=== PATIENT | male | born 1945 | race Caucasian/White ===

== ENCOUNTER → 2021-05-04 10:21 | Outpatient (CLI) | payer OTHER, SELFPAY ==
--- NOTE | ~2021-05-04 | XR_ITS ---
EXAMINATION: XR chest 2V EXAM DATE: 05/04/2021 10:50 INDICATION: R06.02 - Shortness of breath TECHNIQUE: Frontal and lateral projections of the chest obtained and reviewed. There is no prior basim dy for comparison. FINDINGS: Mild hyperinflation. The lungs are clear. There are no pleural effusions. The cardiomedia stinal silhouette is within normal limits. There is no pneumothorax suspected. Mild thoracic spondy losis. IMPRESSION: Mild hyperinflation. Clear lungs. Reviewed, dictated and finalized at location A.
== END ==
PROVIDERS: PCP Internal Medicine; Visit Provider Internal Medicine
DX: R06.02 Shortness of breath (principal); R91.8 Other nonspecific abnormal finding of lung field
CPT/HCPCS: 71046

== ENCOUNTER → 2021-06-27 03:51 | Outpatient (CLI) | payer OTHER, SELFPAY ==
[2021-06-28 19:26] LABS: SARS-CoV-2 RNA PCR Negative
== END ==
PROVIDERS: PCP Internal Medicine; Visit Provider Specialist
DX: Z01.812 Encounter for preprocedural laboratory examination (principal); Z20.822 Contact with and (suspected) exposure to COVID-19
CPT/HCPCS: C9803; U0003; U0005

== ENCOUNTER 2021-06-30 02:27 | Day surgery (SDC) | payer OTHER, SELFPAY ==
[2021-06-29 13:38] VITALS: BMI 31.4
[2021-06-30] VITALS (14 sets, daily range): BP systolic 107–158; BP diastolic 71–88; PULSE 50–76; RESP 14–22; TEMP 36.2–36.4; O2SAT 96–100; BMI 31.5
[2021-06-30 07:53] LABS: Basophils Percent Auto 0.5 % (0.2-1.2); Eosinophils Percent Auto 0.7 % (0-4.4); Hematocrit 43.6 % (42.0-52.0); Immature Granulocyte Absolute 0.02 K/mm3 (0.00-0.031); Immature Granulocyte Percent A 0.3 % (0-0.5); Lymphocytes Absolute Auto 1.36 K/mm3 (0.9-3.2); Lymphocytes Percent Auto 22.5 % (18.3-44.2); Mean Corpuscular HGB Conc 34.4 g/dl (32-36); Mean Corpuscular Hemoglobin 31.8 pg (26-34); Mean Corpuscular Volume 92.4 fl (80-100); Mean Platelet Volume 10.2 fl (7.4-10.4); Monocytes Absolute Auto 0.5 K/mm3 (0.1-0.6); Monocytes Percent Auto 8.9 % (2.6-8.5); Neutrophils Absolute Auto 4.1 K/mm3 (1.3-6.7); Neutrophils Percent Auto 67.1 % (45.5-73.1); Platelet Count Result 203 k/mm3 (150-375); Red Blood Count 4.72 M/mm3 (4.6-6.20); Red Cell Distribution Width 12.4 % (11.5-14.5); White Blood Count 6.1 K/mm3 (4.5-10.0)
[2021-06-30 08:03] LABS: Prothrombin Time 12.9 Seconds (11.1-14.7)
[2021-06-30 08:05] LABS: Anion Gap 9 mmol/L (8-16); Blood Urea Nitrogen 13 mg/dL (9-20); Calcium 9.4 mg/dL (8.4-10.2); Carbon Dioxide 28 mmol/L (22-30); Chloride 105 mmol/L (98-107); Estimated CRCL calculation 66 ml/min; Estimated Glomerular Filt Rate > 60; Glucose 101 mg/dL (65-110); Potassium 4.1 mmol/L (3.4-5.0); Sodium 142 mmol/L (137-145)
--- NOTE | 2021-06-30 08:57 | PM.IMHP ---
H&P: HPI History of Present Illness Date/Time: 06/30/21 08:57 Chief Complaint: Symptoms of exertional dyspnea, abnormal stress echocardiogram Narrative: This is a 75-year-old man who was seen by me in consultation as an outpatient who is scheduled today for an outpatient elective left heart catheterization. The patient has no prior history of documented cardiac problems but was referred to see me in the office because of shortness of breath. He noticed that for the last couple of months he would have some very mild shortness of breath with activity that was not bothering him in the past. He had previously been seen by 1 of my former partners number of years ago but does not remember the reason for that consultation. He does not remember there being any cardiac pathology identified however. The patient is not reporting a sense of chest pain pressure or heaviness. He does not have any orthopnea PND or accumulating lower extremity edema. After being seen in the office in consultation a stress echocardiogram was performed which showed some nonspecific ST segment changes on the treadmill but appeared to show wall motion abnormalities compatible with anterior ischemia. Because of this of angiogram was recommended and he is admitted for that today. He otherwise considers himself to be in fairly good health until recent years he was exercising regularly he then developed a back injury and had to stop exercising for that reason. 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 Past medical history is otherwise remarkable for obesity and sleep apnea. [facility] Past Medical History Medical History Cardiac arrhythmia Sleep apnea Family History Family History Mother Heart disease Father Heart disease Social History Social History Smoking status: Former smoker Substance use: never Living arrangements: with family Meds Home Medications and Allergies Home Medications Medication Instructions Recorded Confirmed Type cyclosporine [Restasis] 1 drp EACH EYE BID 06/29/21 06/29/21 History gabapentin 200 mg PO DAILY 06/29/21 06/29/21 History Allergies Allergy/AdvReac Type Severity Reaction Status Date / Time No Known Allergies Allergy Verified 06/29/21 13:35 Vital Signs Vital Signs - 24 hr 06/30/21 08:04 Temperature 36.4 C L Pulse Rate 76 Respiratory Rate 22 H Blood Pressure 158/88 H Pulse Oximetry 96 Exam Const: General: comfortable and no acute distress Other: Pleasant comfortable gentleman appearing his stated age no distress HENMT: Mouth: Yes moist mucous membranes Eyes: Sclera: sclerae normal Pupils: Equal, round and reactive pupils present Neck: Neck: supple and no JVD Thyroid: thyroid normal Resp: Effort & Inspection: normal respiratory effort Auscultation: clear to auscultation bilaterally Cardio: Rate: regular rate Rhythm: regular rhythm Other: PMI nondisplaced no murmur no gallop no rub GI: GI Palp: Yes Soft to palpation Auscultation: normal bowel sounds Skin: General skin exam: normal color Neuro: Cognition (Neuro): normal cognition Extrem: General: normal to inspection H&P: Results Labs Labs: Short CBC 06/30/21 Range/Units 07:43 WBC 6.1 (4.5-10.0) K/mm3 Hgb 15.0 (14.0-18.0) g/dL Hct 43.6 (42.0-52.0) % Plt Count 203 (150-375) k/mm3 [facility] 06/30/21 07:43 Sodium 142 Potassium 4.1 Chloride 105 Carbon Dioxide 28 BUN 13 Creatinine 1.10 Glucose 101 Calcium 9.4 Assessment and Plan Additional Plan 75-year-old man with symptoms of shortness of breath with activity. His stress echocardiogram done as an outpatient suggests the possibility of underlying coronary disease and for this reason an angiogram has been scheduled for today. That will be performed as scheduled and further elsie
--- NOTE | 2021-06-30 09:56 | WPDMODSED ---
Moderate Sedation Note-Pt Data Patient Data Diagnosis: Exertional angina of recent onset abnormal stress echo Present Complaint: this is a 75-year-old man without previous knowledge of coronary disease he has been experiencing exertional dyspnea with chest discomfort typical of angina for about 2 months. A stress echo done as an outpatient with abnormal suggesting anterior ischemia. Following this angiography was recommended Procedure to be performed/Plan: coronary angiography left ventriculography Allergies Allergy/AdvReac Type Severity Reaction Status Date / Time No Known Allergies Allergy Verified 06/29/21 13:35 Home Medications Medication Instructions Recorded Confirmed Type cyclosporine [Restasis] 1 drp EACH EYE BID 06/29/21 06/29/21 History gabapentin 200 mg PO DAILY 06/29/21 06/29/21 History Current Medications: Active Medications Sodium Chloride (Normal Saline Iv) 500 mls @ 100 mls/hr IV CONT .Q5H JAY Sedation/Anesthesia: No previous sedation/anesthesia problems (including family history). PMFSH Past Medical History Medical History Cardiac arrhythmia Sleep apnea Family History Family History Mother Heart disease Father Heart disease Social History Social History Smoking status: Former smoker Substance use: never Living arrangements: with family Mod Sed Physical Exam Physical Exam Pre Procedural Exam: Normal: Appearance, Neck, Throat, Airway, Lungs, Heart Size, Heart Rate, Heart Rhythm, Neuro Exam and Extremities Hours since solid foods: 12 Hours since liquid intake: 12 Mallampati Classification: class II Internal Medicine - PN: Obj Da Vital Signs Vital Signs: Vital Signs - 24 hr 06/30/21 08:04 Temperature 36.4 C L Pulse Rate 76 Respiratory Rate 22 H Blood Pressure 158/88 H Pulse Oximetry 96 Meds/Results Medications: Active Medications Generic Name Dose Route Start Last Admin Trade Name Freq PRN Reason Stop Dose Admin Sodium Chloride 500 mls @ 100 mls/hr 06/30/21 07:30 Normal Saline Iv IV CONT .Q5H JAY Labs CBC & Chem 7: 06/30/21 07:43 06/30/21 07:43 Labs: Laboratory Results - last 24 hr 06/30/21 06/30/21 06/30/21 07:43 07:43 07:43 WBC 6.1 RBC 4.72 Hgb 15.0 Hct 43.6 MCV 92.4 MCH 31.8 MCHC 34.4 RDW 12.4 Plt Count 203 MPV 10.2 Immature Gran % (Auto) 0.3 Neut % (Auto) 67.1 Lymph % (Auto) 22.5 Tift % (Auto) 8.9 H Eos % (Auto) 0.7 Baso % (Auto) 0.5 Lymph # (Auto) 1.36 [place]ift # (Auto) 0.5 Eos # (Auto) 0.0 Baso # (Auto) 0.0 Abs Immat Gran (auto) 0.02 Absolute Neuts (auto) 4.1 Absolute Nucleated RBC 0.0 Nucleated RBC % 0.0 PT 12.9 INR 1.0 Sodium 142 Potassium 4.1 Chloride 105 Carbon Dioxide 28 Anion Gap 9 BUN 13 Creatinine 1.10 Estim Creat Clear Calc 66 Estimated GFR > 60 Glucose 101 Calcium 9.4 ASA Classification/Sedation ASA Classification/Sedation ASA Class: III Emergent: No Risks: Risks, benefits and alternatives explained and patient/family accepted plan for sedation. Patient re-evaluated immediately prior to sedation.
--- NOTE | 2021-06-30 10:00 | WPDCARDPROC ---
Cardiac Cath Procedure Note Date of procedure:: 06/30/21 Performing physician:: Efren Sawyer MD Indication:: exertional chest discomfort and dyspnea abnormal stress echo Brief clinical history:: this is a 75-year-old man with no previous history of coronary disease present of experiencing exertional discomfort for about 2 months suggestive of angina. Stress echo done in the office was significantly abnormal prompting recommendation to perform an angiogram. Procedure Procedure performed:: Left ventriculography coronary angiography Sedation/Medication given:: fentanyl 50 mg Versed 2 mg case start time 9:22 a.m. case end time 9:48 a.m. sedation provided by Awilda Guajardo RN, trained observer Access site:: right femoral artery Estimated blood loss:: 15 cc Procedure note:: patient was brought to the cardiac catheterization lab in the postabsorptive state the right femoral triangle was prepared and draped in the usual fashion. Anesthesia was provided with 1% lidocaine infiltrated locally. Using the modified Seldinger technique the femoral artery was punctured and a 5 Slovenian vascular sheath was placed. After this left heart catheterization was carried out. I used a 5 Slovenian angled pigtail catheter to engage and inject the left ventricle in the VILLEDA projection and to document left-sided hemodynamics. Following this the left coronary artery was engaged and injected using a standard 5 Slovenian FL4 catheter. The right coronary artery was engaged and injected using a standard 5 Slovenian JR4 catheter. The cineangiograms were then reviewed in detail. Following this the case was terminated the patient was taken to the holding area for manual sheath removal. Procedure was uncomplicated he left the track repair laborer but no evidence of a groin hematoma. Findings:: Hemodynamics: Central aortic pressure was 138/64 left ventricle 135 over 0 end-diastolic 8 there is no significant gradient on pullback across the aortic valve. Left ventricle: The left ventricle is normal in size all segments contract appropriately the global ejection fraction of visually estimated to be 65%. The left main coronary artery is large caliber and widely patent the left anterior descending is a moderate caliber artery extending down to around the apex. The proximal half of the LAD is moderately calcified. There is a high-grade 90% stenosis just prior to the origin of the 1st diagonal branch. This region of the LAD is significantly calcified is mentioned above. The 1st diagonal branch has a 80% stenosis in the midportion. There is 90-95% stenosis more diffusely in the midportion of the LAD immediately after the origin of the 2nd diagonal branch. Distal to this the LAD is of medium caliber but is free of significant stenosis. The LAD then goes on to provide collateral flow to the RPDA which is a medium-sized vessel. The circumflex is a moderate to large caliber artery in the trunk. The proximal to marginal branches are very small and diminutive with mild diffuse disease. There is minimal luminal irregularity in the trunk of the circumflex but no significant disease. The right coronary artery is large in caliber and dominant to the posterior circulation. The trunk of the right coronary artery has minimal irregularities but no significant lesions. The RPDA after short distance is totally occluded and is dictated above receives collateral filling from the LAD. The RPL branch is a medium caliber vessel with a discrete 80% stenosis. Conclusion:: 1. Severe 2 vessel coronary artery disease involving high-grade stenosis of the proximal LAD which is significantly calcified as well as high-grade stenosis in the midportion which involves the origin of the 2nd diagonal branch. There was also 80% stenosis in a medium size 1st diagonal. 2. 100% occlusion of the RPDA which is collateralized from the LAD. 3. 80% stenosis of the RPL branch medium size vessel 4.
--- NOTE | 2021-06-30 13:44 | PM.DS ---
DS: Admitting Diagnosis Discharge Date 06/30/2020 Admitting Diagnosis Coronary artery disease DS: Discharge Diagnosis Discharge Diagnosis (1) Coronary artery disease involving [place] coronary artery of [place] heart: Code(s): I25.10 - Atherosclerotic heart disease of [place] coronary artery without angina pectoris Status: Acute DS: Summary Hospital Course Reason for hospitalization: Left heart catheterization Hospital Course: This is a 75-year-old man without previous documented history of coronary disease with a recent onset of exertional chest pain. An exercise stress test done after outpatient consultation was abnormal indicating anterior ischemia. He was brought in today for elective outpatient catheterization. He was found to have severe disease in the LAD and right coronary artery. He has moderate calcification in the proximal LAD with there is a 90% stenosis. He has another 90-95% stenosis in the midportion of the vessel and the LAD then proceeds to collateralize occluded RPDA. There is also an 80% stenosis and a moderate size posterolateral branch of the right coronary artery. With this anatomy complex PCI was recommended. Because of the calcification in the LAD was felt to be safer for the patient for this to occur at a larger hospital. His choice was to be referred to [facility]. This will take place as an outpatient. In the meantime he will to be placed on standard medical therapy including aspirin, clopidogrel, metoprolol and rosuvastatin. Following recovery from his sheath removal as long as there is no difficulty with a groin hematoma he will be discharged this afternoon he will be contacted by Interventional strategic planning consultant at [facility] for PCI of the lesions described above. Status at Discharge Functional status at discharge: independent ambulation Time Spent with Patient Time attestation: Total time spent providing and/or coordinating discharge services: Time spent: Less than 30 minutes Exam Const: General: comfortable and no acute distress HENMT: Mouth: Yes moist mucous membranes Eyes: Sclera: sclerae normal Pupils: Equal, round and reactive pupils present Neck: Neck: supple and no JVD Thyroid: thyroid normal Resp: Effort & Inspection: normal respiratory effort Auscultation: clear to auscultation bilaterally Cardio: Rate: regular rate Rhythm: regular rhythm Other: No murmur no gallop GI: GI Palp: Yes Soft to palpation Auscultation: normal bowel sounds Skin: General skin exam: normal color Neuro: General: gait normal Extrem: General: normal to inspection DS: Data Data Completed and Pending Labs on day of discharge: Labs from last 24 hours 06/30/21 06/30/21 06/30/21 07:43 07:43 07:43 WBC 6.1 RBC 4.72 Hgb 15.0 Hct 43.6 MCV 92.4 MCH 31.8 MCHC 34.4 RDW 12.4 Plt Count 203 MPV 10.2 Immature Gran % (Auto) 0.3 Neut % (Auto) 67.1 Lymph % (Auto) 22.5 [place] % (Auto) 8.9 H Eos % (Auto) 0.7 Baso % (Auto) 0.5 Lymph # (Auto) 1.36 [place] # (Auto) 0.5 Eos # (Auto) 0.0 Baso # (Auto) 0.0 Abs Immat Gran (auto) 0.02 Absolute Neuts (auto) 4.1 Absolute Nucleated RBC 0.0 Nucleated RBC % 0.0 PT 12.9 INR 1.0 Sodium 142 Potassium 4.1 Chloride 105 Carbon Dioxide 28 Anion Gap 9 BUN 13 Creatinine 1.10 Estim Creat Clear Calc 66 Estimated GFR > 60 Glucose 101 Calcium 9.4 Discharge Plan Discharge Patient Disposition: Home, Self-Care Stand Alone Forms: General Discharge Instructions Discharge Medications: No Action gabapentin 100 mg capsule 200 mg PO DAILY RF: 0 Restasis 0.05 % Dropperette 1 drp EACH EYE BID RF: 0
--- NOTE | 2021-06-30 16:45 | SUR.PHASEII ---
DISCHARGED HOME, OUT VIA WC, TO 'S WAITING CAR, WITH ALL PERSONAL BELONGINGS AND DISCHARGE PACKET. VOICES NO C/O. NO DISTRESS NOTED.
== END 2021-06-30 16:45 | disposition home or self-care (01) ==
PROVIDERS: PCP Internal Medicine; Visit Provider Specialist
PROC: 4A023N7 Measurement of Cardiac Sampling and Pressure, Left Heart, Percutaneous Approach (ICD-10-PCS; CPT 93452; principal; 2021-06-30 09:00)
DX: I25.10 Atherosclerotic heart disease of native coronary artery without angina pectoris (principal); R94.39 Abnormal result of other cardiovascular function study; R07.89 Other chest pain; R06.00 Dyspnea, unspecified; G47.30 Sleep apnea, unspecified; I49.9 Cardiac arrhythmia, unspecified; Z87.891 Personal history of nicotine dependence; R06.02 Shortness of breath
CPT/HCPCS: 36415; 80048; 85025; 85610; 93458; C1887; C1894; C9803; J0461; J1644; J2250; J3010; J7040; U0003; U0005

== ENCOUNTER 2021-10-18 15:00 | Outpatient (RCR) | payer OTHER, SELFPAY ==
[2021-08-04 13:59] VITALS: PULSE 57
[2021-08-04 14:07] VITALS: BP 124/60; PULSE 57; RESP 16; O2SAT 97
== END 2021-11-02 15:31 | disposition home or self-care (01) ==
LOC: ANHCPREHAB 15:00
PROVIDERS: PCP Internal Medicine; Visit Provider Specialist
DX: Z95.5 Presence of coronary angioplasty implant and graft (principal)
CPT/HCPCS: 93798

== ENCOUNTER → 2021-10-23 07:36 | Outpatient (CLI) | payer OTHER, SELFPAY ==
--- NOTE | ~2021-10-23 | XR_ITS ---
EXAMINATION: XR shoulder LT min 2V DATE: 10/23/2021 07:57 INDICATION: Left shoulder pain. TECHNIQUE: 4 views of left shoulder were obtained. COMPARISON: None. FINDINGS: Bone alignment is normal. No fracture. There is mild osteoarthritis of glenohumeral joint a nd severe osteoarthritis of acromioclavicular joint. IMPRESSION: 1. Polyarticular osteoarthritis. Reviewed, dictated and finalized at location A. MOGRAPH OPERATOR HELPER
== END ==
PROVIDERS: PCP Internal Medicine; Visit Provider Nurse Practitioner
DX: M19.012 Primary osteoarthritis, left shoulder (principal)
CPT/HCPCS: 73030

== ENCOUNTER → 2021-10-26 08:59 | Outpatient (CLI) | payer OTHER, SELFPAY ==
--- NOTE | ~2021-10-26 | XR_ITS ---
XR ankle LT min 3V DATE: 10/26/2021 09:26 INDICATION: Left ankle and foot pain TECHNIQUE: 4 views COMPARISON: None FINDINGS: There is mild plantar and posterior calcaneal enthesopathy. No fracture or dislocation of the ankle or disruption of the ankle mortise. No periosteal reaction or bone destruction. There is mild lateral soft tissue swelling of the ankle. IMPRESSION: Mild lateral soft tissue swelling of the ankle; no fracture or dislocation Plantar and posterior calcaneal enthesopathy Reviewed, dictated and finalized at location B. ATTE OPERATOR IMPRESSION: Mild lateral soft tissue swelling of the ankle; no fracture or disl ocation Plantar and posterior calcaneal enthesopathy
--- NOTE | ~2021-10-26 | XR_ITS ---
XR foot LT min 3V DATE: 10/26/2021 09:25 INDICATION: Left ankle and foot pain TECHNIQUE: 4 views COMPARISON: None FINDINGS: There is tibiotalar joint osteoarthritis. There is severe joint space narrowing and promine nt spurring at the first metatarsophalangeal joint consistent with severe osteoarthritis. There is os teoarthritic change at some of the interphalangeal joints. Mild plantar and posterior calcaneal enthesopathy without associated erosive change or periostitis. No fracture or dislocation, periosteal reaction or bone destruction is detected. IMPRESSION: Polyarticular osteoarthritis, particularly severe at the first metatarsophalangeal joint Plantar and posterior calcaneal enthesopathy Reviewed, dictated and finalized at location B. PRINT PROCESSOR IMPRESSION: Polyarticular osteoarthritis, particularly severe at the first meta tarsophalangeal joint Plantar and posterior calcaneal enthesopathy
== END ==
PROVIDERS: Visit Provider Nurse Practitioner
DX: M19.072 Primary osteoarthritis, left ankle and foot (principal); M79.89 Other specified soft tissue disorders
CPT/HCPCS: 73610; 73630

== ENCOUNTER 2021-10-26 10:11 | Outpatient (CLI) | payer OTHER, SELFPAY ==
--- NOTE | ~2021-10-26 | US_ITS ---
EXAMINATION: US venous doppler [facility] DATE: 10/26/2021 11:05 INDICATION: Left lower extremity pain TECHNIQUE: Bro scale images without and with compression and Doppler images of the left lower extrem ity veins were obtained. COMPARISON: None FINDINGS: The left common femoral vein, profunda femoral vein, femoral vein, popliteal vein, peroneal trunk, posterior tibial veins, and greater saphenous vein are patent. There is a 2.3 x 1.9 x 1.2 cm hypoechoic soft tissue mass superior to the lateral malleolus. IMPRESSION: 1. Patent left lower extremity veins. No evidence of deep venous thrombosis. 2. Soft tissue mass superior to the lateral malleolus, possibly a posttraumatic hematoma. Recommend c linical correlation and follow-up ultrasound if finding does not resolve. Reviewed, dictated and finalized at location A. VE TURNER IMPRESSION: 1. Patent left lower extremity veins. No evidence of deep venous thrombosis. 2. Soft tissue mass superior to the lateral malleolus, possibly a posttraumatic hematoma. Recommend clinical correlation and follow-up ultrasound if finding d oes not resolve.
== END 2021-10-26 10:12 | disposition home or self-care (01) ==
PROVIDERS: PCP Internal Medicine; Visit Provider Nurse Practitioner
DX: M79.672 Pain in left foot (principal)
CPT/HCPCS: 93971

== ENCOUNTER 2021-11-07 15:17 | Inpatient (IN) | payer OTHER, SELFPAY ==
--- NOTE | ~2021-11-07 | XR_ITS ---
EXAMINATION: XR chest 2V DATE: 11/07/2021 16:16 INDICATION: Chest pain TECHNIQUE: PA and lateral views of the chest are obtained. COMPARISON: 05/04/2021 FINDINGS: There is mild atelectasis of the left lung base. A coronary artery stent is noted. There is no pleural effusion or pneumothorax. The cardiomediastinal silhouette is normal. There is moderate t horacic spondylosis. IMPRESSION: 1. No acute cardiopulmonary abnormality. Reviewed, dictated and finalized at location A. NESS SUPPORT 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
--- NOTE | 2021-11-07 15:19 | ECG_ITS ---
Measurements Intervals [place] Rate: 161 P: ME: 0 QRS: 4 QRSD: 86 T: 40 QT: 280 QTc: 459 Interpretive Statements ATRIAL FIBRILLATION WITH RAPID VENTRICULAR RESPONSE NONSPECIFIC ST & T-WAVE ABNORMALITY ABNORMAL ECG NO PREVIOUS ECG AVAILABLE FOR COMPARISON Electronically Signed On 11-07-2021 15:55:05 HOG WORKER by Colby Winters M.D.
[2021-11-07 15:36] VITALS: BP 121/83; RESP 24; TEMP 36.6; O2SAT 98
[2021-11-07 15:53] LABS: Basophils Percent Auto 0.1 % (0.2-1.2); Immature Granulocyte Absolute 0.12 K/mm3 (0.00-0.031); Immature Granulocyte Percent A 0.7 % (0-0.5); Lymphocytes Absolute Auto 0.98 K/mm3 (0.9-3.2); Lymphocytes Percent Auto 5.4 % (18.3-44.2); Mean Corpuscular HGB Conc 33.3 g/dl (32-36); Mean Corpuscular Hemoglobin 30.9 pg (26-34); Mean Corpuscular Volume 92.7 fl (80-100); Mean Platelet Volume 10.3 fl (7.4-10.4); Monocytes Absolute Auto 1.4 K/mm3 (0.1-0.6); Monocytes Percent Auto 7.9 % (2.6-8.5); Neutrophils Absolute Auto 15.7 K/mm3 (1.3-6.7); Neutrophils Percent Auto 85.9 % (45.5-73.1); Platelet Count Result 275 k/mm3 (150-375); Red Blood Count 5.18 M/mm3 (4.6-6.20); Red Cell Distribution Width 12.7 % (11.5-14.5); White Blood Count 18.2 K/mm3 (4.5-10.0)
--- NOTE | 2021-11-07 15:58 | ECG_ITS ---
Measurements Intervals [place] Rate: 93 P: 34 [place]: 138 QRS: 11 QRSD: 87 T: 20 QT: 327 QTc: 407 Interpretive Statements SINUS RHYTHM NORMAL EKG COMPARED TO ECG 11/07/2021 15:26:07 SINUS RHYTHM NOW PRESENT Electronically Signed On 11-08-2021 9:00:43 ANIMAL RESCUER by Colby Winters M.D.
[2021-11-07 16:05] LABS: Alanine Aminotransferase 26 U/L (4-50); Albumin Level 4.6 g/dL (3.5-5.1); Alkaline Phosphatase 91 U/L (38-126); Anion Gap 12 mmol/L (8-16); Aspartate Amino Transferase 40 U/L (17-59); Bilirubin,Total 1.8 mg/dL (0.2-1.3); Blood Urea Nitrogen 15 mg/dL (9-20); Calcium 9.1 mg/dL (8.4-10.2); Carbon Dioxide 22 mmol/L (22-30); Chloride 104 mmol/L (98-107); Estimated CRCL calculation 64 ml/min; Estimated Glomerular Filt Rate > 60; Glucose 150 mg/dL (65-110); INR 1.3; Lipase 52 U/L (23-300); Partial Thromboplastin Time 38.2 SECONDS (22.3-36.8); Potassium 4.3 mmol/L (3.4-5.0); Prothrombin Time 15.3 Seconds (11.1-14.7); Sodium 138 mmol/L (137-145)
--- NOTE | 2021-11-07 16:12 | ED.CHESTPAIN ---
HPI - Chest Pain General Chief Complaint: Chest Pain Stated Complaint: chest pain and shortness of breath Time Seen by Provider: 11/07/21 15:45 Source: patient Limitations: no limitations History of Present Illness HPI narrative: 76-year-old male with history of coronary artery disease SVT and atrial fibrillation presented to the emergency department for evaluation of substernal chest pain. Patient states last night he did have a brief episode of chest pain that did resolve with Tylenol. Patient states when he woke up this morning the chest pain had returned and was significantly worse. Patient describes a substernal chest pain as tight. Patient states he does have difficulty taking deep breath. Patient denies any radiation of the pain to his neck or back. Patient does have a history of coronary disease and did have stents placed in July 2021 patient states he has never had chest pain similar to this. Patient did measure his heart rate at home and stated he was running about 109. Upon arrival to the emergency department patient was in A. fib with RVR with a heart rate as high as the 150s. Patient did convert back to normal sinus rhythm and was in sinus tachycardia on initial evaluation. Patient states that he is still having chest pressure. In September 2021 patient did have follow-up with Dr. Mccloud with [facility] for evaluation for a possible ablation. Patient states he was not interested at ablation at the time. Patient did have a cardiac cath here in July by Dr. Sawyer but ultimately was transferred to [facility] for a complex PCI. Related Data Home Medications Medication Instructions Recorded Confirmed apixaban 5 mg PO BID 08/07/21 11/07/21 Allergies Allergy/AdvReac Type Severity Reaction Status Date / Time No Known Allergies Allergy Verified 10/26/21 08:29 Review of Systems Review of Systems: CONSTITUTIONAL: Denies fever, chills, or sweats. EYES: Denies visual changes, redness, or discharge. ENT: Denies rhinorrhea, congestion, sore throat, or otalgia. CARDIOVASCULAR: Substernal chest pain. RESPIRATORY: Feels he cannot take a full breath. GASTROINTESTINAL: Denies abdominal pain, nausea, vomiting, or diarrhea. GENITOURINARY: Denies dysuria or hematuria. SKIN: Denies rash or itching. MUSCULOSKELETAL: Denies back pain, joint pain, or myalgia. NEUROLOGIC: Denies headache, numbness, or weakness. PSYCHIATRIC: Denies anxiety or depression. [facility] Past Medical History Medical History (Updated 11/07/21 @ 22:13 by Jam Felder MD) Cardiac arrhythmia Dyslipidemia Paroxysmal atrial fibrillation Sleep apnea SVT (supraventricular tachycardia) Surgical History Surgical History (Updated 11/07/21 @ 20:10 by Layla Raza APRN) History of coronary artery stent placement Family History Family History (Updated 11/07/21 @ 20:55 by Nayana Mitchell RN) Mother Heart disease Cerebrovascular accident Father Heart disease Sibling Heart disease Afib Social History Social History Smoking packs per day: 0.5 Smoking cigarettes per day: 10.0 Years smoked: 15 Smoking pack-years: 7.50 Smoking status: Former smoker Tobacco type: cigarettes Second hand tobacco smoke exposure: Yes (as a child) Smoking end date: 09/09/81 Alcohol intake: never Substance use: never Substance use type: does not use Spiritual care concerns: No Exam Narrative: APPEARANCE: Well appearing, no pain, no distress, well-nourished. HEAD: normocephalic, atraumatic. EYES: PERRLA/EOMI, conjunctivae clear. THROAT: Pharynx clear, no exudate. NECK: Supple. No adenopathy, no masses. RESPIRATORY: Airway patent, respirations nonlabored. Clear to auscultation bilaterally, no rales, rhonchi, wheezing. CARDIOVASCULAR: Sinus tachycardia with a rate of 104. No murmurs rubs or gallops. ABDOMINAL: Soft, nontender, nondistended, normal bowel sounds MUSCULOSKE
[2021-11-07 16:15] LABS: Troponin I < 0.012 ng/mL (0.000-0.034)
[2021-11-07] MEDS: NITROGLYCERIN SL 0.4 MG TABLET SUBLINGUAL (16:51)
[2021-11-07] MEDS: ASPIRIN 81 MG CHEWABLE TABLET 324 MG PO (16:52)
[2021-11-07 18:23] LABS: Troponin I 0.014 ng/mL (0.000-0.034)
[2021-11-07 19:18] VITALS: BP 107/70; PULSE 93; RESP 17; O2SAT 98
[2021-11-07 19:34] LABS: SARS-CoV-2 RNA PCR Negative
--- NOTE | 2021-11-07 19:44 | PM.IMHP ---
H&P: HPI History of Present Illness Date/Time: Patient was placed observation status for expected length of stay less than 23 hours for management, will plan to re-evaluate tomorrow for improvement. 11/07/21 19:44 Chief Complaint: Chest pain Narrative: Mr. Croft is a 76-year-old gentleman who presented to the emergency room with complaints of chest discomfort. Patient states he was having chest discomfort over his left breast area and call his primary care provider to see if he could be seen today and was told to come to the emergency room. The patient has a known history of coronary artery disease status post multivessel stent placement last year, SVT, paroxysmal atrial fibrillation, dyslipidemia, and obstructive sleep apnea. Patient states that today he began having this left chest discomfort that did not radiate anywhere, and felt like he could not ?catch a good breath?. Patient states that he took 2 Tylenol that mildly help the pain, but the pain began getting worse after a few hours. After patient's primary care provider told gone emergency room he did so. Upon evaluation in emergency room patient was noted be in atrial fibrillation with rapid ventricular response and Cardizem was to be given, but patient then converted to a normal sinus rhythm. Patient continued to have the chest discomfort so he was given nitroglycerin and patient became hypotensive. Patient states before he became hypotensive he states there was mild improvement in his chest discomfort, but that he began having lightheaded and dizziness. Patient denies any associated nausea or vomiting. Patient denied any associated diaphoresis. Patient had followed up with electrophysiology with [facility] group on September 12 and it was decided the patient was to have an SVT ablation and a loop recorder placed. Patient has a known history of coronary artery disease status post drug-eluting stent to a chronic totally occluded PDA, high-grade stenosis to the LAD, and RIGHT PVB that were all placed on 07/11/2021. Review of Systems Review of Systems: A 12 POINT REVIEW OF SYSTEMS WAS COMPLETED PATIENT ALL PERTINENT POSITIVE AND NEGATIVE PER HPI THE REMAINDER ARE UNREMARKABLE. [facility] Past Medical History Medical History (Updated 11/07/21 @ 20:13 by Layla Raza APRN) Cardiac arrhythmia Dyslipidemia Paroxysmal atrial fibrillation Sleep apnea SVT (supraventricular tachycardia) Surgical History Surgical History (Updated 11/07/21 @ 20:10 by Layla Raza APRN) History of coronary artery stent placement Family History Family History Mother Heart disease Cerebrovascular accident Father Heart disease Social History Social History Smoking packs per day: 1 Smoking cigarettes per day: 20.0 Years smoked: 14 Smoking pack-years: 14.00 Smoking status: Former smoker Tobacco type: cigarettes Second hand tobacco smoke exposure: Yes (as a child) Smoking end date: 09/09/81 Alcohol intake: never Substance use: never Substance use type: does not use Meds Home Medications and Allergies Home Medications Medication Instructions Recorded Confirmed Type clopidogrel 75 mg PO QAM #30 tablet 06/30/21 10/26/21 Rx metoprolol succinate 50 mg PO QAM #30 tablet 06/30/21 10/26/21 Rx rosuvastatin [Crestor] 10 mg PO QAM #30 tablet 06/30/21 10/26/21 Rx apixaban 5 mg PO BID 08/07/21 10/26/21 History ropinirole 1 mg tablet 1 mg PO QHS #30 tablet 10/23/21 10/26/21 Rx Allergies Allergy/AdvReac Type Severity Reaction Status Date / Time No Known Allergies Allergy Verified 10/26/21 08:29 Vital Signs Vital Signs - 24 hr 11/07/21 15:36 11/07/21 19:18 Temperature 36.6 C Pulse Rate 93 Respiratory Rate 24 H 17 Blood Pressure 121/83 107/70 Pulse Oximetry 98 98 Exam Narrative: Constitutional: Patient is well-nourished
[2021-11-07 20:48] VITALS: BP 118/74; PULSE 92; RESP 18; TEMP 36.9; O2SAT 99
--- NOTE | 2021-11-07 21:03 | ADMGEN ---
This patient, Olaf Croft, was admitted to IMU Room 206-01 at 2050 on 11/07/2021. Patient/family oriented to hospital policies and general routines including ID bracelet, bed and alarms, visiting hours, pain management, procedures, bathroom and other care routines, personal items, smoking policy, room service/diet, and visiting hours. Information on how to activate the Rapid Response Team has been discussed. Patient/Family are encouraged to report perceived risks to care and to ask questions if they do not understand what they are told or what they should do.
[2021-11-07 21:15] VITALS: BMI 29.7
[2021-11-07 21:38] LABS: Troponin I 0.017 ng/mL (0.000-0.034)
[2021-11-07 22:00] VITALS: PULSE 93
[2021-11-07 22:35] LABS: Thyroid Stimulating Hormone Reflex 0.999 uIU/mL (0.465-4.68)
[2021-11-07 23:26] VITALS: BP 116/68; PULSE 92; RESP 16; TEMP 37.3; O2SAT 98
[2021-11-07 23:45] VITALS: PULSE 88; RESP 25; O2SAT 96
[2021-11-08] VITALS (17 sets, daily range): BP systolic 110–150; BP diastolic 63–75; PULSE 65–128; RESP 16–22; TEMP 36.1–37.4; O2SAT 95–99
--- NOTE | 2021-11-08 | ECHO_ITS ---
Patient Info Name: Olaf Croft Age: 76 years : 1945 Gender: Male Ht: 72 in Wt: 220 lbs BSA: 2.27 m2 HR: 95 bpm BP: 110 / 63 mmHg Heart Rhythm: Sinus Rhythm Technical Quality: Fair Exam Date: 11/08/2021 10:35 AM Exam Location: [facility] Pulmonary Patient Status: Inpatient Admit Date: 11/07/2021 Staff Ordering Physician: Jero Johnston MD Call Center Support Consultant: Octavia Fuentes RDCS Attending Provider: Alexandra Martinez MD Exam Type: CA echo doppler color flow Study Info Indications - chest pain Complete two-dimensional, color flow and Doppler transthoracic echocardiogram is performed. Summary 1. Complete two-dimensional, color flow and Doppler transthoracic echocardiogram is performed. 2. Left ventricular chamber dimension is normal. 3. Left ventricular systolic function is normal, estimated at 65-70%. 4. There is mildly increased left ventricular wall thickness. 5. The left ventricular diastolic function is grade I diastolic dysfunction. 6. Left atrial chamber dimension is mildly enlarged. 7. There is mild aortic valve calcification. 8. There is mild mitral valve regurgitation. 9. There is mild tricuspid valve regurgitation. 10. There is small pericardial effusion. Left Ventricle Left ventricular chamber dimension is normal. Left ventricular systolic function is normal, estimated at 65-70%. There is mildly increased left ventricular wall thickness. The left ventricular diastolic function is grade I diastolic dysfunction. Right Ventricle Right ventricular chamber dimension is normal. Right ventricular systolic function is normal. Left Atria Left atrial chamber dimension is mildly enlarged. Right Atria Right atrial chamber dimension is normal. Atrial Septum Intact interatrial septum visualized by color flow imaging. Aortic Valve The aortic valve is trileaflet. There is mild aortic valve sclerosis. There is no aortic valve stenosis. There is trace aortic valve regurgitation. There is mild aortic valve calcification. Pulmonic Valve The pulmonic valve is normal. There is no pulmonic valve stenosis. There is trace pulmonic regurgitation. Mitral Valve The mitral valve has normal leaflets. There is no mitral valve stenosis. There is mild mitral valve regurgitation. Tricuspid Valve The tricuspid valve leaflets are normal. There is no significant tricuspid valve stenosis. There is mild tricuspid valve regurgitation. No pulmonary hypertension, estimated pulmonary arterial systolic pressure is 29 mmHg. Pericardium/Pleural The pericardium appears normal. There is small pericardial effusion. Inferior Vena Cava Dilated inferior vena cava with <50% collapse upon inspiration consistent with elevated right atrial pressure, 10 mmHg. Aorta The aortic root size at the sinus of Valsalva is normal. Left Ventricular Outflow Tract Name Value Normal LVOT 2D LVOT Diameter 2.1 cm LVOT Doppler LVOT Peak Gradient 7 mmHg LVOT Mean Gradient 3 mmHg LVOT VTI 21 cm LVOT VT
[2021-11-08 00:05] LABS: Add Urine Microscopic? YES; Appearance Urine Clear (Clear); Bacteria Urine Trace /hpf; Bilirubin Urine Negative (Negative); Blood Urine Negative (Negative); Color Urine Amber (Yellow); Glucose Urine UA Negative (Negative); Ketones Urine Negative (Negative); Leukocyte Esterase Ur Negative LEU/UL (Negative); Mucus Urine Few /lpf; Nitrate Urine Negative (Negative); Protein Urine Negative (Negative); RBC Urine 0-2 /hpf (0-2); Specific Grav Ur 1.028 (1.001-1.035); Squamous Epithelial Cell Urine Rare /hpf (Few); WBC Urine 0-3 /hpf
[2021-11-08 05:56] LABS: Basophils Percent Auto 0.3 % (0.2-1.2); Eosinophils Percent Auto 0.3 % (0-4.4); Hematocrit 42.4 % (42.0-52.0); Hemoglobin 14.1 g/dL (14.0-18.0); Immature Granulocyte Absolute 0.07 K/mm3 (0.00-0.031); Immature Granulocyte Percent A 0.6 % (0-0.5); Lymphocytes Absolute Auto 1.48 K/mm3 (0.9-3.2); Lymphocytes Percent Auto 13.1 % (18.3-44.2); Mean Corpuscular HGB Conc 33.3 g/dl (32-36); Mean Corpuscular Hemoglobin 31.3 pg (26-34); Mean Corpuscular Volume 94.2 fl (80-100); Mean Platelet Volume 10.8 fl (7.4-10.4); Monocytes Absolute Auto 1.3 K/mm3 (0.1-0.6); Neutrophils Absolute Auto 8.5 K/mm3 (1.3-6.7); Neutrophils Percent Auto 74.7 % (45.5-73.1); Platelet Count Result 228 k/mm3 (150-375); Red Cell Distribution Width 12.9 % (11.5-14.5); White Blood Count 11.3 K/mm3 (4.5-10.0)
[2021-11-08 06:12] LABS: Alanine Aminotransferase 21 U/L (4-50); Albumin Level 4.2 g/dL (3.5-5.1); Alkaline Phosphatase 72 U/L (38-126); Anion Gap 9 mmol/L (8-16); Aspartate Amino Transferase 28 U/L (17-59); Bilirubin,Total 1.6 mg/dL (0.2-1.3); Blood Urea Nitrogen 19 mg/dL (9-20); Calcium 8.8 mg/dL (8.4-10.2); Carbon Dioxide 30 mmol/L (22-30); Chloride 102 mmol/L (98-107); Estimated CRCL calculation 57 ml/min; Estimated Glomerular Filt Rate > 60; Glucose 118 mg/dL (65-110); Sodium 141 mmol/L (137-145)
--- NOTE | 2021-11-08 09:49 | PM.IMPN ---
Progress Note: A&P Assessment and Plan (1) Paroxysmal atrial fibrillation: Code(s): I48.0 - Paroxysmal atrial fibrillation Status: Acute Assessment and Plan: Patient had atrial fibrillation with RVR on route to the ED. Patient over to normal sinus rhythm prior to treatment. Patient maintained normal sinus rhythm. TSH is normal. Will resume his Eliquis. Will also resume Toprol-XL. Cardiology consult. Patient may need anti arrhythmics to maintain normal sinus rhythm. Continue telemetry. (2) Chest pain: Code(s): R07.9 - Chest pain, unspecified Status: Acute Assessment and Plan: Chest pain initially felt related to the AFib with RVR. However chest pain is more pleuritic in nature. EKG does show mild diffuse ST elevation so would consider pericarditis. Troponins are negative x3. EKG otherwise showing no acute changes to suggest acute coronary syndrome. Will check echocardiogram. Cardiology consult. Will hold on NSAIDs at this time given that he is on Eliquis. (3) CAD (coronary artery disease): Code(s): I25.10 - Atherosclerotic heart disease of [place] coronary artery without angina pectoris Status: Acute Assessment and Plan: Patient has a history of recent left heart catheterization with stent x4 placed in July 2021. Continue medical management with Plavix, Toprol and Crestor. (4) Sleep apnea: Code(s): G47.30 - Sleep apnea, unspecified Status: Inactive Assessment and Plan: Patient with compliant with his CPAP last night. Continue the same. Subjective Date/time seen: 11/08/21 09:49 Interval history: 76yo male with CAD, AFib and ZENA here for chest pain. Patient's presents with chest pain. Pain is in the upper chest bilaterally. He also feels some symptoms up into his anterior neck. He denies any sore throat or odynophasia. No fever or chills. He is compliant with his home medications. He has a heart monitor at home and noted that his heart rate was elevated. He tried Valsalva without benefit. The chest pain is pleuritic in nature but not palpable. He did convert to normal sinus rhythm. He was given nitroglycerin in the ED but this resulted in hypotension. Patient denies taking medications for erectile dysfunction. Currently he feels tired but denies any lightheadedness when he is up walking to the bathroom. He has some mild chest pain at this time. Exam Narrative: AF 98.1 110/63 87 16 97% ra Gen - NARD Chest - CTA bilaterally, nml RR CV - RRR S1/S2. Telemetry showing normal sinus rhythm with occasional PVCs. Abd - Soft, NT/ND, Positive BS Ext - No pedal edema Neuro - Alert and oriented. Nonfocal exam. Psych - Nml mood and affect Skin - Warm and dry. Small hematoma noted left lateral ankle. Objective Data Vital Signs Vital Signs: Vital Signs - 24 hr 11/07/21 15:36 11/07/21 19:18 11/07/21 20:48 Temperature 98 F 98.4 F Pulse Rate 93 92 Respiratory Rate 24 H 17 18 Blood Pressure 121/83 107/70 118/74 Pulse Oximetry 98 98 99 11/07/21 22:00 11/07/21 23:26 11/07/21 23:45 Temperature 99.1 F Pulse Rate 93 92 88 Respiratory Rate 16 25 H Blood Pressure 116/68 Pulse Oximetry 98 96 11/08/21 00:00 11/08/21 01:48 11/08/21 04:00 Temperature 99.4 F Pulse Rate 89 87 84 Respiratory Rate 20 Blood Pressure 112/74 Pulse Oximetry 98 97 11/08/21 05:57 11/08/21 08:00 Temperature 98.1 F Pulse Rate 83 87 Respiratory Rate 16 Blood Pressure 110/63 Pulse Oximetry 97 Intake/Output Intake/Output: Intake & Output 11/05/21 11/06/21 11/07/21 11/08/21 23:59 23:59 23:59 23:59 Intake Total 800 Output Total 400 Balance 400 Meds/Results Medications: Active Medications Generic Name Dose Route Start Last Admin Trade Name Freq PRN Reason Stop Dose Admin Apixaban 5 mg 11/08/21 09:00 Apixaban 5 Mg Tablet PO BID JAY Clopidogrel Bisulfate 75 mg 11/08/21 0
[2021-11-08] MEDS: ROSUVASTATIN 10 MG TABLET PO (09:55)
[2021-11-08] MEDS: APIXABAN 5 MG TABLET PO ×2 (09:55→16:54)
[2021-11-08] MEDS: rOPINIRole HCL 1 MG TABLET PO ×2 (09:55→20:12)
[2021-11-08] MEDS: CLOPIDOGREL BISULFATE 75 MG TABLET PO (09:55)
[2021-11-08] MEDS: METOPROLOL SUCCINATE EXT REL 50 MG TABCR PO (09:55)
--- NOTE | 2021-11-08 12:20 | PM.CNCAR ---
Assessment and Plan Assessment and plan (1) Chest pain: Qualifiers: Chest pain type: unspecified Qualified Code(s): R07.9 - Chest pain, unspecified Code(s): R07.9 - Chest pain, unspecified Status: Acute Assessment and Plan: His chest pain is not coronary in my opinion. He states it is different than his previous chest pain prior to stents. He clearly describes a pleuritic component to his chest pain and has been progressive and worsening since 2 days ago. Pericarditis could be a consideration but there is no rub and pain is not positionally dependent. This point check a stat ESR, CRP, D-dimer. If D-dimer is elevated, would recommend CT scan of the chest rule out for PE even though he is on anticoagulation. Echocardiogram is ordered and will be reviewed. Will give him a dose of Toradol 15 mg IV x1 (2) CAD (coronary artery disease): Code(s): I25.10 - Atherosclerotic heart disease of [place] coronary artery without angina pectoris Status: Acute Assessment and Plan: Status post multivessel PCI as detailed above. Continue clopidogrel, metoprolol and statin (3) Paroxysmal atrial fibrillation: Code(s): I48.0 - Paroxysmal atrial fibrillation Status: Acute Assessment and Plan: On Eliquis (4) SVT (supraventricular tachycardia): Code(s): I47.1 - Supraventricular tachycardia Status: Acute Assessment and Plan: Scheduled for ablation soon History of Present Illness History of Present Illness Consult date/time: 11/08/21 12:20 Requesting physician: Jam Felder MD Consult reason: chest pain and atrial fibrillation Reason For Visit: chest pain, paroxysmal atrial fibrillation with RV Narrative: Date of service 11/08/2021 Reason consultation: Chest pain, atrial fibrillation Requesting provider: Dr. Felder History: Patient is a 76-year-old male patient of Dr. Sawyer was a history of CAD who had multivessel intervention performed that [facility]. 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 He also has a arrhythmias including SVT and atrial fibrillation. He follows with electrophysiology at [facility] also. He came to hospital yesterday at the instruction of his PCP because of chest pain. Patient start developed chest pain 2 days ago that was worsened by breathing. It was persistent and progressive. It is nonexertional. It is not worsened or improved by positional movements/changes. He denies any chest pain similar to what he had prior to his stent placements. He denies any syncope, presyncope, paroxysmal nocturnal dyspnea, orthopnea, edema palpitations. He was found to be in atrial fibrillation with rapid ventricular response in the ER. He did spontaneously convert but he still had the pain even after conversion back to sinus rhythm. He was then given a nitroglycerin which did not help his pain at all but did drop his blood pressure and he felt presyncopal at that time. He was admitted for further evaluation. Troponins are negative x3. Review of Systems Review of Systems: All systems reviewed & are unremarkable except as noted in HPI and below Constitutional: Constitutional: Denies weakness Eyes: Eyes: Denies blurry vision ENT: Reports Normal hearing present Cardiovascular: Cardiovascular: Reports chest pain Respiratory: Respiratory: Denies dyspnea Gastrointestinal: Gastrointestinal: Denies abdominal pain Genitourinary: Genitourinary: Denies dysuria Musculoskeletal: Musculoskeletal: Denies neck pain Integumentary/Breasts: Skin/Breast: Denies dry skin Neurologic: Denies headache(s) Psychiatric: Psychiatric: Denies anxiety Endocrine: Endocrine: Denies fatigue Hematologic/Lymphatic: Hematologic/Lymphatic: Denies easy bleeding Allergic/Immunologic: Allergic/Immunologic: Denies GI upset with certain foods PMFSH Past Medical History Medical History (Reviewed 11/08/21
[2021-11-08 13:45] LABS: D Dimer 0.46 ug/mL (<0.48)
--- NOTE | 2021-11-08 13:55 | PCCCNOTE ---
On 11/08/21, the student, [Anitha Vora], provided care and completed [facility] documentation on this patient. I have reviewed the student's documentation and agree with the findings.
[2021-11-08 13:57] LABS: T4 Thyroxine 6.44 ug/dL (5.53-11.0)
[2021-11-08 14:21] LABS: Erythrocyte Sedimentation Rate 40 mm/hr (0-20)
[2021-11-08] MEDS: KETOROLAC 15 MG/ML VIAL (*BKC) IV PUSH (14:21)
[2021-11-08 14:41] LABS: CRP 18.4 mg/dL (<1.0)
--- NOTE | 2021-11-08 18:28 | ECG_ITS ---
Measurements Intervals [place] Rate: 147 P: [place]: 0 QRS: 9 QRSD: 87 T: 269 QT: 266 QTc: 416 Interpretive Statements ATRIAL FIBRILLATION WITH RAPID VENTRICULAR RESPONSE NONSPECIFIC T-WAVE ABNORMALITY ABNORMAL EKG COMPARED TO ECG 11/07/2021 17:58:19 ATRIAL FIBRILLATION NOW PRESENT T-WAVE ABNORMALITY NOW PRESENT Electronically Signed On 11-09-2021 15:20:39 CUSTOMER ADVISOR SPECIALIST by Colby Winters M.D.
[2021-11-09] VITALS (24 sets, daily range): BP systolic 95–126; BP diastolic 59–95; PULSE 57–152; RESP 17–22; TEMP 35.8–37; O2SAT 96–100
[2021-11-09] MEDS: METOPROLOL TARTRATE 50 MG TAB PO (01:26)
[2021-11-09 05:03] LABS: Basophils Percent Auto 0.2 % (0.2-1.2); Eosinophils Absolute Auto 0.1 K/mm3 (0-0.3); Eosinophils Percent Auto 0.5 % (0-4.4); Hematocrit 39.7 % (42.0-52.0); Hemoglobin 13.1 g/dL (14.0-18.0); Immature Granulocyte Absolute 0.07 K/mm3 (0.00-0.031); Immature Granulocyte Percent A 0.6 % (0-0.5); Lymphocytes Absolute Auto 1.33 K/mm3 (0.9-3.2); Lymphocytes Percent Auto 11.9 % (18.3-44.2); Mean Corpuscular Hemoglobin 31.2 pg (26-34); Mean Corpuscular Volume 94.5 fl (80-100); Mean Platelet Volume 10.7 fl (7.4-10.4); Monocytes Absolute Auto 1.1 K/mm3 (0.1-0.6); Monocytes Percent Auto 9.7 % (2.6-8.5); Neutrophils Absolute Auto 8.6 K/mm3 (1.3-6.7); Neutrophils Percent Auto 77.1 % (45.5-73.1); Platelet Count Result 206 k/mm3 (150-375); Red Cell Distribution Width 12.9 % (11.5-14.5); White Blood Count 11.2 K/mm3 (4.5-10.0)
[2021-11-09 05:19] LABS: Alanine Aminotransferase 20 U/L (4-50); Albumin Level 3.7 g/dL (3.5-5.1); Alkaline Phosphatase 79 U/L (38-126); Anion Gap 7 mmol/L (8-16); Aspartate Amino Transferase 30 U/L (17-59); Bilirubin,Total 1.2 mg/dL (0.2-1.3); Blood Urea Nitrogen 19 mg/dL (9-20); Calcium 8.5 mg/dL (8.4-10.2); Carbon Dioxide 27 mmol/L (22-30); Chloride 104 mmol/L (98-107); Estimated CRCL calculation 62 ml/min; Estimated Glomerular Filt Rate > 60; Glucose 128 mg/dL (65-110); Potassium 4.1 mmol/L (3.4-5.0); Sodium 138 mmol/L (137-145)
[2021-11-09] MEDS: METOPROLOL TARTRATE INJ 5 MG/5 ML VIAL IV PUSH (05:57)
[2021-11-09] MEDS: APIXABAN 5 MG TABLET PO ×2 (09:30→18:23)
[2021-11-09] MEDS: CLOPIDOGREL BISULFATE 75 MG TABLET PO (09:30)
[2021-11-09] MEDS: METOPROLOL SUCCINATE EXT REL 50 MG TABCR PO (09:30)
[2021-11-09] MEDS: ROSUVASTATIN 10 MG TABLET PO (09:30)
--- NOTE | 2021-11-09 11:53 | PM.IMPN ---
Progress Note: A&P Assessment and Plan (1) Paroxysmal atrial fibrillation: Code(s): I48.0 - Paroxysmal atrial fibrillation Status: Acute Assessment and Plan: Patient had atrial fibrillation with RVR on route to the ED. Patient converted to normal sinus rhythm prior to treatment. TSH is normal. We resumed his Eliquis and Toprol-XL. Cardiology was consult. Patient was maintaining normal sinus rhythm until last night when he developed AFib with RVR. He received multiple doses of metoprolol with limited success. Will discuss with Cardiology. Diltiazem IV once. Discussed with Cardiology (2) Chest pain: Code(s): R07.9 - Chest pain, unspecified Status: Acute Assessment and Plan: Chest pain initially felt related to the AFib with RVR. However chest pain is more pleuritic in nature. EKG does show mild diffuse ST elevation and Echo showing small pericardial effuusion so would consider pericarditis. Troponins are negative x3. EKG otherwise showing no acute changes to suggest acute coronary syndrome. Toradol once with benefit. Reluctant for nursing home NSAIDs given that he is on Eliquis and Plavix. (3) CAD (coronary artery disease): Code(s): I25.10 - Atherosclerotic heart disease of [place] coronary artery without angina pectoris Status: Acute Assessment and Plan: Patient has a history of recent left heart catheterization with stent x4 placed in July 2021. Continue medical management with Plavix, Toprol and Crestor. (4) Sleep apnea: Code(s): G47.30 - Sleep apnea, unspecified Status: Inactive Assessment and Plan: Patient with compliant with his CPAP. Continue the same. Subjective Date/time seen: 11/09/21 11:53 Interval history: 76yo male with CAD, AFib and ZENA here for chest pain. Was called last night due to elevated heart rate. Given order to the nurse to call Cardiology. Nurse states that no answer by the roller bearing inspector on-call. Exceptional Student Education Aide was called and patient received oral metoprolol 50 mg once around midnight and 5 mg IV metoprolol at 5:50 a.m.. Heart rate overnight remained in the 140 range. Patient has slight left-sided chest pain that he rates 1/10. It is pleuritic. He does have Tesfaye sensation in the anterior neck still. He does have a history of SVT and paroxysmal atrial fibrillation. He was supposed to be evaluated for an ablation but patient cancel this appointment. He states he does not have any palpitations when his heart rate is elevated. He does monitor his heart rate at home and states it never gets this high. Exam Narrative: AF 98.0 107/67 137 17 98% ra Gen - NARD Chest -few basilar rhonchi otherwise clear. CV -irregularly irregular. S1-S2. Tachycardic.. Telemetry showing AFib with RVR. Abd - Soft, NT/ND, Positive BS Ext -trace pedal edema Neuro - Alert and oriented. Nonfocal exam. Psych - Nml mood and affect Skin - Warm and dry. Small hematoma noted left lateral ankle and bruise on the left inner arm. Objective Data Vital Signs Vital Signs: Vital Signs - 24 hr 11/08/21 12:00 11/08/21 14:00 11/08/21 15:23 Temperature 96.9 F L Pulse Rate 86 82 78 Respiratory Rate 16 Blood Pressure 130/75 Pulse Oximetry 99 11/08/21 16:00 11/08/21 17:20 11/08/21 19:04 Temperature 97.1 F L 97.4 F L Pulse Rate 79 88 125 H Respiratory Rate 22 H 17 Blood Pressure 150/73 H 110/72 Pulse Oximetry 96 99 11/08/21 20:00 11/08/21 21:51 11/08/21 23:06 Temperature 97.9 F Pulse Rate 65 128 H 82 Respiratory Rate 18 18 Blood Pressure 114/73 Pulse Oximetry 98 95 11/08/21 23:07 11/09/21 00:00 11/09/21 02:00 Temperature 97.2 F L Pulse Rate 142 H 141 H Respiratory Rate 18 Blood Pressure 123/72 Pulse Oximetry 95 98 11/09/21 04:00 11/09/21 05:43 11/09/21 05:57 Temperature 96.4 F L Pulse Rate 150 H 145 H 151 H Respiratory Rate 18 Blood Pressure 104/67 Pulse Oximetry 97
--- NOTE | 2021-11-09 12:04 | PCCCNOTE ---
On 11/09/21, the student, [Priya Escobar], provided care and completed [facility] documentation on this patient. I have reviewed the student's documentation and agree with the findings.
[2021-11-09] MEDS: dilTIAZem HCl INJ 25 MG/5 ML VIAL 10 MG IV PUSH (12:14)
--- NOTE | 2021-11-09 13:21 | PM.PNCARD ---
Progress Note: A&P Assessment and Plan (1) Chest pain: Qualifiers: Chest pain type: unspecified Qualified Code(s): R07.9 - Chest pain, unspecified Code(s): R07.9 - Chest pain, unspecified Status: Acute Assessment and Plan: His chest pain is not coronary in my opinion. He states it is different than his previous chest pain prior to stents. He clearly describes a pleuritic component to his chest pain and has been progressive and worsening since 2 days ago. Pericarditis could be a consideration but there is no rub and pain is not positionally dependent. CRP was significantly elevated. Short course of NSAIDs recommended (2) CAD (coronary artery disease): Code(s): I25.10 - Atherosclerotic heart disease of [place] coronary artery without angina pectoris Status: Acute Assessment and Plan: Status post multivessel PCI as detailed above. Continue clopidogrel, metoprolol and statin (3) Paroxysmal atrial fibrillation: Code(s): I48.0 - Paroxysmal atrial fibrillation Status: Acute Assessment and Plan: On Eliquis. Will start patient on some amiodarone. Will start with 150 mg IV bolus and if he does not convert, will start a drip per standard protocol (4) SVT (supraventricular tachycardia): Code(s): I47.1 - Supraventricular tachycardia Status: Acute Assessment and Plan: Scheduled for ablation soon Subjective Date/time seen: 11/09/21 13:21 Interval history: 76yo male with CAD, AFib and ZENA here for chest pain. Date of service 11/09/2021: He responded to the Toradol that I gave him yesterday. He now only has a small amount of residual discomfort. Unfortunately he did revert back into atrial fibrillation overnight. He remains in atrial fibrillation with rapid ventricular response at this point. He otherwise feels okay and denies any chest pain or shortness of breath Review of Systems Review of Systems: All systems reviewed & are unremarkable except as noted in HPI and below Constitutional: Constitutional: Denies fatigue, Denies headache(s) and Denies weakness Eyes: Eyes: Denies blurry vision ENT: Reports Normal hearing present, Denies headache(s) and Denies neck pain Cardiovascular: Cardiovascular: Reports chest pain and Denies dyspnea Respiratory: Respiratory: Denies dyspnea Gastrointestinal: Gastrointestinal: Denies abdominal pain Genitourinary: Genitourinary: Denies dysuria Musculoskeletal: Musculoskeletal: Denies neck pain Integumentary/Breasts: Skin/Breast: Denies dry skin Neurologic: Reports Normal hearing present, Denies headache(s) and Denies weakness Psychiatric: Psychiatric: Denies anxiety Endocrine: Endocrine: Denies fatigue Hematologic/Lymphatic: Hematologic/Lymphatic: Denies easy bleeding Allergic/Immunologic: Allergic/Immunologic: Denies GI upset with certain foods Exam Narrative: Alert and oriented appears to be in no acute distress. Appears stated age Const: General: comfortable and no acute distress HENMT: General nose exam: Normal nares present Eyes: Sclera: sclerae normal Neck: Neck: supple and no JVD Chest: Other: No reproducible chest wall pain to palpation Resp: Auscultation: clear to auscultation bilaterally Cardio: Rate: tachycardic Rhythm: regular rhythm and abnormal rhythm GI: Inspection: non-distended Auscultation: normal bowel sounds Skin: General skin exam: normal color Neuro: Cranial nerves: Yes Normal hearing present Cognition (Neuro): normal cognition Speech: normal speech Extrem: General: normal to inspection and no edema Psych: Mental Status: mental status grossly normal Objective Data Vital Signs Vital Signs: Vital Signs - 24 hr 11/08/21 14:00 11/08/21 15:23 11/08/21 16:00 Temperature 36.2 C L Pulse Rate 82 78 79 Respiratory Rate 22 H Blood Pressure 150/73 H Pulse Oximetry 96 11/08/21 17:20 11/08/21 19:04 11/08/21 20:00 Temperature
[2021-11-09] MEDS: AMIODARONE 150 MG/D5W 100 ML 150 MG/100 ML BAG 600 MG IV CONT (14:12)
[2021-11-09] MEDS: rOPINIRole HCL 1 MG TABLET PO (20:25)
[2021-11-10] VITALS (11 sets, daily range): BP systolic 120–142; BP diastolic 64–81; PULSE 64–93; RESP 18–22; TEMP 36.5–36.8; O2SAT 95–98
[2021-11-10] MEDS: METOPROLOL SUCCINATE EXT REL 50 MG TABCR PO (09:23)
[2021-11-10] MEDS: CLOPIDOGREL BISULFATE 75 MG TABLET PO (09:23)
[2021-11-10] MEDS: ROSUVASTATIN 10 MG TABLET PO (09:23)
[2021-11-10] MEDS: APIXABAN 5 MG TABLET PO (09:24)
--- NOTE | 2021-11-10 09:46 | PM.PNCARD ---
Progress Note: A&P Assessment and Plan (1) Chest pain: Qualifiers: Chest pain type: unspecified Qualified Code(s): R07.9 - Chest pain, unspecified Code(s): R07.9 - Chest pain, unspecified Status: Acute Assessment and Plan: His chest pain is not coronary in my opinion. He states it is different than his previous chest pain prior to stents. He clearly describes a pleuritic component to his chest pain and has been progressive and worsening since 2 days ago. Probably pericarditis. CRP was significantly elevated. Ibuprofen 400 mg p.o. b.i.d. x7 day. GI prophylaxis needed. Will start pantoprazole 40 mg daily while patient is on NSAIDs. (2) CAD (coronary artery disease): Code(s): I25.10 - Atherosclerotic heart disease of [place] coronary artery without angina pectoris Status: Acute Assessment and Plan: Status post multivessel PCI as detailed above. Continue clopidogrel, metoprolol and statin (3) Paroxysmal atrial fibrillation: Code(s): I48.0 - Paroxysmal atrial fibrillation Status: Acute Assessment and Plan: On Eliquis. Will start patient on some amiodarone. Will start with 150 mg IV bolus and if he does not convert, will start a drip per standard protocol (4) SVT (supraventricular tachycardia): Code(s): I47.1 - Supraventricular tachycardia Status: Acute Assessment and Plan: Scheduled for ablation soon Subjective Date/time seen: 11/10/21 09:46 Interval history: 76yo male with CAD, AFib and ZENA here for chest pain. Date of service 11/09/2021: He responded to the Toradol that I gave him yesterday. He now only has a small amount of residual discomfort. Unfortunately he did revert back into atrial fibrillation overnight. He remains in atrial fibrillation with rapid ventricular response at this point. He otherwise feels okay and denies any chest pain or shortness of breath Date of service 11/10/2021: Still having some mild anterior discomfort in his chest but otherwise feeling okay and better. Feels like he can take a big breath. Review of Systems Review of Systems: All systems reviewed & are unremarkable except as noted in HPI and below Constitutional: Constitutional: Denies fatigue, Denies headache(s) and Denies weakness Eyes: Eyes: Denies blurry vision ENT: Reports Normal hearing present, Denies headache(s) and Denies neck pain Cardiovascular: Cardiovascular: Reports chest pain and Denies dyspnea Respiratory: Respiratory: Denies dyspnea Gastrointestinal: Gastrointestinal: Denies abdominal pain Genitourinary: Genitourinary: Denies dysuria Musculoskeletal: Musculoskeletal: Denies neck pain Integumentary/Breasts: Skin/Breast: Denies dry skin Neurologic: Reports Normal hearing present, Denies headache(s) and Denies weakness Psychiatric: Psychiatric: Denies anxiety Endocrine: Endocrine: Denies fatigue Hematologic/Lymphatic: Hematologic/Lymphatic: Denies easy bleeding Allergic/Immunologic: Allergic/Immunologic: Denies GI upset with certain foods Exam Narrative: Alert and oriented appears to be in no acute distress. Appears stated age Const: General: comfortable and no acute distress HENMT: General nose exam: Normal nares present Eyes: Sclera: sclerae normal Neck: Neck: supple and no JVD Chest: Other: No reproducible chest wall pain to palpation Resp: Auscultation: clear to auscultation bilaterally Cardio: Rate: tachycardic Rhythm: regular rhythm and abnormal rhythm Heart sounds: no murmurs and no rubs GI: Inspection: non-distended Auscultation: normal bowel sounds Skin: General skin exam: normal color Neuro: Cranial nerves: Yes Normal hearing present Cognition (Neuro): normal cognition Speech: normal speech Extrem: General: normal to inspection and no edema Psych: Mental Status: mental status grossly normal Objective Data Vital Signs Vital Signs: Vital Signs - 24 hr 11/09/21 10
--- NOTE | 2021-11-10 10:18 | WPDCDIQUERY2 ---
CDI Query Clarification Request -11/10 Cardiology documented: - His chest pain is not coronary in my opinion. He states it is different than his previous chest pain prior to stents. He clearly describes a pleuritic component to his chest pain and has been progressive and worsening since 2 days ago. Probably pericarditis. CRP was significantly elevated. Ibuprofen 400 mg p.o. b.i.d. x7 day. GI prophylaxis needed. Will start pantoprazole 40 mg daily while patient is on NSAIDs. -3/ C-Reactive Protein result is 18.4 For coding purposes, please clarify if pericarditis has been ruled in or ruled out or unable to determine
[2021-11-10] MEDS: PANTOPRAZOLE 40 MG TABLET PO (10:20)
[2021-11-10] MEDS: IBUPROFEN 400 MG TABLET PO (10:21)
--- NOTE | 2021-11-10 15:00 | PM.DS ---
DS: Admitting Diagnosis Discharge Date 11/10/21 Admitting Diagnosis Chest pain DS: Discharge Diagnosis Discharge Diagnosis (1) Paroxysmal atrial fibrillation: Code(s): I48.0 - Paroxysmal atrial fibrillation Status: Acute (2) Chest pain: Code(s): R07.9 - Chest pain, unspecified Status: Acute (3) CAD (coronary artery disease): Code(s): I25.10 - Atherosclerotic heart disease of [place] coronary artery without angina pectoris Status: Acute (4) Sleep apnea: Code(s): G47.30 - Sleep apnea, unspecified Status: Inactive (5) Pericarditis: Code(s): I31.9 - Disease of pericardium, unspecified Status: Acute DS: Summary Hospital Course Reason for hospitalization: 76yo male with CAD, AFib and ZENA here for chest pain. Hospital Course: Patient had atrial fibrillation with RVR on route to the ED. Patient converted to normal sinus rhythm prior to treatment. TSH was normal. Eliquis and Toprol-XL resumed. Cardiology was consult. Patient again developed AFib with RVR. He received multiple doses of metoprolol and Diltiazem IV once. Amiodarone once given and he converted to NSR. Suspected that he is having more episodes of AFib/RVR related to the pericarditis. Chest pain initially felt related to the AFib with RVR. However chest pain is more pleuritic in nature. EKG does show mild diffuse ST elevation and Echo showing small pericardial effusion so felt to be pericarditis. Troponins are negative x3. EKG otherwise showing no acute changes to suggest acute coronary syndrome. Toradol once with benefit. Patient is on Eliquis and Plavix. We started Ibuprofen for a short course with Protonix. Patient overall did well and will be discharged home on 11/10/21. Status at Discharge Cognitive/behavioral status at discharge: Stable Time Spent with Patient Time attestation: Total time spent providing and/or coordinating discharge services:35 minutes Time spent: Greater than 30 minutes Exam Narrative: AF 97.7 141/64 64 18 97% ra Gen - NARD Chest - CTA bilaterally, nml RR CV - RRR. S1-S2. Telemetry showing PVCs Abd - Soft, NT/ND, Positive BS Ext - no pedal edema Psych - Nml mood and affect Skin - Warm and dry. Small hematoma noted left lateral ankle and bruise on the left inner arm. Discharge Plan Discharge Attending physician on discharge: Jero Johnston Consulting providers: Wes Glasgow Discharging Clinician: Jero Johnston Anticipated Discharge Date/Time: 11/10/21 15:08 Patient Disposition: Home, Self-Care Activity: as tolerated Diet: heart healthy Discharge Instructions: Please avoid large gathering, wear face coverings in public and practice social distance. Contact your doctor or call 911 and come to the Emergency Room if you have abdominal pain, lightheadedness with standing or other worrisome symptoms. Follow-up with your primary doctor in 1-2 weeks. Please call for appointment. Follow-up with the [facility] [facility] in 3-4 weeks. Please call for an appointment. Patient Instructions: Antibiotic Form, Apixaban (By mouth) Stand Alone Forms: General Discharge Information Follow-up/Referrals: Wes Glasgow MD [Physician] - Call for Appointment Nolberto Humphrey DO [Primary Care Provider] - Call for Appointment Discharge Medications: New ibuprofen 400 mg Tablet 400 mg PO BID Qty: 13 RF: 0 pantoprazole 40 mg Tablet,Delayed Release (Dr/Ec) 40 mg PO QAM Qty: 30 RF: 0 Continued ropinirole 1 mg tablet 1 mg PO QHS Qty: 30 RF: 0 metoprolol succinate 50 mg Tablet Extended Release 24 Hr 50 mg PO QAM Qty: 30 RF: 0 clopidogrel 75 mg Tablet 75 mg PO QAM Qty: 30 RF: 0 rosuvastatin [Crestor] 10 mg Tablet 10 mg PO QAM Qty: 30 RF: 0 apixaban 5 mg Tablet 5 mg PO BID RF: 0 Date of admission: 11/09/21 13:52 Primary Care Provider: oNlberto Humphrey Admitting Provider: Alexandra Martinez
== END 2021-11-10 16:22 | disposition home or self-care (01) | DRG 316 ==
LOC: ANHED 16:14 → ANHIMU 19:53
PROVIDERS: Internal Medicine Cardiovascular Disease; Nurse Practitioner Adult Health; Admitting Provider Family Medicine; Emergency Provider Emergency Medicine; PCP Internal Medicine; Visit Provider Internal Medicine
DX: I31.9 Disease of pericardium, unspecified (principal); I48.0 Paroxysmal atrial fibrillation; Z20.822 Contact with and (suspected) exposure to COVID-19; Z87.891 Personal history of nicotine dependence; E78.5 Hyperlipidemia, unspecified; Z79.899 Other long term (current) drug therapy; Z82.49 Family history of ischemic heart disease and other diseases of the circulatory system; Z82.3 Family history of stroke; I25.10 Atherosclerotic heart disease of native coronary artery without angina pectoris; Z95.5 Presence of coronary angioplasty implant and graft; G47.33 Obstructive sleep apnea (adult) (pediatric); R07.89 Other chest pain; Z79.01 Long term (current) use of anticoagulants
CPT/HCPCS: 36415; 71046; 80053; 81001; 83690; 83735; 84436; 84443; 84484; 85025; 85380; 85610; 85652; 85730; 86140; 93005; 93306; 96374; 96375; 99285; A9270; C9803; G0378; J0282; J1885; U0003; U0005

== ENCOUNTER 2021-12-18 11:54 | Inpatient (IN) | payer OTHER, SELFPAY ==
--- NOTE | ~2021-12-18 | XR_ITS ---
EXAMINATION: XR chest 2V DATE: 12/18/2021 13:04 INDICATION: Chest pain and hypertension TECHNIQUE: PA and lateral views of the chest are obtained. COMPARISON: 11/07/2021 FINDINGS: The lungs are free of acute opacities. There is no pleural effusion or pneumothorax. The ca rdiomediastinal silhouette is normal. There is moderate thoracic spondylosis. Coronary artery stent i s noted. IMPRESSION: 1. No acute cardiopulmonary abnormality. Reviewed, dictated and finalized at location A.
--- NOTE | 2021-12-18 12:30 | ECG_ITS ---
Measurements Intervals [place] Rate: 69 P: 22 SD: 164 QRS: 15 QRSD: 100 T: 32 QT: 388 QTc: 416 Interpretive Statements SINUS RHYTHM COMPARED TO ECG 11/08/2021 18:43:31 SINUS RHYTHM REPLACES ATRIAL FIBRILLATION Electronically Signed On 12-18-2021 15:43:53 CDT by Efren Sawyer M.D.
[2021-12-18 12:31] VITALS: PULSE 76; RESP 16; TEMP 36.7; O2SAT 100
[2021-12-18 12:49] LABS: Basophils Percent Auto 0.4 % (0.2-1.2); Eosinophils Absolute Auto 0.1 K/mm3 (0-0.3); Eosinophils Percent Auto 1.2 % (0-4.4); Hemoglobin 12.4 g/dL (14.0-18.0); Immature Granulocyte Absolute 0.04 K/mm3 (0.00-0.031); Immature Granulocyte Percent A 0.5 % (0-0.5); Lymphocytes Absolute Auto 1.16 K/mm3 (0.9-3.2); Lymphocytes Percent Auto 15.8 % (18.3-44.2); Mean Corpuscular HGB Conc 31.8 g/dl (32-36); Mean Corpuscular Volume 94.2 fl (80-100); Monocytes Absolute Auto 0.6 K/mm3 (0.1-0.6); Monocytes Percent Auto 8.7 % (2.6-8.5); Neutrophils Absolute Auto 5.4 K/mm3 (1.3-6.7); Neutrophils Percent Auto 73.4 % (45.5-73.1); Platelet Count Result 255 k/mm3 (150-375); Red Blood Count 4.14 M/mm3 (4.6-6.20); Red Cell Distribution Width 12.2 % (11.5-14.5); White Blood Count 7.3 K/mm3 (4.5-10.0)
[2021-12-18 12:59] LABS: Alanine Aminotransferase 20 U/L (4-50); Albumin Level 4.1 g/dL (3.5-5.1); Alkaline Phosphatase 82 U/L (38-126); Anion Gap 7 mmol/L (8-16); Aspartate Amino Transferase 28 U/L (17-59); Bilirubin,Total 0.8 mg/dL (0.2-1.3); Blood Urea Nitrogen 10 mg/dL (9-20); Calcium 8.6 mg/dL (8.4-10.2); Carbon Dioxide 29 mmol/L (22-30); Chloride 103 mmol/L (98-107); Estimated CRCL calculation 77 ml/min; Estimated Glomerular Filt Rate > 60; Glucose 100 mg/dL (65-110); Lipase 79 U/L (23-300); Potassium 4.2 mmol/L (3.4-5.0); Sodium 139 mmol/L (137-145)
[2021-12-18 13:11] LABS: Troponin I < 0.012 ng/mL (0.000-0.034)
[2021-12-18 13:13] LABS: INR 1.2; Partial Thromboplastin Time 33.1 SECONDS (22.3-36.8); Prothrombin Time 14.3 Seconds (11.1-14.7)
[2021-12-18] MEDS: ASPIRIN 81 MG CHEWABLE TABLET 324 MG PO (15:37)
[2021-12-18 15:39] VITALS: BP 137/76; PULSE 75; RESP 20; TEMP 36.9; O2SAT 100
[2021-12-18 16:03] LABS: Troponin I < 0.012 ng/mL (0.000-0.034)
--- NOTE | 2021-12-18 16:08 | ED.RECABL ---
HPI - Recheck/Abnormal Lab/Rx General Chief Complaint: Recheck/Abnormal Lab/Rx Stated Complaint: htn Time Seen by Provider: 12/18/21 15:31 Source: patient, RN notes reviewed and old records reviewed Mode of arrival: ambulatory Limitations: no limitations History of Present Illness HPI narrative: This is a 76 year old male with history of hypertension, CAD s/p stents who presents for evaluation of elevated blood pressure at home. Patient states he had an outpatient ECHO performed last week, and [facility] called him today as follow up. They asked him to check his blood pressure, and he states systolic BP was 200s. It was recommended for him to come to ER due to abnormal ECHO with elevated blood pressure. When asked if he has chest pain, he reports left chest congestion that has been presents since July but it does not feel like heart attack. He was hospitalized last month for afib with chest pain. HE was diagnosed with pericardial effusion and pericarditis at that time. He reports worsening dyspnea since his discharge. He denies leg swelling or calf pain. He denies cough or fever. His echo from 12/11/21 showed small to moderated pericardial effusion . This is slightly larger than last months' echo. Related Data Home Medications Medication Instructions Recorded Confirmed apixaban 5 mg PO BID 08/07/21 11/07/21 Allergies Allergy/AdvReac Type Severity Reaction Status Date / Time No Known Allergies Allergy Verified 11/15/21 10:42 Review of Systems Review of Systems: All systems reviewed & are unremarkable except as noted in HPI and below PMFSH Past Medical History Medical History CAD (coronary artery disease) Cardiac arrhythmia Dyslipidemia Paroxysmal atrial fibrillation Sleep apnea SVT (supraventricular tachycardia) Surgical History Surgical History History of coronary artery stent placement Family History Family History Mother Heart disease Cerebrovascular accident Father Heart disease Sibling Heart disease Afib Social History Social History Smoking packs per day: 0.5 Smoking cigarettes per day: 10.0 Years smoked: 15 Smoking pack-years: 7.50 Smoking status: Former smoker Tobacco type: cigarettes Second hand tobacco smoke exposure: Yes (as a child) Smoking end date: 09/09/81 Alcohol intake: never Substance use: never Substance use type: does not use Spiritual care concerns: No Exam Const: General: no acute distress and alert Orientation/consciousness: patient oriented x3 HENMT: Head: normocephalic and atraumatic Face and sinus: normal facial exam and face symmetric Mouth: Yes Normal oral and palatal mucosa present, Yes lip normal, Yes tongue normal and Yes oropharynx normal Eyes: EOM: EOMs intact bilaterally Chest: Chest palpation & inspection: normal inspection of the chest Resp: Effort & Inspection: normal respiratory effort and no retractions Auscultation: clear to auscultation bilaterally Cardio: Rate: regular rate Rhythm: regular rhythm Heart sounds: no murmurs GI: GI Palp: Yes Soft to palpation, No Tenderness to palpation present (GI), No Guarding due to palpation present (GI) and No Rigid due to palpation Auscultation: normal bowel sounds Back/Spine/Pelvis: Back: no CVA tenderness Skin: General skin exam: normal color Neuro: General: patient oriented x3, moves all extremities and CN's II-XI intact bilaterally Psych: Mental Status: mental status grossly normal Affect: normal affect Course Reevaluation(s) Reevaluation #1: I spoke with Pam Wolf who accepts patient to hospitalist service on [facility]. Patient has also been made aware of admission. Date: 12/18/21 Time: 16:19 Consultations Consultation #1: I Discuss
[2021-12-18 17:12] LABS: CRP 1.2 mg/dL (<1.0)
--- NOTE | 2021-12-18 17:47 | PC.NURSE ---
report received from Anne-Marie MANDUJANO in ED, reviewed plan of care
[2021-12-18 17:56] VITALS: BP 150/95; PULSE 76; RESP 22; O2SAT 98
--- NOTE | 2021-12-18 17:56 | PC.NURSE ---
Pt refusing IV, discussed risk/benefit of emergent medications and IV use. Pt declines, pt states I will not be poked again, I've been poked enough. It wont take that long to start an IV if they need to in order to give me emergent meds. Tell them I refused, because that is what I am doing. ethnic studies professor made aware.
--- NOTE | 2021-12-18 18:00 | PM.IMHP ---
H&P: HPI History of Present Illness Date/Time: 12/18/21 18:00 Chief Complaint: Elevated blood pressure. Narrative: This is a pleasant 76-year-old gentleman with coronary artery disease, paroxysmal atrial fibrillation, and sleep apnea who presented to the emergency department via private vehicle from home for evaluation of elevated blood pressure. He is known to the hospitalist service with a recent admission on 11/07/2021 after presenting with chest pain, found to be in atrial fibrillation with rapid ventricular response. He was seen in consultation by [facility] cardiology group who felt that his chest pain was secondary to pericarditis given mild diffuse ST elevation on his EKG. Echocardiogram at that time showed a small pericardial effusion as well and he rule out for acute coronary syndrome by serial troponins. He was started on a short course of ibuprofen and was able to be discharged a few days thereafter. He has been doing okay at home however he admits that he has just not had the energy or stamina that he has to have since he had a stent placed last July. He monitors his vital signs at home and he notices that his heart rate jumps up into the 130s quite frequently, more so at nighttime, but he really does not have any significant symptoms with that. In any event, [facility] call him today to check on him following his hospitalization last month. They had him check his blood pressure with his wrist cuff and he reports a systolic blood pressure of 210 and the nurse instructed him to come to the ER after he admitted to intermittent vague tightness or congestion in the left anterior chest. His blood pressures have been stable since arrival to the hospital and his EKG and troponins have really been unremarkable. After discussions with [facility] cardiology, it was felt that he should be admitted overnight for observation. At the time my evaluation he has no significant complaints any specifically denies current chest pain, shortness breast, nausea, vomiting, and sweats. He has not had exertional chest pain or shortness of breath however he has not been very active recently due to lack of energy as detailed above. Review of Systems Review of Systems: Twelve systems were reviewed. No syncope or near syncope. No fever, chills, or sweats. No recent cold or flu symptoms. He denies orthopnea, paroxysmal nocturnal dyspnea, and lower extremity edema. He is compliant with his CPAP at nighttime however states he still sleeps poorly and is bothered more so by his restless leg syndrome. Except as documented, all other systems were reviewed and are negative. [facility] Past Medical History Medical History (Updated 12/19/21 @ 00:09 by Pam Wolf PA-C) Cardiac arrhythmia Coronary artery disease Dyslipidemia Hypertension Kidney stone Obstructive sleep apnea on CPAP Paroxysmal atrial fibrillation Pericarditis (11/2021) Restless leg syndrome Supraventricular tachycardia Transient ischemic attack (2013) Surgical History Surgical History (Updated 12/19/21 @ 00:07 by Pam Wolf PA-C) History of cataract extraction with lens replacement History of coronary artery stent placement (07/2021) Family History Family History Mother Heart disease Cerebrovascular accident Father Heart disease Sibling Heart disease Afib Social History Social History (Updated 12/19/21 @ 00:07 by Pam Wolf PA-C) Social History: Surrogate decision maker: Irasema Croft, spouse. Code status: Full code. Smoking packs per day: 0.5 Smoking cigarettes per day: 10.0 Years smoked: 15 Smoking pack-years: 7.50 Smoking status: Former smoker Tobacco type: cigarettes Second hand tobacco smoke exposure: Yes (as a child) Smoking end date: 09/09/81 Alcohol intake: current Substance use: never Substance use type: does not use Living arrangements: with family Occupation/Education: retired Sp
--- NOTE | 2021-12-18 18:17 | ADMGEN ---
This patient, Olaf Croft, was admitted to Medical Room 246-01. Patient/family oriented to hospital policies and general routines including ID bracelet, bed and alarms, visiting hours, pain management, procedures, bathroom and other care routines, personal items, smoking policy, room service/diet, and visiting hours. Information on how to activate the Rapid Response Team has been discussed. Patient/Family are encouraged to report perceived risks to care and to ask questions if they do not understand what they are told or what they should do.
[2021-12-18 18:20] VITALS: BP 145/93; PULSE 70; PULSE 88; RESP 14; TEMP 36.6; O2SAT 100
[2021-12-18 18:28] VITALS: BMI 30.2
[2021-12-18 18:57] LABS: Troponin I < 0.012 ng/mL (0.000-0.034)
[2021-12-18 20:00] VITALS: PULSE 74; PULSE 88; RESP 14; O2SAT 100
[2021-12-18 20:34] LABS: Glucose Point of Care 154 mg/dl (65-105)
[2021-12-18 21:28] VITALS: BP 127/69; PULSE 68; RESP 14; TEMP 36.7; O2SAT 99
[2021-12-19] VITALS (13 sets, daily range): BP systolic 116–128; BP diastolic 67–71; PULSE 67–148; RESP 14–19; TEMP 36.6–37.3; O2SAT 96–99
--- NOTE | 2021-12-19 | ECHO_ITS ---
Patient Info Name: Olaf Croft Age: 76 years : 1945 Gender: Male Ht: 72 in Wt: 225 lbs BSA: 2.30 m2 BP: 128 / 71 mmHg Heart Rhythm: Sinus Rhythm Technical Quality: Fair Exam Date: 12/19/2021 3:16 PM Exam Location: [facility] Patient Status: Inpatient Admit Date: 12/18/2021 Staff Ordering Physician: Colby Winters MD Sueding Machine Operator: Juno Klein, KRIS, RT Attending Provider: Milka Villanueva MD Referring Physician: Singh GARCIA; Exam Type: CA echo doppler color flow Study Info Indications - Pericardial effusion Complete two-dimensional, color flow and Doppler transthoracic echocardiogram is performed. Summary 1. Complete two-dimensional, color flow and Doppler transthoracic echocardiogram is performed. 2. Left ventricular chamber dimension is normal. 3. Left ventricular systolic function is normal, estimated at 60-65%. 4. There is mildly increased left ventricular wall thickness. 5. The left ventricular diastolic function is grade I diastolic dysfunction. 6. Left atrial chamber dimension is mildly enlarged. 7. There is mild tricuspid valve regurgitation. 8. The pericardium appears thickened pericardium. 9. There is small pericardial effusion. Left Ventricle Left ventricular chamber dimension is normal. Left ventricular systolic function is normal, estimated at 60-65%. There is mildly increased left ventricular wall thickness. The left ventricular diastolic function is grade I diastolic dysfunction. Right Ventricle Right ventricular chamber dimension is normal. Right ventricular systolic function is normal. Left Atria Left atrial chamber dimension is mildly enlarged. Right Atria Right atrial chamber dimension is normal. Atrial Septum Intact interatrial septum visualized by color flow imaging. Aortic Valve The aortic valve is trileaflet. There is mild aortic valve sclerosis. There is no aortic valve stenosis. There is trace aortic valve regurgitation. Pulmonic Valve The pulmonic valve is normal. There is no pulmonic valve stenosis. There is trace pulmonic regurgitation. Mitral Valve The mitral valve has normal leaflets. There is no mitral valve stenosis. There is trace mitral valve regurgitation. Tricuspid Valve The tricuspid valve leaflets are normal. There is no significant tricuspid valve stenosis. There is mild tricuspid valve regurgitation. No pulmonary hypertension, estimated pulmonary arterial systolic pressure is 32 mmHg. Pericardium/Pleural The pericardium appears thickened pericardium. There is small pericardial effusion. Inferior Vena Cava Normal inferior vena cava with <50% collapse upon inspiration consistent with elevated right atrial pressure, 10 mmHg. Aorta The aortic root size at the sinus of Valsalva is normal. Left Ventricular Outflow Tract Name Value Normal LVOT 2D LVOT Diameter 2.1 cm LVOT Doppler LVOT Peak Gradient 4 mmHg LVOT Mean Gradient 2 mmHg LVOT VTI 21 cm LVOT VTI/AV VTI Ratio 0.9
[2021-12-19] MEDS: rOPINIRole HCL 1 MG TABLET PO ×2 (00:40→20:52)
--- NOTE | 2021-12-19 04:59 | PC.NURSE ---
PT HR HAS BEEN UNSTABLE ON THE TELE MONITOR THROUGHOUT THE NIGHT. PT WILL RANDOMLY GO FROM THE 70S TO THE 150S EVEN WHILE LAYING IN BED. PT HR ALSO ELEVATES SIGNIFICANTLY ANYTIME HE IS UP OUT OF BED. AFTER THESE EPISODES I HAVE ASSESSED THE PT HE IS EITHER RESTING PEACEFULLY OR STATES HE DOES NOT FEEL ANYTHING OR FEELS FINE . PRINTED OUT MULTIPLE TELE STRIPS TO PLACE IN CHART TO SHOW PT UNSTABLE HR.
[2021-12-19 07:51] LABS: Glucose Point of Care 101 mg/dl (65-105)
[2021-12-19] MEDS: CLOPIDOGREL BISULFATE 75 MG TABLET PO (08:16)
[2021-12-19] MEDS: METOPROLOL SUCCINATE EXT REL 50 MG TABCR PO (08:16)
[2021-12-19] MEDS: ROSUVASTATIN 10 MG TABLET PO (08:16)
--- NOTE | 2021-12-19 13:05 | PM.IMPN ---
Progress Note: A&P Assessment and Plan (1) Chest pain: Qualifiers: Chest pain type: unspecified Qualified Code(s): R07.9 - Chest pain, unspecified Code(s): R07.9 - Chest pain, unspecified Status: Acute Assessment and Plan: Patient reports intermittent left anterior chest tightness or congestion which seems to have been ongoing since he was hospitalized at the beginning of November with pericarditis. It does not sound as though it has gotten particularly worse however given his history he is being admitted overnight for observation and Cardiology consultation. EKG did not demonstrate any acute EKG changes and his troponins have been negative thus far. 12/19/2021 Interval history: 76-year-old male was sent to emergency department with abnormal cardiac echo concerning for pericarditis and elevated blood pressure, is 3 sets of cardiac enzymes a negative, there are no significant changes on EKG, patient had a similar presentation patient recently and was told the patient has a pericarditis most likely viral as patient complains of being tired and fatigued and feels like under weather, he remains clinically stable is no complains of chest pain or shortness of breath currently, his blood pressure is trending down, patient will be seen by Cardiology and further recommendation to follow will continue to monitor have PT OT evaluate the patient. (2) Hypertension: Code(s): I10 - Essential (primary) hypertension Status: Acute Assessment and Plan: Systolic blood pressure at home was a little bit over 200 on his home wrist cuff. I am wondering if that was inaccurate as his blood pressures have been looking pretty good since arrival to the ER. For now will continue his antihypertensives and monitor closely. (3) Coronary artery disease involving [place] coronary artery of [place] heart: Code(s): I25.10 - Atherosclerotic heart disease of [place] coronary artery without angina pectoris Status: Acute Assessment and Plan: Continue anti-platelet, beta-julia, and statin. (4) Paroxysmal atrial fibrillation: Code(s): I48.0 - Paroxysmal atrial fibrillation Status: Acute Assessment and Plan: He is in a sinus rhythm at this time. Continue apixaban for stroke prophylaxis. (5) Obstructive sleep apnea on CPAP: Code(s): G47.33 - Obstructive sleep apnea (adult) (pediatric); Z99.89 - Dependence on other enabling machines and devices Status: Acute Assessment and Plan: CPAP will be provided for the patient to use while hospitalized. Subjective Date/time seen: 12/19/21 13:05 Chief Complaint: Elevated blood pressure. HPI Narrative: This is a pleasant 76-year-old gentleman with coronary artery disease, paroxysmal atrial fibrillation, and sleep apnea who presented to the emergency department via private vehicle from home for evaluation of elevated blood pressure. He is known to the hospitalist service with a recent admission on 11/07/2021 after presenting with chest pain, found to be in atrial fibrillation with rapid ventricular response. He was seen in consultation by [facility] cardiology group who felt that his chest pain was secondary to pericarditis given mild diffuse ST elevation on his EKG. Echocardiogram at that time showed a small pericardial effusion as well and he rule out for acute coronary syndrome by serial troponins. He was started on a short course of ibuprofen and was able to be discharged a few days thereafter. He has been doing okay at home however he admits that he has just not had the energy or stamina that he has to have since he had a stent placed last July. He monitors his vital signs at home and he notices that his heart rate jumps up into the 130s quite frequently, more so at nighttime, but he really does not have any significant symptoms with that. In any event, [facility] call him today to check on him following his hospitalization last month.
--- NOTE | 2021-12-19 14:05 | PM.CNCAR ---
Assessment and Plan Assessment and plan (1) CAD (coronary artery disease): Code(s): I25.10 - Atherosclerotic heart disease of [place] coronary artery without angina pectoris Status: Acute Assessment and Plan: On clopidogrel, rosuvastatin. Will DC metoprolol. Transition to diltiazem to see if his rhythm will settle down. (2) Pericardial effusion: Code(s): I31.3 - Pericardial effusion (noninflammatory) Status: Acute Assessment and Plan: Uncertain etiology but worsening effusion by echo last week in the office. Will repeat a 2D echocardiogram with Doppler here. Will start him on Indocin 25 mg p.o. t.i.d.. Check an NAVID panel (3) Obstructive sleep apnea on CPAP: Code(s): G47.33 - Obstructive sleep apnea (adult) (pediatric); Z99.89 - Dependence on other enabling machines and devices Status: Acute Assessment and Plan: Continue CPAP (4) Hypertension: Code(s): I10 - Essential (primary) hypertension Status: Acute Assessment and Plan: I think that is markedly elevated blood pressure was likely a false reading. Will utilize diltiazem for BP control and follow his blood pressure while in the hospital. Up titrate or add to his regimen as need be. (5) SVT (supraventricular tachycardia): Code(s): I47.1 - Supraventricular tachycardia Status: Acute Assessment and Plan: Frequent brief episodes of SVT noted. Will discontinue metoprolol because he feels very weak and tired. Will try short-acting diltiazem 30 mg p.o. t.i.d. and titrate to long-acting if able (6) Paroxysmal atrial fibrillation: Code(s): I48.0 - Paroxysmal atrial fibrillation Status: Acute Assessment and Plan: Will try diltiazem. (7) Chest pain: Qualifiers: Chest pain type: unspecified Qualified Code(s): R07.9 - Chest pain, unspecified Code(s): R07.9 - Chest pain, unspecified Status: Acute Assessment and Plan: Probably related to his effusion (8) Hyperlipidemia: Code(s): E78.5 - Hyperlipidemia, unspecified Status: Acute Assessment and Plan: Continue statin History of Present Illness History of Present Illness Consult date/time: 12/19/21 14:05 Requesting physician: Suri Prater MD Consult reason: chest pain and shortness of breath Reason For Visit: Pericardial Effusion, Dyspnea Narrative: Reason for consultation: Chest pain, shortness of breath, pericardial effusion Date of service 12/19/2021 Requesting provider: Dr. Prater History:Patient is a 76-year-old male patient of Dr. Sawyer was a history of CAD who had multivessel intervention performed that [facility]. 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 He also has a arrhythmias including SVT and atrial fibrillation. He is followed with electrophysiology at [facility] but cancel his ablation which was scheduled because he did not feel comfortable with the procedure due to a poor experience study had at the time of his PCI. He was admitted to this hospital last month it was treated for pericarditis. He was discharged home with ibuprofen and PPI. This did help his symptoms and his pain was gone after about 2 days. His states that his symptoms were better for a week and patient states that at present he has been having about a 1/10 constant ?congestion? in his chest. It is not positional in nature. He had a repeat echocardiogram in the office last week which showed a small to moderate size pericardial effusion. He has been having some worsening episodes of arrhythmia also including random spikes of elevated heart rate. Will become dizzy during these episodes. He will have several episodes daily which is heart rate will go fast and regular. He has been having some worsening dyspnea with exertion as well. He admits to paroxysmal nocturnal dyspnea. No swelling. He was called at home yesterday to see juliano
[2021-12-19] MEDS: INDOMETHACIN 25 MG CAPSULE PO (16:22)
[2021-12-19 16:25] LABS: Glucose Point of Care 93 mg/dl (65-105)
[2021-12-19 21:29] LABS: Glucose Point of Care 146 mg/dl (65-105)
[2021-12-20] VITALS (13 sets, daily range): BP systolic 113–140; BP diastolic 67–76; PULSE 38–76; RESP 14–20; TEMP 36.2–36.9; O2SAT 97–99
[2021-12-20] MEDS: dilTIAZem HCL 30 MG TABLET PO (05:40)
[2021-12-20 07:48] LABS: Glucose Point of Care 98 mg/dl (65-105)
[2021-12-20] MEDS: INDOMETHACIN 25 MG CAPSULE PO ×3 (08:38→17:05)
[2021-12-20] MEDS: ROSUVASTATIN 10 MG TABLET PO (08:38)
[2021-12-20] MEDS: CLOPIDOGREL BISULFATE 75 MG TABLET PO (08:38)
--- NOTE | 2021-12-20 09:08 | PM.PNCARD ---
Progress Note: A&P Additional Plan 76-year-old man with: Coronary artery disease status post complex PCI/stenting to the LAD doing well. Will continue his clopidogrel and resume low-dose aspirin 81 mg daily at this time. Systemic anticoagulation with apixaban has been stopped because he is having SVT/ not atrial fib and he does have a pericardial effusion. Seems to be tolerating a very small dose of diltiazem and in sinus rhythm this morning. I will transition this to long-acting diltiazem at this time. If he tolerates this well and has no further arrhythmias through the day today and overnight consider discharge tomorrow. Spoke to the patient about potential need for electrophysiology consultation for this depending on his response to medical therapy. Efren Sawyer MD [facility] Subjective Date/time seen: 12/20/21 09:08 Interval history: Follow-up visit in this 76-year-old man with: Coronary artery disease with complex PCI to the LAD several months ago. Procedure was complicated by pericarditis with small pericardial effusion. Patient also has SVT. Paroxysmal SVT noted on telemetry he also has PACs that trigger this some of which are nonconducted. Date of service 12/20/2021: Patient feels relatively well today no significant complaint of chest pain. Long discussion with the patient about his coronary disease as well as arrhythmias and management options at this time. Currently in sinus rhythm heart rate in the 70s. Started low dose of short-acting diltiazem yesterday. Exam Narrative: Awake alert and oriented appears stated age Const: General: comfortable and no acute distress HENMT: General nose exam: Normal nares present Eyes: Sclera: sclerae normal Neck: Neck: supple and no JVD Chest: Other: No chest wall pain to palpate Resp: Auscultation: clear to auscultation bilaterally Cardio: Rate: regular rate Rhythm: regular rhythm Heart sounds: no murmurs and no rubs GI: Auscultation: normal bowel sounds Skin: General skin exam: normal color Neuro: General: gait normal Cranial nerves: Yes Normal hearing present Cognition (Neuro): normal cognition Extrem: General: normal to inspection and no edema Psych: Mental Status: mental status grossly normal Objective Data Vital Signs Vital Signs: Vital Signs - 24 hr 12/19/21 12:00 12/19/21 15:30 12/19/21 16:00 Temperature 37.3 C Pulse Rate 79 71 67 Respiratory Rate 18 Blood Pressure 116/67 Pulse Oximetry 98 12/19/21 19:44 12/19/21 20:00 12/19/21 23:39 Temperature 36.6 C Pulse Rate 77 77 Respiratory Rate 16 Blood Pressure 125/70 Pulse Oximetry 99 97 12/20/21 00:00 12/20/21 01:36 12/20/21 01:49 Temperature 36.4 C Pulse Rate 67 38 L 61 Respiratory Rate 14 Blood Pressure 140/73 Pulse Oximetry 99 12/20/21 04:00 12/20/21 05:13 Temperature 36.4 C Pulse Rate 59 L 61 Respiratory Rate 14 Blood Pressure 131/76 Pulse Oximetry 99 Intake/Output Intake/Output: Intake & Output 12/17/21 12/18/21 12/19/21 12/20/21 23:59 23:59 23:59 23:59 Intake Total 250 1960 640 Output Total 400 Balance 250 1560 640 Meds/Results Medications: Active Medications Generic Name Dose Route Start Last Admin Trade Name Freq PRN Reason Stop Dose Admin Aspirin 81 mg 12/21/21 09:00 Aspirin 81 Mg Enteric Tablet PO QAM [facility] Clopidogrel Bisulfate 75 mg 12/19/21 09:00 12/20/21 08:38 Clopidogrel Bisulfate 75 Mg [facility]t [facility] Administration Diltiazem HCl 180 mg 12/20/21 09:10 Diltiazem Hcl Cd 180 Mg Cap.Er.24h PO QAM [facility] Indomethacin 25 mg 12/19/21 17:00 12/20/21 08:38 Indomethacin 25 Mg Capsule PO 25 mg TIDWM [facility] Administration Ondansetron HCl 4 mg 12/18/21 16:53 Ondansetron Inj 4 Mg/2 Ml Vial IV PUSH Q4H PRN Nausea Perflutren Lipid Microsphere 0 ml 12/19/21 14:14 Perflutren Lipid Microspheres 1.5 Ml Vial Diluted To 10 Ml Tota
--- NOTE | 2021-12-20 10:31 | PCCCNOTE ---
On 12/20/21, the student, [Anitha Vora ], provided care and completed [facility] documentation on this patient. I have reviewed the student's documentation and agree with the findings.
[2021-12-20] MEDS: dilTIAZem HCL CD 180 MG CAP.ER.24H PO (10:43)
[2021-12-20 11:18] LABS: Glucose Point of Care 103 mg/dl (65-105)
--- NOTE | 2021-12-20 15:08 | PM.IMPN ---
Progress Note: A&P Assessment and Plan (1) Chest pain: Qualifiers: Chest pain type: unspecified Qualified Code(s): R07.9 - Chest pain, unspecified Code(s): R07.9 - Chest pain, unspecified Status: Acute Assessment and Plan: Patient reports intermittent left anterior chest tightness or congestion which seems to have been ongoing since he was hospitalized at the beginning of November with pericarditis. It does not sound as though it has gotten particularly worse however given his history he is being admitted overnight for observation and Cardiology consultation. EKG did not demonstrate any acute EKG changes and his troponins have been negative thus far. 12/19/2021 Interval history: 76-year-old male was sent to emergency department with abnormal cardiac echo concerning for pericarditis and elevated blood pressure, is 3 sets of cardiac enzymes a negative, there are no significant changes on EKG, patient had a similar presentation patient recently and was told the patient has a pericarditis most likely viral as patient complains of being tired and fatigued and feels like under weather, he remains clinically stable is no complains of chest pain or shortness of breath currently, his blood pressure is trending down, patient will be seen by Cardiology and further recommendation to follow will continue to monitor have PT OT evaluate the patient. 12/20/2021 interval hisotry: today patient seen by Cardiology patient with history of complex PCI and stent does not suspect patient has his AFib rather SVT systematic anticoagulation was stopped, and patient does have pericardial effusion a small amount of diltiazem was added patient rate is controlled and patient is tolerating, states is feeling much better compared to when he arrived, denies any complaint of chest pain or shortness of breath palpitation with dizziness, will continue to monitor, will have a PT OT evaluate the patient and further recommendation to follow. (2) Hypertension: Code(s): I10 - Essential (primary) hypertension Status: Acute Assessment and Plan: Systolic blood pressure at home was a little bit over 200 on his home wrist cuff. I am wondering if that was inaccurate as his blood pressures have been looking pretty good since arrival to the ER. For now will continue his antihypertensives and monitor closely. (3) Coronary artery disease involving [place] coronary artery of [place] heart: Code(s): I25.10 - Atherosclerotic heart disease of [place] coronary artery without angina pectoris Status: Acute Assessment and Plan: Continue anti-platelet, beta-julia, and statin. (4) Paroxysmal atrial fibrillation: Code(s): I48.0 - Paroxysmal atrial fibrillation Status: Acute Assessment and Plan: He is in a sinus rhythm at this time. Continue apixaban for stroke prophylaxis. (5) Obstructive sleep apnea on CPAP: Code(s): G47.33 - Obstructive sleep apnea (adult) (pediatric); Z99.89 - Dependence on other enabling machines and devices Status: Acute Assessment and Plan: CPAP will be provided for the patient to use while hospitalized. Subjective Date/time seen: 12/20/21 15:08 12/19/2021 Interval history: 76-year-old male was sent to emergency department with abnormal cardiac echo concerning for pericarditis and elevated blood pressure, is 3 sets of cardiac enzymes a negative, there are no significant changes on EKG, patient had a similar presentation patient recently and was told the patient has a pericarditis most likely viral as patient complains of being tired and fatigued and feels like under weather, he remains clinically stable is no complains of chest pain or shortness of breath currently, his blood pressure is trending down, patient will be seen by Cardiology and further recommendation to follow will continue to monitor have PT OT evaluate the patient. 12/20/2021 interval [place]
[2021-12-20 16:30] LABS: Glucose Point of Care 107 mg/dl (65-105)
[2021-12-20 21:51] LABS: Glucose Point of Care 104 mg/dl (65-105)
[2021-12-21] VITALS (12 sets, daily range): BP systolic 121–141; BP diastolic 62–74; PULSE 60–76; RESP 16–20; TEMP 36.1–36.4; O2SAT 95–99
[2021-12-21] MEDS: rOPINIRole HCL 1 MG TABLET PO ×2 (00:06→20:48)
[2021-12-21 07:40] LABS: Glucose Point of Care 102 mg/dl (65-105)
[2021-12-21] MEDS: ROSUVASTATIN 10 MG TABLET PO (08:01)
[2021-12-21] MEDS: CLOPIDOGREL BISULFATE 75 MG TABLET PO (08:01)
[2021-12-21] MEDS: dilTIAZem HCL CD 180 MG CAP.ER.24H PO (08:01)
[2021-12-21] MEDS: ASPIRIN 81 MG ENTERIC TABLET PO (08:01)
[2021-12-21] MEDS: INDOMETHACIN 25 MG CAPSULE PO ×3 (08:01→17:05)
--- NOTE | 2021-12-21 08:22 | PM.PNCARD ---
Progress Note: A&P Assessment and Plan (1) CAD (coronary artery disease): Code(s): I25.10 - Atherosclerotic heart disease of [place] coronary artery without angina pectoris Status: Acute Assessment and Plan: On clopidogrel, rosuvastatin. (2) Pericardial effusion: Code(s): I31.3 - Pericardial effusion (noninflammatory) Status: Acute Assessment and Plan: Uncertain etiology but worsening effusion by echo last week in the office. Continue Indocin 25 mg p.o. t.i.d.. NAVID panel results pending (3) Obstructive sleep apnea on CPAP: Code(s): G47.33 - Obstructive sleep apnea (adult) (pediatric); Z99.89 - Dependence on other enabling machines and devices Status: Acute Assessment and Plan: Continue CPAP (4) Hypertension: Code(s): I10 - Essential (primary) hypertension Status: Acute Assessment and Plan: I think that is markedly elevated blood pressure was likely a false reading. Will utilize diltiazem for BP control and follow his blood pressure while in the hospital. Up titrate or add to his regimen as need be. (5) SVT (supraventricular tachycardia): Code(s): I47.1 - Supraventricular tachycardia Status: Acute Assessment and Plan: Frequent brief episodes of SVT noted. Transitioned to long acting diltiazem yesterday. Continues to have runs of SVT. Will increase his dose to 240mg daily starting tomorrow and give an additional 30mg short acting diltiazem today. (6) Paroxysmal atrial fibrillation: Code(s): I48.0 - Paroxysmal atrial fibrillation Status: Acute Assessment and Plan: Will try diltiazem. As above. (7) Chest pain: Qualifiers: Chest pain type: unspecified Qualified Code(s): R07.9 - Chest pain, unspecified Code(s): R07.9 - Chest pain, unspecified Status: Acute Assessment and Plan: Probably related to his effusion (8) Hyperlipidemia: Code(s): E78.5 - Hyperlipidemia, unspecified Status: Acute Assessment and Plan: Continue statin Additional Plan Subjective Date/time seen: 12/21/21 08:22 Interval history: Follow-up visit in this 76-year-old man with: Coronary artery disease with complex PCI to the LAD several months ago. Procedure was complicated by pericarditis with small pericardial effusion. Patient also has SVT. Paroxysmal SVT noted on telemetry he also has PACs that trigger this some of which are nonconducted. Date of service 12/20/2021: Patient feels relatively well today no significant complaint of chest pain. Long discussion with the patient about his coronary disease as well as arrhythmias and management options at this time. Currently in sinus rhythm heart rate in the 70s. Started low dose of short-acting diltiazem yesterday. Date of service 12/21/2021: Feels lousy today. States he has been feeling palpitations that he is unable to control with vagal maneuvers. He denies any shortness of breath or chest pain. No other complaints. Review of Systems Review of Systems: All systems reviewed & are unremarkable except as noted in HPI and below Constitutional: Constitutional: Denies excessive sweating, Denies headache(s) and Reports weakness Eyes: Eyes: Denies blurry vision ENT: Reports Normal hearing present, Denies headache(s) and Denies neck pain Cardiovascular: Cardiovascular: Reports chest pain, Reports lightheadedness, Reports palpitations and Reports dyspnea on exertion Respiratory: Respiratory: Reports dyspnea on exertion Gastrointestinal: Gastrointestinal: Denies abdominal pain Genitourinary: Genitourinary: Denies dysuria Musculoskeletal: Musculoskeletal: Denies neck pain Integumentary/Breasts: Skin/Breast: Denies dry skin Neurologic: Reports Normal hearing present, Denies behavioral changes, Denies headache(s) and Reports weakness Psychiatric: Psychiatric: Denies behavioral changes Endocrine: Endocrine: Denie
[2021-12-21 08:24] LABS: Hematocrit 40.5 % (42.0-52.0); Hemoglobin 13.3 g/dL (14.0-18.0); Mean Corpuscular HGB Conc 32.8 g/dl (32-36); Mean Corpuscular Hemoglobin 30.1 pg (26-34); Mean Corpuscular Volume 91.6 fl (80-100); Mean Platelet Volume 9.9 fl (7.4-10.4); Platelet Count Result 227 k/mm3 (150-375); Red Blood Count 4.42 M/mm3 (4.6-6.20); Red Cell Distribution Width 12.1 % (11.5-14.5); White Blood Count 6.5 K/mm3 (4.5-10.0)
[2021-12-21 08:34] LABS: Anion Gap 5 mmol/L (8-16); Blood Urea Nitrogen 15 mg/dL (9-20); Calcium 8.7 mg/dL (8.4-10.2); Carbon Dioxide 29 mmol/L (22-30); Chloride 103 mmol/L (98-107); Estimated CRCL calculation 68 ml/min; Estimated Glomerular Filt Rate > 60; Glucose 169 mg/dL (65-110); Potassium 4.1 mmol/L (3.4-5.0); Sodium 137 mmol/L (137-145)
[2021-12-21 11:50] LABS: Glucose Point of Care 85 mg/dl (65-105)
--- NOTE | 2021-12-21 14:06 | PM.IMPN ---
Progress Note: A&P Assessment and Plan (1) Chest pain: Qualifiers: Chest pain type: unspecified Qualified Code(s): R07.9 - Chest pain, unspecified Code(s): R07.9 - Chest pain, unspecified Status: Acute Assessment and Plan: Patient reports intermittent left anterior chest tightness or congestion which seems to have been ongoing since he was hospitalized at the beginning of November with pericarditis. It does not sound as though it has gotten particularly worse however given his history he is being admitted overnight for observation and Cardiology consultation. EKG did not demonstrate any acute EKG changes and his troponins have been negative thus far. 12/19/2021 Interval history: 76-year-old male was sent to emergency department with abnormal cardiac echo concerning for pericarditis and elevated blood pressure, is 3 sets of cardiac enzymes a negative, there are no significant changes on EKG, patient had a similar presentation patient recently and was told the patient has a pericarditis most likely viral as patient complains of being tired and fatigued and feels like under weather, he remains clinically stable is no complains of chest pain or shortness of breath currently, his blood pressure is trending down, patient will be seen by Cardiology and further recommendation to follow will continue to monitor have PT OT evaluate the patient. 12/20/2021 interval hisotry: today patient seen by Cardiology patient with history of complex PCI and stent does not suspect patient has his AFib rather SVT systematic anticoagulation was stopped, and patient does have pericardial effusion a small amount of diltiazem was added patient rate is controlled and patient is tolerating, states is feeling much better compared to when he arrived, denies any complaint of chest pain or shortness of breath palpitation with dizziness, will continue to monitor, will have a PT OT evaluate the patient and further recommendation to follow. 12/21/2021 interval hisotry: today patient seen by Cardiology patient with history of complex PCI and stent does not suspect patient has AFib rather SVT systematic anticoagulation was stopped, and patient does have pericardial effusion, patient was not able to tolerate metoprolol, and it was stopped, a small amount of diltiazem 30mg TID was added patient rate is controlled and patient is tolerating, states is feeling much better compared to when he arrived, denies any complaint of chest pain or shortness of breath palpitation with dizziness, however this morning patient had a caffeinated coffee he felt palpitation and anxiety which resolved after couple of hours, will continue to monitor, will have a PT OT evaluate the patient and further recommendation to follow. (2) Hypertension: Code(s): I10 - Essential (primary) hypertension Status: Acute Assessment and Plan: Systolic blood pressure at home was a little bit over 200 on his home wrist cuff. I am wondering if that was inaccurate as his blood pressures have been looking pretty good since arrival to the ER. For now will continue his antihypertensives and monitor closely. (3) Coronary artery disease involving [place] coronary artery of [place] heart: Code(s): I25.10 - Atherosclerotic heart disease of [place] coronary artery without angina pectoris Status: Acute Assessment and Plan: Continue anti-platelet, beta-julia, and statin. (4) Paroxysmal atrial fibrillation: Code(s): I48.0 - Paroxysmal atrial fibrillation Status: Acute Assessment and Plan: He is in a sinus rhythm at this time. Continue apixaban for stroke prophylaxis. (5) Obstructive sleep apnea on CPAP: Code(s): G47.33 - Obstructive sleep apnea (adult) (pediatric); Z99.89 - Dependence on other enabling machines and devices Status: Acute Assessment and Plan: CPAP will be provided for the patient to use while hospitalized.
[2021-12-21] MEDS: dilTIAZem HCL 30 MG TABLET PO (14:31)
[2021-12-21 16:12] LABS: Glucose Point of Care 118 mg/dl (65-105)
[2021-12-21 21:03] LABS: Glucose Point of Care 102 mg/dl (65-105)
[2021-12-22] VITALS: PULSE 76
[2021-12-22 03:21] VITALS: RESP 18; O2SAT 96
[2021-12-22 04:00] VITALS: PULSE 71
[2021-12-22 05:05] VITALS: RESP 18; O2SAT 97
[2021-12-22 06:00] VITALS: BP 122/68; PULSE 65; RESP 20; TEMP 36.2; O2SAT 99
[2021-12-22 06:17] LABS: Anion Gap 4 mmol/L (8-16); Blood Urea Nitrogen 15 mg/dL (9-20); Calcium 8.7 mg/dL (8.4-10.2); Carbon Dioxide 30 mmol/L (22-30); Chloride 105 mmol/L (98-107); Estimated CRCL calculation 68 ml/min; Estimated Glomerular Filt Rate > 60; Glucose 98 mg/dL (65-110); Potassium 4.5 mmol/L (3.4-5.0); Sodium 139 mmol/L (137-145)
[2021-12-22 07:34] LABS: Glucose Point of Care 91 mg/dl (65-105)
[2021-12-22 08:00] VITALS: PULSE 78
[2021-12-22] MEDS: ROSUVASTATIN 10 MG TABLET PO (08:05)
[2021-12-22] MEDS: INDOMETHACIN 25 MG CAPSULE PO ×2 (08:05→12:12)
[2021-12-22] MEDS: ASPIRIN 81 MG ENTERIC TABLET PO (08:05)
[2021-12-22] MEDS: CLOPIDOGREL BISULFATE 75 MG TABLET PO (08:06)
--- NOTE | 2021-12-22 10:52 | PM.PNCARD ---
Progress Note: A&P Assessment and Plan (1) CAD (coronary artery disease): Code(s): I25.10 - Atherosclerotic heart disease of [place] coronary artery without angina pectoris Status: Acute Assessment and Plan: On clopidogrel, rosuvastatin. (2) Pericardial effusion: Code(s): I31.3 - Pericardial effusion (noninflammatory) Status: Acute Assessment and Plan: Uncertain etiology but worsening effusion by echo last week in the office. Continue Indocin 25 mg p.o. t.i.d.. Will continue this for one week after discharge. NAVID panel results pending (3) Obstructive sleep apnea on CPAP: Code(s): G47.33 - Obstructive sleep apnea (adult) (pediatric); Z99.89 - Dependence on other enabling machines and devices Status: Acute Assessment and Plan: Continue CPAP (4) Hypertension: Code(s): I10 - Essential (primary) hypertension Status: Acute Assessment and Plan: I think that is markedly elevated blood pressure was likely a false reading. Will utilize diltiazem for BP control and follow his blood pressure while in the hospital. Up titrate or add to his regimen as need be. (5) SVT (supraventricular tachycardia): Code(s): I47.1 - Supraventricular tachycardia Status: Acute Assessment and Plan: Frequent brief episodes of SVT noted. Transitioned to long acting diltiazem. No examples of SVT on telemetry since yesterday morning. I did talk to him regarding EP referral and consultation - he is hesitant to the idea but understands that we may not be able to adequately control his arrhythmia with medications alone. Will discuss further with Dr. Sawyer at next OV. (6) Paroxysmal atrial fibrillation: Code(s): I48.0 - Paroxysmal atrial fibrillation Status: Acute Assessment and Plan: Will try diltiazem. As above. (7) Chest pain: Qualifiers: Chest pain type: unspecified Qualified Code(s): R07.9 - Chest pain, unspecified Code(s): R07.9 - Chest pain, unspecified Status: Acute Assessment and Plan: Probably related to his effusion (8) Hyperlipidemia: Code(s): E78.5 - Hyperlipidemia, unspecified Status: Acute Assessment and Plan: Continue statin Additional Plan OK for discharge home today from a cardiac perspective. Subjective Date/time seen: 12/22/21 10:52 Interval history: Follow-up visit in this 76-year-old man with: Coronary artery disease with complex PCI to the LAD several months ago. Procedure was complicated by pericarditis with small pericardial effusion. Patient also has SVT. Paroxysmal SVT noted on telemetry he also has PACs that trigger this some of which are nonconducted. Date of service 12/20/2021: Patient feels relatively well today no significant complaint of chest pain. Long discussion with the patient about his coronary disease as well as arrhythmias and management options at this time. Currently in sinus rhythm heart rate in the 70s. Started low dose of short-acting diltiazem yesterday. Date of service 12/21/2021: Feels lousy today. States he has been feeling palpitations that he is unable to control with vagal maneuvers. He denies any shortness of breath or chest pain. No other complaints. Date of service 12/22/2021: Feels better this morning. Has not had any more feelings of racing heartbeat since I saw him yesterday morning. He has not had any SVT on telemetry since yesterday morning. No chest pain, no shortness of breath. Review of Systems Review of Systems: All systems reviewed & are unremarkable except as noted in HPI and below Constitutional: Constitutional: Denies excessive sweating, Denies headache(s) and Reports weakness Eyes: Eyes: Denies blurry vision ENT: Reports Normal hearing present, Denies headache(s) and Denies neck pain Cardiovascular: Cardiovascular: Reports chest pain, Reports lightheadedness, Reports palpitations and Rep
[2021-12-22 11:29] LABS: Glucose Point of Care 113 mg/dl (65-105)
--- NOTE | 2021-12-22 12:31 | PM.DS ---
DS: Admitting Diagnosis Discharge Date 12/22/2021 Admitting Diagnosis Elevated blood pressure. DS: Discharge Diagnosis Discharge Diagnosis (1) Chest pain: Qualifiers: Chest pain type: unspecified Qualified Code(s): R07.9 - Chest pain, unspecified Code(s): R07.9 - Chest pain, unspecified Status: Acute Assessment and Plan: Patient reports intermittent left anterior chest tightness or congestion which seems to have been ongoing since he was hospitalized at the beginning of November with pericarditis. It does not sound as though it has gotten particularly worse however given his history he is being admitted overnight for observation and Cardiology consultation. EKG did not demonstrate any acute EKG changes and his troponins have been negative thus far. 12/19/2021 Interval history: 76-year-old male was sent to emergency department with abnormal cardiac echo concerning for pericarditis and elevated blood pressure, is 3 sets of cardiac enzymes a negative, there are no significant changes on EKG, patient had a similar presentation patient recently and was told the patient has a pericarditis most likely viral as patient complains of being tired and fatigued and feels like under weather, he remains clinically stable is no complains of chest pain or shortness of breath currently, his blood pressure is trending down, patient will be seen by Cardiology and further recommendation to follow will continue to monitor have PT OT evaluate the patient. 12/20/2021 interval hisotry: today patient seen by Cardiology patient with history of complex PCI and stent does not suspect patient has his AFib rather SVT systematic anticoagulation was stopped, and patient does have pericardial effusion a small amount of diltiazem was added patient rate is controlled and patient is tolerating, states is feeling much better compared to when he arrived, denies any complaint of chest pain or shortness of breath palpitation with dizziness, will continue to monitor, will have a PT OT evaluate the patient and further recommendation to follow. 12/21/2021 interval hisotry: today patient seen by Cardiology patient with history of complex PCI and stent does not suspect patient has AFib rather SVT systematic anticoagulation was stopped, and patient does have pericardial effusion, patient was not able to tolerate metoprolol, and it was stopped, a small amount of diltiazem 30mg TID was added patient rate is controlled and patient is tolerating, states is feeling much better compared to when he arrived, denies any complaint of chest pain or shortness of breath palpitation with dizziness, however this morning patient had a caffeinated coffee he felt palpitation and anxiety which resolved after couple of hours, will continue to monitor, will have a PT OT evaluate the patient and further recommendation to follow. (2) Hypertension: Code(s): I10 - Essential (primary) hypertension Status: Acute Assessment and Plan: Systolic blood pressure at home was a little bit over 200 on his home wrist cuff. I am wondering if that was inaccurate as his blood pressures have been looking pretty good since arrival to the ER. For now will continue his antihypertensives and monitor closely. (3) Coronary artery disease involving [place] coronary artery of [place] heart: Code(s): I25.10 - Atherosclerotic heart disease of [place] coronary artery without angina pectoris Status: Acute Assessment and Plan: Continue anti-platelet, beta-julia, and statin. (4) Paroxysmal atrial fibrillation: Code(s): I48.0 - Paroxysmal atrial fibrillation Status: Acute Assessment and Plan: He is in a sinus rhythm at this time. Continue apixaban for stroke prophylaxis. (5) Obstructive sleep apnea on CPAP: Code(s): G47.33 - Obstructive sleep apnea (adult) (pediatric); Z99.89 - Dependence on other enabling machines and devices St
--- NOTE | 2021-12-22 12:32 | PC.NURSE ---
On 12/22/21, the student, [Wei Amaya, Fernando Mckeon], provided care and completed [facility] hospital documentation on this patient. I have reviewed the student's documentation and agree with the findings.
== END 2021-12-22 13:15 | disposition home or self-care (01) | DRG 315 ==
LOC: ANHED 15:53 → ANH2MED 17:09
PROVIDERS: Emergency Medicine; Internal Medicine Cardiovascular Disease; Admitting Provider Family Medicine; Emergency Provider General Practice; PCP Internal Medicine; Visit Provider Family Medicine
DX: I31.3 Pericardial effusion (noninflammatory) (principal); I47.1 Supraventricular tachycardia; I25.10 Atherosclerotic heart disease of native coronary artery without angina pectoris; G47.33 Obstructive sleep apnea (adult) (pediatric); I48.0 Paroxysmal atrial fibrillation; E78.5 Hyperlipidemia, unspecified; G25.81 Restless legs syndrome; Z95.5 Presence of coronary angioplasty implant and graft; Z87.891 Personal history of nicotine dependence; Z86.73 Personal history of transient ischemic attack (TIA), and cerebral infarction without residual deficits; Z98.49 Cataract extraction status, unspecified eye; Z96.1 Presence of intraocular lens; E66.9 Obesity, unspecified; Z68.30 Body mass index [BMI] 30.0-30.9, adult
CPT/HCPCS: 36415; 71046; 80048; 80053; 82948; 83690; 83735; 84484; 85025; 85027; 85610; 85730; 86038; 86140; 93005; 93306; 99285; A9270; G0378

== ENCOUNTER 2022-01-01 10:34 | Emergency (ER) | payer OTHER, SELFPAY ==
[2022-01-01] VITALS (23 sets, daily range): BP systolic 132–179; BP diastolic 83–109; PULSE 60–85; RESP 13–31; TEMP 36.8–37.1; O2SAT 99–100
--- NOTE | ~2022-01-01 | XR_ITS ---
EXAMINATION: XR chest 2V DATE: 01/01/2022 11:21 INDICATION: Chest pain TECHNIQUE: PA and lateral views of the chest were obtained. COMPARISON: Chest radiograph dated 12/18/2021 FINDINGS: The lungs remain clear with no focal airspace opacities, pulmonary edema, pleural effusion or pneumot horax. The cardiomediastinal silhouette is normal. Coronary artery stenting. Moderate thoracic spondy losis. IMPRESSION: 1. No acute cardiopulmonary disease. Reviewed, dictated and finalized at location B.
--- NOTE | 2022-01-01 10:53 | ECG_ITS ---
Measurements Intervals [place] Rate: 74 P: 9 IA: 162 QRS: 10 QRSD: 104 T: 0 QT: 317 QTc: 352 Interpretive Statements SINUS RHYTHM NONSPECIFIC T-WAVE ABNORMALITY COMPARED TO ECG 12/18/2021 12:39:17 MILD T-WAVE FLATTENING IS NOTED Electronically Signed On 01-01-2022 16:26:43 CDT by Efren Sawyer M.D.
[2022-01-01 11:07] LABS: Basophils Percent Auto 0.6 % (0.2-1.2); Eosinophils Absolute Auto 0.1 K/mm3 (0-0.3); Eosinophils Percent Auto 1.9 % (0-4.4); Hematocrit 34.5 % (42.0-52.0); Hemoglobin 11.3 g/dL (14.0-18.0); Immature Granulocyte Absolute 0.03 K/mm3 (0.00-0.031); Immature Granulocyte Percent A 0.5 % (0-0.5); Lymphocytes Absolute Auto 0.96 K/mm3 (0.9-3.2); Lymphocytes Percent Auto 15.4 % (18.3-44.2); Mean Corpuscular HGB Conc 32.8 g/dl (32-36); Mean Corpuscular Hemoglobin 29.8 pg (26-34); Mean Platelet Volume 10.4 fl (7.4-10.4); Monocytes Absolute Auto 0.6 K/mm3 (0.1-0.6); Monocytes Percent Auto 10.1 % (2.6-8.5); Neutrophils Absolute Auto 4.4 K/mm3 (1.3-6.7); Neutrophils Percent Auto 71.5 % (45.5-73.1); Platelet Count Result 205 k/mm3 (150-375); Red Blood Count 3.79 M/mm3 (4.6-6.20); Red Cell Distribution Width 12.5 % (11.5-14.5); White Blood Count 6.2 K/mm3 (4.5-10.0)
[2022-01-01 11:15] LABS: Alanine Aminotransferase 33 U/L (4-50); Albumin Level 3.9 g/dL (3.5-5.1); Alkaline Phosphatase 109 U/L (38-126); Anion Gap 4 mmol/L (8-16); Aspartate Amino Transferase 36 U/L (17-59); Bilirubin,Total 0.5 mg/dL (0.2-1.3); Blood Urea Nitrogen 14 mg/dL (9-20); Calcium 8.6 mg/dL (8.4-10.2); Carbon Dioxide 30 mmol/L (22-30); Chloride 105 mmol/L (98-107); Estimated CRCL calculation 88 ml/min; Estimated Glomerular Filt Rate > 60; Glucose 94 mg/dL (65-110); Lipase 92 U/L (23-300); Potassium 4.2 mmol/L (3.4-5.0); Sodium 139 mmol/L (137-145)
[2022-01-01 11:21] LABS: INR 1.2; Prothrombin Time 14.4 Seconds (11.1-14.7)
[2022-01-01 11:22] LABS: Partial Thromboplastin Time 35.2 SECONDS (22.3-36.8)
[2022-01-01 11:26] LABS: Troponin I < 0.012 ng/mL (0.000-0.034)
--- NOTE | 2022-01-01 13:12 | PC.NURSE ---
Not in [facility]
--- NOTE | 2022-01-01 13:24 | ED.GENADULT ---
HPI - General Adult General Chief complaint: Recheck/Abnormal Lab/Rx Stated complaint: HTN Time Seen by Provider: 01/01/22 13:12 History of Present Illness HPI narrative: Patient is a 76-year-old male with a history of CAD status post stents ([facility]), hypertension, SVT presents to the emergency department for evaluation of elevated blood pressures and bilateral leg swelling for the past 5 days. Patient was recently hospitalized here from 12/18-12/22 for chest pain and shortness of breath in the setting of pericarditis and elevated blood pressures. Cardiology was consulted, an echo was obtained which showed thickened pericardium and pericardial effusion. He was ultimately discharged with diltiazem for blood pressure management once his pain improved. Patient was doing well until about 5 days ago when he noticed both of his legs swelled up with some paresthesias. Also reports issues with blood pressure control, states that his highest systolic was in the 240s. Patient did not take any of his medications today in attempt to see if this was a medication reaction, and actually notes improvement in his blood pressure. He spoke to his joint sealer office who recommended ED evaluation. He is having some chest tightness, but he states this has been chronic over the past 3 months, and it is no more than usual. Denies headache, visual changes, weakness, falls, slurred speech, ankle pain, trouble moving his legs, isabel numbness in his feet. Was previously on Metoprolol for BP control, this was stopped by cardiology due to fatigue (and switched to diltiazem). Related Data Allergies Allergy/AdvReac Type Severity Reaction Status Date / Time No Known Allergies Allergy Verified 12/28/21 13:22 Review of Systems Review of Systems: Gen: Denies fevers or chills Eyes: Denies eye pain or visual change ENT: Denies congestion Respiratory: Reports shortness of breath. Denies cough CV: Reports chest pain, chronic. Denies acute chest pain. Denies palpitations GI: Denies abdominal pain nausea, emesis or diarrhea : denies burning, urgency, frequency or hematuria Musculoskeletal: Reports leg swelling. Denies leg pain or redness. Denies back pain or muscle pain Neuro: Denies numbness, tingling, weakness or focal weakness Skin: Denies rash Except as documented, all other systems reviewed and negative All systems reviewed & are unremarkable except as noted in HPI and below PMFSH Past Medical History Medical History Cardiac arrhythmia Coronary artery disease Dyslipidemia Hypertension Kidney stone Obstructive sleep apnea on CPAP Paroxysmal atrial fibrillation Pericarditis (11/2021) Restless leg syndrome Supraventricular tachycardia Transient ischemic attack (2013) Surgical History Surgical History History of cataract extraction with lens replacement History of coronary artery stent placement (07/2021) Family History Family History Mother Heart disease Cerebrovascular accident Father Heart disease Sibling Heart disease Afib Social History Social History Social History: Surrogate decision maker: Irasema Lang, spouse. Code status: Full code. Smoking packs per day: 0.5 Smoking cigarettes per day: 10.0 Years smoked: 15 Smoking pack-years: 7.50 Smoking status: Former smoker Tobacco type: cigarettes Second hand tobacco smoke exposure: Yes (as a child) Smoking end date: 09/09/81 Alcohol intake: current Substance use: never Substance use type: does not use Spiritual care concerns: No Exam Narrative: APPEARANCE: Well appearing, no pain in distress, well-nourished. Head: normocephalic and atraumatic. EYES: PERRLA/EOMI, conjunctivae clear EARS: External ear normal in appearance
[2022-01-01 14:34] LABS: Troponin I < 0.012 ng/mL (0.000-0.034)
--- NOTE | 2022-01-01 14:38 | PC.NURSE ---
Called Lab at 14:00 to add BNP to order.
[2022-01-01 15:05] LABS: NT Pro B Type Natriuretic Pept 909 pg/mL (5-100)
--- NOTE | 2022-01-01 15:27 | ECG_ITS ---
Measurements Intervals [place] Rate: 79 P: 19 IA: 158 QRS: -3 QRSD: 89 T: -61 QT: 356 QTc: 409 Interpretive Statements SINUS RHYTHM WITH OCCASIONAL SUPRAVENTRICULAR PREMATURE COMPLEXES NONSPECIFIC ST & T-WAVE ABNORMALITY COMPARED TO ECG 01/01/2022 10:58:25 NO SIGNIFICANT CHANGES Electronically Signed On 01-03-2022 13:09:53 CDT by Nilda Ramirez M.D.
[2022-01-01] MEDS: ASPIRIN 81 MG CHEWABLE TABLET 324 MG PO (16:40)
[2022-01-01 17:33] LABS: Troponin I < 0.012 ng/mL (0.000-0.034)
== END 2022-01-01 18:22 | disposition home or self-care (01) ==
PROVIDERS: Emergency Medicine; Physician Assistant; Emergency Provider Emergency Medicine; PCP Internal Medicine
DX: M79.89 Other specified soft tissue disorders (principal); I10 Essential (primary) hypertension; I25.10 Atherosclerotic heart disease of native coronary artery without angina pectoris; E78.5 Hyperlipidemia, unspecified; G47.33 Obstructive sleep apnea (adult) (pediatric); I48.0 Paroxysmal atrial fibrillation; G25.81 Restless legs syndrome; Z95.5 Presence of coronary angioplasty implant and graft; Z86.73 Personal history of transient ischemic attack (TIA), and cerebral infarction without residual deficits; Z98.49 Cataract extraction status, unspecified eye; Z96.1 Presence of intraocular lens; Z87.442 Personal history of urinary calculi; Z87.891 Personal history of nicotine dependence; R06.02 Shortness of breath; I49.1 Atrial premature depolarization; R94.31 Abnormal electrocardiogram [ECG] [EKG]
CPT/HCPCS: 36415; 71046; 80053; 83690; 83880; 84484; 85025; 85610; 85730; 93005; 99284; A9270

== ENCOUNTER 2024-01-24 09:24 | Outpatient (CLI) | payer OTHER, SELFPAY ==
--- NOTE | ~2024-01-24 | XR_ITS ---
EXAMINATION: XR cervical spine 4-5V DATE: 01/24/2024 09:37 INDICATION: Neck pain. TECHNIQUE: 4 views of cervical spine including standing views were obtained. COMPARISON: None. FINDINGS: There is 4 degrees dextrocurvature of the cervicothoracic spine. Vertebral body heights are normal. There is mildly decreased disc height at C3-C4 and C4-C5, severely decreased disc height at C5-C6 and C6-C7, and moderately decreased disc height at C7-T1. There is multilevel facet joint osteo arthritis, severe at C7-T1. There is mild central canal stenosis at C3-C4, C5-C6, and C6-C7. No preve rtebral soft tissue swelling. IMPRESSION: 1. Severe cervical spondylosis. Reviewed, dictated and finalized at location E.
== END 2024-01-24 09:25 ==
PROVIDERS: PCP Family Medicine; Visit Provider Family Medicine
DX: M54.2 Cervicalgia (principal); M43.02 Spondylolysis, cervical region
CPT/HCPCS: 72050

== ENCOUNTER 2024-06-22 12:41 | Outpatient (CLI) | payer OTHER, SELFPAY ==
--- NOTE | ~2024-06-22 | MR_ITS ---
MRI of the cervical spine Clinical History: Cervicalgia Technique: Axial T2-weighted and gradient images, and sagittal T1-weighted, T2-weighted, and STIR krystyna ges were acquired. Findings: There is no fracture or subluxation of the cervical spine. Vertebral bodies maintain normal height and alignment. No bone marrow signal abnormality seen. At C2-C3, there is no disc bulge or herniation. No spinal canal stenosis, cord compression, or defini te neural foraminal narrowing. There is probable minimal left facet arthropathy. At C3-C4, there is mild degenerative disc narrowing and minimal disc osteophyte complex. There is franchesca ateral facet arthropathy, left worse than right. There is bilateral neural foraminal narrowing, left worse than right. No canal stenosis or cord compression. At C4-C5, there is disc osteophyte complex, most pronounced at the left foraminal region. There is se jaziel left neural foraminal narrowing. Probable minimal right neural foraminal narrowing. No canal shelton nosis or cord compression. At C5-C6, there is advanced degenerative disc narrowing. There is mild disc ossify complex, most pron ounced the right foraminal region, with associated significant right neural foraminal narrowing. Left neural foramen preserved. No canal stenosis or cord compression. At C6-C7, there is advanced degenerative disc narrowing. There is minimal disc osteophyte complex. Th ere is bilateral neural foraminal narrowing, right worse than left. No canal stenosis or cord ronaldo ambreen. No abnormal signal seen in the spinal cord. Paravertebral soft tissues are unremarkable. Impression: Moderate degenerative spondylosis, as above. Reviewed, dictated and finalized at [facility]. Impression: Moderate degenerative spondylosis, as above.
== END 2024-06-22 12:42 | disposition home or self-care (01) ==
LOC: ANHIMG 12:43
PROVIDERS: PCP Family Medicine; Visit Provider Family Medicine
DX: M47.892 Other spondylosis, cervical region (principal)
CPT/HCPCS: 72141

== ENCOUNTER 2024-08-22 10:44 | Inpatient (IN) | payer OTHER, SELFPAY ==
[2024-08-22] VITALS (24 sets, daily range): BP systolic 138–159; BP diastolic 68–143; PULSE 68–83; RESP 13–20; TEMP 36.4–36.8; O2SAT 95–100; BMI 33.3
--- NOTE | ~2024-08-22 | CT_ITS ---
EXAMINATION: CT brain wo con DATE: 08/22/2024 11:23 INDICATION: Fall TECHNIQUE: Computed tomography (CT) of the head was performed without intravenous contrast. Sagittal and coronal reconstructions were performed. The mA was adjusted according to patient size. Iterative reconstruction technique was employed. The dose-length product was 681.00 mGy-cm. COMPARISON: None FINDINGS: No fracture. No acute intracranial hemorrhage, acute infarction or abnormal extra axial fluid collect ion. There is mild scattered white matter hypoattenuation consistent with chronic small vessel ischem ic disease. Symmetric prominence of the sulci and ventricles consistent with mild age-appropriate dif fuse cerebral volume loss. Ventricles are normal and symmetric. No mass/mass effect. The orbits, para nasal sinuses and mastoid air cells are normal. IMPRESSION: 1. Normal aging brain. No fracture or acute intracranial process. Reviewed, dictated and finalized at location A. 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
--- NOTE | ~2024-08-22 | XR_ITS ---
EXAMINATION: XR chest 1V DATE: 08/22/2024 12:33 INDICATION: Trauma post fall with hip fracture TECHNIQUE: frontal view of the chest was obtained. COMPARISON: Chest radiograph dated 01/01/2022 FINDINGS: Minimal left basilar atelectasis. No other airspace opacities, pulmonary edema, pleural effusion or p neumothorax. The cardiomediastinal silhouette is normal. Coronary artery stenting. IMPRESSION: 1. Minimal left basilar atelectasis. Reviewed, dictated and finalized at location A. MENTATION SPEC
--- NOTE | ~2024-08-22 | XR_ITS ---
EXAMINATION: XR surgery orthopedic DATE: 08/24/2024 17:09 INDICATION: Intraoperative evaluation during left hip hemiarthroplasty. TECHNIQUE: Frontal view of the left hip was obtained. COMPARISON: None. FINDINGS: Interval resection of the previously fractured right femoral head and neck and placement of a bipolar type left hip hemiarthroplasty which appears in near anatomic alignment on the single image provided . Portions of the pelvis are obscured by a bolster. No fractures in the visualized bones. Expected so ft tissue gas at the operative bed. IMPRESSION: 1. Placement of a bipolar type left hip hemiarthroplasty which is in near-anatomic alignment. Reviewed, dictated and finalized at location A. 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 Placement of a bipolar type left hip hemiarthroplasty which is in near-anato rené alignment.
--- NOTE | ~2024-08-22 | CT_ITS ---
EXAMINATION: CT cervical spine wo con DATE: 08/22/2024 11:23 INDICATION: Fall TECHNIQUE: Computed tomography (CT) of the cervical spine was performed without intravenous contrast. Automated exposure control and iterative reconstruction technique were employed. The dose-length pro duct was 583.74 mGy-cm. COMPARISON: Cervical spine MR dated 06/22/2024 FINDINGS: Alignment is normal. Vertebral body heights are normal. No fracture. Severe disc height loss at C5-C6 and C6-C7. Moderate disc height loss at C3-C4 and C7-T1 and mild disc height loss at C4-C5. There po sterior disc osteophyte complexes resulting in mild central canal stenosis at C3-C4 through C6-C7. Mu ltilevel moderate to severe cervical uncovertebral osteoarthritis and moderate facet osteoarthritis. This contributes to moderate neural foraminal stenosis bilaterally at C3-C4, on the left at C4-C5 and on the right at C5-C6 and C6-C7. Mild neural from stenosis at the remaining cervical levels. Small a mount of atherosclerotic calcific location at the bilateral carotid bulbs. Cervical soft tissues are unremarkable. Mild dependent atelectasis in the visualized upper lungs. IMPRESSION: 1. Severe cervical spondylosis. No acute osseous abnormality. Reviewed, dictated and finalized at location A. ING MACHINE TENDER
--- NOTE | ~2024-08-22 | XR_ITS ---
EXAMINATION: XR hip LT 2V w AP pelvis DATE: 08/22/2024 12:33 INDICATION: Fall with left hip pain TECHNIQUE: Anteroposterior view of the pelvis and anteroposterior and cross-table lateral views of th e left hip were obtained. COMPARISON: None. FINDINGS: Transcervical fracture of the proximal left femur with 2.5 cm proximal displacement. No other fractur es identified. Mild bilateral hip and sacroiliac osteoarthritis. At least mild lower lumbar spondylos is. IMPRESSION: 1. 2.5 cm proximal to its placement of a transcervical fracture of the proximal left femur. Reviewed, dictated and finalized at location A. Y LEAD
--- NOTE | ~2024-08-22 | XR_ITS ---
EXAMINATION: XR knee LT 3V DATE: 08/22/2024 13:14 INDICATION: Left knee pain post fall TECHNIQUE: Anteroposterior, oblique and crosstable lateral views of the left knee were obtained COMPARISON: None. FINDINGS: Alignment is normal. No fracture. Joint spaces appear normal on nonweightbearing imaging. There are however tiny marginal ossified small 3 compartments consistent with at least minimal osteoarthritis. There is a sessile osteochondroma along the medial metaphyseal region of the distal left femur. Small enthesophyte at the proximal pole of the patella. No joint effusion/layering lipohemarthrosis. Soft tissues are unremarkable. IMPRESSION: 1. At least minimal tricompartmental osteoarthritis the left knee which could be underestimated on no nweightbearing imaging. No knee joint effusion or acute osseous abnormality Reviewed, dictated and finalized at location [facility] [employer] IMPRESSION: 1. At least minimal tricompartmental osteoarthritis the left knee which could b e underestimated on nonweightbearing imaging. No knee joint effusion or acute o sseous abnormality
[2024-08-22] MEDS: ONDANSETRON INJ 4 MG/2 ML VIAL IV PUSH (10:55)
[2024-08-22] MEDS: MORPHINE SULFATE (*CRX) 4 MG/ML INJ IV PUSH (10:55)
--- NOTE | 2024-08-22 10:58 | ECG_ITS ---
Test Date: 2024-08-22 11:06:10 Measurements Intervals [place] Rate: 66 P: -3 IL: 175 QRS: 2 QRSD: 104 T: 14 QT: 394 QTc: 416 Interpretive Statements SINUS RHYTHM No previous ECG available for comparison Electronically Signed On 08-22-2024 13:02:28 DIRECTOR OF RETENTION by Maria A Verde M.D.
[2024-08-22 11:10] LABS: Basophils Percent Auto 0.2 % (0.2-1.2); Eosinophils Percent Auto 0.2 % (0-4.4); Hematocrit 42.5 % (42.0-52.0); Immature Granulocyte Absolute 0.09 K/mm3 (0.00-0.031); Immature Granulocyte Percent A 1.1 % (0-0.5); Lymphocytes Absolute Auto 1.64 K/mm3 (0.9-3.2); Lymphocytes Percent Auto 19.2 % (18.3-44.2); Mean Corpuscular HGB Conc 32.9 g/dl (32-36); Mean Corpuscular Hemoglobin 30.8 pg (26-34); Mean Corpuscular Volume 93.6 fl (80-100); Mean Platelet Volume 10.7 fl (7.4-10.4); Monocytes Absolute Auto 0.6 K/mm3 (0.1-0.6); Monocytes Percent Auto 6.6 % (2.6-8.5); Neutrophils Absolute Auto 6.2 K/mm3 (1.3-6.7); Neutrophils Percent Auto 72.7 % (45.5-73.1); Platelet Count Result 196 k/mm3 (150-375); Red Blood Count 4.54 M/mm3 (4.6-6.20); Red Cell Distribution Width 12.7 % (11.5-14.5); White Blood Count 8.5 K/mm3 (4.5-10.0)
[2024-08-22 11:22] LABS: Alanine Aminotransferase 18 U/L (6-50); Albumin Level 4.4 g/dL (3.5-5.1); Alkaline Phosphatase 73 U/L (38-126); Anion Gap 9 mmol/L (4-12); Aspartate Amino Transferase 29 U/L (17-59); Blood Urea Nitrogen 14 mg/dL (9-20); Calcium 9.2 mg/dL (8.4-10.2); Carbon Dioxide 23 mmol/L (22-30); Chloride 105 mmol/L (98-107); Estimated CRCL calculation 70 ml/min; Estimated Glomerular Filt Rate > 60; Glucose 140 mg/dL (65-110); Potassium 4.2 mmol/L (3.4-5.0); Sodium 137 mmol/L (137-145)
[2024-08-22 11:23] LABS: INR 1.1
[2024-08-22 11:24] LABS: Partial Thromboplastin Time 28.5 Seconds (22.3-36.8)
[2024-08-22] MEDS: HYDROmorphone HCL INJ (*CRX) 1 MG/ML SYR IV PUSH ×3 (11:56→19:59)
--- NOTE | 2024-08-22 13:01 | ED_ITS ---
HPI - General Adult General Chief complaint: Fall Stated complaint: fall - hip pain Time Seen by Provider: 08/22/24 10:48 History of Present Illness HPI narrative: patient is 78-year-old gentleman who presents emergency department with chief complaint of left hip pain. The patient reports that he slipped on the pavement outside that was wet from the rain and landed on his left hip. The patient reports that he has pain with range of motion the patient reports that he is on aspirin Plavix Related Data Home Medications ?Medication ?Instructions ?Recorded ?Confirmed ?Last Taken ?Type aspirin 81 mg tablet,delayed 81 mg PO BID 08/22/24 08/22/24 Unknown History release Allergies Allergy/AdvReac Type Severity Reaction Status Date / Time No Known Allergies Allergy Verified 08/22/24 10:52 Review of Systems 2 Review of Systems: A 10 system review of systems was completed on the patient and is negative except for what is stated in the HPI. Nursing and ancillary documentation was reviewed. [facility] Past Medical History Medical History (Updated 08/22/24 @ 16:25 by Pedro Santiago MD) Hypertension Kidney stone Transient ischemic attack (2013) Restless leg syndrome Obstructive sleep apnea on CPAP Supraventricular tachycardia Coronary artery disease Pericarditis (11/2021) Dyslipidemia Paroxysmal atrial fibrillation poorly documented Surgical History Surgical History History of cataract extraction with lens replacement History of coronary artery stent placement (07/2021) Family History Family History Mother Heart disease Cerebrovascular accident Father Heart disease Sibling Heart disease Afib Social History Social History Social History: Surrogate decision maker: Irasema Croft, spouse. Code status: Full code. Smoking packs per day: 0.5 Smoking cigarettes per day: 10.0 Years smoked: 15 Smoking pack-years: 7.50 Smoking status: Never smoker Tobacco type: cigarettes Second hand tobacco smoke exposure: Yes (as a child) Smoking end date: 09/09/81 Alcohol intake: current Drinks per week: 1 Substance use: never Substance use type: does not use Do You Feel Safe in your Home?: Yes Lack of Transportation: No Lack of Food: Never True Current Housing: I Have Housing Concerned About Future Housing: No Difficulty Paying Gas/Electric Bills: No Difficulty Paying for Meds: No Currently Unemployed: No Education: High School Diploma/GED Difficulty w/ Childcare or Family Care: No Living arrangements: with family Occupation/Education: retired Spiritual care concerns: No Exam 2 Narrative: GENERAL: Well-appearing, well-nourished, and in no acute distress. HEAD: Normocephalic, atraumatic. EYES: PERRLA and EOMI. ENT: Nares clear, no rhinorrhea or epistaxis. Mucous membranes moist. NECK: Supple. CHEST: Clear to auscultation. No respiratory distress. HEART: Regular rate and rhythm. No murmur heard. Normal peripheral pulses. ABDOMEN: Soft, nontender, nondistended, normal active bowel sounds. EXTREMITIES: Normal range of motion in all extremities except for left lower extremity. There is pain with range of motion left hip. No edema. SKIN: Warm, dry, no rash. NEURO: No focal deficits. Alert and oriented x3. PSYCH: Normal mood and affect. Course Vital Signs Vital signs: Vital Signs Temperature 36.4 C 08/22/24 10:49 Pulse Rate 83 08/22/24 10:49 Respiratory Rate 16 08/22/24 10:49 Blood Pressure 151/108 H 08/22/24 10:49 Pulse Oximetry 100 08/22/24 10:49 Temperature 36.7 C 08/22/24 15:50 Pulse Rate 72 08/22/24 15:50 Respiratory Rate 20 08/22/24 15:50 Blood Pressure 142/71 H 08/22/24 15:50 Pulse Oximetry 99 08/22/24 15:50 Medical Decision Making [facility] Narrative Medical decision making narrative: differential diagnosis includes fracture, contusion plane film x-rays showed a left hip fracture CT head and CT C-spine showed no acute abnormality Vital Signs Vital Signs: Vital Signs Temperature 36.4 C 08/22/24 10:49 Pulse Rate 83 08/22/24 10:49 Respiratory Rate 16 08/22/24 10:49 Blood Pressure 151/108 H 08/22/24 10:49 Pulse Oximetry 100 08/22/24 10:49 Temperature 36.7 C 08/22/24 15:50 Pulse Rate 72 08/22/24 15:50 Respiratory Rate 20 08/22/24 15:50 Blood Pressure 142/71 H 08/22/24 15:50 Pulse Oximetry 99 08/22/24 15:50 Lab Data 08/22/24 11:01 08/22/24 11:01 Labs: Lab Results 08/22/24 Range/Units 11:01 WBC 8.5 (4.5-10.0) K/mm3 RBC 4.54 L (4.6-6.20) M/mm3 Hgb 14.0 (14.0-18.0) g/dL Hct 42.5 (42.0-52.0) % MCV 93.6 (80-100) fl MCH 30.8 (26-34) pg MCHC 32.9 (32-36) g/dl RDW 12.7 (11.5-14.5) % Plt Count 196 (150-375) k/mm3 MPV 10.7 H (7.4-10.4) fl Immature Gran % (Auto) 1.1 H (0-0.5) % Neut % (Auto) 72.7 (45.5-73.1) % Lymph % (Auto) 19.2 (18.3-44.2) % [place] % (Auto) 6.6 (2.6-8.5) % Eos % (Auto) 0.2 (0-4.4) % Baso % (Auto) 0.2 (0.2-1.2) % Lymph # (Auto) 1.64 (0.9-3.2) K/mm3 [place] # (Auto) 0.6 (0.1-0.6) K/mm3 Eos # (Auto) 0.0 (0-0.3) K/mm3 Baso # (Auto) 0.0 (0.0-0.1) K/mm3 Abs Immat Gran (auto) 0.09 H (0.00-0.031) K/mm3 Absolute Neuts (auto) 6.2 (1.3-6.7) K/mm3 Absolute Nucleated RBC 0.000 (0.0-0.012) K/mm3 Nucleated RBC % 0.0 (0.0-0.2) % PT 14.0 (11.1-14.7) Seconds INR 1.1 APTT 28.5 (22.3-36.8) Seconds Sodium 137 (137-145) mmol/L Potassium 4.2 (3.4-5.0) mmol/L Chloride 105 (98-107) mmol/L Carbon Dioxide 23 (22-30) mmol/L Anion Gap 9 (4-12) mmol/L BUN 14 (9-20) mg/dL Creatinine 1.00 (0.7-1.3) mg/dL Estim Creat Clear Calc 70 ml/min Estimated GFR > 60 (59 - ) Glucose 140 H (65-110) mg/dL Calcium 9.2 (8.4-10.2) mg/dL Total Bilirubin 1.0 (0.2-1.3) mg/dL AST 29 (17-59) U/L ALT 18 (6-50) U/L Alkaline Phosphatase 73 (38-126) U/L Total Protein 8.0 (6.3-8.2) g/dL Albumin 4.4 (3.5-5.1) g/dL Discharge Plan Discharge Clinical Impression: Closed fracture of left hip, Ground-level fall Patient Disposition: Still a Patient Condition: Stable Time of Disposition: 13:05
--- NOTE | 2024-08-22 13:05 | PC.NURSE ---
Pt states his pain is currently a 6/10. States he would not like anything for pain at this time. States he will let this RN know if/when he needs something for pain.
--- NOTE | 2024-08-22 13:28 | PC.NURSE ---
Pt states he had his morning meds at 0700 today.
--- NOTE | 2024-08-22 13:40 | P.HP_ITS ---
H&P: HPI History of Present Illness Date/Time: 08/22/24 14:15 Chief Complaint: Left hip after a fall. Narrative: This is a very pleasant 78-year-old male with coronary artery disease, hypertension, dyslipidemia, paroxysmal supraventricular tachycardia, and obstructive sleep apnea on CPAP presented to the emergency department via EMS for evaluation of left hip pain after fall. The patient provides the following history. He slipped on wet pavement outside and landed hard on his left hip. He has had significant pain in the left hip and to a lesser degree in his left knee since that time. There was no head trauma loss of consciousness in the fall. He denies syncope, near syncope, fever, recent cold and flu symptoms, chest pain, pleuritic pain, shortness of breath, nausea, vomiting, diarrhea, and dysuria. In the ED: He was afebrile on arrival with stable vital signs though blood pressures have been a bit elevated. CMP and CBC were pretty unremarkable. Radiograph showed a transcervical fracture of the left proximal femur and he is being admitted in this setting for pain control and orthopedic consultation. Review of Systems Review of Systems: 12 systems were reviewed and are negativ e except for as per HPI. [facility] Past Medical History Medical History (Updated 08/22/24 @ 19:40 by Pam Wolf PA-C) Hypertension Kidney stone Transient ischemic attack (2013) Restless leg syndrome Obstructive sleep apnea on CPAP Supraventricular tachycardia Coronary artery disease Pericarditis (11/2021) Dyslipidemia Surgical History Surgical History History of cataract extraction with lens replacement History of coronary artery stent placement (07/2021) Family History Family History Mother Heart disease Cerebrovascular accident Father Heart disease Sibling Heart disease Afib Social History Social History Social History: Surrogate decision maker: Irasema Croft, spouse. Code status: Full code. Smoking packs per day: 0.5 Smoking cigarettes per day: 10.0 Years smoked: 15 Smoking pack-years: 7.50 Smoking status: Never smoker Tobacco type: cigarettes Second hand tobacco smoke exposure: Yes (as a child) Smoking end date: 09/09/81 Alcohol intake: current Drinks per week: 1 Substance use: never Substance use type: does not use Do You Feel Safe in your Home?: Yes Lack of Transportation: No Lack of Food: Never True Current Housing: I Have Housing Concerned About Future Housing: No Difficulty Paying Gas/Electric Bills: No Difficulty Paying for Meds: No Currently Unemployed: No Education: High School Diploma/GED Difficulty w/ Childcare or Family Care: No Living arrangements: with family Occupation/Education: retired Spiritual care concerns: No Meds Home Medications and Allergies Home Medications ?Medication ?Instructions ?Recorded ?Confirmed ?Type clopidogrel 75 mg tablet 75 mg PO QAM #30 tabs 06/30/21 08/22/24 Rx rosuvastatin 10 mg tablet (Crestor) 10 mg PO QAM #30 tabs 06/30/21 08/22/24 Rx diltiazem HCl 240 mg 240 mg PO QAM #30 caps 12/22/21 08/22/24 Rx capsule,extended release 24 hr, controlled ropinirole 1 mg tablet See Rx Instructions .Route 05/18/24 08/22/24 Rx .COMPLEX #90 tabs aspirin 81 mg tablet,delayed 81 mg PO BID 08/22/24 08/22/24 History release Allergies Allergy/AdvReac Type Severity Reaction Status Date / Time No Known Allergies Allergy Verified 08/22/24 10:52 Vital Signs Vital Signs - 24 hr 08/22/24 10:49 08/22/24 11:00 08/22/24 11:01 Temperature 97.6 F Pulse Rate 83 72 Respiratory Rate 16 16 Blood Pressure 151/108 H 146/74 H Pulse Oximetry 100 100 99 Exam Narrative: General: Well-developed male in the semi-Sanchez position in bed in no distress. Weight: 111.4 kg BMI: 33.3. HEENT: PERRL, EOMI. Sclerae anicteric. Oral mucosa moist. Oropharynx clear. Neck: Supple. No JVD. Respiratory: Lungs are clear to auscultation bilaterally. Cardiovascular: Regular rate and rhythm with S1-S2. Occasional ectopy. Gastrointestinal: Abdomen is soft, nontender, and nondistended with positive bowel sounds. Skin: Warm and dry. No rash or lesions on limited exam. Extremities: No cyanosis, clubbing, or edema. Radial and pedal pulses intact. Musculoskeletal: He is tender to palpation over the left anterior lateral hip. No gross deformities of the knee or hip. Neurological: Alert. Cranial nerves 2-12 are grossly intact. No gross focal deficits to casual conversation. Psychiatric: Pleasant and cooperative with normal mood and affect. Judgment and insight intact. H&P: Results Labs Labs: Short CBC 08/22/24 Range/Units 11:01 WBC 8.5 (4.5-10.0) K/mm3 Hgb 14.0 (14.0-18.0) g/dL Hct 42.5 (42.0-52.0) % Plt Count 196 (150-375) k/mm3 BMP 08/22/24 11:01 Sodium 137 Potassium 4.2 Chloride 105 Carbon Dioxide 23 BUN 14 Creatinine 1.00 Glucose 140 H Calcium 9.2 Liver Function 08/22/24 Range/Units 11:01 Total Bilirubin 1.0 (0.2-1.3) mg/dL AST 29 (17-59) U/L ALT 18 (6-50) U/L Alkaline Phosphatase 73 (38-126) U/L Albumin 4.4 (3.5-5.1) g/dL Imaging Head CT 08/22/24 11:23 IMPRESSION: 1. Normal aging brain. No fracture or acute intracranial process. Cervical Spine CT 08/22/24 11:28 IMPRESSION: 1. Severe cervical spondylosis. No acute osseous abnormality. Hip/Pelvis X-Ray 08/22/24 12:37 IMPRESSION: 1. 2.5 cm proximal to its placement of a transcervical fracture of the proximal left femur. Chest X-Ray 08/22/24 12:41 IMPRESSION: 1. Minimal left basilar atelectasis. Knee X-Ray 08/22/24 13:21 IMPRESSION: 1. At least minimal tricompartmental osteoarthritis the left knee which could be underestimated on nonweightbearing imaging. No knee joint effusion or acute osseous abnormality Assessment and Plan Assessment and plan (1) Closed fracture of left hip: Code(s): S72.002A - Fracture of unspecified part of neck of left femur, initial encounter for closed fracture Status: Acute (2) Coronary artery disease: Code(s): I25.10 - Atherosclerotic heart disease of [place] coronary artery without angina pectoris Status: Acute (3) Hyperlipidemia: Code(s): E78.5 - Hyperlipidemia, unspecified Status: Acute (4) Hypertension: Code(s): I10 - Essential (primary) hypertension Status: Acute (5) Obstructive sleep apnea on CPAP: Code(s): G47.33 - Obstructive sleep apnea (adult) (pediatric); Z99.89 - Dependence on other enabling machines and devices Status: Acute Plan The patient presented to the emergency department for evaluation of left hip pain after a fall as detailed in the HPI. Labs, imaging, EKG, and all reports were personally reviewed. Dr. Santiago was consulted and his input is appreciated. Analgesics are available as needed. The patient is on dual antiplatelet therapy and he took aspirin and clopidogrel this morning. These will be held in anticipation of surgery, likely on Saturday. He gives no history to suggest that he would be at increased risk for adverse cardiac events. Check EKG, labs, and chest x-ray preoperatively. Blood pressures have been running a bit high, likely due to pain, and will be monitored. His home medications will be reviewed and resumed as appropriate. Findings and treatment plan were discussed with the patient. Questions were solicited and answered to satisfaction. The patient's medical management will be taken over by the hospitalist team in a.m. Quality VTE Prophylaxis VTE prophylaxis: mechanical ordered If No VTE Prophylaxis Answer both mechanical and pharmacologic: Reason no pharmacologic proph: medical contraindication (anticipate upcoming surgery) The patient has been admitted under observation status. Hospitalist [facility] Advance Care Plan I have confirmed that the patient's Advanced Care Plan is present, code status is documented, or surrogate decision maker is listed in patient medical record.: Yes Medication Reconciliation I have utilized all available resources to obtain, update and review the patients current medications (includes all prescriptions, OTC, herbals, cannabis, and nutritional supplements).: Yes
--- NOTE | 2024-08-22 16:14 | ADMGEN ---
This patient, Olaf Croft, was admitted to [facility] Surg Room 310-01. Patient/family oriented to hospital policies and general routines including ID bracelet, bed and alarms, visiting hours, pain management, procedures, bathroom and other care routines, personal items, smoking policy, room service/diet, and visiting hours. Information on how to activate the Rapid Response Team has been discussed. Patient/Family are encouraged to report perceived risks to care and to ask questions if they do not understand what they are told or what they should do.
--- NOTE | 2024-08-22 16:23 | PM.CNOR ---
Assessment and Plan Assessment and plan (1) Fracture of femoral neck, left: Code(s): S72.002A - Fracture of unspecified part of neck of left femur, initial encounter for closed fracture Status: Acute Assessment and Plan: Patient has femoral neck Fx of the LEFT hip. He was ambulatory and fell on wet pavement. He will need a bipolar replacement. On plavix now. Will need a day or two off plavix before surgery. History of Present Illness HPI Consult date: 08/22/24 Chief complaint: left hip fracture Narrative: 78 yo with cardiac disease and Left Femoral Neck Fx. Fell on wet pavement. Review of Systems Review of Systems: 12 systems were reviewed and are negative except for as per HPI. [facility] Past Medical History Medical History (Updated 08/22/24 @ 16:25 by Pedro Santiago MD) Hypertension Kidney stone Transient ischemic attack (2013) Restless leg syndrome Obstructive sleep apnea on CPAP Supraventricular tachycardia Coronary artery disease Pericarditis (11/2021) Dyslipidemia Paroxysmal atrial fibrillation poorly documented Surgical History Surgical History History of cataract extraction with lens replacement History of coronary artery stent placement (07/2021) Family History Family History Mother Heart disease Cerebrovascular accident Father Heart disease Sibling Heart disease Afib Social History Social History Social History: Surrogate decision maker: Irasema Croft, spouse. Code status: Full code. Smoking packs per day: 0.5 Smoking cigarettes per day: 10.0 Years smoked: 15 Smoking pack-years: 7.50 Smoking status: Former smoker Tobacco type: cigarettes Second hand tobacco smoke exposure: Yes (as a child) Smoking end date: 09/09/81 Alcohol intake: current Substance use: never Substance use type: does not use Lack of Transportation: No Lack of Food: Never True Current Housing: I Have Housing Concerned About Future Housing: No Difficulty Paying Gas/Electric Bills: No Difficulty Paying for Meds: No Currently Unemployed: No Education: High School Diploma/GED Difficulty w/ Childcare or Family Care: No Living arrangements: with family Occupation/Education: retired Spiritual care concerns: No Meds Home Medications and Allergies Home Medications ?Medication ?Instructions ?Recorded ?Confirmed ?Type clopidogrel 75 mg tablet 75 mg PO QAM #30 tabs 06/30/21 07/15/23 Rx rosuvastatin 10 mg tablet (Crestor) 10 mg PO QAM #30 tabs 06/30/21 07/15/23 Rx aspirin 81 mg tablet,delayed 81 mg PO QAM #30 tabs 12/22/21 07/15/23 Rx release diltiazem HCl 240 mg 240 mg PO QAM #30 caps 12/22/21 07/15/23 Rx capsule,extended release 24 hr, controlled ropinirole 1 mg tablet See Rx Instructions .Route 05/18/24 Rx .COMPLEX #90 tabs Allergies Allergy/AdvReac Type Severity Reaction Status Date / Time No Known Allergies Allergy Verified 08/22/24 10:52 Vital Signs Vital Signs - 24 hr 08/22/24 10:49 08/22/24 11:00 08/22/24 11:01 Temperature 97.6 F Pulse Rate 83 72 Respiratory Rate 16 16 Blood Pressure 151/108 H 146/74 H Pulse Oximetry 100 100 99 08/22/24 11:55 08/22/24 12:01 08/22/24 12:16 Temperature Pulse Rate 68 Respiratory Rate 16 Blood Pressure 154/85 H 141/73 H 138/85 Pulse Oximetry 100 100 100 08/22/24 12:31 08/22/24 12:46 08/22/24 13:01 Temperature Pulse Rate Respiratory Rate Blood Pressure 150/76 H 152/99 H 149/68 H Pulse Oximetry 100 100 100 08/22/24 13:16 08/22/24 13:31 08/22/24 13:46 Temperature Pulse Rate Respiratory Rate Blood Pressure 141/73 H 154/86 H 159/143 H Pulse Oximetry 100 96 08/22/24 14:00 08/22/24 14:01 08/22/24 14:15 Temperature Pulse Rate Respiratory Rate Blood Pressure 139/81 Pulse Oximetry 99 96 98 08/22/24 14:16 08/22/24 14:30 08/22/24 14:31 Temperature Pulse Rate Respiratory Rate Blood Pressure 140/68 145/68 H Pulse Oximetry 98 97 98 08/22/24 14:45 08/22/24 14:46 08/22/24 15:00 Temperature Pulse Rate Respiratory Rate Blood Pressure 147/69 H Pulse Oximetry 99 99 99 08/22/24 15:01 08/22/24 15:50 Temperature 98.0 F Pulse Rate 72 Respiratory Rate 20 Blood Pressure 156/84 H 142/71 H Pulse Oximetry 100 99 Exam Narrative: Pain with hip motion Wiggles toes NVI Results Labs 08/22/24 11:01 08/22/24 11:01 Labs: Abnormal lab results 08/22/24 Range/Units 11:01 RBC 4.54 L (4.6-6.20) M/mm3 MPV 10.7 H (7.4-10.4) fl Immature Gran % (Auto) 1.1 H (0-0.5) % Abs Immat Gran (auto) 0.09 H (0.00-0.031) K/mm3 Glucose 140 H (65-110) mg/dL H & H 08/22/24 Range/Units 11:01 Hgb 14.0 (14.0-18.0) g/dL Hct 42.5 (42.0-52.0) % Coagulation 08/22/24 Range/Units 11:01 INR 1.1 All other labs normal.
[2024-08-22] MEDS: rOPINIRole HCL 1 MG TABLET BY MOUTH (21:10)
[2024-08-23] MEDS: HYDROmorphone HCL INJ (*CRX) 1 MG/ML SYR IV PUSH ×6 (00:14→20:58)
[2024-08-23 06:00] VITALS: BP 142/76; PULSE 77; RESP 12; TEMP 36.9; O2SAT 97
[2024-08-23 06:16] LABS: Basophils Percent Auto 0.3 % (0.2-1.2); Eosinophils Percent Auto 0.4 % (0-4.4); Hematocrit 41.9 % (42.0-52.0); Hemoglobin 13.4 g/dL (14.0-18.0); Immature Granulocyte Absolute 0.09 K/mm3 (0.00-0.031); Immature Granulocyte Percent A 0.8 % (0-0.5); Lymphocytes Absolute Auto 0.66 K/mm3 (0.9-3.2); Mean Corpuscular Hemoglobin 30.3 pg (26-34); Mean Corpuscular Volume 94.8 fl (80-100); Mean Platelet Volume 10.8 fl (7.4-10.4); Monocytes Absolute Auto 0.6 K/mm3 (0.1-0.6); Monocytes Percent Auto 5.6 % (2.6-8.5); Neutrophils Absolute Auto 9.6 K/mm3 (1.3-6.7); Neutrophils Percent Auto 86.9 % (45.5-73.1); Platelet Count Result 177 k/mm3 (150-375); Red Blood Count 4.42 M/mm3 (4.6-6.20); Red Cell Distribution Width 12.9 % (11.5-14.5)
[2024-08-23 06:29] LABS: Anion Gap 4 mmol/L (4-12); Blood Urea Nitrogen 11 mg/dL (9-20); Calcium 8.7 mg/dL (8.4-10.2); Carbon Dioxide 29 mmol/L (22-30); Chloride 102 mmol/L (98-107); Estimated CRCL calculation 71 ml/min; Estimated Glomerular Filt Rate > 60; Glucose 114 mg/dL (65-110); Magnesium 1.9 mg/dL (1.6-2.3); Potassium 4.1 mmol/L (3.4-5.0); Sodium 135 mmol/L (137-145)
--- NOTE | 2024-08-23 06:41 | P.PNIM_ITS ---
Progress Note: A&P Assessment and Plan (1) Ground-level fall: Code(s): W18.30XA - Fall on same level, unspecified, initial encounter Status: Acute Assessment and Plan: Patient slipped on wet pavement outside and landed hard on his left hip. Denies head trauma loss of consciousness in the fall. Patient on dual antiplatelet therapy with ASA and plavix. - Head CT: No fracture or acute intracranial process - C spine: Severe cervical spondylosis. No acute osseous abnormality. - Chest XR: Minimal left basilar atelectasis. - Hip/pelvis XR: 2.5 cm proximal to its placement of a transcervical fracture of the proximal left femur. - Knee XR: At least minimal tricompartmental osteoarthritis the left knee. No knee joint effusion or acute osseous abnormality - PT/OT per ortho post op (2) Fracture of femoral neck, left: Code(s): S72.002A - Fracture of unspecified part of neck of left femur, initial encounter for closed fracture Status: Acute Assessment and Plan: Patient slipped on wet pavement outside and landed hard on his left hip. Denies head trauma loss of consciousness in the fall. Patient on dual antiplatelet therapy with ASA and plavix. - Hip/pelvis XR: 2.5 cm proximal to its placement of a transcervical fracture of the proximal left femur. - Knee XR: At least minimal tricompartmental osteoarthritis the left knee which could be underestimated on nonweightbearing imaging. No knee joint effusion or acute osseous abnormality - Analgesics - DVT ppx: SCD, currently holding asa and plavix in anticipation for surgery - PT/OT per ortho post op - Ortho consulted, appreciate recommendations He will need a bipolar replacement. Patient on plavix prior to admission, will need a day or two off plavix before surgery. (3) Coronary artery disease: Code(s): I25.10 - Atherosclerotic heart disease of [place] coronary artery without angina pectoris Status: Acute Assessment and Plan: Chronic, continue diltiazem and rosuvastatin. Currently holding asa and plavix in anticipation for surgery. Resume when appropriate. (4) Hyperlipidemia: Code(s): E78.5 - Hyperlipidemia, unspecified Status: Acute Assessment and Plan: Chronic, continue home medications - Rosuvastatin 10 mg daily (5) Hypertension: Code(s): I10 - Essential (primary) hypertension Status: Acute Assessment and Plan: Chronic, continue home medications - diltiazem 240 mg daily - monitor (6) Obstructive sleep apnea on CPAP: Code(s): G47.33 - Obstructive sleep apnea (adult) (pediatric); Z99.89 - Dependence on other enabling machines and devices Status: Acute Assessment and Plan: Continue CPAP use Time Spent With Patient Time with patient: 25 - 35 minutes Subjective Date/time seen: 08/23/24 06:41 Interval history: 78-year-old male with coronary artery disease, hypertension, dyslipidemia, paroxysmal supraventricular tachycardia, and obstructive sleep apnea on CPAP presented to the hospital via EMS for evaluation of left hip pain after fall. Patient is pleasant lying comfortably in bed. He states that his pain is well controlled on the current regimen. He denies tingling to the lower extremities but notes that he has chronic bilateral numbness to his feet that is unchanged since his arthroplasty. He is able to move his toes and pulses are strong. Patient has no other complaints denying chest pain, shortness of breath, palpitations, nausea/vomiting and abdominal pain. Review of Systems Review of Systems: All systems reviewed & are unremarkable except as noted in HPI and below Exam Narrative: AF HR 77 RR 12 SpO2 97 BP 142/76 General: male in no acute respiratory distress who is nontoxic appearing, lying semi recumbent in bed. HEENT: Normocephalic. Atraumatic.Extraocular movement intact. Sclera clear and anicteric. No facial asymmetry. Chest: Lungs are clear to auscultation bilaterally. No wheezes or crackles. CV: Heart was regular rate and rhythm. S1/S2. No murmurs, gallops, or rubs. Abd: Abdomen was soft. Nontender. Nondistended. Positive bowel sounds. No organomegaly or masses. Ext: No clubbing, cyanosis, or edema. 2+ DP pulses bilaterally. Able to move his toes. Slight shortening of the left leg. Neuro: Patient is alert and oriented x4. Speech is clear. Mild bilateral numbness to the feet (patient states this is chronic and unchanged). Objective Data Vital Signs Vital Signs: Vital Signs - 24 hr 08/22/24 10:49 08/22/24 11:00 08/22/24 11:01 Temperature 97.6 F Pulse Rate 83 72 Respiratory Rate 16 16 Blood Pressure 151/108 H 146/74 H Pulse Oximetry 100 100 99 Oxygen Delivery 08/22/24 11:55 08/22/24 12:01 08/22/24 12:16 Temperature Pulse Rate 68 Respiratory Rate 16 Blood Pressure 154/85 H 141/73 H 138/85 Pulse Oximetry 100 100 100 Oxygen Delivery 08/22/24 12:31 08/22/24 12:46 08/22/24 13:01 Temperature Pulse Rate Respiratory Rate Blood Pressure 150/76 H 152/99 H 149/68 H Pulse Oximetry 100 100 100 Oxygen Delivery 08/22/24 13:16 08/22/24 13:31 08/22/24 13:46 Temperature Pulse Rate Respiratory Rate Blood Pressure 141/73 H 154/86 H 159/143 H Pulse Oximetry 100 96 Oxygen Delivery 08/22/24 14:00 08/22/24 14:01 08/22/24 14:15 Temperature Pulse Rate Respiratory Rate Blood Pressure 139/81 Pulse Oximetry 99 96 98 Oxygen Delivery 08/22/24 14:16 08/22/24 14:30 08/22/24 14:31 Temperature Pulse Rate Respiratory Rate Blood Pressure 140/68 145/68 H Pulse Oximetry 98 97 98 Oxygen Delivery 08/22/24 14:45 08/22/24 14:46 08/22/24 15:00 Temperature Pulse Rate Respiratory Rate Blood Pressure 147/69 H Pulse Oximetry 99 99 99 Oxygen Delivery 08/22/24 15:01 08/22/24 15:50 08/22/24 20:00 Temperature 98.0 F Pulse Rate 72 Respiratory Rate 20 Blood Pressure 156/84 H 142/71 H Pulse Oximetry 100 99 Oxygen Delivery Room Air 08/22/24 21:47 08/23/24 06:00 Temperature 98.2 F 98.5 F Pulse Rate 75 77 Respiratory Rate 13 12 Blood Pressure 143/80 H 142/76 H Pulse Oximetry 95 97 Oxygen Delivery Intake/Output Intake/Output: Intake & Output 08/20/24 08/21/24 08/22/24 08/23/24 23:59 23:59 23:59 23:59 Intake Total 290 1000 Output Total 900 Balance 290 100 Meds/Results Medications: Active Medications Generic Name Dose Route Start Last Admin Trade Name Freq PRN Reason Stop Dose Admin Acetaminophen 650 mg 08/22/24 13:08 Acetaminophen 325 Mg Tablet PO Q4H PRN Mild Pain (1-3) or Fever Hydrocodone Bitart/Acetaminophen 1 tab 08/22/24 13:48 Hydrocodone/Acetaminophen (*Crx) 5-325 Mg Tablet PO Q6H PRN Pain Rated 4-6 Diltiazem HCl 240 mg 08/23/24 09:00 Diltiazem Hcl Cd 240 Mg Cap.24hr PO QAM [facility] Hydromorphone HCl 1 mg 08/22/24 19:44 08/23/24 05:54 Hydromorphone Hcl Inj (*Crx) 1 Mg/Ml Syr IV PUSH 1 mg Q3H PRN Administration Pain Rated 7-10 Ondansetron HCl 4 mg 08/22/24 13:08 Ondansetron Inj 4 Mg/2 Ml Vial IV PUSH Q4H PRN Nausea Ropinirole HCl 1 mg 08/22/24 21:00 08/22/24 21:10 Ropinirole Hcl 1 Mg Tablet BY MOUTH 1 mg HS JAY Administration Rosuvastatin Calcium 10 mg 08/23/24 09:00 Rosuvastatin 10 Mg [facility] [place] Results: ITS Impressions Head CT 08/22/24 11:23 IMPRESSION: 1. Normal aging brain. No fracture or acute intracranial process. Cervical Spine CT 08/22/24 11:28 IMPRESSION: 1. Severe cervical spondylosis. No acute osseous abnormality. Hip/Pelvis X-Ray 08/22/24 12:37 IMPRESSION: 1. 2.5 cm proximal to its placement of a transcervical fracture of the proximal left femur. Chest X-Ray 08/22/24 12:41 IMPRESSION: 1. Minimal left basilar atelectasis. Knee X-Ray 08/22/24 13:21 IMPRESSION: 1. At least minimal tricompartmental osteoarthritis the left knee which could be underestimated on nonweightbearing imaging. No knee joint effusion or acute osseous abnormality Labs Labs: Laboratory Results - last 24 hr 08/22/24 08/23/24 11:01 05:44 WBC 8.5 11.0 H RBC 4.54 L 4.42 L Hgb 14.0 13.4 L Hct 42.5 41.9 L MCV 93.6 94.8 MCH 30.8 30.3 MCHC 32.9 32.0 RDW 12.7 12.9 Plt Count 196 177 MPV 10.7 H 10.8 H Immature Gran % (Auto) 1.1 H 0.8 H Neut % (Auto) 72.7 86.9 H Lymph % (Auto) 19.2 6.0 L [place] % (Auto) 6.6 5.6 Eos % (Auto) 0.2 0.4 Baso % (Auto) 0.2 0.3 Lymph # (Auto) 1.64 0.66 L [place] # (Auto) 0.6 0.6 Eos # (Auto) 0.0 0.0 Baso # (Auto) 0.0 0.0 Abs Immat Gran (auto) 0.09 H 0.09 H Absolute Neuts (auto) 6.2 9.6 H Absolute Nucleated RBC 0.000 0.000 Nucleated RBC % 0.0 0.0 PT 14.0 INR 1.1 APTT 28.5 Sodium 137 135 L Potassium 4.2 4.1 Chloride 105 102 Carbon Dioxide 23 29 Anion Gap 9 4 BUN 14 11 Creatinine 1.00 1.00 Estim Creat Clear Calc 70 71 Estimated GFR > 60 > 60 Glucose 140 H 114 H Calcium 9.2 8.7 Magnesium 1.9 Total Bilirubin 1.0 AST 29 ALT 18 Alkaline Phosphatase 73 Total Protein 8.0 Albumin 4.4 Quality VTE Prophylaxis VTE prophylaxis: mechanical ordered
[2024-08-23 08:30] VITALS: O2SAT 94
[2024-08-23 08:35] VITALS: BP 150/76; PULSE 97; O2SAT 98
[2024-08-23] MEDS: dilTIAZem HCL CD 240 MG CAP.24HR PO (08:37)
[2024-08-23] MEDS: ROSUVASTATIN 10 MG TABLET PO (08:37)
[2024-08-23] MEDS: HYDROcodone/acetaminophen (*CRX) 5-325 MG TABLET 1 TAB PO ×2 (09:32→19:59)
[2024-08-23 14:00] VITALS: BP 145/85; PULSE 86; RESP 18; TEMP 36.8; O2SAT 94
[2024-08-23] MEDS: ONDANSETRON INJ 4 MG/2 ML VIAL IV PUSH (17:11)
[2024-08-23] MEDS: rOPINIRole HCL 1 MG TABLET BY MOUTH (19:59)
[2024-08-23 21:12] VITALS: BP 143/73; PULSE 97; RESP 16; TEMP 37.6; O2SAT 92
[2024-08-23 23:20] VITALS: RESP 18
[2024-08-24] VITALS (13 sets, daily range): BP systolic 121–163; BP diastolic 66–83; PULSE 76–96; RESP 10–22; TEMP 36.1–37.5; O2SAT 90–100
[2024-08-24] MEDS: HYDROmorphone HCL INJ (*CRX) 1 MG/ML SYR IV PUSH ×3 (06:40→20:29)
--- NOTE | 2024-08-24 08:36 | PM.IMPN ---
Progress Note: A&P Assessment and Plan (1) Ground-level fall: Code(s): W18.30XA - Fall on same level, unspecified, initial encounter Status: Acute Assessment and Plan: Patient slipped on wet pavement outside and landed hard on his left hip. Denies head trauma loss of consciousness in the fall. Patient on dual antiplatelet therapy with ASA and plavix. - Head CT: No fracture or acute intracranial process - C spine: Severe cervical spondylosis. No acute osseous abnormality. - Chest XR: Minimal left basilar atelectasis. - Hip/pelvis XR: 2.5 cm proximal to its placement of a transcervical fracture of the proximal left femur. - Knee XR: At least minimal tricompartmental osteoarthritis the left knee. No knee joint effusion or acute osseous abnormality - PT/OT per ortho post op (2) Fracture of femoral neck, left: Code(s): S72.002A - Fracture of unspecified part of neck of left femur, initial encounter for closed fracture Status: Acute Assessment and Plan: Patient slipped on wet pavement outside and landed hard on his left hip. Denies head trauma loss of consciousness in the fall. Patient on dual antiplatelet therapy with ASA and plavix. - Hip/pelvis XR: 2.5 cm proximal to its placement of a transcervical fracture of the proximal left femur. - Knee XR: At least minimal tricompartmental osteoarthritis the left knee which could be underestimated on nonweightbearing imaging. No knee joint effusion or acute osseous abnormality - Analgesics - DVT ppx: SCD, currently holding asa and plavix in anticipation for surgery - PT/OT per ortho post op - Ortho consulted, appreciate recommendations He will need a bipolar replacement. Patient on plavix prior to admission, will need a day or two off plavix before surgery. (3) Coronary artery disease: Code(s): I25.10 - Atherosclerotic heart disease of [place] coronary artery without angina pectoris Status: Acute Assessment and Plan: Chronic, continue diltiazem and rosuvastatin. Currently holding asa and plavix in anticipation for surgery. Resume when appropriate. (4) Hyperlipidemia: Code(s): E78.5 - Hyperlipidemia, unspecified Status: Acute Assessment and Plan: Chronic, continue home medications - Rosuvastatin 10 mg daily (5) Hypertension: Code(s): I10 - Essential (primary) hypertension Status: Acute Assessment and Plan: Chronic, continue home medications - diltiazem 240 mg daily - monitor (6) Obstructive sleep apnea on CPAP: Code(s): G47.33 - Obstructive sleep apnea (adult) (pediatric); Z99.89 - Dependence on other enabling machines and devices Status: Acute Assessment and Plan: Continue CPAP use Time Spent With Patient Time with patient: 25 - 35 minutes Subjective Date/time seen: 08/24/24 08:36 Interval history: 78-year-old male with coronary artery disease, hypertension, dyslipidemia, paroxysmal supraventricular tachycardia, and obstructive sleep apnea on CPAP presented to the hospital via EMS for evaluation of left hip pain after fall. Patient is pleasant lying comfortably in bed with at bedside. He states that he is doing well, denying chest pain, shortness of breath, nausea/vomiting and abdominal pain. Pain is well controlled. Plan for surgery today with Dr. Santiago. Review of Systems Review of Systems: All systems reviewed & are unremarkable except as noted in HPI and below Exam Narrative: AF HR 76 RR 18 SpO2 96 BP 139/77 General: male in no acute respiratory distress who is nontoxic appearing, lying semi recumbent in bed. HEENT: Normocephalic. Atraumatic.Extraocular movement intact. Sclera clear and anicteric. No facial asymmetry. Chest: Lungs are clear to auscultation bilaterally. No wheezes or crackles. CV: Heart was regular rate and rhythm. S1/S2. No murmurs, gallops, or rubs. Abd: Abdomen was soft. Nontender. Nondistended. Positive bowel sounds. No organomegaly or masses. Ext: No clubbing, cyanosis, or edema. 2+ DP pulses bilaterally. Able to move his toes. Slight shortening of the left leg. Neuro: Patient is alert. Speech is clear. Mild bilateral numbness to the feet (patient states this is chronic and unchanged). Objective Data Vital Signs Vital Signs: Vital Signs - 24 hr 08/23/24 14:00 08/23/24 20:00 08/23/24 21:12 Temperature 98.2 F 99.7 F H Pulse Rate 86 97 Respiratory Rate 18 16 Blood Pressure 145/85 H 143/73 H Pulse Oximetry 94 92 Oxygen Delivery Room Air 08/23/24 23:20 08/24/24 03:08 08/24/24 05:54 Temperature 97.7 F Pulse Rate 96 76 Respiratory Rate 18 17 18 Blood Pressure 139/77 Pulse Oximetry 96 Oxygen Delivery CPAP CPAP Intake/Output Intake/Output: Intake & Output 08/21/24 08/22/24 08/23/24 08/24/24 23:59 23:59 23:59 23:59 Intake Total 290 1480 300 Output Total 1800 400 Balance 290 -320 -100 Meds/Results Medications: Active Medications Generic Name Dose Route Start Last Admin Trade Name Freq PRN Reason Stop Dose Admin Acetaminophen 650 mg 08/22/24 13:08 Acetaminophen 325 Mg Tablet PO Q4H PRN Mild Pain (1-3) or Fever Hydrocodone Bitart/Acetaminophen 1 tab 08/23/24 11:45 08/23/24 19:59 Hydrocodone/Acetaminophen (*Crx) 5-325 Mg Tablet PO 1 tab Q4H PRN Administration Pain Rated 4-6 Diltiazem HCl 240 mg 08/23/24 09:00 08/23/24 08:37 Diltiazem Hcl Cd 240 Mg Cap.24hr PO 240 mg QAM JAY Administration Hydromorphone HCl 1 mg 08/22/24 19:44 08/24/24 06:40 Hydromorphone Hcl Inj (*Crx) 1 Mg/Ml Syr IV PUSH 1 mg Q3H PRN Administration Pain Rated 7-10 Ondansetron HCl 4 mg 08/22/24 13:08 08/23/24 17:11 Ondansetron Inj 4 Mg/2 Ml Vial IV PUSH 4 mg Q4H PRN Administration Nausea Ropinirole HCl 1 mg 08/22/24 21:00 08/23/24 19:59 Ropinirole Hcl 1 Mg Tablet BY MOUTH 1 mg HS JAY Administration Rosuvastatin Calcium 10 mg 08/23/24 09:00 08/23/24 08:37 Rosuvastatin 10 Mg Tablet PO 10 mg QAM JAY Administration Senna/Docusate Sodium 1 tab 08/23/24 21:00 08/23/24 19:58 Senna/Docusate Sodium Tablet PO Not Given HS JAY Radiology Results: ITS Impressions Head CT 08/22/24 11:23 IMPRESSION: 1. Normal aging brain. No fracture or acute intracranial process. Cervical Spine CT 08/22/24 11:28 IMPRESSION: 1. Severe cervical spondylosis. No acute osseous abnormality. Hip/Pelvis X-Ray 08/22/24 12:37 IMPRESSION: 1. 2.5 cm proximal to its placement of a transcervical fracture of the proximal left femur. Chest X-Ray 08/22/24 12:41 IMPRESSION: 1. Minimal left basilar atelectasis. Knee X-Ray 08/22/24 13:21 IMPRESSION: 1. At least minimal tricompartmental osteoarthritis the left knee which could be underestimated on nonweightbearing imaging. No knee joint effusion or acute osseous abnormality Quality VTE Prophylaxis VTE prophylaxis: mechanical ordered
[2024-08-24] MEDS: ROSUVASTATIN 10 MG TABLET PO (08:54)
[2024-08-24] MEDS: dilTIAZem HCL CD 240 MG CAP.24HR PO (08:54)
[2024-08-24 10:01] LABS: Hematocrit 42.4 % (42.0-52.0); Mean Corpuscular Hemoglobin 30.8 pg (26-34); Mean Corpuscular Volume 93.4 fl (80-100); Mean Platelet Volume 10.2 fl (7.4-10.4); Platelet Count Result 149 k/mm3 (150-375); Red Blood Count 4.54 M/mm3 (4.6-6.20); Red Cell Distribution Width 12.6 % (11.5-14.5); White Blood Count 8.6 K/mm3 (4.5-10.0)
[2024-08-24 10:10] LABS: Alanine Aminotransferase 15 U/L (6-50); Albumin Level 3.8 g/dL (3.5-5.1); Alkaline Phosphatase 74 U/L (38-126); Anion Gap 5 mmol/L (4-12); Aspartate Amino Transferase 21 U/L (17-59); Bilirubin,Total 1.7 mg/dL (0.2-1.3); Blood Urea Nitrogen 13 mg/dL (9-20); Calcium 8.7 mg/dL (8.4-10.2); Carbon Dioxide 27 mmol/L (22-30); Chloride 102 mmol/L (98-107); Estimated CRCL calculation 66 ml/min; Estimated Glomerular Filt Rate > 60; Glucose 114 mg/dL (65-110); Sodium 134 mmol/L (137-145)
--- NOTE | 2024-08-24 14:15 | P.PNAN_ITS ---
Anes - Initial Pre Proc Eval Procedure: Operation Date: 08/24/24 15:00 Proposed Procedures p Left Bipolar Hip Replacement - Pedro Santiago MD Date/Time: 08/24/24 14:15 Surgeon: Milvia Saldivar PA-C Pre Op Diagnosis: left hip fracture Patient Data Age: 78 Gender: M Height: 1.83 m Weight: 115.5 kg Last Vital Signs Temp 36.5 C 08/24/24 05:54 Pulse 76 08/24/24 05:54 Resp 18 08/24/24 05:54 BP 139/77 08/24/24 05:54 Pulse Ox 96 08/24/24 05:54 O2 Del Method CPAP 08/24/24 03:08 FiO2 21 08/23/24 08:30 Allergies Allergy/AdvReac Type Severity Reaction Status Date / Time No Known Allergies Allergy Verified 08/22/24 10:52 Home Medications ?Medication ?Instructions ?Recorded ?Confirmed ?Type clopidogrel 75 mg tablet 75 mg PO QAM #30 tabs 06/30/21 08/22/24 Rx rosuvastatin 10 mg tablet (Crestor) 10 mg PO QAM #30 tabs 06/30/21 08/22/24 Rx diltiazem HCl 240 mg 240 mg PO QAM #30 caps 12/22/21 08/22/24 Rx capsule,extended release 24 hr, controlled ropinirole 1 mg tablet See Rx Instructions .Route 05/18/24 08/22/24 Rx .COMPLEX #90 tabs aspirin 81 mg tablet,delayed 81 mg PO BID 08/22/24 08/22/24 History release Laboratory Tests 08/24/24 09:48 WBC 8.6 K/mm3 (4.5-10.0) RBC 4.54 L M/mm3 (4.6-6.20) Hgb 14.0 g/dL (14.0-18.0) Hct 42.4 % (42.0-52.0) MCV 93.4 fl (80-100) MCH 30.8 pg (26-34) MCHC 33.0 g/dl (32-36) RDW 12.6 % (11.5-14.5) Plt Count 149 L k/mm3 (150-375) MPV 10.2 fl (7.4-10.4) Sodium 134 L mmol/L (137-145) Potassium 4.0 mmol/L (3.4-5.0) Chloride 102 mmol/L (98-107) Carbon Dioxide 27 mmol/L (22-30) Anion Gap 5 mmol/L (4-12) BUN 13 mg/dL (9-20) Creatinine 1.10 mg/dL (0.7-1.3) Estim Creat Clear Calc 66 ml/min Estimated GFR > 60 (59 - ) Glucose 114 H mg/dL (65-110) Calcium 8.7 mg/dL (8.4-10.2) Total Bilirubin 1.7 H mg/dL (0.2-1.3) AST 21 U/L (17-59) ALT 15 U/L (6-50) Alkaline Phosphatase 74 U/L (38-126) Total Protein 7.0 g/dL (6.3-8.2) Albumin 3.8 g/dL (3.5-5.1) Patient hx anesthesia problems: none Family hx anesthesia problems: none Results Review: All pre-operative results and documents have been reviewed as part of the pre- operative evaluation. [facility] Past Medical History Medical History (Updated 08/22/24 @ 19:40 by Pam Wolf PA-C) Hypertension Kidney stone Transient ischemic attack (2013) Restless leg syndrome Obstructive sleep apnea on CPAP Supraventricular tachycardia Coronary artery disease Pericarditis (11/2021) Dyslipidemia Surgical History Surgical History History of cataract extraction with lens replacement History of coronary artery stent placement (07/2021) Family History Family History Mother Heart disease Cerebrovascular accident Father Heart disease Sibling Heart disease Afib Social History Social History Social History: Surrogate decision maker: Irasema Croft, spouse. Code status: Full code. Smoking packs per day: 0.5 Smoking cigarettes per day: 10.0 Years smoked: 15 Smoking pack-years: 7.50 Smoking status: Never smoker Tobacco type: cigarettes Second hand tobacco smoke exposure: Yes (as a child) Smoking end date: 09/09/81 Alcohol intake: current Drinks per week: 1 Substance use: never Substance use type: does not use Do You Feel Safe in your Home?: Yes Lack of Transportation: No Lack of Food: Never True Current Housing: I Have Housing Concerned About Future Housing: No Difficulty Paying Gas/Electric Bills: No Difficulty Paying for Meds: No Currently Unemployed: No Education: High School Diploma/GED Difficulty w/ Childcare or Family Care: No Living arrangements: with family Occupation/Education: retired Spiritual care concerns: No Anes - Eval Final PreProcedure Day of Procedure 08/24/24 14:15 Patient weight: obese Heart: regular rate and rhythm Lungs: clear to auscultation Airway: Mallampati scale class III Neurological: alert and oriented Last oral intake: >/= 8 hours ASA classification: III Emergent: no Anesthetic plan: proceed Anesthesia type and monitoring: general ETT and standard monitoring Results Review: All pre-operative results and documents have been reviewed as part of the pre- operative evaluation. Informed Consent: The patient's anesthetic plan and its attendant risks and benefits were discussed with the patient/family/POA. Questions were solicited and answers provided to the satisfaction of the patient/family/POA.
--- NOTE | 2024-08-24 15:19 | WPDHPUPDATE1 ---
History and Physical Update Update Date/Time: 08/24/24 15:19 History and Physical has been reviewed, including an updated exam of the patient. There are NO changes in the patient's condition. Risks, benefits, and alternatives have been discussed and questions answered. Patient agrees to proceed with procedure.
[2024-08-24] MEDS: TRANEXAMIC ACID 1,000MG/ISO100 1,000 MG/100 ML BAG 200 MG IVPB (15:34)
[2024-08-24] MEDS: ceFAZolin 2 GM/D5W 50 ML 2 GM/50 ML BAG IVPB ×2 (15:34→22:01)
[2024-08-24] MEDS: VANCOMYCIN 1,000 MG/NS 250 ML 1,000 MG/250 ML BAG 250 MG IVPB (15:34)
--- NOTE | 2024-08-24 17:08 | W.PM.PROC2 ---
Procedure Note - Detailed Date of Procedure 08/24/24 Pre-op Diagnosis LEFT Femoral Neck hip fracture Post-op Diagnosis Same Procedure Performed Bipolar replacement Surgeon Pedro Santiago MD [employer] [facility] Anesthesia General Indications Hip fracture and pain. Description of Procedure Patient brought to operating room 7. General anesthetic was administered. He was placed on the operating table and sterilely prepped and draped in usual manner. After time-out, a longitudinal incision made over the hip. Dissection carried down to the fascia. The fascia split. A Barboza type approach was used. This allowed me to dislocate the femoral neck anteriorly. It was cut a fingerbreadth above the lesser trochanter. Femoral head was removed measured between 53 and 54 millimeters. A 54 millimeter bipolar was chosen. The femur reamed and broached to accept a #6 stem. This was impacted into place with a standard neck. The bipolar placed the hip was reduced with some difficulty. It seemed to be quite stable. The wound irrigated hemostasis obtained and closed with 5. Ethibond 2. Vicryl 2-0 Vicryl and robert placed a sterile dressing applied patient tolerated procedure well. And left the operating room satisfactory condition. Implants J [employer] J Hip Estimated Blood Loss 500 Urine Output 250 Complications No immediate complications Condition Stable Disposition PACU [facility] Billing Surgery - Charge Forward: Surgery Billing ([id number] Bipolar Hip)
[2024-08-24] MEDS: LACTATED RINGERS 1,000 ML 30 ML IV CONT (17:33)
[2024-08-24] MEDS: HYDROcodone/acetaminophen (*CRX) 5-325 MG TABLET 1 TAB PO (20:18)
[2024-08-24] MEDS: rOPINIRole HCL 1 MG TABLET BY MOUTH (20:18)
[2024-08-25] VITALS (7 sets, daily range): BP systolic 124–133; BP diastolic 57–71; PULSE 78–97; RESP 14–20; TEMP 36.5–37; O2SAT 94–96
[2024-08-25] MEDS: HYDROcodone/acetaminophen (*CRX) 7.5-325 MG TABLET 1 TAB PO ×4 (01:04→13:36)
[2024-08-25] MEDS: ceFAZolin 2 GM/D5W 50 ML 2 GM/50 ML BAG IVPB ×2 (05:24→13:28)
[2024-08-25 06:14] LABS: Hematocrit 39.1 % (42.0-52.0); Mean Corpuscular HGB Conc 33.2 g/dl (32-36); Mean Corpuscular Hemoglobin 31.3 pg (26-34); Mean Corpuscular Volume 94.2 fl (80-100); Mean Platelet Volume 10.9 fl (7.4-10.4); Platelet Count Result 175 k/mm3 (150-375); Red Blood Count 4.15 M/mm3 (4.6-6.20); Red Cell Distribution Width 12.3 % (11.5-14.5); White Blood Count 14.5 K/mm3 (4.5-10.0)
[2024-08-25 06:28] LABS: Alanine Aminotransferase 17 U/L (6-50); Albumin Level 3.7 g/dL (3.5-5.1); Alkaline Phosphatase 80 U/L (38-126); Anion Gap 3 mmol/L (4-12); Aspartate Amino Transferase 37 U/L (17-59); Bilirubin,Total 1.2 mg/dL (0.2-1.3); Blood Urea Nitrogen 14 mg/dL (9-20); Calcium 8.6 mg/dL (8.4-10.2); Carbon Dioxide 29 mmol/L (22-30); Chloride 102 mmol/L (98-107); Estimated CRCL calculation 71 ml/min; Estimated Glomerular Filt Rate > 60; Glucose 133 mg/dL (65-110); Potassium 4.1 mmol/L (3.4-5.0); Sodium 134 mmol/L (137-145)
[2024-08-25 07:53] LABS: Basophils Percent Auto 0.1 % (0.2-1.2); Immature Granulocyte Absolute 0.08 K/mm3 (0.00-0.031); Immature Granulocyte Percent A 0.5 % (0-0.5); Lymphocytes Absolute Auto 0.46 K/mm3 (0.9-3.2); Lymphocytes Percent Auto 3.1 % (18.3-44.2); Monocytes Absolute Auto 0.8 K/mm3 (0.1-0.6); Monocytes Percent Auto 5.3 % (2.6-8.5); Neutrophils Absolute Auto 13.4 K/mm3 (1.3-6.7)
--- NOTE | 2024-08-25 07:59 | P.PNIM_ITS ---
Progress Note: A&P Assessment and Plan (1) Ground-level fall: Code(s): W18.30XA - Fall on same level, unspecified, initial encounter Status: Acute Assessment and Plan: Patient slipped on wet pavement outside and landed hard on his left hip. Denies head trauma loss of consciousness in the fall. Patient on dual antiplatelet therapy with ASA and plavix. - Head CT: No fracture or acute intracranial process - C spine: Severe cervical spondylosis. No acute osseous abnormality. - Chest XR: Minimal left basilar atelectasis. - Hip/pelvis XR: 2.5 cm proximal to its placement of a transcervical fracture of the proximal left femur. - Knee XR: At least minimal tricompartmental osteoarthritis the left knee. No knee joint effusion or acute osseous abnormality - PT/OT partial weight bearing (2) Fracture of femoral neck, left: Code(s): S72.002A - Fracture of unspecified part of neck of left femur, initial encounter for closed fracture Status: Acute Assessment and Plan: Patient slipped on wet pavement outside and landed hard on his left hip. Denies head trauma loss of consciousness in the fall. Patient on dual antiplatelet therapy with ASA and plavix. - Hip/pelvis XR: 2.5 cm proximal to its placement of a transcervical fracture of the proximal left femur. - Knee XR: At least minimal tricompartmental osteoarthritis the left knee which could be underestimated on nonweightbearing imaging. No knee joint effusion or acute osseous abnormality - Analgesics - DVT ppx: per surgery, currently on SCD, holding asa and plavix. - Antibiotic: Ancef, course completed on 08/25 - PT/OT partial weight bearing - Ortho consulted, appreciate recommendations s/p bipolar replacement on 08/[address] Santiago (3) Coronary artery disease: Code(s): I25.10 - Atherosclerotic heart disease of [place] coronary artery without angina pectoris Status: Acute Assessment and Plan: Chronic, continue diltiazem and rosuvastatin. Currently holding asa and plavix in anticipation for surgery. Resume when appropriate. (4) Hyperlipidemia: Code(s): E78.5 - Hyperlipidemia, unspecified Status: Acute Assessment and Plan: Chronic, continue home medications - Rosuvastatin 10 mg daily (5) Hypertension: Code(s): I10 - Essential (primary) hypertension Status: Acute Assessment and Plan: Chronic, continue home medications - diltiazem 240 mg daily - monitor (6) Obstructive sleep apnea on CPAP: Code(s): G47.33 - Obstructive sleep apnea (adult) (pediatric); Z99.89 - Dependence on other enabling machines and devices Status: Acute Assessment and Plan: Continue CPAP use Time Spent With Patient Time with patient: 25 - 35 minutes Subjective Date/time seen: 08/25/24 07:59 Interval history: 78-year-old male with coronary artery disease, hypertension, dyslipidemia, paroxysmal supraventricular tachycardia, and obstructive sleep apnea on CPAP presented to the hospital via EMS for evaluation of left hip pain after fall. Patient is pleasant lying comfortably in bed with at bedside. He states that his surgery went well and his pain is well tolerated on the current regimen. He was able to work with therapy today and wishes to move forward with rehab at time of discharge. Care coordination following. Patient has no complaints denying chest pain, shortness of breath, nausea/vomiting, and abdominal pain. Review of Systems Review of Systems: All systems reviewed & are unremarkable except as noted in HPI and below Exam Narrative: AF HR 94 RR 20 SpO2 96 BP 133/59 General: male in no acute respiratory distress who is nontoxic appearing, lying semi recumbent in bed. HEENT: Normocephalic. Atraumatic.Extraocular movement intact. Sclera clear and anicteric. No facial asymmetry. Chest: Lungs are clear to auscultation bilaterally. No wheezes or crackles. CV: Heart was regular rate and rhythm. S1/S2. No murmurs, gallops, or rubs. Abd: Abdomen was soft. Nontender. Nondistended. Positive bowel sounds. No organomegaly or masses. Ext: No clubbing, cyanosis, or edema. 2+ DP pulses bilaterally. Able to move his toes. Dressing clean/dry/intact to the lateral left leg. Neuro: Patient is alert. Speech is clear. Mild bilateral numbness to the feet (patient states this is chronic and unchanged). Objective Data Vital Signs Vital Signs: Vital Signs - 24 hr 08/24/24 14:00 08/24/24 17:33 08/24/24 17:45 Temperature 99.5 F 98.5 F Pulse Rate 81 86 79 Respiratory Rate 14 10 L 18 Blood Pressure 136/67 148/67 H 140/66 Pulse Oximetry 94 100 100 Oxygen Delivery Room Air Simple Face Mask Simple Face Mask Oxygen Flow Rate 8 8 08/24/24 18:00 08/24/24 18:15 08/24/24 18:55 Temperature 97.8 F Pulse Rate 80 80 80 Respiratory Rate 18 22 H 20 Blood Pressure 150/74 H 145/69 H 158/81 H Pulse Oximetry 97 90 95 Oxygen Delivery Room Air Room Air Oxygen Flow Rate 08/24/24 19:13 08/24/24 20:00 08/24/24 20:13 Temperature 96.9 F L 97.3 F L Pulse Rate 83 87 Respiratory Rate 18 20 Blood Pressure 133/71 152/83 H Pulse Oximetry 99 97 Oxygen Delivery Room Air Oxygen Flow Rate 08/24/24 20:59 08/24/24 23:46 08/25/24 06:00 Temperature 96.9 F L 97.3 F L 97.9 F Pulse Rate 83 90 83 Respiratory Rate 18 18 18 Blood Pressure 133/71 121/75 132/71 Pulse Oximetry 99 96 96 Oxygen Delivery Oxygen Flow Rate Intake/Output Intake/Output: Intake & Output 08/22/24 08/23/24 08/24/24 08/25/24 23:59 23:59 23:59 23:59 Intake Total 290 2363 696 1215 Output Total 1800 1650 900 Balance 290 -320 -750 150 Meds/Results Medications: Active Medications Generic Name Dose Route Start Last Admin Trade Name Freq PRN Reason Stop Dose Admin Acetaminophen 650 mg 08/22/24 13:08 Acetaminophen 325 Mg Tablet PO Q4H PRN Mild Pain (1-3) or Fever Hydrocodone Bitart/Acetaminophen 1 tab 08/23/24 11:45 08/24/24 20:18 Hydrocodone/Acetaminophen (*Crx) 5-325 Mg Tablet PO 1 tab Q4H PRN Administration Pain Rated 4-6 Hydrocodone Bitart/Acetaminophen 1 tab 08/24/24 18:28 Hydrocodone/Acetaminophen (*Crx) 5-325 Mg Tablet PO Q4H PRN Pain Rated 4-6 Hydrocodone Bitart/Acetaminophen 1 tab 08/24/24 18:28 08/25/24 04:56 Hydrocodone/Acetaminophen (*Crx) 7.5-325 Mg Tablet PO 1 tab Q4H PRN Administration Pain Rated 7-10 Cyclobenzaprine HCl 10 mg 08/24/24 18:28 Cyclobenzaprine Hcl 10 Mg Tablet PO Q8H PRN Muscle Spasm Diltiazem HCl 240 mg 08/23/24 09:00 08/24/24 08:54 Diltiazem Hcl Cd 240 Mg Cap.24hr PO 240 mg QAM JAY Administration Fentanyl Citrate 25 mcg 08/24/24 17:44 Fentanyl Citrate Inj (*Crx) 100 Mcg/2 Ml Vial IV PUSH Q2M PRN Pain Hydromorphone HCl 1 mg 08/22/24 19:44 08/24/24 11:13 Hydromorphone Hcl Inj (*Crx) 1 Mg/Ml Syr IV PUSH 1 mg Q3H PRN Administration Pain Rated 7-10 Hydromorphone HCl 1 mg 08/24/24 18:28 08/24/24 20:29 Hydromorphone Hcl Inj (*Crx) 1 Mg/Ml Syr IV PUSH 1 mg Q2H PRN Administration Breakthrough Pain Rated 7-10 or NPO Hydromorphone HCl 0.5 mg 08/24/24 18:28 Hydromorphone Hcl Inj (*Crx) 1 Mg/Ml Syr IV PUSH Q2H PRN Breakthrough Pain Rated 4-6 or NPO Hydroxyzine Pamoate 50 mg 08/24/24 18:28 Hydroxyzine Pamoate 25 Mg Capsule PO Q4H PRN Itching Sodium Chloride 1,000 mls @ 125 mls/hr 08/24/24 18:28 Normal Saline Iv IV CONT .Q8H JAY Cefazolin Sodium 2 gm in 50 mls @ 100 mls/hr 08/24/24 22:00 08/25/24 05:51 Ancef 2 Gm/D5w 50 Ml IVPB 08/25/24 14:29 Infused Q8H JAY Infusion Ibuprofen 800 mg in 200 mls @ 400 mls/hr 08/24/24 18:28 Caldolor 800 Mg/200 Ml IVPB Q6H PRN Breakthrough Pain Rated 1-3 or NPO Naloxone HCl 0.1 mg 08/24/24 18:28 Naloxone Hcl 0.4 Mg/Ml Vial IV PUSH Q2M PRN Opiate Reversal Ondansetron HCl 4 mg 08/22/24 13:08 08/23/24 17:11 Ondansetron Inj 4 Mg/2 Ml Vial IV PUSH 4 mg Q4H PRN Administration Nausea Ondansetron HCl 4 mg 08/24/24 17:44 Ondansetron Inj 4 Mg/2 Ml Vial IV PUSH ONCE PRN Nausea Ondansetron HCl 4 mg 08/24/24 18:28 Ondansetron Inj 4 Mg/2 Ml Vial IV PUSH Q4H PRN Nausea And Vomiting Polyethylene Glycol 17 gm 08/25/24 09:00 Polyethylene Glycol 3350 17 Gm Powd.Pack PO QAM JAY Ropinirole HCl 1 mg 08/22/24 21:00 08/24/24 20:18 Ropinirole Hcl 1 Mg Tablet BY MOUTH 1 mg HS JAY Administration Rosuvastatin Calcium 10 mg 08/23/24 09:00 08/24/24 08:54 Rosuvastatin 10 Mg Tablet PO 10 mg QAM JAY Administration Senna/Docusate Sodium 1 tab 08/23/24 21:00 08/24/24 20:30 Senna/Docusate Sodium Tablet PO Not Given HS JAY Senna/Docusate Sodium 2 tab 08/25/24 09:00 Senna/Docusate Sodium Tablet PO BID JAY Tramadol HCl 50 mg 08/24/24 18:28 Tramadol Hcl (*Crx) 50 Mg Tablet PO Q4H PRN Pain Rated 1-3 Radiology Results: ITS Impressions Head CT 08/22/24 11:23 IMPRESSION: 1. Normal aging brain. No fracture or acute intracranial process. Cervical Spine CT 08/22/24 11:28 IMPRESSION: 1. Severe cervical spondylosis. No acute osseous abnormality. Hip/Pelvis X-Ray 08/22/24 12:37 IMPRESSION: 1. 2.5 cm proximal to its placement of a transcervical fracture of the proximal left femur. Chest X-Ray 08/22/24 12:41 IMPRESSION: 1. Minimal left basilar atelectasis. Knee X-Ray 08/22/24 13:21 IMPRESSION: 1. At least minimal tricompartmental osteoarthritis the left knee which could be underestimated on nonweightbearing imaging. No knee joint effusion or acute osseous abnormality Intraoperative X-Ray 08/24/24 17:19 IMPRESSION: 1. 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 Labs Labs: Laboratory Results - last 24 hr 08/24/24 08/25/24 09:48 05:38 WBC 8.6 14.5 H RBC 4.54 L 4.15 L Hgb 14.0 13.0 L Hct 42.4 39.1 L MCV 93.4 94.2 MCH 30.8 31.3 MCHC 33.0 33.2 RDW 12.6 12.3 Plt Count 149 L 175 MPV 10.2 10.9 H Immature Gran % (Auto) 0.5 Neut % (Auto) 91.0 H Lymph % (Auto) 3.1 L [place] % (Auto) 5.3 Eos % (Auto) 0.0 Baso % (Auto) 0.1 L Lymph # (Auto) 0.46 L [place] # (Auto) 0.8 H Eos # (Auto) 0.0 Baso # (Auto) 0.0 Abs Immat Gran (auto) 0.08 H Absolute Neuts (auto) 13.4 H Absolute Nucleated RBC 0.000 Nucleated RBC % 0.0 Sodium 134 L 134 L Potassium 4.0 4.1 Chloride 102 102 Carbon Dioxide 27 29 Anion Gap 5 3 L BUN 13 14 Creatinine 1.10 1.00 Estim Creat Clear Calc 66 71 Estimated GFR > 60 > 60 Glucose 114 H 133 H Calcium 8.7 8.6 Total Bilirubin 1.7 H 1.2 AST 21 37 ALT 15 17 Alkaline Phosphatase 74 80 Total Protein 7.0 7.0 Albumin 3.8 3.7 Quality VTE Prophylaxis VTE prophylaxis: mechanical ordered
[2024-08-25] MEDS: polyethylene glycoL 3350 17 GM POWD.PACK PO (08:32)
[2024-08-25] MEDS: ROSUVASTATIN 10 MG TABLET PO (08:32)
[2024-08-25] MEDS: dilTIAZem HCL CD 240 MG CAP.24HR PO (08:32)
[2024-08-25] MEDS: SENNA/DOCUSATE SODIUM TABLET 2 TAB PO ×2 (08:32→17:42)
[2024-08-25] MEDS: CYCLOBENZAPRINE HCL 10 MG TABLET PO (13:36)
[2024-08-25] MEDS: IBUPROFEN IV 800 MG/200 ML 800 MG/200 ML BAG 400 MG IVPB (13:37)
--- NOTE | 2024-08-25 14:50 | P.PNOP_ITS ---
Progress Note: A&P Assessment and Plan (1) Fracture of femoral neck, left: Code(s): S72.002A - Fracture of unspecified part of neck of left femur, initial encounter for closed fracture Status: Acute Assessment and Plan: S/P bipolar replacement. Doing ok. Needs rehab Subjective Subjective Date/Time Seen: 08/25/24 14:50 Principal diagnosis: Bipolar Left Hip Review of Systems Review of Systems: 12 systems were reviewed and are negativ e except for as per HPI. Exam Narrative: Dressing intact NVI Walking with a walker Objective Data Vital Signs Vital Signs: Vital Signs - 24 hr 08/24/24 17:33 08/24/24 17:45 08/24/24 18:00 Temperature 98.5 F Pulse Rate 86 79 80 Respiratory Rate 10 L 18 18 Blood Pressure 148/67 H 140/66 150/74 H Pulse Oximetry 100 100 97 Oxygen Delivery Simple Face Mask Simple Face Mask Room Air Oxygen Flow Rate 8 8 08/24/24 18:15 08/24/24 18:55 08/24/24 19:13 Temperature 97.8 F 96.9 F L Pulse Rate 80 80 83 Respiratory Rate 22 H 20 18 Blood Pressure 145/69 H 158/81 H 133/71 Pulse Oximetry 90 95 99 Oxygen Delivery Room Air Oxygen Flow Rate 08/24/24 20:00 08/24/24 20:13 08/24/24 20:59 Temperature 97.3 F L 96.9 F L Pulse Rate 87 83 Respiratory Rate 20 18 Blood Pressure 152/83 H 133/71 Pulse Oximetry 97 99 Oxygen Delivery Room Air Oxygen Flow Rate 08/24/24 23:46 08/25/24 06:00 08/25/24 07:50 Temperature 97.3 F L 97.9 F Pulse Rate 90 83 Respiratory Rate 18 18 Blood Pressure 121/75 132/71 Pulse Oximetry 96 96 Oxygen Delivery Room Air Oxygen Flow Rate 08/25/24 07:50 08/25/24 08:00 08/25/24 11:57 Temperature 98.3 F 97.7 F Pulse Rate 87 94 Respiratory Rate 16 20 Blood Pressure 127/67 133/59 L Pulse Oximetry 96 96 Oxygen Delivery Room Air Oxygen Flow Rate Intake/Output Intake/Output: Intake & Output 08/22/24 08/23/24 08/24/24 08/25/24 23:59 23:59 23:59 23:59 Intake Total 290 4157 346 2968 Output Total 1800 1650 1000 Balance 183 -108 -978 530 Meds/Results Medications: Active Medications Generic Name Dose Route Start Last Admin Trade Name Freq PRN Reason Stop Dose Admin Acetaminophen 650 mg 08/22/24 13:08 Acetaminophen 325 Mg Tablet PO Q4H PRN Mild Pain (1-3) or Fever Hydrocodone Bitart/Acetaminophen 1 tab 08/23/24 11:45 08/24/24 20:18 Hydrocodone/Acetaminophen (*Crx) 5-325 Mg Tablet PO 1 tab Q4H PRN Administration Pain Rated 4-6 Hydrocodone Bitart/Acetaminophen 1 tab 08/24/24 18:28 Hydrocodone/Acetaminophen (*Crx) 5-325 Mg Tablet PO Q4H PRN Pain Rated 4-6 Hydrocodone Bitart/Acetaminophen 1 tab 08/24/24 18:28 08/25/24 13:36 Hydrocodone/Acetaminophen (*Crx) 7.5-325 Mg Tablet PO 1 tab Q4H PRN Administration Pain Rated 7-10 Cyclobenzaprine HCl 10 mg 08/24/24 18:28 08/25/24 13:36 Cyclobenzaprine Hcl 10 Mg Tablet PO 10 mg Q8H PRN Administration Muscle Spasm Diltiazem HCl 240 mg 08/23/24 09:00 08/25/24 08:32 Diltiazem Hcl Cd 240 Mg Cap.24hr PO 240 mg QAM JAY Administration Fentanyl Citrate 25 mcg 08/24/24 17:44 Fentanyl Citrate Inj (*Crx) 100 Mcg/2 Ml Vial IV PUSH Q2M PRN Pain Hydromorphone HCl 1 mg 08/22/24 19:44 08/24/24 11:13 Hydromorphone Hcl Inj (*Crx) 1 Mg/Ml Syr IV PUSH 1 mg Q3H PRN Administration Pain Rated 7-10 Hydromorphone HCl 1 mg 08/24/24 18:28 08/24/24 20:29 Hydromorphone Hcl Inj (*Crx) 1 Mg/Ml Syr IV PUSH 1 mg Q2H PRN Administration Breakthrough Pain Rated 7-10 or NPO Hydromorphone HCl 0.5 mg 08/24/24 18:28 Hydromorphone Hcl Inj (*Crx) 1 Mg/Ml Syr IV PUSH Q2H PRN Breakthrough Pain Rated 4-6 or NPO Hydroxyzine Pamoate 50 mg 08/24/24 18:28 Hydroxyzine Pamoate 25 Mg Capsule PO Q4H PRN Itching Sodium Chloride 1,000 mls @ 125 mls/hr 08/24/24 18:28 Normal Saline Iv IV CONT .Q8H JAY Ibuprofen 800 mg in 200 mls @ 400 mls/hr 08/24/24 18:28 08/25/24 13:37 Caldolor 800 Mg/200 Ml IVPB 400 mls/hr Q6H PRN Administration Breakthrough Pain Rated 1-3 or NPO Naloxone HCl 0.1 mg 08/24/24 18:28 Naloxone Hcl 0.4 Mg/Ml Vial IV PUSH Q2M PRN Opiate Reversal Ondansetron HCl 4 mg 08/22/24 13:08 08/23/24 17:11 Ondansetron Inj 4 Mg/2 Ml Vial IV PUSH 4 mg Q4H PRN Administration Nausea Ondansetron HCl 4 mg 08/24/24 17:44 Ondansetron Inj 4 Mg/2 Ml Vial IV PUSH ONCE PRN Nausea Ondansetron HCl 4 mg 08/24/24 18:28 Ondansetron Inj 4 Mg/2 Ml Vial IV PUSH Q4H PRN Nausea And Vomiting Polyethylene Glycol 17 gm 08/25/24 09:00 08/25/24 08:32 Polyethylene Glycol 3350 17 Gm Powd.Pack PO 17 gm QAM JAY Administration Ropinirole HCl 1 mg 08/22/24 21:00 08/24/24 20:18 Ropinirole Hcl 1 Mg Tablet BY MOUTH 1 mg HS [facility] Administration Rosuvastatin Calcium 10 mg 08/23/24 09:00 08/25/24 08:32 Rosuvastatin 10 Mg Tablet PO 10 mg QAM [facility] Administration Senna/Docusate Sodium 1 tab 08/23/24 21:00 08/24/24 20:30 Senna/Docusate Sodium Tablet PO Not Given HS [facility] Senna/Docusate Sodium 2 tab 08/25/24 09:00 08/25/24 08:32 Senna/Docusate Sodium Tablet PO 2 tab BID JAY Administration Tramadol HCl 50 mg 08/24/24 18:28 Tramadol Hcl (*Crx) 50 Mg Tablet PO Q4H PRN Pain Rated 1-3 Radiology Results: ITS Impressions Head CT 08/22/24 11:23 IMPRESSION: 1. Normal aging brain. No fracture or acute intracranial process. Cervical Spine CT 08/22/24 11:28 IMPRESSION: 1. Severe cervical spondylosis. No acute osseous abnormality. Hip/Pelvis X-Ray 08/22/24 12:37 IMPRESSION: 1. 2.5 cm proximal to its placement of a transcervical fracture of the proximal left femur. Chest X-Ray 08/22/24 12:41 IMPRESSION: 1. Minimal left basilar atelectasis. Knee X-Ray 08/22/24 13:21 IMPRESSION: 1. At least minimal tricompartmental osteoarthritis the left knee which could be underestimated on nonweightbearing imaging. No knee joint effusion or acute osseous abnormality Intraoperative X-Ray 08/24/24 17:19 IMPRESSION: 1. 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 Labs Labs: Laboratory Results - last 24 hr 08/25/24 08/25/24 08/25/24 05:38 05:38 05:38 WBC 14.5 H Cancelled RBC 4.15 L Cancelled Hgb 13.0 L Hct MCV MCH MCHC RDW Plt Count MPV Immature Gran % (Auto) Neut % (Auto) Lymph % (Auto) [place] % (Auto) Eos % (Auto) Baso % (Auto) Lymph # (Auto) [place] # (Auto) Eos # (Auto) Baso # (Auto) Abs Immat Gran (auto) Absolute Neuts (auto) Absolute Nucleated RBC Nucleated RBC % % Immature Plt Fraction Sodium Potassium Chloride Carbon Dioxide Anion Gap BUN Creatinine Estim Creat Clear Calc Estimated GFR Glucose Calcium Total Bilirubin AST ALT Alkaline Phosphatase Total Protein Albumin 08/25/24 08/25/24 08/25/24 05:38 05:38 05:38 WBC RBC Hgb Cancelled Hct 39.1 L Cancelled MCV 94.2 Cancelled MCH 31.3 MCHC RDW Plt Count MPV Immature Gran % (Auto) Neut % (Auto) Lymph % (Auto) [place] % (Auto) Eos % (Auto) Baso % (Auto) Lymph # (Auto) [place] # (Auto) Eos # (Auto) Baso # (Auto) Abs Immat Gran (auto) Absolute Neuts (auto) Absolute Nucleated RBC Nucleated RBC % % Immature Plt Fraction Sodium Potassium Chloride Carbon Dioxide Anion Gap BUN Creatinine Estim Creat Clear Calc Estimated GFR Glucose Calcium Total Bilirubin AST ALT Alkaline Phosphatase Total Protein Albumin 08/25/24 08/25/24 08/25/24 05:38 05:38 05:38 WBC RBC Hgb Hct MCV MCH Cancelled MCHC 33.2 Cancelled RDW 12.3 Cancelled Plt Count 175 MPV Immature Gran % (Auto) Neut % (Auto) Lymph % (Auto) [place] % (Auto) Eos % (Auto) Baso % (Auto) Lymph # (Auto) [place] # (Auto) Eos # (Auto) Baso # (Auto) Abs Immat Gran (auto) Absolute Neuts (auto) Absolute Nucleated RBC Nucleated RBC % % Immature Plt Fraction Sodium Potassium Chloride Carbon Dioxide Anion Gap BUN Creatinine Estim Creat Clear Calc Estimated GFR Glucose Calcium Total Bilirubin AST ALT Alkaline Phosphatase Total Protein Albumin 08/25/24 08/25/24 08/25/24 05:38 05:38 05:38 WBC RBC Hgb Hct MCV MCH MCHC RDW Plt Count Cancelled MPV 10.9 H Cancelled Immature Gran % (Auto) 0.5 Cancelled Neut % (Auto) 91.0 H Lymph % (Auto) [place] % (Auto) Eos % (Auto) Baso % (Auto) Lymph # (Auto) [place] # (Auto) Eos # (Auto) Baso # (Auto) Abs Immat Gran (auto) Absolute Neuts (auto) Absolute Nucleated RBC Nucleated RBC % % Immature Plt Fraction Sodium Potassium Chloride Carbon Dioxide Anion Gap BUN Creatinine Estim Creat Clear Calc Estimated GFR Glucose Calcium Total Bilirubin AST ALT Alkaline Phosphatase Total Protein Albumin 08/25/24 08/25/24 08/25/24 05:38 05:38 05:38 WBC RBC Hgb Hct MCV MCH MCHC RDW Plt Count MPV Immature Gran % (Auto) Neut % (Auto) Cancelled Lymph % (Auto) 3.1 L Cancelled [place] % (Auto) 5.3 Cancelled Eos % (Auto) 0.0 Baso % (Auto) Lymph # (Auto) [place] # (Auto) Eos # (Auto) Baso # (Auto) Abs Immat Gran (auto) Absolute Neuts (auto) Absolute Nucleated RBC Nucleated RBC % % Immature Plt Fraction Sodium Potassium Chloride Carbon Dioxide Anion Gap BUN Creatinine Estim Creat Clear Calc Estimated GFR Glucose Calcium Total Bilirubin AST ALT Alkaline Phosphatase Total Protein Albumin 08/25/24 08/25/24 08/25/24 05:38 05:38 05:38 WBC RBC Hgb Hct MCV MCH MCHC RDW Plt Count MPV Immature Gran % (Auto) Neut % (Auto) Lymph % (Auto) [place] % (Auto) Eos % (Auto) Cancelled Baso % (Auto) 0.1 L Cancelled Lymph # (Auto) 0.46 L Cancelled [place] # (Auto) 0.8 H Eos # (Auto) Baso # (Auto) Abs Immat Gran (auto) Absolute Neuts (auto) Absolute Nucleated RBC Nucleated RBC % % Immature Plt Fraction Sodium Potassium Chloride Carbon Dioxide Anion Gap BUN Creatinine Estim Creat Clear Calc Estimated GFR Glucose Calcium Total Bilirubin AST ALT Alkaline Phosphatase Total Protein Albumin 08/25/24 08/25/24 08/25/24 05:38 05:38 05:38 WBC RBC Hgb Hct MCV MCH MCHC RDW Plt Count MPV Immature Gran % (Auto) Neut % (Auto) Lymph % (Auto) [place] % (Auto) Eos % (Auto) Baso % (Auto) Lymph # (Auto) [place] # (Auto) Cancelled Eos # (Auto) 0.0 Cancelled Baso # (Auto) 0.0 Cancelled Abs Immat Gran (auto) 0.08 H Absolute Neuts (auto) Absolute Nucleated RBC Nucleated RBC % % Immature Plt Fraction Sodium Potassium Chloride Carbon Dioxide Anion Gap BUN Creatinine Estim Creat Clear Calc Estimated GFR Glucose Calcium Total Bilirubin AST ALT Alkaline Phosphatase Total Protein Albumin 08/25/24 08/25/24 08/25/24 05:38 05:38 05:38 WBC RBC Hgb Hct MCV MCH MCHC RDW Plt Count MPV Immature Gran % (Auto) Neut % (Auto) Lymph % (Auto) [place] % (Auto) Eos % (Auto) Baso % (Auto) Lymph # (Auto) [place] # (Auto) Eos # (Auto) Baso # (Auto) Abs Immat Gran (auto) Cancelled Absolute Neuts (auto) 13.4 H Cancelled Absolute Nucleated RBC 0.000 Cancelled Nucleated RBC % 0.0 % Immature Plt Fraction Sodium Potassium Chloride Carbon Dioxide Anion Gap BUN Creatinine Estim Creat Clear Calc Estimated GFR Glucose Calcium Total Bilirubin AST ALT Alkaline Phosphatase Total Protein Albumin 08/25/24 05:38 WBC RBC Hgb Hct MCV MCH MCHC RDW Plt Count MPV Immature Gran % (Auto) Neut % (Auto) Lymph % (Auto) [place] % (Auto) Eos % (Auto) Baso % (Auto) Lymph # (Auto) [place] # (Auto) Eos # (Auto) Baso # (Auto) Abs Immat Gran (auto) Absolute Neuts (auto) Absolute Nucleated RBC Nucleated RBC % Cancelled % Immature Plt Fraction Cancelled Sodium 134 L Potassium 4.1 Chloride 102 Carbon Dioxide 29 Anion Gap 3 L BUN 14 Creatinine 1.00 Estim Creat Clear Calc 71 Estimated GFR > 60 Glucose 133 H Calcium 8.6 Total Bilirubin 1.2 AST 37 ALT 17 Alkaline Phosphatase 80 Total Protein 7.0 Albumin 3.7
[2024-08-25] MEDS: SENNA/DOCUSATE SODIUM TABLET 1 TAB PO (20:29)
[2024-08-25] MEDS: rOPINIRole HCL 1 MG TABLET BY MOUTH (20:29)
[2024-08-25] MEDS: IBUPROFEN IV 800 MG/200 ML 800 MG/200 ML BAG 200 MG IVPB (20:30)
[2024-08-25] MEDS: ACETAMINOPHEN 325 MG TABLET 650 MG PO (22:14)
[2024-08-26 02:01] VITALS: PULSE 97; RESP 16
[2024-08-26 05:32] VITALS: BP 143/64; PULSE 66; RESP 14; TEMP 36.2; O2SAT 99
--- OUTSIDE RECORDS SUMMARY | 2024-08-26 05:52 | XMS_ITS | Encounter Summary ---
Author Organization [facility] Address [address] [place] [address] Care Team Providers Care Senior Automation Engineer Name Role Phone Nolberto Humphrey DO Primary Care Provider [phone] Encounter Details Date Type Department Care Team (Late st Contact Info) Description 12/19/2021 Orders Only [facility] Cardiology [address] [place] [address] Colby Winters MD [address] [id number] Social History Tobacco Use Types Packs/Day Years Used Date Smoking Tobacco: Former Smokeless Tobacco: Never Alcohol Use Standard Drinks/Week Comments Yes 0 (1 standard drink = 0.6 oz pur e alcohol) Sex and Gender Information Value Date Recorded Sex Assigned at Not on file Legal Sex Male 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 Gender Identity Not on file Sexual Orientation Straight 07/05/2021 1: 06 PM CDT documented as of this encounter Plan of Treatment Not on file documented as of this encounter Procedures Procedure Name Priority Date/Time Associated Diagnosis Comments CARDIOLOGY DOCUMENT SCAN Routine 12/19/2021 documented in this encounter Results * Cardiology Document Scan (12/19/2021) Anatomical Region Laterality Modality Other us Colby Winters MD [facility] Final Result documented in this encounter Visit Diagnoses Not on filedocumented in this encounter Care Teams Senior Automation Engineer Relationship Specialty Start Date End Date Nolberto Humphrey DO PCP - General Internal Medicine 05/03/21 11/19/22 documented as of this encounter
--- OUTSIDE RECORDS SUMMARY | 2024-08-26 05:52 | XMS_ITS | Encounter Summary ---
Author Organization [facility] Address [address] [place] [address] Care Team Providers Care Professional Development Instructor Name Role Phone Nolberto Humphrey DO Primary Care Provider [phone] Encounter Details Date Type Department Care Team (Late st Contact Info) Description 04/27/2022 Telephone [facility] Cardiology [address] [place] [address] Efren Sawyer MD [address] [place], [place] [id number] Social History Tobacco Use Types Packs/Day Years Used Date Smoking Tobacco: Former Smokeless Tobacco: Never Alcohol Use Standard Drinks/Week Comments Yes 0 (1 standard drink = 0.6 oz pur e alcohol) Sex and Gender Information Value Date Recorded Sex Assigned at Not on file 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 * Telephone Encounter - Alaina Melton - 04/27/2022 1:27 PM CDT Pt wants to know if he should still be taking Dilt-XR 240 mg. If so, he is requesting refill. Please advise. Thank you. Contact: documented in this encounter Plan of Treatment Not on file documented as of this encounter Visit Diagnoses Not on filedocumented in this encounter Discontinued Medications Medication Sig Discontinue Reason Start Date End Da te DILT-XR 240 mg 24 hr capsule Take 240 mg by mouth every morning Reorder 12/22/2021 04/27/2022 documented as of this encounter Care Teams Professional Development Instructor Relationship Specialty Start Date End Date Nolberto Humphrey DO PCP - General Internal Medicine 05/03/21 11/19/22 documented as of this encounter
--- OUTSIDE RECORDS SUMMARY | 2024-08-26 05:52 | XMS_ITS | Encounter Summary ---
Author Organization [facility] Address [address] [place] [address] Care Team Providers Care Legal Investigator Name Role Phone Nolberto Humphrey DO Primary Care Provider [phone] Encounter Details Date Type Department Care Team (Late st Contact Info) Description 11/08/2021 Orders Only [facility] Cardiology [address] [place] [address] Colby Winters MD [address] [id number] Social History Tobacco Use Types Packs/Day Years Used Date Smoking Tobacco: Former Smokeless Tobacco: Never Alcohol Use Standard Drinks/Week Comments Yes 0 (1 standard drink = 0.6 oz pur e alcohol) Sex and Gender Information Value Date Recorded Sex Assigned at Not on file 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 Gender Identity Not on file Sexual Orientation Straight 07/05/2021 1: 06 PM CDT documented as of this encounter Plan of Treatment Not on file documented as of this encounter Procedures Procedure Name Priority Date/Time Associated Diagnosis Comments CARDIOLOGY DOCUMENT SCAN Routine 11/08/2021 documented in this encounter Results * SCAN - CARDIOLOGY (11/08/2021) Anatomical Region Laterality Modality Other us Colby Winters MD [facility] Final Result documented in this encounter Visit Diagnoses Not on filedocumented in this encounter Care Teams Legal Investigator Relationship Specialty Start Date End Date Nolberto Humphrey DO PCP - General Internal Medicine 05/03/21 11/19/22 documented as of this encounter
--- OUTSIDE RECORDS SUMMARY | 2024-08-26 05:52 | XMS_ITS | Encounter Summary ---
Author Organization [facility] Address [address] [place] [address] Care Team Providers Care Commodity Manager Name Role Phone Nolberto Humphrey DO Primary Care Provider [phone] Leatha Silvestre MD Primary Care Provider [phone] Reason for Referral * Cardiology (Routine) - Closed Specialty Diagnoses / Procedures Referred By Controsa t Referred To Contact Diagnoses Pericardial effusion Procedures Transthoracic Echo Complete W Doppler/CF Tonny Wheatley NP [address] [facility] [address] [place] [address] Phone: tel: fax: [facility] Referral ID Status Reason Start Date Expiration Date Visits Re quested Visits Authorized [id number] Closed 11/10/2021 12/10/2022 1 1 VIDEOGRAPHER Encounter Details Date Type Department Care Team (Late st Contact Info) Description 11/10/[address] 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 Cardiology [address], [place] [address] [address], [place] [address] P:[phone] P:[phone] Echocardiographic Report Patient Name: OLAF NEWELL : 1945 Study Date: 12/11/2021 1:48:18 PM Gender: M Tech: Location: [place] Ref.Provider: TONNY WHEATLEY Height(Cm): 183 BSA: 2.25 Weight(Kg): 102.97 Heart Rate: 75 BP: 119/61 Quality: Good Order Provider: TONNY WHEATLEY Procedures: Echocardiographic Report: Transthoracic echocardiogram with complete 2D, M-Mode, and color Doppler examination. Indications: Pericardial Effusion. Measurements: 2D/M Mode ?Doppler ? Measurement ?Value ?Normal Range ? Measurement ?Value ?Normal Range ? EF Mod ? 71 ?AV Mean PG ? 4 ?mmHg ? EF MM ?71 ? [ 55 - 70 ] % ?AV Peak Uziel ?1.28 ? m/s ? LVIDd MM ? 5.40 ? [ 3.90 - 5.30 ] cm ? AV Peak PG ? 7 ?mmHg ? LVIDs MM ? 3.20 ? [ 2.30 - 3.90 ] cm ? AV VTI ? 0.26 ? cm ? LVPWd MM ? 1.30 ? [ 0.60 - 1.00 ] cm ? LVOT Peak Uziel ?1.04 ? [ 0.70 - 1.10 ] m/s ? IVSd MM ?1.60 ? [ 0.60 - 0.90 ] cm ? LVOT VTI ? 0.26 ? cm ? LA Dimension MM ?4.90 ? [ 2.70 - 3.80 ] cm ? MV E Peak Uziel ?0.60 ? [ 0.60 - 1.30 ] m/s ? AoR Diam MM ?3.50 ? [ 2.60 - 3.70 ] cm ? MV A Peak Uziel ?0.72 ? [ 0.40 - 0.80 ] m/s ? LA Volume Index ?34.00 ?[ 16.00 - 28.00 ] cc/m2 ?MV Decel Time ?209 ?[ 150 - 200 ] msec ? ACS MM ? 2.30 ? cm ? PV Peak Uziel ?0.96 ? [ 0.40 - 0.80 ] m/s ? TR Peak Uziel ?2.11 ? [ 0.40 - 0.80 ] m/s ? TR Peak PG ? 18 ? mmHg ? RVSP ? 26.00 ?mmHg ? E' ? 0.10 ? E/E' ? 6 ? Findings: Interpretation Site: Exam was interpreted at [facility]. Left Ventricle: Normal left ventricular systolic function. No focal wall motion abnormalities. Normal left ventricular size. Mild concentric left ventricular hypertrophy. Impaired diastolic relaxation Grade I. Ejection fraction is visually estimated at 70-75 %. Ejection fraction is measured at 71 %. Right Ventricle: Normal right ventricular size. Normal right ventricular systolic function. Left Atrium: There is mild enlargement of left atrium. Right Atrium: The right atrium is normal in size. Atrial Septum: Normal atrial septum. Mitral Valve: Normal appearance of the mitral valve. Trivial regurgitation of the mitral valve. There is no hemodynamically significant mitral stenosis by Doppler. Aortic Valve: No evidence of hemodynamically significant aortic stenosis by Doppler. Aortic cusps appear mildly sclerotic. Trileaflet aortic valve. Trace aortic valve regurgitation. Tricuspid Valve: Normal appearance of the tricuspid valve. Normal right ventricular systolic pressure. Estimated peak RVSP is 26 mmHg. Mild tricuspid regurgitation. Pulmonic Valve: Normal appearance of the pulmonic valve. No pulmonic stenosis. Trivial regurgitation in the pulmonic valve. Pericardium: Small to moderate pericardial effusion. Right atrial free wall invagination consistent with elevated pericadial pressure. Aorta: Normal aortic root. IVC: Normal size and incomplete respiratory collapse consistent with elevated right atrial pressure (5-10 mmHg). Conclusions: Normal left ventricular systolic function. No focal wall motion abnormalities. Normal left ventricular size. Mild concentric left ventricular hypertrophy. Impaired diastolic relaxation Grade I. Ejection fraction is visually estimated at 70-75 %. Ejection fraction is measured at 71 %. There is mild enlargement of left atrium. Mild tricuspid regurgitation. Small to moderate pericardial effusion. Right atrial free wall invagination consistent with elevated pericadial pressure. Normal sinus rhythm. Electronically Signed By: Colby Winters MD 2021-12-11 15:53:03 CDT Procedure Note Colby Winters MD - 12/11/2021 [facility] Cardiology [address], [place] [address] [address], [place] [address] P:[phone] P:[phone] Echocardiographic Report Patient Name: OLAF NEWELLPatient ID: [id number] : [id number] Date: 12/11/2021 1:48:18 PM Gender: MAccession #: [id number] Tech: GMLocation: [place] Ref.Provider: TONNY WHEATLEYHeight(Cm): 183 BSA: 2.25Weight(Kg): 102.97 Heart Rate: 75BP: 119/61 Quality: GoodOrder Provider: TONNY WHEATLEY Procedures: Echocardiographic Report: Transthoracic echocardiogram with complete 2D, M-Mode, and color Dopplerexamination. Indications: Pericardial Effusion. Measurements: 2D/M Mode Doppler Measurement Value Normal Range MeasurementValue Normal Range EF Mod 71 AV Mean PG 4mmHg EF MM 71 [ 55 - 70 ] % AV Peak Vel1.28 m/s LVIDd MM 5.40 [ 3.90 - 5.30 ] cm AV Peak PG 7mmHg LVIDs MM 3.20 [ 2.30 - 3.90 ] cm AV VTI0.26 cm LVPWd MM 1.30 [ 0.60 - 1.00 ] cm LVOT Peak Vel1.04 [ 0.70 - 1.10 ] m/s IVSd MM 1.60 [ 0.60 - 0.90 ] cm LVOT VTI0.26 cm LA Dimension MM 4.90 [ 2.70 - 3.80 ] cm MV E Peak Vel0.60 [ 0.60 - 1.30 ] m/s AoR Diam MM 3.50 [ 2.60 - 3.70 ] cm MV A Peak Vel0.72 [ 0.40 - 0.80 ] m/s LA Volume Index 34.00 [ 16.00 - 28.00 ] cc/m2 MV Decel [id number] [ 150 - 200 ] msec ACS MM 2.30 cm PV Peak Vel0.96 [ 0.40 - 0.80 ] m/s TR Peak Vel2.11 [ 0.40 - 0.80 ] m/s TR Peak PG 18mmHg RVSP26.00 mmHg E'0.10 E/E' 6 Findings: Interpretation Site: Exam was interpreted at [facility]. Left Ventricle: Normal left ventricular systolic function. No focal wall motionabnormalities. Normal left ventricular size. Mild concentric left ventricular hypertrophy.Impaired diastolic relaxation Grade I. Ejection fraction is visually estimated at 70-75 %.Ejection fraction is measured at 71 %. Right Ventricle: Normal right ventricular size. Normal right ventricular systolicfunction. Left Atrium: There is mild enlargement of left atrium. Right Atrium: The right atrium is normal in size. Atrial Septum: Normal atrial septum. Mitral Valve: Normal appearance of the mitral valve. Trivial regurgitation of the mitralvalve. There is no hemodynamically significant mitral stenosis by Doppler. Aortic Valve: No evidence of hemodynamically significant aortic stenosis by Doppler.Aortic cusps appear mildly sclerotic. Trileaflet aortic valve. Trace aortic valveregurgitation. Tricuspid Valve: Normal appearance of the tricuspid valve. Normal right ventricularsystolic pressure. Estimated peak RVSP is 26 mmHg. Mild tricuspid regurgitation. Pulmonic Valve: Normal appearance of the pulmonic valve. No pulmonic stenosis. Trivialregurgitation in the pulmonic valve. Pericardium: Small to moderate pericardial effusion. Right atrial free wallinvagination consistent with elevated pericadial pressure. Aorta: Normal aortic root. IVC: Normal size and incomplete respiratory collapse consistent with elevatedright atrial pressure (5-10 mmHg). Conclusions: Normal left ventricular systolic function. No focal wall motionabnormalities. Normal left ventricular size. Mild concentric left ventricular hypertrophy.Impaired diastolic relaxation Grade I. Ejection fraction is visually estimated at 70-75 %.Ejection fraction is measured at 71 %. There is mild enlargement of left atrium. Mild tricuspid regurgitation. Small to moderate pericardial effusion. Right atrial free wallinvagination consistent with elevated pericadial pressure. Normal sinus rhythm. Electronically Signed By: Colby Winters MD 2021-12-11 15:53:03 CDT Tonny Wheatley PAPER SUPERVISOR CV ECHO PROCEDURES Final Res ult documented in this encounter Visit Diagnoses Diagnosis Pericardial effusion- Primary Unspecified disease of pericardium Pericardial effusion Unspecified disease of pericardium documented in this encounter Care Teams Commodity Manager Relationship Specialty Start Date End Date Nolberto Humphrey DO PCP - General Internal Medicine 05/03/21 11/19/22 Leatha Silvestre MD PCP - General Internal Medicine 11/20/22 05/20/23 documented as of this encounter
--- OUTSIDE RECORDS SUMMARY | 2024-08-26 05:52 | XMS_ITS | Encounter Summary ---
Author Organization [facility] Address [address] [place] [address] Care Team Providers Care Production Proofreader Name Role Phone Nolberto Humphrey DO Primary Care Provider [phone] Encounter Details Date Type Department Care Team (Late st Contact Info) Description 11/09/2021 Orders Only [facility] Cardiology [address] [place] [address] Colby Winters MD [address] [phone] Social History Tobacco Use Types Packs/Day Years Used Date Smoking Tobacco: Former Smokeless Tobacco: Never Alcohol Use Standard Drinks/Week Comments Yes 0 (1 standard drink = 0.6 oz pur e alcohol) Sex and Gender Information Value Date Recorded Sex Assigned at Not on file 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 Gender Identity Not on file Sexual Orientation Straight 07/05/2021 1: 06 PM CDT documented as of this encounter Plan of Treatment Not on file documented as of this encounter Procedures Procedure Name Priority Date/Time Associated Diagnosis Comments CARDIOLOGY DOCUMENT SCAN Routine 11/09/2021 documented in this encounter Results * SCAN - CARDIOLOGY (11/09/2021) Anatomical Region Laterality Modality Other us Colby Winters MD [facility] Final Result documented in this encounter Visit Diagnoses Not on filedocumented in this encounter Care Teams Production Proofreader Relationship Specialty Start Date End Date Nolberto Humphrey DO PCP - General Internal Medicine 05/03/21 11/19/22 documented as of this encounter
--- OUTSIDE RECORDS SUMMARY | 2024-08-26 05:52 | XMS_ITS | Encounter Summary ---
Author Organization [facility] Address [address] [address] Care Team Providers Care Building Rental Superintendent Name Role Phone Nolberto Humphrey DO Primary Care Provider [phone] Encounter Details Date Type Department Care Team (Late st Contact Info) Description 11/08/[address] 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
--- OUTSIDE RECORDS SUMMARY | 2024-08-26 05:52 | XMS_ITS | Encounter Summary ---
Author Organization [facility] Address [address] [place] [address] Care Team Providers Care Topstitcher Lockstitch Name Role Phone Nolberto Humphrey DO Primary Care Provider [phone] Encounter Details Date Type Department Care Team (Late st Contact Info) Description 11/10/2021 Orders Only [facility] Cardiology [address] [place] [address] Colby Winters MD [address] [phone] Social History Tobacco Use Types Packs/Day Years Used Date Smoking Tobacco: Former Smokeless Tobacco: Never Alcohol Use Standard Drinks/Week Comments Yes 0 (1 standard drink = 0.6 oz pur e alcohol) Sex and Gender Information Value Date Recorded Sex Assigned at Not on file 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 Gender Identity Not on file Sexual Orientation Straight 07/05/2021 1: 06 PM CDT documented as of this encounter Plan of Treatment Not on file documented as of this encounter Procedures Procedure Name Priority Date/Time Associated Diagnosis Comments CARDIOLOGY DOCUMENT SCAN Routine 11/10/2021 documented in this encounter Results * SCAN - CARDIOLOGY (11/10/2021) Anatomical Region Laterality Modality Other us Colby Winters MD CV C[facility]IAC [facility]YE[facility] Final Result documented in this encounter Visit Diagnoses Not on filedocumented in this encounter Care Teams Topstitcher Lockstitch Relationship Specialty Start Date End Date Nolberto Humphrey DO PCP - General Internal Medicine 05/03/21 11/19/22 documented as of this encounter
--- OUTSIDE RECORDS SUMMARY | 2024-08-26 05:52 | XMS_ITS | Clinical Summary ---
Author Organization [facility] [address] Address [address] [place] [address] Care Team Providers Care Railway Equipment Operator Name Role Phone Ciaran Rizo MD Primary Care Provider [phone] Allergies No known active allergies Medications rOPINIRole (REQUIP) 1 mg tablet Take 1 tablet (1 mg total) by mouth nightly 2 Active aspirin 81 mg enteric coated tablet TAKE 1 TABLET BY MOUTH EVERY DAY 90 tablet 3 4 Active rosuvastatin (CRESTOR) 10 mg tablet TAKE 1 TABLET BY MOUTH EVERY DAY IN THE MORNING 90 tablet 2 4 Active dilTIAZem XR 240 mg 24 hr capsule TAKE 1 CAPSULE BY MOUTH EVERY DAY IN THE MORNING 90 capsule 1 4 Active clopidogreL (PLAVIX) 75 mg tablet TAKE 1 TABLET BY MOUTH EVERY DAY IN THE MORNING 90 tablet 1 4 Active clopidogreL (PLAVIX) 75 mg tablet TAKE 1 TABLET BY MOUTH EVERY DAY IN THE MORNING 90 tablet 1 4 08/24/20 24 Discontinued Active Problems Problem Noted Date Diagnosed Date History of coronary artery stent placement 01/04 Visit for wound check 07/24/2021 Chest pain 07/12/2021 Dyspnea on effort 05/09/2021 Iron deficiency 02/24/2018 RLS (restless legs syndrome) 02/24/2018 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 Possibly triggering AF. Recommend diagnostic EPS and possible catheter ablation of the SVT mechanism. I discussed procedural steps, risks/benefits, recovery, expected outcomes with patient. He is specifically at elevated risk for procedural complications given his recent multivessel PCI for severe multivessel coronary artery disease. He understands and wishes to proceed. --Will arrange for diagnostic EPS, SVT ablation w/anesthesia --Hold apixaban for 2 days prior to procedure. --Hold metoprolol for 5 days prior to procedure. Resolved Problems Problem Noted Date Diagnosed Date Resolved Date Coronary artery disease (CAD) excluded 07/11/2021 05/21/2023 Periodic limb movement disorder 04/20/2013 02/24/2018 Obesity 04/20/2013 02/24/2018 Atrial fibrillation (CMS/HCC) 03/28/2012 01/04/2022 Assessment & Plan (09/12/2021 4:29 PM DRY CLEANER): Infrequent AF episodes seen on ambulatory monitoring and in hospital. [place] unclear, but appears to be overestimated by ambulatory monitor (confused with SVT). Suspect AF may be triggered primarily by SVT. Would recommend starting with SVT ablation and implantation of an ILR for AF surveillance. If symptomatic AF returns, AF ablation or antiarrhythmic drugs can be considered. [id number] = 3. Anticoagulation is reasonable for now, and decisions regarding need for long- term anticoagulation can be guided by ILR surveillance data. --Continue apixaban 5 mg PO BID. Hold starting 2 days prior to EPS/SVT ablation. --ILR implantation at time of SVT ablation. 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 Encounters Date Type Department Care Team Description 05/28/2024 8:45 AM CDT Office Visit [facility] Cardiology [address] [place] [address] Efren Sawyer MD History of coronary artery stent placement; SVT (supraventricular tachycardia) (HCC) from Last 3 Months Surgical History Surgery Date Site/Laterality Comments CATARACT EXTRACTION 2018 - both eyes CARDIAC CATHETERIZATION Medical History Medical History Date Comments Adiposity Obesity Sleep apnea 2010 - cpap therapy Hyperlipidemia Hypertension Family History Medical History Relation Name Comments Coronary artery disease Father olaf dillon Coronary Artery Bypass Graft; Heart attack Father olaf menchaca Myocar dial Infarction; Cause of : Myocardial Infarction Other Father olaf menchaca Valve Replacement; Relation Name Status Comments Father olaf menchaca Social History Tobacco Use Types Packs/Day Years Used Date Smoking Tobacco: Former Smokeless Tobacco: Never Tobacco Cessation:Counseling Given: Not Answered Alcohol Use Standard Drinks/Week Comments Yes 0 (1 standard drink = 0.6 oz pur e alcohol) Sex and Gender Information Value Date Recorded Sex Assigned at Not on file 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 Gender Identity Not on file Sexual Orientation Straight 07/05/2021 1: 06 PM CDT Obstetrics History Last Filed Vital Signs Vital Sign Reading Time Taken Comments Blood Pressure 160/68 05/28/2024 7:54 AM CDT Pulse 88 05/28/2024 7:54 AM CDT Temperature 36.9 ??C (98.4 ??F) 07/13/2021 4:24 AM CD T Respiratory Rate 16 09/12/2021 12:4 7 PM DRY CLEANER Oxygen Saturation 97% 05/28/2024 7:54 AM CDT Inhaled Oxygen Concentration - - Weight 117.1 kg (258 lb 1.6 oz) 05/28/2024 7:54 AM CDT Height 182.9 cm (6') 05/28/2024 7:54 AM CDT Body Mass Index 35 05/28/2024 7:54 AM CDT Plan of Treatment Health Maintenance Due Date Last Done Comments Depression Screening 1945 Hepatitis C Screening 1945 DTaP/Tdap/Td Vaccine (1 - Tdap) 1957 Hepatitis B Screening 1964 Zoster Vaccine (1 of 2) 1996 Abdominal Aortic Aneurysm (AAA) Screen 2011 Pneumococcal vaccine 65+ (1 of 1 - PCV) 2011 Well Visit 65+ 2011 Fall Risk Assessment 07/13/2022 07/13/2021 Influenza Vaccine (#1) 2024 Medical Devices Implanted Type Area Rehab Aide Device Identifier Shelf Expiration Date Model / Serial / Lot Delphix [id number] Synergy Xd Monorail 2.5mm 38mm 144cm Delivery System 1 Access - S0 - [id number] Implanted:Qty: 1 on 07/11/2021 by Rosendo Silva MD at [facility] Stent [employer] 04/05/2023 [id number] 250 / 0 / [id number] Description:LAD [employer] [id number] Stent Drug Eluting S Megatron Us Mr 3.48q76wf - S0 - [id number] Implanted:Qty: 1 on 07/11/2021 by Rosendo Silva MD at [facility] [employer] 01/03/2022 [id number] 350 / 0 / [id number] Description:LAD [employer] [id number] Synergy Xd Monorail 3mm 38mm 144cm Delivery System 1 Access Port - S0 - [id number] Implanted:Qty: 1 on 07/11/2021 by Rosendo Silva MD at [facility] [employer] 02/20/2023 [id number] 300 / 0 / [id number] Description:RCA [employer] [id number] Synergy Xd Monorail 3.5mm 28mm 144cm Delivery System 1 Access - S0 - [id number] Implanted:Qty: 1 on 07/11/2021 by Rosendo Silva MD at [facility] [employer] 02/09/2023 [id number] 350 / 0 / [id number] Description:RCA [employer] 99126-24 Perclose 6fr Suture Mediate Knot Push Vascular Device Closure - S0 - [id number] Implanted:Qty: 1 on 07/11/2021 by Rosendo Silva MD at [facility] [employer] 04/08/2023 [id number] / 0 / [id number] Insurance [facility] [place] [facility] Advance Directives For more information, please contact: [phone] * Full Code (Latest Code Status on File) Date Activated Date Inactivated Comments 07/11/2021 5:10 PM 07/13/2021 9:05 PM Care Teams Railway Equipment Operator Relationship Specialty Start Date End Date Ciaran Rizo MD PCP - General Family Practice 05/21/23
--- OUTSIDE RECORDS SUMMARY | 2024-08-26 05:52 | XMS_ITS | Encounter Summary ---
Author Organization [facility] Address [address] [place] [address] Care Team Providers Care Roof Bolter Name Role Phone Nolberto Humphrey DO Primary Care Provider [phone] Reason for Visit * Reason Onset Date Comments Med Management 08/11/2021 Encounter Details Date Type Department Care Team (Late st Contact Info) Description 08/11/2021 Telephone [facility] Medical [facility] Cardiology [address] [place] [address] Efren Saravia MD [address] [place] [address] Med Management Social History Tobacco Use Types Packs/Day Years Used Date Smoking Tobacco: Former Smokeless Tobacco: Never Alcohol Use Standard Drinks/Week Comments Yes 0 (1 standard drink = 0.6 oz pur e alcohol) Sex and Gender Information Value Date Recorded Sex Assigned at Not on file 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 SPORTS SALES ASSOCIATE * Telephone Encounter - Kelsie Wild - 08/11/2021 8:08 AM CST ----- Message from Rosendo Silva MD sent at 08/10/2021 8:18 PM TEAM SPORTS SALES ASSOCIATE ----- Continue eliquis SPORTS SALES ASSOCIATE * Telephone Encounter - Kelsie Wild - 08/11/2021 8:07 AM CST ----- Message from Rosendo Silva MD sent at 08/10/2021 8:18 PM TEAM SPORTS SALES ASSOCIATE ----- Continue eliquis SPORTS SALES ASSOCIATE * Telephone Encounter - Kelsie Wild - 08/11/2021 8:07 AM CST ----- Message from Rosendo Silva MD sent at 08/10/2021 8:18 PM TEAM SPORTS SALES ASSOCIATE ----- Continue eliquis SPORTS SALES ASSOCIATE documented in this encounter Plan of Treatment Not on file documented as of this encounter Visit Diagnoses Not on filedocumented in this encounter Care Teams Roof Bolter Relationship Specialty Start Date End Date Nolberto Humphrey DO PCP - General Internal Medicine 05/03/21 11/19/22 documented as of this encounter
--- OUTSIDE RECORDS SUMMARY | 2024-08-26 05:52 | XMS_ITS | Encounter Summary ---
Author Organization [facility] Medical Group Address [address] [place] [address] Care Team Providers Care Motor Vehicle Licence Examiner Name Role Phone Nolberto Humphrey DO Primary Care Provider [phone] Encounter Details Date Type Department Care Team (Late st Contact Info) Description 01/01/2022 Telephone [facility] Cardiology [address] [place] [id number] Efren Sawyer MD [address] [place], [place] [id number] Social History Tobacco Use Types Packs/Day Years Used Date Smoking Tobacco: Former Smokeless Tobacco: Never Alcohol Use Standard Drinks/Week Comments Yes 0 (1 standard drink = 0.6 oz pur e alcohol) Sex and Gender Information Value Date Recorded Sex Assigned at Not on file Legal Sex Male 2:20 PM CADDY Gender Identity Not on file Sexual Orientation Straight 07/05/2021 1: 06 PM CDT documented as of this encounter Miscellaneous Notes * Telephone Encounter - Genie Vasquez MA - 01/03/2022 1:17 PM CDT Spoke with patient, had a cancellation for tomorrow. Apt scheduled,. * Telephone Encounter - Alaina Melton - 01/03/2022 8:36 AM CDT Pt states he went to ER yesterday because of his BP being elevated. Pt believes Diltiazem is what is causing his BP to be high. Pt requesting sooner appt than 01/12. Requesting call back to discuss. Contact: * Telephone Encounter - Jazmyne Fan RN - 01/01/2022 9:18 AM CDT Pt sent to ER per CT recommendation. * Telephone Encounter - Jazmyne Fan RN - 01/01/2022 9:08 AM CDT Spoke with pt states he was DC from on . Since then his BP has been creeping up every day. He checks it several times a day. The past few days it has been avg 238/91. He also has new edema in his feet and ankles. New med diltiazem 240 mg daily. Will discuss with CT. * Telephone Encounter - Jeyson Escoto - 01/01/2022 8:25 AM CDT Pt called to report that day of discharge from [facility] 12/22 he was prescribed a new med and his BP has increased and he he has edema in his feet.Thank you Contact:[phone] documented in this encounter Plan of Treatment Not on file documented as of this encounter Visit Diagnoses Not on filedocumented in this encounter Care Teams Motor Vehicle Licence Examiner Relationship Specialty Start Date End Date Nolberto Humphrey DO PCP - General Internal Medicine 05/03/21 11/19/22 documented as of this encounter
--- OUTSIDE RECORDS SUMMARY | 2024-08-26 05:52 | XMS_ITS | Encounter Summary ---
Author Organization [facility] Address [address] [place] [address] Care Team Providers Care Scientist Propagator Name Role Phone Nolberto Humphrey DO Primary Care Provider [phone] Encounter Details Date Type Department Care Team (Late st Contact Info) Description 12/21/2021 Orders Only [facility] Cardiology [address] [place] [address] Colby Winters MD [address] [id number] Social History Tobacco Use Types Packs/Day Years Used Date Smoking Tobacco: Former Smokeless Tobacco: Never Alcohol Use Standard Drinks/Week Comments Yes 0 (1 standard drink = 0.6 oz pur e alcohol) Sex and Gender Information Value Date Recorded Sex Assigned at Not on file 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 Gender Identity Not on file Sexual Orientation Straight 07/05/2021 1: 06 PM CDT documented as of this encounter Plan of Treatment Not on file documented as of this encounter Procedures Procedure Name Priority Date/Time Associated Diagnosis Comments CARDIOLOGY DOCUMENT SCAN Routine 12/21/2021 documented in this encounter Results * Cardiology Document Scan (12/21/2021) Anatomical Region Laterality Modality Other Gwen Allan NP CV CARDIAC SERVICES PROCEDUR ES Final Result documented in this encounter Visit Diagnoses Not on filedocumented in this encounter Care Teams Scientist Propagator Relationship Specialty Start Date End Date Nolberto Humphrey DO PCP - General Internal Medicine 05/03/21 11/19/22 documented as of this encounter
--- OUTSIDE RECORDS SUMMARY | 2024-08-26 05:52 | XMS_ITS | Encounter Summary ---
Author Organization [facility] Medical Group Address [address] [place] [address] Care Team Providers Care Certified Ophthalmic Surgical Assistant Name Role Phone Nolberto Humphrey DO Primary Care Provider [phone] Reason for Visit * Reason Comments Follow-up 2 mo f/u Atrial Fibrillation Encounter Details Date Type Department Care Team (Late st Contact Info) Description 03/07/2022 1:00 PM CDT Office Visit [facility] Cardiology at [address] [place] [address] Efren Sawyer MD [address] [facility] [address] [place] [address] SVT (supraventricular tachycardia) (CMS/HCC) (HCC) (Primary Dx); History of coronary artery stent placement Social History Tobacco Use Types Packs/Day Years Used Date Smoking Tobacco: Former Smokeless Tobacco: Never Alcohol Use Standard Drinks/Week Comments Yes 0 (1 standard drink = 0.6 oz pur e alcohol) Sex and Gender Information Value Date Recorded Sex Assigned at Not on file 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 Gender Identity Not on file Sexual Orientation Straight 07/05/2021 1: 06 PM CDT documented as of this encounter Last Filed Vital Signs Vital Sign Reading Time Taken Comments Blood Pressure 120/70 03/07/2022 1:02 PM CDT Pulse 78 03/07/2022 1:02 PM CDT Temperature - - Respiratory Rate - - Oxygen Saturation - - Inhaled Oxygen Concentration - - Weight 105.6 kg (232 lb 12.9 oz) 03/07/2022 1:02 PM CDT Height 182.9 cm (6') 03/07/2022 1:02 PM CDT Body Mass Index 31.57 03/07/2022 1:02 PM CDT documented in this encounter Progress Notes * Efren Sawyer MD - 03/07/2022 1:00 PM CDT [facility] FOLLOW UP 03/07/2022 Olaf Croft is a 76 y.o. male who presents for follow up of coronary artery disease. This is a patient that I was saw in consultation in the end of April of 2021 because of symptoms of exertional shortness of breath that were concerning for the possibility of an ischemic equivalent. A stress echocardiogram was done in the office that was significantly abnormal leading to recommendation for an angiogram. Angiography done here at [facility] demonstrated a high-grade disease in theLAD proximally and in the midportion. It was a heavily calcified vessel. 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 He was referred to [facility] to see Dr. Silva. He underwent higher risk PCI involving stenting of the proximal into the mid LAD as well as CLOTH TESTER QUALITY intervention of the RPDA. At the time of catheterization is left ventricular systolic function was normal. Following that intervention the patient developed a clinical picture of pericarditis was hospit alized a couple of times at [facility]. He did have a small pericardial effusion with that. 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 He did have an event monitor done after this which did not show any evidence of atrial fibrillation either. He presents today to the office for scheduled follow-up. I saw him last couple of months ago. Overall he is doing well he denies any symptoms of chest pain dyspnea orthopnea PND. He has some momentary palpitations. According to that medication list card the patient has on his possession it looks like he still taking apixaban. He is not sure of that. I told him that I did not think he had atrial fibrillation and I did not think he needed systemic anticoagulation. He is going to finish the bottlethat he has if that is the case and then when he stops that he will go back to taking low-dose aspirin. He says he has some lower extremity edema that he has developed. On physical exam I appreciatednone of this at all. REVIEW OF SYSTEMS General ROS: negative for - chills, fatigue, fever, malaise, night sweats, weight gain or weight loss Psychological ROS: negative for - anxiety, depression, memory difficulties or sleep disturbances Ophthalmic ROS: negative for - blurry vision, decreased vision, loss of vision or scotomata ENT ROS: negative for - epistaxis, headaches, hearing change, nasal congestion, nasal discharge, sore throat, vertigo or visual changes Hematological and Lymphatic ROS: negative for - bleeding problems, blood clots, bruising, fatigue or weight loss Endocrine ROS: negative for - hot flashes, palpitations, polydipsia/polyuria or unexpected weight changes Respiratory ROS: negative for - cough, hemoptysis, orthopnea, shortness of breath, tachypnea or wheezing Cardiovascular ROS: negative for - chest pain, dyspnea on exertion, edema, irregular heartbeat, loss of consciousness, murmur, orthopnea, palpitations, paroxysmal nocturnal dyspnea, rapid heart rate or shortness of breath Gastrointestinal ROS: negative for - abdominal pain, appetite loss, blood in stools, constipation, diarrhea, gas/bloating, heartburn, hematemesis, melena or nausea/vomiting Genito-Urinary ROS: negative for - dysuria, erectile dysfunction or hematuria Musculoskeletal ROS: negative for - joint pain, muscle pain or muscular weakness Dermatological ROS: negative for dry skin, eczema, pruritus and rash HOME MEDICATIONS Current Outpatient Medications: ??? aspirin 81 mg enteric coated tablet, Take 1 tablet (81 mg total) by mouth daily, Disp: 30 tablet, Rfl: 11 ??? clopidogreL (PLAVIX) 75 mg tablet, TAKE 1 TABLET BY MOUTH EVERY DAY IN THE MORNING, Disp: 90 tablet, Rfl: 1 ??? DILT-XR 240 mg 24 hr capsule, Take 240 mg by mouth every morning, Disp: , Rfl: ??? metoprolol XL (TOPROL-XL) 50 mg extended release tablet, TAKE 1 TABLET BY MOUTH EVERY DAY IN THE MORNING, Disp: 90 tablet, Rfl: 1 ??? rosuvastatin (CRESTOR) 10 mg tablet, TAKE 1 TABLET BY MOUTH EVERY DAY IN THE MORNING, Disp: 90 tablet, Rfl: 1 LABS AND OTHER DIAGNOSTIC TESTS No results found for: CHOL No results found for: HDL No results found for: LDLCALC No results found for: TRIG No results found for: CHOLHDL Lab Results Component Value Date WBC 12.7 (H) 07/12/2021 HGB 12.5 (L) 07/12/2021 HCT 36.6 (L) 07/12/2021 MCV 92.0 07/12/2021 No lab exists for component: LABALBU PHYSICAL EXAM There were no vitals taken for this visit. Physical Examination: General appearance - alert, well appearing, and in no distress, oriented to person, place, and time and acyanotic, in no respiratory distress Mental status - affect appropriate to mood Eyes - extraocular eye movements intact, sclera anicteric, no pallor Ears - external earsappear normal, hearing grossly normal bilaterally Nose - normal and patent, no erythema or discharge Mouth - mucous membranes moist, pharynx appears normal, dental hygiene good and tongue normal Neck - supple, no significant neck masses, carotids upstroke normal bilaterally, no bruits, no JVD Chest - clear to auscultation, no wheezes, rales or rhonchi, symmetric air entry, no tachypnea, retractions or cyanosis Heart - normal rate, regular rhythm, normal S1, S2, no murmurs, rubs, clicks or gallops, no JVD Abdomen - soft, nontender, nondistended, no masses or organomegaly bowel sounds normal Neurological - alert, oriented, normal speech, no focal findings or movement disorder noted Musculoskeletal - no joint tenderness, deformity or swelling, no muscular tenderness noted Extremities - peripheral pulses normal, no pedal edema, no clubbing or cyanosis Skin - normal coloration and turgor, no rashes, no suspicious skin lesions noted ASSESSMENT Diagnoses and all orders for this visit: SVT (supraventricular tachycardia) (CMS/HCC) (HCC) History of coronary artery stent placement PLAN/RECOMMENDATIONS Patient will finish out his current supply of apixaban and then stop it altogether after that he will resume low-dose aspirin Follow-up with me 6 months or p.r.n. Efren Sawyer MD documented in this encounter Plan of Treatment Not on file documented as of this encounter Visit Diagnoses Diagnosis SVT (supraventricular tachycardia) (HCC)- Primary Other specified cardiac dysrhythmias History of coronary artery stent placement documented in this encounter Historical Medications * This list may reflect changes made after this encounter. rOPINIRole (REQUIP) 1 mg tablet Take 1 tablet (1 mg total) by mouth nightly 02/13/2022 added in this encounter Care Teams Certified Ophthalmic Surgical Assistant Relationship Specialty Start Date End Date Nolberto Humphrey DO PCP - General Internal Medicine 05/03/21 11/19/22 documented as of this encounter
--- OUTSIDE RECORDS SUMMARY | 2024-08-26 05:52 | XMS_ITS | Encounter Summary ---
Author Organization [facility] Medical Group Address [address] [place] [address] Care Team Providers Care Welt Butter Hand Name Role Phone Nolberto Humphrey DO Primary Care Provider [phone] Encounter Details Date Type Department Care Team (Late st Contact Info) Description 12/21/2021 Orders Only [facility] Cardiology [address] [place] [address] Efren Sawyer MD [address] [place] [address] Social History Tobacco Use Types Packs/Day Years Used Date Smoking Tobacco: Former Smokeless Tobacco: Never Alcohol Use Standard Drinks/Week Comments Yes 0 (1 standard drink = 0.6 oz pur e alcohol) Sex and Gender Information Value Date Recorded Sex Assigned at Not on file 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 Gender Identity Not on file Sexual Orientation Straight 07/05/2021 1: 06 PM CDT documented as of this encounter Plan of Treatment Not on file documented as of this encounter Procedures Procedure Name Priority Date/Time Associated Diagnosis Comments CARDIOLOGY DOCUMENT SCAN Routine 12/21/2021 documented in this encounter Results * Cardiology Document Scan (12/21/2021) Anatomical Region Laterality Modality Other us Efren Sawyer MD CV CARDIAC SERVICES PROC EDURES Final Result documented in this encounter Visit Diagnoses Not on filedocumented in this encounter Care Teams Welt Butter Hand Relationship Specialty Start Date End Date Nolberto Humphrey DO PCP - General Internal Medicine 05/03/21 11/19/22 documented as of this encounter
--- OUTSIDE RECORDS SUMMARY | 2024-08-26 05:52 | XMS_ITS | Encounter Summary ---
Author Organization [facility] Healthcare Address [address] [place] [address] Care Team Providers Care Diesel Dinkey Engineer Name Role Phone Ciaran Rizo MD Primary Care Provider [phone] Reason for Visit * Reason Comments Follow-up 6 mo f/u SVT * Consultation (Routine) - Closed Specialty Diagnoses / Procedures Referred By Contac t Referred To Contact Cardiology Diagnoses SVT (supraventricular tachycardia) (HCC) History of coronary artery stent placement Ciaran Rizo MD Phone: tel: fax: Efren Sawyer MD [address] [address] Phone: tel: fax: Referral ID Status Reason Start Date Expiration Date V isits Requested Visits Authorized [id number] Closed Specialty Services Required 11/08/2023 01/07/2024 10 10 Encounter Details Date Type Department Care Team (Late st Contact Info) Description 11/28/2023 9:00 AM CDT Office Visit [facility] Cardiology [address] [address] Efren Sawyer MD [address] [address] SVT (supraventricular tachycardia) (Primary Dx); History of coronary artery stent placement Social History Tobacco Use Types Packs/Day Years Used Date Smoking Tobacco: Former Smokeless Tobacco: Never Alcohol Use Standard Drinks/Week Comments Yes 0 (1 standard drink = 0.6 oz pur e alcohol) Sex and Gender Information Value Date Recorded Sex Assigned at Not on file 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 Gender Identity Not on file Sexual Orientation Straight 07/05/2021 1: 06 PM CDT documented as of this encounter Last Filed Vital Signs Vital Sign Reading Time Taken Comments Blood Pressure 130/78 11/28/2023 9:15 AM CDT Pulse 84 11/28/2023 9:15 AM CDT Temperature - - Respiratory Rate - - Oxygen Saturation 95% 11/28/2023 9:15 AM CDT Inhaled Oxygen Concentration - - Weight 115.8 kg (255 lb 3.2 oz) 11/28/2023 9:15 AM CDT Height 182.9 cm (6') 11/28/2023 9:15 AM CDT Body Mass Index 34.61 11/28/2023 9:15 AM CDT documented in this encounter Progress Notes * Efren Sawyer MD - 11/28/2023 9:00 AM CDT [facility] 11/28/2023 Olaf Menchaca is a 78 y.o. male who presents for follow up [...] for an angiogram. Angiography done here at [facility] demonstrated a high-grade disease in theLAD proximally and in the midportion. It was a heavily calcified vessel. 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 He was referred to [facility] to see Dr. Silva. He underwent higher risk PCI involving stenting of the proximal into the mid LAD as well as KILN DOOR REPAIRER intervention of the RPDA. At the time of catheterization is left ventricular systolic function was normal. Following that intervention the patient developed a clinical picture of pericarditis was hospit alized a couple of times at [facility]. He did have a small pericardial effusion with that. 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 He did have an event monitor done after this which did not show any evidence of atrial fibrillation either. The patient had a stress echocardiogram done in May of 2023 because he was having some atypical sounding symptoms. The study was negative at a high workload. He presents today for scheduled office follow-up. He is doing well and describes no symptoms consistent with ischemia. We discussed his favorable stress test findings from 6 months ago. REVIEW OF SYSTEMS General ROS: negative for [...] and rash HOME MEDICATIONS Current Outpatient Medications: aspirin 81 mg enteric coated tablet, TAKE 1 TABLET BY MOUTH EVERY DAY (Patient taking differently: Take 1 tablet (81 mg total) by mouth 2 (two) times a day), Disp: 90 tablet, Rfl: 3 clopidogreL (PLAVIX) 75 mg tablet, TAKE 1 TABLET BY MOUTH EVERY DAY IN THE MORNING, Disp: 90 tablet, Rfl: 1 dilTIAZem XR 240 mg 24 hr capsule, TAKE 1 CAPSULE BY MOUTH EVERY DAY IN THE MORNING, Disp: 90 capsule, Rfl: 1 rOPINIRole (REQUIP) 1 mg tablet, Take 1 tablet (1 mg total) by mouth nightly, Disp: , Rfl: rosuvastatin (CRESTOR) 10 mg tablet, TAKE 1 TABLET BY MOUTH EVERY DAY IN THE MORNING, Disp: 90 tablet, Rfl: 1 metoprolol XL (TOPROL-XL) 50 mg extended release tablet, TAKE 1 TABLET BY MOUTH EVERY DAY IN THE MORNING (Patient not taking: Reported on 11/20/2022), Disp: 90 tablet, Rfl: 1 LABS AND OTHER DIAGNOSTIC TESTS No results found for: CHOL No results found for: HDL No results found for: LDLCALC No results found for: TRIG No results found for: CHOLHDL Lab Results Component Value Date WBC 12.7 (H) 07/12/2021 HGB 12.5 (L) 07/12/2021 HCT 36.6 (L) 07/12/2021 MCV 92.0 07/12/2021 No lab exists for component: LABALBU PHYSICAL EXAM Vitals BP 130/78 (BP Location: Left arm, Patient Position: Sitting) Pulse 84 Ht 182.9 cm (6') Wt 115.8 kg (255 lb 3.2 oz) SpO2 95% BMI 34.61 kg/m?? Physical Examination: General appearance - alert, well [...] rashes, no suspicious skin lesions noted ASSESSMENT Olaf menchaca was seen today for follow-up and svt. Diagnoses and all orders for this visit: SVT (supraventricular tachycardia) History of coronary artery stent placement PLAN/RECOMMENDATIONS No change in medical regimen Follow-up 6 months or p.r.n. Efren Sawyer MD documented in this encounter Plan of Treatment Not on file documented as of this encounter Visit Diagnoses Diagnosis SVT (supraventricular tachycardia) (HCC)- Primary Other specified cardiac dysrhythmias History of coronary artery stent placement documented in this encounter Orders Outpatient Referral Count Last Ordered Date Fir st Ordered Date AMB REFERRAL TO CARDIOLOGY 1 01/31/2024 documented in this encounter Care Teams Diesel Dinkey Engineer Relationship Specialty Start Date End Date Ciaran Rizo MD PCP - General Family Practice 05/21/23 documented as of this encounter
--- OUTSIDE RECORDS SUMMARY | 2024-08-26 05:52 | XMS_ITS | Encounter Summary ---
Author Organization [facility] Address [address] [place] [address] Care Team Providers Care Lens Polisher Name Role Phone Nolberto Humphrey DO Primary Care Provider [phone] Reason for Visit * Reason Comments Follow-up SOB- 4 month fu Encounter Details Date Type Department Care Team (Late st Contact Info) Description 08/17/2021 11:15 AM LABEL STAMPER Office Visit [facility] Cardiology [address] [place] [id number] Efren Sawyer MD [address] [place] [address] SVT (supraventricular tachycardia) (CMS/HCC) (HCC) (Primary Dx); Atrial fibrillation, unspecified type (HCC) Social History Tobacco Use Types Packs/Day Years Used Date Smoking Tobacco: Former Smokeless Tobacco: Never Alcohol Use Standard Drinks/Week Comments Yes 0 (1 standard drink = 0.6 oz pur e alcohol) Sex and Gender Information Value Date Recorded Sex Assigned at Not on file Legal Sex Male 2:20 PM LABEL STAMPER Gender Identity Not on file Sexual Orientation Straight 07/05/2021 1: 06 PM CDT documented as of this encounter Last Filed Vital Signs Vital Sign Reading Time Taken Comments Blood Pressure 116/62 08/17/2021 11:17 AM LABEL STAMPER Pulse 80 08/17/2021 11:17 AM LABEL STAMPER Temperature - - Respiratory Rate - - Oxygen Saturation 97% 08/17/2021 11:17 AM LABEL STAMPER Inhaled Oxygen Concentration - - Weight 104.8 kg (231 lb) 08/17/2021 11:17 AM LABEL STAMPER Height 182.9 cm (6') 08/17/2021 11:17 AM LABEL STAMPER Body Mass Index 31.33 08/17/2021 11:17 AM LABEL STAMPER documented in this encounter Progress Notes * Efren Sawyer MD - 08/17/2021 11:15 AM CST [facility] 08/17/2021 Olaf Croft is a 75 y.o. male who presents for follow up [...] for an angiogram. Angiography done here at [facility] demonstrated a high-grade disease in theLAD proximally and in the midportion. It was a heavily calcified vessel. 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 He was referred to [place] to [facility] to see Dr. Silva. He underwent higher risk PCI involving stenting of the proximal into the mid LAD as well as SENIOR STATISTICIAN intervention of the RPDA. At the time of catheterization is left ventricular systolic function was normal. He returns today for scheduled follow-up after the above described intervention. He does not have any significant complaints and feels well. He states that while he was in the hospital recovering from the intervention he had an episode of atrial fibrillation. The patient wore a event monitor after that which looks like it did not show any evidence of AFib. He has an appointment in follow-up with an cellophane wrapping examiner in September also at [facility] for further discussion of this. For this reason he is on apixaban REVIEW OF SYSTEMS General ROS: negative for [...] rash HOME MEDICATIONS Current Outpatient Medications: ??? apixaban (ELIQUIS) 5 mg tablet, Take 1 tablet (5 mg total) by mouth every 12 (twelve) hours, Disp: 60 tablet, Rfl: 3 ??? clopidogreL (PLAVIX) 75 mg tablet, TAKE 1 TABLET BY MOUTH EVERY MORNING, Disp: 30 tablet, Rfl: 5 ??? metoprolol XL (TOPROL-XL) 50 mg extended release tablet, TAKE 1 TABLET BY MOUTH EVERY MORNING, Disp: 30 tablet, Rfl: 5 ??? rosuvastatin (CRESTOR) 10 mg tablet, TAKE 1 TABLET BY MOUTH EVERY MORNING, Disp: 30 tablet, Rfl: 5 ??? gabapentin (NEURONTIN) 100 mg capsule, Take 200 mg by mouth daily (Patient not taking: Reportedon 08/17/2021), Disp: , Rfl: LABS AND OTHER DIAGNOSTIC TESTS No results found for: CHOL No results found for: HDL No results found for: LDLCALC No results found for: TRIG No results found for: CHOLHDL Lab Results Component Value Date WBC 12.7 (H) 07/12/2021 HGB 12.5 (L) 07/12/2021 HCT 36.6 (L) 07/12/2021 MCV 92.0 07/12/2021 No lab exists for component: LABALBU PHYSICAL EXAM Vitals BP 116/62 (BP Location: Left arm, Patient Position: Sitting) Pulse 80 Ht 182.9 cm (6') Wt 104.8 kg (231 lb) SpO2 97% BMI 31.33 kg/m?? Physical Examination: General appearance - alert, [...] no suspicious skin lesions noted ASSESSMENT Olaf was seen today for follow-up. Diagnoses and all orders for this visit: SVT (supraventricular tachycardia) (CMS/HCC) (HCC) Atrial fibrillation, unspecified type (HCC) PLAN/RECOMMENDATIONS Continue current medical regimen he seems to be stable and continue phase 2 rehab Follow-up with [facility] in 4 months Anticipate reviewing the cellophane wrapping examiner note regarding his atrial fibrillation. Efren Sawyer MD L STAMPER documented in this encounter Plan of Treatment Not on file documented as of this encounter Visit Diagnoses Diagnosis SVT (supraventricular tachycardia) (HCC)- Primary Other specified cardiac dysrhythmias Atrial fibrillation, unspecified type (HCC) documented in this encounter Discontinued Medications Medication Sig Discontinue Reason Start Date End Da te aspirin 81 mg enteric coated tablet Take 81 mg by mouth daily Therapy completed 08/17/2021 documented as of this encounter Care Teams Lens Polisher Relationship Specialty Start Date End Date Nolberto Humphrey DO PCP - General Internal Medicine 05/03/21 11/19/22 documented as of this encounter
--- OUTSIDE RECORDS SUMMARY | 2024-08-26 05:52 | XMS_ITS | Encounter Summary ---
Author Organization [facility] Address [address] [place] [address] Care Team Providers Care Jump Roll Operator Name Role Phone Nolberto Humphrey Primary Care Provider [phone] Reason for Visit * Cardiology (Routine) - Closed Specialty Diagnoses / Procedures Referred By Contac t Referred To Contact Diagnoses Pericardial effusion Procedures Transthoracic Echo Complete W Doppler/CF Tonny Wheatley NP [address] [facility] [address] [address] Phone: tel: fax: [facility] Referral ID Status Reason Start Date Expiration Date Visits Re quested Visits Authorized [id number] Closed 11/10/2021 12/10/2022 1 1 Encounter Details Date Type Department Care Team (Latest Contact Info) Description 12/11/2021 2:00 PM CDT Ancillary Procedure [facility] Medical [facility] Cardiology [address] [phone] Pericardial effusion Social History Tobacco Use Types Packs/Day Years Used Date Smoking Tobacco: Former Smokeless Tobacco: Never Alcohol Use Standard Drinks/Week Comments Yes 0 (1 standard drink = 0.6 oz pur e alcohol) Sex and Gender Information Value Date Recorded Sex Assigned at Not on file Legal Sex Male 2:20 PM INVOICE CLASSIFICATION CLERK Gender Identity Not on file Sexual Orientation Straight 07/05/2021 1: 06 PM CDT documented as of this encounter Plan of Treatment Not on file documented as of this encounter Procedures Procedure Name Priority Date/Time Associated Diagnosis Comments TRANSTHORACIC ECHO (TTE) COMPLETE W DOPPLER/CF WO CONTRAST Routine 12/11/2021 2:35 PM CDT Pericardial effusion documented in this encounter Results * TRANSTHORACIC ECHO (TTE) COMPLETE W DOPPLER/CF WO CONTRAST (12/11/2021 2:35 PM CDT) Anatomical Region Laterality Modality Ultrasound 12/11/2021 1:4 8 PM CDT Narrative 12/11/2021 3:53 PM CDT [facility] Cardiology [address], [place] [address] [address], [place] [address] P:[phone] P:[phone] Echocardiographic Report Patient Name: OLAF NEWELL : 1945 Study Date: 12/11/2021 1:48:18 PM Gender: M Tech: Location: [place] Ref.Provider: TONNY WHEATLEY Height(Cm): 183 BSA: 2.25 [...] Findings: Interpretation Site: Exam was interpreted at [facility]. Left Ventricle: Normal left ventricular systolic function. [...] Procedure Note Colby Winters MD - 12/11/2021 [facility] Cardiology [address], [place] [address] [address], [place] [address] P:[phone] P:[phone] Echocardiographic Report Patient Name: OLAF NEWELLPatient ID: [id number] : [id number] Date: 12/11/2021 1:48:18 PM Gender: MAccession #: [id number] Tech: GMLocation: [place] Ref.Provider: TONNY WHEATLEYHeight(Cm): 183 BSA: 2.25Weight(Kg): 102.97 [...] 16.00 - 28.00 ] cc/m2 MV Decel [id number] [ 150 - 200 ] msec ACS MM 2.30 cm PV Peak Vel0.96 [ 0.40 - 0.80 ] m/s TR Peak Vel2.11 [ 0.40 - 0.80 ] m/s TR Peak PG 18mmHg RVSP26.00 mmHg E'0.10 E/E' 6 Findings: Interpretation Site: Exam was interpreted at [facility]. Left Ventricle: Normal left ventricular systolic function. [...] Winters MD 2021-12-11 15:53:03 CDT Tonny Wheatley NP CV ECHO PROCEDURES Final Res ult documented in this encounter Visit Diagnoses Diagnosis Pericardial effusion Unspecified disease of pericardium documented in this encounter Care Teams Jump Roll Operator Relationship Specialty Start Date End Date Nolberto Humphrey DO PCP - General Internal Medicine 05/03/21 11/19/22 documented as of this encounter
--- OUTSIDE RECORDS SUMMARY | 2024-08-26 05:52 | XMS_ITS | Encounter Summary ---
Author Organization [facility] Address [address] [place] [address] Care Team Providers Care Emergency Medical Service Coordinator Name Role Phone Ciaran Rizo MD Primary Care Provider [phone] Reason for Visit * Cardiology (Routine) - Closed Specialty Diagnoses / Procedures Referred By Contac t Referred To Contact Diagnoses History of coronary artery stent placement Other forms of angina pectoris (HCC) Procedures Stress Echo Exercise W Doppler/CF Efren Sawyer MD [address] [address] Phone: tel: fax: [facility] Referral ID Status Reason Start Date Expiration Date Visits Re quested Visits Authorized [id number] Closed 05/21/2023 06/19/2024 1 1 Encounter Details Date Type Department Care Team (Latest Contact Info) Description 05/28/2023 11:15 AM CDT Ancillary Procedure [facility] Medical [facility] Cardiology [address] [place] [phone] History of coronary artery stent placement; Other forms of angina pectoris (HCC) Social History Tobacco Use Types Packs/Day Years Used Date Smoking Tobacco: Former Smokeless Tobacco: Never Alcohol Use Standard Drinks/Week Comments Yes 0 (1 standard drink = 0.6 oz pur e alcohol) Sex and Gender Information Value Date Recorded Sex Assigned at Not on file Legal Sex Male 2:20 PM VOLCANOLOGIST Gender Identity Not on file Sexual Orientation Straight 07/05/2021 1: 06 PM CDT documented as of this encounter Plan of Treatment Not on file documented as of this encounter Procedures Procedure Name Priority Date/Time Associated Diagnosis Comments STRESS ECHO EXERCISE WO DOPPLER/CF WO CONTRAST Routine 05/28/2023 12:28 PM CDT History of coronary artery stent placement Other forms of angina pectoris (HCC) documented in this encounter Results * STRESS ECHO EXERCISE WO DOPPLER/CF WO CONTRAST (05/28/2023 12:28 PM CDT) Anatomical Region Laterality Modality Ultrasound 05/28/2023 11:4 3 AM CDT Narrative 05/28/2023 5:[address] [facility] Cardiology [address], [place] [address] [address], [place] [address] P:[phone] P:[phone] Echocardiographic Report Patient Name: OLAF NEWELL JO : 1945 Study Date: 05/28/2023 11:43:07 AM Gender: M Tech: Location: [place] Ref.Provider: EFREN SAWYER Height(Cm): 183 BSA: 2.42 Weight(Kg): 114.8 Heart Rate: 63 Quality: Good Order Provider: EFREN SAWYER Procedures: Stress Echo Report: Treadmill stress echocardiogram. Indications: Angina, Coronary Artery Disease, Medications: Outpatient Medications aspirin 81 mg enteric coated tablet TAKE 1 TABLET BY MOUTH EVERY DAY Dispense: 90 tablet, Refills: 3 ordered 01/07/2023 clopidogreL (PLAVIX) 75 mg tablet TAKE 1 TABLET BY MOUTH EVERY DAY IN THE MORNING Dispense: 90 tablet, Refills: 1 ordered 01/17/2023 dilTIAZem XR 240 mg 24 hr capsule TAKE 1 CAPSULE BY MOUTH EVERY MORNING Dispense: 90 capsule, Refills: 1 ordered 05/16/2023 LEIGH metoprolol XL (TOPROL-XL) 50 mg extended release tablet TAKE 1 TABLET BY MOUTH EVERY DAY IN THE MORNING Dispense: 90 tablet, Refills: 1 ordered 07/25/2022 Patient not taking. Reported on 11/20/2022 rOPINIRole (REQUIP) 1 mg tablet Take 1 tablet (1 mg total) by mouth nightly 02/13/2022 rosuvastatin (CRESTOR) 10 mg tablet TAKE 1 TABLET BY MOUTH EVERY DAY IN THE MORNING Dispense: 90 tablet, Refills: 1 ordered 01/31/2023, and Stress test monitored by: Sandy Ying. Findings: Stress Echo: Protocol - [place] Protocol. Exercise Time - 6.21 min. Baseline Heart Rate - 67. Peak Heart Rate - 142. Predicted Maximal Heart Rate - 144. 85% MPHR - 122. Baseline BP - 140/74. Peak BP - 180/64. Rate Pressure Product - 96805. METS Achieved - 7.00. Percent Predicted Maximal HR Achieved - 99 %. Interpretation Site: Exam was interpreted at [facility]. Performance: Average exercise functional capacity. Hemodynamic Response: Normal blood pressure response. Arrhythmia: No exercise induced arrhythmias. Termination: Limiting Dyspnea. Resting ECG: Normal EKG. Exercise ECG: Normal exercise ECG. Resting LV Function: Normal left ventricular size, normal systolic function, normal wall thickness with no segmental wall motion abnormalities at rest. Post Stress LV Function: Post exercise left ventricular global systolic contractility is hyperdynamic, no segmental wall motion abnormalities, and chamber size is smaller. Conclusions: Protocol - Catr[place]ito Protocol. Exercise Time - 6.21 min. Baseline Heart Rate - 67. Peak Heart Rate - 142. Predicted Maximal Heart Rate - 144. 85% MPHR - 122. Baseline BP - 140/74. Peak BP - 180/64. Rate Pressure Product - 35294. METS Achieved - 7.00. Percent Predicted Maximal HR Achieved - 99 %. Normal EKG. Normal exercise ECG. Normal left ventricular size, normal systolic function, normal wall thickness with no segmental wall motion abnormalities at rest. Post exercise left ventricular global systolic contractility is hyperdynamic, no segmental wall motion abnormalities, and chamber size is smaller. Stress echocardiogram negative for inducible ischemia at MPHR: 99 %. Electronically Signed By: Efren Sawyer MD, [facility] 2023-05-28 17:10:05 CDT CC: CC: Procedure Note Efren Sawyer MD - 05/28/2023 [facility] Cardiology [address], [place] [address] [address] [facility] [address] [facility] [address], [place] [address] P:[phone] P:[phone] Echocardiographic Report Patient Name: OLAF NEWELL JOPatient ID: [id number] : [id number] Date: 05/28/2023 11:43:07 AM Gender: Raeganion #: [id number] [facility] [place] Ref.Provider: Rafi SAWYERight(Cm): 183 BSA: 2.42Weight(Kg): 114.8 Heart Rate: 63Quality: Good Order Provider: EFREN SAWYER Procedures: Stress Echo Report: Treadmill stress echocardiogram. Indications: Angina, Coronary Artery Disease, Medications: Outpatient Medications aspirin 81 mg enteric coated tablet TAKE 1 TABLET BY MOUTH EVERY DAY Dispense: 90 tablet, Refills: 3 ordered 01/07/2023 clopidogreL (PLAVIX) 75 mg tablet TAKE 1 TABLET BY MOUTH EVERY DAY IN THE MORNING Dispense: 90 tablet,Refills: 1 ordered 01/17/2023 dilTIAZem XR 240 mg 24 hr capsule TAKE 1 CAPSULE BY MOUTH EVERY MORNING Dispense: 90 capsule, Refills: 1ordered 05/16/2023 LEIGH metoprolol XL (TOPROL-XL) 50 mg extended release tablet TAKE 1 TABLET BY MOUTH EVERY DAY IN THE MORNING Dispense: 90 tablet,Refills: 1 ordered 07/25/2022 Patient not taking. Reported on 11/20/2022 rOPINIRole (REQUIP) 1 mg tablet Take 1 tablet (1 mg total) by mouth nightly 02/13/2022 rosuvastatin (CRESTOR) 10 mg tablet TAKE 1 TABLET BY MOUTH EVERY DAY IN THE MORNING Dispense: 90 tablet,Refills: 1 ordered 01/31/2023, and Stress test monitored by: Sandy Ying. Findings: Stress Echo: Protocol - Catrachito Protocol. Exercise Time - 6.21 min. Baseline Heart Rate -67. Peak Heart Rate - 142. Predicted Maximal Heart Rate - 144. 85% MPHR - 122. BaselineBP - 140/74. Peak BP - 180/64. Rate Pressure Product - 46867. METS Achieved - 7.00.Percent Predicted Maximal HR Achieved - 99 %. Interpretation Site: Exam was interpreted at [facility]. Performance: Average exercise functional capacity. Hemodynamic Response: Normal blood pressure response. Arrhythmia: No exercise induced arrhythmias. Termination: Limiting Dyspnea. Resting ECG: Normal EKG. Exercise ECG: Normal exercise ECG. Resting LV Function: Normal left ventricular size, normal systolic function, normal wallthickness with no segmental wall motion abnormalities at rest. Post Stress LV Function: Post exercise left ventricular global systolic contractility ishyperdynamic, no segmental wall motion abnormalities, and chamber size is smaller. Conclusions: Protocol - Catrachito Protocol. Exercise Time - 6.21 min. Baseline Heart Rate -67. Peak Heart Rate - 142. Predicted Maximal Heart Rate - 144. 85% MPHR - 122. BaselineBP - 140/74. Peak BP - 180/64. Rate Pressure Product - 48595. METS Achieved - 7.00.Percent Predicted Maximal HR Achieved - 99 %. Normal EKG. Normal exercise ECG. Normal left ventricular size, normal systolic function, normal wallthickness with no segmental wall motion abnormalities at rest. Post exercise left ventricular global systolic contractility ishyperdynamic, no segmental wall motion abnormalities, and chamber size is smaller. Stress echocardiogram negative for inducible ischemia at MPHR: 99 %. Electronically Signed By: Efren Sawyer MD, [facility] 2023-05-28 17:10:05 CDT CC: CC: Efren Sawyer MD CV ECHO PROCEDURES Final Result documented in this encounter Visit Diagnoses Diagnosis History of coronary artery stent placement Other forms of angina pectoris (HCC) documented in this encounter Care Teams Emergency Medical Service Coordinator Relationship Specialty Start Date End Date Ciaran Rizo MD PCP - General Family Practice 05/21/23 documented as of this encounter
--- OUTSIDE RECORDS SUMMARY | 2024-08-26 05:52 | XMS_ITS | Encounter Summary ---
Author Organization [facility] Address [address] [place] [address] Care Team Providers Care Engine Monitor Name Role Phone Nolberto Humphrey DO Primary Care Provider [phone] Encounter Details Date Type Department Care Team (Late st Contact Info) Description 12/22/2021 Orders Only [facility] Cardiology [address] [place] [address] Colby Winters MD [address] [id number] Social History Tobacco Use Types Packs/Day Years Used Date Smoking Tobacco: Former Smokeless Tobacco: Never Alcohol Use Standard Drinks/Week Comments Yes 0 (1 standard drink = 0.6 oz pur e alcohol) Sex and Gender Information Value Date Recorded Sex Assigned at Not on file Legal Sex Male 2:20 PM 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 Gender Identity Not on file Sexual Orientation Straight 07/05/2021 1: 06 PM CDT documented as of this encounter Plan of Treatment Not on file documented as of this encounter Procedures Procedure Name Priority Date/Time Associated Diagnosis Comments CARDIOLOGY DOCUMENT SCAN Routine 12/22/2021 documented in this encounter Results * Cardiology Document Scan (12/22/2021) Anatomical Region Laterality Modality Other Gwen Alaln NP CV CARDIAC SERVICES PROCEDUR ES Final Result documented in this encounter Visit Diagnoses Not on filedocumented in this encounter Care Teams Engine Monitor Relationship Specialty Start Date End Date Nolberto Humphrey DO PCP - General Internal Medicine 05/03/21 11/19/22 documented as of this encounter
--- OUTSIDE RECORDS SUMMARY | 2024-08-26 05:52 | XMS_ITS | Encounter Summary ---
Author Organization [facility] Address [address] [place] [address] Care Team Providers Care Furnace Helper Name Role Phone Nolberto Humphrey DO Primary Care Provider [phone] Encounter Details Date Type Department Care Team (Late st Contact Info) Description 12/19/2021 Orders Only [facility] Cardiology [address] [place] [address] Colby Winters MD [address] [id number] Social History Tobacco Use Types Packs/Day Years Used Date Smoking Tobacco: Former Smokeless Tobacco: Never Alcohol Use Standard Drinks/Week Comments Yes 0 (1 standard drink = 0.6 oz pur e alcohol) Sex and Gender Information Value Date Recorded Sex Assigned at Not on file Legal Sex Male 2:20 PM J2EE DEVELOPER Gender Identity Not on file Sexual Orientation Straight 07/05/2021 1: 06 PM CDT documented as of this encounter Plan of Treatment Not on file documented as of this encounter Procedures Procedure Name Priority Date/Time Associated Diagnosis Comments CARDIOLOGY DOCUMENT SCAN Routine 12/19/2021 documented in this encounter Results * SCAN - CARDIOLOGY (12/19/2021) Anatomical Region Laterality Modality Other us Colby Winters MD CV CARDIAC SERVICES ESTUARDO REYEZ Final Result documented in this encounter Visit Diagnoses Not on filedocumented in this encounter Care Teams Furnace Helper Relationship Specialty Start Date End Date Nolberto Humphrey DO PCP - General Internal Medicine 05/03/21 11/19/22 documented as of this encounter
--- OUTSIDE RECORDS SUMMARY | 2024-08-26 05:52 | XMS_ITS | Encounter Summary ---
Author Organization [facility] Address [address] [place] [address] Care Team Providers Care Mobility Scooter Repairer Name Role Phone Nolberto Humphrey DO Primary Care Provider [phone] Reason for Visit * Reason Onset Date Comments Cardiac Rehab Final f/u 10/09/2021 Encounter Details Date Type Department Care Team (Late st Contact Info) Description 10/09/2021 Telephone [facility] Case Management [facility] [place] [address] Michele Barba EP-C Cardiac Rehab Final f/u Social History Tobacco Use Types Packs/Day Years Used Date Smoking Tobacco: Former Smokeless Tobacco: Never Alcohol Use Standard Drinks/Week Comments Yes 0 (1 standard drink = 0.6 oz pur e alcohol) Sex and Gender Information Value Date Recorded Sex Assigned at Not on file Legal Sex Male 2:20 PM SILVICULTURE TEACHER Gender Identity Not on file Sexual Orientation Straight 07/05/2021 1: 06 PM CDT documented as of this encounter Miscellaneous Notes * Telephone Encounter - Michele Barba EP-C - 10/23/2021 11:54 AM SILVICULTURE TEACHER Called pt to ask Cardiac Rehab Navigator f/u questions. No answer. LMOR x 2 with name, department and office phone number. ICULTURE TEACHER * Telephone Encounter - Michele Barba EP-C - 10/09/2021 2:17 PM CST Called pt to ask Cardiac Rehab Navigator 90-day f/u questions. No answer. LMOR x 1 name, departmentand office phone number. Will plan to call again at a later date if pt does not return call. ICULTURE TEACHER documented in this encounter Plan of Treatment Not on file documented as of this encounter Visit Diagnoses Not on filedocumented in this encounter Care Teams Mobility Scooter Repairer Relationship Specialty Start Date End Date Nolberto Humphrey DO PCP - General Internal Medicine 05/03/21 11/19/22 documented as of this encounter
--- OUTSIDE RECORDS SUMMARY | 2024-08-26 05:52 | XMS_ITS | Encounter Summary ---
Author Organization [facility] Address [address] [place] [address] Care Team Providers Care Supervisor Roller Shop Name Role Phone Nolberto Humphrey DO Primary Care Provider [phone] Encounter Details Date Type Department Care Team (Late st Contact Info) Description 12/15/2021 Telephone [facility] Cardiology [address] [place] [address] Gwen Allan, BREE [address] [place], [place] [id number] Social History Tobacco Use Types Packs/Day Years Used Date Smoking Tobacco: Former Smokeless Tobacco: Never Alcohol Use Standard Drinks/Week Comments Yes 0 (1 standard drink = 0.6 oz pur e alcohol) Sex and Gender Information Value Date Recorded Sex Assigned at Not on file 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 Called pt and reviewed information with him-he said he will report to ED. Will notify ED charge and CK that he will be coming. * Telephone Encounter - Sandy Ying RN - 12/18/2021 11:04 AM CDT Spoke with pt, he rechecked his BP 234/82 HR 73. Pt said he isnt feeling that bad and doesn't thinkhe needs to go to the ED. Pt said his CP is only 2/10 at times and is no where near what it was when he went to the ED last time. Told pt I would discuss with CK and call him back. * Telephone Encounter - Sandy Ying RN - 12/18/2021 9:38 AM CDT Spoke with pt-reviewed message from CK-pt verbalized understanding. Pt said he has been having CP and SOB on and off. The CP feels like some burning and congestion at times and goes away with rest. Pt has SOB when he is going up and down the stairs and it goes away with rest-he has been limiting some of his activities because of it. Per pulse oximeter oxygen 98% and HR 82-pt said he is normally 65 HR. Pt hasnt been checking his BP but checked it on the phone while we were talking- 244/125-pt said it doesn't run high normally and he hasnt taken his morning meds yet today-instructed pt to take his meds and I would call him back in an hour to recheck it. Informed him if it is still high hemay need to go to the ED. * Telephone Encounter - Sandy Ying RN - 12/15/2021 3:21 PM CDT LM on requesting callback to discuss echo results from CK. * Telephone Encounter - Sandy Ying RN - 12/15/2021 12:57 PM CDT Message sent from CK: Please call patient with echo results. ??His EF was normal, grade I diastolic dysfunction (impaired ability of the heart to relax). ??He does have a small-moderate pericardial effusion with elevated RA pressure and evidence of increased pericardial pressure. ??This is new from his echo in the hospital that was read as a small pericardial effusion. ??Please ask him if he is having any chest pain or shortness of breath. ??Please also ask him to check his blood pressure and call us if he has any hypotension (not sure of his baseline BP, but would probably start to be concerned if he is having persistent SBP readings less than 100 mmHg. ??Please also ask that he check hispulse and call with tachycardia. ??He does have an appointment with Dr. Sawyer next . Thanks so much Called pt and LM on VM reviewing message and requested callback to further discuss message. documented in this encounter Plan of Treatment Not on file documented as of this encounter Visit Diagnoses Not on filedocumented in this encounter Care Teams Supervisor Roller Shop Relationship Specialty Start Date End Date Nolberto Humphrey DO PCP - General Internal Medicine 05/03/21 11/19/22 documented as of this encounter
--- OUTSIDE RECORDS SUMMARY | 2024-08-26 05:52 | XMS_ITS | Encounter Summary ---
Author Organization [facility] Address [address] [place] [address] Care Team Providers Care Production Operations Manager Name Role Phone Nolberto Humphrey DO Primary Care Provider [phone] Reason for Visit * Reason Comments SVT Encounter Details Date Type Department Care Team (Late st Contact Info) Description 09/12/2021 1:15 PM OUTSIDE FOOD SERVER Office Visit Arrhythmia Center [address] [place] [address] Roe Nguyen III, MD [address], [place] [address] SVT (supraventricular tachycardia) (CMS/HCC) (HCC) (Primary Dx); Atrial fibrillation, unspecified type (HCC) Social History Tobacco Use Types Packs/Day Years Used Date Smoking Tobacco: Former Smokeless Tobacco: Never Alcohol Use Standard Drinks/Week Comments Yes 0 (1 standard drink = 0.6 oz pur e alcohol) Sex and Gender Information Value Date Recorded Sex Assigned at Not on file Legal Sex Male 2:20 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 FOOD SERVER Gender Identity Not on file Sexual Orientation Straight 07/05/2021 1 :06 PM CDT documented as of this encounter Last Filed Vital Signs Vital Sign Reading Time Taken Comments Blood Pressure 130/76 09/12/2021 12:47 PM OUTSIDE FOOD SERVER Pulse 65 09/12/2021 12:47 PM OUTSIDE FOOD SERVER Temperature - - Respiratory Rate 16 09/12/2021 12:47 PM OUTSIDE FOOD SERVER Oxygen Saturation - - Inhaled Oxygen Concentration - - Weight 103 kg (227 lb) 09/12/2021 12:47 PM OUTSIDE FOOD SERVER Height 182.9 cm (6') 09/12/2021 12:47 PM OUTSIDE FOOD SERVER Body Mass Index 30.79 09/12/2021 12:47 PM OUTSIDE FOOD SERVER documented in this encounter Progress Notes * Roe Nguyen III, MD - 09/12/2021 1:15 PM CST Images from the original note were not included. Established Patient Note- [facility] Arrhythmia Center [facility] Arrhythmia Center [address] [place] [address], [address] [place] [address] This note was dictated with voice-recognition software, and film recordist errors may be present. Subjective/Objective Patient ID: Olaf Croft is a 75 y.o. male Chief Complaint SVT I had the pleasure of seeing Olaf Croft in consultation at [facility] Arrhythmia Center at [facility] for follow-up of SVT . As you know, he is a 75 y.o. male with the following arrhythmia-specific history: ??? Supraventricular tachycardia. Documented while hospitalized after PCI 07/2021 ??? Atrial fibrillation, paroxysmal. Noted while hospitalized, along with SVT, after PCI 07/2021. ??? Coronary artery disease. o S/p PCI to PDA (RADIO STATION ENGINEER), LAD, RPVB (all CESAR) 07/11/21 ??? Relevant comorbidities: o Hypertension o Obstructive sleep apnea Mr. Croft returns for f/u after hospitalization for PCI, during which he was found to have SVT and AF. Since discharge, he has continued to feel intermittent tachy palpitations. He feels he is episode on an almost daily basis. He feels abrupt onset racing artery fluttering in his chest. These episodes are almost always self terminating. The longest episode he had occurred while in the hospital.He has not had syncope associated with these events. Past Medical History Past Medical History: Diagnosis Date ??? Adiposity Obesity ??? Hyperlipidemia ??? Hypertension ??? Sleep apnea 2011 - cpap therapy Past Surgical History Past Surgical History: Procedure Laterality Date ??? CARDIAC CATHETERIZATION ??? CATARACT EXTRACTION 2019 - both eyes Medications Current Outpatient Medications: ??? apixaban (ELIQUIS) 5 [...] EVERY MORNING, Disp: 30 tablet, Rfl: 5 Allergies No Known Allergies Family History Family History Problem Relation Age of Onset ??? Coronary artery disease Father Coronary Artery Bypass Graft; ??? Other Father Valve Replacement; ??? Heart attack Father Myocardial Infarction; Cause of : Myocardial Infarction Social History Social History Socioeconomic History ??? Marital status: Spouse name: Not on file ??? Number of children: Not on file ??? Years of education: Not on file ??? Highest education level: Not on file Occupational History ??? Not on file Tobacco Use ??? Smoking status: Former Smoker ??? Smokeless tobacco: Never Used Substance and Sexual Activity ??? Alcohol use: Yes ??? Drug use: No ??? Sexual activity: Not on file Other Topics Concern ??? Not on file Social History Narrative ??? Not on file Social Determinants of Health Financial Resource Strain: Not on file Food Insecurity: Not on file Transportation Needs: Not on file Physical Activity: Not on file Stress: Not on file Social Connections: Not on file Intimate Partner Violence: Not on file Housing Stability: Not on file Review of Systems Constitutional: Negative for new fatigue or malaise. Respiratory: Negative for worsening dyspnea or cough. Cardiovascular: Negative chest pain, palpitations, syncope. Objective Vitals: 09/12/21 1247 BP: 130/76 BP Location: Left arm Patient Position: Sitting Pulse: 65 Resp: 16 Weight: 103 kg (227 lb) Height: 182.9 cm (6') General: No acute distress. Pulmonary: Clear to auscultation bilaterally. Cardiovascular: Regular rate/rhythm. No murmurs/rubs. No JVD or lower extremity edema. Diagnostic Data ECG performed today and reviewed personally reveals normal sinus rhythm. Normal QRS. Normal axis. No preexcitation. Labs Creatinine Date Value Ref Range Status 07/13/2021 1.05 0.80 - 1.30 mg/dL Final , Plt Date Value Ref Range Status 07/12/2021 201 150 - 400 K/cumm Final , WBC Date Value Ref Range Status 07/12/2021 12.7 (H) 3.8 - 9.9 K/cumm Final , Hgb Date Value Ref Range Status 07/12/2021 12.5 (L) 13.0 - 17.5 g/dL Final Transthoracic echocardiogram 07/12/21 reviewed. Normal LV size/function. LVEF 65%. ECG 07/12/21 personally interpreted. Regular NCT at 180 bpm, consistent with SVT. 30 day ambulatory monitor 07/13/21 personally interpreted. Sinus rhythm predominates. Frequent episodes of supraventricular tachycardia. Atrial fibrillation is also documented. The estimated atrial fibrillation burden as reported appears to overestimate the actual burden. Supraventricular tachycardia occurs frequently and is mislabeled as atrial fibrillation at times. Ventricular rates during atrial fibrillation are rapid. Impression and Plan Diagnoses and all orders for this visit: SVT (supraventricular tachycardia) (CMS/HCC) (HCC) (Primary) Assessment & Plan: Recurrent, symptomatic, drug-refractory SVT. Possibly triggering AF. [...] metoprolol for 5 days prior to procedure. Orders: - ECG 12 lead - Basic metabolic panel; Future - CBC with auto differential; Future - COVID-19 CORONAVIRUS RNA (OUTSIDE LABS) Nasal; Future Atrial fibrillation, unspecified type ([facility]) Assessment & Plan: Infrequent AF episodes seen on ambulatory monitoring and in hospital. [place] unclear, but appears to be overestimated by ambulatory monitor (confused with SVT). Suspect AF may be triggered primarily by SVT. Would recommend starting with SVT ablation and implantation of an ILR for AF surveillance. If symptomatic AF returns, AF ablation or antiarrhythmic drugscan be considered. [id number] = 3. Anticoagulation is reasonable for now, and decisions regarding need for long- term anticoagulation can be guided by ILR surveillance data. --Continue apixaban 5 mg PO BID. Hold starting 2 days prior to EPS/SVT ablation. --ILR implantation at time of SVT ablation. --ILR data to guide need for assisted anticoagulation. F/u after procedure It was my pleasure to see Olaf Croft today in the office. Please do not hesitate to contact me with any questions or concerns regarding care. Sincerely, Roe Nguyen III, M.D. Cardiac Electrophysiology [facility] Arrhythmia Center [facility] IDE FOOD SERVER documented in this encounter Miscellaneous Notes * Assessment & Plan Note - Reo Nguyen III, MD - 09/12/2021 4:26 PM CSTAssociated Problem(s): Atrial fibrillation (CMS/HCC) (HCC) (Resolved 01/04/2022) Infrequent AF episodes seen on ambulatory monitoring and in hospital. [place] unclear, but appears to be overestimated by ambulatory monitor (confused with SVT). Suspect AF may be triggered primarily by SVT. Would recommend starting with SVT ablation and implantation of an ILR for AF surveillance. If symptomatic AF returns, AF ablation or antiarrhythmic drugscan be considered. [id number] = 3. Anticoagulation is reasonable for now, and decisions regarding need for long- term anticoagulation can be guided by ILR surveillance data. --Continue apixaban 5 mg PO BID. Hold starting 2 days prior to EPS/SVT ablation. --ILR implantation at time of SVT ablation. --ILR data to guide need for tank terminal gauger anticoagulation. IDE FOOD SERVER IDE FOOD SERVER * Assessment & Plan Note - Roe Nguyen III, MD - 09/12/2021 4:25 PM CSTAssociated Problem(s): SVT (supraventricular tachycardia) ([facility]) Recurrent, symptomatic, drug-refractory SVT. Possibly triggering AF. [...] metoprolol for 5 days prior to procedure. IDE FOOD SERVER IDE FOOD SERVER documented in this encounter Plan of Treatment Scheduled Orders Name Type Priority Associated Diagnoses Orde r Schedule Basic metabolic panel Lab Routine SVT (supraventricular tachycardia) ([facility]/HCC) ([facility]) Expected: 09/12/2021, Expires: 09/12/2022 CBC with auto differential Lab Routine SVT (supraventricular tachycardia) ([facility]/HCC) ([facility]) Expected: 09/12/2021, Expires: 09/12/2022 COVID-19 CORONAVIRUS RNA ([facility]) Nasal Microbiology Routine SVT (supraventricular tachycardia) ([facility]/HCC) ([facility]) Expected: 10/28/2021, Expires: 09/12/2022 documented as of this encounter Procedures Procedure Name Priority Date/Time Associated Diagnosis Comments ECG 12-LEAD Routine 09/12/2021 SVT (supraventricular tachycardia) ([facility]/HCC) ([facility]) documented in this encounter Results * ECG 12 lead (09/12/2021) Roe Nguyen III, MD ECG ORDERABLES Fin al Result documented in this encounter Visit Diagnoses Diagnosis SVT (supraventricular tachycardia) ([facility])- Primary Other specified cardiac dysrhythmias Atrial fibrillation, unspecified type (HCC) documented in this encounter Discontinued Medications Medication Sig Discontinue Reason Start Date End Da te gabapentin (NEURONTIN) 100 mg capsule Take 200 mg by mouth daily Discontinued by another clinician 09/12/2021 documented as of this encounter Care Teams Production Operations Manager Relationship Specialty Start Date End Date Nolberto Humphrey DO PCP - General Internal Medicine 05/03/21 11/19/22 documented as of this encounter
--- OUTSIDE RECORDS SUMMARY | 2024-08-26 05:52 | XMS_ITS | Encounter Summary ---
Author Organization [facility] Address [address] [place] [address] Care Team Providers Care Taxicab Dispatcher Name Role Phone Ciaran Rizo MD Primary Care Provider [phone] [phone] Reason for Referral * Cardiology (Routine) - Closed Specialty Diagnoses / Procedures Referred By Contac t Referred To Contact Diagnoses History of coronary artery stent placement Other forms of angina pectoris (HCC) Procedures Stress Echo Exercise W Doppler/CF Efren Sawyer MD [address] [address] Phone: tel: fax: [facility] Referral ID Status Reason Start Date Expiration Date Visits Re quested Visits Authorized [id number] Closed 05/21/2023 06/19/2024 1 1 Reason for Visit * Reason Comments Follow-up 6 mo f/u. Numbness i n feet that started 3 months ago. Coronary Artery Disease Atrial Fibrillation Chest Pain C/o chest tightness x 2 weeks * Consultation (Routine) - Closed Specialty Diagnoses / Procedures Referred By Contac t Referred To Contact Cardiology Diagnoses SVT (supraventricular tachycardia) (HCC) Atherosclerotic heart disease of [place] coronary artery with other forms of angina pectoris (HCC) Leatha Silvestre MD Phone: tel: fax: [facility] Cardiology [address] [place] [address] Phone: tel: fax: Referral ID Status Reason Start Date Expiration Date V isits Requested Visits Authorized [id number] Closed Specialty Services Required 11/20/2022 05/23/2023 6 6 Encounter Details Date Type Department Care Team (Late st Contact Info) Description 05/21/2023 10:00 AM CDT Office Visit [facility] Cardiology [address] [place] [address] Efren Sawyer MD [address] [place] [address] SVT (supraventricular tachycardia) (CMS/HCC) (HCC) (Primary Dx); History of coronary artery stent placement; Other forms of angina pectoris (HCC) Social History Tobacco Use Types Packs/Day Years Used Date Smoking Tobacco: Former Smokeless Tobacco: Never Alcohol Use Standard Drinks/Week Comments Yes 0 (1 standard drink = 0.6 oz pur e alcohol) Sex and Gender Information Value Date Recorded Sex Assigned at Not on file 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 Gender Identity Not on file Sexual Orientation Straight 07/05/2021 1: 06 PM CDT documented as of this encounter Last Filed Vital Signs Vital Sign Reading Time Taken Comments Blood Pressure 134/60 05/21/2023 9:50 AM CDT Pulse 76 05/21/2023 9:50 AM CDT Temperature - - Respiratory Rate - - Oxygen Saturation 97% 05/21/2023 9:50 AM CDT Inhaled Oxygen Concentration - - Weight 114.8 kg (253 lb) 05/21/2023 9:50 AM CDT Height 182.9 cm (6') 05/21/2023 9:50 AM CDT Body Mass Index 34.31 05/21/2023 9:50 AM CDT documented in this encounter Progress Notes * Efren Sawyer MD - 05/21/2023 10:00 AM CDT [facility] 05/21/2023 Olaf Newell is a 77 y.o. male who presents for follow up [...] for an angiogram. Angiography done here at [facility] demonstrated a high-grade disease in theLAD proximally and in the midportion. It was a heavily calcified vessel. 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 He was referred to [place] to [facility] to see Dr. Silva. He underwent higher risk PCI involving stenting of the proximal into the mid LAD as well as PACKING MACHINE FEEDER intervention of the RPDA. At the time of catheterization is left ventricular systolic function was normal. Following that intervention the patient developed a clinical picture of pericarditis was hospit alized a couple of times at [facility]. He did have a small pericardial effusion with that. He did have some tachy arrhythmias during that hospitalization which were initially interpreted as atrial fibrillation but I taught financial service representative pre episodes of SVT. He did have an event monitor done after this which did not show any evidence of atrial fibrillation either. He returns today to the office for scheduled follow-up appointment. He seems to be doing well and has no exertional symptoms he then went onto report recently he has had several episodes of nonexertional chest tightness that is somewhat reminiscent of his previous symptomatology. Twelve lead electrocardiogram in the chart shows sinus rhythm with some mild nonspecific T-wave abnormalities. REVIEW OF SYSTEMS General ROS: negative for [...] tablet, TAKE 1 TABLET BY MOUTH EVERY DAY, Disp: 90 tablet, Rfl: 3 clopidogreL (PLAVIX) 75 mg tablet, TAKE 1 TABLET BY MOUTH EVERY DAY IN THE MORNING, Disp: 90 tablet, Rfl: 1 dilTIAZem XR 240 mg 24 hr capsule, TAKE 1 CAPSULE BY MOUTH EVERY MORNING, Disp: 90 capsule, Rfl: 1 rOPINIRole [...] for component: LABALBU PHYSICAL EXAM Vitals BP 134/60 (BP Location: Left arm, Patient Position: Sitting) Pulse 76 Ht 182.9 cm (6') Wt 114.8 kg (253 lb) SpO2 97% BMI 34.31 kg/m?? Physical Examination: General appearance - alert, [...] noted ASSESSMENT Olaf was seen today for follow-up, coronary artery disease, atrial fibrillation and chest pain. Diagnoses and all orders for this visit: SVT (supraventricular tachycardia) (CMS/HCC) (HCC) PLAN/RECOMMENDATIONS No change in medical regimen Arrange for stress echocardiography on an upcoming day when I am in the office because of these symptoms especially given the complex nature of his PCI 2 years ago. Efren Sawyer MD documented in this encounter Miscellaneous Notes * Addendum Note - Len Mcknight MA - 05/21/2023 10:00 AM CDTAddended by: LEN MCKNIGHT on: 05/21/2023 01:23 PM Modules accepted: Orders documented in this encounter Plan of Treatment Not on file documented as of this encounter Procedures Procedure Name Priority Date/Time Associated Diagnosis Comments ECG 12-LEAD Routine 05/21/2023 SVT (supraventricular tachycardia) (CMS/HCC) (HCC) documented in this encounter Results * STRESS ECHO EXERCISE WO DOPPLER/CF WO CONTRAST (05/28/2023 12:28 PM CDT) Anatomical Region Laterality Modality Ultrasound 05/28/2023 11:4 3 AM CDT Narrative 05/28/2023 5:10 PM CDT [facility] Cardiology [address], [place] [address] [address], [place] [address] P:[phone] P:[phone] Echocardiographic Report Patient Name: OLAF NEWELL JO : 1945 Study Date: 05/28/2023 11:43:07 AM Gender: M Tech: LUCILLE Location: [place] Ref.Provider: EFREN SAWYER Height(Cm): 183 BSA: 2.42 [...] BP - 180/64. Rate Pressure Product - 62753. METS Achieved - 7.00. Percent Predicted Maximal HR Achieved - 99 %. Interpretation Site: Exam was interpreted at [facility]. Performance: Average exercise functional capacity. Hemodynamic Response: [...] BP - 180/64. Rate Pressure Product - 32037. METS Achieved - 7.00. Percent Predicted Maximal [...] %. Electronically Signed By: Efren Sawyer MD, [facility] 2023-05-28 17:10:05 CDT CC: CC: Procedure Note Efren Sawyer MD - 05/28/2023 [facility] Cardiology [address], [place] [address] [address], [place] [address] P:[phone] P:[phone] Echocardiographic Report Patient Name: OLAF NEWELL JOPatient ID: [id number] : [id number] Date: 05/28/2023 11:43:07 AM Gender: MAccession #: [id number] Tech: Location: [place] Ref.Provider: Yossi SAWYER(Cm): 183 BSA: 2.42Weight(Kg): 114.8 Heart Rate: 63Quality: [...] BP - 180/64. Rate Pressure Product - 10305. METS Achieved - 7.00.Percent Predicted Maximal HR Achieved - 99 %. Interpretation Site: Exam was interpreted at [facility]. Performance: Average exercise functional capacity. Hemodynamic Response: [...] BP - 180/64. Rate Pressure Product - 41659. METS Achieved - 7.00.Percent Predicted Maximal HR [...] %. Electronically Signed By: Efren Sawyer MD, [facility] 2023-05-28 17:10:05 CDT CC: CC: Efren Sawyer MD CV ECHO PROCEDURES Final Result * ECG 12 lead (05/21/2023) Efren Sawyer MD ECG ORDERABLES Final Re sult documented in this encounter Visit Diagnoses Diagnosis SVT (supraventricular tachycardia) (HCC)- Primary Other specified cardiac dysrhythmias History of coronary artery stent placement Other forms of angina pectoris (HCC) History of coronary artery stent placement Other forms of angina pectoris (HCC) documented in this encounter Care Teams Taxicab Dispatcher Relationship Specialty Start Date End Date Ciaran Rizo MD PCP - General Family Practice 05/21/23 documented as of this encounter
--- OUTSIDE RECORDS SUMMARY | 2024-08-26 05:52 | XMS_ITS | Referral Summary ---
Author Organization [facility] Address [address] [place] [address] Care Team Providers Care Visitor Services Coordinator Name Role Phone Ciaran Rizo MD Primary Care Provider [phone] Encounters Date Type Department Care Team Description 05/28/2024 8:45 AM CDT Office Visit [facility] Cardiology [address] [place] [address] Efren Sawyer MD History of coronary artery stent placement; SVT (supraventricular tachycardia) (HCC) from Last 3 Months Allergies No known active allergies Medications rOPINIRole [...] tachycardia) Assessment & Plan (09/12/2021 4:31 PM MOLD DRESSER): Recurrent, symptomatic, drug-refractory SVT. Possibly triggering AF. [...] 01/04/2022 Assessment & Plan (09/12/2021 4:29 PM MOLD DRESSER): Infrequent AF episodes seen on ambulatory monitoring and in hospital. [place] unclear, but appears to be overestimated by ambulatory monitor (confused with SVT). Suspect AF may be triggered primarily by SVT. Would recommend starting with SVT ablation and implantation of an ILR for AF surveillance. If symptomatic AF returns, AF ablation or antiarrhythmic drugs can be considered. [id number] = 3. Anticoagulation is reasonable for now, and decisions regarding need for long- term anticoagulation can be guided by ILR surveillance data. --Continue apixaban 5 mg PO BID. Hold starting 2 days prior to EPS/SVT ablation. --ILR implantation at time of SVT ablation. --ILR data to guide need for mcfp anticoagulation. Social History Tobacco Use Types Packs/Day Years Used Date Smoking Tobacco: Former Smokeless Tobacco: Never Tobacco Cessation:Counseling Given: Not Answered Alcohol Use Standard Drinks/Week Comments Yes 0 (1 standard drink = 0.6 oz pur e alcohol) Sex and Gender Information Value Date Recorded Sex Assigned at Not on file Legal Sex Male 2:20 PM MOLD DRESSER Gender Identity Not on file Sexual Orientation Straight 07/05/2021 1: 06 PM CDT Last Filed Vital Signs Vital Sign Reading Time Taken Comments Blood Pressure 160/68 05/28/2024 7:54 AM CDT Pulse 88 05/28/2024 7:54 AM CDT Temperature 36.9 ??C (98.4 ??F) 07/13/2021 4:24 AM CD T Respiratory Rate 16 09/12/2021 12:4 7 PM MOLD DRESSER Oxygen Saturation 97% 05/28/2024 7:54 AM CDT Inhaled Oxygen Concentration - - Weight 117.1 kg (258 lb 1.6 oz) 05/28/2024 7:54 AM CDT Height 182.9 cm (6') 05/28/2024 7:54 AM CDT Body Mass Index 35 05/28/2024 7:54 AM CDT Plan of Treatment Not on file Medical Devices Implanted Type Area Reception Interviewer Device Identifier Shelf Expiration Date Model / Serial / Lot [employer] [id number] Synergy Xd Monorail 2.5mm 38mm 144cm Delivery System 1 Access - S0 - [id number] Implanted:Qty: 1 on 07/11/2021 by Rosendo Silva MD at [facility] Stent [employer] 04/05/2023 [id number] 250 / 0 / [id number] Description:LAD [employer] [id number] Stent Drug Eluting S Megatron Us Mr 3.88l71cg - S0 - [id number] Implanted:Qty: 1 on 07/11/2021 by Rosendo Silva MD at [facility] Stent [employer] 01/03/2022 [id number] 350 / 0 / [id number] Description:LAD [employer] [id number] Synergy Xd Monorail 3mm 38mm 144cm Delivery System 1 Access Port - S0 - [id number] Implanted:Qty: 1 on 07/11/2021 by Rosendo Silva MD at [facility] Stent [employer] 02/20/2023 [id number] 300 / 0 / [id number] Description:RCA [employer] [id number] Synergy Xd Monorail 3.5mm 28mm 144cm Delivery System 1 Access - S0 - [id number] Implanted:Qty: 1 on 07/11/2021 by Rosendo Silva MD at [facility] Stent [employer] 02/09/2023 [id number] 350 / 0 / [id number] Description:RCA [employer] 39071-22 Perclose 6fr Suture Mediate Knot Push Vascular Device Closure - S0 - [id number] Implanted:Qty: 1 on 07/11/2021 by Rosendo Silva MD at [facility] [employer] 04/08/2023 [id number] / 0 / [id number] Insurance [facility] Advance Directives For more information, please contact: [phone] * Full Code (Latest Code Status on File) Date Activated Date Inactivated Comments 07/11/2021 5:10 PM 07/13/2021 9:05 PM Care Teams Visitor Services Coordinator Relationship Specialty Start Date End Date Ciaran Rizo MD PCP - General Family Practice 05/21/23
--- OUTSIDE RECORDS SUMMARY | 2024-08-26 05:52 | XMS_ITS | Encounter Summary ---
Author Organization [facility] Address [address] [place] [address] Care Team Providers Care Fire Extinguisher Repairer Inspector Name Role Phone Nolberto Humphrey DO Primary Care Provider [phone] Reason for Visit * Reason Comments Hospital Follow Up Hospital and ER Foll ow up Encounter Details Date Type Department Care Team (Late st Contact Info) Description 01/04/2022 11:15 AM CDT Office Visit [facility] Cardiology [address] [place] [address] Efren Sawyer MD [address] [place] [address] Atrial fibrillation, unspecified type (HCC) (Primary Dx); SVT (supraventricular tachycardia) (CMS/HCC) (HCC); Lipid screening; Coronary artery disease (CAD) excluded Social History Tobacco Use Types Packs/Day Years Used Date Smoking Tobacco: Former Smokeless Tobacco: Never Alcohol Use Standard Drinks/Week Comments Yes 0 (1 standard drink = 0.6 oz pur e alcohol) Sex and Gender Information Value Date Recorded Sex Assigned at Not on file 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 Gender Identity Not on file Sexual Orientation Straight 07/05/2021 1: 06 PM CDT documented as of this encounter Last Filed Vital Signs Vital Sign Reading Time Taken Comments Blood Pressure 136/74 01/04/2022 11:09 AM CDT Pulse 84 01/04/2022 11:09 AM CDT Temperature - - Respiratory Rate - - Oxygen Saturation 98% 01/04/2022 11:09 AM CDT Inhaled Oxygen Concentration - - Weight 105.2 kg (232 lb) 01/04/2022 11:09 AM CDT Height 182.9 cm (6') 01/04/2022 11:09 AM CDT Body Mass Index 31.46 01/04/2022 11:09 AM CDT documented in this encounter Ordered Prescriptions Prescription Sig Dispense Quantity Refills Last Filled Start Date End Date aspirin 81 mg enteric coated tablet Take 1 tablet (81 mg total) by mouth daily 30 tablet 11 01/04/2022 01/07/2023 documented in this encounter Progress Notes * Efren Sawyer MD - 01/04/2022 11:15 AM CDT [facility] 01/04/2022 Olaf Croft is a 76 y.o. male [...] for an angiogram. Angiography done here at [facility] demonstrated a high-grade disease in theLAD proximally and in the midportion. It was a heavily calcified vessel. 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 He was [facility] to [facility] to see Dr. Silva. He underwent higher risk PCI involving stenting of the proximal into the mid LAD as well as TRAFFIC DIVISION COMMANDING OFFICER intervention of the RPDA. At the time of catheterization is left ventricular systolic function was normal. The patient following that intervention has been in the hospital couple of times. He did develop the picture pericarditis following his original intervention and did have a small pericardial effusionwith this. He also has having arrhythmias with palpitations there was some statement in the chart that he had atrial fibrillation. He did have a event monitor as I mentioned in my previous note that did not show any evidence of atrial fib. He was hospitalized at [facility] in the middle of December of 2020 and was having brief episodes of SVT which I did not think was atrial fibrillation. He had been placed on apixaban which I stopped because of that and he also was not feeling well on his metoprolol with sense of extreme fatigue and sleepiness. He was taken off of that and placed on diltiazem. Since being placed on diltiazem he thinks there is a trend of these symptoms improving. He does still feel like at times his heart beats more forcefully than he thinks it should but he is not really describing anything that sounds like rapid SVT. He is not having any chest pain since the PCI that was described above. It is also clear that the patient's home blood pressure device is not accurate he is measuring very high blood pressures at home and when he comes to the office or in the hospital they are really not elevated. REVIEW OF SYSTEMS General ROS: negative for [...] MORNING, Disp: 30 tablet, Rfl: 5 ??? DILT-XR 240 mg 24 hr capsule, Take 240 mg by mouth every morning, Disp: , Rfl: ??? metoprolol XL (TOPROL-XL) 50 mg extended release tablet, TAKE 1 TABLET BY MOUTH EVERY MORNING, Disp: 30 tablet, Rfl: 5 ??? rosuvastatin (CRESTOR) 10 mg tablet, TAKE 1 TABLET BY MOUTH EVERY MORNING, Disp: 30 tablet, Rfl: 5 LABS AND OTHER DIAGNOSTIC TESTS No results found for: CHOL No results found for: HDL No results found for: LDLCALC No results found for: TRIG No results found for: CHOLHDL Lab Results Component Value Date WBC 12.7 (H) 07/12/2021 HGB 12.5 (L) 07/12/2021 HCT 36.6 (L) 07/12/2021 MCV 92.0 07/12/2021 No lab exists for component: LABALBU PHYSICAL EXAM Vitals BP 136/74 (BP Location: Left arm, Patient Position: Sitting) Pulse 84 Ht 182.9 cm (6') Wt 105.2 kg (232 lb) SpO2 98% BMI 31.46 kg/m?? Physical Examination: General appearance - alert, [...] noted ASSESSMENT Olaf was seen today for hospital follow up. Diagnoses and all orders for this visit: Atrial fibrillation, unspecified type (HCC) SVT (supraventricular tachycardia) (CMS/HCC) (HCC) PLAN/RECOMMENDATIONS For now continue his current medical regimen he is stable clinically. Despite his symptoms he is insinus rhythm and is not hypertensive. Follow-up in 2 months or PRN. Efren Sawyer MD documented in this encounter Plan of Treatment Not on file documented as of this encounter Procedures Procedure Name Priority Date/Time Associated Diagnosis Comments POCT LIPID PANEL Routine 01/04/2022 11:2 4 AM CDT Lipid screening documented in this encounter Results * POCT lipid panel (01/04/2022 11:24 AM CDT) Cholesterol, POC 125 mg/dL HDL, POC 52 mg/dL Triglycerides, POC 76 mg/dL LDL Cholesterol POC 58 mg/dL Chol/HDL Ratio, POC 2.4 Non-HDL Cholesterol, POC 73 mg/dL Cholesterol Total, POC 125 mg/dL Capillary blood 01/04/2022 1 1:24 AM CDT Efren Sawyer MD POINT OF CARE TEST ORDER WANG Final Result documented in this encounter Visit Diagnoses Diagnosis Atrial fibrillation, unspecified type (HCC)- Primary SVT (supraventricular tachycardia) (HCC) Other specified cardiac dysrhythmias Lipid screening Screening for lipoid disorders Coronary artery disease (CAD) excluded Observation for suspected cardiovascular disease documented in this encounter Discontinued Medications Medication Sig Discontinue Reason Start Date End Da te apixaban (ELIQUIS) 5 mg tabletIndications:atrial fibrillation Take 1 tablet (5 mg total) by mouth every 12 (twelve) hours 07/13/2021 01/04/2022 documented as of this encounter Historical Medications * This list may reflect changes made after this encounter. DILT-XR 240 mg 24 hr capsule Take 240 mg by mouth every morning 12/22/2021 04/27/2022 added in this encounter Care Teams Fire Extinguisher Repairer Inspector Relationship Specialty Start Date End Date Nolberto Humphrey DO PCP - General Internal Medicine 05/03/21 11/19/22 documented as of this encounter
--- OUTSIDE RECORDS SUMMARY | 2024-08-26 05:52 | XMS_ITS | Encounter Summary ---
Author Organization [facility] Address [address] [place] [address] Care Team Providers Care Nail Assembly Machine Operator Name Role Phone Ciaran Rizo MD Primary Care Provider [phone] Encounter Details Date Type Department Care Team (Late st Contact Info) Description 09/06/2023 Telephone [facility] Cardiology [address] [place] [address] Efren Sawyer MD [address] [place], [place] [id number] Social History Tobacco Use Types Packs/Day Years Used Date Smoking Tobacco: Former Smokeless Tobacco: Never Alcohol Use Standard Drinks/Week Comments Yes 0 (1 standard drink = 0.6 oz pur e alcohol) Sex and Gender Information Value Date Recorded Sex Assigned at Not on file 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 Contact:[phone] ICATION MANAGER documented in this encounter Plan of Treatment Not on file documented as of this encounter Visit Diagnoses Not on filedocumented in this encounter Care Teams Nail Assembly Machine Operator Relationship Specialty Start Date End Date Ciaran Rizo MD PCP - General Family Practice 05/21/23 documented as of this encounter
--- OUTSIDE RECORDS SUMMARY | 2024-08-26 05:52 | XMS_ITS | Encounter Summary ---
Author Organization [facility] Healthcare Address [address] [place] [address] Care Team Providers Care Strategic Insights Lead Name Role Phone Ciaran Rizo MD Primary Care Provider [phone] Reason for Visit * Reason Comments Follow-up 6 mo f/u SVT * Consultation (Routine) - Authorized Specialty Diagnoses / Procedures Referred By Contac t Referred To Contact Cardiology Diagnoses History of coronary artery stent placement SVT (supraventricular tachycardia) (HCC) Ciaran Rizo MD Phone: tel: fax: Efren Sawyer MD [address] [facility] [address] [address] Phone: tel: fax: Referral ID Status Reason Start Date Expiration Date Visits Requested Visits Authorized [id number] Authorized Specialty Services Required 01/08/2024 01/07/2025 30 30 Encounter Details Date Type Department Care Team (Late st Contact Info) Description 05/28/2024 8:45 AM CDT Office Visit [facility] Cardiology [address] [facility] [address] [address] Efren Sawyer MD [address] [facility] [address] [address] History of coronary artery stent placement; SVT (supraventricular tachycardia) (HCC) Social History Tobacco Use Types Packs/Day Years Used Date Smoking Tobacco: Former Smokeless Tobacco: Never Alcohol Use Standard Drinks/Week Comments Yes 0 (1 standard drink = 0.6 oz pur e alcohol) Sex and Gender Information Value Date Recorded Sex Assigned at Not on file 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 Gender Identity Not on file Sexual Orientation Straight 07/05/2021 1: 06 PM CDT documented as of this encounter Last Filed Vital Signs Vital Sign Reading Time Taken Comments Blood Pressure 160/68 05/28/2024 7:54 AM CDT Pulse 88 05/28/2024 7:54 AM CDT Temperature - - Respiratory Rate - - Oxygen Saturation 97% 05/28/2024 7:54 AM CDT Inhaled Oxygen Concentration - - Weight 117.1 kg (258 lb 1.6 oz) 05/28/2024 7:54 AM CDT Height 182.9 cm (6') 05/28/2024 7:54 AM CDT Body Mass Index 35 05/28/2024 7:54 AM CDT documented in this encounter Progress Notes * Efren Sawyer MD - 05/28/2024 8:45 AM CDT [facility] 05/28/2024 Olaf Menchaca is a 78 y.o. male [...] for an angiogram. Angiography done here at [facility] demonstrated a high-grade disease in theLAD proximally and in the midportion. It was a heavily calcified vessel. 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 He was referred to [facility] to see Dr. Silva. He underwent higher risk PCI involving stenting of the proximal into the mid LAD as well as EMPLOYEE WELLNESS/FITNESS COORDINATOR intervention of the RPDA. At the time of catheterization is left ventricular systolic function was normal. Following that intervention the patient developed a clinical picture of pericarditis was hospit alized a couple of times at [place]. He did have a small pericardial effusion with that. He did have some tachy arrhythmias during that hospitalization which were initially interpreted as atrial fibrillation but I taught front office representative pre episodes of SVT. He did have an event monitor done after this which did not show any evidence of atrial fibrillation either. The patient had a stress echocardiogram done in May of 2023 because he was having some atypical sounding symptoms. The study was negative at a high workload. The patient returns today for a scheduled six-month office visit. He has no significant complaints of ischemia. He did have an episode of symptomatic SVT in December of this year which was self-limited and lasted about 5 minutes. REVIEW OF SYSTEMS General ROS: negative for [...] IN THE MORNING, Disp: 90 tablet, Rfl: 2 LABS AND OTHER DIAGNOSTIC TESTS No results found for: CHOL No results found for: HDL No results found for: LDLCALC No results found for: TRIG No results found for: CHOLHDL Lab Results Component Value Date WBC 12.7 (H) 07/12/2021 HGB 12.5 (L) 07/12/2021 HCT 36.6 (L) 07/12/2021 MCV 92.0 07/12/2021 No lab exists for component: LABALBU PHYSICAL EXAM Vitals BP 160/68 (BP Location: Right arm, Patient Position: Sitting) Pulse 88 Ht 182.9 cm (6') Wt 117.1 kg (258 lb 1.6 oz) SpO2 97% BMI 35.00 kg/m?? Physical Examination: General appearance - alert, [...] Diagnoses and all orders for this visit: History of coronary artery stent placement - Ambulatory referral to Cardiology SVT (supraventricular tachycardia) (HCC) - Ambulatory referral to Cardiology PLAN/RECOMMENDATIONS No change in medical regimen Follow-up 6 months or p.r.n. Efren Sawyer MD documented in this encounter Plan of Treatment Not on file documented as of this encounter Visit Diagnoses Diagnosis History of coronary artery stent placement SVT (supraventricular tachycardia) (HCC) Other specified cardiac dysrhythmias documented in this encounter Discontinued Medications Medication Sig Discontinue Reason Start Date End Da te metoprolol XL (TOPROL-XL) 50 mg extended release tablet TAKE 1 TABLET BY MOUTH EVERY DAY IN THE MORNING Therapy completed 07/25/2022 05/28/2024 documented as of this encounter Orders Outpatient Referral Count Last Ordered Date Fir st Ordered Date AMB REFERRAL TO CARDIOLOGY 1 05/28/2024 documented in this encounter Care Teams Strategic Insights Lead Relationship Specialty Start Date End Date Ciaran Rizo MD PCP - General Family Practice 05/21/23 documented as of this encounter
--- OUTSIDE RECORDS SUMMARY | 2024-08-26 05:52 | XMS_ITS | Encounter Summary ---
Author Organization [facility] Healthcare Address [address] [place] [address] Care Team Providers Care Learning Support Teacher Name Role Phone Nolberto Humphrey DO Primary Care Provider [phone] Reason for Visit * Reason Onset Date Comments Cardiac Rehab Navigator Initial f/u call 021 Encounter Details Date Type Department Care Team (Late st Contact Info) Description 07/25/2021 Telephone [facility] Case Management [facility] [place] [address] Star Vaz EP-C Cardiac Rehab Navigator Initial f/u call Social History Tobacco Use Types Packs/Day Years Used Date Smoking Tobacco: Former Smokeless Tobacco: Never Alcohol Use Standard Drinks/Week Comments Yes 0 (1 standard drink = 0.6 oz pur e alcohol) Sex and Gender Information Value Date Recorded Sex Assigned at Not on file Legal Sex Male 2:20 PM SCHEDULING REPRESENTATIVE Gender Identity Not on file Sexual Orientation Straight 07/05/2021 1: 06 PM CDT documented as of this encounter Miscellaneous Notes * Telephone Encounter - Star Vaz EP-C - 07/25/2021 3:22 PM SCHEDULING REPRESENTATIVE Pt returned my call regarding f/u questions Initial Follow-up Call Questions ?? Medications: Pt reports taking all medication as prescribed. Asked specifically about blood thinners (plavix + eliquis) and cholesterol/statin medication. Pt denies any current questions about medications. ?? Cardiac Rehab Facility: Pt states that he has been in contact with the [facility] cardiac rehab. He states that theyare looking into his insurance, and are supposed to call him again this week. He seems interested in the program. Pt states that he has not began an exercise routine at home yet. He informs me that he has been experiencing some discomfort at his cath site (groin). He has communicated this with his PCP as well asDr. Sawyer's office. I encouraged him to continue monitoring it, and to let Dr. Sawyer know if it continues or worsens. ?? I recommended he try doing 5-10 minutes of light walking, 3x/day. I educated pt on how to safelyand gradually progress walking as tolerated at home. ?? Explained the importance of trying to gradually, and safely improve exercise tolerance. Educatedpt on the [place] [employer] recommendation of working towards 150+ minutes/week of light to moderate-intensity aerobic exercise, or 75+ minutes of vigorous-intensity aerobic exercise to helpimprove cardiovascular function as well as quality of life. ?? Suggested that pt avoid strenuous exercise/exertion outside if the weather is under 40 degrees, or over 85 degrees. Explained the physiological reasoning for this suggestion - pt verbalized understanding. ?? Educated pt on the signs/symptoms of over-exertion: SOB, chest discomfort, musculoskeletal pain,abnormal fatigue, etc. Explained when it would be appropriate to call Language Tutor's office, go to the ER, or call 911. ?? Language Tutor Follow-up Appointment: Pt does not have an appointment scheduled with Dr. Sawyer yet. He plans to schedule one soon. ?? Readmission: Pt reports they have not been readmitted to a hospital since being discharged from [facility]. Will plan to make 30-day f/u call with pt. DULING REPRESENTATIVE * Telephone Encounter - Star Vaz EP-C - 07/25/2021 3:07 PM SCHEDULING REPRESENTATIVE Called pt to ask Cardiac Rehab Navigator Initial f/u questions. Pt's (Irasema) answered, and stated that pt was not available. She offered to take my number for pt to return call when he is available. Provided Irasema my office number, name and department. Call attempt x 1. Will plan to call again at a later date if pt does not return call. DULING REPRESENTATIVE documented in this encounter Plan of Treatment Not on file documented as of this encounter Visit Diagnoses Not on filedocumented in this encounter Care Teams Learning Support Teacher Relationship Specialty Start Date End Date Nolberto Humphrey DO PCP - General Internal Medicine 05/03/21 11/19/22 documented as of this encounter
--- OUTSIDE RECORDS SUMMARY | 2024-08-26 05:52 | XMS_ITS | Encounter Summary ---
Author Organization [facility] Address [address] [facility] [address] [place] [address] Care Team Providers Care Hot Baller Name Role Phone Nolberto Humphrey DO Primary Care Provider [phone] Encounter Details Date Type Department Care Team (Late st Contact Info) Description 12/20/2021 Orders Only [facility] Cardiology [address] [place] [address] Efren Sawyer MD [address] [place], [place] [id number] Social History Tobacco Use Types Packs/Day Years Used Date Smoking Tobacco: Former Smokeless Tobacco: Never Alcohol Use Standard Drinks/Week Comments Yes 0 (1 standard drink = 0.6 oz pur e alcohol) Sex and Gender Information Value Date Recorded Sex Assigned at Not on file 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 Gender Identity Not on file Sexual Orientation Straight 07/05/2021 1: 06 PM CDT documented as of this encounter Plan of Treatment Not on file documented as of this encounter Procedures Procedure Name Priority Date/Time Associated Diagnosis Comments CARDIOLOGY DOCUMENT SCAN Routine 12/20/2021 documented in this encounter Results * Cardiology Document Scan (12/20/2021) Anatomical Region Laterality Modality Other Efren Sawyer MD CV CARDIAC SERVICES PROC EDURES Final Result documented in this encounter Visit Diagnoses Not on filedocumented in this encounter Care Teams Hot Baller Relationship Specialty Start Date End Date Nolberto Humphrey DO PCP - General Internal Medicine 05/03/21 11/19/22 documented as of this encounter
--- OUTSIDE RECORDS SUMMARY | 2024-08-26 05:52 | XMS_ITS | Encounter Summary ---
Author Organization [facility] Address [address] [facility] [address] [place] [address] Care Team Providers Care Babysitter Name Role Phone Nolberto Humphrey DO Primary Care Provider [phone] Encounter Details Date Type Department Care Team (Late st Contact Info) Description 09/18/2021 Telephone [facility] [address] 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 To be clear he has never had an ablation before. I'm not sure what he's talking about. CH INSTRUCTOR * Telephone Encounter - Dolores Ulrich - 09/18/2021 10:18 AM CST Patient called and canceled his ablation and ILR implant. He said he does not want to have another ablation at this time. He will call if he changes his mind or has questions. I offered him an followup appointment with Dr. Nguyen to discuss any concerns but patient declined at this time. CH INSTRUCTOR documented in this encounter Plan of Treatment Not on file documented as of this encounter Visit Diagnoses Not on filedocumented in this encounter Care Teams Babysitter Relationship Specialty Start Date End Date Nolberto Humphrey DO PCP - General Internal Medicine 05/03/21 11/19/22 documented as of this encounter
--- OUTSIDE RECORDS SUMMARY | 2024-08-26 05:52 | XMS_ITS | Encounter Summary ---
Author Organization [facility] Address [address] [facility] [address] [place] [address] Care Team Providers Care Cabin Worker Name Role Phone Leatha Silvestre MD Primary Care Provider [phone] Reason for Visit * Consultation (Routine) - Closed Specialty Diagnoses / Procedures Referred By Contac t Referred To Contact Cardiology Diagnoses SVT (supraventricular tachycardia) (HCC) Atherosclerotic heart disease of [place] coronary artery with other forms of angina pectoris (HCC) Leatha Silvestre MD Phone: tel: fax: [facility] Medical [facility] Cardiology [address] [facility] [address] [place] [address] Phone: tel: fax: Referral ID Status Reason Start Date Expiration Date V isits Requested Visits Authorized [id number] Closed Specialty Services Required 11/20/2022 05/23/2023 6 6 Encounter Details Date Type Department Care Team (Late st Contact Info) Description 11/20/2022 10:00 AM CDT Office Visit [facility] Medical [facility] Cardiology [address] [facility] [address] [address] Efren Sawyer MD [address] [facility] [address] [place] [address] History of coronary artery stent placement (Primary Dx); SVT (supraventricular tachycardia) (CMS/HCC) (HCC); Atherosclerotic heart disease of [place] coronary artery with other forms of angina pectoris (HCC); Coronary artery disease (CAD) excluded Social History Tobacco Use Types Packs/Day Years Used Date Smoking Tobacco: Former Smokeless Tobacco: Never Tobacco Cessation:Counseling Given: Not Answered Alcohol Use Standard Drinks/Week Comments Yes 0 (1 standard drink = 0.6 oz pur e alcohol) Sex and Gender Information Value Date Recorded Sex Assigned at Not on file 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 [employer] Gender Identity Not on file Sexual Orientation Straight 07/05/2021 1: 06 PM CDT documented as of this encounter Last Filed Vital Signs Vital Sign Reading Time Taken Comments Blood Pressure 148/90 11/20/2022 10:01 AM CDT Pulse 92 11/20/2022 10:01 AM CDT Temperature - - Respiratory Rate - - Oxygen Saturation 98% 11/20/2022 10:01 AM CDT Inhaled Oxygen Concentration - - Weight 112.5 kg (248 lb) 11/20/2022 10:01 AM CDT Height 182.9 cm (6') 11/20/2022 10:01 AM CDT Body Mass Index 33.63 11/20/2022 10:01 AM CDT documented in this encounter Progress Notes * Efren Sawyer MD - 11/20/2022 10:00 AM CDT [facility] 11/20/2022 Olaf Croft is a 77 y.o. male who presents [...] for an angiogram. Angiography done here at [facility] demonstrated a high-grade disease in theLAD proximally and in the midportion. It was a heavily calcified vessel. 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 He was referred to [facility] to see Dr. Silva. He underwent higher risk PCI involving stenting of the proximal into the mid LAD as well as TAR LEVELER intervention of the RPDA. At the time of catheterization is left ventricular systolic function was normal. Following that intervention the patient developed a clinical picture of pericarditis was hospit alized a couple of times at [place]. He did have a small pericardial effusion with that. 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 He did have an event monitor done after this which did not show any evidence of atrial fibrillation either. He presents today for scheduled office follow-up appointment. He is doing very well and describes no significant symptomatology. There is no ischemic chest pain of any kind and he exerts himself regularly without any problems. He has some brief momentary palpitations as I mentioned above that I think are related to brief episodes of SVT. He says this has happened 2 or 3 times in the last year lasting just several seconds. REVIEW OF SYSTEMS General ROS: negative for [...] Medications: aspirin 81 mg enteric coated tablet, Take 1 tablet (81 mg total) by mouth daily, Disp: 30 tablet, Rfl: 11 clopidogreL (PLAVIX) 75 mg tablet, TAKE 1 TABLET BY MOUTH EVERY DAY IN THE MORNING, Disp: 90 tablet, Rfl: 1 DILT-XR 240 mg 24 hr capsule, Take 1 capsule (240 mg total) by mouth every morning, Disp: 90 capsule, Rfl: 3 rOPINIRole (REQUIP) 1 mg tablet, Take 1 mg by mouth nightly, Disp: , Rfl: rosuvastatin [...] for component: LABALBU PHYSICAL EXAM Vitals BP 148/90 (BP Location: Left arm, Patient Position: Sitting) Pulse 92 Ht 182.9 cm (6') Wt 112.5 kg (248 lb) SpO2 98% BMI 33.63 kg/m?? Physical Examination: General appearance - alert, [...] visit: History of coronary artery stent placement SVT (supraventricular tachycardia) (CMS/HCC) (HCC) - Ambulatory referral to Cardiology Atherosclerotic heart disease of [place] coronary artery with other forms of angina pectoris (HCC) - Ambulatory referral to Cardiology Coronary artery disease (CAD) excluded PLAN/RECOMMENDATIONS No change in medical regimen Told the patient that brief episodes of SVT like this do not require any treatment at this point explain the benign nature of this arrhythmia to him Follow-up with me 6 months or p.r.n. Efren Sawyer MD documented in this encounter Plan of Treatment Not on file documented as of this encounter Visit Diagnoses Diagnosis History of coronary artery stent placement- Primary SVT (supraventricular tachycardia) (HCC) Other specified cardiac dysrhythmias Atherosclerotic heart disease of [place] coronary artery with other forms of angina pectoris (HCC) Coronary artery disease (CAD) excluded Observation for suspected cardiovascular disease documented in this encounter Orders Outpatient Referral Count Last Ordered Date Fir st Ordered Date AMB REFERRAL TO CARDIOLOGY 1 11/20/2022 documented in this encounter Care Teams Cabin Worker Relationship Specialty Start Date End Date Leatha Silvestre MD PCP - General Internal Medicine 11/20/22 05/20/23 documented as of this encounter
--- OUTSIDE RECORDS SUMMARY | 2024-08-26 05:53 | XMS_ITS | Encounter Summary ---
Author Organization [facility] Address [address] [place] [address] Phone Care Team Providers Care Fund Controller Name Role Phone Olaf Carvajal MD Primary Care Provider [phone] Encounter Details Date Type Department Care Team (Latest Contact Info) Description 10/06/2018 Orders Only [facility] Scanning, Provider Social History Tobacco Use Types Packs/Day Years Used Date Smoking Tobacco: Former Smokeless Tobacco: Never Alcohol Use Standard Drinks/Week Comments Yes 0 (1 standard drink = 0.6 oz pur e alcohol) Sex and Gender Information Value Date Recorded Sex Assigned at Not on file 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 Gender Identity Not on file Sexual Orientation Straight 07/05/2021 1: 06 PM CDT documented as of this encounter Plan of Treatment Not on file documented as of this encounter Procedures Procedure Name Priority Date/Time Associated Diagnosis Comments SLEEP LAB/STUDY - RESULT 10/06/2018 documented in this encounter Results * SLEEP LAB/STUDY - RESULT (10/06/2018) us Provider Scanning Final Result documented in this encounter Visit Diagnoses Not on filedocumented in this encounter Care Teams Fund Controller Relationship Specialty Start Date End Date Olaf Carvajal MD [address] [place] [address] PCP - General 11/03/12 05/02/21 documented as of this encounter
--- OUTSIDE RECORDS SUMMARY | 2024-08-26 05:53 | XMS_ITS | Encounter Summary ---
Author Organization [facility] Address [address] [place] [address] Phone Care Team Providers Care Tile And Mottle Supervisor Name Role Phone Olaf Carvajal MD Primary Care Provider [phone] Reason for Visit * Reason Onset Date Comments Gralise 03/02/2020 Encounter Details Date Type Department Care Team (Late st Contact Info) Description 03/02/2020 Telephone [facility] Neuro Sleep [address] 6[address] [place] [address] Idalmis Au RN Gralise Social History Tobacco Use Types Packs/Day Years Used Date Smoking Tobacco: Former Smokeless Tobacco: Never Alcohol Use Standard Drinks/Week Comments Yes 0 (1 standard drink = 0.6 oz pur e alcohol) Sex and Gender Information Value Date Recorded Sex Assigned at Not on file 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 * Telephone Encounter - Idalmis Au RN - 03/02/2020 4:04 PM CDT Patient left a message that he has restarted the Gralise. Called the patient and he just restarted the Gralise 600 mg every evening. He has enough medicationfor a week or so. Pending appt 08/01/20 documented in this encounter Plan of Treatment Not on file documented as of this encounter Visit Diagnoses Not on filedocumented in this encounter Care Teams Tile And Mottle Supervisor Relationship Specialty Start Date End Date Olaf Carvajal MD [address] [place] [address] PCP - General 11/03/12 05/02/21 documented as of this encounter
--- OUTSIDE RECORDS SUMMARY | 2024-08-26 05:53 | XMS_ITS | Encounter Summary ---
Author Organization [facility] Address [address] [place] [address] Phone Care Team Providers Care Roller Skate Assembler Name Role Phone Olaf Carvajal MD Primary Care Provider [phone] Encounter Details Date Type Department Care Team (Late st Contact Info) Description 11/17/[address] 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 ING FIXTURE TENDER documented in this encounter Plan of Treatment Not on file documented as of this encounter Visit Diagnoses Not on filedocumented in this encounter Care Teams Roller Skate Assembler Relationship Specialty Start Date End Date Olaf Carvajal MD [address] [place] [address] PCP - General 11/03/12 05/02/21 documented as of this encounter
--- OUTSIDE RECORDS SUMMARY | 2024-08-26 05:53 | XMS_ITS | Encounter Summary ---
Author Organization [facility] Address [address] [place] [address] Care Team Providers Care Travel Director Name Role Phone Nolberto Humphrey DO Primary Care Provider Reason for Referral * Cardiology (Routine) - Closed Specialty Diagnoses / Procedures Referred By Jonna chance Referred To Contact Diagnoses Shortness of breath Procedures Echo Exercise Stress W Doppler/CF Efren Sawyer MD [address] [facility] [address] [address] Phone: tel: fax: [facility] Referral ID Status Reason Start Date Expiration Date Visits Re quested Visits Authorized [id number] Closed 05/09/2021 06/08/2022 1 1 Reason for Visit * Reason Comments New Patient SOB * Consultation (Routine) - Closed Specialty Diagnoses / Procedures Referred By Controsa t Referred To Contact Cardiology Diagnoses Shortness of breath Nolberto Humphrey DO Phone: tel: fax: [facility] Cardiology [address] [address] Phone: tel: fax: Referral ID Status Reason Start Date Expiration Date V isits Requested Visits Authorized [id number] Closed Specialty Services Required 05/08/2021 05/08/2022 6 6 Encounter Details Date Type Department Care Team (Late st Contact Info) Description 05/09/2021 4:15 PM CDT Office Visit [facility] Cardiology [address] [place] [address] Efren Sawyer MD [address] [place] [address] SOB (shortness of breath); Shortness of breath Social History Tobacco Use Types Packs/Day Years Used Date Smoking Tobacco: Former Smokeless Tobacco: Never Alcohol Use Standard Drinks/Week Comments Yes 0 (1 standard drink = 0.6 oz pur e alcohol) Sex and Gender Information Value Date Recorded Sex Assigned at Not on file Legal Sex Male 2:20 PM MOTION PICTURE SET GRIP Gender Identity Not on file Sexual Orientation Straight 07/05/2021 1: 06 PM CDT documented as of this encounter Last Filed Vital Signs Vital Sign Reading Time Taken Comments Blood Pressure 122/76 05/09/2021 4:15 PM CDT Pulse 90 05/09/2021 4:15 PM CDT Temperature - - Respiratory Rate - - Oxygen Saturation 97% 05/09/2021 4:15 PM CDT Inhaled Oxygen Concentration - - Weight 109.3 kg (241 lb) 05/09/2021 4:15 PM CDT Height 182.9 cm (6') 05/09/2021 4:15 PM CDT Body Mass Index 32.69 05/09/2021 4:15 PM CDT documented in this encounter Progress Notes * Efren Sawyer MD - 05/09/2021 4:15 PM CDT [facility] 05/09/2021 CHIEF COMPLAINT Shortness of breath HPI Olaf Newell is a 75 y.o. male with no previous history of significant cardiac problems who is referred today for consultation/evaluation because of dyspnea. The patient states that he has noticed for the last couple of months the onset of some very mild shortness of breath with activity that he does not think has been bothering him in the past. He states that he in the past was seen by 1 of my former partners, Dr. Box in our former practice but he can not really remember the reasonfor that consultation. He does not believe anything serious was found in the way of any cardiac pathology and that was a long time ago and I do not have any of those records. He gets his primary carefrom Dr. Humphrey and carries the diagnosis of obesity and sleep apnea. He is not having any exertional chest pain pressure or heaviness he does not have any orthopnea PND or accumulating lower extremity edema. The patient states he was in very good health and fitness at a until several years ago whenhe developed a back injury and he had to stop exercising by prior to that he would ride his bicyclefor long distances for fitness and he was in very good shape. Can not do that anymore because of his back. 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 MEDICAL HISTORY Past Medical History: Diagnosis Date ??? Adiposity Obesity ??? Sleep apnea 2011 - cpap therapy Past Surgical History: Procedure Laterality Date ??? CATARACT EXTRACTION 2019 - both eyes Family History Problem Relation Age of Onset ??? Coronary artery disease Father Coronary Artery Bypass Graft; ??? Other Father Valve Replacement; ??? Heart attack Father Myocardial Infarction; Cause of : Myocardial Infarction Social History Socioeconomic History ??? Marital status: [...] Social Determinants of Health Financial Resource Strain: ??? Difficulty of Paying Living Expenses: Not on file Food Insecurity: ??? Worried About Running Out of Food in the Last Year: Not on file ??? Ran Out of Food in the Last Year: Not on file Transportation Needs: ??? Lack of Transportation (Medical): Not on file ??? Lack of Transportation (Non-Medical): Not on file Physical Activity: ??? Days of Exercise per Week: Not on file ??? Minutes of Exercise per Session: Not on file Stress: ??? Feeling of Stress : Not on file Social Connections: ??? Frequency of Communication with Friends and Family: Not on file ??? Frequency of Social Gatherings with Friends and Family: Not on file ??? Attends Yarsanism Services: Not on file ??? Active Member of Clubs or Organizations: Not on file ??? Attends Club or Organization Meetings: Not on file ??? Marital Status: Not on file Intimate Partner Violence: ??? Fear of Current or Ex-Partner: Not on file ??? Emotionally Abused: Not on file ??? Physically Abused: Not on file ??? Sexually Abused: Not on file (Not in a hospital admission) No Known Allergies REVIEW OF SYSTEMS General ROS: negative for [...] for dry skin, eczema, pruritus and rash LABS AND OTHER DIAGNOSTIC TESTS No results found for: WBC, HGB, HCT, MCV, PLT No lab exists for component: LABALBU No results found for: CHOL No results found for: HDL No results found for: LDLCALC No results found for: TRIG No results found for: CHOLHDL PHYSICAL EXAM Vitals BP 122/76 (BP Location: Right arm, Patient Position: Sitting) Pulse 90 Ht 182.9 cm (6') Wt 109.3 kg (241 lb) SpO2 97% BMI 32.69 kg/m?? General appearance - alert, well appearing, and in no distress, oriented to person, place, and timeand acyanotic, in no respiratory distress Mental status [...] rashes, no suspicious skin lesions noted ASSESSMENT Mild exertional dyspnea occurring in this 75-year-old man who is overweight and has sleep apnea. His concern is that these are not symptoms of ischemic disease. Physical exam and resting EKG look okay PLAN/RECOMMENDATIONS Will recommend and schedule a stress echocardiogram to serve to screen for ischemic heart disease. Hopefully this will be negative Efren Sawyer MD documented in this encounter Miscellaneous Notes * Addendum Note - Barbie Mcgraw MA - 05/09/2021 4:15 PM CDTAddended by: BARBIE MCGRAW on: 05/12/2021 02:50 PM Modules accepted: Orders documented in this encounter Plan of Treatment Not on file documented as of this encounter Procedures Procedure Name Priority Date/Time Associated Diagnosis Comments ECG 12-LEAD Routine 05/09/2021 SOB (shortness of breath) LIPID PANEL Routine 10/25/2020 9:36 AM MOTION PICTURE SET GRIP documented in this encounter Results * STRESS ECHO EXERCISE WO DOPPLER/CF W CONTRAST (06/08/2021 9:16 AM CDT) Anatomical Region Laterality Modality Ultrasound 06/08/2021 8:02 AM CDT Narrative 06/08/2021 12:41 PM CDT [facility] Cardiology [address] [facility] [address] [facility] [address], [place] [address] [address], [place] [address] P:[phone] P:[phone] Echocardiographic Report Patient Name: OLAF NEWELL : 1945 Study Date: 06/08/2021 8:02:46 AM Gender: M Tech: Location: [place] Ref.Provider: EFREN SAWYER Height(Cm): 183 BSA: 2.31 Weight(Kg): 109.32 Heart Rate: 61 BP: 142/80 Quality: Definity contrast agent used to enhance endocardial border definition Order Provider: EFREN SAWYER Procedures: Stress Echo Report: Treadmill stress echocardiogram with Definity contrast. Indications: Shortness of breath, Medications: Gabapentin, and Stress test monitored by: Jazmyne Fan RN. Findings: Stress Echo: Protocol - Catrachito Protocol. Exercise Time - 5.22 min. Baseline Heart Rate - 61. Peak Heart Rate - 140. Predicted Maximal Heart Rate - 146. 85% MPHR - 124. Baseline BP - 142/86. Peak BP - 180/70. Rate Pressure Product - 23023. METS Achieved - 7.00. Percent Predicted Maximal HR Achieved - 96 %. Interpretation Site: Exam was interpreted at [facility]. Performance: Average exercise functional capacity. Hemodynamic Response: Normal blood pressure response. Arrhythmia: No exercise induced arrhythmias. Termination: Fatigue and chest tightness. Resting ECG: Normal EKG. Exercise ECG: Non-diagnostic ST-T wave changes with exercise. Resting LV Function: Normal left ventricular size, normal systolic function, normal wall thickness with no segmental wall motion abnormalities at rest. Definity contrast agent used to visually enhance endocardial wall motion and contractility. Lot Number [id number]. Post Stress LV Function: Definity contrast agent used to visually enhance endocardial wall motion and contractility. These segments of the LV are hypokinetic: apical segment, apical anterior segment and anteroseptum segment. Conclusions: Protocol - Catrachito Protocol. Exercise Time - 5.22 min. Baseline Heart Rate - 61. Peak Heart Rate - 140. Predicted Maximal Heart Rate - 146. 85% MPHR - 124. Baseline BP - 142/86. Peak BP - 180/70. Rate Pressure Product - 04060. METS Achieved - 7.00. Percent Predicted Maximal HR Achieved - 96 %. Normal EKG. Non-diagnostic ST-T wave changes with exercise. Normal left ventricular size, normal systolic function, normal wall thickness with no segmental wall motion abnormalities at rest. Definity contrast agent used to visually enhance endocardial wall motion and contractility. Lot Number [id number]. Definity contrast agent used to visually enhance endocardial wall motion and contractility. These segments of the LV are hypokinetic: apical segment, apical anterior segment and anteroseptum segment. Echocardiographic evidence of ischemia. Electronically Signed By: Efren Sawyer MD, [facility] 2021-06-08 12:41:16 CDT Procedure Note Efren Sawyer MD - 06/08/2021 [facility] Cardiology [address] [facility] [address], [place] [address] [address], [place] [address] P:[phone] P:[phone] Echocardiographic Report Patient Name: OLAF NEWELLPatient ID: [id number] : [id number] Date: 06/08/2021 8:02:46 AM Gender: MAccession #: [id number] Tech: GMLocation: [place] Ref.Provider: EFREN SAWYERHeight(Cm): 183 BSA: 2.31Weight(Kg): 109.32 Heart Rate: 61BP: 142/80 Quality: Definity contrast agent used to enhance endocardial borderdefinitionOrder Provider: EFREN SAWYER Procedures: Stress Echo Report: Treadmill stress echocardiogram with Definity contrast. Indications: Shortness of breath, Medications: Gabapentin, and Stress test monitoredby: Jazmyne Fan RN. Findings: Stress Echo: Protocol - Catrachito Protocol. Exercise Time - 5.22 min. Baseline Heart Rate -61. Peak Heart Rate - 140. Predicted Maximal Heart Rate - 146. 85% MPHR - 124. BaselineBP - 142/86. Peak BP - 180/70. Rate Pressure Product - 81882. METS Achieved - 7.00.Percent Predicted Maximal HR Achieved - 96 %. Interpretation Site: Exam was interpreted at [facility]. Performance: Average exercise functional capacity. Hemodynamic Response: Normal blood pressure response. Arrhythmia: No exercise induced arrhythmias. Termination: Fatigue and chest tightness. Resting ECG: Normal EKG. Exercise ECG: Non-diagnostic ST-T wave changes with exercise. Resting LV Function: Normal left ventricular size, normal systolic function, normal wallthickness with no segmental wall motion abnormalities at rest. Definity contrast agent usedto visually enhance endocardial wall motion and contractility. Lot Number [id number]. Post Stress LV Function: Definity contrast agent used to visually enhance endocardial wall motionand contractility. These segments of the LV are hypokinetic: apical segment,apical anterior segment and anteroseptum segment. Conclusions: Protocol - Catrachito Protocol. Exercise Time - 5.22 min. Baseline Heart Rate -61. Peak Heart Rate - 140. Predicted Maximal Heart Rate - 146. 85% MPHR - 124. BaselineBP - 142/86. Peak BP - 180/70. Rate Pressure Product - 72458. METS Achieved - 7.00.Percent Predicted Maximal HR Achieved - 96 %. Normal EKG. Non-diagnostic ST-T wave changes with exercise. Normal left ventricular size, normal systolic function, normal wallthickness with no segmental wall motion abnormalities at rest. Definity contrast agent usedto visually enhance endocardial wall motion and contractility. Lot Number [id number]. Definity contrast agent used to visually enhance endocardial wall motionand contractility. These segments of the LV are hypokinetic: apical segment,apical anterior segment and anteroseptum segment. Echocardiographic evidence of ischemia. Electronically Signed By: Efren Sawyer MD, [facility] 2021-06-08 12:41:16 CDT us Efren Sawyer MD CV ECHO PROCEDURES Final Result * ECG 12 lead (05/09/2021) Efren Saywer MD ECG ORDERABLES Final Re sult * (ABNORMAL) Lipid panel (10/25/2020 9:36 AM MOTION PICTURE SET GRIP) SCRIBED Cholesterol, Total 192 0 - 200 EXTERNAL LAB SCRIBED HDL 54 40 - 100 EXTERNAL LAB SCRIBED LDL 111(A) 0 - 100 EXTERNAL LAB SCRIBED Triglycerides 159(A) 0 - 150 EXTERNAL LAB Blood specimen (specimen) 10/25/2020 9:36 AM MOTION PICTURE SET GRIP us Historical Provider LAB BLOOD ORDERABLES Edit ed Result - Final EXTERNAL LAB documented in this encounter Visit Diagnoses Diagnosis SOB (shortness of breath) Shortness of breath Shortness of breath Shortness of breath documented in this encounter Discontinued Medications Medication Sig Discontinue Reason Start Date End Da te gabapentin (NEURONTIN) 100 mg capsuleIndications:RLS (restless legs syndrome) TAKE 3 TO 4 CAPSULES BY MOUTH NIGHTLY Dose adjustment 12/16/2020 05/09/2021 documented as of this encounter Historical Medications * This list may reflect changes made after this encounter. gabapentin (NEURONTIN) 100 mg capsule Take 200 mg by mouth daily 09/12/2021 added in this encounter Orders Outpatient Referral Count Last Ordered Date Fir st Ordered Date AMB REFERRAL TO CARDIOLOGY 2 05/09/2021 documented in this encounter Care Teams Travel Director Relationship Specialty Start Date End Date Nolberto Humphrey DO PCP - General Internal Medicine 05/03/21 11/19/22 documented as of this encounter
--- OUTSIDE RECORDS SUMMARY | 2024-08-26 05:53 | XMS_ITS | Encounter Summary ---
Author Organization [facility] Address [address] [place] [address] Care Team Providers Care Data Integration Developer Name Role Phone Nolberto Humphrey DO Primary Care Provider [phone] Encounter Details Date Type Department Care Team (Late st Contact Info) Description 07/24/2021 11:15 AM IT APPLICATIONS DEVELOPER Office Visit [facility] Cardiology [address] [place] [address] Visit for wound check Social History Tobacco Use Types Packs/Day Years Used Date Smoking Tobacco: Former Smokeless Tobacco: Never Alcohol Use Standard Drinks/Week Comments Yes 0 (1 standard drink = 0.6 oz pur e alcohol) Sex and Gender Information Value Date Recorded Sex Assigned at Not on file Legal Sex Male 2:20 PM IT APPLICATIONS DEVELOPER Gender Identity Not on file Sexual Orientation Straight 07/05/2021 1: 06 PM CDT documented as of this encounter Progress Notes * Sandy Ying RN - 07/24/2021 11:15 AM CST Pt arrive to office after his left heart cath 2 weeks ago. Examined his right groin-there is bruising noted that appears to be subsiding, there is what appears to be a small hematoma above the right groin puncture site about 2 inches in length by 1/2 inch wide. Pt said is is a little tender when hebends over but other beckwith he has no pain. Pulse in present in right groin. Jazmyne MANDUJANO also examined pt groin and she noted the same thing. Advised pt to cont to monitor and to notify us if it increasesin size or discomfort. Pt verbalized understanding. APPLICATIONS DEVELOPER documented in this encounter Plan of Treatment Not on file documented as of this encounter Visit Diagnoses Diagnosis Visit for wound check documented in this encounter Care Teams Data Integration Developer Relationship Specialty Start Date End Date Nolberto Humphrey DO PCP - General Internal Medicine 05/03/21 11/19/22 documented as of this encounter
--- OUTSIDE RECORDS SUMMARY | 2024-08-26 05:53 | XMS_ITS | Encounter Summary ---
Author Organization [facility] Address [address] [place] [address] Care Team Providers Care Body Builder Apprentice Name Role Phone Nolberto Humphrey DO Primary Care Provider Reason for Visit * Reason Onset Date Comments Test set up 06/12/2021 Encounter Details Date Type Department Care Team (Late st Contact Info) Description 06/12/2021 Telephone [facility] Cardiology [address] [place] [address] Efren Sawyer MD [address] [place] [address] Test set up Social History Tobacco Use Types Packs/Day Years Used Date Smoking Tobacco: Former Smokeless Tobacco: Never Alcohol Use Standard Drinks/Week Comments Yes 0 (1 standard drink = 0.6 oz pur e alcohol) Sex and Gender Information Value Date Recorded Sex Assigned at Not on file Legal Sex Male 2:20 PM CLOTH SECONDS SORTER Gender Identity Not on file Sexual Orientation Straight 07/05/2021 1: 06 PM CDT documented as of this encounter Miscellaneous Notes * Telephone Encounter - Jazmyne Fan RN - 06/12/2021 2:03 PM CDT Spoke with pt. MJF spoke with pt after his abnormal Stress echo and offered pt a LHC. Pt was not sure about it at first so MJF offered the option of medical treatment. He told pt to think about it and sched a f/u appt to discuss. Pt calls back wanting to proceed with procedure. LHC scheduled. Sending to [facility] as FYI * Telephone Encounter - Yola [place] MA - 06/12/2021 11:05 AM CDT Patient is calling and would like to set up the test the was originally offer to him after his stress test but he does not remember what it was. Patient can be reached at [phone] documented in this encounter Plan of Treatment Not on file documented as of this encounter Visit Diagnoses Not on filedocumented in this encounter Care Teams Body Builder Apprentice Relationship Specialty Start Date End Date Nolberto Humphrey DO PCP - General Internal Medicine 05/03/21 11/19/22 documented as of this encounter
--- OUTSIDE RECORDS SUMMARY | 2024-08-26 05:53 | XMS_ITS | Encounter Summary ---
Author Organization [facility] Address [address] [place] [address] Phone Care Team Providers Care Medical Educator Name Role Phone Olaf Carvajal MD Primary Care Provider [phone] Reason for Visit * Consultation (Routine) - Closed Specialty Diagnoses / Procedures Referred By Jonna chance Referred To Contact Neurology Diagnoses Obstructive sleep apnea syndrome Olaf Carvajal MD [address] [place] [address] Phone: tel: fax: [facility] (All Locations) Referral ID Status Reason Start Date Expiration Date V isits Requested Visits Authorized [id number] Closed Specialty Services Required 07/19/2020 08/18/2021 1 1 Encounter Details Date Type Department Care Team (Late st Contact Info) Description 11/07/2020 1:00 PM MEDICAL CENTER DIRECTOR Telemedicine [facility] Neuro Sleep [address] 6th [address] [place] [phone] Светлана Castillo MD PhD [address] [place] [address] RLS (restless legs syndrome) (Primary Dx); Obstructive sleep apnea syndrome Social History Tobacco Use Types Packs/Day Years Used Date Smoking Tobacco: Former Smokeless Tobacco: Never Alcohol Use Standard Drinks/Week Comments Yes 0 (1 standard drink = 0.6 oz pur e alcohol) Sex and Gender Information Value Date Recorded Sex Assigned at Not on file Legal Sex Male 2:20 PM MEDICAL CENTER DIRECTOR Gender Identity Not on file Sexual Orientation Straight 07/05/2021 1: 06 PM CDT documented as of this encounter Progress Notes * Светлана Castillo MD PhD - 11/07/2020 1:00 PM CST This was a telemedicine visit with Olaf Newell alone which took place via Real-time video connection (InTouch, Zoom or similar). During the visit, I (the attending physician) was located in [place], the resident/fellow was located in [place], and the patient was located in [place]. I waswith the patient during the telehealth session beginning at 1:20 and ending at 1:33. In addition tothe time spent during the session with the patient, I spent 15 minutes on the day of the visit on other activities related to the visit such as preparing to see the patient, counseling and educating the patient/family/caregiver, ordering medications, tests, or procedures, referring and communicating with other healthcare professionals, documenting clinical information in the electronic or other health record, independently interpreting results and communicating the results to the patient/family/caregiver, and/or on care coordination. Total time spend on encounter on the day of the visit by the ATTENDING PHYSICIAN: 28 minutes. The patient has been informed that the visit may not be secure and acknowledged the information. It was explained to the patient that they have the option of participating in a telephone or video visit during the [facility]. After being given an opportunity to ask questionsabout and discuss this type of visit, the patient verbally consented to proceeding with the telephone / video visit. The patient understands that this service replaces an office visit and they may bebilled and/or responsible for any applicable copayments. The resident/fellow talked to the patient during this telehealth encounter, we discussed their findings, and then we called/contacted the patient together. I personally was on the phone/video for thetime period given above. I agree with the findings and plan of care as documented in the resident/fellow's note which I have edited as needed. Greater than 50% of any time I spent on the call/video was spent in counseling and/or coordination of care as documented in the note. Patient Name: OLAF NEWELL Medical Record Number (MRN): [id number] Date of (): 1945 Encounter Date: 11/07/2020 Chief Complaint This is a 75-year-old man with depression and Afib who follows up for obstructive sleep apnea and RLS. HPI He initially underwent PSG on 11/28/2010 which showed moderate ZENA with AHI of 17.7, RDI of 18, and SaO2 alma of 85% with no REM sleep obtained. 96 PLMS/hour were noted. PAP titration during that split showed a pressure of 6 was optimal. Due to compliance issues, he underwent repeat baseline 04/13/2011 with RDI 16.1, AHI 15.6, O2 alma 77%, again no REM and 40 PLMS/hour (wt 242). Few arousals were associated with his PLMS. CPAP titration during that study showed a pressure of 8 to be optimal. At his last visit in 10/2019, he was doing well with PAP, but reported mild RLS symptoms all the time, though it didn't keep him from falling asleep or interfere with activities, wondered if Gralise was helping. He was sleepy and tired all the time. The plan was to order a new AutoPAP machine set to8-10 cm H2O (replacing his old CPAP 8), try stopping Gralise 600mg , and attempt to allow at least 7 hours for sleep. He dandy also restart exercising which previously helped his legs. Since then we received a message from the DME that he decided not to get a new machine for cost reasons. He called in 02/2020 to let us know he was restarting Gralise, but this time it was not approved by insurance, so in 03/2020 he was written for gabapentin 300 to 400mg per evening. Today He continues to take gabapentin 300 mg at bedtime. His RLS symptoms are under control for the most part with this regimen. When he takes gabapentin 400, he experiences next day grogginess. He occasionally has muscle twitching in his legs at night, but it does not impair his ability to go to sleep. He does not experience sudden leg jerks or restless leg during sleep. He usually sleeps through the entire night. Since his symptoms are under control, he would like to try taking a lower dose of gabapentin. He now describes his leg symptoms as feeling small muscle twitches in his legs before bedtime without an urge to move. Without the gabapentin, this is annoying at bedtime and might somewhere interfere with sleep onset. Most of the time with gabapentin 300mg, he doesn't notice them at all. He still feels unrefreshed when he wake up in the morning (but better than without the gabapentin).Generally feels drained during the day. He continues to use his old CPAP machine. He recently lowered the CPAP pressure to 7 because he was recovering from the cataract surgery and was concerned about mask leak into his eyees. He is now alternating a full face mask and nasal pillows due to the maskair leaks. He notices that nasal pillow mask is giving him a very high pressure although he loweredCPAP setting to 4. He is regularly replacing and cleaning supplies. Compliance download not available today, most recent available (for 08/18/19- 09/16/19) shows 30/30 days usage, 100% >4 hours, with average daily usage of 7 hr and 27 min. Median leak 0.2, which is good. Residual AHI 3.8. Bedtime: 11:00 a.m.. It takes < 5 min to fall asleep. Rise time 7:00 a.m. He sleeps through the night. He does not nap during the day. [place] Sleepiness Scale is 11/24. At his last visit 10/2019 on Gralise 600mg 09/01; 09/2018 without meds , 02/2018 on gabapentin it was 12/24; 06/2017 (off clonazepam) it was 15/24. In 2015 when he was asymptomatic, it was a 5. Prior treatments: He developed side effects with clonazepam (dizziness,sedation), though it had been effective with his legs. He feels the gabapentin helps, but is unable to go greater than a dosage of 400 mg due to side effects that include sedation, dizziness and blurry vision. Horizant 300mg helped legs, but maybe blurryvision for an hour after taking the pill? Gralise 600mg initially helped but later not sure (1200mgcaused THOMPSON and dizziness). 02/26/2018 ferritin 118 No Known Allergies Current Outpatient Medications Medication Sig Dispense Refill ??? gabapentin (NEURONTIN) 100 mg capsule Take 3 to 4 capsules nightly 120 capsule 1 No current facility-administered medications for this visit. Patient reports not taking clonazepam Patient Active Problem List Diagnosis ??? Anaclitic depression ??? Osteoarthritis ??? Obstructive sleep apnea syndrome ??? Atrial fibrillation (CMS/HCC) ??? Iron deficiency ??? RLS (restless legs syndrome) Past Medical History: Diagnosis Date ??? 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 Alcohol: 1-2/week Caffeine: 3 cups coffee Exercises 3 days a week Adult children. Rarely drives Review of Systems All other systems are negative except as per the HPI. Vital Signs There were no vitals filed for this visit. Physical Exam GENERAL EXAM: General: Well developed, well nourished, in no acute distress. HEENT: Dentition--fair. Tongue--without scalloped edges. Anicteric sclera. Pulmonary: Breathing comfortably on room air without tachypnea; symmetric chest expansion Integumentary System: Facial skin no irritation or breakouts, no rash. NEUROLOGIC EXAM: Psych/Mental Status: Alert, oriented, normal spontaneous fluent speech with full comprehension. Normal affect Cranial Nerves: Extraocular movements full and conjugate. Face symmetric. No dysarthria or dysphonia. Tongue protrusion midline. Musculoskeletal/Coordination and Gait: Able to rise from a chair, turn, walk, and sit again withoutapparent difficulty. Patient provided vitals: Height: 6' Weight: 242 pounds BP: n/a HR: n/a Note: Exam is limited due to video visit (no telepresenter present) Assessment Assessment Diagnosis Plan 1. RLS (restless legs syndrome) 2. Obstructive sleep apnea syndrome Ambulatory referral to Neurology PSG-Sleep Provider Use Only 75-year-old man with depression and h/o Afib who follows up for RLS treated with gabapentin and OSAcurrently treated with CPAP 8. RLS: his symptoms are under control with gabapentin 300 mg at bedtime without any significant side effects, except possibly causing morning grogginess. He has occasional muscle twitching at night, but it does not impair his ability to sleep. His description today of his symptoms sound somewhat atypical of RLS, however currently symptoms under good control, so will not pursue further wake workup at this time. Since his symptoms are under control, he would like to trying lowering gabapentin to 200 mg, which is not unreasonable. He will let us know if he has to increase the dose back to 300 mg. ZENA: He recently had a cataract surgery and adjusted the CPAP setting to 7 due to concern for leak into the eye. He also bought new nasal pillow mask. He is now alternating a FFM and nasal pillows. The machine appears to be giving him different amount of pressure based on which mask he uses. He continues to feel unrefreshed in the morning and has daytime sleepiness. The current machine is 10 years old. Although a new machine was ordered for the patient, he cancelled the new machine due to cost related issues. Due to the persistent daytime symptoms and the pressure not being consistent, we should check with an in-lab PAP titration study, which patient is agreeable to. At the night of titration study, we will also check with gauge manometer on his old machine to make sure it is giving the correct amount of pressure. Plan 1. Continue gabapentin. May lower it to 200 mg if his symptoms continue to remain under good control. 2. In-lab PAP titration study starting with CPAP 4 cm H2O 3. Check with gauge manometer on his old machine during the titration study. 4. Clean and replace CPAP supplies regularly (part of leak issue with his current full face mask may be due to aging of head gear; cushion was replaced regularly) 5. Healthy diet and exercise discussed 6. Follow-up after the titration study. No follow-ups on file. Thank you for allowing me to participate in the care of your patient. If you have any questions, feel free to contact me. Sincerely, Damaris Bryant, DO Sleep Medicine Fellow I have seen and examined the patient. I agree with the findings and plan of care as documented in the fellow's note which I have edited as needed. Светлана Castillo M.D., Ph.D. [employer] Diplomate, [place] [employer] of Psychiatry and Neurology with added Qualifications in Sleep Medicine CAL CENTER DIRECTOR documented in this encounter Plan of Treatment Not on file documented as of this encounter Visit Diagnoses Diagnosis RLS (restless legs syndrome)- Primary Restless legs syndrome (RLS) Obstructive sleep apnea syndrome Obstructive sleep apnea (adult) (pediatric) documented in this encounter Orders Outpatient Referral Count Last Ordered Date Fir st Ordered Date AMB REFERRAL TO NEUROLOGY 1 11/07/2020 documented in this encounter Care Teams Medical Educator Relationship Specialty Start Date End Date Olaf Carvajal MD [address] [place] [address] PCP - General 11/03/12 05/02/21 documented as of this encounter
--- OUTSIDE RECORDS SUMMARY | 2024-08-26 05:53 | XMS_ITS | Encounter Summary ---
Author Organization [facility] Address [address] [place] [address] Care Team Providers Care Is Project Manager Name Role Phone Nolberto Humphrey DO Primary Care Provider [phone] Encounter Details Date Type Department Care Team (Latest Contact Info) Description 06/30/2021 - 06/30/2021 11:59 PM CDT Hospital Encounter [facility] - Imaging [phone] Discharge Disposition: Discharge to home or self care Social History Tobacco Use Types Packs/Day Years Used Date Smoking Tobacco: Former Smokeless Tobacco: Never Alcohol Use Standard Drinks/Week Comments Yes 0 (1 standard drink = 0.6 oz pur e alcohol) Sex and Gender Information Value Date Recorded Sex Assigned at Not on file Legal Sex Male 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 Gender Identity Not on file Sexual Orientation Straight 07/05/2021 1: 06 PM CDT documented as of this encounter Medications at Time of Discharge gabapentin (NEURONTIN) 100 mg capsule Take 200 mg by mouth daily 09/12/2021 documented as of this encounter Discharge Disposition Disposition Code Departure Means Destination Discharge to home or self care documented in this encounter Plan of Treatment Not on file documented as of this encounter Procedures Procedure Name Priority Date/Time Associated Diagnosis Comments XR TRANSFER OF OUTSIDE FILMS Routine 06/30/2021 12:00 AM CDT Diagnosis unknown documented in this encounter Results * XR Outside Reference (06/30/2021 12:00 AM CDT) Narrative RAD_PACS_OUTSIDE_FILM_[facility] - 07/04/2021 2:27 PM CDT This order has been auto-finalized and does not contain a result. us Not In File Miscellaneous IMG XR PROCEDURES Zayda l Result Performing Organization Address City/State/ZIP Co al Phone Number RAD_PACS_OUTSIDE_FILM_[facility] documented in this encounter Visit Diagnoses Not on filedocumented in this encounter Care Teams Is Project Manager Relationship Specialty Start Date End Date Nolberto Humphrey DO PCP - General Internal Medicine 05/03/21 11/19/22 documented as of this encounter
--- OUTSIDE RECORDS SUMMARY | 2024-08-26 05:53 | XMS_ITS | Encounter Summary ---
Author Organization [facility] Address [address] [place] [address] Care Team Providers Care Fitter Placer Name Role Phone Nolberto Humphrey Primary Care Provider [phone] Reason for Visit * Cardiology (Routine) - Closed Specialty Diagnoses / Procedures Referred By Contac t Referred To Contact Diagnoses Shortness of breath Procedures Echo Exercise Stress W Doppler/CF Efren Sawyer MD [address] [address] Phone: tel: fax: [facility] Referral ID Status Reason Start Date Expiration Date Visits Re quested Visits Authorized [id number] Closed 05/09/2021 06/08/2022 1 1 Encounter Details Date Type Department Care Team (Latest Contact Info) Description 06/08/2021 8:15 AM CDT Ancillary Procedure [facility] Cardiology [address] [place] [phone] Shortness of breath Social History Tobacco Use Types Packs/Day Years Used Date Smoking Tobacco: Former Smokeless Tobacco: Never Alcohol Use Standard Drinks/Week Comments Yes 0 (1 standard drink = 0.6 oz pur e alcohol) Sex and Gender Information Value Date Recorded Sex Assigned at Not on file Legal Sex Male 2:20 PM SENIOR OFFICE SUPPORT ASSISTANT SOSA Gender Identity Not on file Sexual Orientation Straight 07/05/2021 1: 06 PM CDT documented as of this encounter Plan of Treatment Not on file documented as of this encounter Procedures Procedure Name Priority Date/Time Associated Diagnosis Comments STRESS ECHO EXERCISE WO DOPPLER/CF W CONTRAST Routine 06/08/2021 9:16 AM CDT Shortness of breath documented in this encounter Results * STRESS ECHO EXERCISE WO DOPPLER/CF W CONTRAST (06/08/2021 9:16 AM CDT) Anatomical Region Laterality Modality Ultrasound 06/08/2021 8:02 AM CDT Narrative 06/08/2021 12:41 PM CDT [facility] Cardiology [address], [place] [address] [address], [place] [address] P:[phone] P:[phone] Echocardiographic Report Patient Name: OLAF NEWELL : 1945 Study Date: 06/08/2021 8:02:46 AM Gender: M Tech: Location: [place] Ref.Provider: EFREN SAWYER Height(Cm): 183 BSA: 2.31 [...] BP - 180/70. Rate Pressure Product - 71168. METS Achieved - 7.00. Percent Predicted Maximal HR Achieved - 96 %. Interpretation Site: Exam was interpreted at [facility]. Performance: Average exercise functional capacity. Hemodynamic [...] BP - 180/70. Rate Pressure Product - 80727. METS Achieved - 7.00. Percent Predicted Maximal [...] ischemia. Electronically Signed By: Efren Sawyer MD, [facility] 2021-06-08 12:41:16 CDT Procedure Note Efren Sawyer MD - 06/08/2021 [facility] Cardiology [address] [address] [address] [address] [facility], [place] [address] P:[phone] P:[phone] Echocardiographic Report Patient Name: OLAF NEWELLPatient ID: [id number] : [id number] Date: 06/08/2021 8:02:46 AM Gender: MAccession #: [id number] Tech: GMLocation: [place] Ref.Provider: EFREN SAWYERHeight(Cm): 183 BSA: 2.31Weight(Kg): 109.32 [...] BP - 180/70. Rate Pressure Product - 84523. METS Achieved - 7.00.Percent Predicted Maximal HR Achieved - 96 %. Interpretation Site: Exam was interpreted at [facility]. Performance: Average exercise functional capacity. Hemodynamic [...] BP - 180/70. Rate Pressure Product - [id number]. METS Achieved - 7.00.Percent Predicted Maximal HR [...] ischemia. Electronically Signed By: Efren Sawyer MD, [facility] 2021-06-08 12:41:16 CDT us Efren Sawyer MD CV ECHO PROCEDURES Final Result documented in this encounter Visit Diagnoses Diagnosis Shortness of breath documented in this encounter Administered Medications Inactive Administered Medications - up to 3 most recent administrations Medication Order MAR Action Action Date Dose Rate Site perflutren lipid (DEFINITY) 1.5 mL in sodium chloride 0.9% 10 mL syringe 1-10 mL, intravenous, Once in imaging, contrast, Starting on Nathalia 06/08/21 at 0829, For 1 dose Contrast Given 06/08/2021 9:03 AM CDT 1 mL documented in this encounter Orders Medications Ordered That Raphael ht Not Have Been Administered Count Last Ordered Date First Ordered Date perflutren lipid (DEFINITY) 1.5 mL in sodium chloride 0.9% 10 mL syringe 1 06/08/2021 documented in this encounter Care Teams Fitter Placer Relationship Specialty Start Date End Date Nolberto Humphrey DO PCP - General Internal Medicine 05/03/21 11/19/22 documented as of this encounter
--- OUTSIDE RECORDS SUMMARY | 2024-08-26 05:53 | XMS_ITS | Encounter Summary ---
Author Organization [facility] Address [address] [place] [address] Phone Care Team Providers Care Construction And Maintenance Inspector Name Role Phone Olaf Carvajal MD Primary Care Provider [phone] Reason for Visit * Reason Onset Date Comments DME order-supplies 10/27/2019 Encounter Details Date Type Department Care Team (Late st Contact Info) Description 10/27/2019 Documentation [facility] Neuro Sleep [address] 6th [address] [place] [address] Idalmis Au RN DME order-supplies Social History Tobacco Use Types Packs/Day Years Used Date Smoking Tobacco: Former Smokeless Tobacco: Never Alcohol Use Standard Drinks/Week Comments Yes 0 (1 standard drink = 0.6 oz pur e alcohol) Sex and Gender Information Value Date Recorded Sex Assigned at Not on file Legal Sex Male 2:20 PM FURNACE BRAZER Gender Identity Not on file Sexual Orientation Straight 07/05/2021 1: 06 PM CDT documented as of this encounter Progress Notes * Idalmis Au RN - 10/27/2019 8:17 AM CST Faxed DME order to [facility] with all necessary documents. Order scanned with fax confirmation page. ACE BRAZER documented in this encounter Plan of Treatment Not on file documented as of this encounter Visit Diagnoses Not on filedocumented in this encounter Care Teams Construction And Maintenance Inspector Relationship Specialty Start Date End Date Lamar, Olaf M., MD [address] [place] [address] PCP - General 11/03/12 05/02/21 documented as of this encounter
--- OUTSIDE RECORDS SUMMARY | 2024-08-26 05:53 | XMS_ITS | Encounter Summary ---
Author Organization [facility] Address [address] [place] [address] Phone Care Team Providers Care Stain Maker Name Role Phone Olaf Carvajal MD Primary Care Provider [phone] Encounter Details Date Type Department Care Team (Late st Contact Info) Description 11/04/2020 Documentation [facility] Neuro Sleep [address] [place] [address] 6th [address] [place] [phone] Rupinder Villeda [facility] Social History Tobacco Use Types Packs/Day Years Used Date Smoking Tobacco: Former Smokeless Tobacco: Never Alcohol Use Standard Drinks/Week Comments Yes 0 (1 standard drink = 0.6 oz pur e alcohol) Sex and Gender Information Value Date Recorded Sex Assigned at Not on file Legal Sex Male 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 Called sheila felix and saida Auguste pt cancelled CPAP order on 11/03/19 with Thelma CTOR OF GLOBAL MARKETING documented in this encounter Plan of Treatment Not on file documented as of this encounter Visit Diagnoses Not on filedocumented in this encounter Care Teams Stain Maker Relationship Specialty Start Date End Date Olaf Carvajal MD [address] [place] [address] PCP - General 11/03/12 05/02/21 documented as of this encounter
--- OUTSIDE RECORDS SUMMARY | 2024-08-26 05:53 | XMS_ITS | Encounter Summary ---
Author Organization [facility] Address [address] [place] [address] Care Team Providers Care Feed Mill Tender Name Role Phone Nolberto Humphrey DO Primary Care Provider [phone] Encounter Details Date Type Department Care Team (Late st Contact Info) Description 06/30/2021 Orders Only [facility] Cardiology [address] [place] [address] Efren Sawyer MD [address] [place], [place] [id number] Social History Tobacco Use Types Packs/Day Years Used Date Smoking Tobacco: Former Smokeless Tobacco: Never Alcohol Use Standard Drinks/Week Comments Yes 0 (1 standard drink = 0.6 oz pur e alcohol) Sex and Gender Information Value Date Recorded Sex Assigned at Not on file Legal Sex Male 2:20 PM COLLECTION 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 Gender Identity Not on file Sexual Orientation Straight 07/05/2021 1: 06 PM CDT documented as of this encounter Plan of Treatment Not on file documented as of this encounter Procedures Procedure Name Priority Date/Time Associated Diagnosis Comments CARDIOLOGY DOCUMENT SCAN Routine 06/30/2021 documented in this encounter Results * SCAN - CARDIOLOGY (06/30/2021) Anatomical Region Laterality Modality Other Efren Sawyer MD CV CARDIAC SERVICES PROC EDURES Final Result documented in this encounter Visit Diagnoses Not on filedocumented in this encounter Care Teams Feed Mill Tender Relationship Specialty Start Date End Date Nolberto Humphrey DO PCP - General Internal Medicine 05/03/21 11/19/22 documented as of this encounter
--- OUTSIDE RECORDS SUMMARY | 2024-08-26 05:53 | XMS_ITS | Encounter Summary ---
Author Organization [facility] Healthcare Address [address] [place] [address] Care Team Providers Care Development Team Lead Name Role Phone Nolberto Humphrey DO Primary Care Provider [phone] Reason for Visit * Auth/Cert Specialty Diagnoses / Procedures Referred By Contac t Referred To Contact Diagnoses SOB (shortness of breath) Coronary artery disease (CAD) excluded SOB (shortness of breath) [R06.02] Procedures [place] PRQ TRLUML CORONRY CHRONIC OCCLUS REVASC ONE VSL PCI CESAR MAJOR CORONARY C9600 - [id number] Referral ID Status Reason Start Date Expiration Date Visits Re quested Visits Authorized [id number] 1 1 Encounter Details Date Type Department Care Team (Latest Contact Info) Description 07/11/2021 8:36 AM CDT - 07/13/2021 5:00 PM CDT Hospital Encounter [facility] [address] [place] [address] Rosendo Alberts MD [address] [facility] [address] [place], [place] [id number] Coronary artery disease (CAD) excluded (Primary Dx); SOB (shortness of breath); S/P drug eluting coronary stent placement Discharge Disposition: Discharge to home or self care Social History Tobacco Use Types Packs/Day Years Used Date Smoking Tobacco: Former Smokeless Tobacco: Never Alcohol Use Standard Drinks/Week Comments Yes 0 (1 standard drink = 0.6 oz pur e alcohol) Sex and Gender Information Value Date Recorded Sex Assigned at Not on file Legal Sex 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 Gender Identity Not on file Sexual Orientation Straight 07/05/2021 1: 06 PM CDT documented as of this encounter Last Filed Vital Signs Vital Sign Reading Time Taken Comments Blood Pressure 129/62 07/13/2021 8:38 AM CDT Pulse 75 07/13/2021 11:00 AM CDT Temperature 36.9 ??C (98.4 ??F) 07/13/2021 4:24 AM CD T Respiratory Rate 18 07/13/2021 4:24 AM CDT Oxygen Saturation 98% 07/13/2021 8:38 AM CDT Inhaled Oxygen Concentration - - Weight 105.5 kg (232 lb 9.4 oz) 07/13/2021 4:24 AM CDT Height 182.9 cm (6') 07/11/2021 9:20 PM CDT Body Mass Index 31.54 07/11/2021 9:20 PM CDT documented in this encounter Discharge Summaries * Douglas Hopson NP - 07/13/2021 5:00 PM CDT Inpatient Discharge Summary BRIEF OVERVIEW Admitting Provider: Rosendo Alberts MD Discharge Provider: No att. providers found Primary Care Physician at Discharge: Nolberto Humphrey DO [phone] Admission Date: 07/11/2021 Discharge Date: 07/13/2021 Admission Location: [facility] Hospital Problems/Diagnoses: Principal Problem: Dyspnea on effort Active Problems: Coronary artery disease (CAD) excluded SVT (supraventricular tachycardia) (CMS/HCC) ([facility]) Chest pain Sleep apnea DETAILS OF HOSPITAL STAY Presenting Problem/History of Present Illness: Patient presented to his primary nuclear plant technical advisor with complaints of exertional dyspnea. He underwent evaluation with stress echo which demonstrated wall motion abnormalities which were attributed to evidence of ischemia. He was referred for left heart cardiac catheterization. Hospital Course: Patient underwent scheduled cardiac catheterization with Dr. Alberts on 07/11/2021. He underwent successful IVUS guided PCI of the right PDA CT 0 and I this guided PCI of the LAD and of the right PVBusing a total of 4 stents. Post procedure was complicated by tachycardia and has symptoms of palpitations, diaphoresis, and lightheadedness when ambulating from the bathroom back to bed. On telemetryhe was noted to be in SVT and received IV adenosine which improved his rate. He did receive a dose of IV magnesium. He was evaluated by electrophysiology, Dr. Nguyen and who confirmed SVT. And recommended follow-up. He was monitored on telemetry for 1 additional day, and had evidence of atrial fibrillation. He was started on Eliquis for anticoagulation and discharged on a 30 day event monitor. Limited echocardiogram demonstrated normal LV systolic function, EF 65%, normal RV function and no significant pericardial effusion. Active Issues Requiring Follow-up: SVT/atrial fibrillation patient plans to follow-up with EP Dr. Nguyen. Operative Procedures Performed: Procedure(s): PCI CESAR MAJOR CORONARY C9600 - [id number] Pertinent Test Results: Limited echocardiogram on 07/12/2021: Normal LV systolic function, EF 65%, normal RV function, no significant pericardial effusion. Discharge Details Physical Exam at Discharge: Discharge Condition: stable Pulse: 75 Resp: 18 BP: 129/62 Temp: 36.9 ??C (98.4 ??F) Weight: 105.5 kg (232 lb 9.4 oz) Discharge Disposition: Discharge to home or self care Code Status at Discharge: Full Discharge Instructions: Patient to discharge on 30 day event monitor and follow-up with EP in 1 month along with primary nuclear plant technical advisor, Dr. Sawyer in 1 month. Patient to remain on triple therapy (ASA, Plavix, and Eliquis) for 1 week. After 1 week patient candiscontinue aspirin. Activity Instructions Post-Discharge Activity: No strenuous exercise No strenuous exercise for 1 week. Post-Discharge Activity: Start Cardiac Rehab after 4 weeks Post-Discharge Activity: Do not drive car Do not drive car for 48-72 hours Post-Discharge Activity: May shower daily Please shower daily DO NOT submerge groin puncture in bath water for 1 week Diet Instructions Follow a low-sodium heart healthy eating pattern. Consume a diet rich in fruits and vegetables (fresh and frozen are best), whole grains, lean proteins (e.g. chicken, turkey, fish, legumes, etc.), and low-fat/fat-free dairy products. Try to limit fast foods, using the salt shaker, salt in cooking, and added sugars (e.g. from desserts, sodas, sugar-sweetened beverages, juice, etc.). Opt to bake, grill, or boil rather than valladares foods. Call [phone] or [phone] to schedule an appointment with the outpatient dietitian for further diet education needs upon discharge. Other Instructions Call Press Washer for: Breathing Problems --Difficultly breathing at rest, with activity, or at night. --Increased cough. Call Press Washer for: Change in drainage or if drainage starts again when none was present Call Press Washer for: Check incision and call provider for the following: --Any redness, swelling, red streaks around incision/drain, or IV sites or change in appearance or abnormal bleeding. Call Press Washer for: General Problems Chest pain, heaviness, or tightness Chills/fever over 100.4 degrees F Swelling in ankles, legs, or belly --Sweating, weakness, or fainting. --Persistent nausea or vomiting. --Persistent or increasing pain not resolved with medication. --Burning, pain, or urgency with urination. --Weight gain of more than 2 lbs over 2 days. Special Instructions - Medication Safety (see comment) Keep a list of all medications you take including medications you can purchase without a prescription, like vitamins and herbal products. Carry this list with you at all times in case of emergency. Give the list to your primary care doctor. Update the list whenever a medication is discontinued, a new medication is added, or a medication dose has changed. Discharge Medications: Current Medications TAKE these medications apixaban 5 mg tablet Take 1 tablet (5 mg total) by mouth every 12 (twelve) hours For: atrial fibrillation Commonly known as: ELIQUIS aspirin 81 mg enteric coated tablet Take 81 mg by mouth daily clopidogreL 75 mg tablet Take 75 mg by mouth daily Commonly known as: PLAVIX gabapentin 100 mg capsule Take 200 mg by mouth daily Commonly known as: NEURONTIN metoprolol XL 50 mg extended release tablet Take 50 mg by mouth daily Commonly known as: TOPROL-XL rosuvastatin 10 mg tablet Take 10 mg by mouth daily Commonly known as: CRESTOR Outpatient Follow-Up: Future Appointments Date Time Provider Department Center 09/12/2021 1:15 PM Roe Nguyen III, MD [facility] [address] [facility] Contact Information for Follow-ups Roe Nguyen III, MD Specialty: Cardiology, Cardiovascular Disease, Clinical Cardiac Electrophysiology, Internal Medicine [address] [place] [address] [facility] [address] Next Steps: Follow up in 1 month(s) Efren Sawyer MD Specialty: Cardiology, Cardiovascular Disease, Internal Medicine, Interventional Cardiology [address] [place] [address] [facility] [address] Next Steps: Follow up in 1 month(s) [facility] [address] [facility] [address] Next Steps: Follow up Comments: Dr. Rosendo Alberts is patient's Band Director, and will not be managing patient during cardiac rehab. Please contact patient's established Press Washer, Dr. Efren Sawyer, for additional information/medical records. Questions: Please select the performing region: External Order To loc/pos: [facility] Select a phase: Phase 2 # of visits: 1 Referral Status: External - Ready to Schedule Nolberto Humphrey DO Specialty: Internal Medicine, Pediatrics Relationship: PCP - General [address] [place] [id number] Next Steps: Follow up Cosigned by Rosendo Alberts MD at 07/14/2021 3:53 PM CDT documented in this encounter Discharge Instructions * Discharge Instructions* Douglas Hopson NP - 07/13/2021 10:18 AM CDT Patient will remain on triple therapy (ASA, Plavix, and Eliquis for 1 week) Discontinue ASA in 1 week and continue Plavix and Eliquis. Patient will follow up with EP, Dr. Nguyen and primary nuclear plant technical advisor Dr. Sawyer in 3-4 weeks. Activity Instructions Post-Discharge Activity: No strenuous exercise No strenuous exercise for 1 week. Post-Discharge Activity: Start Cardiac Rehab after 4 weeks Post-Discharge Activity: Do not drive car Do not drive car for 48-72 hours Post-Discharge Activity: May shower daily Please shower daily DO NOT submerge groin puncture in bath water for 1 week Diet Instructions Follow a low-sodium heart healthy eating pattern. Consume a diet rich in fruits and vegetables (fresh and frozen are best), whole grains, lean proteins (e.g. chicken, turkey, fish, legumes, etc.), and low-fat/fat-free dairy products. Try to limit fast foods, using the salt shaker, salt in cooking, and added sugars (e.g. from desserts, sodas, sugar-sweetened beverages, juice, etc.). Opt to bake, grill, or boil rather than valladares foods. Call [phone] or [phone] to schedule an appointment with the outpatient dietitian for further diet education needs upon discharge. Other Instructions Call Press Washer for: Breathing Problems --Difficultly breathing at rest, with activity, or at night. --Increased cough. Call Press Washer for: Change in drainage or if drainage starts again when none was present Call Press Washer for: Check incision and call provider for the following: --Any redness, swelling, red streaks around incision/drain, or IV sites or change in appearance or abnormal bleeding. Call Press Washer for: General Problems Chest pain, heaviness, or tightness Chills/fever over 100.4 degrees F Swelling in ankles, legs, or belly --Sweating, weakness, or fainting. --Persistent nausea or vomiting. --Persistent or increasing pain not resolved with medication. --Burning, pain, or urgency with urination. --Weight gain of more than 2 lbs over 2 days. Special Instructions - Medication Safety (see comment) Keep a list of all medications you take including medications you can purchase without a prescription, like vitamins and herbal products. Carry this list with you at all times in case of emergency. Give the list to your primary care doctor. Update the list whenever a medication is discontinued, a new medication is added, or a medication dose has changed. * Attachments The following attachments cannot be sent through Care Everywhere. * After Coronary Angioplasty and Intravascular Stent Placement (Journeyman Power Plant Operator) (Dominican) documented in this encounter Medications at Time of Discharge apixaban (ELIQUIS) 5 mg tabletIndications: atrial fibrillation Take 1 tablet (5 mg total) by mouth every 12 (twelve) hours 60 tablet 3 07/13/2021 01/04/2022 aspirin 81 mg enteric coated tablet Take 81 mg by mouth daily 08/17/2021 clopidogreL (PLAVIX) 75 mg tablet Take 75 mg by mouth daily 08/09/2021 gabapentin (NEURONTIN) 100 mg capsule Take 200 mg by mouth daily 09/12/2021 metoprolol XL (TOPROL-XL) 50 mg extended release tablet Take 50 mg by mouth daily 08/09/2021 rosuvastatin (CRESTOR) 10 mg tablet Take 10 mg by mouth daily 08/09/2021 documented as of this encounter Ordered Prescriptions Prescription Sig Dispense Quantity Refills Last Filled Start Date End Date apixaban (ELIQUIS) 5 mg tabletIndications: atrial fibrillation Take 1 tablet (5 mg total) by mouth every 12 (twelve) hours 60 tablet 3 07/13/2021 01/04/2022 documented in this encounter Discharge Disposition Disposition Code Departure Means Destination Discharge to home or self care documented in this encounter Progress Notes * Star Vaz EP-C - 07/13/2021 11:10 AM CDT Inpatient Cardiac Rehab Education Patient Information Patient Name: Olaf Croft : 1945 Room/Bed: [place] [address] Insurance: [facility] Progress Note News Commentator: EVELYNE Fuentes Date: 07/13/2021 Referring Diagnosis for Cardiac Rehab - S/p drug eluting coronary stent placement (x4) Education Provided Explained my role as a Cardiac Rehab Navigator (CRN). Provided Cardiac Rehab education to pt. Family was not present. Pt was provided with Cardiac Rehab education folder. ?? Risk Factors: Sleep Apnea, Former smoker, Obesity, Family Hx. Discussed and provided resources for managing the above risk factors, as well as managing stress/anxiety/depression. - Briefly discussed cardiac medications, and the importance of medication adherence. Advised pt to consult their nurse, physician, and/or pharmacist if they have any questions about their medications. - Briefly discussed the benefit of lifestyle modifications such as diet (sodium and saturated fats)and exercise. Advised pt to consult their rolled oats mill operator, nurse, and/or physician if they have any questions about their diet/nutrition. ?? Cardiac Rehab: Gave pt options of facilities for Outpatient Cardiac Rehab (OCR) in their community. Explained OCR program. Pt expressed knowledge towards local OCR program - pt prefers [facility] OCR in [place], [place]. I anticipate that insurance/cost could be a potential barrier towards his participation in OCR. Pt states that he does not exercise regularly, but he enjoys staying physically active doing work around his home and work in his garden. Pt informs me that he ambulates well at baseline, without theneed of an assistive device. I stressed the importance/benefits of incorporating regular aerobic exercise into his lifestyle. I explained how this would assist in his recovery post-PCI, and help maintain/improve his cardiovascular health going forward. ?? I advised pt to follow physician instructions/restrictions for post-cath care as prescribed post-discharge. ?? I recommended he try doing 5-10 minutes of light walking, 3x/day post- discharge. I educated pt on how to safely and gradually progress walking as tolerated at home. ?? Exercise Education: Explained the importance of trying to gradually/safely increase exercise tolerance. Educated pt on working towards eventually trying to reach the [place] [employer] recommendations in regardsto exercise: 150+ minutes/week of light to moderate-intensity aerobic exercise, or 75+ minutes/weekof vigorous-intensity aerobic exercise. I explained how this would help to improve cardiovascular function, as well as quality of life. - Explained safe exercise intensities with pt, discussing how using the talk test as a frame of reference in regards to preferable intensity level for general population. - Suggested that pt avoid strenuous exercise/exertion outside if the weather is under 40 degrees, or over 85 degrees. Explained the physiological reasoning for this suggestion. - Educated pt on the signs/symptoms of over-exertion: SOB, chest discomfort, musculoskeletal pain, abnormal fatigue. Explained when it would be appropriate to call Press Washer's office, go to the ER, or call 911. ?? Insurance Coverage: Briefly explained general insurance coverage for OCR, but assured pt that OCR facility will usuallycall insurance and inform pt of more of an approximate coverage. ?? Post-Discharge: Explained process between discharge from hospital, and getting set up in an OCR program - f/u with Press Washer, DEVI f/u calls, OCR program contact. Conclusion Pt seems likely to participate in OCR, pending insurance coverage. Reassured pt of importance and health care provider support of OCR. Pt verbalized understanding of education, and all questions were answered to the best of my ability. Will complete order for OCR to be sent to Press Washer. Thank you for allowing us to seed analysis laboratory assistant in the care of this patient, please don't hesitate to contact the Cardiac Rehab Navigator office with any questions: [phone]. documented in this encounter Consult Notes * Shavonne Lyn NP - 07/12/2021 2:14 PM CDT Consult Note Patient Name: Olaf Croft Date of : 1945 Primary Physician: Nolberto Humphrey DO Chief Complaint SVT HPI Olaf Croft is a 75 y.o. male seen in consultation for SVT. The patient presented with chest pain and shortness of breath and was referred for SIDEWALK INSPECTOR PCI. He underwent successful ivus guided PCIof the right PDA SIDEWALK INSPECTOR, PCI of the LAD, and PCI of the right PVD using four total stents. Electrophysiology consult was requested today due to SVT. He had episode SVT this morning at 7:30 a.m. which was terminated by adenosine. He states for as long as he can remember he has episodes of tachycardia that are terminated by vagal maneuvers. No history of dizziness or syncope. Echocardiogram this admission is currently pending but in the past he had known normal LV function. Past Medical History Past Medical History: Diagnosis Date ??? Adiposity Obesity ??? Hyperlipidemia ??? Hypertension ??? Sleep apnea 2010 - cpap therapy Past Surgical History Past Surgical History: Procedure Laterality Date ??? CARDIAC CATHETERIZATION ??? CATARACT EXTRACTION 2018 - both eyes Medications Medications Prior to Admission Medication Sig Dispense Refill Last Dose ??? aspirin 81 mg enteric coated tablet Take 81 mg by mouth daily 07/10/2021 at Unknown time ??? clopidogreL (PLAVIX) 75 mg tablet Take 75 mg by mouth daily 07/10/2021 at Unknown time ??? gabapentin (NEURONTIN) 100 mg capsule Take 200 mg by mouth daily 07/10/2021 at Unknown time ??? metoprolol XL (TOPROL-XL) 50 mg extended release tablet Take 50 mg by mouth daily 07/10/2021 at Unknown time ??? rosuvastatin (CRESTOR) 10 mg tablet Take 10 mg by mouth daily 07/10/2021 at Unknown time Allergies No Known Allergies Family History Family [...] and Family: Not on file ??? Attends Uatsdin Services: Not on file ??? Active Member of Clubs or Organizations: Not on file ??? Attends Club or Organization Meetings: Not on file ??? Marital Status: Not on file Intimate Partner Violence: ??? Fear of Current or Ex-Partner: Not on file ??? Emotionally Abused: Not on file ??? Physically Abused: Not on file ??? Sexually Abused: Not on file Review of Systems Review of Systems Constitutional: Negative. HENT: Negative. Eyes: Negative. Respiratory: Negative. Cardiovascular: Negative. Gastrointestinal: Negative. Endocrine: Negative. Genitourinary: Negative. Musculoskeletal: Negative. Skin: Negative. Allergic/Immunologic: Negative. Neurological: Negative. Hematological: Negative. Psychiatric/Behavioral: Negative. Objective BP 130/65 (BP Location: Right arm, Patient Position: Lying) Pulse 84 Temp 36.8 ??C (98.2 ??F) (Oral) Resp 20 Ht 182.9 cm (6') Wt 105.6 kg (232 lb 12.9 oz) SpO2 98% BMI 31.57 kg/m?? Physical Exam Constitutional: Appearance: Normal appearance. He is well-developed. HENT: Head: Normocephalic and atraumatic. Right Ear: External ear normal. Left Ear: External ear normal. Nose: Nose normal. Mouth/Throat: Mouth: Mucous membranes are moist. Pharynx: Oropharynx is clear. Eyes: Conjunctiva/sclera: Conjunctivae normal. Pupils: Pupils are equal, round, and reactive to light. Cardiovascular: Rate and Rhythm: Normal rate and regular rhythm. Heart sounds: Normal heart sounds. Pulmonary: Effort: Pulmonary effort is normal. Breath sounds: Normal breath sounds. Abdominal: General: Bowel sounds are normal. Palpations: Abdomen is soft. Musculoskeletal: General: Normal range of motion. Cervical back: Normal range of motion and neck supple. Skin: General: Skin is warm and dry. Neurological: General: No focal deficit present. Mental Status: He is alert and oriented to person, place, and time. Psychiatric: Behavior: Behavior normal. Thought Content: Thought content normal. Judgment: Judgment normal. Diagnostics Recent Labs Lab Units 07/12/21 0746 WBC K/cumm 12.7* HEMOGLOBIN g/dL 12.5* HEMATOCRIT % 36.6* Recent Labs Lab Units 07/12/21 0729 07/12/21 0635 CO2 mmol/L -- 26 CREATININE mg/dL -- 1.07 GLUCOSE mg/dL -- 115 POC GLUCOSE MONITOR mg/dL 125 -- CALCIUM mg/dL -- 9.1 Assessment/Plan 75 y.o. male seen in consultation for SVT PLAN: Patient with an episode SVT this morning terminated by adenosine. Differential diagnosis could include AVNRT, AVRT, or atrial tachycardia. Have discussed with patient options for management. At this time will plan to increase his beta-julia. Due to recent stent placement have him follow-up in our clinic for further management of his SVT. Could consider medication therapy or could consider EP study and ablation in the future. Patient is agreeable to the above plan Cosigned by Roe Nguyen III, MD at 07/13/2021 8:14 AM CDT Associated attestation - Roe Nguyen III, MD - 07/13/2021 8:14 AM CDT * * * The following was dictated with voice-recognition software, and slagger errors may be present: ATTENDING PHYSICIAN ATTESTATION: I saw and examined the patient, and agree with the history, physical, assessment, and plan as outlined above by Ms. Lyn. 75 y/o man seen in consultation at the request of Dr. Alberts for SVT. Pt was admitted for complex PCI after experiencing progressive exertional dyspnea and positive stress test. He underwent multivessel PCI by Dr. Alberts today, which went well. Subsequently he developed SVT with HR 160s-170s. This terminated with adenosine. He felt abrupt onset tacypalpitations and malaise. He has experienced intermittent SVT episodes for many years. He is generally able to control with vagal maneuvers. He has episodes several times per month. No history of ablation. Examination shows no distress. There is no JVD. Heart rhythm is regular. Rate is normal. Lungs are clear. There is no edema. ECG my interpretation shows SVT at 180 bpm. Narrow QRS, normal axis. P waves not clear. Telemetry my interpretation shows sinus rhythm with episode of SVT up to 170s. TTE shows normal LV size/function. Impression: Supraventricular tachycardia. Coronary artery disease, s/p multivessel PCI Normal left ventricular function. Plan: Agree with metoprolol for now. Follow-up with me after discharge to discuss possible diagnostic EP study and SVT ablation. * * * Roe Nguyen III, M.D. Cardiac Electrophysiology [facility] * Rosendo Alberts MD - 07/11/2021 12:28 PM CDT Shortness of breath ?? HPI Olaf Croft is a 75 y.o. male with no [...] because of his back. 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 ?? MEDICAL HISTORY ?? Medical History Past Medical History: Diagnosis Date ??? Adiposity ? Obesity ??? Sleep apnea 2011 - cpap therapy ?? Surgical History Past Surgical History: Procedure Laterality Date ??? CATARACT EXTRACTION ?? 2019 - both eyes ?? Family History Problem Relation Age of Onset ??? Coronary artery disease Father ? Coronary Artery Bypass Graft; ??? Other Father ? Valve Replacement; ??? Heart attack Father ? Myocardial Infarction; Cause of : Myocardial Infarction ?? Social History ?? Socioeconomic History ??? Marital status: ? Spouse name: Not on file ??? Number [...] Social History Narrative ??? Not on file ?? Social Determinants of Health ?? Financial Resource Strain: ??? Difficulty of Paying [...] and Family: Not on file ??? Attends [employer] Services: Not on file ??? Active Member of Clubs or Organizations: Not on file ??? Attends Club or Organization Meetings: Not on file ??? Marital Status: Not on file Intimate Partner Violence: ??? Fear of Current or Ex-Partner: Not on file ??? Emotionally Abused: Not on file ??? Physically Abused: Not on file ??? Sexually Abused: Not on file ?? Prescriptions Prior to Admission (Not in a hospital admission) ?? No Known Allergies ?? REVIEW OF SYSTEMS General ROS: negative for [...] for dry skin, eczema, pruritus and rash ? LABS AND OTHER DIAGNOSTIC TESTS ?? No results found for: WBC, HGB, HCT, MCV, PLT ?? No lab exists for component: LABALBU No results found for: CHOL No results found for: HDL No results found for: LDLCALC No results found for: TRIG No results found for: CHOLHDL ? PHYSICAL EXAM ?? Vitals BP 122/76 (BP Location: Right arm, Patient Position: Sitting) Pulse 90 Ht 182.9 cm (6') Wt 109.3 kg (241 lb) SpO2 97% BMI 32.69 kg/m? General appearance - alert, well appearing, and [...] no rashes, no suspicious skin lesions noted ?? ASSESSMENT ?? Mild exertional dyspnea occurring in this 75-year-old man who is overweight and has sleep apnea. His concern is that these are not symptoms of ischemic disease. Physical exam and resting EKG look okay ?? PLAN/RECOMMENDATIONS ?? Will recommend and schedule a stress echocardiogram to serve to screen for ischemic heart disease. Hopefully this will be negative ?? Efren Sawyer MD documented in this encounter Miscellaneous Notes * Plan of Care - Roxanne Iniguez RN - 07/13/2021 2:01 PM CDT Goals: Clinical Goals for the Shift: monitor tele, vss, keep pt safe Summary: VSS. Tele monitor NSR with pulses in 70's. 2 episode bursts of afib 100-130's for 20-30 seconds (asymptomatic) and back to NSR. Pt going home with 30 day event monitor. Pt aware of need to continuing taking eliquis and follow- up with MD appts. Discharge instructions given and pt verbalizedunderstanding with no further questions. Iv's removed. And pt home via ride service through [employer]. Taken to ride via by PCT. * Plan of Care - Bhakti Espana RN - 07/13/2021 4:44 AM CDT Goals: Clinical Goals for the Shift: monitor vs, tele, labs. comfort, rest, and safety Summary: VSS on room air. NSR, HR 70s. 17 sec run of SVT at 2238, patient converted self back to NSR 70s. No complaints of pain. Cath sites C/D/I. Patient resting, continuing to monitor. Problem: Health Behavior: Goal: Understanding of discharge needs will improve Outcome: Progressing Problem: Cardiac: Goal: Complications related to the disease process, condition or treatment will be avoided or minimized Outcome: Progressing Goal: Hemodynamic stability will improve Outcome: Progressing Problem: Sensory: Goal: Pain level will decrease Outcome: Progressing Problem: Lack of Knowledge: Goal: Knowledge of safety precautions will improve Outcome: Progressing * Plan of Care - Roxanne Iniguez RN - 07/12/2021 5:16 PM CDT Problem: Cardiac: Goal: Complications related to the disease process, condition or treatment will be avoided or minimized Outcome: Progressing Problem: Cardiac: Goal: Hemodynamic stability will improve Outcome: Progressing Goals: monitor tele, vss, keep pt safe, monitor pain Summary: Tele monitor NSR 70-80's throughout Day and VSS. Pt c/o mild discomfort to chest since procedure. Has not worsened. CALENDER WIND UP HELPER called on pt this morning at approx 0715 for SVT 170-180's. Other vs remained stable during CALENDER WIND UP HELPER. Pt felt fluttering in chest and diaphoretic. See Ecg in chart. 2 doses ofAdenosine given per ICU Nurse, which was able to decrease pt's pulse rate. (see vitals flowsheet). Later in day 2gm Mag run given. Pt remains alert and oriented x4. Able to amb in room with SBA. * Significant Event - Asha Coffey PA - 07/12/2021 7:23 AM CDT Rapid Response Team Event Note Reason for CALENDER WIND UP HELPER: tachycardia Time Called: 720 Time Arrived: 722 SUBJECTIVE BRIEF HX: Patient is a 75 y.o. male admitted on 07/11/2021 with CAD and dyspnea and is s/p PCI with stents placed x 4. CALENDER WIND UP HELPER was called 2/2 tachycardia with a HR in the 180s. Pt c/o palpitations, diaphoresis, and lightheadedness after coming back to bed from the bathroom. Pt had some CP overnight and was on a nitro gtt. No other new meds. BMP WNL from 0600. Pt reports a h/o similar sx in the past, but states his episodes have never lasted this long. Pt reports typically he can bear down or cough, and his palpitations will resolve. Pt attempted vagal maneuvers without improvement in sx. denies CP, SOB, fever, chills, n/v/d/c. Past Medical History: Diagnosis Date ??? Adiposity Obesity ??? Hyperlipidemia ??? Hypertension ??? Sleep apnea 2011 - cpap therapy No Known Allergies Objective: VS: Vitals: 07/12/21 0510 BP: 119/71 Pulse: 78 Resp: 20 Temp: 36.9 ??C (98.5 ??F) SpO2: 98% Physical Exam Vitals and nursing note reviewed. Constitutional: Appearance: He is obese. He is ill-appearing and diaphoretic. HENT: Head: Normocephalic and atraumatic. Eyes: General: No scleral icterus. Pupils: Pupils are equal, round, and reactive to light. Cardiovascular: Rate and Rhythm: Regular rhythm. Tachycardia present. Pulses: Normal pulses. Pulmonary: Effort: Pulmonary effort is normal. No respiratory distress. Breath sounds: Normal breath sounds. No wheezing. Musculoskeletal: Right lower leg: No edema. Left lower leg: No edema. Skin: General: Skin is warm. Coloration: Skin is pale. Neurological: General: No focal deficit present. Mental Status: He is alert and oriented to person, place, and time. Diagnostics: The most recent pertinent labs and imaging for this patient have been reviewed. EKG: SVT, HR 178, no stemi Repeat EKG: s/p adenosine, Sinus tachycardia, HR 110, no stemi. Assessment/Plan: 1. Supraventricular Tachycardia 2. CAD s/p PCI with stent placement x 4 SVT with other VSS. BP dropping slightly. 500cc NS bolus started. Adenosine 6mg IV administered x 2. Pt's SVT then broke, and pt returned to NSR with a rate of 85bpm. Pt reports his sx have resolved.Dr. Alberts updated to events. Lab results show a mildly low mag. Will replete. Transferred to higher level of care: Stable to remain on current floor Time Event Ended: 0800 Critical Care Time: 36 minutes of critical care time went into the care and coordination of this patient separate of any other billable procedures. Asha Betina Ulett, PA * Plan of Care - Daniela Solitario RN - 07/12/2021 3:45 AM CDT Goals: Clinical Goals for the Shift: R groin and R radial site care, comfort, no chest pain or nausea Summary: Pt on RA. A&O 4. Admitted 07/11 to [facility] from microbiology lab assistant. 2 stents LAD and 2 stents RCA percath lab. Pt still on nitro gtt for lingering chest pain. Most recent rate 2/10 chest pain. Completed post procedure fluids. R groin and R radial sites. NSR 80-90s. Bedrest ended lastnight 2129. Pt able to move around room independently. R groin and R radial sites no visible bleeding and pulses +2.TTE today. Pt will most likely need to arrange medical ride to get home at discharge since that is how he arrived to hospital. His set up the first ride. Will continue to monitor. Problem: Health Behavior: Goal: Understanding of discharge needs will improve Outcome: Progressing Problem: Cardiac: Goal: Complications related to the disease process, condition or treatment will be avoided or minimized Outcome: Progressing Goal: Hemodynamic stability will improve Outcome: Progressing Problem: Sensory: Goal: Pain level will decrease Outcome: Progressing Problem: Lack of Knowledge: Goal: Knowledge of safety precautions will improve Outcome: Progressing * Post-Procedure Note - Rosendo Alberts MD - 07/11/2021 5:10 PM CDT Images from the original note were not included. [facility] [place] [address], [id number] [place] [address], [address] IVUS and SIDEWALK INSPECTOR PCI Procedure Report 75 year old male with CAD and dyspnea referred for SIDEWALK INSPECTOR PCI. Access:7F Right Femoral Artery and 7F Right Radial Artery Catheter:CLS3.5 Guide, 7F AL1 Guide Injection:Left Main Trunk and Right Coronary Artery Closure:TR band and Perclose Anticoagulation:20995Wygpy Heparin, Clopidogrel and Aspirin Air Kerma:2385 mGy Fluoro time:39 min Contrast:250 ml Optiray Sedation:2mg Versed, 100 mcg fentanyl Procedural details: After risks, benefits, and alternatives to the procedure were explained to the patient, they agreedto proceed. After signing informed consent the patient was brought to the cardiac catheterization laboratory. There were prepped and draped in sterile fashion. A 7 Guyanese sheath was inserted in the Right Femoral Artery and Right Radial Artery using the modified Seldinger technique with ultrasound guidance. We then performed dual selective coronary angiography using various catheters. We then performed IVUS and PCI of the LAD, IVUS and PCI of the Right PDA SIDEWALK INSPECTOR, and PCI of the Right PVB using various catheters. At completion of the case a TR Band and Perclose was placed at the wrist and deployed at the femoral artery with good hemostasis achieved. The patient tolerated the procedure well withno complaints and was transferred to the floor for further monitoring and care. PCI details: Using the CLS3.5 guide catheter, we advanced a Fielder XT wire to the distal LAD via a MC. We used Sasuke to advance Mongo to the apical LAD. IVUS showed diffuse atherosclerosis. We dilated the lesion with a 2.5 X 30mm balloon, stented with the proximal-distal LAD with two overlapping CESAR (3.5 X 32mm Megatron proximal, 2.5 X 38mm Synergy mid-distal), and post dilated with a 3.5 X 30mm NC balloon.Intracoronary nitroglycerin was given for vasospasm. Final angiography revealed no evidence of dissection or perforation. There was LEROY 3 flow and 0% residual stenosis. Using the FR4 Guide catheter we advanced a Fielder XT to the distal PDA through the SIDEWALK INSPECTOR via a MC. IVUS showed diffuse atherosclerosis. We dilated the PDA with a 2.5 X 20mm NC balloon, then a 3.0 X 20mm NC balloon. We stented the PDA with a 3.0 X 38mm Synergy CESAR. We then dilated the Right PVB with a 3.5 X 20mm NC balloon and stented with a 3.5 X 28mm Synergy CESAR. Intracoronary nitroglycerin was given for vasospasm. Final angiography revealed no evidence of dissection or perforation. There was LEROY 3 flow and 0% residual stenosis. A/P: Successful IVUS guided PCI of the Right PDA SIDEWALK INSPECTOR, IVUS guided PCI of the LAD, and PCI of the Right PVB using 4 total stents. Continue aspirin 81 mg indefinitely. 300mg Clopidogrel given in the microbiology lab assistant. Continue 75mg daily for at least 1 year without interruption. Continue to optimize medical therapy and reduce atherosclerotic risk factors. Further management per the medicine and cardiology teams. Rosendo Alberts MD 07/11/2021 5:14 PM * Pre-Sedation Documentation - Rosendo Alberts MD - 07/11/2021 12:27 PM CDT Sedation Plan ASA 2 - Mild systemic disease Mallampati class: II. Risks, benefits, and alternatives discussed with patient. documented in this encounter Plan of Treatment Not on file documented as of this encounter Procedures Procedure Name Priority Date/Time Associated Diagnosis Comments EVENT MONITOR Routine 07/13/2021 1:28 PM CDT EGFR Routine 07/13/2021 4:39 AM CDT MAGNESIUM Routine 07/13/2021 4:39 AM CDT BASIC METABOLIC PANEL Routine 07/13/2021 4:39 AM CDT TRANSTHORACIC ECHO (TTE) LIMITED/FOLLOW UP W LTD DOPPLER/CF WO CONTRAST Routine 07/12/2021 11:28 AM CDT ADD ON LAB TEST Add-On 07/12/2021 7:57 AM CDT ADD ON LAB TEST Add-On 07/12/2021 7:57 AM CDT SEPSIS LACTATE WITH REFLEX STAT 07/12/2021 7:46 AM CDT DIFFERENTIAL AUTO STAT 07/12/2021 7:4 6 AM CDT CBC WITH AUTO DIFFERENTIAL STAT 07/12/2021 7:46 AM CDT POCT GLUCOSE DEVICE Routine 07/12/2021 7 :29 AM CDT ECG 12-LEAD STAT 07/12/2021 7:21 AM CDT Coronary artery disease (CAD) excluded EGFR Routine 07/12/2021 6:35 AM CDT PHOSPHORUS Routine 07/12/2021 6:35 AM CDT MAGNESIUM Routine 07/12/2021 6:35 AM CDT BASIC METABOLIC PANEL Routine 07/12/2021 6:35 AM CDT ECG 12-LEAD Routine 07/11/2021 5:41 PM CDT CESAR MAJOR CORONARY Routine 07/11/2021 5: 12 PM CDT SOB (shortness of breath) POCT ACTIVATED CLOTTING TIME, HIGH RANGE Routine 07/11/2021 4:33 PM CDT POCT ACTIVATED CLOTTING TIME, HIGH RANGE Routine 07/11/2021 4:07 PM CDT DIFFERENTIAL AUTO STAT 07/11/2021 9:2 1 AM CDT CBC WITH AUTO DIFFERENTIAL STAT 07/11/2021 9:21 AM CDT EGFR STAT 07/11/2021 9:08 AM CDT BASIC METABOLIC PANEL STAT 07/11/2021 9:08 AM CDT documented in this encounter Results * Event Monitor, 30 Day Event (07/13/2021 1:28 PM CDT) Anatomical Region Laterality Modality Electrocardiogra phy 08/08/2021 6:00 AM [employer]ION [employer] Narrative 08/10/2021 5:28 PM [employer]AIN[employer] [facility] [place] [address] [place] [address] CARDIAC EVENT MONITOR REPORT Patient Name: OLAF CROFT JOH : 1945 (75y 10m) Study Date: 08/08/2021 6:00:00 AM Gender: M Tech: Location: [address] Ref.Provider: DOUGLAS HOPSON Height(Cm): BSA: Weight(Kg): Order Provider: DOUGLAS HOPSON Procedures: Cardiac Event Monitor: Cardiac Event Monitor. Indications: Palpitations R00.2. Measurements: Findings: Conclusions: 1. Heart rate and rate variability is appropriate. 2. No prolonged pauses. 3. There are events of apparent atrial fibrillation noted. There are also events of SVT noted, cannot determine the exact rhythm. 4. There are no ventricular tachycardia events noted. 5. Number of manually transmitted events: 14. 6. Symptoms associated with manually transmitted events were rapid HR/palpitations/fluttering and chest pain/pressure. 7. Symptomatic episodes were associated with mostly associated with SVT or atrial fibrillation with RVR. Summary: Symptomatic episodes were associated with supraventricular tachycardia and atrial fibrillation. Electronically Signed By: Efren Saravia MD 2021-08-10 17:28:53 [employer] CC: CC: Procedure Note Efren Saravia MD - 08/10/2021 [facility] [place] [address] [address] [place] [address] CARDIAC EVENT MONITOR REPORT Patient Name: OLAF CROFT JOHPatient ID: [id number] : 1945 (75y 10m)Study Date: 08/08/2021 6:00:00 AM Gender: MAccession #: [id number] Tech: Location: [address] Ref.Provider: DOUGLAS HOPSONHeight(Cm): BSA: Weight(Kg): Order Provider: DOUGLAS HOPSON Procedures: Cardiac Event Monitor: Cardiac Event Monitor. Indications: Palpitations R00.2. Measurements: Findings: Conclusions: 1. Heart rate and rate variability is appropriate. 2. No prolonged pauses. 3. There are events of apparent atrial fibrillation noted. There are alsoevents of SVT noted, cannot determine the exact rhythm. 4. There are no ventricular tachycardia events noted. 5. Number of manually transmitted events: 14. 6. Symptoms associated with manually transmitted events were rapid HR/palpitations/fluttering and chest pain/pressure. 7. Symptomatic episodes were associated with mostly associated with SVT oratrial fibrillation with RVR. Summary: Symptomatic episodes were associated with supraventricular tachycardia andatrial fibrillation. Electronically Signed By: Efren Saravia MD 2021-08-10 17:28:53 [employer] CC: CC: us Douglas Jennings NP [facility] [place] OCEDURES Final Result * Magnesium (07/13/2021 4:39 AM CDT) Pathologist [facility] Magnesium 2.1 1.4 - 2.5 mg/dL [facility] Blood 07/13/2021 4:39 AM CDT 07/13/2021 5:13 AM CDT us Rosendo Alberts MD LAB BLOOD ORDERABLES Final Resul t [facility] [address] Department [place] [address] * eGFR (07/13/2021 4:39 AM CDT) eGFR 70 mL/min/1.7 3 m2 [facility] Comment: Interpretive Data Reference Interval Normal ?>/= 90 mL/min/1.73m2 Mildly decreased* ? 60 - 89 mL/min/1.73m2 Mildly to moderately decreased ?45 - 59 mL/min/1.73m2 Moderately to severely decreased ??30 - 44 mL/min/1.73m2 Severely decreased ?15 - 29 mL/min/1.73m2 Kidney Failure ?< 15 ??mL/min/1.73m2 *Relative to young adult level Estimated glomerular filtration rate is determined by the CKD-EPI equation recommended by the National Kidney Foundation (KDIGO 2012 Clinical Practice Guideline for the Evaluation and Management of Chronic Kidney Disease. Kidney Intnl Suppl Sep 2012;3:1). The CKD-EPI equation should not be used for patients with unstable renal function and has not been validated in children and those over 70. Current interpretive data was last reviewed 2020 Blood 07/13/2021 4:39 AM CDT 07/13/2021 5:13 AM CDT us Rosendo Alberts MD LAB BLOOD ORDERABLES Final Resul t [facility] [address] Department [place] [address] * Basic metabolic panel (07/13/2021 4:39 AM CDT) Sodium 143 135 - 145 mmol/L [facility] Potassium, pl 3.8 3.3 - 4.9 mmol/L [facility] Chloride 105 97 - 110 mmol/L [facility] CO2 28 22 - 32 mmol/L [facility] Anion gap 10 2 - 15 mmol/L [facility] BUN 11 8 - 25 mg/dL [facility] Creatinine 1.05 0.80 - 1.30 mg/dL [facility] Glucose 103 70 - 199 mg/dL [facility] Comment: Interpretive Data Fasting glucose >/= 126 mg/dl is diagnostic for diabetes. ?? Fasting is defined as no caloric intake for at least 8 hours. Fasting glucose between 100 mg/dl to 125 mg/dl is diagnostic of prediabetes. In a patient with classic symptoms of hyperglycemia or hyperglycemic crisis, a random glucose >/= 200 mg/dl is diagnostic for diabetes. In the absence of unequivocal hyperglycemia, results should be confirmed by repeat testing. The classification and Diagnosis of Diabetes Diabetes Care 2017;40 (Suppl. 1):S11. Current interpretive data was last revised 2017. Calcium 9.0 8.5 - 10.3 mg/dL [facility] Blood 07/13/2021 4:39 AM CDT 07/13/2021 5:13 AM CDT us Rosendo Alberts MD LAB BLOOD ORDERABLES Final Resul t [facility] [address] Department [place] [address] * TRANSTHORACIC ECHO (TTE) LIMITED/FOLLOW UP W LTD DOPPLER/CF WO CONTRAST (07/12/2021 11:28 AM CDT) Anatomical Region Laterality Modality Ultrasound 07/12/2021 7:18 AM CDT Narrative 07/13/2021 12:08 AM CDT [facility] [place] [address] [address] [place] [address] LIMITED ECHOCARDIOGRAM Patient Name: OLAF CROFT JOHN : 1945 Study Date: 07/12/2021 7:18:11 AM Gender: M Tech: Location: [id number] Ref.Provider: ROSENDO ALBERTS Height(Cm): 183 BSA: Weight(Kg): 105.23 BP: 119/71Order Provider: ROSENDO ALBERTS - Procedures: Echocardiographic Report: Limited TTE. Indications: Pericardial effusion. Measurements: Findings: BP: Blood pressure: 119/71 mmHg. Left Ventricle: Normal global and regional left ventricular systolic function. Ejection Fraction is measured at (Simpsons) 65 %. Right Ventricle: Normal right ventricular systolic function. Pericardium: No significant pericardial effusion. Conclusions: Normal global and regional left ventricular systolic function. Ejection Fraction is measured at (Simpsons) 65 %. Normal right ventricular systolic function. No significant pericardial effusion. Electronically Signed By: Rosendo Alberts MD 2021-07-13 00:08:06 CDT CC: CC: Procedure Note Rosendo Alberts MD - 07/13/2021 [facility] [place] [address] [address] [place] [address] LIMITED ECHOCARDIOGRAM Patient Name: OLAF CROFT JOHNPatient ID: [id number] : [id number] Date: 07/12/2021 7:18:11 AM Gender: MAccession #: [id number] Tech: KPLocation: [id number] Ref.Provider: ROSENDO ALBERTSHeight(Cm): 183 BSA: Weight(Kg): 105.23 BP: 119/71Order Provider: ROSENDO ALBERTS - Procedures: Echocardiographic Report: Limited TTE. Indications: Pericardial effusion. Measurements: Findings: BP: Blood pressure: 119/71 mmHg. Left Ventricle: Normal global and regional left ventricular systolic function. EjectionFraction is measured at (Simpsons) 65 %. Right Ventricle: Normal right ventricular systolic function. Pericardium: No significant pericardial effusion. Conclusions: Normal global and regional left ventricular systolic function. EjectionFraction is measured at (Simpsons) 65 %. Normal right ventricular systolic function. No significant pericardial effusion. Electronically Signed By: Rosendo Alberts MD 2021-07-13 00:08:06 CDT CC: CC: us Rosendo Alberts MD CV ECHO PROCEDURES Final Result * Phosphorus - Add on lab test (07/12/2021 7:57 AM CDT) Acceptable Yes [facility] Blood 07/12/2021 7:57 AM CDT 07/12/2021 7:58 AM CDT [facility]ative [facility] - 07/12/2021 7:58 AM CDT Name of Test->Phosphorus us Asha HOFF LAB BLOOD ORDERABLES Final Result [facility] [address] Department [place] [address] * Magnesium - Add on lab test (07/12/2021 7:57 AM CDT) Acceptable Yes [facility] Blood 07/12/2021 7:57 AM CDT 07/12/2021 7:58 AM CDT Narrative [facility] - 07/12/2021 7:58 AM CDT Name of Test->Magnesium us Asha HOFF LAB BLOOD ORDERABLES Final Result [facility] [address] Department [place] [address] * (ABNORMAL) Differential, auto (07/12/2021 7:46 AM CDT) Neutrophil abs 9.6(H) 1.7 - 6.5 K/cumm [facility] Imm gran abs 0.1 0.0 - 0.1 K/cumm [facility] Lymphocyte abs 2.0 0.8 - 3.3 K/cumm [facility] Monocyte abs 1.0(H) 0.2 - 0.8 K/cumm [facility] Eosinophil abs 0.0 0.0 - 0.5 K/cumm [facility] Basophil abs 0.0 0.0 - 0.1 K/cumm [facility] Neutrophil pct 75.2 % [facility] Comment: Interpretive Data Percent cell count reference ranges are not reported, since discordance with absolute values may lead to misinterpretation of CBC data. Current Interpretive Data was last revised on 2017. Imm gran pct 0.6 % [facility] Comment: Interpretive Data Percent cell count reference ranges are not reported, since discordance with absolute values may lead to misinterpretation of CBC data. Current Interpretive Data was last revised on 2017. Lymphocyte pct 16.0 % [facility] Comment: Interpretive Data Percent cell count reference ranges are not reported, since discordance with absolute values may lead to misinterpretation of CBC data. Current Interpretive Data was last revised on 2017. Monocyte pct 7.9 % [facility] Comment: Interpretive Data Percent cell count reference ranges are not reported, since discordance with absolute values may lead to misinterpretation of CBC data. Current Interpretive Data was last revised on 2017. Eosinophil pct 0.1 % [facility] Comment: Interpretive Data Percent cell count reference ranges are not reported, since discordance with absolute values may lead to misinterpretation of CBC data. Current Interpretive Data was last revised on 2017. Basophil pct 0.2 % [facility] Comment: Interpretive Data Percent cell count reference ranges are not reported, since discordance with absolute values may lead to misinterpretation of CBC data. Current Interpretive Data was last revised on 2017. Blood 07/12/2021 7:46 AM CDT 07/12/2021 8:11 AM CDT us Asha HOFF LAB BLOOD ORDERABLES Final Result Performing Organization Address City/[facility] Co de Phone Number [facility] [address] Department [place] [address] * (ABNORMAL) CBC with auto differential (07/12/2021 7:46 AM CDT) WBC 12.7(H) 3.8 - 9.9 K/cumm [facility] Hgb 12.5(L) 13.0 - 17.5 g/dL [facility] [facility] Hct 36.6(L) 38.9 - 50.3 % [facility] Plt 201 150 - 400 K/cumm [facility] MPV 10.9 9.1 - 12.3 fL [facility] RBC 3.98(L) 4.30 - 5.80 M/cumm [facility] MCV 92.0 81.3 - 96.4 fL [facility] MCH 31.4 27.1 - 33.3 pg [facility] MCHC 34.2 32.3 - 35.7 g/dL [facility] RDW CV 12.7 11.1 - 14.9 % [facility] RDW SD 42.7 35.7 - 48.1 fL [facility] NRBC abs 0.00 0.00 - 0.01 K/cumm [facility] Blood 07/12/2021 7:46 AM CDT 07/12/2021 8:11 AM CDT Asha HOFF LAB BLOOD ORDERABLES Final Result Performing Organization Address City/[facility] Co de Phone Number [facility] [address] Department [place] [address] * Sepsis Lactate w/ Reflex (07/12/2021 7:46 AM CDT) Pathologist [facility] Emergency Department Sepsis Lactate 1.5 0.7 - 2.0 mmol/L [facility] Blood 07/12/2021 7:46 AM CDT 07/12/2021 7:58 AM CDT us Asha HOFF LAB BLOOD ORDERABLES Final Result Performing Organization Address [facility] de Phone Number [facility] [address] [facility] [place] [address] * POCT glucose (07/12/2021 7:29 AM CDT) [facility] Glucose, POC 125 70 - 140 mg/dL [facility] Comment: For Glucose values <35 mg/dl when Hematocrit is >60 mg/dl,the test may not accurately detect significant hypoglycemia,and testing in the Laboratory should be considered if clinically indicated. Blood 07/12/2021 7:29 AM CDT 07/12/2021 7:29 AM CDT us Rosendo Alberts MD LAB POCT ORDERABLES - DEVICE Fin al Result Performing Organization Address [facility] Co de Phone Number [facility] [address] Department [place] [address] * ECG 12 lead (07/12/2021 7:21 AM CDT) 07/12/2021 7:21 AM CDT Narrative [facility] - 07/12/2021 2:11 PM CDT Vent Rate: 179 bpm RR Interval: 334 msec [place] Interval: 0 msec QRS Duration: 91 msec QT Interval: 249 msec QTC Interval: 344 msec P-R-T [place]: 0 - 2 - 0 degrees SUPRAVENTRICULAR TACHYCARDIA NONSPECIFIC ST \T\ T-WAVE ABNORMALITY CRITICAL TEST RESULT Electronically Signed By: Cynthia Jones MD, [facility] us Rosendo Alberts MD ECG ORDERABLES Final Result Performing Organization Address City/[facility]/ZIP Co de Phone Number [facility] * Magnesium (07/12/2021 6:35 AM CDT) Pathologist [facility] Emergency Department Magnesium 1.8 1.4 - 2.5 mg/dL [facility] Blood 07/12/2021 6:35 AM CDT 07/12/2021 6:54 AM CDT Asha HOFF LAB BLOOD ORDERABLES Final Result Performing Organization Address [facility] Co de Phone Number [facility] [address] [place] [address] * Phosphorus (07/12/2021 6:35 AM CDT) [facility] Phosphorus, pl 3.3 2.3 - 4.5 mg/dL [facility] Blood 07/12/2021 6:35 AM CDT 07/12/2021 6:54 AM CDT us Asha HOFF LAB BLOOD ORDERABLES Final Result Performing Organization Address [facility] Co de Phone Number [facility] [address] [place] [address] * eGFR (07/12/2021 6:35 AM CDT) Pathologist [facility] Emergency Department eGFR 68 mL/min/1.7 3 m2 [facility] Comment: Interpretive Data Reference Interval Normal ?>/= 90 mL/min/1.73m2 Mildly decreased* ? 60 - 89 mL/min/1.73m2 Mildly to moderately decreased ?45 - 59 mL/min/1.73m2 Moderately to severely decreased ??30 - 44 mL/min/1.73m2 Severely decreased ?15 - 29 mL/min/1.73m2 Kidney Failure ?< 15 ??mL/min/1.73m2 *Relative to young adult level Estimated glomerular filtration rate is determined by the CKD-EPI equation recommended by the National Kidney Foundation (KDIGO 2012 Clinical Practice Guideline for the Evaluation and Management of Chronic Kidney Disease. Kidney Intnl Suppl Sep 2012;3:1). The CKD-EPI equation should not be used for patients with unstable renal function and has not been validated in children and those over 70. Current interpretive data was last reviewed 2020 Blood 07/12/2021 6:35 AM CDT 07/12/2021 6:54 AM CDT us Rosendo Ricardo KING LAB BLOOD ORDERABLES Final Resul t [facility] [address] Department [place] [address] * Basic metabolic panel (07/12/2021 6:35 AM CDT) Sodium 138 135 - 145 mmol/L [facility] Potassium, pl 3.7 3.3 - 4.9 mmol/L [facility] Chloride 102 97 - 110 mmol/L [facility] CO2 26 22 - 32 mmol/L [facility] Anion gap 10 2 - 15 mmol/L [facility] BUN 12 8 - 25 mg/dL [facility] Creatinine 1.07 0.80 - 1.30 mg/dL [facility] Glucose 115 70 - 199 mg/dL [facility] Comment: Interpretive Data Fasting glucose >/= 126 mg/dl is diagnostic for diabetes. ?? Fasting is defined as no caloric intake for at least 8 hours. Fasting glucose between 100 mg/dl to 125 mg/dl is diagnostic of prediabetes. In a patient with classic symptoms of hyperglycemia or hyperglycemic crisis, a random glucose >/= 200 mg/dl is diagnostic for diabetes. In the absence of unequivocal hyperglycemia, results should be confirmed by repeat testing. The classification and Diagnosis of Diabetes Diabetes Care 2017;40 (Suppl. 1):S11. Current interpretive data was last revised 2017. Calcium 9.1 8.5 - 10.3 mg/dL [facility] Blood 07/12/2021 6:35 AM CDT 07/12/2021 6:54 AM CDT us Rosendo Alberts MD LAB BLOOD ORDERABLES Final Resul t Performing Organization Address City/[facility]/ZIP Co de Phone Number [facility] [address] Department [place] [address] * ECG 12 lead (07/11/2021 5:41 PM CDT) 07/11/2021 5:41 PM CDT Narrative [facility] - 07/12/2021 1:39 PM CDT Vent Rate: 55 bpm RR Interval: 1072 msec [place] Interval: 144 msec QRS Duration: 94 msec QT Interval: 406 msec QTC Interval: 396 msec P-R-T [place]: -3 - 19 - 6 degrees SINUS BRADYCARDIA WITH MARKED SINUS ARRHYTHMIA ST ELEVATION V2 through V6, PROBABLY EARLY REPOLARIZATION; clinical correlation advised BORDERLINE ECG Electronically Signed By: Cynthia Jones MD, [facility] us Rosendo Alberts MD ECG ORDERABLES Final Result Performing Organization Address [facility] de Phone Number [facility] [employer] [facility] [[email or web address]] * CESAR MAJOR CORONARY (07/11/2021 5:12 PM CDT) Anatomical Region Laterality Modality X-Ray Angiograph y Narrative 07/11/2021 5:29 PM CDT [facility] [place] [id number] ?? [place], [place], [address] ?? IVUS and SIDEWALK INSPECTOR PCI Procedure Report 75 year old male with CAD and dyspnea referred for SIDEWALK INSPECTOR PCI. Access:7F Right Femoral Artery and 7F Right Radial Artery Catheter:CLS3.5 Guide, 7F AL1 Guide Injection:Left Main Trunk and Right Coronary Artery Closure:TR band and Perclose Anticoagulation:[id number] Heparin, Clopidogrel and Aspirin Air Kerma:2385 mGy Fluoro time:39 min Contrast:250 ml Optiray Sedation:2mg Versed, 100 mcg fentanyl Procedural details: After risks, benefits, and alternatives to the procedure were explained to the patient, they agreed to proceed. ??After signing informed consent the patient was brought to the cardiac catheterization laboratory. ??There were prepped and draped in sterile fashion. A 7 Guyanese sheath was inserted in the Right Femoral Artery and Right Radial Artery using the modified Seldinger technique with ultrasound guidance. ??We then performed dual selective coronary angiography using various catheters. ??We then performed IVUS and PCI of the LAD, IVUS and PCI of the Right PDA SIDEWALK INSPECTOR, and PCI of the Right PVB using various catheters. ??At completion of the case a TR Band and Perclose was placed at the wrist and deployed at the femoral artery with good hemostasis achieved. ??The patient tolerated the procedure well with no complaints and was transferred to the floor for further monitoring and care. PCI details: Using the CLS3.5 guide catheter, we advanced a Fielder XT wire to the distal LAD via a MC. ??We used Sasuke to advance Mongo to the apical LAD. ?? IVUS showed diffuse atherosclerosis. ??We dilated the lesion with a 2.5 X 30mm balloon, stented with the proximal-distal LAD with two overlapping CESAR (3.5 X 32mm Megatron proximal, 2.5 X 38mm Synergy mid-distal), and post dilated with a 3.5 X 30mm NC balloon. ??Intracoronary nitroglycerin was given for vasospasm. ??Final angiography revealed no evidence of dissection or perforation. ??There was LEROY 3 flow and 0% residual stenosis. Using the FR4 Guide catheter we advanced a Fielder XT to the distal PDA through the SIDEWALK INSPECTOR via a MC. ??IVUS showed diffuse atherosclerosis. ??We dilated the PDA with a 2.5 X 20mm NC balloon, then a 3.0 X 20mm NC balloon. ??We stented the PDA with a 3.0 X 38mm Synergy CESAR. ??We then dilated the Right PVB with a 3.5 X 20mm NC balloon and stented with a 3.5 X 28mm Synergy CESAR. ?Intracoronary nitroglycerin was given for vasospasm. ??Final angiography revealed no evidence of dissection or perforation. ??There was LEROY 3 flow and 0% residual stenosis. A/P: ??Successful IVUS guided PCI of the Right PDA SIDEWALK INSPECTOR, IVUS guided PCI of the LAD, and PCI of the Right PVB using 4 total stents. ??Continue aspirin 81 mg indefinitely. ??300mg Clopidogrel given in the microbiology lab assistant. ??Continue 75mg daily for at least 1 year without interruption. ??Continue to optimize medical therapy and reduce atherosclerotic risk factors. Further management per the medicine and cardiology teams. Rosendo Alberts MD 07/11/2021 5:14 PM us Rosendo Alberts MD CV CARDIAC CATH PROCEDURES Final Result * (ABNORMAL) POC Activated Clotting Time, High Range (07/11/2021 4:33 PM CDT) ACT 313(H) 87 - 138 sec [facility] Blood 07/11/2021 4:33 PM CDT 07/11/2021 4:33 PM CDT us Rosendo Alberts MD LAB BLOOD ORDERABLES Final Resul t Performing Organization Address City/[facility]/ZIP Co de Phone Number [facility] [address] [employer] [place], [place] [id number] * (ABNORMAL) POC Activated Clotting Time, High Range (07/11/2021 4:07 PM CDT) ACT 215(H) 87 - 138 sec [facility] Blood 07/11/2021 4:07 PM CDT 07/11/2021 4:07 PM CDT us Rosendo Alberts MD LAB BLOOD ORDERABLES Final Resul t [facility] [address] [place] [address] * Differential, auto (07/11/2021 9:21 AM CDT) Neutrophil abs 4.7 1.7 - 6.5 K/cumm [facility] Imm gran abs 0.0 0.0 - 0.1 K/cumm [facility] Lymphocyte abs 1.4 0.8 - 3.3 K/cumm [facility] Monocyte abs 0.6 0.2 - 0.8 K/cumm [facility] Eosinophil abs 0.1 0.0 - 0.5 K/cumm [facility] Basophil abs 0.0 0.0 - 0.1 K/cumm [facility] Neutrophil pct 69.7 % [facility] Comment: Interpretive Data Percent cell count reference ranges are not reported, since discordance with absolute values may lead to misinterpretation of CBC data. Current Interpretive Data was last revised on 2017. Imm gran pct 0.4 % [facility] Comment: Interpretive Data Percent cell count reference ranges are not reported, since discordance with absolute values may lead to misinterpretation of CBC data. Current Interpretive Data was last revised on 2017. Lymphocyte pct 20.2 % [facility] Comment: Interpretive Data Percent cell count reference ranges are not reported, since discordance with absolute values may lead to misinterpretation of CBC data. Current Interpretive Data was last revised on 2017. Monocyte pct 8.6 % [facility] Comment: Interpretive Data Percent cell count reference ranges are not reported, since discordance with absolute values may lead to misinterpretation of CBC data. Current Interpretive Data was last revised on 2017. Eosinophil pct 0.7 % [facility] Comment: Interpretive Data Percent cell count reference ranges are not reported, since discordance with absolute values may lead to misinterpretation of CBC data. Current Interpretive Data was last revised on 2017. Basophil pct 0.4 % [facility] Comment: Interpretive Data Percent cell count reference ranges are not reported, since discordance with absolute values may lead to misinterpretation of CBC data. Current Interpretive Data was last revised on 2017. Blood 07/11/2021 9:21 AM CDT 07/11/2021 9:21 AM CDT us Rosendo Alberts MD LAB BLOOD ORDERABLES Final Resul t Performing Organization Address [facility] Co de Phone Number [facility] [address] [place] [address] * CBC with auto differential (07/11/2021 9:21 AM CDT) [facility] WBC 6.8 3.8 - 9.9 K/cumm [facility] Hgb 13.7 13.0 - 17.5 g/dL [facility] Hct 41.8 38.9 - 50.3 % [facility] Plt 200 150 - 400 K/cumm [facility] MPV 11.0 9.1 - 12.3 fL [facility] RBC 4.46 4.30 - 5.80 M/cumm [facility] MCV 93.7 81.3 - 96.4 fL [facility] MCH 30.7 27.1 - 33.3 pg [facility] MCHC 32.8 32.3 - 35.7 g/dL [facility] RDW CV 12.5 11.1 - 14.9 % [facility] RDW SD 42.9 35.7 - 48.1 fL [facility] NRBC abs 0.00 0.00 - 0.01 K/cumm [facility] Blood 07/11/2021 9:21 AM CDT 07/11/2021 9:21 AM CDT us Rosendo Alberts MD LAB BLOOD ORDERABLES Final Resul t Performing Organization Address [facility]/ZIP Co de Phone Number [facility] [address] [place] [address] * eGFR (07/11/2021 9:08 AM CDT) Pathologist [facility] Department eGFR 71 mL/min/1.7 3 m2 [facility] Comment: Interpretive Data Reference Interval Normal ?>/= 90 mL/min/1.73m2 Mildly decreased* ? 60 - 89 mL/min/1.73m2 Mildly to moderately decreased ?45 - 59 mL/min/1.73m2 Moderately to severely decreased ??30 - 44 mL/min/1.73m2 Severely decreased ?15 - 29 mL/min/1.73m2 Kidney Failure ?< 15 ??mL/min/1.73m2 *Relative to young adult level Estimated glomerular filtration rate is determined by the CKD-EPI equation recommended by the National Kidney Foundation (KDIGO 2012 Clinical Practice Guideline for the Evaluation and Management of Chronic Kidney Disease. Kidney Intnl Suppl Sep 2012;3:1). The CKD-EPI equation should not be used for patients with unstable renal function and has not been validated in children and those over 70. Current interpretive data was last reviewed 2020 Blood 07/11/2021 9:08 AM CDT 07/11/2021 9:52 AM CDT us Rosendo Alberts MD LAB BLOOD ORDERABLES Final Resul t [facility] [address] Department [place] [address] * Basic metabolic panel (07/11/2021 9:08 AM CDT) Sodium 142 135 - 145 mmol/L [facility] Potassium, pl 4.0 3.3 - 4.9 mmol/L [facility] Chloride 107 97 - 110 mmol/L [facility] CO2 26 22 - 32 mmol/L [facility] Anion gap 9 2 - 15 mmol/L [facility] BUN 11 8 - 25 mg/dL [facility] Creatinine 1.03 0.80 - 1.30 mg/dL [facility] Glucose 96 70 - 199 mg/dL [facility] Comment: Interpretive Data Fasting glucose >/= 126 mg/dl is diagnostic for diabetes. ?? Fasting is defined as no caloric intake for at least 8 hours. Fasting glucose between 100 mg/dl to 125 mg/dl is diagnostic of prediabetes. In a patient with classic symptoms of hyperglycemia or hyperglycemic crisis, a random glucose >/= 200 mg/dl is diagnostic for diabetes. In the absence of unequivocal hyperglycemia, results should be confirmed by repeat testing. The classification and Diagnosis of Diabetes Diabetes Care 2017;40 (Suppl. 1):S11. Current interpretive data was last revised 2017. Calcium 9.5 8.5 - 10.3 mg/dL [facility] Blood 07/11/2021 9:08 AM CDT 07/11/2021 9:20 AM CDT us Rosendo Alberts MD LAB BLOOD ORDERABLES Final Resul t [facility] [address] Department [place] [address] documented in this encounter Visit Diagnoses Diagnosis Dyspnea on effort- Primary Other dyspnea and respiratory abnormality SOB (shortness of breath) Shortness of breath Coronary artery disease (CAD) excluded Observation for suspected cardiovascular disease S/P drug eluting coronary stent placement Coronary artery disease (CAD) excluded Observation for suspected cardiovascular disease SVT (supraventricular tachycardia) (HCC) Other specified cardiac dysrhythmias Chest pain Unspecified chest pain SOB (shortness of breath) Shortness of breath documented in this encounter Admitting Diagnoses Diagnosis Dyspnea on effort Other dyspnea and respiratory abnormality Coronary artery disease (CAD) excluded Observation for suspected cardiovascular disease Chest pain Unspecified chest pain documented in this encounter Administered Medications Inactive Administered Medications - up to 3 most recent administrations Medication Order MAR Action Action Date Dose Rate Site adenosine (ADENOCARD) 3 mg/mL injection - ADS Override Pull Starting on Sat07/12/21 at 0730, For 1 dose, Created by [email or web address] override adenosine (ADENOCARD) 3 mg/mL injection 6 mg 6 mg, intravenous, Once, On Sat07/12/21 at 0815, For 1 dose Given 07/12/2021 7:35 AM CDT 6 mg adenosine (ADENOCARD) 3 mg/mL injection 6 mg 6 mg, intravenous, Once, On Sat07/12/21 at 0815, For 1 dose Given 07/12/2021 7:34 AM CDT 6 mg apixaban (ELIQUIS) tablet 5 mg 5 mg, oral, Every 12 hours scheduled, First dose on Nathalia 07/13/21 at 1045, Nurse to discontinue heparin infusion order and associated bolus at first administration of apixaban using ? order condition met? order source, Indications: atrial fibrillationIndications:atrial fibrillation Given 07/13/2021 10:53 AM CDT 5 mg aspirin enteric coated tablet 81 mg 81 mg, oral, Daily, First dose on Sat07/11/21 at 2014, Do not crush, chew, cut, dissolve, open or otherwise manipulate tablet/capsule. Given 07/13/2021 9:08 AM CDT 81 mg Given 07/12/2021 8:39 AM CDT 81 mg Given 07/11/2021 9:24 PM CDT 81 mg clopidogreL (PLAVIX) tablet 75 mg 75 mg, oral, Daily, First dose on Sat07/11/21 at 2014 Given 07/13/2021 9:08 AM CDT 75 mg Given 07/12/2021 8:39 AM CDT 75 mg gabapentin (NEURONTIN) capsule 200 mg 200 mg, oral, Daily, First dose on Sat07/11/21 at 2014, Do not crush, break, or open. Given 07/12/2021 8:22 PM CDT 200 mg Given 07/11/2021 9:25 PM CDT 200 mg magnesium sulfate 2 g/50 mL in water (premix) 2 g 2 g, intravenous, Administer over 60 Minutes, Once, On Sat07/12/21 at 0900, For 1 dose New Bag 07/12/2021 9:11 AM CDT 2 g metoprolol XL (TOPROL-XL) extended release tablet 50 mg 50 mg, oral, Daily, First dose on Sat07/11/21 at 2014, Tablets that are scored may be split, but do not crush, chew, dissolve, open or otherwise manipulate tablet/capsule. Given 07/13/2021 9:08 AM CDT 50 mg Given 07/12/2021 8:39 AM CDT 50 mg Given 07/11/2021 9:24 PM CDT 50 mg nitroglycerin in dextrose 5% 50 mg/250 mL (200 mcg/mL) infusion (premix) Continuous PRN, Starting on Sat07/11/21 at 1716, Intra-Procedure (CV) Rate/Dose Change 07/12/2021 6:09 AM CDT 20 mcg/min 6 mL/hr Rate/Dose Verify 07/12/2021 2:38 AM CDT 30 mcg/min 9 mL/hr New Bag 07/11/2021 5:16 PM CDT 30 mcg/min 9 mL/hr ondansetron (ZOFRAN) injection 4 mg 4 mg, intravenous, Administer over 2 Minutes, Every 4 hours PRN, nausea, vomiting, Starting on Sat07/11/21 at 1957 rosuvastatin (CRESTOR) tablet 10 mg 10 mg, oral, Daily, First dose on Sat07/11/21 at 2015 Given 07/13/2021 9:08 AM CDT 10 mg Given 07/12/2021 8:40 AM CDT 10 mg Given 07/11/2021 9:25 PM CDT 10 mg sodium chloride 0.9% bolus 500 mL 500 mL, intravenous, Once, On Sat07/12/21 at 0815, For 1 dose New Bag 07/12/2021 7:39 AM CDT 500 mL sodium chloride 0.9% infusion 15 mL/hr, intravenous, Continuous, Starting on Sat07/11/21 at 0930Indications:SOB (shortness of breath) New Bag 07/11/2021 9:11 AM CDT 15 mL/hr 15 mL/hr sodium chloride 0.9% infusion 100 mL/hr, intravenous, Continuous, Starting on Sat07/11/21 at 1745, For 10 hours, Recovery (CV) New Bag 07/11/2021 8:33 PM CDT 100 mL/hr 100 mL/hr documented in this encounter Historical Medications * This list may reflect changes made after this encounter. rosuvastatin (CRESTOR) 10 mg tablet Take 10 mg by mouth daily 08/09/2021 metoprolol XL (TOPROL-XL) 50 mg extended release tablet Take 50 mg by mouth daily 08/09/2021 aspirin 81 mg enteric coated tablet Take 81 mg by mouth daily 08/17/2021 clopidogreL (PLAVIX) 75 mg tablet Take 75 mg by mouth daily 08/09/2021 added in this encounter Active and Recently Administered Medications Times are shown in CDT. Scheduled Medication Order 07/11/2021 07/12/2021 07/13/2021 adenosine (ADENOCARD) 3 mg/mL injection 6 mg (COMPLETED) 6 mg, intravenous, Once, On Sat07/12/21 at 0815, For 1 dose 0735 (Given - Provider: Mouna Courtney, NAZIA) adenosine (ADENOCARD) 3 mg/mL injection 6 mg (COMPLETED) 6 mg, intravenous, Once, On Sat07/12/21 at 0815, For 1 dose 0734 (Given - Provider: Mouna Courtney, NAZIA) apixaban (ELIQUIS) tablet 5 mg 5 mg, oral, Every 12 hours scheduled, First dose on Nathalia 07/13/21 at 1045, Nurse to discontinue heparin infusion order and associated bolus at first administration of apixaban using ? order condition met? order source, Indications: atrial fibrillation 1053 (Given - Provider: Roxanne Iniguez RN) aspirin enteric coated tablet 81 mg 81 mg, oral, Daily, First dose on Sat07/11/21 at 2014, Do not crush, chew, cut, dissolve, open or otherwise manipulate tablet/capsule. 2123 (Given - Provider: Daniela Solitario RN) 0839 (Given - Provider: Roxanne Iniguez RN) 0908 (Given - Provider: Roxanne Iniguez RN) clopidogreL (PLAVIX) tablet 75 mg 75 mg, oral, Daily, First dose on Sat07/11/21 at 2014 2031 (Not Given - Provider: Daniela Solitario RN - Reason: Patient/family refused) 0839 (Given - Provider: Roxanne Iniguez RN) 0908 (Given - Provider: Roxanne Iniguez, NAZIA) gabapentin (NEURONTIN) capsule 200 mg 200 mg, oral, Daily, First dose on Sat07/11/21 at 2014, Do not crush, break, or open. 2124 (Given - Provider: Daniela Solitario RN) 2021 (Given - Provider: Bhakti Espana RN) magnesium sulfate 2 g/50 mL in water (premix) 2 g (COMPLETED) 2 g, intravenous, Administer over 60 Minutes, Once, On Sat07/12/21 at 0900, For 1 dose 0911 (New Bag - Provider: Roxanne Iniguez, NAZIA) metoprolol XL (TOPROL-XL) extended release tablet 50 mg 50 mg, oral, Daily, First dose on Sat07/11/21 at 2014, Tablets that are scored may be split, but do not crush, chew, dissolve, open or otherwise manipulate tablet/capsule. 2123 (Given - Provider: Daniela Solitario RN) 0839 (Given - Provider: Roxanne Iniguez, NAZIA) 0908 (Given - Provider: Roxanne Iniguez, NAZIA) rosuvastatin (CRESTOR) tablet 10 mg 10 mg, oral, Daily, First dose on Sat07/11/21 at 2014 2124 (Given - Provider: Daniela Solitario, NAZIA) 0840 (Given - Provider: Roxanne Iniguez, NAZIA) 0908 (Given - Provider: Roxanne Iniguez, NAZIA) sodium chloride 0.9% bolus 500 mL (COMPLETED) 500 mL, intravenous, Once, On Sat07/12/21 at 0815, For 1 dose 0739 (New Bag - Provider: Mouna Courtney, NAZIA)0807 (Stopped - Provider: Roxanne Iniguez, NAZIA) Continuous Medication Order 07/11/2021 07/12/2021 07/13/2021 sodium chloride 0.9% infusion (CANCELED) 15 mL/hr, intravenous, Continuous, Starting on Sat07/11/21 at 0930 0911 (New Bag - Provider: Cathy Orourke RN) sodium chloride 0.9% infusion () 100 mL/hr, intravenous, Continuous, Starting on Sat07/11/21 at 1745, For 10 hours, Recovery (CV) 2032 (New Bag - Provider: Daniela Solitario, NAZIA) 0238 (Stopped - Provider: Daniela Solitario, NAZIA) PRN Medication Order 07/11/2021 07/12/2021 07/13/2021 clopidogreL (PLAVIX) tablet (CANCELED) As needed, Starting on Sat07/11/21 at 1716, Intra-Procedure (CV) 1716 (Given - Provider: Francisco Rene RN) fentaNYL (SUBLIMAZE) preservative free injection (CANCELED) As needed, Starting on Sat07/11/21 at 1447, Intra-Procedure (CV) 1447 (Given - Provider: Francisco Rene RN)1513 (Given - Provider: Francisco Rene, RN)1657 (Given - Provider: Francisco Rene, RN) heparin 1,000 unit/mL injection (CANCELED) As needed, Starting on Sat07/11/21 at 1513, Intra-Procedure (CV) 1513 (Given - Provider: Rosendo Alberts MD)1522 (Given - Provider: Francisco Rene, RN)1612 (Given - Provider: Francisco Rene, NAZIA) heparin in 0.9% sodium chloride 1,000 units/500 mL (2 unit/mL) infusion (premix) (CANCELED) As needed, Starting on Sat07/11/21 at 1421, Intra-Procedure (CV) 1421 (Given - Provider: Rosendo Alberts MD - Comment: back table flush) ioversoL (OPTIRAY 350) injection (CANCELED) As needed, Starting on Sat07/11/21 at 1718, Intra-Procedure (CV) 1718 (Given - Provider: Rosendo Alberts MD) midazolam (VERSED) 1 mg/mL preservative free injection (CANCELED) Administer over 2 Minutes, As needed, Starting on Sat07/11/21 at 1448, Intra-Procedure (CV) 1448 (Given - Provider: Francisco Rene RN)1513 (Given - Provider: Francisco Rene, NAZIA) niCARdipine (CARDENE) 500 mcg/5 mL in sodium chloride 0.9% (premix) (CANCELED) As needed, Starting on Sat07/11/21 at 1513, Intra-Procedure (CV) 1513 (Given - Provider: Rosendo Alberts MD) nitroglycerin in dextrose 5% 50 mg/250 mL (200 mcg/mL) infusion (premix) (COMPLETED) Continuous PRN, Starting on Sat07/11/21 at 1716, Intra-Procedure (CV) 1716 (New Bag - Provider: Francisco Rene RN)2032 (Continue to Inpatient Floor - Provider: Daniela Solitario, NAZIA - Comment: pt still having 2/10 chest pain) 0238 (Rate/Dose Verify - Provider: Daniela Solitario RN)0609 (Rate/Dose Change - Provider: Daniela Solitario RN - Comment: pt rating chest paiin 09/18)0715 (Stopped - Provider: Mouna Courtney RN) nitroglycerin injection 100 mcg/mL in D5W 10 mL (CANCELED) As needed, Starting on Sat07/11/21 at 1513, Intra-Procedure (CV) 1513 (Given - Provider: Rosendo Alberts MD)1631 (Given - Provider: Rosendo Alberts MD)1652 (Given - Provider: Rosendo Alberts MD) ondansetron (ZOFRAN) injection 4 mg 4 mg, intravenous, Administer over 2 Minutes, Every 4 hours PRN, nausea, vomiting, Starting on Sat07/11/21 at 1957 sodium chloride 0.9% infusion (COMPLETED) Continuous PRN, Starting on Sat07/11/21 at 1715, Intra-Procedure (CV) 1715 (New Bag - Provider: Francisco Rene RN - Comment: x 10 hrs)2032 (Stopped - Provider: Daniela Solitario RN) documented in this encounter Orders Medications Ordered That Raphael ht Not Have Been Administered Count Last Ordered Date First Ordered Date clopidogreL (PLAVIX) tablet 1 07/11/2021 fentaNYL (SUBLIMAZE) preserv ative free injection 1 07/11/2021 heparin 1,000 unit/mL injection 1 heparin in 0.9% sodium chlor whit 1,000 units/500 mL (2 unit/mL) infusion (premix) 1 07/11/2021 ioversoL (OPTIRAY 350) injection 1 07/11/20 midazolam (VERSED) 1 mg/mL p reservative free injection 1 07/11/2021 niCARdipine (CARDENE) 500 mc g/5 mL in sodium chloride 0.9% (premix) 1 07/11/2021 nitroglycerin injection 100 mcg/mL in D5W 10 mL 1 07/11/2021 ondansetron (ZOFRAN) injection 4 mg 1 07/11 sodium chloride 0.9% infusion 1 07/11/2021 Nursing Count Last Ordered Date First Orde red Date NURSING COMMUNICATION 2 07/11/2021 TELEMETRY MONITORING 1 07/11/2021 Admission Count Last Ordered Date First Orde red Date ADMIT TO INPATIENT 1 07/12/2021 INITIATE OUTPATIENT IN A BED 1 07/11/2021 Discharge Count Last Ordered Date First Orde red Date DISCHARGE PATIENT 1 07/13/2021 CORE MEASURES Count Last Ordered Date First Ord ered Date REASON FOR NO VTE PROPHYLAXIS AT ADMISSION 1 07/11/2021 documented in this encounter Care Teams Development Team Lead Relationship Specialty Start Date End Date Nolberto Humphrey DO PCP - General Internal Medicine 05/03/21 11/19/22 documented as of this encounter
--- OUTSIDE RECORDS SUMMARY | 2024-08-26 05:53 | XMS_ITS | Encounter Summary ---
Author Organization [facility] Address [address] [place] [address] Phone Care Team Providers Care In Service Coordinator Name Role Phone Olaf Carvajal MD Primary Care Provider [phone] Encounter Details Date Type Department Care Team (Late st Contact Info) Description 03/05/2018 Telephone [facility] Neuro Sleep [address] [place] [address] Cindy Churchill RMA Social History Tobacco Use Types Packs/Day Years Used Date Smoking Tobacco: Former Smokeless Tobacco: Never Alcohol Use Standard Drinks/Week Comments Yes 0 (1 standard drink = 0.6 oz pur e alcohol) Sex and Gender Information Value Date Recorded Sex Assigned at Not on file 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 I answered questions . Response will be faxed documented in this encounter Plan of Treatment Not on file documented as of this encounter Visit Diagnoses Not on filedocumented in this encounter Care Teams In Service Coordinator Relationship Specialty Start Date End Date Olaf Carvajal MD [address] [place] [address] PCP - General 11/03/12 05/02/21 documented as of this encounter
--- OUTSIDE RECORDS SUMMARY | 2024-08-26 05:53 | XMS_ITS | Encounter Summary ---
Author Organization [facility] Address [address] [place] [address] Phone Care Team Providers Care Brassiere Cup Mold Cutter Name Role Phone Olaf Carvajal MD Primary Care Provider [phone] Reason for Visit * Reason Onset Date Comments [facility] PA 03/04/2018 Encounter Details Date Type Department Care Team (Late st Contact Info) Description 03/04/2018 Documentation [facility] Neuro Sleep [address] 6[address] [place] [address] Idalmis Au RN [facility] PA Social History Tobacco Use Types Packs/Day Years Used Date Smoking Tobacco: Former Smokeless Tobacco: Never Alcohol Use Standard Drinks/Week Comments Yes 0 (1 standard drink = 0.6 oz pur e alcohol) Sex and Gender Information Value Date Recorded Sex Assigned at Not on file 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 documented in this encounter Plan of Treatment Not on file documented as of this encounter Visit Diagnoses Not on filedocumented in this encounter Care Teams Brassiere Cup Mold Cutter Relationship Specialty Start Date End Date Olaf Carvajal MD [address] [place] [id number] PCP - General 11/03/12 05/02/21 documented as of this encounter
--- OUTSIDE RECORDS SUMMARY | 2024-08-26 05:53 | XMS_ITS | Encounter Summary ---
Author Organization [facility] Address [address] [place] [address] Phone Care Team Providers Care Mobile Development Manager Name Role Phone Olaf Carvajal MD Primary Care Provider [phone] Nolberto Humphrey DO Primary Care Provider [phone] Leatha Silvestre MD Primary Care Provider [phone] Ciaran Rizo MD Primary Care Provider [phone] Encounter Details Date Type Department Care Team (Latest Contact Info) Description 09/16/2019 Orders Only [facility] Scanning, Provider Social History Tobacco Use Types Packs/Day Years Used Date Smoking Tobacco: Former Smokeless Tobacco: Never Alcohol Use Standard Drinks/Week Comments Yes 0 (1 standard drink = 0.6 oz pur e alcohol) Sex and Gender Information Value Date Recorded Sex Assigned at Not on file 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 Gender Identity Not on file Sexual Orientation Straight 07/05/2021 1: 06 PM CDT documented as of this encounter Plan of Treatment Not on file documented as of this encounter Procedures Procedure Name Priority Date/Time Associated Diagnosis Comments SLEEP LAB/STUDY - RESULT 09/16/2019 documented in this encounter Results * SLEEP LAB/STUDY - RESULT (09/16/2019) us Provider Scanning Final Result documented in this encounter Visit Diagnoses Not on filedocumented in this encounter Care Teams Mobile Development Manager Relationship Specialty Start Date End Date Olaf Carvajal MD [address] [place] [address] PCP - General 11/03/12 05/02/21 Nolberto Humphrey DO [address] [place] [address] PCP - General Internal Medicine 05/03/21 11/19/22 Leatha Silvestre MD [address] [place] [address] PCP - General Internal Medicine 11/20/22 05/20/23 Ciaran Rizo MD [address] [place] [address] PCP - General Family Practice 05/21/23 documented as of this encounter
--- OUTSIDE RECORDS SUMMARY | 2024-08-26 05:53 | XMS_ITS | Encounter Summary ---
Author Organization [facility] Healthcare Address [address] [place] [address] Care Team Providers Care Cocoa Milling Machine Operator Name Role Phone Nolberto Humphrey DO Primary Care Provider [phone] Reason for Visit * Auth/Cert Specialty Diagnoses / Procedures Referred By Contac t Referred To Contact Diagnoses SOB (shortness of breath) Coronary artery disease (CAD) excluded SOB (shortness of breath) [R06.02] Procedures PA PRQ TRLUML CORONRY CHRONIC OCCLUS REVASC ONE VSL PCI CESAR MAJOR CORONARY C9600 [id number] Referral ID Status Reason Start Date Expiration Date Visits Re quested Visits Authorized [id number] 1 1 Encounter Details Date Type Department Care Team (Late st Contact Info) Description 07/11/2021 10:30 AM CDT - 07/11/2021 12:30 PM CDT Surgery [facility] [address] [place] [phone] Rosendo Alberts MD [address] [place] [address] PCI CESAR MAJOR CORONARY C9600 - [id number] Surgery Details Date/Time Status Location OR Service Patient Class Case Class Case Type Trauma Case? 07/11/2021 10:30 AM Posted [facility] CARDIAC FOOD CONCESSION MANAGER HYBRID E Cardiovascular Outpatient Elective Panel 1 Procedure LRB Anes Op Region Wound Class Comments PCI CESAR MAJOR CORONARY C9600 - [id number] N/A Conscious Sedation Surgeon Surgeon Role Service Panel Rosendo Alberts MD Primary Cardiovascular 1 Case Notes ORDERS ENTEREDEssence NPR - Referral In documented in this encounter Social History Tobacco Use Types Packs/Day Years Used Date Smoking Tobacco: Former Smokeless Tobacco: Never Alcohol Use Standard Drinks/Week Comments Yes 0 (1 standard drink = 0.6 oz pur e alcohol) Sex and Gender Information Value Date Recorded Sex Assigned at Not on file Legal Sex Male 2:20 PM PERFORMANCE IMPROVEMENT CONSULTANT Gender Identity Not on file Sexual Orientation Straight 07/05/2021 1: 06 PM CDT documented as of this encounter Last Filed Vital Signs Vital Sign Reading Time Taken Comments Blood Pressure 138/75 07/11/2021 9:31 AM CDT Pulse 59 07/11/2021 9:31 AM CDT Temperature 37.2 ??C (99 ??F) 07/11/2021 9:16 AM CDT Respiratory Rate 22 07/11/2021 12:0 0 PM CDT Oxygen Saturation 98% 07/11/2021 9:31 AM CDT Inhaled Oxygen Concentration - - Weight 106.5 kg (234 lb 12.8 oz) 07/11/2021 9:16 AM CDT Height 182.9 cm (6') 07/11/2021 9:16 AM CDT Body Mass Index 31.54 07/11/2021 9:20 PM CDT documented in this encounter Discharge Summaries * Douglas Hopson NP - 07/13/2021 5:00 PM CDT Inpatient Discharge Summary BRIEF OVERVIEW Admitting Provider: Rosendo Alberts MD Discharge Provider: No att. providers found Primary Care Physician at Discharge: Nolberto Humphrey DO [phone] Admission Date: 07/11/2021 Discharge Date: 07/13/2021 Admission Location: [facility] Problems/Diagnoses: Principal Problem: Dyspnea on effort Active Problems: Coronary artery disease (CAD) excluded SVT (supraventricular tachycardia) (CMS/HCC) (HCC) Chest pain Sleep apnea DETAILS OF HOSPITAL STAY Presenting Problem/History of Present Illness: Patient presented to his primary vehicle trimmer with complaints of exertional dyspnea. He underwent [...] Procedure(s): PCI CESAR MAJOR CORONARY C9600 - [id number] Pertinent Test Results: Limited echocardiogram on 07/12/2021: [...] EP in 1 month along with primary vehicle trimmer, Dr. Sawyer in 1 month. Patient to [...] or boil rather than valladares foods. Call [phone] or [phone] to schedule an appointment with the outpatient dietitian for further diet education needs upon discharge. Other Instructions Call Sort Supervisor for: Breathing Problems --Difficultly breathing at rest, with activity, or at night. --Increased cough. Call Sort Supervisor for: Change in drainage or if drainage starts again when none was present Call Sort Supervisor for: Check incision and call provider for the following: --Any redness, swelling, red streaks around incision/drain, or IV sites or change in appearance or abnormal bleeding. Call Sort Supervisor for: General Problems Chest pain, heaviness, or [...] 09/12/2021 1:15 PM Roe Nguyen III, MD Arrtr [address] [facility] Decent Contact Information for Follow-ups Roe Nguyen III, MD Specialty: Cardiology, Cardiovascular Disease, Clinical Cardiac Electrophysiology, Internal Medicine [address] [place] [address] [facility] [address] Next Steps: Follow up in 1 month(s) Efren Sawyer MD Specialty: Cardiology, Cardiovascular Disease, Internal Medicine, Interventional Cardiology [address] [place] [address] [facility] [address] Next Steps: Follow up in 1 month(s) [facility] [address] [facility] [address] Next Steps: Follow up Comments: Dr. Rosendo Alberts is patient's Trimmer Hand, and will not be managing patient during cardiac rehab. Please contact patient's established Sort Supervisor, Dr. Efren Sawyer, for additional information/medical records. Questions: Please select the performing region: External Order To loc/pos: [facility] Select a phase: Phase 2 # of visits: 1 Referral Status: External - Ready to Schedule Nolberto Humphrey DO Specialty: Internal Medicine, Pediatrics Relationship: PCP - General [address] [facility] [place] [address] Next Steps: Follow up Cosigned by Rosendo [...] up with EP, Dr. Nguyen and primary vehicle trimmer Dr. Sawyer in 3-4 weeks. Activity Instructions [...] or boil rather than valladares foods. Call [phone] or [phone] to schedule an appointment with the outpatient dietitian for further diet education needs upon discharge. Other Instructions Call Sort Supervisor for: Breathing Problems --Difficultly breathing at rest, with activity, or at night. --Increased cough. Call Sort Supervisor for: Change in drainage or if drainage starts again when none was present Call Sort Supervisor for: Check incision and call provider for the following: --Any redness, swelling, red streaks around incision/drain, or IV sites or change in appearance or abnormal bleeding. Call Sort Supervisor for: General Problems Chest pain, heaviness, or [...] After Coronary Angioplasty and Intravascular Stent Placement (Fingerprint Clerk) (Haitian) documented in this encounter Medications at Time [...] Patient Name: Olaf Croft : 1945 Room/Bed: [place] [address]/[address] Insurance: [facility] Progress Note Health Promotion Educator: EVELYNE Fuentes Date: 07/13/2021 Referring Diagnosis for [...] fats)and exercise. Advised pt to consult their distributor advertising material, nurse, and/or physician if they have any questions about their diet/nutrition. ?? Cardiac Rehab: Gave pt options of facilities for Outpatient Cardiac Rehab (OCR) in their community. Explained OCR program. Pt expressed knowledge towards local OCR program - pt prefers [facility] OCR in [place], [place]. I anticipate that insurance/cost could be [...] working towards eventually trying to reach the [place] [employer] recommendations in regardsto exercise: 150+ [...] when it would be appropriate to call Sort Supervisor's office, go to the ER, or call 911. ?? Insurance Coverage: Briefly explained general insurance coverage for OCR, but assured pt that OCR facility will usuallycall insurance and inform pt of more of an approximate coverage. ?? Post-Discharge: Explained process between discharge from hospital, and getting set up in an OCR program - f/u with Sort Supervisor, DEVI f/u calls, OCR program contact. Conclusion Pt seems likely to participate in OCR, pending insurance coverage. Reassured pt of importance and health care provider support of OCR. Pt verbalized understanding of education, and all questions were answered to the best of my ability. Will complete order for OCR to be sent to Sort Supervisor. Thank you for allowing us to web production assistant in the care of this patient, please don't hesitate to contact the Cardiac Rehab Navigator office with any questions: [phone]. documented in this encounter Consult Notes * Shavonne Lyn NP - 07/12/2021 2:14 PM CDT Consult Note Patient Name: Olaf Croft Date of : 1945 Primary Physician: Nolberto Humphrey DO Chief Complaint SVT HPI Olaf Croft is a 75 y.o. male seen in consultation for SVT. The patient presented with chest pain and shortness of breath and was referred for PASSENGER CAR CLEANING SUPERVISOR PCI. He underwent successful ivus guided PCIof the right PDA PASSENGER CAR CLEANING SUPERVISOR, PCI of the LAD, and PCI of [...] and Family: Not on file ??? Attends Islam Services: Not on file ??? Active Member [...] following was dictated with voice-recognition software, and cloth weaver errors may be present: ATTENDING PHYSICIAN ATTESTATION: [...] * Roe Nguyen III, M.D. Cardiac Electrophysiology [facility] Arrhythm[facility] * Rosendo Alberts [...] of his back. 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 ?? MEDICAL HISTORY ?? Medical History [...] and Family: Not on file ??? Attends Islam Services: Not on file ??? Active Member [...] And pt home via ride service through insurance [employer]. Taken to ride via by [facility]. * Plan of Care - Bhakti Espan[place] [...] to chest since procedure. Has not worsened. PROFESSOR OF LITERATURE called on pt this morning at approx 0715 for SVT 170-180's. Other vs remained stable during PROFESSOR OF LITERATURE. Pt felt fluttering in chest and diaphoretic. [...] Rapid Response Team Event Note Reason for PROFESSOR OF LITERATURE: tachycardia Time Called: 720 Time Arrived: 722 SUBJECTIVE BRIEF HX: Patient is a 75 y.o. male admitted on 07/11/2021 with CAD and dyspnea and is s/p PCI with stents placed x 4. PROFESSOR OF LITERATURE was called 2/2 tachycardia with a HR [...] patient separate of any other billable procedures. KAVYA Pascual * Plan of Care - Daniela Solitario RN - 07/12/2021 3:45 AM CDT Goals: Clinical Goals for the Shift: R groin and R radial site care, comfort, no chest pain or nausea Summary: Pt on RA. A&O 4. Admitted 07/11 to [facility] from label paster. 2 stents LAD and 2 stents RCA [...] from the original note were not included. [facility] Cardiology [id number], [address] IVUS and PASSENGER CAR CLEANING SUPERVISOR PCI Procedure Report 75 year old male with CAD and dyspnea referred for PASSENGER CAR CLEANING SUPERVISOR PCI. Access:7F Right Femoral Artery and 7F Right Radial Artery Catheter:CLS3.5 Guide, 7F AL1 Guide Injection:Left Main Trunk and Right Coronary Artery Closure:TR band and Perclose Anticoagulation:[id number] Heparin, Clopidogrel and Aspirin Air Kerma:2385 mGy Fluoro time:39 min Contrast:250 ml Optiray Sedation:2mg Versed, 100 mcg fentanyl Procedural details: After risks, benefits, and alternatives to the procedure were explained to the patient, they agreedto proceed. After signing informed consent the patient was brought to the cardiac catheterization laboratory. There were prepped and draped in sterile fashion. A 7 [place] sheath was inserted in the Right Femoral Artery and Right Radial Artery using the modified Seldinger technique with ultrasound guidance. We then performed dual selective coronary angiography using various catheters. We then performed IVUS and PCI of the LAD, IVUS and PCI of the Right PDA PASSENGER CAR CLEANING SUPERVISOR, and PCI of the Right PVB using [...] XT to the distal PDA through the PASSENGER CAR CLEANING SUPERVISOR via a MC. IVUS showed diffuse atherosclerosis. [...] IVUS guided PCI of the Right PDA PASSENGER CAR CLEANING SUPERVISOR, IVUS guided PCI of the LAD, and PCI of the Right PVB using 4 total stents. Continue aspirin 81 mg indefinitely. 300mg Clopidogrel given in the label paster. Continue 75mg daily for at least 1 [...] Laterality Modality Electrocardiogra phy 08/08/2021 6:00 AM PERFORMANCE IMPROVEMENT CONSULTANT Narrative 08/10/2021 5:28 PM PERFORMANCE IMPROVEMENT CONSULTANT [facility] [place] [address] CARDIAC EVENT MONITOR REPORT Patient Name: OLAF CROFT JOH : 1945 (75y 10m) Study Date: 08/08/2021 6:00:00 AM Gender: M Tech: Location: [address] Ref.Provider: DOUGLAS HOPSON Height(Cm): BSA: Weight(Kg): [...] Signed By: Efren Saravia MD 2021-08-10 17:28:53 PERFORMANCE IMPROVEMENT CONSULTANT CC: CC: Procedure Note Efren Saravia MD - 08/10/2021 [facility] [place] [address] CARDIAC EVENT MONITOR REPORT Patient Name: OLAF CROFT JOHPatient ID: [id number] : 1945 (75y 10m)Study Date: 08/08/2021 6:00:00 AM Gender: MAccession #: [id number] Tech: Location: [id number] Ref.Provider: DOUGLAS HOPSONHeight(Cm): BSA: Weight(Kg): Order Provider: [...] Signed By: Efren Saravia MD 2021-08-10 17:28:53 PERFORMANCE IMPROVEMENT CONSULTANT CC: CC: Douglas Jennings NP CV CARDIAC SERVICES PA OCEDURES Final Result * Magnesium (07/13/2021 4:39 AM CDT) Magnesium 2.1 1.4 - 2.5 mg/dL [facility] Blood 07/13/2021 4:39 AM CDT 07/13/2021 5:13 AM CDT us Rosendo Alberts MD LAB BLOOD ORDERABLES Final Resul t [facility] [address] Department [place] [address] * eGFR (07/13/2021 4:39 AM CDT) eGFR 70 mL/min/1.7 3 m2 [facility] Comment: Interpretive Data Reference Interval Normal ?>/= [...] CDT 07/13/2021 5:13 AM CDT us Rosendo Ricardo KING LAB BLOOD ORDERABLES Final Resul t [facility] [address] Department [place] [address] * Basic metabolic panel (07/13/2021 4:39 AM CDT) Sodium 143 135 - 145 mmol/L [facility] Potassium, pl 3.8 3.3 - 4.9 mmol/L [facility] Chloride 105 97 - 110 mmol/L [facility] CO2 28 22 - 32 mmol/L [facility] Anion gap 10 2 - 15 mmol/L [facility] BUN 11 8 - 25 mg/dL [facility] Creatinine 1.05 0.80 - 1.30 mg/dL [facility] Glucose 103 70 - 199 mg/dL [facility] Comment: Interpretive Data Fasting glucose >/= 126 [...] Calcium 9.0 8.5 - 10.3 mg/dL [facility] Blood 07/13/2021 4:39 AM CDT 07/13/2021 5:13 AM CDT us Rosendo Alberts MD LAB BLOOD ORDERABLES Final Resul t [facility] [address] [place] [address] * TRANSTHORACIC ECHO (TTE) LIMITED/FOLLOW UP W LTD DOPPLER/CF WO CONTRAST (07/12/2021 11:28 AM CDT) Anatomical Region Laterality Modality Ultrasound 07/12/2021 7:18 AM CDT Narrative 07/13/2021 12:08 AM CDT [facility] [address] [place] [address] LIMITED ECHOCARDIOGRAM Patient Name: OLAF CROFT JOHN : 1945 Study Date: 07/12/2021 7:18:11 AM Gender: M Tech: Location: [id number] Ref.Provider: ROSENDO ALBERTS Height(Cm): 183 BSA: Weight(Kg): [...] Procedure Note Rosendo Alberts MD - 07/13/2021 [facility] [place] [address] [place] [address] LIMITED ECHOCARDIOGRAM Patient Name: OLAF CROFT JOHNPatient ID: [id number] : [id number] Date: 07/12/2021 7:18:11 AM Gender: MAccession #: [id number] Tech: KPLocation: [id number] Ref.Provider: ROSENDO ALBERTSHeight(Cm): 183 BSA: Weight(Kg): 105.23 [...] test (07/12/2021 7:57 AM CDT) Acceptable Yes [facility] Blood 07/12/2021 7:57 AM CDT 07/12/2021 7:58 AM CDT [facility] [facility] - 07/12/2021 7:58 AM CDT Name of Test->Phosphorus us Asha HOFF LAB BLOOD ORDERABLES Final Result [facility] [address] Department [place] [address] * Magnesium - Add on lab test (07/12/2021 7:57 AM CDT) Pathologist [facility] Acceptable Yes [facility] Blood 07/12/2021 7:57 AM CDT 07/12/2021 7:58 AM CDT Narrative [facility] - 07/12/2021 7:58 AM CDT Name of Test->Magnesium us Asha HOFF LAB BLOOD ORDERABLES Final Result [facility] [address] [place] [address] * (ABNORMAL) Differential, auto (07/12/2021 7:46 AM CDT) [facility] Neutrophil abs 9.6(H) 1.7 - 6.5 K/cumm [facility] Imm gran abs 0.1 0.0 - 0.1 K/cumm [facility] Lymphocyte abs 2.0 0.8 - 3.3 K/cumm [facility] Monocyte abs 1.0(H) 0.2 - 0.8 K/cumm [facility] Eosinophil abs 0.0 0.0 - 0.5 K/cumm [facility] Basophil abs 0.0 0.0 - 0.1 K/cumm [facility] Neutrophil pct 75.2 % [facility] Comment: Interpretive Data Percent cell count reference ranges are not reported, since discordance with absolute values may lead to misinterpretation of CBC data. Current Interpretive Data was last revised on 2017. Imm gran pct 0.6 % [facility] Comment: Interpretive Data Percent cell count reference ranges are not reported, since discordance with absolute values may lead to misinterpretation of CBC data. Current Interpretive Data was last revised on 2017. Lymphocyte pct 16.0 % [facility] Comment: Interpretive Data Percent cell count reference ranges are not reported, since discordance with absolute values may lead to misinterpretation of CBC data. Current Interpretive Data was last revised on 2017. Monocyte pct 7.9 % [facility] Comment: Interpretive Data Percent cell count reference ranges are not reported, since discordance with absolute values may lead to misinterpretation of CBC data. Current Interpretive Data was last revised on 2017. Eosinophil pct 0.1 % [facility] Comment: Interpretive Data Percent cell count reference ranges are not reported, since discordance with absolute values may lead to misinterpretation of CBC data. Current Interpretive Data was last revised on 2017. Basophil pct 0.2 % [facility] Comment: Interpretive Data Percent cell count reference ranges are not reported, since discordance with absolute values may lead to misinterpretation of CBC data. Current Interpretive Data was last revised on 2017. Blood 07/12/2021 7:46 AM CDT 07/12/2021 8:11 AM CDT us Asha HOFF LAB BLOOD ORDERABLES Final Result [facility] [address] [place] [address] * (ABNORMAL) CBC with auto differential (07/12/2021 7:46 AM CDT) WBC 12.7(H) 3.8 - 9.9 K/cumm [facility] Hgb 12.5(L) 13.0 - 17.5 g/dL [facility] Hct 36.6(L) 38.9 - 50.3 % [facility] Plt 201 150 - 400 K/cumm [facility] MPV 10.9 9.1 - 12.3 fL [facility] RBC 3.98(L) 4.30 - 5.80 M/cumm [facility] MCV 92.0 81.3 - 96.4 fL [facility] MCH 31.4 27.1 - 33.3 pg [facility] MCHC 34.2 32.3 - 35.7 g/dL [facility] RDW CV 12.7 11.1 - 14.9 % [facility] RDW SD 42.7 35.7 - 48.1 fL [facility] NRBC abs 0.00 0.00 - 0.01 K/cumm [facility] Blood 07/12/2021 7:46 AM CDT 07/12/2021 8:11 AM CDT Asha HOFF LAB BLOOD ORDERABLES Final Result Performing Organization Address [facility] Co de Phone Number [facility] [address] Department [place], [place] [id number] * Sepsis Lactate w/ Reflex (07/12/2021 7:46 AM CDT) Pathologist [facility] Sepsis Lactate 1.5 0.7 - 2.0 mmol/L [facility] Blood 07/12/2021 7:46 AM CDT 07/12/2021 7:58 AM CDT Asha HOFF LAB BLOOD ORDERABLES Final Result Performing Organization Address [facility] Co de Phone Number [facility] [address] Department of [place], [place] [id number] * POCT glucose (07/12/2021 7:29 AM CDT) Pathologist [facility] Glucose, POC 125 70 - 140 mg/dL [facility] Comment: For Glucose values <35 mg/dl when Hematocrit is >60 mg/dl,the test may not accurately detect significant hypoglycemia,and testing in the Laboratory should be considered if clinically indicated. Blood 07/12/2021 7:29 AM CDT 07/12/2021 7:29 AM CDT us Rosendo Alberts MD LAB POCT ORDERABLES - DEVICE Fin al Result Performing Organization Address [facility] Co de Phone Number [facility] [address] Department [place], [place] [id number] * ECG 12 lead (07/12/2021 7:21 AM CDT) 07/12/2021 7:21 AM CDT Narrative [facility] - 07/12/2021 2:11 PM CDT Vent Rate: 179 bpm RR Interval: 334 msec PA Interval: 0 msec QRS Duration: 91 msec QT Interval: 249 msec QTC Interval: 344 msec P-R-T [place]: 0 - 2 - 0 degrees SUPRAVENTRICULAR TACHYCARDIA NONSPECIFIC ST \T\ T-WAVE ABNORMALITY CRITICAL TEST RESULT Electronically Signed By: Cynthia Jones MD, [facility] us Rosendo Alberts MD ECG ORDERABLES Final Result Performing Organization Address City/[facility]/ZIP Co de Phone Number [facility] * Magnesium (07/12/2021 6:35 AM CDT) [facility] Magnesium 1.8 1.4 - 2.5 mg/dL [facility] Blood 07/12/2021 6:35 AM CDT 07/12/2021 6:54 AM CDT us Asha HOFF LAB BLOOD ORDERABLES Final Result Performing Organization Address [facility]/ZIP Co de Phone Number [facility] [address] Department of [place], [place] [id number] * Phosphorus (07/12/2021 6:35 AM CDT) [facility] Phosphorus, pl 3.3 2.3 - 4.5 mg/dL [facility] Blood 07/12/2021 6:35 AM CDT 07/12/2021 6:54 AM CDT us Asha HOFF LAB BLOOD ORDERABLES Final Result Performing Organization Address [facility]/ZIP Co de Phone Number [facility] [address] [place] [address] * eGFR (07/12/2021 6:35 AM CDT) [facility] eGFR 68 mL/min/1.7 3 m2 [facility] Comment: Interpretive Data Reference Interval Normal ?>/= [...] MD LAB BLOOD ORDERABLES Final Resul t [facility] [address] [place] [address] * Basic metabolic panel (07/12/2021 6:35 AM CDT) Sodium 138 135 - 145 mmol/L [facility] Potassium, pl 3.7 3.3 - 4.9 mmol/L [facility] Chloride 102 97 - 110 mmol/L [facility] CO2 26 22 - 32 mmol/L [facility] Anion gap 10 2 - 15 mmol/L [facility] BUN 12 8 - 25 mg/dL [facility] Creatinine 1.07 0.80 - 1.30 mg/dL [facility] Glucose 115 70 - 199 mg/dL [facility] Comment: Interpretive Data Fasting glucose >/= 126 [...] 2017. Calcium 9.1 8.5 - 10.3 mg/dL [facility] Blood 07/12/2021 6:35 AM CDT 07/12/2021 6:54 AM CDT us Rosendo Alberts MD LAB BLOOD ORDERABLES Final Resul t Performing Organization Address City/[facility]/ZIP Co de Phone Number [facility] [address] [place] [address] * ECG 12 lead (07/11/2021 5:41 PM CDT) 07/11/2021 5:41 PM CDT Narrative [facility] - 07/12/2021 1:39 PM CDT Vent Rate: 55 bpm RR Interval: 1072 msec PA Interval: 144 msec QRS Duration: 94 msec QT Interval: 406 msec QTC Interval: 396 msec P-R-T [place]: -3 - 19 - 6 degrees SINUS BRADYCARDIA WITH MARKED SINUS ARRHYTHMIA ST ELEVATION V2 through V6, PROBABLY EARLY REPOLARIZATION; clinical correlation advised BORDERLINE ECG Electronically Signed By: Cynthia Jones MD, [facility] us Rosendo Alberts MD ECG ORDERABLES Final Result Performing Organization Address [facility] Co de Phone Number [facility] BoxC [facility] * CESAR MAJOR CORONARY (07/11/2021 5:12 PM CDT) Anatomical Region Laterality Modality X-Ray Angiograph y Narrative 07/11/2021 5:29 PM CDT [facility] ?? [address], [id number] [place], [place], [address] ?? IVUS and PASSENGER CAR CLEANING SUPERVISOR PCI Procedure Report 75 year old male with CAD and dyspnea referred for PASSENGER CAR CLEANING SUPERVISOR PCI. Access:7F Right Femoral Artery and 7F Right Radial Artery Catheter:CLS3.5 Guide, 7F AL1 Guide Injection:Left Main Trunk and Right Coronary Artery Closure:TR band and Perclose Anticoagulation:[id number] Heparin, Clopidogrel and Aspirin Air Kerma:2385 mGy Fluoro time:39 min Contrast:250 ml Optiray Sedation:2mg Versed, 100 mcg fentanyl Procedural details: After risks, benefits, and alternatives to the procedure were explained to the patient, they agreed to proceed. ??After signing informed consent the patient was brought to the cardiac catheterization laboratory. ??There were prepped and draped in sterile fashion. A 7 [place] sheath was inserted in the Right Femoral Artery and Right Radial Artery using the modified Seldinger technique with ultrasound guidance. ??We then performed dual selective coronary angiography using various catheters. ??We then performed IVUS and PCI of the LAD, IVUS and PCI of the Right PDA PASSENGER CAR CLEANING SUPERVISOR, and PCI of the Right PVB using [...] XT to the distal PDA through the PASSENGER CAR CLEANING SUPERVISOR via a MC. ??IVUS showed diffuse atherosclerosis. [...] IVUS guided PCI of the Right PDA PASSENGER CAR CLEANING SUPERVISOR, IVUS guided PCI of the LAD, and PCI of the Right PVB using 4 total stents. ??Continue aspirin 81 mg indefinitely. ??300mg Clopidogrel given in the label paster. ??Continue 75mg daily for at least 1 year without interruption. ??Continue to optimize medical therapy and reduce atherosclerotic risk factors. Further management per the medicine and cardiology teams. Rosendo Alberts MD 07/11/2021 5:14 PM us Rosendo Alberts MD CV CARDIAC CATH PROCEDURES Final Result * (ABNORMAL) POC Activated Clotting Time, High Range (07/11/2021 4:33 PM CDT) ACT 313(H) 87 - 138 sec [facility] Blood 07/11/2021 4:33 PM CDT 07/11/2021 4:33 PM CDT us Rosendo Alberts MD LAB BLOOD ORDERABLES [facility] [address] Department [place] [address] * (ABNORMAL) POC Activated Clotting Time, High Range (07/11/2021 4:07 PM CDT) ACT 215(H) 87 - 138 sec [facility] Blood 07/11/2021 4:07 PM CDT 07/11/2021 4:07 PM CDT us Rosendo Alberts MD LAB BLOOD ORDERABLES Final Resul t [facility] [address] Department [place] [address] * Differential, auto (07/11/2021 9:21 AM CDT) Neutrophil abs 4.7 1.7 - 6.5 K/cumm [facility] Imm gran abs 0.0 0.0 - 0.1 K/cumm [facility] Lymphocyte abs 1.4 0.8 - 3.3 K/cumm [facility] Monocyte abs 0.6 0.2 - 0.8 K/cumm [facility] Eosinophil abs 0.1 0.0 - 0.5 K/cumm [facility] Basophil abs 0.0 0.0 - 0.1 K/cumm [facility] Neutrophil pct 69.7 % [facility] Comment: Interpretive Data Percent cell count reference ranges are not reported, since discordance with absolute values may lead to misinterpretation of CBC data. Current Interpretive Data was last revised on 2017. Imm gran pct 0.4 % [facility] Comment: Interpretive Data Percent cell count reference ranges are not reported, since discordance with absolute values may lead to misinterpretation of CBC data. Current Interpretive Data was last revised on 2017. Lymphocyte pct 20.2 % [facility] Comment: Interpretive Data Percent cell count reference ranges are not reported, since discordance with absolute values may lead to misinterpretation of CBC data. Current Interpretive Data was last revised on 2017. Monocyte pct 8.6 % [facility] Comment: Interpretive Data Percent cell count reference ranges are not reported, since discordance with absolute values may lead to misinterpretation of CBC data. Current Interpretive Data was last revised on 2017. Eosinophil pct 0.7 % [facility] Comment: Interpretive Data Percent cell count reference ranges are not reported, since discordance with absolute values may lead to misinterpretation of CBC data. Current Interpretive Data was last revised on 2017. Basophil pct 0.4 % [facility] Comment: Interpretive Data Percent cell count reference ranges are not reported, since discordance with absolute values may lead to misinterpretation of CBC data. Current Interpretive Data was last revised on 2017. Blood 07/11/2021 9:21 AM CDT 07/11/2021 9:21 AM CDT us Rosedno Alberts MD LAB BLOOD ORDERABLES Final Resul t Performing Organization Address City/[facility]/ZIP Co de Phone Number [facility] [address] [employer] [place], [place] [id number] * CBC with auto differential (07/11/2021 9:21 AM CDT) WBC 6.8 3.8 - 9.9 K/cumm [facility] Hgb 13.7 13.0 - 17.5 g/dL [facility] Hct 41.8 38.9 - 50.3 % [facility] Plt 200 150 - 400 K/cumm [facility] MPV 11.0 9.1 - 12.3 fL [facility] RBC 4.46 4.30 - 5.80 M/cumm [facility] MCV 93.7 81.3 - 96.4 fL [facility] MCH 30.7 27.1 - 33.3 pg [facility] MCHC 32.8 32.3 - 35.7 g/dL [facility] RDW CV 12.5 11.1 - 14.9 % [facility] RDW SD 42.9 35.7 - 48.1 fL [facility] NRBC abs 0.00 0.00 - 0.01 K/cumm [facility] Blood 07/11/2021 9:21 AM CDT 07/11/2021 9:21 AM CDT us Rosendo Alberts MD LAB BLOOD ORDERABLES Final Resul t Performing Organization Address City/[facility]/ZIP Co de Phone Number [facility] [address] [place] [address] * eGFR (07/11/2021 9:08 AM CDT) Pathologist [facility] eGFR 71 mL/min/1.7 3 m2 [facility] Comment: Interpretive Data Reference Interval Normal ?>/= [...] MD LAB BLOOD ORDERABLES Final Resul t [facility] [address] [place] [address] * Basic metabolic panel (07/11/2021 9:08 AM CDT) [facility] Sodium 142 135 - 145 mmol/L [facility] Potassium, pl 4.0 3.3 - 4.9 mmol/L [facility] Chloride 107 97 - 110 mmol/L [facility] CO2 26 22 - 32 mmol/L [facility] Anion gap 9 2 - 15 mmol/L [facility] BUN 11 8 - 25 mg/dL [facility] Creatinine 1.03 0.80 - 1.30 mg/dL [facility] Glucose 96 70 - 199 mg/dL [facility] Comment: Interpretive Data Fasting glucose >/= 126 [...] 2017. Calcium 9.5 8.5 - 10.3 mg/dL [facility] Blood 07/11/2021 9:08 AM CDT 07/11/2021 9:20 AM CDT us Rosendo Alberts MD LAB BLOOD ORDERABLES Final Resul t [facility] [address] Department [place] [address] documented in this encounter Visit Diagnoses Diagnosis Dyspnea on effort- Primary Other dyspnea and respiratory abnormality SOB (shortness of breath) Shortness of breath Coronary artery disease (CAD) excluded Observation for suspected cardiovascular disease S/P drug eluting coronary stent placement SOB (shortness of breath) Shortness of breath documented in this encounter Admitting Diagnoses Diagnosis Dyspnea on effort Other dyspnea and respiratory abnormality Coronary artery disease (CAD) excluded Observation for suspected cardiovascular disease Chest pain Unspecified chest pain documented in this encounter Administered Medications Inactive Administered Medications - up to 3 most recent administrations Medication Order MAR Action Action Date Dose Rate Site apixaban (ELIQUIS) tablet 5 mg 5 mg, [...] oral, Daily, First dose on Sat07/11/21 at 2015, Do not crush, chew, cut, dissolve, open or otherwise manipulate tablet/capsule. Given 07/13/2021 9:08 AM CDT 81 mg Given 07/12/2021 8:39 AM CDT 81 mg Given 07/11/2021 9:24 PM CDT 81 mg clopidogreL (PLAVIX) tablet 75 mg 75 mg, oral, Daily, First dose on Sat07/11/21 at 2014 Given 07/13/2021 9:08 AM CDT 75 mg Given 07/12/2021 8:39 AM CDT 75 mg clopidogreL (PLAVIX) tablet As needed, Starting on Sat07/11/21 at 1716, Intra-Procedure (CV) Given 07/11/2021 5:16 PM CDT 300 mg fentaNYL (SUBLIMAZE) preservative free injection As needed, Starting on Sat07/11/21 at 1447, Intra-Procedure (CV) Given 07/11/2021 4:57 PM CDT 25 mcg Given 07/11/2021 3:13 PM CDT 25 mcg Given 07/11/2021 2:47 PM CDT 50 mcg gabapentin (NEURONTIN) capsule 200 mg 200 mg, oral, Daily, First dose on Sat07/11/21 at 2014, Do not crush, break, or open. Given 07/12/2021 8:22 PM CDT 200 mg Given 07/11/2021 9:25 PM CDT 200 mg heparin 1,000 unit/mL injection As needed, Starting on Sat07/11/21 at 1513, Intra-Procedure (CV) Given 07/11/2021 4:12 PM CDT 3,000 Units Given 07/11/2021 3:22 PM CDT 7,000 Units Given 07/11/2021 3:13 PM CDT 5,000 Units heparin in 0.9% sodium chloride 1,000 units/500 mL (2 unit/mL) infusion (premix) As needed, Starting on Sat07/11/21 at 1421, Intra-Procedure (CV) Given 07/11/2021 2:21 PM CDT 1,500 mL ioversoL (OPTIRAY 350) injection As needed, Starting on Sat07/11/21 at 1718, Intra-Procedure (CV) Given 07/11/2021 5:18 PM CDT 250 mL metoprolol XL (TOPROL-XL) extended release tablet 50 mg 50 mg, oral, Daily, First dose on Sat07/11/21 at 2015, Tablets that are scored may be split, but do not crush, chew, dissolve, open or otherwise manipulate tablet/capsule. Given 07/13/2021 9:08 AM CDT 50 mg Given 07/12/2021 8:39 AM CDT 50 mg Given 07/11/2021 9:24 PM CDT 50 mg midazolam (VERSED) 1 mg/mL preservative free injection Administer over 2 Minutes, As needed, Starting on Sat07/11/21 at 1448, Intra-Procedure (CV) Given 07/11/2021 3:13 PM CDT 1 mg Given 07/11/2021 2:48 PM CDT 1 mg niCARdipine (CARDENE) 500 mcg/5 mL in sodium chloride 0.9% (premix) As needed, Starting on Sat07/11/21 at 1513, Intra-Procedure (CV) Given 07/11/2021 3:13 PM CDT 200 mcg nitroglycerin in dextrose 5% 50 mg/250 mL (200 mcg/mL) infusion (premix) Continuous PRN, Starting on Sat07/11/21 at 1716, Intra-Procedure (CV) Rate/Dose Change 07/12/2021 6:09 AM CDT 20 mcg/min 6 mL/hr Rate/Dose Verify 07/12/2021 2:38 AM CDT 30 mcg/min 9 mL/hr New Bag 07/11/2021 5:16 PM CDT 30 mcg/min 9 mL/hr nitroglycerin injection 100 mcg/mL in D5W 10 mL As needed, Starting on Sat07/11/21 at 1513, Intra-Procedure (CV) Given 07/11/2021 4:52 PM CDT 200 mcg Given 07/11/2021 4:31 PM CDT 200 mcg Given 07/11/2021 3:13 PM CDT 200 mcg ondansetron (ZOFRAN) injection 4 mg 4 mg, intravenous, Administer over 2 Minutes, Every 4 hours PRN, nausea, vomiting, Starting on Sat07/11/21 at 1957 rosuvastatin (CRESTOR) tablet 10 mg 10 mg, oral, Daily, First dose on Sat07/11/21 at 2015 Given 07/13/2021 9:08 AM CDT 10 mg Given 07/12/2021 8:40 AM CDT 10 mg Given 07/11/2021 9:25 PM CDT 10 mg sodium chloride 0.9% infusion Continuous PRN, Starting on Sat07/11/21 at 1715, Intra-Procedure (CV) New Bag 07/11/2021 5:15 PM CDT 100 mL/hr 100 mL/hr documented [...] 1 dose 0735 (Given - Provider: Mouna Courtney RN) adenosine (ADENOCARD) 3 mg/mL injection 6 mg [...] oral, Daily, First dose on Sat07/11/21 at 2015, Do not crush, chew, cut, dissolve, open [...] 0908 (Given - Provider: Roxanne Iniguez RN) gabapentin (NEURONTIN) capsule 200 mg 200 mg, oral, Daily, First dose on Sat07/11/21 at 2014, Do not crush, break, or open. 2124 (Given - Provider: Daniela Solitario RN) 2021 (Given - Provider: Bhakti Espana RN) magnesium sulfate 2 g/50 mL in water (premix) 2 g (COMPLETED) 2 g, intravenous, Administer over 60 Minutes, Once, On Sat07/12/21 at 0900, For 1 dose 09 (New Bag - Provider: Roxanne Iniguez RN) metoprolol XL (TOPROL-XL) extended release tablet 50 [...] at 2014 2124 (Given - Provider: Daniela Solitario RN) 0840 (Given - Provider: Roxanne Iniguez, NAZIA) [...] 0930 0911 (New Bag - Provider: Cathy Orourke, NAZIA) sodium chloride 0.9% infusion () 100 mL/hr, intravenous, Continuous, Starting on Sat07/11/21 at 1745, For 10 hours, Recovery (CV) 2032 (New Bag - Provider: Daniela Solitario, NAZIA) 0238 (Stopped - Provider: Daniela Solitario RN) PRN Medication Order 07/11/2021 07/12/2021 07/13/2021 clopidogreL (PLAVIX) tablet (CANCELED) As needed, Starting on Sat07/11/21 at 1716, Intra-Procedure (CV) 1716 (Given - Provider: Francisco Rene, NAZIA) fentaNYL (SUBLIMAZE) preservative free injection (CANCELED) As needed, Starting on Sat07/11/21 at 1447, Intra-Procedure (CV) 1447 (Given - Provider: Francisco Rene, NAZIA)1513 (Given - Provider: Francisco Rene, NAZIA)1657 (Given - Provider: Francisco Rene, RN) heparin [...] 1716 (New Bag - Provider: Francisco Rene RN)2033 (Continue to Inpatient Floor - Provider: Daniela Solitario RN - Comment: pt still having 2/10 chest pain) 0238 (Rate/Dose Verify - Provider: Daniela Solitario RN)0609 (Rate/Dose Change - Provider: Daniela Solitario RN - Comment: pt rating chest paiin 1/10)0715 (Stopped - Provider: Mouna Courtney, RN) nitroglycerin injection 100 mcg/mL in D5W [...] Count Last Ordered Date First Ordered Date apixaban (ELIQUIS) tablet 5 mg 1 07/13/2021 adenosine (ADENOCARD) 3 mg/m L injection 6 mg 2 07/12/2021 magnesium sulfate 2 g/50 mL in water (premix) 2 g 1 07/12/2021 sodium chloride 0.9% bolus 500 mL 1 021 aspirin enteric coated tablet 81 mg 1 07/11 clopidogreL (PLAVIX) tablet 75 mg 1 021 gabapentin (NEURONTIN) capsule 200 mg 1 10/2020 metoprolol XL (TOPROL-XL) ex tended release tablet 50 mg 1 07/11/2021 ondansetron (ZOFRAN) injection 4 mg 1 07/11 rosuvastatin (CRESTOR) tablet 10 mg 1 07/11 sodium chloride 0.9% infusion 2 07/11/2021 Nursing Count Last Ordered Date First [...] 07/11/2021 documented in this encounter Care Teams Cocoa Milling Machine Operator Relationship Specialty Start Date End Date Nolberto Humphrey DO PCP - General Internal Medicine 05/03/21 11/19/22 documented as of this encounter
--- OUTSIDE RECORDS SUMMARY | 2024-08-26 05:53 | XMS_ITS | Encounter Summary ---
Author Organization [facility] Address [address] [place] [address] Care Team Providers Care Power Generating Plant Operator Name Role Phone Nolberto Humphrey DO Primary Care Provider [phone] Encounter Details Date Type Department Care Team (Late st Contact Info) Description 07/04/2021 Telephone [facility] Cardiology [address] [place] [id number] Efren Sawyer MD [address] [place], [place] [id number] Social History Tobacco Use Types Packs/Day Years Used Date Smoking Tobacco: Former Smokeless Tobacco: Never Alcohol Use Standard Drinks/Week Comments Yes 0 (1 standard drink = 0.6 oz pur e alcohol) Sex and Gender Information Value Date Recorded Sex Assigned at Not on file 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 Gender Identity Not on file Sexual Orientation Straight 07/05/2021 1: 06 PM CDT documented as of this encounter Miscellaneous Notes * Telephone Encounter - Jazmyne aFn RN - 07/04/2021 8:44 AM CDT amb documented in this encounter Plan of Treatment Not on file documented as of this encounter Visit Diagnoses Diagnosis 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
--- OUTSIDE RECORDS SUMMARY | 2024-08-26 05:53 | XMS_ITS | Encounter Summary ---
Author Organization [facility] Address [address] [place] [address] Phone Care Team Providers Care Senior Data Quality Analyst Name Role Phone Olaf Carvajal MD Primary Care Provider [phone] Reason for Visit * Reason Onset Date Comments Rita HOFF 03/07/2020 Encounter Details Date Type Department Care Team (Late st Contact Info) Description 03/07/2020 Documentation [facility] Neuro Sleep [address] 6th [address] [place] [address] Idalmis Au RN Gralise PA Social History Tobacco Use Types Packs/Day Years Used Date Smoking Tobacco: Former Smokeless Tobacco: Never Alcohol Use Standard Drinks/Week Comments Yes 0 (1 standard drink = 0.6 oz pur e alcohol) Sex and Gender Information Value Date Recorded Sex Assigned at Not on file 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 documented in this encounter Plan of Treatment Not on file documented as of this encounter Visit Diagnoses Not on filedocumented in this encounter Care Teams Senior Data Quality Analyst Relationship Specialty Start Date End Date Olaf Carvajal MD [address] [place] [address] PCP - General 11/03/12 05/02/21 documented as of this encounter
--- OUTSIDE RECORDS SUMMARY | 2024-08-26 05:53 | XMS_ITS | Encounter Summary ---
Author Organization [facility] Address [address] [place] [address] Phone Care Team Providers Care Shortage Worker Name Role Phone Olaf Carvajal MD Primary Care Provider [phone] Encounter Details Date Type Department Care Team (Late st Contact Info) Description 10/28/2018 Telephone [facility] Neuro Sleep [address] [place] [address] 6th [address] [place] [address] Cindy Churchill RMA Social History Tobacco Use Types Packs/Day Years Used Date Smoking Tobacco: Former Smokeless Tobacco: Never Alcohol Use Standard Drinks/Week Comments Yes 0 (1 standard drink = 0.6 oz pur e alcohol) Sex and Gender Information Value Date Recorded Sex Assigned at Not on file 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 He took one tab and after 7 days he went another 600, dixzziness, headachce , 600 one tabel and it was ok. need script GGER documented in this encounter Plan of Treatment Not on file documented as of this encounter Visit Diagnoses Not on filedocumented in this encounter Care Teams Shortage Worker Relationship Specialty Start Date End Date Olaf Carvajal MD [address] [place] [address] PCP - General 11/03/12 05/02/21 documented as of this encounter
--- OUTSIDE RECORDS SUMMARY | 2024-08-26 05:53 | XMS_ITS | Encounter Summary ---
Author Organization [facility] Address [address] [place] [address] Care Team Providers Care Flour Blender Name Role Phone Nolberto Humphrey DO Primary Care Provider [phone] Encounter Details Date Type Department Care Team (Late st Contact Info) Description 05/03/2021 Orders Only [facility] Cardiology [address] [place] [address] Provider, MD Corey [address] [place] [address] Social History Tobacco Use Types Packs/Day Years Used Date Smoking Tobacco: Former Smokeless Tobacco: Never Alcohol Use Standard Drinks/Week Comments Yes 0 (1 standard drink = 0.6 oz pur e alcohol) Sex and Gender Information Value Date Recorded Sex Assigned at Not on file 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 Gender Identity Not on file Sexual Orientation Straight 07/05/2021 1: 06 PM CDT documented as of this encounter Plan of Treatment Not on file documented as of this encounter Procedures Procedure Name Priority Date/Time Associated Diagnosis Comments CARDIOLOGY DOCUMENT SCAN Routine 05/03/2021 documented in this encounter Results * SCAN - CARDIOLOGY (05/03/2021) Anatomical Region Laterality Modality Other Historical Provider [facility] CARDIAC SERVICES ESTUARDO REYEZ Final Result documented in this encounter Visit Diagnoses Not on filedocumented in this encounter Care Teams Flour Blender Relationship Specialty Start Date End Date Nolberto Humphrey DO PCP - General Internal Medicine 05/03/21 11/19/22 documented as of this encounter
--- OUTSIDE RECORDS SUMMARY | 2024-08-26 05:53 | XMS_ITS | Encounter Summary ---
Author Organization [facility] Address [address] [place] [address] Care Team Providers Care Aircraft De Icer Installer Name Role Phone Nolberto Humphrey DO Primary Care Provider [phone] Encounter Details Date Type Department Care Team (Late st Contact Info) Description 07/04/2021 Telephone [facility] Medical [facility] Cardiology [address] [place] [address] Rosendo Silva MD [address] [place] [address] Social History Tobacco Use Types Packs/Day Years Used Date Smoking Tobacco: Former Smokeless Tobacco: Never Alcohol Use Standard Drinks/Week Comments Yes 0 (1 standard drink = 0.6 oz pur e alcohol) Sex and Gender Information Value Date Recorded Sex Assigned at Not on file 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 Pt verbalized understandingof instructions. Orders in. Marked on provider schedules and scheduled with cardiac catheterization technician. * Telephone Encounter - Macy Chan - 07/04/2021 1:[address] Silva, please schedule pt for PCI. Cath this morning at [facility] (pt). I'd like you to consier PCI. Calcified proximal and mid LADwhich also fills closed PDA. RPL lesion as well - Dr Sawyer Scheduling pod will contact to schedule * Telephone Encounter - Kaci Gupta RDCS - 07/04/2021 11:18 AM CDT Chart to Dr. Silva for clarification. Should patient of Dr. Sawyer's be scheduled for AMBULANCE OFFICER consultation or cath? documented in this encounter Plan of Treatment Not on file documented as of this encounter Visit Diagnoses Not on filedocumented in this encounter Care Teams Aircraft De Icer Installer Relationship Specialty Start Date End Date Nolberto Humphrey DO PCP - General Internal Medicine 05/03/21 11/19/22 documented as of this encounter
--- OUTSIDE RECORDS SUMMARY | 2024-08-26 05:53 | XMS_ITS | Encounter Summary ---
Author Organization [facility] Address [address] [place] [address] Care Team Providers Care Literature Professor Name Role Phone Nolberto Humphrey DO Primary Care Provider Encounter Details Date Type Department Care Team (Late st Contact Info) Description 07/03/2021 Telephone [facility] Cardiology [address] [place] [address] Efren Sawyer MD [address] [place] [address] Social History Tobacco Use Types Packs/Day Years Used Date Smoking Tobacco: Former Smokeless Tobacco: Never Alcohol Use Standard Drinks/Week Comments Yes 0 (1 standard drink = 0.6 oz pur e alcohol) Sex and Gender Information Value Date Recorded Sex Assigned at Not on file 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 Will call tomorrow am since after 5 now. Pt aware. * Telephone Encounter - Jeyson Escoto - 07/03/2021 4:01 PM CDT Pt requesting a call,states he was instructed to call our office if [facility] did not call him by 3:30pm today,please advise.Thank you Contact:[phone] * Telephone Encounter - Jazmyne Fan RN - 07/03/2021 3:01 PM CDT Spoke with pt. He has a small blister 2-3 inches above the C incision site. Denies pain. Pt stillhas a statseal in place. Pt advised to take statseal off, gently clean with soap and water, pat dryand leave RESEARCH SUPPORT SPECIALIST. Observe for signs of infection, redness, increase or change in pain. Pt agreeable. * Telephone Encounter - Alaina Melton - 07/03/2021 12:18 PM CDT Pt called states he had a procedure 06/30 and noticed there is a blister 2 inches from incision that appeared last night. States there are a few red lines that look like scratches by the blister. Requesting call from nurse. Contact: documented in this encounter Plan of Treatment Not on file documented as of this encounter Visit Diagnoses Not on filedocumented in this encounter Care Teams Literature Professor Relationship Specialty Start Date End Date Nolberto Humphrey DO PCP - General Internal Medicine 05/03/21 11/19/22 documented as of this encounter
--- OUTSIDE RECORDS SUMMARY | 2024-08-26 05:53 | XMS_ITS | Encounter Summary ---
Author Organization [facility] Healthcare Address [address] [place] [address] Care Team Providers Care Prorate Clerk Name Role Phone Olaf Carvajal MD Primary Care Provider [phone] [phone] Encounter Details Date Type Department Care Team (Late st Contact Info) Description 10/21/2020 Patient Self-Triage [facility] HealthCare/ Physicians [address] [place] [address] Aleks, Generic Provider [address] [employer], [place] [id number] Social History Tobacco Use Types Packs/Day Years Used Date Smoking Tobacco: Former Smokeless Tobacco: Never Alcohol Use Standard Drinks/Week Comments Yes 0 (1 standard drink = 0.6 oz pur e alcohol) Sex and Gender Information Value Date Recorded Sex Assigned at Not on file 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
--- OUTSIDE RECORDS SUMMARY | 2024-08-26 05:53 | XMS_ITS | Encounter Summary ---
Author Organization [facility] Address [address] [place] [address] Phone Care Team Providers Care Nurse Ob Name Role Phone Olaf Carvajal MD Primary Care Provider [phone] [phone] Reason for Visit * Reason Onset Date Comments Catelise denial 03/10/2020 Encounter Details Date Type Department Care Team (Late st Contact Info) Description 03/10/2020 Documentation [facility] Neuro Sleep 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 documented in this encounter Plan of Treatment Not on file documented as of this encounter Visit Diagnoses Not on filedocumented in this encounter Care Teams Nurse Ob Relationship Specialty Start Date End Date Olaf Carvajal MD [address] [place] [address] PCP - General 11/03/12 05/02/21 documented as of this encounter
--- OUTSIDE RECORDS SUMMARY | 2024-08-26 05:53 | XMS_ITS | Encounter Summary ---
Author Organization [facility] Address [address] [place] [address] Phone Care Team Providers Care Psychiatric Security Nurse Name Role Phone Olaf Carvajal MD Primary Care Provider [phone] Reason for Visit * Reason Onset Date Comments Appointment 12/29/2019 Encounter Details Date Type Department Care Team (Late st Contact Info) Description 12/29/2019 Telephone 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 Thanks, R * Telephone Encounter - Idalmis Au RN - 12/29/2019 11:[address] Castillo, Mr Croft called and wants to cancel his 01/04/20 appt (compliance appt with Wilmer) as he decided after the appt in Oct that he did not want a new CPAP due to the cost. He reports that he is doing fine with stopping Gralise, He has an appt to see you 07/25/20 at 3:30 PM. documented in this encounter Plan of Treatment Not on file documented as of this encounter Visit Diagnoses Not on filedocumented in this encounter Care Teams Psychiatric Security Nurse Relationship Specialty Start Date End Date Olaf Carvajal MD [address] [place] [address] PCP - General 11/03/12 05/02/21 documented as of this encounter
--- OUTSIDE RECORDS SUMMARY | 2024-08-26 05:53 | XMS_ITS | Encounter Summary ---
Author Organization [facility] Address [address] [place] [address] Care Team Providers Care Medicine Tech Name Role Phone Nolberto Humphrey DO Primary Care Provider [phone] Encounter Details Date Type Department Care Team (Late st Contact Info) Description 07/14/2021 Telephone [facility] Cardiology [address] [place] [address] Rosendo Silva MD [address] [place] [address] Social History Tobacco Use Types Packs/Day Years Used Date Smoking Tobacco: Former Smokeless Tobacco: Never Alcohol Use Standard Drinks/Week Comments Yes 0 (1 standard drink = 0.6 oz pur e alcohol) Sex and Gender Information Value Date Recorded Sex Assigned at Not on file 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 He had a new onset of a-fib,heart rate 140-150. Patient did feel a skipped heat beat withthis episode. documented in this encounter Plan of Treatment Not on file documented as of this encounter Visit Diagnoses Not on filedocumented in this encounter Care Teams Medicine Tech Relationship Specialty Start Date End Date Nolberto Humphrey DO PCP - General Internal Medicine 05/03/21 11/19/22 documented as of this encounter
--- OUTSIDE RECORDS SUMMARY | 2024-08-26 05:53 | XMS_ITS | Encounter Summary ---
Author Organization [facility] Address [address] [place] [address] Phone Care Team Providers Care Arts Administrator Name Role Phone Olaf Carvajal MD Primary Care Provider [phone] [phone] Encounter Details Date Type Department Care Team (Late st Contact Info) Description 03/03/2018 Orders Only [facility] Neuro Sleep [address] 6th [address] [place] [address] Светлана Castillo MD PhD [address] [place], [place] [id number] Social History Tobacco Use Types Packs/Day Years Used Date Smoking Tobacco: Former Smokeless Tobacco: Never Alcohol Use Standard Drinks/Week Comments Yes 0 (1 standard drink = 0.6 oz pur e alcohol) Sex and Gender Information Value Date Recorded Sex Assigned at Not on file 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 30 tablet 03/03/2018 04/02/2018 documented in this encounter Plan of Treatment Not on file documented as of this encounter Visit Diagnoses Not on filedocumented in this encounter Care Teams Arts Administrator Relationship Specialty Start Date End Date Oalf Carvajal MD [address] [place] [address] PCP - General 11/03/12 05/02/21 documented as of this encounter
--- OUTSIDE RECORDS SUMMARY | 2024-08-26 05:53 | XMS_ITS | Encounter Summary ---
Author Organization [facility] Address [address] [place] [address] Phone Care Team Providers Care Telesales Professional Name Role Phone Olaf Carvajal MD Primary Care Provider [phone] Reason for Visit * Reason Comments Sleep Apnea * Neurology (Routine) - Closed Specialty Diagnoses / Procedures Referred By Jonna chance Referred To Contact Neurology Diagnoses 7MO PAP F/U Procedures RETURN Olaf Carvajal MD Phone: tel: fax: Светлана Castillo MD PhD [address] [place] [address] Phone: tel: fax: Referral ID Status Reason Start Date Expiration Date Visits Re quested Visits Authorized [id number] Closed 09/25/2018 11/24/2018 3 3 Encounter Details Date Type Department Care Team (Latest Contact Info) Description 10/06/2018 3:30 PM APPLICATION DEVELOPMENT TEAM LEAD Office Visit [facility] Neuro Sleep [address] 6[address] [place] [address] Светлана Castillo MD PhD [address] [place] [address] RLS (restless legs syndrome) (Primary Dx); Obstructive sleep apnea syndrome; Osteoarthritis, unspecified osteoarthritis type, unspecified site Social History Tobacco Use Types Packs/Day Years Used Date Smoking Tobacco: Former Smokeless Tobacco: Never Alcohol Use Standard Drinks/Week Comments Yes 0 (1 standard drink = 0.6 oz pur e alcohol) Sex and Gender Information Value Date Recorded Sex Assigned at Not on file Legal Sex Male 2:20 PM APPLICATION DEVELOPMENT TEAM LEAD Gender Identity Not on file Sexual Orientation Straight 07/05/2021 1: 06 PM CDT documented as of this encounter Last Filed Vital Signs Vital Sign Reading Time Taken Comments Blood Pressure 151/86 10/06/2018 3:47 PM APPLICATION DEVELOPMENT TEAM LEAD Pulse 94 10/06/2018 3:47 PM APPLICATION DEVELOPMENT TEAM LEAD Temperature - - Respiratory Rate - - Oxygen Saturation 95% 10/06/2018 3:47 PM APPLICATION DEVELOPMENT TEAM LEAD Inhaled Oxygen Concentration - - Weight 111.6 kg (246 lb) 10/06/2018 3:47 PM APPLICATION DEVELOPMENT TEAM LEAD Height 182.9 cm (6' 0.01 ) 10/06/2018 3:47 PM CS T Body Mass Index 33.36 10/06/2018 3:47 PM APPLICATION DEVELOPMENT TEAM LEAD documented in this encounter Progress Notes * Светлана Castillo MD PhD - 10/06/2018 3:30 PM CST Patient Name: OLAF [place] Medical Record Number (MRN): [id number] Date of (): 1945 Encounter Date: 10/06/2018 Chief Complaint This is a 73-year-old man with depression and Afib who follows up for obstructive sleep apnea an RLS. HPI He initially underwent PSG on [...] be optimal. At his last visit in 02/2018, the plan was to continue CPAP 8 and to continue gabapentin 400mg 30 minutes before bedtime while testing Ferritin. Based on 02/26/2018 ferritin being 118 and unable to tolerate higher doses of regular gabapentin, he was switched to Horizant 300mg to titrate up to 600mg at dinner time in a week . Today He reports that he did try the Horizant, he thinks the 300 mg, for a month. He did feel that this helped his legs more than anything else he would ever tried, though he did notice blurry vision for about an hour after he got up with this medication. After 30 days he just decided to stop it. He has not taken anything for his restless legs since then. Now he reports the does have some urge to move his legs at all times during the day, worse in the evening approaches. He does not have to get up and pace. It does not impair his ability to go to sleep. He usually goes to sleep within a couple minutes of when he gets in bed. He usually sleeps through the entire night. When he wakes up in the morning he does have the sheets wrapped up around him inthe bed is messy. He does report that over the last several months he has noticed waking up with a lot more soreness. The soreness seems to be diffusely in many different joints. It hurts to move, but then he feels better within minutes after stretching out. He feels drained all the time now. Generally low energy. In regards to his obstructive sleep apnea and CPAP of 8 he reports no problems. He uses it faithfully every night. He denies any troubles with it. Uses a fullface mask. He is regularly replacing and cleaning his supplies. Compliance download today shows 30/30 days usage, 100% >4 hours, with average daily usage of 7 hr and 19 min. Median leak 11, which is good. Residual AHI 3.3. Bedtime 12:00 a.m.. It takes 2 min to fall asleep. Rise time 6:00 a.m.. Iroquois Sleepiness Scale is 13 of 24 (no falling asleep driving). At his last visit 02/2018 on gabapentin it was 12; 06/2017 (off clonazepam) it was 15/24. In 2015 when he was asymptomatic, it was a 5. Prior treatments: He developed side effects with clonazepam (dizziness,sedation), though it had been effective with his legs. He feels the gabapentin helps, but is unable to go greater than a dosage of 400 mg due to side effects that include sedation, dizziness and blurry vision. No Known Allergies No current outpatient prescriptions on file. No current facility-administered medications for this visit. Patient reports not taking clonazepam Patient Active Problem List Diagnosis ??? Anaclitic depression ??? Osteoarthritis ??? Obstructive sleep apnea syndrome ??? Atrial fibrillation (CMS/HCC) ??? Iron deficiency ??? RLS (restless legs syndrome) Past Medical History: Diagnosis Date ??? 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 Alcohol: 1-2/week Caffeine: 2 cups coffee Exercises 5 days a week (just started timmy-chi) Adult children. Rarely drives Review of Systems All other systems are negative except as per the HPI. Vital Signs Vitals: 10/06/18 1547 BP: 151/86 BP Location: Left arm Patient Position: Sitting Pulse: 94 SpO2: 95% Weight: 111.6 kg (246 lb) Height: 182.9 cm (6' 0.01 ) Physical Exam General: Well developed, well nourished, in no acute distress. HEENT: Normal conjunctivae/sclerae. There is no retrognathia or micrognathia. Cardiovasc: Regular rate and rhythm; there are no murmurs, gallops or rubs. Pulmonary: Lungs are clear to auscultation bilaterally. Extremities: No clubbing, no cyanosis. No edema. Integementry System: Facial skin no irritation or breakouts, skin warm and dry, no rash. Assessment Assessment Diagnosis Plan 1. RLS (restless legs syndrome) 2. Obstructive sleep apnea syndrome 3. Osteoarthritis, unspecified osteoarthritis type, unspecified site 73-year-old man with depression and h/o Afib who follows up for ZENA currently treated with CPAP 8. He is doing well with this treatment. He has had symptomatic improvement in snoring, fatigue, and difficulty sleeping, and expressed commitment to continuing treatment. In the past few years, he has developed worsening sleep quality, increased Iroquois and more feelings of leg kicking at night. He also reports symptoms during the daytime consistent with a diagnosis of restless legs. After years, he realized that he had developed side effects with clonazepam, so this was stopped with worsening of sleep quality. She immediate release gabapentin did help from sleep better at night, but had bothersome side effects. He felt that he did better on the rise in 300 mg, although it caused a little blurry vision. Today, besides describing what sounds like restless legs,he also describes joint pain in the morning more consistent with arthritis. He was encouraged to discuss that with his entertainment musician. After discussion, however, we will try some Gralise to see if he tolerates this better than her rising. Samples were given, he will call within the week to let me know which he would prefer a prescription for Horizant or Gralise. Plan 1. Sample pack of release was given. He will try 300 mg a day, 1st taking around dinner time but can move as needed. He will watch for side effects. He will call within a week or so to let us know ifhe would like a prescription of this versus retry Horizant. 2. Continue CPAP 8. Continue replacing and cleaning supplies regularly. 3. He is gradually trying to restart regular exercise with Timmy Chi. Previously regular exercise is significantly helped his restless legs, and were hopeful that this will be beneficial. 4. Follow-up in 6-7 months. Return in about 6 months (around 04/05/2019). Thank you for allowing me to participate in the care of your patient. If you have any questions, feel free to contact me. Sincerely, Светлана Castillo M.D., Ph.D. Straddle Truck Operator of Neurology Diplomate, [place] [employer] of Psychiatry and Neurology with added Qualifications in Sleep Medicine ICATION DEVELOPMENT TEAM LEAD documented in this encounter Plan of Treatment Not on file documented as of this encounter Visit Diagnoses Diagnosis RLS (restless legs syndrome)- Primary Restless legs syndrome (RLS) Obstructive sleep apnea syndrome Obstructive sleep apnea (adult) (pediatric) Osteoarthritis, unspecified osteoarthritis type, unspecified site documented in this encounter Discontinued Medications Medication Sig Discontinue Reason Start Date End Da te gabapentin (NEURONTIN) 100 mg capsuleIndications:Restl ess Legs Syndrome Take four capsule by mouth at bedtime 02/14/2018 10/06/2018 documented as of this encounter Care Teams Telesales Professional Relationship Specialty Start Date End Date Olaf Carvajal MD [address] [place] [id number] PCP - General 11/03/12 05/02/21 documented as of this encounter
--- OUTSIDE RECORDS SUMMARY | 2024-08-26 05:53 | XMS_ITS | Encounter Summary ---
Author Organization [facility] Address [address] [place] [address] Phone Care Team Providers Care Card Runner Name Role Phone Olaf Carvajal MD Primary Care Provider [phone] Reason for Visit * Reason Onset Date Comments Test Results 03/03/2018 Encounter Details Date Type Department Care Team (Late st Contact Info) Description 03/03/2018 Documentation [facility] Neuro Sleep [address] 6th [address] [place] [address] Светлана Castillo MD PhD [address] [place] [address] Test Results Social History Tobacco Use Types Packs/Day Years Used Date Smoking Tobacco: Former Smokeless Tobacco: Never Alcohol Use Standard Drinks/Week Comments Yes 0 (1 standard drink = 0.6 oz pur e alcohol) Sex and Gender Information Value Date Recorded Sex Assigned at Not on file 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 MD Светлана Croft MD PhD ?? We discussed switching him to Horizant if his ferritin was normal. Are you okay with starting Horizant 300 mg in the morning? ?? Can increase up to 600 mg after 1 week? (Based on 02/26 ferritin of 118) OK to try Horzant, would have him take the dose around dinner time. Thanks, R * Cindy Oakley MA - 03/03/2018 8:05 AM CDT Spoke to the patient, he is in agreement with this plan. rx for Horizant 300 mg e scribed to [facility] documented in this encounter Plan of Treatment Not on file documented as of this encounter Visit Diagnoses Not on filedocumented in this encounter Care Teams Card Runner Relationship Specialty Start Date End Date Olaf Carvajal MD [address] [place] [id number] PCP - General 11/03/12 05/02/21 documented as of this encounter
--- OUTSIDE RECORDS SUMMARY | 2024-08-26 05:53 | XMS_ITS | Encounter Summary ---
Author Organization [facility] Address [address] [place] [address] Phone Care Team Providers Care Ruby On Rails Web Developer Name Role Phone Olaf Carvajal MD Primary Care Provider [phone] Encounter Details Date Type Department Care Team (Latest Contact Info) Description 02/24/2018 Orders Only [facility] Scanning, Provider Social History Tobacco Use Types Packs/Day Years Used Date Smoking Tobacco: Former Smokeless Tobacco: Never Alcohol Use Standard Drinks/Week Comments Yes 0 (1 standard drink = 0.6 oz pur e alcohol) Sex and Gender Information Value Date Recorded Sex Assigned at Not on file 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 Gender Identity Not on file Sexual Orientation Straight 07/05/2021 1: 06 PM CDT documented as of this encounter Plan of Treatment Not on file documented as of this encounter Procedures Procedure Name Priority Date/Time Associated Diagnosis Comments SLEEP LAB/STUDY - RESULT 02/24/2018 documented in this encounter Results * SLEEP LAB/STUDY - RESULT (02/24/2018) us Provider Scanning Final Result documented in this encounter Visit Diagnoses Not on filedocumented in this encounter Care Teams Ruby On Rails Web Developer Relationship Specialty Start Date End Date Olaf Carvajal MD [address] [place] [address] PCP - General 11/03/12 05/02/21 documented as of this encounter
--- OUTSIDE RECORDS SUMMARY | 2024-08-26 05:53 | XMS_ITS | Encounter Summary ---
Author Organization [facility] Address [address] [place] [address] Phone Care Team Providers Care Sales Support Specialist Name Role Phone Olaf Carvajal MD Primary Care Provider [phone] Reason for Visit * Reason Onset Date Comments Rita Approval 11/04/2018 Encounter Details Date Type Department Care Team (Late st Contact Info) Description 11/04/2018 Documentation [facility] Neuro Sleep [address] 6th [address] [place] [address] Idalmis Au RN Gramarshall Approval Social History Tobacco Use Types Packs/Day Years Used Date Smoking Tobacco: Former Smokeless Tobacco: Never Alcohol Use Standard Drinks/Week Comments Yes 0 (1 standard drink = 0.6 oz pur e alcohol) Sex and Gender Information Value Date Recorded Sex Assigned at Not on file 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 [place] COUNTY COUNSEL documented in this encounter Plan of Treatment Not on file documented as of this encounter Visit Diagnoses Not on filedocumented in this encounter Care Teams Sales Support Specialist Relationship Specialty Start Date End Date Olaf Carvajal MD [address] [place] [address] PCP - General 11/03/12 05/02/21 documented as of this encounter
--- OUTSIDE RECORDS SUMMARY | 2024-08-26 05:53 | XMS_ITS | Encounter Summary ---
Author Organization [facility] Address [address] [place] [address] Phone Care Team Providers Care Table Keeper Name Role Phone Olaf Carvajal MD Primary Care Provider [phone] Reason for Visit * Reason Onset Date Comments Horizant Pa approval 03/06/2018 Encounter Details Date Type Department Care Team (Late st Contact Info) Description 03/06/2018 Documentation [facility] Neuro Sleep [address] 6th [address] [place] [address] Idalmis Au RN Horizant Pa approval Social History Tobacco Use Types Packs/Day Years Used Date Smoking Tobacco: Former Smokeless Tobacco: Never Alcohol Use Standard Drinks/Week Comments Yes 0 (1 standard drink = 0.6 oz pur e alcohol) Sex and Gender Information Value Date Recorded Sex Assigned at Not on file 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 documented in this encounter Plan of Treatment Not on file documented as of this encounter Visit Diagnoses Not on filedocumented in this encounter Care Teams Table Keeper Relationship Specialty Start Date End Date Olaf Carvajal MD [address] [place] [address] PCP - General 11/03/12 05/02/21 documented as of this encounter
--- OUTSIDE RECORDS SUMMARY | 2024-08-26 05:53 | XMS_ITS | Encounter Summary ---
Author Organization [facility] Address [address] [place] [address] Phone Care Team Providers Care Industrial Retrofit Designer Name Role Phone Olaf Carvajal MD Primary Care Provider [phone] Reason for Visit * Reason Onset Date Comments Rita HOFF 11/03/2018 Encounter Details Date Type Department Care Team (Late st Contact Info) Description 11/03/2018 Documentation [facility] Neuro Sleep [address] [facility] 6th [address] [place] [address] Idalmis Au RN Gralise PA Social History Tobacco Use Types Packs/Day Years Used Date Smoking Tobacco: Former Smokeless Tobacco: Never Alcohol Use Standard Drinks/Week Comments Yes 0 (1 standard drink = 0.6 oz pur e alcohol) Sex and Gender Information Value Date Recorded Sex Assigned at Not on file 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 SWARE SELECTOR documented in this encounter Plan of Treatment Not on file documented as of this encounter Visit Diagnoses Not on filedocumented in this encounter Care Teams Industrial Retrofit Designer Relationship Specialty Start Date End Date Olaf Carvajal MD [address] [place] [address] PCP - General 11/03/12 05/02/21 documented as of this encounter
--- OUTSIDE RECORDS SUMMARY | 2024-08-26 05:53 | XMS_ITS | Encounter Summary ---
Author Organization [facility] Address [address] [place] [address] Phone Care Team Providers Care Vessel Welder Name Role Phone Olaf Carvajal MD Primary Care Provider [phone] Reason for Referral * Consultation (Routine) - Closed Specialty Diagnoses / Procedures Referred By Contac t Referred To Contact Neurology Diagnoses Obstructive sleep apnea syndrome Светлана Castillo MD PhD [address] [place] [address] Phone: tel: fax: [facility] (All Locations) Referral ID Status Reason Start Date Expiration Date V isits Requested Visits Authorized [id number] Closed Specialty Services Required 10/14/2019 02/05/2020 3 3 Question Answer Please select the performing region: [facility] (All Locations) [[id number]] # of visits: 1 W OUT CLERK Reason for Visit * Reason Comments Restless Legs Sleep Apnea * Consultation (Routine) - Closed Specialty Diagnoses / Procedures Referred By Contac t Referred To Contact Neurology Diagnoses Obstructive sleep apnea syndrome Светлана Castillo MD PhD [address] [place] [address] Phone: tel: fax: [facility] (All Locations) Referral ID Status Reason Start Date Expiration Date V isits Requested Visits Authorized [id number] Closed Specialty Services Required 10/14/2019 02/05/2020 3 3 Encounter Details Date Type Department Care Team (Late st Contact Info) Description 10/26/2019 3:30 PM THROW OUT CLERK Office Visit [facility] Neuro Sleep [address] [facility] 6th [address] [place] [address] Светлана Castillo MD PhD [address] [place] [address] Obstructive sleep apnea syndrome (Primary Dx); RLS (restless legs syndrome) Social History Tobacco Use Types Packs/Day Years Used Date Smoking Tobacco: Former Smokeless Tobacco: Never Alcohol Use Standard Drinks/Week Comments Yes 0 (1 standard drink = 0.6 oz pur e alcohol) Sex and Gender Information Value Date Recorded Sex Assigned at Not on file Legal Sex Male 2:20 PM THROW OUT CLERK Gender Identity Not on file Sexual Orientation Straight 07/05/2021 1: 06 PM CDT documented as of this encounter Last Filed Vital Signs Vital Sign Reading Time Taken Comments Blood Pressure 157/84 10/26/2019 3:26 PM THROW OUT CLERK Pulse 88 10/26/2019 3:26 PM THROW OUT CLERK Temperature - - Respiratory Rate - - Oxygen Saturation 97% 10/26/2019 3:26 PM THROW OUT CLERK Inhaled Oxygen Concentration - - Weight 108.6 kg (239 lb 5 oz) 10/26/2019 3:26 PM THROW OUT CLERK Height 182.9 cm (6') 10/26/2019 3:26 PM THROW OUT CLERK Body Mass Index 32.46 10/26/2019 3:26 PM THROW OUT CLERK documented in this encounter Patient Instructions * Patient Instructions* Светлана Castillo MD PhD - 10/26/2019 3:30 PM THROW OUT CLERK 1. After discussion, he will try stopping Gralise and see how he does. If RLS/fatigue symptoms get worse, then he will restart (call for refills), could then consider increasing to 900mg at some point if desired. 2. He will try going to bed an hour earlier, spending at least 7 hours trying to sleep. 3. Due to age of machine (9 years), will go ahead and order new machine with AutoPAP 8-10 cm H2O. Continue replacing and cleaning supplies regularly. 4. If he doesn't feel better with these changes, he may call to set up a sleep study to titrate PAPand look for PLMS. 5. He will restart regular exercise with biking. Previously regular exercise is significantly helped his restless legs, and hopefully this will be beneficial. 6. Follow-up in 2-3 months with JOURNEYMAN MOLDER for compliance and in 9 months with me. W OUT CLERK W OUT CLERK documented in this encounter Progress Notes * Светлана Castillo MD PhD - 10/26/2019 3:30 PM CST Patient Name: OLAF NEWELL Medical Record Number (MRN): [id number] Date of (): 1945 Encounter Date: 10/26/2019 Chief Complaint This is a 73-year-old man [...] be optimal. At his last visit in 09/2018, he was doing well with PAP, but had tiredness that was felt to likely be due to his RLS which was untreated at that point (he had stopped Horizant after a month and not restarted gabapentin). The plan was to continue CPAP 8 and to try Gralise 300mg samples. He was to call for either a script of Gralise or Horizant. Regular exercise was encouraged. Since then he called in 10/2018 to say that he did well on Gralise 600mg 1 hour prior to bedtime (1200mg caused headache and dizziness), and script was sent. Today He continues to take the Gralise 600mg in the evening, tolerating well, but now is not sure how much it is helping. Now he reports the does have some urge to move his legs at all times during the day, a little worsein the evening. He does not have to get up and pace or impact his ability to do any activites. It does not impair his ability to go to sleep. He usually goes to sleep within a couple minutes of turning the light off after reading for an hour or so. He usually sleeps through the entire night. When he wakes up in the morning he does have the sheets wrapped up around him and the bed is messy. He still feels drained all the time. Generally low energy. In regards to his obstructive sleep apnea and CPAP of 8 he reports no problems. He uses it faithfully every night. He denies any troubles with it, though his machine is 9 years old. Uses a fullface mask. He is regularly replacing and cleaning his supplies. Uses a fullface mask. Compliance download today (for 08/18/19-09/16/19 as card was not pushed all the way into the [employer] for the past month...) shows 30/30 days usage, 100% >4 hours, with average daily usage of 7 hr and 27 min. Median leak 0.2, which is good. Residual AHI 3.8. Bedtime (lights off) 12:00 a.m.. It takes 2 min to fall asleep. Rise time 6:00 a.m.. Generally sleeps through the night. Doesn't feel well rested. Accidental naps on the sofa for about an hour 3 evenings a week. (Puts the mask on when he gets in bed to read for an hour of more before trying to sleep.) [place] Sleepiness Scale is 12 of 24 (no falling asleep driving). At his last visit 09/2018 without meds , 02/2018 on gabapentin it was 12; 06/2017 (off clonazepam) it was 1524. In 2016 when he was asymptomatic, it was a [...] for an hour after taking the pill? 02/26/2018 ferritin 118 No Known Allergies Current Outpatient Medications Medication Sig Dispense Refill ??? gabapentin ER (GRALISE) 600 mg tablet extended release 24 hr TAKE ONE TABLET BY MOUTH EVERY EVENING 30 tablet 5 No current facility-administered medications for this visit. Patient reports not taking clonazepam Patient Active Problem List Diagnosis ??? Anaclitic depression ??? Osteoarthritis ??? Obstructive sleep apnea syndrome ??? Atrial fibrillation (CMS/HCC) ??? Iron deficiency ??? RLS (restless legs syndrome) Past Medical History: Diagnosis Date ??? 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 Alcohol: 1-2/week Caffeine: 3 cups coffee Exercises 3 days a week, stretching, no longer allowed to do timmy-chi due to knee Adult children. Rarely drives Review of Systems All other systems are negative except as per the HPI. Vital Signs Vitals: 10/26/19 1526 BP: 157/84 BP Location: Left arm Patient Position: Sitting Pulse: 88 SpO2: 97% Weight: 108.6 kg (239 lb 5 oz) Height: 182.9 cm (6') Physical Exam General: Well developed, well nourished, in no acute distress. HEENT: Normal conjunctivae/sclerae. There is no retrognathia or micrognathia. Cardiovasc: Regular rate and rhythm; there are no murmurs, gallops or rubs. Pulmonary: Lungs are clear to auscultation bilaterally. Extremities: No clubbing, no cyanosis. No edema. Integementry System: Facial skin no irritation or breakouts, skin warm and dry, no rash. MS: alert and oriented, follows commands appropriately Motor: no tremor noted Sensory: LT intact Gait: normal base Assessment Assessment Diagnosis Plan 1. Obstructive sleep apnea syndrome Ambulatory referral to Neurology Ambulatory referral to Neurology CPAP 2. RLS (restless legs syndrome) 74-year-old man with depression and h/o Afib who follows up for ZENA currently treated with CPAP 8. He is doing well with this treatment. He has had symptomatic improvement in snoring, fatigue, and difficulty sleeping, and expressed commitment to continuing treatment. In the past few years, he has developed worsening sleep quality, increased [place] and more feelings of leg kicking at night. He also reports symptoms during the daytime consistent with a diagnosis of restless legs. After years, he realized that he had developed side effects with clonazepam, so this was stopped with worsening of sleep quality. He has had some benefit from gabapentin and Horizant in the past but dose limited by side effects. He is tolerating Gralise well at 600mg, but can't tellif it is helping anymore. His increased daytime sleepiness/fatgiue could be related to suboptimally controlled ZENA (though d/l looks good, machine is old...), RLS/PLMS which disrupt sleep, and/or insufficent sleep time. This was all discussed in detail along with a number of measures which could be used to address each of these. Plan 1. After discussion, he will try stopping Gralise and see how he does. If RLS/fatigue symptoms get worse, then he will restart (call for refills), could then consider increasing to 900mg at some point if desired. 2. He will try going to bed an hour earlier, spending at least 7 hours trying to sleep. 3. Due to age of machine (9 years), will go ahead and order new machine with AutoPAP 8-10 cm H2O. Continue replacing and cleaning supplies regularly. 4. If he doesn't feel better with these changes, he may call to set up a sleep study to titrate PAPand look for PLMS. 5. He will restart regular exercise with biking. Previously regular exercise is significantly helped his restless legs, and hopefully this will be beneficial. 6. Follow-up in 2-3 months with JOURNEYMAN MOLDER for compliance and in 9 months with me. No follow-ups on file. I spent from 3:55 until 4:45 [id number] with the patient and more than half this time was spent in counseling and/or coordination of care as discussed above. Thank you for allowing me to participate in the care of your patient. If you have any questions, feel free to contact me. Sincerely, Светлана Castillo M.D., Ph.D. [employer] of Neurology Diplomate, [place] Board of Psychiatry and Neurology with added Qualifications in Sleep Medicine W OUT CLERK documented in this encounter Plan of Treatment Scheduled Referrals Name Type Priority Associated Diagnoses Order Schedule Ambulatory referral to Neurology Outpatient Referral Routine Obstructive sleep apnea syndrome Expected: 10/25/2019 (Approximate), Expires: 10/11/2020 documented as of this encounter Visit Diagnoses Diagnosis Obstructive sleep apnea syndrome- Primary Obstructive sleep apnea (adult) (pediatric) RLS (restless legs syndrome) Restless legs syndrome (RLS) documented in this encounter Orders General Supply Count Last Ordered Date First Or dered Date CPAP THERAPY 1 10/26/2019 documented in this encounter Care Teams Vessel Welder Relationship Specialty Start Date End Date Olaf Carvajal MD [address] [place] [address] PCP - General 11/03/12 05/02/21 documented as of this encounter
--- OUTSIDE RECORDS SUMMARY | 2024-08-26 05:53 | XMS_ITS | Encounter Summary ---
Author Organization [facility] Address [address] [place] [address] Care Team Providers Care Tar Heat Exchanger Cleaner Name Role Phone Nolberto Humphrey DO Primary Care Provider [phone] Encounter Details Date Type Department Care Team (Late st Contact Info) Description 07/24/2021 Telephone [facility] Cardiology [address] [place] [address] Efren Sawyer MD [address] [place], [place] [id number] Social History Tobacco Use Types Packs/Day Years Used Date Smoking Tobacco: Former Smokeless Tobacco: Never Alcohol Use Standard Drinks/Week Comments Yes 0 (1 standard drink = 0.6 oz pur e alcohol) Sex and Gender Information Value Date Recorded Sex Assigned at Not on file Legal Sex Male 2:20 PM DEFENCE INTELLIGENCE ANALYST Gender Identity Not on file Sexual Orientation Straight 07/05/2021 1: 06 PM CDT documented as of this encounter Miscellaneous Notes * Telephone Encounter - Sandy Ying RN - 07/24/2021 10:09 AM DEFENCE INTELLIGENCE ANALYST Pt called and said he has a hardened area in his right groin from his procedure [address] Silva' note: Perclose was placed at the wrist and deployed at the femoral artery with good hemostasis achieved. Pt said he has no pain but the hardening is concerning to him. Pt asked if he could come in a let us take a look at it. Scheduled pt for RN visit today. NCE INTELLIGENCE ANALYST * Telephone Encounter - Jeyson Escoto - 07/24/2021 8:34 AM CST Pt called requesting a f/u appt for angioplasty surgery done at [facility] with a different provider pt states the area is hardened and when asked if he had contacted the preforming physician pt said no,please advise.Thank you Contact:[phone] NCE INTELLIGENCE ANALYST documented in this encounter Plan of Treatment Not on file documented as of this encounter Visit Diagnoses Not on filedocumented in this encounter Care Teams Tar Heat Exchanger Cleaner Relationship Specialty Start Date End Date Nolberto Humphrey DO PCP - General Internal Medicine 05/03/21 11/19/22 documented as of this encounter
--- OUTSIDE RECORDS SUMMARY | 2024-08-26 05:53 | XMS_ITS | Encounter Summary ---
Author Organization [facility] Address [address] [place] [address] Phone Care Team Providers Care Health Care Recruiter Name Role Phone Olaf Carvajal MD Primary Care Provider [phone] Nolberto Humphrey DO Primary Care Provider [phone] Leatha Silvestre MD Primary Care Provider [phone] Ciaran Rizo MD Primary Care Provider [phone] Reason for Visit * Reason Onset Date Comments Follow-up 10/27/2019 Sent patient fol low up appointments with Wilmer Patton NP for compliance 2-3 mths for 01/04/2020 @ 2:30pm and [address] Светлана Castillo on 07/25/2020 @ 3:30 pm Encounter Details Date Type Department Care Team (Late st Contact Info) Description 10/27/2019 Documentation [facility] Neuro Sleep [address] [place] [address] 6th [address] [place] [address] Allegra iWld Follow-up (Sent patient follow up appointments with Wilmer Patton NP for compliance 2-3 mths for 01/04/2020 @ 2:30pm and [address] Светлана Castillo on 07/25/2020 @ 3:30 pm ) Social History Tobacco Use Types Packs/Day Years Used Date Smoking Tobacco: Former Smokeless Tobacco: Never Alcohol Use Standard Drinks/Week Comments Yes 0 (1 standard drink = 0.6 oz pur e alcohol) Sex and Gender Information Value Date Recorded Sex Assigned at Not on file Legal Sex Male 2:20 PM COMPUTER TEACHER Gender Identity Not on file Sexual Orientation Straight 07/05/2021 1: 06 PM CDT documented as of this encounter Plan of Treatment Not on file documented as of this encounter Visit Diagnoses Not on filedocumented in this encounter Care Teams Health Care Recruiter Relationship Specialty Start Date End Date Olaf Carvajal MD [address] [place] [address] PCP - General 11/03/12 05/02/21 Nolberto Humphrey DO [address] [place] [address] PCP - General Internal Medicine 05/03/21 11/19/22 Leatha Silvestre MD [address] [place] [address] PCP - General Internal Medicine 11/20/22 05/20/23 Ciaran Rizo MD [address] [place], [place] [id number] PCP - General Family Practice 05/21/23 documented as of this encounter
--- OUTSIDE RECORDS SUMMARY | 2024-08-26 05:54 | XMS_ITS | Encounter Summary ---
Author Organization [facility] Address [address] [place] [address] Phone Care Team Providers Care President Practicing Urologist Name Role Phone Olaf Carvajal MD Primary Care Provider [phone] Reason for Visit * Reason Comments Sleep Apnea Restless Legs * Neurology (Routine) - Closed Specialty Diagnoses / Procedures Referred By Jonna chance Referred To Contact Neurology Diagnoses ABSTRACTED Appt Comment: 6-8 MONTH FU Procedures RETURN Olaf Carvajal MD Phone: tel: fax: Светлана Castillo MD PhD [address] [place] [address] Phone: tel: fax: Referral ID Status Reason Start Date Expiration Date Visits Re quested Visits Authorized [id number] Closed 02/24/2018 09/05/2019 1 1 Encounter Details Date Type Department Care Team (Late st Contact Info) Description 02/24/2018 2:00 PM CDT Office Visit [facility] Neuro Sleep [address] 6th [address] [place] [address] Светлана Casitllo MD PhD [address] [place] [address] Obstructive sleep apnea syndrome (Primary Dx); Periodic limb movement disorder; Iron deficiency; RLS (restless legs syndrome) Social History Tobacco Use Types Packs/Day Years Used Date Smoking Tobacco: Former Smokeless Tobacco: Never Alcohol Use Standard Drinks/Week Comments Yes 0 (1 standard drink = 0.6 oz pur e alcohol) Sex and Gender Information Value Date Recorded Sex Assigned at Not on file 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 Gender Identity Not on file Sexual Orientation Straight 07/05/2021 1: 06 PM CDT documented as of this encounter Last Filed Vital Signs Vital Sign Reading Time Taken Comments Blood Pressure 146/80 02/24/2018 2:09 PM CDT Pulse 96 02/24/2018 2:09 PM CDT Temperature - - Respiratory Rate - - Oxygen Saturation 97% 02/24/2018 2:09 PM CDT Inhaled Oxygen Concentration - - Weight 107 kg (236 lb) 02/24/2018 2:09 PM CDT Height 182.9 cm (6') 02/24/2018 2:09 PM CDT Body Mass Index 32.01 02/24/2018 2:09 PM CDT documented in this encounter Patient Instructions * Patient Instructions* Rickey Adkins MD - 02/24/2018 2:00 PM CDT Keep taking 4 tabs of gabapentin 30 minutes before falling asleep Check iron panel and ferritin today as cause of poor sleep quality. If low, will start oral iron and recheck in 3 months. Keep replacing and cleaning CPAP supplies Follow up in 6-7 months. Call if needed. documented in this encounter Progress Notes * Rickey Adkins MD - 02/24/2018 2:00 PM CDT Patient Name: OLAF NEWELL Medical Record Number (MRN): [id number] Date of (): 1945 Encounter Date: 02/24/2018 Chief Complaint This is a 72-year-old man with depression and Afib who follows up for obstructive sleep apnea. HPI He initially underwent PSG on 11/28/2010 [...] be optimal. At his last visit in 06/2017, the plan was to continue CPAP 8 and to start gabapentin because he developed side effects to clonazepam (dizziness,sedation). Today he reports continued disrupted sleep and excessive daytime sleepiness. He reports kicking hisbed sheets off and waking up 3-4 times momentarily at night. He feels the gabapentin helps, but is unable to go greater than a dosage of 400 mg due to side effects that include sedation, dizziness and blurry vision. On further questioning he reports a feeling of discomfort in his legs throughout the day, that is worse in the evening. He does not necessarily endorse symptoms being worse with sitting or rest, but does say the symptoms are better with activity. He has never had his iron checked. No recent changesin his health or new medications. In regards to his obstructive sleep apnea and CPAP of 8 he reports no problems. He uses it faithfully every night. He denies any troubles with it. He is regularly replacing cleaning his supplies. Compliance download today shows 29/30 days usage with average daily usage of 6 hr and 48 min. Median leak 6.6, which is good. Residual AHI 2.4. Bedtime 12:00 a.m.. It takes 30 min to fall asleep. Rise time 7:00 a.m.. Lyon Sleepiness Scale is 12 of 24 (no falling asleep driving). At his last visit 06/2017 (off clonazepam) it was 15/24. In 2016 when he was asymptomatic, it was a 5. No Known Allergies Current Outpatient Prescriptions Medication Sig Dispense Refill ??? gabapentin (NEURONTIN) 100 mg capsule Take four capsule by mouth at bedtime 120 capsule 0 No current facility-administered medications for this visit. Patient reports not taking clonazepam Patient Active Problem List Diagnosis ??? Anaclitic depression ??? Osteoarthritis ??? Obstructive sleep apnea syndrome ??? Atrial fibrillation (CMS/HCC) ??? Iron deficiency ??? RLS (restless legs syndrome) Past Medical History: Diagnosis Date ??? 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 Alcohol: 2-3/week Caffeine: 3-4 cups coffee Exercises 6 days a week Adult children. Rarely drives Review of Systems All other systems are negative except as per the HPI. Vital Signs Vitals: 02/24/18 1409 BP: 146/80 BP Location: Left arm Patient Position: Sitting Pulse: 96 SpO2: 97% Weight: 107 kg (236 lb) Height: 182.9 cm (6') Physical Exam General: [...] skin warm and dry, no rash. Assessment Diagnosis Plan 1. Obstructive sleep apnea syndrome 2. Periodic limb movement disorder Iron, TIBC and Ferritin Panel Iron, TIBC and Ferritin Panel 3. Iron deficiency Iron, TIBC and Ferritin Panel Iron, TIBC and Ferritin Panel 4. RLS (restless legs syndrome) 72-year-old man with depression and h/o Afib who follows up for ZENA currently treated with CPAP 8. He is doing well with this treatment. He has had symptomatic improvement in snoring, fatigue, and difficulty sleeping, and expressed commitment to continuing treatment. In the past few years, he has developed worsening sleep quality, increased Lyon and more feelings of leg kicking at night. He also reports symptoms during the daytime consistent with a diagnosis of restless legs. After years, he realized that he had developed side effects with clonazepam, so this was stopped with worsening of sleep quality. He has recently transitioned to gabapentin 400mg (limited by side effects of vision problems and dizziness). He is interested in alternative treatments. We will check a iron panel and ferritin as this has been linked to increased restless leg symptoms. If low, we will supplement and recheck his levels in 3 months. If iron is not low, then would consider switching to Horizant as an alternative to see if this is more effective than generic gabapentin. Plan 1. Continue gabapentin 400 mg 30 min before bed. SED. 2. Check iron panel and ferritin today. Will supplement if low and recheck in 3 months. 3. Continue CPAP 8. Continue replacing and cleaning supplies regularly. 4. Follow-up in 6-7 months. Return 6-7 months. Thank you for allowing me to participate in the care of your patient. If you have any questions, feel free to contact me. Sincerely, Rickey Adkins M.D., Ph.D Sleep Fellow Светлана Castillo M.D., Ph.D. Manager [employer] of Neurology Diplomate, [place] Board of Psychiatry and Neurology with added Qualifications in Sleep Medicine Cosigned by Светлана Castillo MD PhD at 02/24/2018 3:31 PM CDT Associated attestation - Светлана Castillo MD PhD - 02/24/2018 3:31 PM CDT I have seen and examined the patient. I agree with the findings and plan of care as documented in the fellow's note. -RSD documented in this encounter Plan of Treatment Not on file documented as of this encounter Procedures Procedure Name Priority Date/Time Associated Diagnosis Comments IRON, TIBC AND FERRITIN PANEL Routine 02/26/2018 11:23 AM CDT Periodic limb movement disorder Iron deficiency documented in this encounter Results * Iron, TIBC and Ferritin Panel (02/26/2018 11:23 AM CDT) Iron 119 50 - 180 mcg/dL [facility] [place] TIBC 312 250 - 425 mcg/dL (calc) [facility] [place] Iron saturation 38 15 - 60 % (calc) [facility] [place] Ferritin 118 20 - 380 ng/mL [facility] [place] Blood specimen (specimen) 02/26/2018 11:23 AM CDT 02/26/2018 11:24 AM CDT Narrative [facility] - 02/27/2018 6:49 AM CDT FASTING:NO FASTING: NO Resulting Agency Comment Performing Organization Information: ?Site ID: [id number] ?Name: [facility] ?Address: [address] [address] ?Director: Luis Alberto Schuler D.O., MPH us Rickey Adkins MD LAB BLOOD ORDERABLES Zayda l Result [facility] [place] documented in this encounter Visit Diagnoses Diagnosis Obstructive sleep apnea syndrome- Primary Obstructive sleep apnea (adult) (pediatric) Periodic limb movement disorder Iron deficiency Disorders of iron metabolism RLS (restless legs syndrome) Restless legs syndrome (RLS) documented in this encounter Discontinued Medications Medication Sig Discontinue Reason Start Date End Da te clonazePAM (KlonoPIN) 0.5 mg tablet take 1 tablet (0.5MG) by oral route every day 11/03/2012 02/24/2018 documented as of this encounter Care Teams President Practicing Urologist Relationship Specialty Start Date End Date Olaf Carvajal MD [address] [place] [id number] PCP - General 11/03/12 05/02/21 documented as of this encounter
--- OUTSIDE RECORDS SUMMARY | 2024-08-26 05:54 | XMS_ITS | Encounter Summary ---
Author Organization [facility] Address [address] [place] [address] Phone Care Team Providers Care Advertising Material Distributor Name Role Phone Olaf Carvajal MD Primary Care Provider [phone] Encounter Details Date Type Department Care Team (Late st Contact Info) Description 02/01/2018 Orders Only [facility] Neuro Sleep [address] 6th [address] [place] [address] Cindy Churchill RMA Social History Tobacco Use Types Packs/Day Years Used Date Smoking Tobacco: Former Cigarettes Q uit: 09/09/1982 Alcohol Use Standard Drinks/Week Comments Yes 0 (1 standard drink = 0.6 oz pur e alcohol) Sex and Gender Information Value Date Recorded Sex Assigned at Not on file 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 gabapentin (NEURONTIN) 100 mg capsule Take 100 mg by mouth. 07/01/2017 02/14/2018 added in this encounter Care Teams Advertising Material Distributor Relationship Specialty Start Date End Date Olaf Carvajal MD [address] [place] [address] PCP - General 11/03/12 05/02/21 documented as of this encounter
--- OUTSIDE RECORDS SUMMARY | 2024-08-26 06:06 | XMS_ITS | Continuity of Care Document ---
Author Organization [facility] Address [address] [place] [address] [facility] [address] [place] [address] Phone Care Team Providers Care Tso Name Role Phone Demi Gonzalez Unavailable Unavailable Advance Directives Directive Yes / No Effective Date File Name No Information Encounters Encounter Description Practice Location Reason(s) For Visit Diagnoses Date Provider Providers Copied on Encounter [facility], [address], [place], [place], [id number], [place] tel:[phone] [facility] No Information [address] Lisa Simms. [address] [facility] , [address], [place], [address], [place]. tel:[phone] Family History Family Member Type Diagnosis Age At Onset No Information Payers Payer name Insurance type Covered democrat ID Authoriza tion(s) [employer] SOI CI [id number] Social History Type Description Quantity Date Captured Comments Sex Male Smoking Status No Information Chief Complaint And Reason For Visit No Information Reason For Referral Reason For Referral No Information History Of Present Illness Encounter Date Complaint History Of Prese nt Illness No Information Functional Status Date Functional Assessmen t No Information Instructions Date Instruction Additional Infor mation No Information Assessments Type Assessment Date No Information Patient Care Teams Name Effective Dates (start - stop) Status Members No Information
--- OUTSIDE RECORDS SUMMARY | 2024-08-26 06:51 | XMS_ITS | Encounter Summary ---
Author Organization [facility] Address [address] [facility] [facility] [address] [place] [address] Care Team Providers Care Revenue Accounting Manager Name Role Phone Leatha Silvestre MD Primary Care Provider [phone] Reason for Visit * Consultation (Routine) - Closed Specialty Diagnoses / Procedures Referred By Contac t Referred To Contact Cardiology Diagnoses SVT (supraventricular tachycardia) (HCC) Atherosclerotic heart disease of [place] coronary artery with other forms of angina pectoris (HCC) Leatha Silvestre MD Phone: tel: fax: [facility] Medical [facility] Cardiology [address] [facility] [address] [place] [address] Phone: tel: fax: Referral ID Status Reason Start Date Expiration Date V isits Requested Visits Authorized [id number] Closed Specialty Services Required 11/20/2022 05/23/2023 6 6 Encounter Details Date Type Department Care Team (Late st Contact Info) Description 11/20/2022 10:00 AM CDT Office Visit [facility] Cardiology [address] [facility] [address] [address] Efren Sawyer MD [address] [facility] [address] [place] [address] History of coronary artery stent placement (Primary Dx); SVT (supraventricular tachycardia) (CMS/HCC) (HCC); Atherosclerotic heart disease of [place] coronary artery with other forms of angina [...] on file 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 Angiography done here at [facility] demonstrated a high-grade disease in theLAD proximally and in the midportion. It was a heavily calcified vessel. 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 He was referred to [facility] to see Dr. Silva. He underwent higher risk PCI involving stenting of the proximal into the mid LAD as well as DIGITAL OPERATIONS ANALYST intervention of the RPDA. At the time of catheterization is left ventricular systolic function was normal. Following that intervention the patient developed a clinical picture of pericarditis was hospit alized a couple of times at [place]. He did have a small pericardial effusion with that. 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 He did have [...] referral to Cardiology Atherosclerotic heart disease of [place] coronary artery with other forms of angina [...] specified cardiac dysrhythmias Atherosclerotic heart disease of [place] coronary artery with other forms of angina pectoris (HCC) Coronary artery disease (CAD) excluded Observation for suspected cardiovascular disease documented in this encounter Orders Outpatient Referral Count Last Ordered Date Fir st Ordered Date AMB REFERRAL TO CARDIOLOGY 1 11/20/2022 documented in this encounter Care Teams Revenue Accounting Manager Relationship Specialty Start Date End Date Leatha Silvestre MD PCP - General Internal Medicine 11/20/22 05/20/23 documented as of this encounter
--- OUTSIDE RECORDS SUMMARY | 2024-08-26 06:51 | XMS_ITS | Encounter Summary ---
Author Organization [facility] Address [address] [facility] [address] [place] [address] Care Team Providers Care Habilitation Assistant Name Role Phone Nolberto Humphrey DO Primary Care Provider [phone] Encounter Details Date Type Department Care Team (Late st Contact Info) Description 11/08/2021 Orders Only [facility] Cardiology [address] [place] [address] Colby Winters MD [address] [id number] Social History Tobacco Use Types Packs/Day Years Used Date Smoking Tobacco: Former Smokeless Tobacco: Never Alcohol Use Standard Drinks/Week Comments Yes 0 (1 standard drink = 0.6 oz pur e alcohol) Sex and Gender Information Value Date Recorded Sex Assigned at Not on file 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
--- OUTSIDE RECORDS SUMMARY | 2024-08-26 06:51 | XMS_ITS | Encounter Summary ---
Author Organization [facility] Address [address] [facility] [address] [place] [address] Care Team Providers Care Sanitation Superintendent Name Role Phone Nolberto Humphrey DO Primary Care Provider [phone] Encounter Details Date Type Department Care Team (Late st Contact Info) Description 07/24/2021 Telephone [facility] Cardiology [address] [place] [address] Efren Sawyer MD [address] [place], [place] [id number] Social History Tobacco Use Types Packs/Day Years Used Date Smoking Tobacco: Former Smokeless Tobacco: Never Alcohol Use Standard Drinks/Week Comments Yes 0 (1 standard drink = 0.6 oz pur e alcohol) Sex and Gender Information Value Date Recorded Sex Assigned at Not on file 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 Scheduled pt for RN visit today. UCT SAFETY AND STANDARDS ENGINEER * Telephone Encounter - Jeyson Escoto - 07/24/2021 8:34 AM CST Pt called requesting a f/u appt for angioplasty surgery done at [place] [facility] with a different provider pt states the area is hardened and when asked if he had contacted the preforming physician pt said no,please advise.Thank you Contact:[phone] UCT SAFETY AND STANDARDS ENGINEER documented in this encounter Plan of Treatment Not on file documented as of this encounter Visit Diagnoses Not on filedocumented in this encounter Care Teams Sanitation Superintendent Relationship Specialty Start Date End Date Nolberto Humphrey DO PCP - General Internal Medicine 05/03/21 11/19/22 documented as of this encounter
--- OUTSIDE RECORDS SUMMARY | 2024-08-26 06:51 | XMS_ITS | Encounter Summary ---
Author Organization [facility] Address [address] [place] [address] Care Team Providers Care Print Washer Name Role Phone Nolberto Humphrey DO Primary Care Provider Reason for Visit * Reason Onset Date Comments Cardiac Rehab Final f/u 10/09/2021 Encounter Details Date Type Department Care Team (Late st Contact Info) Description 10/09/2021 Telephone [facility] Case Management [facility] [place] [address] Michele Barba EP-C Cardiac Rehab Final f/u Social History Tobacco Use Types Packs/Day Years Used Date Smoking Tobacco: Former Smokeless Tobacco: Never Alcohol Use Standard Drinks/Week Comments Yes 0 (1 standard drink = 0.6 oz pur e alcohol) Sex and Gender Information Value Date Recorded Sex Assigned at Not on file 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 No answer. LMOR x 2 with name, department and office phone number. PASTEURIZER * Telephone Encounter - Michele Barba EP-C - 10/09/2021 2:17 PM CST Called pt to ask Cardiac Rehab Navigator 90-day f/u questions. No answer. LMOR x 1 name, departmentand office phone number. Will plan to call again at a later date if pt does not return call. PASTEURIZER documented in this encounter Plan of Treatment Not on file documented as of this encounter Visit Diagnoses Not on filedocumented in this encounter Care Teams Print Washer Relationship Specialty Start Date End Date Nolberto Humphrey DO PCP - General Internal Medicine 05/03/21 11/19/22 documented as of this encounter
--- OUTSIDE RECORDS SUMMARY | 2024-08-26 06:51 | XMS_ITS | Clinical Summary ---
Author Organization [facility] 40 Address [address] [place] [address] Care Team Providers Care Stone Crusher Operator Name Role Phone Ciaran Rizo MD Primary Care Provider [phone] Allergies No known active allergies Medications rOPINIRole [...] tachycardia) Assessment & Plan (09/12/2021 4:31 PM SECURITY FIELD SUPERVISOR): Recurrent, symptomatic, drug-refractory SVT. Possibly triggering AF. [...] 01/04/2022 Assessment & Plan (09/12/2021 4:29 PM SECURITY FIELD SUPERVISOR): Infrequent AF episodes seen on ambulatory monitoring and in hospital. [place] unclear, but appears to be overestimated by ambulatory monitor (confused with SVT). Suspect AF may be triggered primarily by SVT. Would recommend starting with SVT ablation and implantation of an ILR for AF surveillance. If symptomatic AF returns, AF ablation or antiarrhythmic drugs can be considered. [id number] = 3. Anticoagulation is reasonable for now, and decisions regarding need for long- term anticoagulation can be guided by ILR surveillance data. --Continue apixaban 5 mg PO BID. Hold starting 2 days prior to EPS/SVT ablation. --ILR implantation at time of SVT ablation. --ILR data to guide need for moth exterminator anticoagulation. Encounters Date Type Department Care Team Description 05/28/2024 8:45 AM CDT Office Visit [facility] Medical Group Cardiology [address] [place] [address] Efren Sawyer MD History of [...] on file Legal Sex Male 2:20 PM SECURITY FIELD SUPERVISOR Gender Identity Not on file Sexual Orientation Straight 07/05/2021 1: 06 PM CDT Obstetrics History Last Filed Vital Signs Vital Sign Reading Time Taken Comments Blood Pressure 160/68 05/28/2024 7:54 AM CDT Pulse 88 05/28/2024 7:54 AM CDT Temperature 36.9 ??C (98.4 ??F) 07/13/2021 4:24 AM CD T Respiratory Rate 16 09/12/2021 12:4 7 PM SECURITY FIELD SUPERVISOR Oxygen Saturation 97% 05/28/2024 7:54 AM CDT [...] (#1) 2024 Medical Devices Implanted Type Area Habitat Biologist Device Identifier Shelf Expiration Date Model / Serial / Lot [employer]River [id number] Synergy Xd Monorail 2.5mm 38mm 144cm Delivery System 1 Access - S0 - [id number] Implanted:Qty: 1 on 07/11/2021 by Rosendo Silva MD at [facility] Stent [employer] 04/05/2023 [id number] 250 / 0 / [id number] Description:LAD [employer] [id number] Stent Drug Eluting S Megatron Us Mr 3.23m89sj - S0 - [id number] Implanted:Qty: 1 on 07/11/2021 by Rosendo Silva MD at [facility] [employer] 01/03/2022 [id number] 350 / 0 / [id number] Description:LAD [employer] [id number] Synergy Xd Monorail 3mm 38mm 144cm Delivery System 1 Access Port - S0 - [id number] Implanted:Qty: 1 on 07/11/2021 by Rosendo Silva MD at [facility] [employer] 02/20/2023 [id number] 300 / 0 / [id number] Description:RCA [employer] [id number] Synergy Xd Monorail 3.5mm 28mm 144cm Delivery System 1 Access - S0 - [id number] Implanted:Qty: 1 on 07/11/2021 by Rosendo Silva MD at [facility] [employer]ent [employer] 02/09/2023 [id number] 350 / 0 / [id number] Description:RCA [employer] 91038-13 Perclose 6fr Suture Mediate Knot Push Vascular Device Closure - S0 - [id number] Implanted:Qty: 1 on 07/11/2021 by Rosendo Silva MD at [facility] [employer] 04/08/2023 [id number] / 0 / [id number] Insurance [facility] Advance Directives For more information, please contact: [phone] * Full Code (Latest Code Status on File) Date Activated Date Inactivated Comments 07/11/2021 5:10 PM 07/13/2021 9:05 PM Care Teams Stone Crusher Operator Relationship Specialty Start Date End Date Ciaran Rizo MD PCP - General Family Practice 05/21/23
--- OUTSIDE RECORDS SUMMARY | 2024-08-26 06:51 | XMS_ITS | Encounter Summary ---
Author Organization [facility] Healthcare Address [address] [place] [address] Care Team Providers Care Aircraft Armorer Name Role Phone Ciaran Rizo MD Primary Care Provider [phone] Encounter Details Date Type Department Care Team (Late st Contact Info) Description 09/06/2023 Telephone [facility] Medical Group Cardiology [address] [place] [address] Efren Sawyer MD [address] [place], [place] [id number] Social History Tobacco Use Types Packs/Day Years Used Date Smoking Tobacco: Former Smokeless Tobacco: Never Alcohol Use Standard Drinks/Week Comments Yes 0 (1 standard drink = 0.6 oz pur e alcohol) Sex and Gender Information Value Date Recorded Sex Assigned at Not on file Legal Sex Male 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 Contact:[phone] ED FRAMES ASSEMBLER documented in this encounter Plan of Treatment Not on file documented as of this encounter Visit Diagnoses Not on filedocumented in this encounter Care Teams Aircraft Armorer Relationship Specialty Start Date End Date Ciaran Rizo MD PCP - General Family Practice 05/21/23 documented as of this encounter
--- OUTSIDE RECORDS SUMMARY | 2024-08-26 06:51 | XMS_ITS | Encounter Summary ---
Author Organization [facility] Medical Group Address [address] [place] [address] Care Team Providers Care Spark Plug Assembler Name Role Phone Nolberto Humphrey DO Primary Care Provider [phone] Encounter Details Date Type Department Care Team (Late st Contact Info) Description 07/14/2021 Telephone [facility] Medical [facility] Cardiology [address] [place] [address] Rosendo Silva MD [address] [place] [address] Social History Tobacco Use Types Packs/Day Years Used Date Smoking Tobacco: Former Smokeless Tobacco: Never Alcohol Use Standard Drinks/Week Comments Yes 0 (1 standard drink = 0.6 oz pur e alcohol) Sex and Gender Information Value Date Recorded Sex Assigned at Not on file Legal Sex Male 2: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 He had a new onset of a-fib,heart rate 140-150. Patient did feel a skipped heat beat withthis episode. documented in this encounter Plan of Treatment Not on file documented as of this encounter Visit Diagnoses Not on filedocumented in this encounter Care Teams Spark Plug Assembler Relationship Specialty Start Date End Date Nolberto Humphrey DO PCP - General Internal Medicine 05/03/21 11/19/22 documented as of this encounter
--- OUTSIDE RECORDS SUMMARY | 2024-08-26 06:51 | XMS_ITS | Encounter Summary ---
Author Organization [facility] Medical Group Address [address] [place] [address] Care Team Providers Care Pressure Tester Operator Name Role Phone Nolberto Humphrey DO Primary Care Provider Encounter Details Date Type Department Care Team (Late st Contact Info) Description 01/01/2022 Telephone [facility] Medical Group Cardiology [address] [place] [address] Efren Sawyer MD [address] [place], [place] [address] Social History Tobacco Use Types Packs/Day Years Used Date Smoking Tobacco: Former Smokeless Tobacco: Never Alcohol Use Standard Drinks/Week Comments Yes 0 (1 standard drink = 0.6 oz pur e alcohol) Sex and Gender Information Value Date Recorded Sex Assigned at Not on file Legal Sex Male 2: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 12/22 he was prescribed a new med and his BP has increased and he he has edema in his feet.Thank you Contact:[phone] documented in this encounter Plan of Treatment Not on file documented as of this encounter Visit Diagnoses Not on filedocumented in this encounter Care Teams Pressure Tester Operator Relationship Specialty Start Date End Date Nolberto Humphrey DO PCP - General Internal Medicine 05/03/21 11/19/22 documented as of this encounter
--- OUTSIDE RECORDS SUMMARY | 2024-08-26 06:51 | XMS_ITS | Encounter Summary ---
Author Organization [facility] Medical Group Address [address] [place] [address] Care Team Providers Care Animal Ride Manager Name Role Phone Nolberto Humphrey DO Primary Care Provider [phone] Reason for Visit * Reason Comments Follow-up SOB- 4 month fu Encounter Details Date Type Department Care Team (Late st Contact Info) Description 08/17/2021 11:15 AM FIRE HYDRANT MECHANIC Office Visit [facility] Medical Group Cardiology [address] [place] [address] Efren Sawyer MD [address] [place] [address] SVT (supraventricular tachycardia) (CMS/HCC) (HCC) (Primary Dx); Atrial fibrillation, unspecified type (HCC) Social History Tobacco Use Types Packs/Day Years Used Date Smoking Tobacco: Former Smokeless Tobacco: Never Alcohol Use Standard Drinks/Week Comments Yes 0 (1 standard drink = 0.6 oz pur e alcohol) Sex and Gender Information Value Date Recorded Sex Assigned at Not on file Legal Sex Male 2:20 PM FIRE HYDRANT MECHANIC Gender Identity Not on file Sexual Orientation Straight 07/05/2021 1: 06 PM CDT documented as of this encounter Last Filed Vital Signs Vital Sign Reading Time Taken Comments Blood Pressure 116/62 08/17/2021 11:17 AM FIRE HYDRANT MECHANIC Pulse 80 08/17/2021 11:17 AM FIRE HYDRANT MECHANIC Temperature - - Respiratory Rate - - Oxygen Saturation 97% 08/17/2021 11:17 AM FIRE HYDRANT MECHANIC Inhaled Oxygen Concentration - - Weight 104.8 kg (231 lb) 08/17/2021 11:17 AM FIRE HYDRANT MECHANIC Height 182.9 cm (6') 08/17/2021 11:17 AM FIRE HYDRANT MECHANIC Body Mass Index 31.33 08/17/2021 11:17 AM FIRE HYDRANT MECHANIC documented in this encounter Progress Notes * [...] for an angiogram. 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 It was a heavily calcified vessel. 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 He was referred to [place] to [facility] to see Dr. Silva. He underwent higher risk PCI involving stenting of the proximal into the mid LAD as well as BEE KEEPER intervention of the RPDA. At the time [...] has an appointment in follow-up with an distributor sales consultant in September also at [facility] for further discussion of this. For this [...] and continue phase 2 rehab Follow-up with or in 4 months Anticipate reviewing the distributor sales consultant note regarding his atrial fibrillation. Efren Sawyer MD HYDRANT MECHANIC documented in this encounter Plan of Treatment [...] documented as of this encounter Care Teams Animal Ride Manager Relationship Specialty Start Date End Date Nolberto Humphrey DO PCP - General Internal Medicine 05/03/21 11/19/22 documented as of this encounter
--- OUTSIDE RECORDS SUMMARY | 2024-08-26 06:51 | XMS_ITS | Encounter Summary ---
Author Organization [facility] Medical Group Address [address] [place] [address] Care Team Providers Care Corrugator Supervisor Name Role Phone Nolberto Humphrey DO Primary Care Provider [phone] Reason for Visit * Reason Onset Date Comments Med Management 08/11/2021 Encounter Details Date Type Department Care Team (Late st Contact Info) Description 08/11/2021 Telephone [facility] Medical [facility] Cardiology [address] [place] [address] Efren Saravia MD [address] [place] [address] Med Management Social History Tobacco Use Types Packs/Day Years Used Date Smoking Tobacco: Former Smokeless Tobacco: Never Alcohol Use Standard Drinks/Week Comments Yes 0 (1 standard drink = 0.6 oz pur e alcohol) Sex and Gender Information Value Date Recorded Sex Assigned at Not on file Legal Sex Male 2:20 PM CONCRETE GUN OPERATOR Gender Identity Not on file Sexual Orientation Straight 07/05/2021 1: 06 PM CDT documented as of this encounter Miscellaneous Notes * Telephone Encounter - Kelsie Wild - 08/11/2021 8:10 AM CST Lm on in regards to Dr Silva rec. RETE GUN OPERATOR * Telephone Encounter - Kelsie Wild - 08/11/2021 8:08 AM CST ----- Message from Rosendo Silva MD sent at 08/10/2021 8:18 PM CONCRETE GUN OPERATOR ----- Continue eliquis RETE GUN OPERATOR * Telephone Encounter - Kelsie Wild - 08/11/2021 8:07 AM CST ----- Message from Rosendo Silva MD sent at 08/10/2021 8:18 PM CONCRETE GUN OPERATOR ----- Continue eliquis RETE GUN OPERATOR * Telephone Encounter - Kelsie Wild - 08/11/2021 8:07 AM CST ----- Message from Rosendo Silva MD sent at 08/10/2021 8:18 PM CONCRETE GUN OPERATOR ----- Continue eliquis RETE GUN OPERATOR documented in this encounter Plan of Treatment Not on file documented as of this encounter Visit Diagnoses Not on filedocumented in this encounter Care Teams Corrugator Supervisor Relationship Specialty Start Date End Date Nolberto Humphrey DO PCP - General Internal Medicine 05/03/21 11/19/22 documented as of this encounter
--- OUTSIDE RECORDS SUMMARY | 2024-08-26 06:51 | XMS_ITS | Encounter Summary ---
Author Organization [facility] Medical Group Address [address] [place] [address] Care Team Providers Care Change Control Analyst Name Role Phone Nolberto Humphrey DO Primary Care Provider [phone] Encounter Details Date Type Department Care Team (Late st Contact Info) Description 12/15/2021 Telephone [facility] Medical Group Cardiology [address] [place] [address] Gwen Allan, BREE [address] [place], [place] [id number] Social History Tobacco Use Types Packs/Day Years Used Date Smoking Tobacco: Former Smokeless Tobacco: Never Alcohol Use Standard Drinks/Week Comments Yes 0 (1 standard drink = 0.6 oz pur e alcohol) Sex and Gender Information Value Date Recorded Sex Assigned at Not on file Legal Sex Male 2:20 PM STAVE MACHINE TENDER Gender Identity Not on file Sexual [...] on filedocumented in this encounter Care Teams Change Control Analyst Relationship Specialty Start Date End Date Nolberto Humphrey DO PCP - General Internal Medicine 05/03/21 11/19/22 documented as of this encounter
--- OUTSIDE RECORDS SUMMARY | 2024-08-26 06:51 | XMS_ITS | Encounter Summary ---
Author Organization [facility] Medical Group Address [address] [place] [address] Care Team Providers Care Cardiac Cath Lab Radiology Technologist Name Role Phone Nolberto Humphrey Primary Care Provider [phone] Reason for Visit * Cardiology (Routine) - Closed Specialty Diagnoses / Procedures Referred By Contac t Referred To Contact Diagnoses Pericardial effusion Procedures Transthoracic Echo Complete W Doppler/CF Tonny Wheatley NP [address] [facility] [address] [address] Phone: tel: fax: [facility] Medical Group Referral ID Status Reason Start Date Expiration Date Visits Re quested Visits Authorized [id number] Closed 11/10/2021 12/10/2022 1 1 Encounter Details Date Type Department Care Team (Latest Contact Info) Description 12/11/2021 2:00 PM CDT Ancillary Procedure [facility] Medical [facility] Cardiology [address] [address] Pericardial effusion Social History Tobacco Use Types Packs/Day Years Used Date Smoking Tobacco: Former Smokeless Tobacco: Never Alcohol Use Standard Drinks/Week Comments Yes 0 (1 standard drink = 0.6 oz pur e alcohol) Sex and Gender Information Value Date Recorded Sex Assigned at Not on file 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 Left Ventricle: Normal left ventricular systolic [...] Procedure Note Colby Winters MD - 12/11/2021 [facility] Medical Group Cardiology [address], [place] [address] [address], [place] [address] P:[phone] P:[phone] Echocardiographic Report Patient Name: OLAF NEWELLPatient ID: [id number] : [id number] Date: 12/11/2021 1:48:18 PM Gender: MAccession #: [id number] Tech: GMLocation: [place] Ref.Provider: TONNY WHEATLEYHeight(Cm): 183 BSA: 2.25Weight(Kg): 102.97 [...] 16.00 - 28.00 ] cc/m2 MV Decel Tlco694 [ 150 - 200 ] msec ACS MM 2.30 cm PV Peak Vel0.96 [ 0.40 - 0.80 ] m/s TR Peak Vel2.11 [ 0.40 - 0.80 ] m/s TR Peak PG 18mmHg RVSP26.00 mmHg E'0.10 E/E' 6 Findings: Interpretation Site: Exam was interpreted at [facility]. Left Ventricle: Normal left ventricular systolic [...] pericardium documented in this encounter Care Teams Cardiac Cath Lab Radiology Technologist Relationship Specialty Start Date End Date Nolberto Humphrey DO PCP - General Internal Medicine 05/03/21 11/19/22 documented as of this encounter
--- OUTSIDE RECORDS SUMMARY | 2024-08-26 06:51 | XMS_ITS | Referral Summary ---
Author Organization [facility] 40 Address [address] [place] [address] Care Team Providers Care Ehs Specialist Name Role Phone Ciaran Rizo MD Primary Care Provider [phone] Encounters Date Type Department Care Team Description 05/28/2024 8:45 AM CDT Office Visit [facility] Medical Group Cardiology [address] [place] [address] Efren Sawyer MD History of [...] tachycardia) Assessment & Plan (09/12/2021 4:31 PM NAVAL AIRCREWMAN HELICOPTER): Recurrent, symptomatic, drug-refractory SVT. Possibly triggering AF. [...] 01/04/2022 Assessment & Plan (09/12/2021 4:29 PM NAVAL AIRCREWMAN HELICOPTER): Infrequent AF episodes seen on ambulatory monitoring and in hospital. [place] unclear, but appears to be overestimated by ambulatory monitor (confused with SVT). Suspect AF may be triggered primarily by SVT. Would recommend starting with SVT ablation and implantation of an ILR for AF surveillance. If symptomatic AF returns, AF ablation or antiarrhythmic drugs can be considered. [id number] = 3. Anticoagulation is reasonable for now, and decisions regarding need for long- term anticoagulation can be guided by ILR surveillance data. --Continue apixaban 5 mg PO BID. Hold starting 2 days prior to EPS/SVT ablation. --ILR implantation at time of SVT ablation. --ILR data to guide need for fpc anticoagulation. Social History Tobacco Use Types Packs/Day Years Used Date Smoking Tobacco: Former Smokeless Tobacco: Never Tobacco Cessation:Counseling Given: Not Answered Alcohol Use Standard Drinks/Week Comments Yes 0 (1 standard drink = 0.6 oz pur e alcohol) Sex and Gender Information Value Date Recorded Sex Assigned at Not on file Legal Sex Male 2:20 PM NAVAL AIRCREWMAN HELICOPTER Gender Identity Not on file Sexual Orientation Straight 07/05/2021 1: 06 PM CDT Last Filed Vital Signs Vital Sign Reading Time Taken Comments Blood Pressure 160/68 05/28/2024 7:54 AM CDT Pulse 88 05/28/2024 7:54 AM CDT Temperature 36.9 ??C (98.4 ??F) 07/13/2021 4:24 AM CD T Respiratory Rate 16 09/12/2021 12:4 7 PM NAVAL AIRCREWMAN HELICOPTER Oxygen Saturation 97% 05/28/2024 7:54 AM CDT Inhaled Oxygen Concentration - - Weight 117.1 kg (258 lb 1.6 oz) 05/28/2024 7:54 AM CDT Height 182.9 cm (6') 05/28/2024 7:54 AM CDT Body Mass Index 35 05/28/2024 7:54 AM CDT Plan of Treatment Not on file Medical Devices Implanted Type Area Intelligence Operations Device Identifier Shelf Expiration Date Model / Serial / Lot [employer] [id number] Synergy Xd Monorail 2.5mm 38mm 144cm Delivery System 1 Access - S0 - [id number] Implanted:Qty: 1 on 07/11/2021 by Rosendo Silva MD at [facility] Stent [employer] 04/05/2023 [id number] 250 / 0 / [id number] Description:LAD [employer] [id number] Stent Drug Eluting S Megatron Us Mr 3.94s96uj - S0 - [id number] Implanted:Qty: 1 on 07/11/2021 by Rosendo Silva MD at [facility] Stent [employer] 01/03/2022 [id number] 350 / 0 / [id number] Description:LAD [employer] [id number] Synergy Xd Monorail 3mm 38mm 144cm Delivery System 1 Access Port - S0 - [id number] Implanted:Qty: 1 on 07/11/2021 by Rosendo Silva MD at [facility] Stent [employer] 02/20/2023 [id number] 300 / 0 / [id number] Description:RCA [employer] [id number] Synergy Xd Monorail 3.5mm 28mm 144cm Delivery System 1 Access - S0 - [id number] Implanted:Qty: 1 on 07/11/2021 by Rosendo Silva MD at [facility] Stent [employer] 02/09/2023 [id number] 350 / 0 / [id number] Description:RCA [employer] 86401-67 Perclose 6fr Suture Mediate Knot Push Vascular Device Closure - S0 - [id number] Implanted:Qty: 1 on 07/11/2021 by Rosendo Silva MD at [facility] [employer] 04/08/2023 [id number] / 0 / [id number] Insurance [facility] Advance Directives For more information, please contact: [phone] * Full Code (Latest Code Status on File) Date Activated Date Inactivated Comments 07/11/2021 5:10 PM 07/13/2021 9:05 PM Care Teams Ehs Specialist Relationship Specialty Start Date End Date Ciaran Rizo MD PCP - General Family Practice 05/21/23
--- OUTSIDE RECORDS SUMMARY | 2024-08-26 06:51 | XMS_ITS | Encounter Summary ---
Author Organization [facility] Medical Group Address [address] [place] [address] Care Team Providers Care Tax Attorney Name Role Phone Nolberto Humphrey DO Primary Care Provider [phone] Encounter Details Date Type Department Care Team (Late st Contact Info) Description 11/09/2021 Orders Only [facility] Medical Group Cardiology [address] [place] [address] Colby Winters MD [address] [id number] Social History Tobacco Use Types Packs/Day Years Used Date Smoking Tobacco: Former Smokeless Tobacco: Never Alcohol Use Standard Drinks/Week Comments Yes 0 (1 standard drink = 0.6 oz pur e alcohol) Sex and Gender Information Value Date Recorded Sex Assigned at Not on file Legal Sex Male 2:20 PM FILLING STATION EQUIPMENT MECHANIC Gender Identity Not on file Sexual [...] on filedocumented in this encounter Care Teams Tax Attorney Relationship Specialty Start Date End Date Nolberto Humphrey DO PCP - General Internal Medicine 05/03/21 11/19/22 documented as of this encounter
--- OUTSIDE RECORDS SUMMARY | 2024-08-26 06:51 | XMS_ITS | Encounter Summary ---
Author Organization [facility] Medical Group Address [address] [facility] [address] [place] [address] Care Team Providers Care Immunology Specialist Name Role Phone Ciaran Rizo MD Primary Care Provider [phone] Reason for Visit * Cardiology (Routine) - Closed Specialty Diagnoses / Procedures Referred By Contac t Referred To Contact Diagnoses History of coronary artery stent placement Other forms of angina pectoris (HCC) Procedures Stress Echo Exercise W Doppler/CF Efren Sawyer MD [address] [address] Phone: tel: fax: [facility] Medical [facility] Referral ID Status Reason Start Date Expiration Date Visits Re quested Visits Authorized [id number] Closed 05/21/2023 06/19/2024 1 1 Encounter Details Date Type Department Care Team (Latest Contact Info) Description 05/28/2023 11:15 AM CDT Ancillary Procedure [facility] Medical [facility] Cardiology [address] [place] [id number] History of coronary artery stent placement; Other forms of angina pectoris (HCC) Social History Tobacco Use Types Packs/Day Years Used Date Smoking Tobacco: Former Smokeless Tobacco: Never Alcohol Use Standard Drinks/Week Comments Yes 0 (1 standard drink = 0.6 oz pur e alcohol) Sex and Gender Information Value Date Recorded Sex Assigned at Not on file Legal Sex Male 2:20 PM BILL PEDDLER Gender Identity Not on file Sexual Orientation [...] AM CDT Narrative 05/28/2023 5:10 PM CDT [facility] Medical [facility] Cardiology [address] [facility] [address], [place] [address] [address] [facility] [address], [place] [address] P:[phone] P:[phone] Echocardiographic Report Patient Name: OLAF NEWELL JO : 1945 Study Date: 05/28/2023 11:43:07 AM Gender: M Tech: Location: [place] Ref.Provider: EFREN SAWYER Height(Cm): 183 BSA: 2.42 [...] BP - 180/64. Rate Pressure Product - 24878. METS Achieved - 7.00. Percent Predicted Maximal HR Achieved - 99 %. Interpretation Site: Exam was interpreted at [facility]. Performance: Average exercise functional capacity. Hemodynamic [...] BP - 180/64. Rate Pressure Product - 21368. METS Achieved - 7.00. Percent Predicted Maximal [...] %. Electronically Signed By: Efren Sawyer MD, [facility] 2023-05-28 17:10:05 CDT CC: CC: Procedure Note Efren Sawyer MD - 05/28/2023 [facility] Medical Group Cardiology [address] [facility] [address], [place] [address] [address] [facility] [address], [place] [address] P:[phone] P:[phone] Echocardiographic Report Patient Name: OLAF NEWELL JOPatient ID: [id number] : [id number] Date: 05/28/2023 11:43:07 AM Gender: Raeganion #: [id number] [facility] [place] Ref.Provider: Rafi SAWYERight(Cm): 183 BSA: 2.42Weight(Kg): 114.8 [...] BP - 180/64. Rate Pressure Product - 72018. METS Achieved - 7.00.Percent Predicted Maximal HR Achieved - 99 %. Interpretation Site: Exam was interpreted at [facility]. Performance: Average exercise functional capacity. Hemodynamic [...] BP - 180/64. Rate Pressure Product - 50145. METS Achieved - 7.00.Percent Predicted Maximal HR [...] %. Electronically Signed By: Efren Sawyer MD, [facility] 2023-05-28 17:10:05 CDT CC: CC: Efren Sawyer MD CV ECHO PROCEDURES Final Result documented in this encounter Visit Diagnoses Diagnosis History of coronary artery stent placement Other forms of angina pectoris (HCC) documented in this encounter Care Teams Immunology Specialist Relationship Specialty Start Date End Date Ciaran Rizo MD PCP - General Family Practice 05/21/23 documented as of this encounter
--- OUTSIDE RECORDS SUMMARY | 2024-08-26 06:51 | XMS_ITS | Encounter Summary ---
Author Organization [facility] Medical [facility] Address [address] [facility] [address] [place] [address] Care Team Providers Care Home Office Representative Name Role Phone Nolberto Humphrey DO Primary Care Provider [phone] Encounter Details Date Type Department Care Team (Late st Contact Info) Description 12/20/2021 Orders Only [facility] Cardiology [address] [place] [address] Efren Sawyer MD [address] [place], [place] [phone] Social History Tobacco Use Types Packs/Day Years Used Date Smoking Tobacco: Former Smokeless Tobacco: Never Alcohol Use Standard Drinks/Week Comments Yes 0 (1 standard drink = 0.6 oz pur e alcohol) Sex and Gender Information Value Date Recorded Sex Assigned at Not on file Legal Sex Male 2:20 PM RESEARCH CENTER DIRECTOR Gender Identity Not on file [...] on filedocumented in this encounter Care Teams Home Office Representative Relationship Specialty Start Date End Date Nolberto Humphrey DO PCP - General Internal Medicine 05/03/21 11/19/22 documented as of this encounter
--- OUTSIDE RECORDS SUMMARY | 2024-08-26 06:51 | XMS_ITS | Encounter Summary ---
Author Organization [facility] Medical Group Address [address] [facility] [address] [place] [address] Care Team Providers Care Paper Sorter And Counter Name Role Phone Nolberto Humphrey DO Primary Care Provider [phone] Encounter Details Date Type Department Care Team (Late st Contact Info) Description 12/21/2021 Orders Only [facility] Medical [facility] Cardiology [address] [place] [address] Efren Sawyer MD [address] [place] [address] Social History Tobacco Use Types Packs/Day Years Used Date Smoking Tobacco: Former Smokeless Tobacco: Never Alcohol Use Standard Drinks/Week Comments Yes 0 (1 standard drink = 0.6 oz pur e alcohol) Sex and Gender Information Value Date Recorded Sex Assigned at Not on file Legal Sex Male 2:20 PM SHOE COBBLER Gender Identity Not on file Sexual Orientation [...] on filedocumented in this encounter Care Teams Paper Sorter And Counter Relationship Specialty Start Date End Date Nolberto Humphrey DO PCP - General Internal Medicine 05/03/21 11/19/22 documented as of this encounter
--- OUTSIDE RECORDS SUMMARY | 2024-08-26 06:51 | XMS_ITS | Encounter Summary ---
Author Organization [facility] Medical [facility] Address [address] [facility] [address] [place] [address] Care Team Providers Care Front Office Attendant Name Role Phone Nolberto Humphrey DO Primary Care Provider [phone] Leatha Silvestre MD Primary Care Provider [phone] Reason for Referral * Cardiology (Routine) - Closed Specialty Diagnoses / Procedures Referred By Controsa t Referred To Contact Diagnoses Pericardial effusion Procedures Transthoracic Echo Complete W Doppler/CF Tonny Wheatley NP [address] [facility] [address] [place] [address] Phone: tel: fax: [facility] Medical [facility] Referral ID Status Reason Start Date Expiration Date Visits Re quested Visits Authorized [id number] Closed 11/10/2021 12/10/2022 1 1 PATTERN MARKER Encounter Details Date Type Department Care Team (Late st Contact Info) Description 11/10/2021 Telephone [facility] Medical [facility] Cardiology [address] [place] [address] Tonny Wheatley NP [address] [place] [address] Social History Tobacco Use Types Packs/Day Years Used Date Smoking Tobacco: Former Smokeless Tobacco: Never Alcohol Use Standard Drinks/Week Comments Yes 0 (1 standard drink = 0.6 oz pur e alcohol) Sex and Gender Information Value Date Recorded Sex Assigned at Not on file Legal Sex Male 2:20 PM HAND PATTERN MARKER Gender Identity Not on file Sexual Orientation Straight 07/05/2021 1: 06 PM CDT documented as of this encounter Plan of Treatment Not on file documented as of this encounter Results * TRANSTHORACIC ECHO (TTE) COMPLETE W DOPPLER/CF WO CONTRAST (12/11/2021 2:35 PM CDT) Anatomical Region Laterality Modality Ultrasound 12/11/2021 1:48 PM CDT Narrative 12/11/2021 3:53 PM CDT [facility] Medical Group Cardiology [address] [facility] [address], [place] [address] [address], [place] [address] P:[phone] P:[phone] Echocardiographic Report Patient Name: OLAF NEWELL : [...] Findings: Interpretation Site: Exam was interpreted at [facility]. Left Ventricle: Normal left ventricular systolic [...] Procedure Note Colby Winters MD - 12/11/2021 [facility] Medical [facility] Cardiology [address] [facility] [address], [place] [address] [address] [facility] [address], [place] [address] P:[phone] P:[phone] Echocardiographic Report Patient Name: OLAF NEWELLPatient ID: [id number] : [id number] Date: 12/11/2021 1:48:18 PM Gender: MAccession #: [id number] Tech: GMLocation: [place] Ref.Provider: TONNY WHEATLEYHeight(Cm): 183 [...] 16.00 - 28.00 ] cc/m2 MV Decel Yask209 [ 150 - 200 ] msec ACS MM 2.30 cm PV Peak Vel0.96 [ 0.40 - 0.80 ] m/s TR Peak Vel2.11 [ 0.40 - 0.80 ] m/s TR Peak PG 18mmHg RVSP26.00 mmHg E'0.10 E/E' 6 Findings: Interpretation Site: Exam was interpreted at [facility]. Left Ventricle: Normal left ventricular systolic [...] Winters MD 2021-12-11 15:53:03 CDT Tonny Wheatley MOSAIC TILE MAKER CV ECHO PROCEDURES Final Res ult documented in this encounter Visit Diagnoses Diagnosis Pericardial effusion- Primary Unspecified disease of pericardium Pericardial effusion Unspecified disease of pericardium documented in this encounter Care Teams Front Office Attendant Relationship Specialty Start Date End Date Nolberto Humphrey DO PCP - General Internal Medicine 05/03/21 11/19/22 Leatha Silvestre MD PCP - General Internal Medicine 11/20/22 05/20/23 documented as of this encounter
--- OUTSIDE RECORDS SUMMARY | 2024-08-26 06:51 | XMS_ITS | Encounter Summary ---
Author Organization [facility] Medical [facility] Address [address] [facility] [address] [place] [address] Care Team Providers Care Overhead Garage Door Hanger Name Role Phone Nolberto Humphrey DO Primary Care Provider [phone] Encounter Details Date Type Department Care Team (Late st Contact Info) Description 11/08/2021 Orders Only [facility] Cardiology [address] [place] [address] Colby Winters MD [address] [id number] Social History Tobacco Use Types Packs/Day Years Used Date Smoking Tobacco: Former Smokeless Tobacco: Never Alcohol Use Standard Drinks/Week Comments Yes 0 (1 standard drink = 0.6 oz pur e alcohol) Sex and Gender Information Value Date Recorded Sex Assigned at Not on file Legal Sex Male 2:20 PM GEOPHYSICAL PROSPECTING SURVEYOR Gender Identity Not on file Sexual Orientation [...] on filedocumented in this encounter Care Teams Overhead Garage Door Hanger Relationship Specialty Start Date End Date Nolberto Humphrey DO PCP - General Internal Medicine 05/03/21 11/19/22 documented as of this encounter
--- OUTSIDE RECORDS SUMMARY | 2024-08-26 06:51 | XMS_ITS | Encounter Summary ---
Author Organization [facility] Medical Group Address [address] [facility] [address] [place] [address] Care Team Providers Care Boilermaker Assembly And Erection Name Role Phone Nolberto Humphrey DO Primary Care Provider [phone] Reason for Visit * Reason Comments Hospital Follow Up Hospital and ER Foll ow up Encounter Details Date Type Department Care Team (Late st Contact Info) Description 01/04/2022 11:15 AM CDT Office Visit [facility] Medical Group Cardiology [address] [place] [address] Efren Sawyer MD [address] [place] [address] Atrial fibrillation, unspecified type (HCC) [...] on file Legal Sex Male 2:20 PM LEATHER STITCHER Gender Identity Not on file Sexual Orientation [...] CARE GROUP CLINIC FOLLOW UP 01/04/2022 Olaf Crotf is a 76 y.o. male who presents [...] for an angiogram. Angiography done here at [facility] demonstrated a high-grade disease in theLAD proximally and in the midportion. It was a heavily calcified vessel. 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 He was referred to [facility] to see Dr. Silva. He underwent higher risk PCI involving stenting of the proximal into the mid LAD as well as RESIDENTIAL NURSE intervention of the RPDA. At the time [...] of atrial fib. He was hospitalized at [place] in the middle of December of 2020 [...] 04/27/2022 added in this encounter Care Teams Boilermaker Assembly And Erection Relationship Specialty Start Date End Date Nolberto Humphrey DO PCP - General Internal Medicine 05/03/21 11/19/22 documented as of this encounter
--- OUTSIDE RECORDS SUMMARY | 2024-08-26 06:51 | XMS_ITS | Encounter Summary ---
Author Organization [facility] Healthcare Address [address] [place] [address] Care Team Providers Care Vocational Training Director Name Role Phone Ciaran Rizo MD Primary Care Provider [phone] Reason for Visit * Reason Comments Follow-up 6 mo f/u SVT * Consultation (Routine) - Closed Specialty Diagnoses / Procedures Referred By Contac t Referred To Contact Cardiology Diagnoses SVT (supraventricular tachycardia) (HCC) History of coronary artery stent placement Ciaran Rizo MD Phone: tel: fax: Efren Sawyer MD [address] [address] Phone: tel: fax: Referral ID Status Reason Start Date Expiration Date V isits Requested Visits Authorized [id number] Closed Specialty Services Required 11/08/2023 01/07/2024 10 10 Encounter Details Date Type Department Care Team (Late st Contact Info) Description 11/28/2023 9:00 AM CDT Office Visit [facility] Medical Group Cardiology [address] [address] Efren Sawyer MD [address] [address] SVT (supraventricular tachycardia) (Primary Dx); History of coronary artery stent placement Social History Tobacco Use Types Packs/Day Years Used Date Smoking Tobacco: Former Smokeless Tobacco: Never Alcohol Use Standard Drinks/Week Comments Yes 0 (1 standard drink = 0.6 oz pur e alcohol) Sex and Gender Information Value Date Recorded Sex Assigned at Not on file Legal Sex Male 2:20 PM NETWORK DESIGN ARCHITECT Gender Identity Not on file Sexual Orientation [...] for an angiogram. Angiography done here at [facility] demonstrated a high-grade disease in theLAD proximally and in the midportion. It was a heavily calcified vessel. 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 He was referred to [facility] to see Dr. Silva. He underwent higher risk PCI involving stenting of the proximal into the mid LAD as well as COMMERCIAL REAL ESTATE ATTORNEY intervention of the RPDA. At the time of catheterization is left ventricular systolic function was normal. Following that intervention the patient developed a clinical picture of pericarditis was hospit alized a couple of times at [place]. He did have a small pericardial effusion with that. 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 He [...] 01/31/2024 documented in this encounter Care Teams Vocational Training Director Relationship Specialty Start Date End Date Ciaran Rizo MD PCP - General Family Practice 05/21/23 documented as of this encounter
--- OUTSIDE RECORDS SUMMARY | 2024-08-26 06:51 | XMS_ITS | Encounter Summary ---
Author Organization [facility] Medical Group Address [address] [facility] [address] [place] [address] Care Team Providers Care Metalizer Name Role Phone Nolberto Humphrey DO Primary Care Provider [phone] Encounter Details Date Type Department Care Team (Late st Contact Info) Description 12/19/2021 Orders Only [facility] Medical [facility] Cardiology [address] [place] [address] Colby Winters MD [address] [id number] Social History Tobacco Use Types Packs/Day Years Used Date Smoking Tobacco: Former Smokeless Tobacco: Never Alcohol Use Standard Drinks/Week Comments Yes 0 (1 standard drink = 0.6 oz pur e alcohol) Sex and Gender Information Value Date Recorded Sex Assigned at Not on file Legal Sex Male 2:20 PM CUSTOMER SUPPORT REPRESENTATIVE Gender Identity Not on file Sexual [...] on filedocumented in this encounter Care Teams Metalizer Relationship Specialty Start Date End Date Nolberto Humphrey DO PCP - General Internal Medicine 05/03/21 11/19/22 documented as of this encounter
--- OUTSIDE RECORDS SUMMARY | 2024-08-26 06:51 | XMS_ITS | Continuity of Care Document ---
Author Organization [facility] Address [address] [place] [address] [address] [facility] [address] [place] [address] Phone Care Team Providers Care Chick Grader Name Role Phone Demi Gonzalez Unavailable Unavailable Advance Directives Directive Yes / No Effective Date File Name No Information Encounters Encounter Description Practice Location Reason(s) For Visit Diagnoses Date Provider Providers Copied on Encounter [facility], [address], [place], [place], [id number], [place] tel:[phone] [facility] No Information [address] Lisa Simms. [address] [facility] , [address], [place], [address], [place]. tel:[phone] Family History Family Member Type Diagnosis Age At Onset No Information Payers Payer name Insurance type Covered libertarian ID Authoriza tion(s) [employer] SOI CI [id number] Social History Type Description Quantity Date Captured [...]
--- OUTSIDE RECORDS SUMMARY | 2024-08-26 06:51 | XMS_ITS | Encounter Summary ---
Author Organization [facility] Healthcare Address [address] [place] [address] Care Team Providers Care Food Safety Field Specialist Name Role Phone Ciaran Rizo MD Primary Care Provider [phone] Reason for Visit * Reason Comments Follow-up 6 mo f/u SVT * Consultation (Routine) - Authorized Specialty Diagnoses / Procedures Referred By Contac t Referred To Contact Cardiology Diagnoses History of coronary artery stent placement SVT (supraventricular tachycardia) (HCC) Ciaran Rizo MD Phone: tel: fax: Efren Sawyer MD [address] [facility] [address] [address] Phone: tel: fax: Referral ID Status Reason Start Date Expiration Date Visits Requested Visits Authorized [id number] Authorized Specialty Services Required 01/08/2024 01/07/2025 30 30 Encounter Details Date Type Department Care Team (Late st Contact Info) Description 05/28/2024 8:45 AM CDT Office Visit [facility] Medical Group Cardiology [address] [facility] [address] [address] Efren Sawyer MD [address] [facility] [address] [address] History of coronary artery stent placement; SVT (supraventricular tachycardia) (HCC) Social History Tobacco Use Types Packs/Day Years Used Date Smoking Tobacco: Former Smokeless Tobacco: Never Alcohol Use Standard Drinks/Week Comments Yes 0 (1 standard drink = 0.6 oz pur e alcohol) Sex and Gender Information Value Date Recorded Sex Assigned at Not on file Legal Sex Male 2:20 PM LEATHER PARTS MATCHER Gender Identity Not on file Sexual Orientation [...] for an angiogram. Angiography done here at [facility] demonstrated a high-grade disease in theLAD proximally and in the midportion. It was a heavily calcified vessel. 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 He was referred to [facility] to see Dr. Silva. He underwent higher risk PCI involving stenting of the proximal into the mid LAD as well as SUPERVISOR AIRCRAFT MAINTENANCE intervention of the RPDA. At the time of catheterization is left ventricular systolic function was normal. Following that intervention the patient developed a clinical picture of pericarditis was hospit alized a couple of times at [place]. He did have a small pericardial effusion with that. 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 He [...] 05/28/2024 documented in this encounter Care Teams Food Safety Field Specialist Relationship Specialty Start Date End Date Ciaran Rizo MD PCP - General Family Practice 05/21/23 documented as of this encounter
--- OUTSIDE RECORDS SUMMARY | 2024-08-26 06:51 | XMS_ITS | Encounter Summary ---
Author Organization [facility] Medical Group Address [address] [facility] [address] [place] [address] Care Team Providers Care Manager Of Internal Name Role Phone Nolberto Humphrey DO Primary Care Provider [phone] Encounter Details Date Type Department Care Team (Late st Contact Info) Description 12/21/2021 Orders Only [facility] Medical [facility] Cardiology [address] [place] [address] Colby Winters MD [address] [id number] Social History Tobacco Use Types Packs/Day Years Used Date Smoking Tobacco: Former Smokeless Tobacco: Never Alcohol Use Standard Drinks/Week Comments Yes 0 (1 standard drink = 0.6 oz pur e alcohol) Sex and Gender Information Value Date Recorded Sex Assigned at Not on file Legal Sex Male 2:20 PM BRANCH MAKER Gender Identity Not on file Sexual [...] on filedocumented in this encounter Care Teams Manager Of Internal Relationship Specialty Start Date End Date Nolberto Humphrey DO PCP - General Internal Medicine 05/03/21 11/19/22 documented as of this encounter
--- OUTSIDE RECORDS SUMMARY | 2024-08-26 06:51 | XMS_ITS | Encounter Summary ---
Author Organization [facility] Medical Group Address [address] [facility] [address] [place] [address] Care Team Providers Care Drafter Topographical Name Role Phone Nolberto Humphrey DO Primary Care Provider [phone] Encounter Details Date Type Department Care Team (Late st Contact Info) Description 11/10/2021 Orders Only [facility] Medical Group Cardiology [address] [place] [address] Colby Winters MD [address] [id number] Social History Tobacco Use Types Packs/Day Years Used Date Smoking Tobacco: Former Smokeless Tobacco: Never Alcohol Use Standard Drinks/Week Comments Yes 0 (1 standard drink = 0.6 oz pur e alcohol) Sex and Gender Information Value Date Recorded Sex Assigned at Not on file Legal Sex Male 2:20 PM CLINICAL PHARMACY COORDINATOR Gender Identity Not on file Sexual Orientation [...] on filedocumented in this encounter Care Teams Drafter Topographical Relationship Specialty Start Date End Date Nolberto Humphrey DO PCP - General Internal Medicine 05/03/21 11/19/22 documented as of this encounter
--- OUTSIDE RECORDS SUMMARY | 2024-08-26 06:51 | XMS_ITS | Encounter Summary ---
Author Organization [facility] Address [address] [place] [address] Care Team Providers Care Service Specialist Name Role Phone Nolberto Humphrey DO Primary Care Provider [phone] Encounter Details Date Type Department Care Team (Late st Contact Info) Description 07/24/2021 11:15 AM TILTING HEAD BAND SAWYER Office Visit [facility] Cardiology [address] [place] [address] Visit for wound check Social History Tobacco Use Types Packs/Day Years Used Date Smoking Tobacco: Former Smokeless Tobacco: Never Alcohol Use Standard Drinks/Week Comments Yes 0 (1 standard drink = 0.6 oz pur e alcohol) Sex and Gender Information Value Date Recorded Sex Assigned at Not on file Legal Sex Male 2:20 PM TILTING HEAD BAND SAWYER Gender Identity Not on file Sexual Orientation [...] increasesin size or discomfort. Pt verbalized understanding. ING HEAD BAND SAWYER documented in this encounter Plan of Treatment Not on file documented as of this encounter Visit Diagnoses Diagnosis Visit for wound check documented in this encounter Care Teams Service Specialist Relationship Specialty Start Date End Date Nolberto Humphrey DO PCP - General Internal Medicine 05/03/21 11/19/22 documented as of this encounter
--- OUTSIDE RECORDS SUMMARY | 2024-08-26 06:51 | XMS_ITS | Encounter Summary ---
Author Organization [facility] Address [address] [place] [address] Care Team Providers Care Non Destructive Testing Inspector Name Role Phone Nolberto Humphrey DO Primary Care Provider [phone] Encounter Details Date Type Department Care Team (Late st Contact Info) Description 09/18/2021 Telephone Arrhythmia Center [address] [place] [address] Roe Nguyen III, MD [address] [address] Social History Tobacco Use Types Packs/Day Years Used Date Smoking Tobacco: Former Smokeless Tobacco: Never Alcohol Use Standard Drinks/Week Comments Yes 0 (1 standard drink = 0.6 oz pur e alcohol) Sex and Gender Information Value Date Recorded Sex Assigned at Not on file Legal Sex Male 2:20 PM HEARING INSTRUMENT SPECIALIST Gender Identity Not on file Sexual Orientation Straight 07/05/2021 1: 06 PM CDT documented as of this encounter Miscellaneous Notes * Telephone Encounter - Roe Nguyen III, MD - 09/18/2021 4:42 PM HEARING INSTRUMENT SPECIALIST [place]. To be clear he has never had an ablation before. I'm not sure what he's talking about. ING INSTRUMENT SPECIALIST * Telephone Encounter - Dolores Ulrich - 09/18/2021 10:18 AM CST Patient called and canceled his ablation and ILR implant. He said he does not want to have another ablation at this time. He will call if he changes his mind or has questions. I offered him an followup appointment with Dr. Nguyen to discuss any concerns but patient declined at this time. ING INSTRUMENT SPECIALIST documented in this encounter Plan of Treatment Not on file documented as of this encounter Visit Diagnoses Not on filedocumented in this encounter Care Teams Non Destructive Testing Inspector Relationship Specialty Start Date End Date Nolberto Humphrey DO PCP - General Internal Medicine 05/03/21 11/19/22 documented as of this encounter
--- OUTSIDE RECORDS SUMMARY | 2024-08-26 06:51 | XMS_ITS | Encounter Summary ---
Author Organization [facility] Address [address] [place] [address] Care Team Providers Care Tip Mender Name Role Phone Nolberto Humphrey DO Primary Care Provider Reason for Visit * Reason Comments SVT Encounter Details Date Type Department Care Team (Late st Contact Info) Description 09/12/2021 1:15 PM APARTMENT COORDINATOR Office Visit Arrhythmia Center [address] [place] [address] Roe Nguyen III, MD [address] [facility] [address], [place] [address] SVT (supraventricular tachycardia) (CMS/HCC) (HCC) (Primary Dx); Atrial fibrillation, unspecified type (HCC) Social History Tobacco Use Types Packs/Day Years Used Date Smoking Tobacco: Former Smokeless Tobacco: Never Alcohol Use Standard Drinks/Week Comments Yes 0 (1 standard drink = 0.6 oz pur e alcohol) Sex and Gender Information Value Date Recorded Sex Assigned at Not on file Legal Sex Male 2:20 PM APARTMENT COORDINATOR Gender Identity Not on file Sexual Orientation Straight 07/05/2021 1 :06 PM CDT documented as of this encounter Last Filed Vital Signs Vital Sign Reading Time Taken Comments Blood Pressure 130/76 09/12/2021 12:47 PM APARTMENT COORDINATOR Pulse 65 09/12/2021 12:47 PM APARTMENT COORDINATOR Temperature - - Respiratory Rate 16 09/12/2021 12:47 PM APARTMENT COORDINATOR Oxygen Saturation - - Inhaled Oxygen Concentration - - Weight 103 kg (227 lb) 09/12/2021 12:47 PM APARTMENT COORDINATOR Height 182.9 cm (6') 09/12/2021 12:47 PM APARTMENT COORDINATOR Body Mass Index 30.79 09/12/2021 12:47 PM APARTMENT COORDINATOR documented in this encounter Progress Notes * Roe Nguyen III, MD - 09/12/2021 1:15 PM CST Images from the original note were not included. Established Patient Note- [facility] Arrhythmia Center [facility] Arrhythmia Center [address] [place] [address], [address] [place] [address] This note was dictated with voice-recognition software, and weighmaster lead errors may be present. Subjective/Objective Patient ID: Olaf Croft is a 75 y.o. male Chief Complaint SVT I had the pleasure of seeing lOaf Croft in consultation at [facility] Arrhythmia Center at [facility] for follow-up of SVT . As you know, he is a 75 y.o. male with the following arrhythmia-specific history: ??? Supraventricular tachycardia. Documented while hospitalized after PCI 07/2021 ??? Atrial fibrillation, paroxysmal. Noted while hospitalized, along with SVT, after PCI 07/2021. ??? Coronary artery disease. o S/p PCI to PDA (CATTLE SPRAYER), LAD, RPVB (all CESAR) 07/11/21 ??? Relevant [...] LABS) Nasal; Future Atrial fibrillation, unspecified type ([facility]) Assessment & Plan: Infrequent AF episodes seen on ambulatory monitoring and in hospital. [place] unclear, but appears to be overestimated by ambulatory monitor (confused with SVT). Suspect AF may be triggered primarily by SVT. Would recommend starting with SVT ablation and implantation of an ILR for AF surveillance. If symptomatic AF returns, AF ablation or antiarrhythmic drugscan be considered. [id number] = 3. Anticoagulation is reasonable for now, and decisions regarding need for long- term anticoagulation can be guided by ILR surveillance data. --Continue apixaban 5 mg PO BID. Hold starting 2 days prior to EPS/SVT ablation. --ILR implantation at time of SVT ablation. --ILR data to guide need for fci anticoagulation. F/u after procedure It was my pleasure to see Olaf Croft today in the office. Please do not hesitate to contact me with any questions or concerns regarding care. Sincerely, Roe Nguyen III, M.D. Cardiac Electrophysiology [facility] Arrhythmia Center [facility] TMENT COORDINATOR documented in this encounter Miscellaneous Notes * Assessment & Plan Note - Roe Nguyen III, MD - 09/12/2021 4:26 PM CSTAssociated Problem(s): Atrial fibrillation (CMS/HCC) (HCC) (Resolved 01/04/2022) Infrequent AF episodes seen on ambulatory monitoring and in hospital. [place] unclear, but appears to be overestimated by ambulatory monitor (confused with SVT). Suspect AF may be triggered primarily by SVT. Would recommend starting with SVT ablation and implantation of an ILR for AF surveillance. If symptomatic AF returns, AF ablation or antiarrhythmic drugscan be considered. [id number] = 3. Anticoagulation is reasonable for now, and decisions regarding need for long- term anticoagulation can be guided by ILR surveillance data. --Continue apixaban 5 mg PO BID. Hold starting 2 days prior to EPS/SVT ablation. --ILR implantation at time of SVT ablation. --ILR data to guide need for machine long goods helper anticoagulation. TMENT COORDINATOR TMENT COORDINATOR * Assessment & Plan Note - Roe Nguyen III, MD - 09/12/2021 4:25 PM CSTAssociated Problem(s): SVT (supraventricular tachycardia) ([facility]) Recurrent, symptomatic, drug-refractory SVT. Possibly triggering AF. [...] metoprolol for 5 days prior to procedure. TMENT COORDINATOR TMENT COORDINATOR documented in this encounter Plan of Treatment Scheduled Orders Name Type Priority Associated Diagnoses Orde r Schedule Basic metabolic panel Lab Routine SVT (supraventricular tachycardia) ([facility]/HCC) ([facility]) Expected: 09/12/2021, Expires: 09/12/2022 CBC with auto differential Lab Routine SVT (supraventricular tachycardia) ([facility]/HCC) ([facility]) Expected: 09/12/2021, Expires: 09/12/2022 COVID-19 CORONAVIRUS RNA (OUTSIDE LABS) Nasal Microbiology Routine SVT (supraventricular tachycardia) ([facility]/HCC) ([facility]) Expected: 10/28/2021, Expires: 09/12/2022 documented as of this encounter Procedures Procedure Name Priority Date/Time Associated Diagnosis Comments ECG 12-LEAD Routine 09/12/2021 SVT (supraventricular tachycardia) ([facility]/HCC) ([facility]) documented in this encounter Results * ECG 12 lead (09/12/2021) Roe Nguyen III, MD ECG ORDERABLES Fin al Result documented in this encounter Visit Diagnoses Diagnosis SVT (supraventricular tachycardia) ([facility])- Primary Other specified cardiac dysrhythmias Atrial fibrillation, unspecified type (HCC) documented in this encounter Discontinued Medications Medication Sig Discontinue Reason Start Date End Da te gabapentin (NEURONTIN) 100 mg capsule Take 200 mg by mouth daily Discontinued by another clinician 09/12/2021 documented as of this encounter Care Teams Tip Mender Relationship Specialty Start Date End Date Nolberto Humphrey DO PCP - General Internal Medicine 05/03/21 11/19/22 documented as of this encounter
--- OUTSIDE RECORDS SUMMARY | 2024-08-26 06:51 | XMS_ITS | Encounter Summary ---
Author Organization [facility] Address [address] [place] [address] Care Team Providers Care Facsimile Operator Name Role Phone Nolberto Humphrey DO Primary Care Provider [phone] Encounter Details Date Type Department Care Team (Late st Contact Info) Description 12/22/2021 Orders Only [facility] Cardiology [address] [place] [address] Colby Winters MD [address] [id number] Social History Tobacco Use Types Packs/Day Years Used Date Smoking Tobacco: Former Smokeless Tobacco: Never Alcohol Use Standard Drinks/Week Comments Yes 0 (1 standard drink = 0.6 oz pur e alcohol) Sex and Gender Information Value Date Recorded Sex Assigned at Not on file 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 Gender Identity Not on file Sexual Orientation Straight 07/05/2021 1: 06 PM CDT documented as of this encounter Plan of Treatment Not on file documented as of this encounter Procedures Procedure Name Priority Date/Time Associated Diagnosis Comments CARDIOLOGY DOCUMENT SCAN Routine 12/22/2021 documented in this encounter Results * Cardiology Document Scan (12/22/2021) Anatomical Region Laterality Modality Other Gwen Allan NP CV CARDIAC SERVICES PROCEDUR ES Final Result documented in this encounter Visit Diagnoses Not on filedocumented in this encounter Care Teams Facsimile Operator Relationship Specialty Start Date End Date Nolberto Humphrey DO PCP - General Internal Medicine 05/03/21 11/19/22 documented as of this encounter
--- OUTSIDE RECORDS SUMMARY | 2024-08-26 06:51 | XMS_ITS | Encounter Summary ---
Author Organization [facility] Healthcare Address [address] [place] [address] Care Team Providers Care Tile Finisher Name Role Phone Nolberto Humphrey DO Primary Care Provider [phone] Reason for Visit * Reason Onset Date Comments Cardiac Rehab Navigator Initial f/u call 021 Encounter Details Date Type Department Care Team (Late st Contact Info) Description 07/25/2021 Telephone [facility] Case Management [facility] [place] [address] Star Vaz EP-C Cardiac Rehab Navigator Initial f/u call Social History Tobacco Use Types Packs/Day Years Used Date Smoking Tobacco: Former Smokeless Tobacco: Never Alcohol Use Standard Drinks/Week Comments Yes 0 (1 standard drink = 0.6 oz pur e alcohol) Sex and Gender Information Value Date Recorded Sex Assigned at Not on file Legal Sex Male 2:20 PM SCALE INSTALLER Gender Identity Not on file Sexual Orientation Straight 07/05/2021 1: 06 PM CDT documented as of this encounter Miscellaneous Notes * Telephone Encounter - Star Vaz EP-C - 07/25/2021 3:22 PM SCALE INSTALLER Pt returned my call regarding f/u questions Initial Follow-up Call Questions ?? Medications: Pt reports taking all medication as prescribed. Asked specifically about blood thinners (plavix + eliquis) and cholesterol/statin medication. Pt denies any current questions about medications. ?? Cardiac Rehab Facility: Pt states that he has been in contact with the [facility] cardiac rehab. He states that theyare looking [...] safely improve exercise tolerance. Educatedpt on the [place] [employer] recommendation of working towards 150+ [...] when it would be appropriate to call Cook Chef's office, go to the ER, or call 911. ?? Cook Chef Follow-up Appointment: Pt does not have an appointment scheduled with Dr. Sawyer yet. He plans to schedule one soon. ?? Readmission: Pt reports they have not been readmitted to a hospital since being discharged from [facility]. Will plan to make 30-day f/u call with pt. E INSTALLER * Telephone Encounter - Star Vaz EP-C - 07/25/2021 3:07 PM SCALE INSTALLER Called pt to ask Cardiac Rehab Navigator Initial f/u questions. Pt's (Irasema) answered, and stated that pt was not available. She offered to take my number for pt to return call when he is available. Provided Irasema my office number, name and department. Call attempt x 1. Will plan to call again at a later date if pt does not return call. E INSTALLER documented in this encounter Plan of Treatment Not on file documented as of this encounter Visit Diagnoses Not on filedocumented in this encounter Care Teams Tile Finisher Relationship Specialty Start Date End Date Nolberto Humphrey DO PCP - General Internal Medicine 05/03/21 11/19/22 documented as of this encounter
--- OUTSIDE RECORDS SUMMARY | 2024-08-26 06:51 | XMS_ITS | Encounter Summary ---
Author Organization [facility] Address [address] [place] [address] Care Team Providers Care Title Curator Name Role Phone Nolberto Humphrey DO Primary Care Provider Reason for Visit * Reason Comments Follow-up 2 mo f/u Atrial Fibrillation Encounter Details Date Type Department Care Team (Late st Contact Info) Description 03/07/2022 1:00 PM CDT Office Visit [facility] Cardiology at [address] [place] [address] Efren Sawyer MD [address] [facility] [address] [place] [address] SVT (supraventricular tachycardia) (CMS/HCC) (HCC) [...] file Legal Sex Male 2:20 PM IT RISK ADVISOR Gender Identity Not on file Sexual Orientation [...] for an angiogram. Angiography done here at [facility] demonstrated a high-grade disease in theLAD proximally and in the midportion. It was a heavily calcified vessel. 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 He was referred to [facility] to see Dr. Silva. He underwent higher risk PCI involving stenting of the proximal into the mid LAD as well as PROCESS ENVIRONMENTAL TECHNICIAN intervention of the RPDA. At the time of catheterization is left ventricular systolic function was normal. Following that intervention the patient developed a clinical picture of pericarditis was hospit alized a couple of times at [place]. He did have a small pericardial effusion with that. He did have some tachy arrhythmias during that hospitalization which were initially interpreted as atrial fibrillation but I taught claims representative pre episodes of SVT. He did [...] 02/13/2022 added in this encounter Care Teams Title Curator Relationship Specialty Start Date End Date Nolberto Humphrey DO PCP - General Internal Medicine 05/03/21 11/19/22 documented as of this encounter
--- OUTSIDE RECORDS SUMMARY | 2024-08-26 06:51 | XMS_ITS | Encounter Summary ---
Author Organization [facility] Address [address] [place] [address] Care Team Providers Care Help Desk Technician Name Role Phone Nolberto Humphrey DO Primary Care Provider [phone] Encounter Details Date Type Department Care Team (Late st Contact Info) Description 12/19/2021 Orders Only [facility] Cardiology [address] [place] [address] Colby Winters MD [address] [id number] Social History Tobacco Use Types Packs/Day Years Used Date Smoking Tobacco: Former Smokeless Tobacco: Never Alcohol Use Standard Drinks/Week Comments Yes 0 (1 standard drink = 0.6 oz pur e alcohol) Sex and Gender Information Value Date Recorded Sex Assigned at Not on file Legal Sex Male 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
--- OUTSIDE RECORDS SUMMARY | 2024-08-26 06:51 | XMS_ITS | Encounter Summary ---
Author Organization [facility] Address [address] [place] [address] Care Team Providers Care Manager Publishing Name Role Phone Ciaran Rizo MD Primary Care Provider [phone] Reason for Referral * Cardiology (Routine) - Closed Specialty Diagnoses / Procedures Referred By Contac t Referred To Contact Diagnoses History of coronary artery stent placement Other forms of angina pectoris (HCC) Procedures Stress Echo Exercise W Doppler/CF Efren Sawyer MD [address] [address] Phone: tel: fax: [facility] Medical [facility] Referral ID Status Reason Start Date Expiration Date Visits Re quested Visits Authorized [id number] Closed 05/21/2023 06/19/2024 1 1 Reason for Visit * Reason Comments Follow-up 6 mo f/u. Numbness i n feet that started 3 months ago. Coronary Artery Disease Atrial Fibrillation Chest Pain C/o chest tightness x 2 weeks * Consultation (Routine) - Closed Specialty Diagnoses / Procedures Referred By Contac t Referred To Contact Cardiology Diagnoses SVT (supraventricular tachycardia) (HCC) Atherosclerotic heart disease of koi coronary artery with other forms of angina pectoris (HCC) Leatha Silvestre MD Phone: tel: fax: [facility] Medical [facility] Cardiology [address] [place] [address] Phone: tel: fax: Referral ID Status Reason Start Date Expiration Date V isits Requested Visits Authorized [id number] Closed Specialty Services Required 11/20/2022 05/23/2023 6 6 Encounter Details Date Type Department Care Team (Late st Contact Info) Description 05/21/2023 10:00 AM CDT Office Visit [facility] Cardiology [address] [place] [address] Efren Sawyer MD [address] [place] [address] SVT (supraventricular tachycardia) (CMS/HCC) (HCC) (Primary Dx); [...] on file Legal Sex Male 2:20 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 Angiography done here at [facility] demonstrated a high-grade disease in theLAD proximally and in the midportion. It was a heavily calcified vessel. 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 He was referred to [place] to [facility] to see Dr. Silva. He underwent higher risk PCI involving stenting of the proximal into the mid LAD as well as SUPERVISOR CELL ROOM intervention of the RPDA. At the time of catheterization is left ventricular systolic function was normal. Following that intervention the patient developed a clinical picture of pericarditis was hospit alized a couple of times at [place]. He did have a small pericardial effusion with that. He did have some tachy arrhythmias during that hospitalization which were initially interpreted as atrial fibrillation but I taught business development representative pre episodes of SVT. He did [...] AM CDT Narrative 05/28/2023 5:10 PM CDT [facility] Cardiology [address], [place] [address] [address], [place] [address] P:[phone] P:[phone] Echocardiographic Report Patient Name: OLAF NEWELL JO : 1945 Study Date: 05/28/2023 11:43:07 AM Gender: M Tech: LUCILLE Location: [place] Ref.Provider: EFREN SAWYER Height(Cm): 183 BSA: 2.42 [...] BP - 180/64. Rate Pressure Product - 35971. METS Achieved - 7.00. Percent Predicted Maximal HR Achieved - 99 %. Interpretation Site: Exam was interpreted at [facility]. Performance: Average exercise functional capacity. Hemodynamic Response: [...] BP - 180/64. Rate Pressure Product - 84042. METS Achieved - 7.00. Percent Predicted Maximal [...] %. Electronically Signed By: Efren Sawyer MD, [facility] 2023-05-28 17:10:05 CDT CC: CC: Procedure Note Efren Sawyer MD - 05/28/2023 [facility] Cardiology [address] [facility] [address], [place] [address] [address] [facility] [address] [address], [place] [address] P:[phone] P:[phone] Echocardiographic Report Patient Name: OLAF NEWELL JOPatient ID: [id number] : [id number] Date: 05/28/2023 11:43:07 AM Gender: MAccession #: [id number] Tech: Location: [place] Ref.Provider: Yossi SAWYER(Cm): 183 BSA: 2.42Weight(Kg): 114.8 [...] BP - 180/64. Rate Pressure Product - 62079. METS Achieved - 7.00.Percent Predicted Maximal HR Achieved - 99 %. Interpretation Site: Exam was interpreted at [facility]. Performance: Average exercise functional capacity. Hemodynamic Response: [...] BP - 180/64. Rate Pressure Product - 87365. METS Achieved - 7.00.Percent Predicted Maximal HR [...] %. Electronically Signed By: Efren Sawyer MD, [facility] 2023-05-28 17:10:05 CDT CC: CC: Efren Sawyer [...] (HCC) documented in this encounter Care Teams Manager Publishing Relationship Specialty Start Date End Date Ciaran Rizo MD PCP - General Family Practice 05/21/23 documented as of this encounter
--- OUTSIDE RECORDS SUMMARY | 2024-08-26 06:51 | XMS_ITS | Encounter Summary ---
Author Organization [facility] Address [address] [place] [address] Care Team Providers Care Product Examiner Name Role Phone Nolberto Humphrey DO Primary Care Provider [phone] Encounter Details Date Type Department Care Team (Late st Contact Info) Description 04/27/2022 Telephone [facility] Cardiology [address] [place] [address] Efren Sawyer MD [address] [place], [place] [id number] Social History Tobacco Use Types Packs/Day Years Used Date Smoking Tobacco: Former Smokeless Tobacco: Never Alcohol Use Standard Drinks/Week Comments Yes 0 (1 standard drink = 0.6 oz pur e alcohol) Sex and Gender Information Value Date Recorded Sex Assigned at Not on file Legal Sex Male 2:20 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
--- OUTSIDE RECORDS SUMMARY | 2024-08-26 06:52 | XMS_ITS | Encounter Summary ---
Author Organization [facility] Address [address] [place] [address] Phone Care Team Providers Care Biophysics Teacher Name Role Phone Olaf Carvajal MD Primary Care Provider [phone] [phone] Reason for Visit * Reason Onset Date Comments Appointment 12/29/2019 Encounter Details Date Type Department Care Team (Late st Contact Info) Description 12/29/2019 Telephone [facility] Neuro Sleep [address] [facility] 6th Floor [address] [place] [address] Idalmis Au, RN Appointment Social History Tobacco Use Types Packs/Day Years Used Date Smoking Tobacco: Former Smokeless Tobacco: Never Alcohol Use Standard Drinks/Week Comments Yes 0 (1 standard drink = 0.6 oz pur e alcohol) Sex and Gender Information Value Date Recorded Sex Assigned at Not on file 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
--- OUTSIDE RECORDS SUMMARY | 2024-08-26 06:52 | XMS_ITS | Encounter Summary ---
Author Organization [facility] Address [address] [place] [address] Phone Care Team Providers Care Grass Farmer Name Role Phone Olaf Carvajal MD Primary Care Provider [phone] [phone] Encounter Details Date Type Department Care Team (Late st Contact Info) Description 03/05/2018 Telephone [facility] Neuro Sleep [address] [facility] 6th Floor [address] [place] [address] Cindy Churchill RMA Social History Tobacco Use Types Packs/Day Years Used Date Smoking Tobacco: Former Smokeless Tobacco: Never Alcohol Use Standard Drinks/Week Comments Yes 0 (1 standard drink = 0.6 oz pur e alcohol) Sex and Gender Information Value Date Recorded Sex Assigned at Not on file Legal Sex Male 2:20 PM BASS VIOL REPAIRER Gender Identity Not on file Sexual Orientation [...] on filedocumented in this encounter Care Teams Grass Farmer Relationship Specialty Start Date End Date Olaf Carvajal MD [address] [place] [address] PCP - General 11/03/12 05/02/21 documented as of this encounter
--- OUTSIDE RECORDS SUMMARY | 2024-08-26 06:52 | XMS_ITS | Encounter Summary ---
Author Organization [facility] Address [address] [place] [address] Phone Care Team Providers Care Instrument Maker Apprentice Name Role Phone Olaf Carvajal MD Primary Care Provider [phone] [phone] Reason for Visit * Reason Comments Sleep Apnea Restless Legs * Neurology (Routine) - Closed Specialty Diagnoses / Procedures Referred By Jonna chance Referred To Contact Neurology Diagnoses ABSTRACTED Appt Comment: 6-8 MONTH FU Procedures RETURN Olaf Carvajal MD Phone: tel: fax: Светлана Castillo MD PhD [address] [place] [address] Phone: tel: fax: Referral ID Status Reason Start Date Expiration Date Visits Re quested Visits Authorized [id number] Closed 02/24/2018 09/05/2019 1 1 Encounter Details Date Type Department Care Team (Late st Contact Info) Description 02/24/2018 2:00 PM CDT Office Visit [facility] Neuro Sleep [address] [facility] 6th Floor [address] [place] [address] Светлана Castillo MD PhD [address] [place] [address] Obstructive sleep apnea syndrome (Primary Dx); Periodic [...] on file Legal Sex Male 2:20 PM RESIDENCE LEASING AGENT Gender Identity Not on file Sexual Orientation [...] 02/24/2018 2:00 PM CDT Patient Name: OLAF NEEWLL Medical Record Number (MRN): [id number] Date of (): 1945 Encounter Date: 02/24/2018 [...] to fall asleep. Rise time 7:00 a.m.. 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 Rod Straightener of Neurology Diplomate, [place] Board of Psychiatry and Neurology with added [...] ?Site ID: [id number] ?Name: [facility] ?Address: [id number] [address] ?Director: Luis Alberto Schuler D.O., MPH us [...] documented as of this encounter Care Teams Instrument Maker Apprentice Relationship Specialty Start Date End Date Olaf Carvajal MD [address] [place] [address] PCP - General 11/03/12 05/02/21 documented as of this encounter
--- OUTSIDE RECORDS SUMMARY | 2024-08-26 06:52 | XMS_ITS | Encounter Summary ---
Author Organization [facility] Address [address] [facility] [address] [place] [address] Care Team Providers Care Copy Worker Name Role Phone Nolberto Humphrey DO Primary Care Provider [phone] Encounter Details Date Type Department Care Team (Late st Contact Info) Description 05/03/2021 Orders Only [facility] Cardiology [address] [facility] [address] [place] [address] Provider, MD Corey [address] [place] [address] Social History Tobacco Use Types Packs/Day Years Used Date Smoking Tobacco: Former Smokeless Tobacco: Never Alcohol Use Standard Drinks/Week Comments Yes 0 (1 standard drink = 0.6 oz pur e alcohol) Sex and Gender Information Value Date Recorded Sex Assigned at Not on file 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
--- OUTSIDE RECORDS SUMMARY | 2024-08-26 06:52 | XMS_ITS | Encounter Summary ---
Author Organization [facility] Address [address] [place] [address] Phone Care Team Providers Care Estate Manager Name Role Phone Olaf Carvajal MD Primary Care Provider [phone] [phone] Reason for Visit * Reason Onset Date Comments [facility] approval 03/06/2018 Encounter Details Date Type Department Care Team (Late st Contact Info) Description 03/06/2018 Documentation [facility] Neuro Sleep [address] [facility] 6th Floor [address] [place] [address] Idalmis Au RN [facility] approval Social History Tobacco Use Types Packs/Day Years Used Date Smoking Tobacco: Former Smokeless Tobacco: Never Alcohol Use Standard Drinks/Week Comments Yes 0 (1 standard drink = 0.6 oz pur e alcohol) Sex and Gender Information Value Date Recorded Sex Assigned at Not on file Legal Sex Male 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 documented in this encounter Plan of Treatment Not on file documented as of this encounter Visit Diagnoses Not on filedocumented in this encounter Care Teams Estate Manager Relationship Specialty Start Date End Date Olaf Carvajal MD [address] [place] [address] PCP - General 11/03/12 05/02/21 documented as of this encounter
--- OUTSIDE RECORDS SUMMARY | 2024-08-26 06:52 | XMS_ITS | Encounter Summary ---
Author Organization [facility] Address [address] [place] [address] Phone Care Team Providers Care Cafe Attendant Name Role Phone Olaf Carvajal MD Primary Care Provider [phone] Nolberto Humphrey DO Primary Care Provider [phone] Leatha Silvestre MD Primary Care Provider [phone] Ciaran Rizo MD Primary Care Provider [phone] Reason for Visit * Reason Onset Date Comments Follow-up 10/27/2019 Sent patient fol low up appointments with Wilmer Patton NP for compliance 2-3 mths for 01/04/2020 @ 2:30pm and [address] Светлана Castillo on 07/25/2020 @ 3:30 pm Encounter Details Date Type Department Care Team (Late st Contact Info) Description 10/27/2019 Documentation [facility] Neuro Sleep [address] [place] [address] 6th Floor [address] [place] [address] Allegra Wild Follow-up (Sent patient follow up appointments with [...] file 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 Gender Identity Not on file Sexual Orientation Straight 07/05/2021 1: 06 PM CDT documented as of this encounter Plan of Treatment Not on file documented as of this encounter Visit Diagnoses Not on filedocumented in this encounter Care Teams Cafe Attendant Relationship Specialty Start Date End Date Olaf Carvajal MD [address] [place] [address] PCP - General 11/03/12 05/02/21 Nolberto Humphrey DO [address] [place] [address] PCP - General Internal Medicine 05/03/21 11/19/22 Leatha Silvestre MD [address] [place] [address] PCP - General Internal Medicine 11/20/22 05/20/23 Ciaran Rizo MD [address] [place], [place] [id number] PCP - General Family Practice 05/21/23 documented as of this encounter
--- OUTSIDE RECORDS SUMMARY | 2024-08-26 06:52 | XMS_ITS | Encounter Summary ---
Author Organization [facility] Address [address] [place] [address] Phone Care Team Providers Care Golf Ball Cover Treater Name Role Phone Olaf Carvajal MD Primary Care Provider [phone] Reason for Referral * Consultation (Routine) - Closed Specialty Diagnoses / Procedures Referred By Contac t Referred To Contact Neurology Diagnoses Obstructive sleep apnea syndrome Светлана Castillo MD PhD [address] [place] [address] Phone: tel: fax: [facility] (All Locations) Referral ID Status Reason Start Date Expiration Date V isits Requested Visits Authorized [id number] Closed Specialty Services Required 10/14/2019 02/05/2020 3 3 Question Answer Please select the performing region: [facility] (All Locations) [167] # of visits: 1 B SERVICES AIDE Reason for Visit * Reason Comments Restless Legs Sleep Apnea * Consultation (Routine) - Closed Specialty Diagnoses / Procedures Referred By Contac t Referred To Contact Neurology Diagnoses Obstructive sleep apnea syndrome Светлана Castillo MD PhD [address] [place] [address] Phone: tel: fax: [facility] (All Locations) Referral ID Status Reason Start Date Expiration Date V isits Requested Visits Authorized [id number] Closed Specialty Services Required 10/14/2019 02/05/2020 3 3 Encounter Details Date Type Department Care Team (Late st Contact Info) Description 10/26/2019 3:30 PM REHAB SERVICES AIDE Office Visit [facility] Neuro Sleep [address] [facility] 6th Floor [address] [place] [address] Светлана Castillo MD PhD [address] [place] [address] Obstructive sleep apnea syndrome (Primary Dx); RLS (restless legs syndrome) Social History Tobacco Use Types Packs/Day Years Used Date Smoking Tobacco: Former Smokeless Tobacco: Never Alcohol Use Standard Drinks/Week Comments Yes 0 (1 standard drink = 0.6 oz pur e alcohol) Sex and Gender Information Value Date Recorded Sex Assigned at Not on file Legal Sex Male 2:20 PM REHAB SERVICES AIDE Gender Identity Not on file Sexual Orientation Straight 07/05/2021 1: 06 PM CDT documented as of this encounter Last Filed Vital Signs Vital Sign Reading Time Taken Comments Blood Pressure 157/84 10/26/2019 3:26 PM REHAB SERVICES AIDE Pulse 88 10/26/2019 3:26 PM REHAB SERVICES AIDE Temperature - - Respiratory Rate - - Oxygen Saturation 97% 10/26/2019 3:26 PM REHAB SERVICES AIDE Inhaled Oxygen Concentration - - Weight 108.6 kg (239 lb 5 oz) 10/26/2019 3:26 PM REHAB SERVICES AIDE Height 182.9 cm (6') 10/26/2019 3:26 PM REHAB SERVICES AIDE Body Mass Index 32.46 10/26/2019 3:26 PM REHAB SERVICES AIDE documented in this encounter Patient Instructions * Patient Instructions* Светлана Castillo MD PhD - 10/26/2019 3:30 PM REHAB SERVICES AIDE 1. After discussion, he will try stopping [...] beneficial. 6. Follow-up in 2-3 months with STUDENT LIAISON OFFICER for compliance and in 9 months with me. 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 6. Follow-up in 2-3 months with STUDENT LIAISON OFFICER for compliance and in 9 months with me. No follow-ups on file. I spent from 3:55 until 4:45 [id number] with the patient and more than half this time was spent in counseling and/or coordination of care as discussed above. Thank you for allowing me to participate in the care of your patient. If you have any questions, feel free to contact me. Sincerely, Светлана Castillo M.D., Ph.D. Clinical Research Management Associate of Neurology Diplomate, [place] Board of Psychiatry and Neurology with added Qualifications in Sleep Medicine B SERVICES AIDE documented in this encounter Plan of Treatment [...] 10/26/2019 documented in this encounter Care Teams Golf Ball Cover Treater Relationship Specialty Start Date End Date Olaf Carvajal MD [address] [place] [address] PCP - General 11/03/12 05/02/21 documented as of this encounter
--- OUTSIDE RECORDS SUMMARY | 2024-08-26 06:52 | XMS_ITS | Encounter Summary ---
Author Organization [facility] of [facility] Address [address] [place] [address] Phone Care Team Providers Care Database Administration Project Manager Name Role Phone lOaf Carvajal MD Primary Care Provider [phone] Reason for Visit * Reason Comments Sleep Apnea * Neurology (Routine) - Closed Specialty Diagnoses / Procedures Referred By Jonna chance Referred To Contact Neurology Diagnoses 7MO PAP F/U Procedures RETURN Olaf Carvajal MD Phone: tel: fax: Светлана Castillo MD PhD [address] [place] [address] Phone: tel: fax: Referral ID Status Reason Start Date Expiration Date Visits Re quested Visits Authorized [id number] Closed 09/25/2018 11/24/2018 3 3 Encounter Details Date Type Department Care Team (Latest Contact Info) Description 10/06/2018 3:30 PM MANAGER NEWS Office Visit [facility] Neuro Sleep [address] [facility] 6th Floor [address] [place] [address] Светлана Castillo MD PhD [address] [place] [address] RLS (restless legs syndrome) (Primary [...] file Legal Sex Male 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 NEWS Gender Identity Not on file Sexual Orientation Straight 07/05/2021 1: 06 PM CDT documented as of this encounter Last Filed Vital Signs Vital Sign Reading Time Taken Comments Blood Pressure 151/86 10/06/2018 3:47 PM MANAGER NEWS Pulse 94 10/06/2018 3:47 PM MANAGER NEWS Temperature - - Respiratory Rate - - Oxygen Saturation 95% 10/06/2018 3:47 PM MANAGER NEWS Inhaled Oxygen Concentration - - Weight 111.6 kg (246 lb) 10/06/2018 3:47 PM MANAGER NEWS Height 182.9 cm (6' 0.01 ) 10/06/2018 3:47 PM CS T Body Mass Index 33.36 10/06/2018 3:47 PM MANAGER NEWS documented in this encounter Progress Notes * Светлана Castillo MD PhD - 10/06/2018 3:30 PM CST Patient Name: OLAF NEWELL Medical Record Number (MRN): [id number] Date of (): 1945 Encounter Date: 10/06/2018 [...] to fall asleep. Rise time 6:00 a.m.. 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 After discussion, however, we will try some [...] contact me. Sincerely, Светлана Castillo M.D., Ph.D. Rivet Flunky of Neurology Diplomate, [place] Board of Psychiatry and Neurology with added Qualifications in Sleep Medicine GER NEWS documented in this encounter Plan of Treatment [...] documented as of this encounter Care Teams Database Administration Project Manager Relationship Specialty Start Date End Date Olaf Carvajal MD [address] [place] [address] PCP - General 11/03/12 05/02/21 documented as of this encounter
--- OUTSIDE RECORDS SUMMARY | 2024-08-26 06:52 | XMS_ITS | Encounter Summary ---
Author Organization [facility] Address [address] [place] [address] Phone Care Team Providers Care Mexican Food Cook Name Role Phone Olaf Carvajal MD Primary Care Provider [phone] [phone] Reason for Visit * Reason Onset Date Comments Horizant PA 03/04/2018 Encounter Details Date Type Department Care Team (Late st Contact Info) Description 03/04/2018 Documentation [facility] Neuro Sleep [address] [facility] 6th Floor [address] [place] [address] Idalmis Au RN Horizant PA Social History Tobacco Use Types Packs/Day Years Used Date Smoking Tobacco: Former Smokeless Tobacco: Never Alcohol Use Standard Drinks/Week Comments Yes 0 (1 standard drink = 0.6 oz pur e alcohol) Sex and Gender Information Value Date Recorded Sex Assigned at Not on file Legal Sex Male 2:20 PM AUTOCAD Gender Identity Not on file Sexual Orientation Straight 07/05/2021 1: 06 PM CDT documented as of this encounter Progress Notes * Idalmis Au RN - 03/04/2018 3:32 PM CDT Initiated PA for Horizant 300 mg through [employer]. documented in this encounter Plan of Treatment Not on file documented as of this encounter Visit Diagnoses Not on filedocumented in this encounter Care Teams Mexican Food Cook Relationship Specialty Start Date End Date Olaf Carvajal MD [address] [place] [address] PCP - General 11/03/12 05/02/21 documented as of this encounter
--- OUTSIDE RECORDS SUMMARY | 2024-08-26 06:52 | XMS_ITS | Encounter Summary ---
Author Organization [facility] Address [address] [place] [address] Phone Care Team Providers Care Crusher Plant Operator Name Role Phone Olaf Carvajal MD Primary Care Provider [phone] [phone] Reason for Visit * Reason Onset Date Comments Rita HOFF 03/07/2020 Encounter Details Date Type Department Care Team (Late st Contact Info) Description 03/07/2020 Documentation [facility] Neuro Sleep [address] [facility] 6th Floor [address] [place] [address] Idalmis Au RN Gralise PA Social History Tobacco Use Types Packs/Day Years Used Date Smoking Tobacco: Former Smokeless Tobacco: Never Alcohol Use Standard Drinks/Week Comments Yes 0 (1 standard drink = 0.6 oz pur e alcohol) Sex and Gender Information Value Date Recorded Sex Assigned at Not on file 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 documented in this encounter Plan of Treatment Not on file documented as of this encounter Visit Diagnoses Not on filedocumented in this encounter Care Teams Crusher Plant Operator Relationship Specialty Start Date End Date Olaf Carvajal MD [address] [place] [address] PCP - General 11/03/12 05/02/21 documented as of this encounter
--- OUTSIDE RECORDS SUMMARY | 2024-08-26 06:52 | XMS_ITS | Encounter Summary ---
Author Organization [facility] Address [address] [place] [address] Phone Care Team Providers Care Photographic Plate Maker Name Role Phone Olaf Carvajal MD Primary Care Provider [phone] [phone] Encounter Details Date Type Department Care Team (Late st Contact Info) Description 03/03/2018 Orders Only [facility] Neuro Sleep [address] [facility] 6th Floor [address] [place] [address] Светлана Castillo MD PhD [address] [place], [place] [id number] Social History Tobacco Use Types Packs/Day Years Used Date Smoking Tobacco: Former Smokeless Tobacco: Never Alcohol Use Standard Drinks/Week Comments Yes 0 (1 standard drink = 0.6 oz pur e alcohol) Sex and Gender Information Value Date Recorded Sex Assigned at Not on file 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
--- OUTSIDE RECORDS SUMMARY | 2024-08-26 06:52 | XMS_ITS | Encounter Summary ---
Author Organization [facility] Address [address] [place] [address] Phone Care Team Providers Care Washing Machine Operator Name Role Phone Olaf Carvajal MD Primary Care Provider [phone] [phone] Reason for Visit * Reason Onset Date Comments Rita Approval 11/04/2018 Encounter Details Date Type Department Care Team (Late st Contact Info) Description 11/04/2018 Documentation [facility] Neuro Sleep [address] [facility] 6th Floor [address] [place] [address] Idalmis Au RN Gramarshall Approval Social History Tobacco Use Types Packs/Day Years Used Date Smoking Tobacco: Former Smokeless Tobacco: Never Alcohol Use Standard Drinks/Week Comments Yes 0 (1 standard drink = 0.6 oz pur e alcohol) Sex and Gender Information Value Date Recorded Sex Assigned at Not on file 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 FIXER documented in this encounter Plan of Treatment Not on file documented as of this encounter Visit Diagnoses Not on filedocumented in this encounter Care Teams Washing Machine Operator Relationship Specialty Start Date End Date Olaf Carvajal MD [address] [place] [address] PCP - General 11/03/12 05/02/21 documented as of this encounter
--- OUTSIDE RECORDS SUMMARY | 2024-08-26 06:52 | XMS_ITS | Encounter Summary ---
Author Organization [facility] Healthcare Address [address] [place] [address] Care Team Providers Care Executive Consultant Name Role Phone Nolberot Humphrey DO Primary Care Provider [phone] Reason for Visit * Auth/Cert Specialty Diagnoses / Procedures Referred By Contac t Referred To Contact Diagnoses SOB (shortness of breath) Coronary artery disease (CAD) excluded SOB (shortness of breath) [R06.02] Procedures NC PRQ TRLUML CORONRY CHRONIC OCCLUS REVASC ONE VSL PCI CESAR MAJOR CORONARY C9600 [id number] Referral ID Status Reason Start Date Expiration Date Visits Re quested Visits Authorized [id number] 1 1 Encounter Details Date Type Department Care Team (Late st Contact Info) Description 07/11/2021 10:30 AM CDT - 07/11/2021 12:30 PM CDT Surgery [facility] [address] [place] [phone] Rosendo Alberts MD [address] [facility] [address] [place] [address] PCI CESAR MAJOR CORONARY C9600 - 08321 Surgery Details Date/Time Status Location OR Service Patient Class Case Class Case Type Trauma Case? 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 He underwent [...] Procedure(s): PCI CESAR MAJOR CORONARY C9600 - 69609 Pertinent Test Results: Limited echocardiogram on 07/12/2021: [...] EP in 1 month along with primary sales engagement executive, Dr. Sawyer in 1 month. Patient to [...] or boil rather than valladares foods. Call [phone] or [phone] to schedule an appointment with the outpatient dietitian for further diet education needs upon discharge. Other Instructions Call Plastic Frame Inserter for: Breathing Problems --Difficultly breathing at rest, with activity, or at night. --Increased cough. Call Plastic Frame Inserter for: Change in drainage or if drainage starts again when none was present Call Plastic Frame Inserter for: Check incision and call provider for the following: --Any redness, swelling, red streaks around incision/drain, or IV sites or change in appearance or abnormal bleeding. Call Plastic Frame Inserter for: General Problems Chest pain, heaviness, or [...] Medicine [address] [place] [address] [facility] [address] Next Steps: Follow up in 1 month(s) Efren Sawyer MD Specialty: Cardiology, Cardiovascular Disease, Internal Medicine, Interventional Cardiology [address] [place] [address] [facility] [address] Next Steps: Follow up in 1 month(s) [facility] [address] [facility] [address] Next Steps: Follow up Comments: Dr. Rosendo Alberts is patient's Hr Intern, and will not be managing patient during cardiac rehab. Please contact patient's established Plastic Frame Inserter, Dr. Efren Sawyer, for additional information/medical records. Questions: Please select the performing region: External Order To loc/pos: [facility] Select a phase: Phase 2 # of visits: 1 Referral Status: External - Ready to Schedule Nolberto Humphrey DO Specialty: Internal Medicine, Pediatrics Relationship: PCP - General [address] [facility] [facility] [place] [address] Next Steps: Follow up Cosigned by Rosendo [...] up with EP, Dr. Nguyen and primary sales engagement executive Dr. Sawyer in 3-4 weeks. Activity Instructions [...] or boil rather than valladares foods. Call [phone] or [phone] to schedule an appointment with the outpatient dietitian for further diet education needs upon discharge. Other Instructions Call Plastic Frame Inserter for: Breathing Problems --Difficultly breathing at rest, with activity, or at night. --Increased cough. Call Plastic Frame Inserter for: Change in drainage or if drainage starts again when none was present Call Plastic Frame Inserter for: Check incision and call provider for the following: --Any redness, swelling, red streaks around incision/drain, or IV sites or change in appearance or abnormal bleeding. Call Plastic Frame Inserter for: General Problems Chest pain, heaviness, or [...] After Coronary Angioplasty and Intravascular Stent Placement (Machinist Helper) (Croatian) documented in this encounter Medications at Time [...] Patient Name: Olaf Croft : 1945 Room/Bed: [place] [address]/[address] Insurance: [facility] Progress Note Parts And Service Manager: EVELYNE Fuentes Date: 07/13/2021 Referring Diagnosis for [...] fats)and exercise. Advised pt to consult their bag presser, nurse, and/or physician if they have any questions about their diet/nutrition. ?? Cardiac Rehab: Gave pt options of facilities for Outpatient Cardiac Rehab (OCR) in their community. Explained OCR program. Pt expressed knowledge towards local OCR program - pt prefers [facility] OCR in [place], [place]. I anticipate that insurance/cost could be [...] working towards eventually trying to reach the [employer] recommendations in regardsto exercise: 150+ [...] when it would be appropriate to call Plastic Frame Inserter's office, go to the ER, or call 911. ?? Insurance Coverage: Briefly explained general insurance coverage for OCR, but assured pt that OCR facility will usuallycall insurance and inform pt of more of an approximate coverage. ?? Post-Discharge: Explained process between discharge from hospital, and getting set up in an OCR program - f/u with Plastic Frame Inserter, DEVI f/u calls, OCR program contact. Conclusion Pt seems likely to participate in OCR, pending insurance coverage. Reassured pt of importance and health care provider support of OCR. Pt verbalized understanding of education, and all questions were answered to the best of my ability. Will complete order for OCR to be sent to Plastic Frame Inserter. Thank you for allowing us to assistant scientist in the care of this patient, please don't hesitate to contact the Cardiac Rehab Navigator office with any questions: [phone]. documented in this encounter Consult Notes * Shavonne Lyn NP - 07/12/2021 2:14 PM CDT Consult Note Patient Name: Olaf Croft Date of : 1945 Primary Physician: Nolberto Humphrey DO Chief Complaint SVT HPI Olaf Croft is a 75 y.o. male seen in consultation for SVT. The patient presented with chest pain and shortness of breath and was referred for HARD ROCK MINER BLASTING PCI. He underwent successful ivus guided PCIof the right PDA HARD ROCK MINER BLASTING, PCI of the LAD, and PCI of [...] and Family: Not on file ??? Attends [employer]: Not on file ??? Active Member [...] following was dictated with voice-recognition software, and soccer referee errors may be present: ATTENDING PHYSICIAN ATTESTATION: [...] * Roe Nguyen III, M.D. Cardiac Electrophysiology [facility] * Rosendo Alberts [...] of his back. 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 ?? MEDICAL HISTORY ?? Medical History Past [...] and Family: Not on file ??? Attends [employer]: Not on file ??? Active Member [...] pt home via ride service through insurance [employer]. Taken to ride via by [facility]. * Plan of Care - Bhakti Espan[place] [...] to chest since procedure. Has not worsened. SENIOR PROJECT ACCOUNTANT called on pt this morning at approx 0715 for SVT 170-180's. Other vs remained stable during SENIOR PROJECT ACCOUNTANT. Pt felt fluttering in chest and diaphoretic. [...] Rapid Response Team Event Note Reason for SENIOR PROJECT ACCOUNTANT: tachycardia Time Called: 720 Time Arrived: 722 SUBJECTIVE BRIEF HX: Patient is a 75 y.o. male admitted on 07/11/2021 with CAD and dyspnea and is s/p PCI with stents placed x 4. SENIOR PROJECT ACCOUNTANT was called 2/2 tachycardia with a HR [...] on RA. A&O 4. Admitted 07/11 to [facility] from boot and shoe laborer. 2 stents LAD and 2 stents RCA [...] from the original note were not included. [facility] [address] [id number], [address] IVUS and HARD ROCK MINER BLASTING PCI Procedure Report 75 year old male with CAD and dyspnea referred for HARD ROCK MINER BLASTING PCI. Access:7F Right Femoral Artery and 7F Right Radial Artery Catheter:CLS3.5 Guide, 7F AL1 Guide Injection:Left Main Trunk and Right Coronary Artery Closure:TR band and Perclose Anticoagulation:[id number] Heparin, Clopidogrel and Aspirin Air Kerma:2385 mGy Fluoro time:39 min Contrast:250 ml Optiray Sedation:2mg Versed, 100 mcg fentanyl Procedural details: After risks, benefits, and alternatives to the procedure were explained to the patient, they agreedto proceed. After signing informed consent the patient was brought to the cardiac catheterization laboratory. There were prepped and draped in sterile fashion. A 7 Thai sheath was inserted in the Right Femoral Artery and Right Radial Artery using the modified Seldinger technique with ultrasound guidance. We then performed dual selective coronary angiography using various catheters. We then performed IVUS and PCI of the LAD, IVUS and PCI of the Right PDA HARD ROCK MINER BLASTING, and PCI of the Right PVB using [...] XT to the distal PDA through the HARD ROCK MINER BLASTING via a MC. IVUS showed diffuse atherosclerosis. [...] IVUS guided PCI of the Right PDA HARD ROCK MINER BLASTING, IVUS guided PCI of the LAD, and PCI of the Right PVB using 4 total stents. Continue aspirin 81 mg indefinitely. 300mg Clopidogrel given in the boot and shoe laborer. 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 Narrative 08/10/2021 5:28 PM PET CREMATORY WORKER [facility] [address] [place] [address] CARDIAC EVENT MONITOR REPORT Patient Name: OLAF CROFT JOH : 1945 (75y 10m) Study Date: 08/08/2021 6:00:00 AM Gender: M Tech: Location: [address] Ref.Provider: DOUGLAS HOPSON Height(Cm): BSA: Weight(Kg): [...] Signed By: Efren Saravia MD 2021-08-10 17:28:53 PET CREMATORY WORKER CC: CC: Procedure Note Efren Saravia MD - 08/10/2021 [facility] [address] [place] [address] CARDIAC EVENT MONITOR REPORT Patient Name: OLAF CROFT JOHPatient ID: [id number] : 1945 (75y 10m)Study Date: 08/08/2021 6:00:00 AM Gender: MAccession #: [id number] Tech: Location: [id number] Ref.Provider: DOUGLAS HOPSONHeight(Cm): BSA: Weight(Kg): Order Provider: [...] Signed By: Efren Saravia MD 2021-08-10 17:28:53 PET CREMATORY WORKER CC: CC: Douglas Jennings NP CV CARDIAC SERVICES [place] OCEDURES Final Result * Magnesium (07/13/2021 4:39 AM CDT) Magnesium 2.1 1.4 - 2.5 mg/dL [facility] Blood 07/13/2021 4:39 AM CDT 07/13/2021 5:13 AM CDT us Rosendo Alberts MD LAB BLOOD ORDERABLES Final Resul t [facility] [address] Department [place] [address] * eGFR (07/13/2021 4:39 AM CDT) eGFR 70 mL/min/1.7 3 m2 [facility] Comment: Interpretive Data Reference Interval Normal ?>/= [...] KING LAB BLOOD ORDERABLES Final Resul t [facility] [address] Department [place] [address] * Basic metabolic panel (07/13/2021 4:39 AM CDT) Sodium 143 135 - 145 mmol/L [facility] Potassium, pl 3.8 3.3 - 4.9 mmol/L [facility] Chloride 105 97 - 110 mmol/L [facility] CO2 28 22 - 32 mmol/L [facility] Anion gap 10 2 - 15 mmol/L [facility] BUN 11 8 - 25 mg/dL [facility] Creatinine 1.05 0.80 - 1.30 mg/dL [facility] Glucose 103 70 - 199 mg/dL [facility] Comment: Interpretive Data Fasting glucose >/= 126 [...] Calcium 9.0 8.5 - 10.3 mg/dL [facility] Blood 07/13/2021 4:39 AM CDT 07/13/2021 5:13 AM CDT us Rosendo Alberts MD LAB BLOOD ORDERABLES Final Resul t [facility] [address] [place] [address] * TRANSTHORACIC ECHO (TTE) LIMITED/FOLLOW UP W LTD DOPPLER/CF WO CONTRAST (07/12/2021 11:28 AM CDT) Anatomical Region Laterality Modality Ultrasound 07/12/2021 7:18 AM CDT Narrative 07/13/2021 12:08 AM CDT [facility] [address] [place] [address] LIMITED ECHOCARDIOGRAM Patient Name: OLAF CROFT JOHN : 1945 Study Date: 07/12/2021 7:18:11 AM Gender: M Tech: Location: [id number] Ref.Provider: ROSENDO ALBERTS Height(Cm): 183 BSA: Weight(Kg): [...] Procedure Note Rosendo Alberts MD - 07/13/2021 [facility] [place] [address] LIMITED ECHOCARDIOGRAM Patient Name: OLAF CROFT JOHNPatient ID: [id number] : [id number] Date: 07/12/2021 7:18:11 AM Gender: MAccession #: [id number] Tech: KPLocation: [id number] Ref.Provider: ROSENDO ALBERTSHeight(Cm): 183 BSA: Weight(Kg): 105.23 [...] test (07/12/2021 7:57 AM CDT) Acceptable Yes [facility] Blood 07/12/2021 7:57 AM CDT 07/12/2021 7:58 AM CDT Narrative [facility] - 07/12/2021 7:58 AM CDT Name of Test->Phosphorus us Asha HOFF LAB BLOOD ORDERABLES Final Result [facility] [address] Department [place] [address] * Magnesium - Add on lab test (07/12/2021 7:57 AM CDT) Pathologist [facility] Acceptable Yes [facility] Blood 07/12/2021 7:57 AM CDT 07/12/2021 7:58 AM CDT Narrative [facility] - 07/12/2021 7:58 AM CDT Name of Test->Magnesium us Asha HOFF LAB BLOOD ORDERABLES Final Result [facility] [address] Department [place] [address] * (ABNORMAL) Differential, auto (07/12/2021 7:46 AM CDT) [facility] Neutrophil abs 9.6(H) 1.7 - 6.5 K/cumm [facility] Imm gran abs 0.1 0.0 - 0.1 K/cumm [facility] Lymphocyte abs 2.0 0.8 - 3.3 K/cumm [facility] Monocyte abs 1.0(H) 0.2 - 0.8 K/cumm [facility] Eosinophil abs 0.0 0.0 - 0.5 K/cumm [facility] Basophil abs 0.0 0.0 - 0.1 K/cumm [facility] Neutrophil pct 75.2 % [facility] Comment: Interpretive Data Percent cell count reference ranges are not reported, since discordance with absolute values may lead to misinterpretation of CBC data. Current Interpretive Data was last revised on 2017. Imm gran pct 0.6 % [facility] Comment: Interpretive Data Percent cell count reference ranges are not reported, since discordance with absolute values may lead to misinterpretation of CBC data. Current Interpretive Data was last revised on 2017. Lymphocyte pct 16.0 % [facility] Comment: Interpretive Data Percent cell count reference ranges are not reported, since discordance with absolute values may lead to misinterpretation of CBC data. Current Interpretive Data was last revised on 2017. Monocyte pct 7.9 % [facility] Comment: Interpretive Data Percent cell count reference ranges are not reported, since discordance with absolute values may lead to misinterpretation of CBC data. Current Interpretive Data was last revised on 2017. Eosinophil pct 0.1 % [facility] Comment: Interpretive Data Percent cell count reference ranges are not reported, since discordance with absolute values may lead to misinterpretation of CBC data. Current Interpretive Data was last revised on 2017. Basophil pct 0.2 % [facility] Comment: Interpretive Data Percent cell count reference ranges are not reported, since discordance with absolute values may lead to misinterpretation of CBC data. Current Interpretive Data was last revised on 2017. Blood 07/12/2021 7:46 AM CDT 07/12/2021 8:11 AM CDT us Asha HOFF LAB BLOOD ORDERABLES Final Result [facility] [address] Department [place] [address] * (ABNORMAL) CBC with auto differential (07/12/2021 7:46 AM CDT) WBC 12.7(H) 3.8 - 9.9 K/cumm [facility] Hgb 12.5(L) 13.0 - 17.5 g/dL [facility] Hct 36.6(L) 38.9 - 50.3 % [facility] Plt 201 150 - 400 K/cumm [facility] MPV 10.9 9.1 - 12.3 fL [facility] RBC 3.98(L) 4.30 - 5.80 M/cumm [facility] MCV 92.0 81.3 - 96.4 fL [facility] MCH 31.4 27.1 - 33.3 pg [facility] MCHC 34.2 32.3 - 35.7 g/dL [facility] RDW CV 12.7 11.1 - 14.9 % [facility] RDW SD 42.7 35.7 - 48.1 fL [facility] NRBC abs 0.00 0.00 - 0.01 K/cumm [facility] Blood 07/12/2021 7:46 AM CDT 07/12/2021 8:11 AM CDT Asha HOFF LAB BLOOD ORDERABLES Final Result Performing Organization Address [facility] Co de Phone Number [facility] [address] Department of [employer] [place], [place] [id number] * Sepsis Lactate w/ Reflex (07/12/2021 7:46 AM CDT) Pathologist [facility] Sepsis Lactate 1.5 0.7 - 2.0 mmol/L [facility] Blood 07/12/2021 7:46 AM CDT 07/12/2021 7:58 AM CDT Asha HOFF LAB BLOOD ORDERABLES Final Result Performing Organization Address [facility] Co de Phone Number [facility] [address] Department of [employer] [place], [place] [id number] * POCT glucose (07/12/2021 7:29 AM CDT) Pathologist [facility] Glucose, POC 125 70 - 140 mg/dL [facility] Comment: For Glucose values <35 mg/dl when Hematocrit is >60 mg/dl,the test may not accurately detect significant hypoglycemia,and testing in the Laboratory should be considered if clinically indicated. Blood 07/12/2021 7:29 AM CDT 07/12/2021 7:29 AM CDT us Rosendo Alberts MD LAB POCT ORDERABLES - DEVICE Fin al Result Performing Organization Address [facility] Co de Phone Number [facility] [address] Department [place], [place] [id number] * ECG 12 lead (07/12/2021 7:21 AM CDT) 07/12/2021 7:21 AM CDT Narrative [facility] - 07/12/2021 2:11 PM CDT [place] Rate: 179 bpm RR Interval: 334 msec NC Interval: 0 msec QRS Duration: 91 msec QT Interval: 249 msec QTC Interval: 344 msec P-R-T [place]: 0 - 2 - 0 degrees SUPRAVENTRICULAR TACHYCARDIA NONSPECIFIC ST \T\ T-WAVE ABNORMALITY CRITICAL TEST RESULT Electronically Signed By: Cynthia Jones MD, [facility] us Rosendo Alberts MD ECG ORDERABLES Final Result Performing Organization Address City/[facility]/ZIP Co de Phone Number [facility] * Magnesium (07/12/2021 6:35 AM CDT) [facility] Magnesium 1.8 1.4 - 2.5 mg/dL [facility] Blood 07/12/2021 6:35 AM CDT 07/12/2021 6:54 AM CDT us Asha HOFF LAB BLOOD ORDERABLES Final Result Performing Organization Address [facility]/ZIP Co de Phone Number [facility] [address] Department of [employer] [place], [place] [id number] * Phosphorus (07/12/2021 6:35 AM CDT) [facility] Phosphorus, pl 3.3 2.3 - 4.5 mg/dL [facility] Blood 07/12/2021 6:35 AM CDT 07/12/2021 6:54 AM CDT us Asha HOFF LAB BLOOD ORDERABLES Final Result Performing Organization Address [facility]/ZIP Co de Phone Number [facility] [address] Department of [employer] [place] [address] * eGFR (07/12/2021 6:35 AM CDT) [facility] eGFR 68 mL/min/1.7 3 m2 [facility] Comment: Interpretive Data Reference Interval Normal ?>/= [...] MD LAB BLOOD ORDERABLES Final Resul t [facility] [address] Department [place] [address] * Basic metabolic panel (07/12/2021 6:35 AM CDT) Sodium 138 135 - 145 mmol/L [facility] Potassium, pl 3.7 3.3 - 4.9 mmol/L [facility] Chloride 102 97 - 110 mmol/L [facility] CO2 26 22 - 32 mmol/L [facility] Anion gap 10 2 - 15 mmol/L [facility] BUN 12 8 - 25 mg/dL [facility] Creatinine 1.07 0.80 - 1.30 mg/dL [facility] Glucose 115 70 - 199 mg/dL [facility] Comment: Interpretive Data Fasting glucose >/= 126 [...] Calcium 9.1 8.5 - 10.3 mg/dL [facility] Blood 07/12/2021 6:35 AM CDT 07/12/2021 6:54 AM CDT us Rosendo Alberts MD LAB BLOOD ORDERABLES Final Resul t Performing Organization Address City/[facility]/ZIP Co de Phone Number [facility] [address] Department [place] [address] * ECG 12 lead (07/11/2021 5:41 PM CDT) 07/11/2021 5:41 PM CDT Narrative [facility] - 07/12/2021 1:39 PM CDT [place] Rate: 55 bpm RR Interval: 1072 msec NC Interval: 144 msec QRS Duration: 94 msec QT Interval: 406 msec QTC Interval: 396 msec P-R-T [place]: -3 - 19 - 6 degrees SINUS BRADYCARDIA WITH MARKED SINUS ARRHYTHMIA ST ELEVATION V2 through V6, PROBABLY EARLY REPOLARIZATION; clinical correlation advised BORDERLINE ECG Electronically Signed By: Cynthia Jones MD, [facility] us Rosendo Alberts MD ECG ORDERABLES Final Result Performing Organization Address [facility] Co de Phone Number [facility] Project Repat [facility] * CESAR MAJOR CORONARY (07/11/2021 5:12 PM CDT) Anatomical Region Laterality Modality X-Ray Angiograph y Narrative 07/11/2021 5:29 PM CDT [facility] ?? [address] [facility], [id number] [place], [place], [address] ?? IVUS and HARD ROCK MINER BLASTING PCI Procedure Report 75 year old male with CAD and dyspnea referred for HARD ROCK MINER BLASTING PCI. Access:7F Right Femoral Artery and 7F Right Radial Artery Catheter:CLS3.5 Guide, 7F AL1 Guide Injection:Left Main Trunk and Right Coronary Artery Closure:TR band and Perclose Anticoagulation:[id number] Heparin, Clopidogrel and Aspirin Air Kerma:2385 mGy Fluoro time:39 min Contrast:250 ml Optiray Sedation:2mg Versed, 100 mcg fentanyl Procedural details: After risks, benefits, and alternatives to the procedure were explained to the patient, they agreed to proceed. ??After signing informed consent the patient was brought to the cardiac catheterization laboratory. ??There were prepped and draped in sterile fashion. A 7 Thai sheath was inserted in the Right Femoral Artery and Right Radial Artery using the modified Seldinger technique with ultrasound guidance. ??We then performed dual selective coronary angiography using various catheters. ??We then performed IVUS and PCI of the LAD, IVUS and PCI of the Right PDA HARD ROCK MINER BLASTING, and PCI of the Right PVB using [...] XT to the distal PDA through the HARD ROCK MINER BLASTING via a MC. ??IVUS showed diffuse atherosclerosis. [...] IVUS guided PCI of the Right PDA HARD ROCK MINER BLASTING, IVUS guided PCI of the LAD, and PCI of the Right PVB using 4 total stents. ??Continue aspirin 81 mg indefinitely. ??300mg Clopidogrel given in the boot and shoe laborer. ??Continue 75mg daily for at least 1 year without interruption. ??Continue to optimize medical therapy and reduce atherosclerotic risk factors. Further management per the medicine and cardiology teams. Rosendo Alberts MD 07/11/2021 5:14 PM us Rosendo Alberts MD CV CARDIAC CATH PROCEDURES Final Result * (ABNORMAL) POC Activated Clotting Time, High Range (07/11/2021 4:33 PM CDT) ACT 313(H) 87 - 138 sec [facility] Blood 07/11/2021 4:33 PM CDT 07/11/2021 4:33 PM CDT us Rosendo Alberts MD LAB BLOOD ORDERABLES Final Resul t [facility] [address] Department [place] [address] * (ABNORMAL) POC Activated Clotting Time, High Range (07/11/2021 4:07 PM CDT) ACT 215(H) 87 - 138 sec [facility] Blood 07/11/2021 4:07 PM CDT 07/11/2021 4:07 PM CDT us Rosendo Alberts MD LAB BLOOD ORDERABLES Final Resul t [facility] [address] [place] [address] * Differential, auto (07/11/2021 9:21 AM CDT) Neutrophil abs 4.7 1.7 - 6.5 K/cumm [facility] Imm gran abs 0.0 0.0 - 0.1 K/cumm [facility] Lymphocyte abs 1.4 0.8 - 3.3 K/cumm [facility] Monocyte abs 0.6 0.2 - 0.8 K/cumm [facility] Eosinophil abs 0.1 0.0 - 0.5 K/cumm [facility] Basophil abs 0.0 0.0 - 0.1 K/cumm [facility] Neutrophil pct 69.7 % [facility] Comment: Interpretive Data Percent cell count reference ranges are not reported, since discordance with absolute values may lead to misinterpretation of CBC data. Current Interpretive Data was last revised on 2017. Imm gran pct 0.4 % [facility] Comment: Interpretive Data Percent cell count reference ranges are not reported, since discordance with absolute values may lead to misinterpretation of CBC data. Current Interpretive Data was last revised on 2017. Lymphocyte pct 20.2 % [facility] Comment: Interpretive Data Percent cell count reference ranges are not reported, since discordance with absolute values may lead to misinterpretation of CBC data. Current Interpretive Data was last revised on 2017. Monocyte pct 8.6 % [facility] Comment: Interpretive Data Percent cell count reference ranges are not reported, since discordance with absolute values may lead to misinterpretation of CBC data. Current Interpretive Data was last revised on 2017. Eosinophil pct 0.7 % [facility] Comment: Interpretive Data Percent cell count reference ranges are not reported, since discordance with absolute values may lead to misinterpretation of CBC data. Current Interpretive Data was last revised on 2017. Basophil pct 0.4 % [facility] Comment: Interpretive Data Percent cell count reference ranges are not reported, since discordance with absolute values may lead to misinterpretation of CBC data. Current Interpretive Data was last revised on 2017. Blood 07/11/2021 9:21 AM CDT 07/11/2021 9:21 AM CDT us Rosendo Alberts MD LAB BLOOD ORDERABLES Final Resul t Performing Organization Address City/[facility]/ZIP Co de Phone Number [facility] [address] [employer] [place], [place] [id number] * CBC with auto differential (07/11/2021 9:21 AM CDT) WBC 6.8 3.8 - 9.9 K/cumm [facility] Hgb 13.7 13.0 - 17.5 g/dL [facility] Hct 41.8 38.9 - 50.3 % [facility] Plt 200 150 - 400 K/cumm [facility] MPV 11.0 9.1 - 12.3 fL [facility] RBC 4.46 4.30 - 5.80 M/cumm [facility] MCV 93.7 81.3 - 96.4 fL [facility] MCH 30.7 27.1 - 33.3 pg [facility] MCHC 32.8 32.3 - 35.7 g/dL [facility] RDW CV 12.5 11.1 - 14.9 % [facility] RDW SD 42.9 35.7 - 48.1 fL [facility] NRBC abs 0.00 0.00 - 0.01 K/cumm [facility] Blood 07/11/2021 9:21 AM CDT 07/11/2021 9:21 AM CDT us Rosendo Alberts MD LAB BLOOD ORDERABLES Final Resul t Performing Organization Address City/[facility]/ZIP Co de Phone Number [facility] [address] [place] [place] [address] * eGFR (07/11/2021 9:08 AM CDT) Pathologist [facility] eGFR 71 mL/min/1.7 3 m2 [facility] Comment: Interpretive Data Reference Interval Normal ?>/= [...] MD LAB BLOOD ORDERABLES Final Resul t [facility] [address] Department [place] [address] * Basic metabolic panel (07/11/2021 9:08 AM CDT) [facility] Sodium 142 135 - 145 mmol/L [facility] Potassium, pl 4.0 3.3 - 4.9 mmol/L [facility] Chloride 107 97 - 110 mmol/L [facility] CO2 26 22 - 32 mmol/L [facility] Anion gap 9 2 - 15 mmol/L [facility] BUN 11 8 - 25 mg/dL [facility] Creatinine 1.03 0.80 - 1.30 mg/dL [facility] Glucose 96 70 - 199 mg/dL [facility] Comment: Interpretive Data Fasting glucose >/= 126 [...] 2017. Calcium 9.5 8.5 - 10.3 mg/dL [facility] Blood 07/11/2021 9:08 AM CDT 07/11/2021 9:20 AM CDT us Rosendo Alberts MD LAB BLOOD ORDERABLES Final Resul t [facility] [address] [place] [address] documented in this encounter Visit [...] 0911 (New Bag - Provider: Cathy Orourke, NAIZA) sodium chloride 0.9% infusion () 100 mL/hr, [...] 07/11/2021 documented in this encounter Care Teams Executive Consultant Relationship Specialty Start Date End Date Nolberto Humphrey DO PCP - General Internal Medicine 05/03/21 11/19/22 documented as of this encounter
--- OUTSIDE RECORDS SUMMARY | 2024-08-26 06:52 | XMS_ITS | Encounter Summary ---
Author Organization 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
--- OUTSIDE RECORDS SUMMARY | 2024-08-26 06:52 | XMS_ITS | Encounter Summary ---
Author Organization [facility] Address [address] [place] [address] Care Team Providers Care Crimping Machine Operator For Metal Name Role Phone Nolberto Humphrey DO Primary Care Provider [phone] Encounter Details Date Type Department Care Team (Late st Contact Info) Description 07/03/2021 Telephone [facility] Cardiology [address] [place] [address] Efren Sawyer MD [address] [place] [address] Social History Tobacco Use Types Packs/Day Years Used Date Smoking Tobacco: Former Smokeless Tobacco: Never Alcohol Use Standard Drinks/Week Comments Yes 0 (1 standard drink = 0.6 oz pur e alcohol) Sex and Gender Information Value Date Recorded Sex Assigned at Not on file 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 Will call tomorrow am since after 5 now. Pt aware. * Telephone Encounter - Jeyson Escoto - 07/03/2021 4:01 PM CDT Pt requesting a call,states he was instructed to call our office if [facility] did not call him by 3:30pm today,please advise.Thank you Contact:[phone] * Telephone Encounter - Jazmyne Fan RN - 07/03/2021 3:01 PM CDT Spoke with pt. He has a small blister 2-3 inches above the C incision site. Denies pain. Pt stillhas a statseal in place. 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 Observe for signs of infection, redness, increase [...] on filedocumented in this encounter Care Teams Crimping Machine Operator For Metal Relationship Specialty Start Date End Date Nolberto Humphrey DO PCP - General Internal Medicine 05/03/21 11/19/22 documented as of this encounter
--- OUTSIDE RECORDS SUMMARY | 2024-08-26 06:52 | XMS_ITS | Encounter Summary ---
Author Organization [facility] Healthcare Address [address] [place] [address] Care Team Providers Care Paper Counter Name Role Phone Nolberto Humphrey DO Primary Care Provider Reason for Visit * Auth/Cert Specialty Diagnoses / Procedures Referred By Contac t Referred To Contact Diagnoses SOB (shortness of breath) Coronary artery disease (CAD) excluded SOB (shortness of breath) [R06.02] Procedures NM PRQ TRLUML CORONRY CHRONIC OCCLUS REVASC ONE VSL PCI CESAR MAJOR CORONARY C9600 - 21145 Referral ID Status Reason Start Date Expiration Date Visits Re quested Visits Authorized [id number] 1 1 Encounter Details Date Type Department Care Team (Latest Contact Info) Description 07/11/2021 8:36 AM CDT - 07/13/2021 5:00 PM CDT Hospital Encounter [facility] [address] [place] [address] Rosendo Alberts MD [address] [facility] [address] [place], [place] [id number] Coronary artery disease (CAD) excluded (Primary Dx); [...] on file Legal 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 Gender Identity Not on file Sexual [...] Care Physician at Discharge: Nolberto Humphrey DO [phone] Admission Date: 07/11/2021 Discharge Date: 07/13/2021 Admission Location: [facility] Hospital Problems/Diagnoses: Principal Problem: Dyspnea on effort Active Problems: Coronary artery disease (CAD) excluded SVT (supraventricular tachycardia) (CMS/HCC) ([facility]) Chest pain Sleep apnea DETAILS OF HOSPITAL STAY Presenting Problem/History of Present Illness: Patient presented to his primary electron beam machine welder setter with complaints of exertional dyspnea. He underwent [...] Procedure(s): PCI CESAR MAJOR CORONARY C9600 - [id number] Pertinent Test Results: Limited echocardiogram on 07/12/2021: [...] EP in 1 month along with primary electron beam machine welder setter, Dr. Sawyer in 1 month. Patient to [...] or boil rather than valladares foods. Call [phone] or [phone] to schedule an appointment with the outpatient dietitian for further diet education needs upon discharge. Other Instructions Call Oil Sales And Service Rep for: Breathing Problems --Difficultly breathing at rest, with activity, or at night. --Increased cough. Call Oil Sales And Service Rep for: Change in drainage or if drainage starts again when none was present Call Oil Sales And Service Rep for: Check incision and call provider for the following: --Any redness, swelling, red streaks around incision/drain, or IV sites or change in appearance or abnormal bleeding. Call Oil Sales And Service Rep for: General Problems Chest pain, heaviness, or [...] Clinical Cardiac Electrophysiology, Internal Medicine [address] [place] [address] [facility] [address] Next Steps: Follow up in 1 month(s) Efren Sawyer MD Specialty: Cardiology, Cardiovascular Disease, Internal Medicine, Interventional Cardiology [address] [place] [address] [facility] [address] Next Steps: Follow up in 1 month(s) [facility] [address] [facility] [address] Next Steps: Follow up Comments: Dr. Rosendo Alberts is patient's Credit Department Manager, and will not be managing patient during cardiac rehab. Please contact patient's established Oil Sales And Service Rep, Dr. Efren Sawyer, for additional information/medical records. Questions: Please select the performing region: External Order To loc/pos: [facility] Select a phase: Phase 2 # of visits: 1 Referral Status: External - Ready to Schedule Nolberto Humphrey DO Specialty: Internal Medicine, Pediatrics Relationship: PCP - General [address] [place] [phone] Next Steps: Follow up Cosigned by Rosendo [...] up with EP, Dr. Nguyen and primary electron beam machine welder setter Dr. Sawyer in 3-4 weeks. Activity Instructions [...] or boil rather than valladares foods. Call [phone] or [phone] to schedule an appointment with the outpatient dietitian for further diet education needs upon discharge. Other Instructions Call Oil Sales And Service Rep for: Breathing Problems --Difficultly breathing at rest, with activity, or at night. --Increased cough. Call Oil Sales And Service Rep for: Change in drainage or if drainage starts again when none was present Call Oil Sales And Service Rep for: Check incision and call provider for the following: --Any redness, swelling, red streaks around incision/drain, or IV sites or change in appearance or abnormal bleeding. Call Oil Sales And Service Rep for: General Problems Chest pain, heaviness, or [...] After Coronary Angioplasty and Intravascular Stent Placement (Medical Biller Coder) (Kosovan) documented in this encounter Medications at Time [...] Patient Name: Olaf Croft : 1945 Room/Bed: [place] [address]/[address] Insurance: [facility] Progress Note Recyclable Materials Sorter: EVELYNE Fuentes Date: 07/13/2021 Referring Diagnosis for [...] fats)and exercise. Advised pt to consult their advice clerk, nurse, and/or physician if they have any questions about their diet/nutrition. ?? Cardiac Rehab: Gave pt options of facilities for Outpatient Cardiac Rehab (OCR) in their community. Explained OCR program. Pt expressed knowledge towards local OCR program - pt prefers [facility] OCR in [place], [place]. I anticipate that insurance/cost could be [...] working towards eventually trying to reach the [place] [employer] recommendations in regardsto exercise: 150+ [...] when it would be appropriate to call Oil Sales And Service Rep's office, go to the ER, or call 911. ?? Insurance Coverage: Briefly explained general insurance coverage for OCR, but assured pt that OCR facility will usuallycall insurance and inform pt of more of an approximate coverage. ?? Post-Discharge: Explained process between discharge from hospital, and getting set up in an OCR program - f/u with Oil Sales And Service Rep, DEVI f/u calls, OCR program contact. Conclusion Pt seems likely to participate in OCR, pending insurance coverage. Reassured pt of importance and health care provider support of OCR. Pt verbalized understanding of education, and all questions were answered to the best of my ability. Will complete order for OCR to be sent to Oil Sales And Service Rep. Thank you for allowing us to assistant professor in family studies in the care of this patient, please don't hesitate to contact the Cardiac Rehab Navigator office with any questions: [phone]. documented in this encounter Consult Notes * Shavonne Lyn NP - 07/12/2021 2:14 PM CDT Consult Note Patient Name: Olaf Croft Date of : 1945 Primary Physician: Nolberto Humphrey DO Chief Complaint SVT HPI Olaf Croft is a 75 y.o. male seen in consultation for SVT. The patient presented with chest pain and shortness of breath and was referred for FLORIST PCI. He underwent successful ivus guided PCIof the right PDA FLORIST, PCI of the LAD, and PCI of [...] and Family: Not on file ??? Attends Denominational Services: Not on file ??? Active Member [...] following was dictated with voice-recognition software, and vulcanizing machine operator errors may be present: ATTENDING PHYSICIAN ATTESTATION: [...] * Roe Nguyen III, M.D. Cardiac Electrophysiology [facility] * Rosendo [...] because of his back. 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 ?? MEDICAL HISTORY ?? Medical History [...] and Family: Not on file ??? Attends Denominational Services: Not on file ??? Active Member [...] And pt home via ride service through [employer]. Taken to ride via by PCT. * [...] to chest since procedure. Has not worsened. EMBOSSING UNIT OPERATOR called on pt this morning at approx 0715 for SVT 170-180's. Other vs remained stable during EMBOSSING UNIT OPERATOR. Pt felt fluttering in chest and diaphoretic. [...] Rapid Response Team Event Note Reason for EMBOSSING UNIT OPERATOR: tachycardia Time Called: 720 Time Arrived: 722 SUBJECTIVE BRIEF HX: Patient is a 75 y.o. male admitted on 07/11/2021 with CAD and dyspnea and is s/p PCI with stents placed x 4. EMBOSSING UNIT OPERATOR was called 2/2 tachycardia with a HR [...] on RA. A&O 4. Admitted 07/11 to [facility] from lab coordinator. 2 stents LAD and 2 stents RCA [...] from the original note were not included. [facility] Cardiology [address] [facility], [id number] [place] [address], [address] IVUS and FLORIST PCI Procedure Report 75 year old male with CAD and dyspnea referred for FLORIST PCI. Access:7F Right Femoral Artery and 7F Right Radial Artery Catheter:CLS3.5 Guide, 7F AL1 Guide Injection:Left Main Trunk and Right Coronary Artery Closure:TR band and Perclose Anticoagulation:97161Buswz Heparin, Clopidogrel and Aspirin Air Kerma:2385 mGy Fluoro time:39 min Contrast:250 ml Optiray Sedation:2mg Versed, 100 mcg fentanyl Procedural details: After risks, benefits, and alternatives to the procedure were explained to the patient, they agreedto proceed. After signing informed consent the patient was brought to the cardiac catheterization laboratory. There were prepped and draped in sterile fashion. A 7 Bahraini sheath was inserted in the Right Femoral Artery and Right Radial Artery using the modified Seldinger technique with ultrasound guidance. We then performed dual selective coronary angiography using various catheters. We then performed IVUS and PCI of the LAD, IVUS and PCI of the Right PDA FLORIST, and PCI of the Right PVB using [...] XT to the distal PDA through the FLORIST via a MC. IVUS showed diffuse atherosclerosis. [...] IVUS guided PCI of the Right PDA FLORIST, IVUS guided PCI of the LAD, and PCI of the Right PVB using 4 total stents. Continue aspirin 81 mg indefinitely. 300mg Clopidogrel given in the lab coordinator. Continue 75mg daily for at least 1 [...] Laterality Modality Electrocardiogra phy 08/08/2021 6:00 AM COMPETITIVE INTELLIGENCE MANAGER Narrative 08/10/2021 5:28 PM COMPETITIVE INTELLIGENCE MANAGER [facility] [place] [address] [place] [address] CARDIAC EVENT MONITOR REPORT Patient Name: OLAF CROFT JOH : 1945 (75y 10m) Study Date: 08/08/2021 6:00:00 AM Gender: M Tech: Location: [address] Ref.Provider: DOUGLAS HOPSON Height(Cm): BSA: Weight(Kg): [...] Signed By: Efren Saravia MD 2021-08-10 17:28:53 COMPETITIVE INTELLIGENCE MANAGER CC: CC: Procedure Note Efren Saravia MD - 08/10/2021 [facility] [place] [address] CARDIAC EVENT MONITOR REPORT Patient Name: OLAF CROFT JOHPatient ID: [id number] : 1945 (75y 10m)Study Date: 08/08/2021 6:00:00 AM Gender: MAccession #: [id number] Tech: Location: [address] Ref.Provider: DOUGLAS HOPSONHeight(Cm): BSA: Weight(Kg): Order [...] Signed By: Efren Saravia MD 2021-08-10 17:28:53 COMPETITIVE INTELLIGENCE MANAGER CC: CC: us Douglas Jennings NP CV CARDIAC SERVICES NM OCEDURES Final Result * Magnesium (07/13/2021 4:39 AM CDT) Pathologist [facility] Magnesium 2.1 1.4 - 2.5 mg/dL [facility] Blood 07/13/2021 4:39 AM CDT 07/13/2021 5:13 AM CDT us Rosendo Alberts MD LAB BLOOD ORDERABLES Final Resul t [facility] [address] Department [place] [address] * eGFR (07/13/2021 4:39 AM CDT) eGFR 70 mL/min/1.7 3 m2 [facility] Comment: Interpretive Data Reference Interval Normal ?>/= [...] MD LAB BLOOD ORDERABLES Final Resul t [facility] [address] Department [place] [address] * Basic metabolic panel (07/13/2021 4:39 AM CDT) Sodium 143 135 - 145 mmol/L [facility] Potassium, pl 3.8 3.3 - 4.9 mmol/L [facility] Chloride 105 97 - 110 mmol/L [facility] CO2 28 22 - 32 mmol/L [facility] Anion gap 10 2 - 15 mmol/L [facility] BUN 11 8 - 25 mg/dL [facility] Creatinine 1.05 0.80 - 1.30 mg/dL [facility] Glucose 103 70 - 199 mg/dL [facility] Comment: Interpretive Data Fasting glucose >/= 126 [...] Calcium 9.0 8.5 - 10.3 mg/dL [facility] Blood 07/13/2021 4:39 AM CDT 07/13/2021 5:13 AM CDT us Rosendo Alberts MD LAB BLOOD ORDERABLES Final Resul t [facility] [address] Department [place] [address] * TRANSTHORACIC ECHO (TTE) LIMITED/FOLLOW UP W LTD DOPPLER/CF WO CONTRAST (07/12/2021 11:28 AM CDT) Anatomical Region Laterality Modality Ultrasound 07/12/2021 7:18 AM CDT Narrative 07/13/2021 12:08 AM CDT [facility] [place] [address] [place] [address] LIMITED ECHOCARDIOGRAM Patient Name: OLAF CROFT JOHN : 1945 Study Date: 07/12/2021 7:18:11 AM Gender: M Tech: Location: [id number] Ref.Provider: ROSENDO ALBERTS Height(Cm): 183 BSA: Weight(Kg): [...] Procedure Note Rosendo Alberts MD - 07/13/2021 [facility] [place] [address] LIMITED ECHOCARDIOGRAM Patient Name: OLAF CROFT JOHNPatient ID: [id number] : [id number] Date: 07/12/2021 7:18:11 AM Gender: MAccession #: [id number] Tech: KPLocation: [id number] Ref.Provider: ROSENDO ALBERTSHeight(Cm): 183 BSA: Weight(Kg): 105.23 [...] test (07/12/2021 7:57 AM CDT) Acceptable Yes [facility] Blood 07/12/2021 7:57 AM CDT 07/12/2021 7:58 AM CDT N[facility]ative [facility] - 07/12/2021 7:58 AM CDT Name of Test->Phosphorus us Asha HOFF LAB BLOOD ORDERABLES Final Result [facility] [address] Department [place] [address] * Magnesium - Add on lab test (07/12/2021 7:57 AM CDT) Acceptable Yes [facility] Blood 07/12/2021 7:57 AM CDT 07/12/2021 7:58 AM CDT Narrative [facility] - 07/12/2021 7:58 AM CDT Name of Test->Magnesium us Asha HOFF LAB BLOOD ORDERABLES Final Result [facility] [address] Department [place] [address] * (ABNORMAL) Differential, auto (07/12/2021 7:46 AM CDT) Neutrophil abs 9.6(H) 1.7 - 6.5 K/cumm [facility] Imm gran abs 0.1 0.0 - 0.1 K/cumm [facility] Lymphocyte abs 2.0 0.8 - 3.3 K/cumm [facility] Monocyte abs 1.0(H) 0.2 - 0.8 K/cumm [facility] Eosinophil abs 0.0 0.0 - 0.5 K/cumm [facility] Basophil abs 0.0 0.0 - 0.1 K/cumm [facility] Neutrophil pct 75.2 % [facility] Comment: Interpretive Data Percent cell count reference ranges are not reported, since discordance with absolute values may lead to misinterpretation of CBC data. Current Interpretive Data was last revised on 2017. Imm gran pct 0.6 % [facility] Comment: Interpretive Data Percent cell count reference ranges are not reported, since discordance with absolute values may lead to misinterpretation of CBC data. Current Interpretive Data was last revised on 2017. Lymphocyte pct 16.0 % [facility] Comment: Interpretive Data Percent cell count reference ranges are not reported, since discordance with absolute values may lead to misinterpretation of CBC data. Current Interpretive Data was last revised on 2017. Monocyte pct 7.9 % [facility] Comment: Interpretive Data Percent cell count reference ranges are not reported, since discordance with absolute values may lead to misinterpretation of CBC data. Current Interpretive Data was last revised on 2017. Eosinophil pct 0.1 % [facility] Comment: Interpretive Data Percent cell count reference ranges are not reported, since discordance with absolute values may lead to misinterpretation of CBC data. Current Interpretive Data was last revised on 2017. Basophil pct 0.2 % [facility] Comment: Interpretive Data Percent cell count reference ranges are not reported, since discordance with absolute values may lead to misinterpretation of CBC data. Current Interpretive Data was last revised on 2017. Blood 07/12/2021 7:46 AM CDT 07/12/2021 8:11 AM CDT us Asha HOFF LAB BLOOD ORDERABLES Final Result Performing Organization Address City/[facility] Co de Phone Number [facility] [address] Department [place] [address] * (ABNORMAL) CBC with auto differential (07/12/2021 7:46 AM CDT) WBC 12.7(H) 3.8 - 9.9 K/cumm [facility] Hgb 12.5(L) 13.0 - 17.5 g/dL [facility] Hct 36.6(L) 38.9 - 50.3 % [facility] Plt 201 150 - 400 K/cumm [facility] MPV 10.9 9.1 - 12.3 fL [facility] RBC 3.98(L) 4.30 - 5.80 M/cumm [facility] MCV 92.0 81.3 - 96.4 fL [facility] MCH 31.4 27.1 - 33.3 pg [facility] MCHC 34.2 32.3 - 35.7 g/dL [facility] RDW CV 12.7 11.1 - 14.9 % [facility] RDW SD 42.7 35.7 - 48.1 fL [facility] NRBC abs 0.00 0.00 - 0.01 K/cumm [facility] Blood 07/12/2021 7:46 AM CDT 07/12/2021 8:11 AM CDT Asha HOFF LAB BLOOD ORDERABLES Final Result Performing Organization Address City/[facility] Co de Phone Number [facility] [address] Department [place] [address] * Sepsis Lactate w/ Reflex (07/12/2021 7:46 AM CDT) Pathologist [facility] Sepsis Lactate 1.5 0.7 - 2.0 mmol/L [facility] Blood 07/12/2021 7:46 AM CDT 07/12/2021 7:58 AM CDT us Asha HOFF LAB BLOOD ORDERABLES Final Result Performing Organization Address [facility] de Phone Number [facility] [address] [facility] [place] [address] * POCT glucose (07/12/2021 7:29 AM CDT) [facility] Glucose, POC 125 70 - 140 mg/dL [facility] Comment: For Glucose values <35 mg/dl when Hematocrit is >60 mg/dl,the test may not accurately detect significant hypoglycemia,and testing in the Laboratory should be considered if clinically indicated. Blood 07/12/2021 7:29 AM CDT 07/12/2021 7:29 AM CDT us Rosendo Alberts MD LAB POCT ORDERABLES - DEVICE Fin al Result Performing Organization Address [facility] Co de Phone Number [facility] [address] Department [place] [address] * ECG 12 lead (07/12/2021 7:21 AM CDT) 07/12/2021 7:21 AM CDT Narrative [facility] - 07/12/2021 2:11 PM CDT Vent Rate: 179 bpm RR Interval: 334 msec NM Interval: 0 msec QRS Duration: 91 msec QT Interval: 249 msec QTC Interval: 344 msec P-R-T [place]: 0 - 2 - 0 degrees SUPRAVENTRICULAR TACHYCARDIA NONSPECIFIC ST \T\ T-WAVE ABNORMALITY CRITICAL TEST RESULT Electronically Signed By: Cynthia Jones MD, [facility] us Rosendo Alberts MD ECG ORDERABLES Final Result Performing Organization Address City/[facility]/ZIP Co de Phone Number [facility] * Magnesium (07/12/2021 6:35 AM CDT) Pathologist [facility] Magnesium 1.8 1.4 - 2.5 mg/dL [facility] Blood 07/12/2021 6:35 AM CDT 07/12/2021 6:54 AM CDT Asha OHFF LAB BLOOD ORDERABLES Final Result Performing Organization Address [facility] Co de Phone Number [facility] [address] Department [place] [place] [address] * Phosphorus (07/12/2021 6:35 AM CDT) [facility] Phosphorus, pl 3.3 2.3 - 4.5 mg/dL [facility] Blood 07/12/2021 6:35 AM CDT 07/12/2021 6:54 AM CDT us Asha HOFF LAB BLOOD ORDERABLES Final Result Performing Organization Address [facility] Co de Phone Number [facility] [address] Department [place] [address] * eGFR (07/12/2021 6:35 AM CDT) Pathologist [facility] eGFR 68 mL/min/1.7 3 m2 [facility] Comment: Interpretive Data Reference Interval Normal ?>/= [...] KING LAB BLOOD ORDERABLES Final Resul t [facility] [address] Department [place] [address] * Basic metabolic panel (07/12/2021 6:35 AM CDT) Sodium 138 135 - 145 mmol/L [facility] Potassium, pl 3.7 3.3 - 4.9 mmol/L [facility] Chloride 102 97 - 110 mmol/L [facility] CO2 26 22 - 32 mmol/L [facility] Anion gap 10 2 - 15 mmol/L [facility] BUN 12 8 - 25 mg/dL [facility] Creatinine 1.07 0.80 - 1.30 mg/dL [facility] Glucose 115 70 - 199 mg/dL [facility] Comment: Interpretive Data Fasting glucose >/= 126 [...] 2017. Calcium 9.1 8.5 - 10.3 mg/dL [facility] Blood 07/12/2021 6:35 AM CDT 07/12/2021 6:54 AM CDT us Rosendo Alberts MD LAB BLOOD ORDERABLES Final Resul t Performing Organization Address City/[facility]/ZIP Co de Phone Number [facility] [address] Department [place] [address] * ECG 12 lead (07/11/2021 5:41 PM CDT) 07/11/2021 5:41 PM CDT Narrative [facility] - 07/12/2021 1:39 PM CDT Vent Rate: 55 bpm RR Interval: 1072 msec NM Interval: 144 msec QRS Duration: 94 msec QT Interval: 406 msec QTC Interval: 396 msec P-R-T [place]: -3 - 19 - 6 degrees SINUS BRADYCARDIA WITH MARKED SINUS ARRHYTHMIA ST ELEVATION V2 through V6, PROBABLY EARLY REPOLARIZATION; clinical correlation advised BORDERLINE ECG Electronically Signed By: Cynthia Jones MD, [facility] us Rosendo Alberts MD ECG ORDERABLES Final Result Performing Organization Address [facility] de Phone Number [facility] [facility] * CESAR MAJOR CORONARY (07/11/2021 5:12 PM CDT) Anatomical Region Laterality Modality X-Ray Angiograph y Narrative 07/11/2021 5:29 PM CDT [facility] Cardiology ?? [id number] [place], [place], [address] ?? IVUS and FLORIST PCI Procedure Report 75 year old male with CAD and dyspnea referred for FLORIST PCI. Access:7F Right Femoral Artery and 7F Right Radial Artery Catheter:CLS3.5 Guide, 7F AL1 Guide Injection:Left Main Trunk and Right Coronary Artery Closure:TR band and Perclose Anticoagulation:[id number] Heparin, Clopidogrel and Aspirin Air Kerma:2385 mGy Fluoro time:39 min Contrast:250 ml Optiray Sedation:2mg Versed, 100 mcg fentanyl Procedural details: After risks, benefits, and alternatives to the procedure were explained to the patient, they agreed to proceed. ??After signing informed consent the patient was brought to the cardiac catheterization laboratory. ??There were prepped and draped in sterile fashion. A 7 Bahraini sheath was inserted in the Right Femoral Artery and Right Radial Artery using the modified Seldinger technique with ultrasound guidance. ??We then performed dual selective coronary angiography using various catheters. ??We then performed IVUS and PCI of the LAD, IVUS and PCI of the Right PDA FLORIST, and PCI of the Right PVB using [...] XT to the distal PDA through the FLORIST via a MC. ??IVUS showed diffuse atherosclerosis. [...] IVUS guided PCI of the Right PDA FLORIST, IVUS guided PCI of the LAD, and PCI of the Right PVB using 4 total stents. ??Continue aspirin 81 mg indefinitely. ??300mg Clopidogrel given in the lab coordinator. ??Continue 75mg daily for at least 1 year without interruption. ??Continue to optimize medical therapy and reduce atherosclerotic risk factors. Further management per the medicine and cardiology teams. Rosendo Alberts MD 07/11/2021 5:14 PM us Rosendo Alberts MD CV CARDIAC CATH PROCEDURES Final Result * (ABNORMAL) POC Activated Clotting Time, High Range (07/11/2021 4:33 PM CDT) ACT 313(H) 87 - 138 sec [facility] Blood 07/11/2021 4:33 PM CDT 07/11/2021 4:33 PM CDT us Rosendo Alberts MD LAB BLOOD ORDERABLES Final Resul t Performing Organization Address City/[facility]/ZIP Co de Phone Number [facility] [address] [employer] [place], [place] [id number] * (ABNORMAL) POC Activated Clotting Time, High Range (07/11/2021 4:07 PM CDT) ACT 215(H) 87 - 138 sec [facility] Blood 07/11/2021 4:07 PM CDT 07/11/2021 4:07 PM CDT us Rosendo Alberts MD LAB BLOOD ORDERABLES Final Resul t [facility] [address] Department [place] [address] * Differential, auto (07/11/2021 9:21 AM CDT) Neutrophil abs 4.7 1.7 - 6.5 K/cumm [facility] Imm gran abs 0.0 0.0 - 0.1 K/cumm [facility] Lymphocyte abs 1.4 0.8 - 3.3 K/cumm [facility] Monocyte abs 0.6 0.2 - 0.8 K/cumm [facility] Eosinophil abs 0.1 0.0 - 0.5 K/cumm [facility] Basophil abs 0.0 0.0 - 0.1 K/cumm [facility] Neutrophil pct 69.7 % [facility] Comment: Interpretive Data Percent cell count reference ranges are not reported, since discordance with absolute values may lead to misinterpretation of CBC data. Current Interpretive Data was last revised on 2017. Imm gran pct 0.4 % [facility] Comment: Interpretive Data Percent cell count reference ranges are not reported, since discordance with absolute values may lead to misinterpretation of CBC data. Current Interpretive Data was last revised on 2017. Lymphocyte pct 20.2 % [facility] Comment: Interpretive Data Percent cell count reference ranges are not reported, since discordance with absolute values may lead to misinterpretation of CBC data. Current Interpretive Data was last revised on 2017. Monocyte pct 8.6 % [facility] Comment: Interpretive Data Percent cell count reference ranges are not reported, since discordance with absolute values may lead to misinterpretation of CBC data. Current Interpretive Data was last revised on 2017. Eosinophil pct 0.7 % [facility] Comment: Interpretive Data Percent cell count reference ranges are not reported, since discordance with absolute values may lead to misinterpretation of CBC data. Current Interpretive Data was last revised on 2017. Basophil pct 0.4 % [facility] Comment: Interpretive Data Percent cell count reference ranges are not reported, since discordance with absolute values may lead to misinterpretation of CBC data. Current Interpretive Data was last revised on 2017. Blood 07/11/2021 9:21 AM CDT 07/11/2021 9:21 AM CDT us Rosendo Alberts MD LAB BLOOD ORDERABLES Final Resul t Performing Organization Address [facility] Co de Phone Number [facility] [address] Department [place] [address] * CBC with auto differential (07/11/2021 9:21 AM CDT) [facility] WBC 6.8 3.8 - 9.9 K/cumm [facility] Hgb 13.7 13.0 - 17.5 g/dL [facility] Hct 41.8 38.9 - 50.3 % [facility] Plt 200 150 - 400 K/cumm [facility] MPV 11.0 9.1 - 12.3 fL [facility] RBC 4.46 4.30 - 5.80 M/cumm [facility] MCV 93.7 81.3 - 96.4 fL [facility] MCH 30.7 27.1 - 33.3 pg [facility] MCHC 32.8 32.3 - 35.7 g/dL [facility] RDW CV 12.5 11.1 - 14.9 % [facility] RDW SD 42.9 35.7 - 48.1 fL [facility] NRBC abs 0.00 0.00 - 0.01 K/cumm [facility] Blood 07/11/2021 9:21 AM CDT 07/11/2021 9:21 AM CDT us Rosendo Alberts MD LAB BLOOD ORDERABLES Final Resul t Performing Organization Address [facility]/ZIP Co de Phone Number [facility] [address] Department [place] [address] * eGFR (07/11/2021 9:08 AM CDT) Pathologist [facility] eGFR 71 mL/min/1.7 3 m2 [facility] Comment: Interpretive Data Reference Interval Normal ?>/= [...] MD LAB BLOOD ORDERABLES Final Resul t [facility] [address] Department [place] [address] * Basic metabolic panel (07/11/2021 9:08 AM CDT) Sodium 142 135 - 145 mmol/L [facility] Potassium, pl 4.0 3.3 - 4.9 mmol/L [facility] Chloride 107 97 - 110 mmol/L [facility] CO2 26 22 - 32 mmol/L [facility] Anion gap 9 2 - 15 mmol/L [facility] BUN 11 8 - 25 mg/dL [facility] Creatinine 1.03 0.80 - 1.30 mg/dL [facility] Glucose 96 70 - 199 mg/dL [facility] Comment: Interpretive Data Fasting glucose >/= 126 [...] 2017. Calcium 9.5 8.5 - 10.3 mg/dL [facility] Blood 07/11/2021 9:08 AM CDT 07/11/2021 9:20 AM CDT us Rosendo Alberts MD LAB BLOOD ORDERABLES Final Resul t [facility] [address] Department [place] [address] documented in this encounter Visit Diagnoses Diagnosis [...] 07/11/2021 documented in this encounter Care Teams Paper Counter Relationship Specialty Start Date End Date Nolberto Humphrey DO PCP - General Internal Medicine 05/03/21 11/19/22 documented as of this encounter
--- OUTSIDE RECORDS SUMMARY | 2024-08-26 06:52 | XMS_ITS | Encounter Summary ---
Author Organization [facility] Address [address] [place] [address] Phone Care Team Providers Care Ibm Mainframe Systems Programmer Name Role Phone Olaf Carvajal MD Primary Care Provider [phone] Reason for Visit * Reason Onset Date Comments Rita HOFF 11/03/2018 Encounter Details Date Type Department Care Team (Late st Contact Info) Description 11/03/2018 Documentation [facility] Neuro Sleep [address] 6th [address] [place] [address] Idalmis Au RN Gralise PA Social History Tobacco Use Types Packs/Day Years Used Date Smoking Tobacco: Former Smokeless Tobacco: Never Alcohol Use Standard Drinks/Week Comments Yes 0 (1 standard drink = 0.6 oz pur e alcohol) Sex and Gender Information Value Date Recorded Sex Assigned at Not on file Legal Sex Male 2:20 PM GEOMAGNETICIAN Gender Identity Not on file Sexual Orientation Straight 07/05/2021 1: 06 PM CDT documented as of this encounter Progress Notes * Idalmis Au RN - 11/03/2018 1:27 PM CST Initiated Rita HOFF through [employer]. AGNETICIAN documented in this encounter Plan of Treatment Not on file documented as of this encounter Visit Diagnoses Not on filedocumented in this encounter Care Teams Ibm Mainframe Systems Programmer Relationship Specialty Start Date End Date Olaf Carvajal MD [address] [place] [address] PCP - General 11/03/12 05/02/21 documented as of this encounter
--- OUTSIDE RECORDS SUMMARY | 2024-08-26 06:52 | XMS_ITS | Encounter Summary ---
Author Organization [facility] Address [address] [place] [address] Care Team Providers Care Scroll Saw Operator Name Role Phone Nolberto Humphrey DO Primary Care Provider [phone] Reason for Visit * Reason Onset Date Comments Test set up 06/12/2021 Encounter Details Date Type Department Care Team (Late st Contact Info) Description 06/12/2021 Telephone [facility] Cardiology [address] [place] [address] Efren Sawyer MD [address] [place] [address] Test set up Social History Tobacco Use Types Packs/Day Years Used Date Smoking Tobacco: Former Smokeless Tobacco: Never Alcohol Use Standard Drinks/Week Comments Yes 0 (1 standard drink = 0.6 oz pur e alcohol) Sex and Gender Information Value Date Recorded Sex Assigned at Not on file Legal Sex Male 2:20 PM CHIEF II DISPATCHER Gender Identity Not on file Sexual Orientation [...] proceed with procedure. LHC scheduled. Sending to [facility] as FYI * Telephone Encounter - Yola Louis MA - 06/12/2021 11:05 AM CDT Patient is calling and would like to set up the test the was originally offer to him after his stress test but he does not remember what it was. Patient can be reached at [phone] documented in this encounter Plan of Treatment Not on file documented as of this encounter Visit Diagnoses Not on filedocumented in this encounter Care Teams Scroll Saw Operator Relationship Specialty Start Date End Date Nolberto Humphrey DO PCP - General Internal Medicine 05/03/21 11/19/22 documented as of this encounter
--- OUTSIDE RECORDS SUMMARY | 2024-08-26 06:52 | XMS_ITS | Encounter Summary ---
Author Organization [facility] Address [address] [place] [address] Phone Care Team Providers Care Mobile Qa Tester Name Role Phone Olaf Carvajal MD Primary Care Provider [phone] Encounter Details Date Type Department Care Team (Late st Contact Info) Description 11/04/2020 Documentation [facility] Neuro Sleep [address] [place] [address] 6th [address] [place] [address] Rupinder Villeda [facility] Social History Tobacco Use Types Packs/Day Years Used Date Smoking Tobacco: Former Smokeless Tobacco: Never Alcohol Use Standard Drinks/Week Comments Yes 0 (1 standard drink = 0.6 oz pur e alcohol) Sex and Gender Information Value Date Recorded Sex Assigned at Not on file Legal Sex Male 2:20 PM PROJECT MANAGEMENT INTERN Gender Identity Not on file Sexual Orientation Straight 07/05/2021 1: 06 PM CDT documented as of this encounter Progress Notes * Rupinder Villeda MA - 11/04/2020 12:49 PM CST No data. Called sheila felix and saida Auguste pt cancelled CPAP order on 11/03/19 with Thelma ECT MANAGEMENT INTERN documented in this encounter Plan of Treatment Not on file documented as of this encounter Visit Diagnoses Not on filedocumented in this encounter Care Teams Mobile Qa Tester Relationship Specialty Start Date End Date Olaf Carvajal MD [address] [place] [address] PCP - General 11/03/12 05/02/21 documented as of this encounter
--- OUTSIDE RECORDS SUMMARY | 2024-08-26 06:52 | XMS_ITS | Encounter Summary ---
Author Organization 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
--- OUTSIDE RECORDS SUMMARY | 2024-08-26 06:52 | XMS_ITS | Encounter Summary ---
Author Organization [facility] Address [address] [place] [address] Care Team Providers Care Fur Machine Operator Name Role Phone Nolberto Humphrey DO Primary Care Provider [phone] Encounter Details Date Type Department Care Team (Late st Contact Info) Description 07/04/2021 Telephone [facility] Medical [facility] Cardiology [address] [place] [address] Rosendo Silva MD [address] [place] [address] Social History Tobacco Use Types Packs/Day Years Used Date Smoking Tobacco: Former Smokeless Tobacco: Never Alcohol Use Standard Drinks/Week Comments Yes 0 (1 standard drink = 0.6 oz pur e alcohol) Sex and Gender Information Value Date Recorded Sex Assigned at Not on file Legal Sex Male 2:20 PM BANKING SERVICES ADVISOR Gender Identity Not on file Sexual Orientation Straight 07/05/2021 1: 06 PM CDT documented as of this encounter Miscellaneous Notes * Telephone Encounter - Macy Chan - 07/05/2021 10:02 AM CDT Spoke with pt and he is scheduled for 07/11/21 at 10am, arriving at 9am. Pt verbalized understandingof instructions. Orders in. Marked on provider schedules and scheduled with lab animal technician. * Telephone Encounter - Macy Chan [...] patient of Dr. Sawyer's be scheduled for FLIGHT TECHNICIAN consultation or cath? documented in this encounter Plan of Treatment Not on file documented as of this encounter Visit Diagnoses Not on filedocumented in this encounter Care Teams Fur Machine Operator Relationship Specialty Start Date End Date Nolberto Humphrey DO PCP - General Internal Medicine 05/03/21 11/19/22 documented as of this encounter
--- OUTSIDE RECORDS SUMMARY | 2024-08-26 06:52 | XMS_ITS | Encounter Summary ---
Author Organization [facility] Address [address] [place] [address] Phone Care Team Providers Care Pig Iron Loader Name Role Phone Olaf Carvajal MD Primary Care Provider [phone] Reason for Visit * Reason Onset Date Comments Catelise denial 03/10/2020 Encounter Details Date Type Department Care Team (Late st Contact Info) Description 03/10/[address] [facility] Neuro Sleep [address] 6th [address] [place] [address] Idalmis Au RN Gralise denial Social History Tobacco Use Types Packs/Day Years Used Date Smoking Tobacco: Former Smokeless Tobacco: Never Alcohol Use Standard Drinks/Week Comments Yes 0 (1 standard drink = 0.6 oz pur e alcohol) Sex and Gender Information Value Date Recorded Sex Assigned at Not on file Legal Sex Male 2:20 PM SALES COMMUNICATIONS MANAGER Gender Identity Not on file Sexual Orientation Straight 07/05/2021 1: 06 PM CDT documented as of this encounter Progress Notes * Idalmis Au RN - 03/10/2020 1:49 PM CDT Routed Rita rooneyial to Dr Castillo. documented in this encounter Plan of Treatment Not on file documented as of this encounter Visit Diagnoses Not on filedocumented in this encounter Care Teams Pig Iron Loader Relationship Specialty Start Date End Date Olaf Carvajal MD [address] [place] [address] PCP - General 11/03/12 05/02/21 documented as of this encounter
--- OUTSIDE RECORDS SUMMARY | 2024-08-26 06:52 | XMS_ITS | Encounter Summary ---
Author Organization [facility] Address [address] [place] [address] Care Team Providers Care E Commerce Retailer Name Role Phone Nolberto Humphrey DO Primary Care Provider [phone] Encounter Details Date Type Department Care Team (Latest Contact Info) Description 06/30/2021 - 06/30/2021 11:59 PM CDT Hospital Encounter [facility] - Imaging [phone] Discharge Disposition: Discharge to home or self care Social History Tobacco Use Types Packs/Day Years Used Date Smoking Tobacco: Former Smokeless Tobacco: Never Alcohol Use Standard Drinks/Week Comments Yes 0 (1 standard drink = 0.6 oz pur e alcohol) Sex and Gender Information Value Date Recorded Sex Assigned at Not on file Legal Sex Male 2:20 PM CHAINER Gender Identity Not on file Sexual Orientation [...] Outside Reference (06/30/2021 12:00 AM CDT) Narrative [facility]PACS_OUTSIDE_FILM_[facility] - 07/04/2021 2:27 PM CDT This order has been auto-finalized and does not contain a result. us Not In File Miscellaneous IMG XR PROCEDURES Zayda l Result Performing Organization Address City/State/ZIP Co fl Phone Number [facility]PACS[facility]OUTSIDE[facility]FIL[facility] documented in this encounter Visit Diagnoses Not on filedocumented in this encounter Care Teams E Commerce Retailer Relationship Specialty Start Date End Date Nolberto Humphrey DO PCP - General Internal Medicine 05/03/21 11/19/22 documented as of this encounter
--- OUTSIDE RECORDS SUMMARY | 2024-08-26 06:52 | XMS_ITS | Encounter Summary ---
Author Organization [facility] Address [address] [place] [address] Phone Care Team Providers Care Crime Scene Photographer Name Role Phone Olaf Carvajal MD Primary Care Provider [phone] Encounter Details Date Type Department Care Team (Late st Contact Info) Description 10/28/2018 Telephone [facility] Neuro Sleep [address] [place] [address] 6th [address] [place] [address] Cindy Churchill RMA Social History Tobacco Use Types Packs/Day Years Used Date Smoking Tobacco: Former Smokeless Tobacco: Never Alcohol Use Standard Drinks/Week Comments Yes 0 (1 standard drink = 0.6 oz pur e alcohol) Sex and Gender Information Value Date Recorded Sex Assigned at Not on file Legal Sex Male 2:20 PM BAKERY DEMONSTRATOR Gender Identity Not on file Sexual Orientation Straight 07/05/2021 1: 06 PM CDT documented as of this encounter Miscellaneous Notes * Telephone Encounter - Cindy Oakley MA - 10/28/2018 1:39 PM BAKERY DEMONSTRATOR Patient called to report 300 mg GPB update. He took one tab and after 7 days he went another 600, dixzziness, headachce , 600 one tabel and it was ok. need script RY DEMONSTRATOR documented in this encounter Plan of Treatment Not on file documented as of this encounter Visit Diagnoses Not on filedocumented in this encounter Care Teams Crime Scene Photographer Relationship Specialty Start Date End Date Olaf Carvajal MD [address] [place] [address] PCP - General 11/03/12 05/02/21 documented as of this encounter
--- OUTSIDE RECORDS SUMMARY | 2024-08-26 06:52 | XMS_ITS | Encounter Summary ---
Author Organization [facility] Address [address] [place] [address] Phone Care Team Providers Care Global Consumer Sector Vice President Name Role Phone Olaf Carvajal MD Primary Care Provider [phone] Reason for Visit * Reason Onset Date Comments Gralise 03/02/2020 Encounter Details Date Type Department Care Team (Late st Contact Info) Description 03/02/2020 Telephone [facility] Neuro Sleep [address] 6th [address] [place] [address] Idalmis Au RN Gralise Social History Tobacco Use Types Packs/Day Years Used Date Smoking Tobacco: Former Smokeless Tobacco: Never Alcohol Use Standard Drinks/Week Comments Yes 0 (1 standard drink = 0.6 oz pur e alcohol) Sex and Gender Information Value Date Recorded Sex Assigned at Not on file Legal Sex Male 2:20 PM ADOBE ARCHITECT Gender Identity Not on file Sexual [...] on filedocumented in this encounter Care Teams Global Consumer Sector Vice President Relationship Specialty Start Date End Date Olaf Carvajal MD [address] [place] [address] PCP - General 11/03/12 05/02/21 documented as of this encounter
--- OUTSIDE RECORDS SUMMARY | 2024-08-26 06:52 | XMS_ITS | Encounter Summary ---
Author Organization [facility] Address [address] [place] [address] Care Team Providers Care Spectral Scientist Name Role Phone Nolberto Humphrey DO Primary Care Provider [phone] Encounter Details Date Type Department Care Team (Late st Contact Info) Description 06/30/2021 Orders Only [facility] Cardiology [address] [place] [address] Efren Sawyer MD [address] [place], [place] [address] Social History Tobacco Use Types Packs/Day Years Used Date Smoking Tobacco: Former Smokeless Tobacco: Never Alcohol Use Standard Drinks/Week Comments Yes 0 (1 standard drink = 0.6 oz pur e alcohol) Sex and Gender Information Value Date Recorded Sex Assigned at Not on file Legal Sex Male 2:20 PM SAS PROGRAMMER REMOTE Gender Identity Not on file Sexual Orientation [...] on filedocumented in this encounter Care Teams Spectral Scientist Relationship Specialty Start Date End Date Nolberto Humphrey DO PCP - General Internal Medicine 05/03/21 11/19/22 documented as of this encounter
--- OUTSIDE RECORDS SUMMARY | 2024-08-26 06:52 | XMS_ITS | Encounter Summary ---
Author Organization [facility] Address [address] [place] [address] Phone Care Team Providers Care Chief Radiation Therapist Name Role Phone Olaf Carvajal MD Primary Care Provider [phone] Encounter Details Date Type Department Care Team [...] on file Legal Sex Male 2:20 PM PROPERTY LOSS INSURANCE CLAIM ADJUSTER Gender Identity Not on file Sexual Orientation [...] on filedocumented in this encounter Care Teams Chief Radiation Therapist Relationship Specialty Start Date End Date Olaf Carvajal MD [address] [place] [address] PCP - General 11/03/12 05/02/21 documented as of this encounter
--- OUTSIDE RECORDS SUMMARY | 2024-08-26 06:52 | XMS_ITS | Encounter Summary ---
Author Organization [facility] Address [address] [facility] [address] [place] [address] Care Team Providers Care Pump Service Supervisor Name Role Phone Nolberto Humphrey Primary Care Provider [phone] Reason for Visit * Cardiology (Routine) - Closed Specialty Diagnoses / Procedures Referred By Contac t Referred To Contact Diagnoses Shortness of breath Procedures Echo Exercise Stress W Doppler/CF Efrne Sawyer MD [address] [address] Phone: tel: fax: [facility] Referral ID Status Reason Start Date Expiration Date Visits Re quested Visits Authorized [id number] Closed 05/09/2021 06/08/2022 1 1 Encounter Details Date Type Department Care Team (Latest Contact Info) Description 06/08/2021 8:15 AM CDT Ancillary Procedure [facility] Cardiology [address] [place] [phone] Shortness of breath Social History Tobacco Use Types Packs/Day Years Used Date Smoking Tobacco: Former Smokeless Tobacco: Never Alcohol Use Standard Drinks/Week Comments Yes 0 (1 standard drink = 0.6 oz pur e alcohol) Sex and Gender Information Value Date Recorded Sex Assigned at Not on file Legal Sex Male 2:20 PM MACHINE STRAP BUCKLER Gender Identity Not on file Sexual Orientation [...] AM CDT Narrative 06/08/2021 12:41 PM CDT [facility] Cardiology [address], [place] [address] [address], [place] [address] P:[phone] P:[phone] Echocardiographic Report Patient Name: OLAF NEWELL : 1945 Study Date: 06/08/2021 8:02:46 AM Gender: M Tech: Location: ID Ref.Provider: EFREN SAWYER Height(Cm): 183 BSA: 2.31 [...] BP - 180/70. Rate Pressure Product - 51277. METS Achieved - 7.00. Percent Predicted Maximal HR Achieved - 96 %. Interpretation Site: Exam was interpreted at [facility]. Performance: Average exercise functional capacity. Hemodynamic [...] BP - 180/70. Rate Pressure Product - 18819. METS Achieved - 7.00. Percent Predicted Maximal [...] ischemia. Electronically Signed By: Efren Sawyer MD, [facility] 2021-06-08 12:41:16 CDT Procedure Note Efren Sawyer MD - 06/08/2021 [facility] Cardiology [address] [facility] [address], [place] [address] [address] [facility] [address], [place] [address] P:[phone] P:[phone] Echocardiographic Report Patient Name: OLAF NEWELLPatient ID: [id number] : [id number] Date: 06/08/2021 8:02:46 AM Gender: MAccession #: [id number] Tech: GMLocation: [place] Ref.Provider: EFREN SAWYERHeight(Cm): 183 [...] BP - 180/70. Rate Pressure Product - 34022. METS Achieved - 7.00.Percent Predicted Maximal HR Achieved - 96 %. Interpretation Site: Exam was interpreted at [facility]. Performance: Average exercise functional capacity. Hemodynamic [...] BP - 180/70. Rate Pressure Product - 31502. METS Achieved - 7.00.Percent Predicted Maximal HR [...] ischemia. Electronically Signed By: Efren Sawyer MD, [facility] 2021-06-08 12:41:16 CDT us Efren Sawyer MD [...] 06/08/2021 documented in this encounter Care Teams Pump Service Supervisor Relationship Specialty Start Date End Date Nolberto Humphrey DO PCP - General Internal Medicine 05/03/21 11/19/22 documented as of this encounter
--- OUTSIDE RECORDS SUMMARY | 2024-08-26 06:52 | XMS_ITS | Encounter Summary ---
Author Organization [facility] Address [address] [place] [address] Phone Care Team Providers Care Engineering Agent Name Role Phone Olaf Carvajal MD Primary Care Provider [phone] Reason for Visit * Reason Onset Date Comments DME order-supplies 10/27/2019 Encounter Details Date Type Department Care Team (Late st Contact Info) Description 10/27/2019 Documentation [facility] Neuro Sleep [address] [facility] 6th Floor [address] [place] [address] Idalmis Au RN DME order-supplies Social History Tobacco Use Types Packs/Day Years Used Date Smoking Tobacco: Former Smokeless Tobacco: Never Alcohol Use Standard Drinks/Week Comments Yes 0 (1 standard drink = 0.6 oz pur e alcohol) Sex and Gender Information Value Date Recorded Sex Assigned at Not on file Legal Sex Male 2:20 PM PLAYER DEVELOPMENT MANAGER Gender Identity Not on file Sexual Orientation Straight 07/05/2021 1: 06 PM CDT documented as of this encounter Progress Notes * Idalmis Au RN - 10/27/2019 8:17 AM CST Faxed DME order to [facility] with all necessary documents. Order scanned with fax confirmation page. ER DEVELOPMENT MANAGER documented in this encounter Plan of Treatment Not on file documented as of this encounter Visit Diagnoses Not on filedocumented in this encounter Care Teams Engineering Agent Relationship Specialty Start Date End Date Ketchum, Olaf M., MD [address] [place] [address] PCP - General 11/03/12 05/02/21 documented as of this encounter
--- OUTSIDE RECORDS SUMMARY | 2024-08-26 06:52 | XMS_ITS | Encounter Summary ---
Author Organization [facility] Address [address] [facility] [address] [place] [address] Care Team Providers Care Web Site Admin Name Role Phone Nolberto Humphrey DO Primary Care Provider [phone] Reason for Referral * Cardiology (Routine) - Closed Specialty Diagnoses / Procedures Referred By Jonna chance Referred To Contact Diagnoses Shortness of breath Procedures Echo Exercise Stress W Doppler/CF Efren Sawyer MD [address] [email or web address] [address] [address] Phone: tel: fax: [facility] Referral ID Status Reason Start Date Expiration Date Visits Re quested Visits Authorized [id number] Closed 05/09/2021 06/08/2022 1 1 Reason for Visit * Reason Comments New Patient SOB * Consultation (Routine) - Closed Specialty Diagnoses / Procedures Referred By Controsa t Referred To Contact Cardiology Diagnoses Shortness of breath Nolberto Humphrey DO Phone: tel: fax: [facility] Cardiology [address] [address] Phone: tel: fax: Referral ID Status Reason Start Date Expiration Date V isits Requested Visits Authorized [id number] Closed Specialty Services Required 05/08/2021 05/08/2022 6 6 Encounter Details Date Type Department Care Team (Late st Contact Info) Description 05/09/2021 4:15 PM CDT Office Visit [facility] Cardiology [address] [place] [address] Efren Sawyer MD [address] [place] [address] SOB (shortness of breath); Shortness of breath Social History Tobacco Use Types Packs/Day Years Used Date Smoking Tobacco: Former Smokeless Tobacco: Never Alcohol Use Standard Drinks/Week Comments Yes 0 (1 standard drink = 0.6 oz pur e alcohol) Sex and Gender Information Value Date Recorded Sex Assigned at Not on file Legal Sex Male 2:20 PM EAP CLINICIAN Gender Identity Not on file Sexual Orientation [...] because of his back. 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 MEDICAL HISTORY Past Medical History: Diagnosis Date [...] and Family: Not on file ??? Attends [employer] Services: Not on file ??? Active Member [...] breath) LIPID PANEL Routine 10/25/2020 9:36 AM EAP CLINICIAN documented in this encounter Results * STRESS ECHO EXERCISE WO DOPPLER/CF W CONTRAST (06/08/2021 9:16 AM CDT) Anatomical Region Laterality Modality Ultrasound 06/08/2021 8:02 AM CDT Narrative 06/08/2021 12:41 PM CDT [facility] Cardiology [address] [facility] [address], [place] [address] [address] [facility] [address], [place] [address] P:[phone] P:[phone] Echocardiographic Report Patient Name: OLAF NEWELL : [...] BP - 180/70. Rate Pressure Product - 73509. METS Achieved - 7.00. Percent Predicted Maximal HR Achieved - 96 %. Interpretation Site: Exam was interpreted at [facility]. Performance: Average exercise functional capacity. Hemodynamic Response: [...] BP - 180/70. Rate Pressure Product - 99069. METS Achieved - 7.00. Percent Predicted Maximal [...] ischemia. Electronically Signed By: Efren Sawyer MD, [facility] 2021-06-08 12:41:16 CDT Procedure Note Efren Sawyer MD - 06/08/2021 [facility] Cardiology [address] [facility] [address] [address] [address] [facility] [address], [address] [address] P:[phone] P:[phone] Echocardiographic Report Patient Name: OLAF NEWELLPatient ID: [id number] : [id number] Date: 06/08/2021 8:02:46 AM Gender: MAccession #: [id number] Tech: GMLocation: [place] Ref.Provider: EFREN SAWYERHeight(Cm): 183 BSA: 2.31Weight(Kg): 109.32 [...] BP - 180/70. Rate Pressure Product - 92889. METS Achieved - 7.00.Percent Predicted Maximal HR Achieved - 96 %. Interpretation Site: Exam was interpreted at [facility]. Performance: Average exercise functional capacity. Hemodynamic Response: [...] BP - 180/70. Rate Pressure Product - 96910. METS Achieved - 7.00.Percent Predicted Maximal HR [...] ischemia. Electronically Signed By: Efren Sawyer MD, [facility] 2021-06-08 12:41:16 CDT us Efren Sawyer MD CV ECHO PROCEDURES Final Result * ECG 12 lead (05/09/2021) Efren Sawyer MD ECG ORDERABLES Final Re sult * (ABNORMAL) Lipid panel (10/25/2020 9:36 AM EAP CLINICIAN) SCRIBED Cholesterol, Total 192 0 - 200 EXTERNAL LAB SCRIBED HDL 54 40 - 100 EXTERNAL LAB SCRIBED LDL 111(A) 0 - 100 EXTERNAL LAB SCRIBED Triglycerides 159(A) 0 - 150 EXTERNAL LAB Blood specimen (specimen) 10/25/2020 9:36 AM EAP CLINICIAN us Historical Provider LAB BLOOD ORDERABLES Edit [...] 05/09/2021 documented in this encounter Care Teams Web Site Admin Relationship Specialty Start Date End Date Nolberto Humphrey DO PCP - General Internal Medicine 05/03/21 11/19/22 documented as of this encounter
--- OUTSIDE RECORDS SUMMARY | 2024-08-26 06:52 | XMS_ITS | Encounter Summary ---
Author Organization [facility] Address [address] [place] [address] Phone Care Team Providers Care Founding Partner Name Role Phone Olaf Carvajal MD Primary Care Provider [phone] Reason for Visit * Reason Onset Date Comments Test Results 03/03/2018 Encounter Details Date Type Department Care Team (Late st Contact Info) Description 03/03/2018 Documentation [facility] Neuro Sleep [address] [facility] 6th Floor [address] [place] [address] Светлана Castillo MD PhD [address] [place] [address] Test Results Social History Tobacco Use Types Packs/Day Years Used Date Smoking Tobacco: Former Smokeless Tobacco: Never Alcohol Use Standard Drinks/Week Comments Yes 0 (1 standard drink = 0.6 oz pur e alcohol) Sex and Gender Information Value Date Recorded Sex Assigned at Not on file Legal Sex Male 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
--- OUTSIDE RECORDS SUMMARY | 2024-08-26 06:52 | XMS_ITS | Encounter Summary ---
Author Organization [facility] Address [address] [place] [address] Phone Care Team Providers Care Tar Leveler Name Role Phone Olaf Carvajal MD Primary Care Provider [phone] Reason for Visit * Consultation (Routine) - Closed Specialty Diagnoses / Procedures Referred By Jonna chance Referred To Contact Neurology Diagnoses Obstructive sleep apnea syndrome Olaf Carvajal MD [address] [place] [address] Phone: tel: fax: [facility] (All Locations) Referral ID Status Reason Start Date Expiration Date V isits Requested Visits Authorized [id number] Closed Specialty Services Required 07/19/2020 08/18/2021 1 1 Encounter Details Date Type Department Care Team (Late st Contact Info) Description 11/07/2020 1:00 PM LAW ENFORCEMENT INSTRUCTOR Telemedicine [facility] Neuro Sleep [address] [facility] 6th Floor [address] [place] [phone] Светлана Castillo MD PhD [address] [place] [address] RLS (restless legs syndrome) (Primary Dx); Obstructive sleep apnea syndrome Social History Tobacco Use Types Packs/Day Years Used Date Smoking Tobacco: Former Smokeless Tobacco: Never Alcohol Use Standard Drinks/Week Comments Yes 0 (1 standard drink = 0.6 oz pur e alcohol) Sex and Gender Information Value Date Recorded Sex Assigned at Not on file Legal Sex Male 2:20 PM LAW ENFORCEMENT INSTRUCTOR Gender Identity Not on file Sexual Orientation Straight 07/05/2021 1: 06 PM CDT documented as of this encounter Progress Notes * Светлана Castillo MD PhD - 11/07/2020 1:00 PM CST This was a telemedicine visit with Olaf Newell alone which took place via Real-time video connection (InTouch, Zoom or similar). During the visit, I (the attending physician) was located in [place], the resident/fellow was located in [place], and the patient was located in [place]. I waswith the patient during the telehealth [...] a telephone or video visit during the [facility]. After being given an opportunity to [...] Name: OLAF NEWELL Medical Record Number (MRN): [id number] Date of (): 1945 Encounter Date: 11/07/2020 [...] at least 7 hours for sleep. He dnady also restart exercising which previously helped his [...] He does not nap during the day. Marsteller Sleepiness Scale is 11/24. 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 Светлана Castillo M.D., Ph.D. Vamp Cut Out Worker of Neurology Diplomate, [place] [employer] of Psychiatry and Neurology with added Qualifications in Sleep Medicine ENFORCEMENT INSTRUCTOR documented in this encounter Plan of [...] 11/07/2020 documented in this encounter Care Teams Tar Leveler Relationship Specialty Start Date End Date Olaf Carvajal MD [address] [place] [address] PCP - General 11/03/12 05/02/21 documented as of this encounter
--- OUTSIDE RECORDS SUMMARY | 2024-08-26 06:52 | XMS_ITS | Encounter Summary ---
Author Organization [facility] Address [address] [place] [address] Care Team Providers Care Director Agricultural Services Name Role Phone Olaf Carvajal MD Primary Care Provider [phone] Encounter Details Date Type Department Care Team (Late st Contact Info) Description 10/21/2020 Patient Self-Triage [facility] HealthCare/ Physicians [address] [place] [address] Aleks, Generic Provider [address] [place], [place] [id number] Social History Tobacco Use Types Packs/Day Years Used Date Smoking Tobacco: Former Smokeless Tobacco: Never Alcohol Use Standard Drinks/Week Comments Yes 0 (1 standard drink = 0.6 oz pur e alcohol) Sex and Gender Information Value Date Recorded Sex Assigned at Not on file Legal Sex Male 2:20 PM INTERDISCIPLINARY PROFESSOR Gender Identity Not on file Sexual Orientation Straight 07/05/2021 1: 06 PM CDT documented as of this encounter Plan of Treatment Not on file documented as of this encounter Visit Diagnoses Not on filedocumented in this encounter Care Teams Director Agricultural Services Relationship Specialty Start Date End Date Olaf Carvajal MD [address] [place] [address] PCP - General 11/03/12 05/02/21 documented as of this encounter
--- OUTSIDE RECORDS SUMMARY | 2024-08-26 06:52 | XMS_ITS | Encounter Summary ---
Author Organization [facility] Address [address] [place] [address] Phone Care Team Providers Care Heating Plant Superintendent Name Role Phone Olaf Carvajal MD Primary Care Provider [phone] Encounter Details Date Type Department Care Team (Late st Contact Info) Description 02/01/[address] [facility] Neuro Sleep [address] [facility] 6th Floor [address] [place] [phone] Cindy Churchill RMA Social History Tobacco Use Types Packs/Day Years Used Date Smoking Tobacco: Former Cigarettes Q uit: 09/09/1982 Alcohol Use Standard Drinks/Week Comments Yes 0 (1 standard drink = 0.6 oz pur e alcohol) Sex and Gender Information Value Date Recorded Sex Assigned at Not on file Legal Sex Male 2:20 PM LEARNING TECHNOLOGIES SPECIALIST Gender Identity Not on file Sexual [...] 02/14/2018 added in this encounter Care Teams Heating Plant Superintendent Relationship Specialty Start Date End Date Olaf Carvajal MD [address] [place] [address] PCP - General 11/03/12 05/02/21 documented as of this encounter
--- OUTSIDE RECORDS SUMMARY | 2024-08-26 06:52 | XMS_ITS | Encounter Summary ---
Author Organization [facility] Address [address] [facility] [address] [place] [address] Care Team Providers Care Assembler Fluorescent Lights Name Role Phone Nolberto Humphrey DO Primary Care Provider [phone] Encounter Details Date Type Department Care Team (Late st Contact Info) Description 07/04/2021 Telephone [facility] Cardiology [address] [place] [address] Efren Sawyer MD [address] [place], [place] [address] Social History Tobacco Use Types Packs/Day Years Used Date Smoking Tobacco: Former Smokeless Tobacco: Never Alcohol Use Standard Drinks/Week Comments Yes 0 (1 standard drink = 0.6 oz pur e alcohol) Sex and Gender Information Value Date Recorded Sex Assigned at Not on file Legal Sex Male 2:20 PM UNIT DIRECTOR Gender Identity Not on file Sexual Orientation Straight 07/05/2021 1: 06 PM CDT documented as of this encounter Miscellaneous Notes * Telephone Encounter - Jazmyne Fan RN - 07/04/2021 8:44 AM CDT amb documented in this encounter Plan of Treatment Not on file documented as of this encounter Visit Diagnoses Diagnosis Coronary artery disease involving bad river band heart, unspecified vessel or lesion type, unspecified whether angina present- Primary documented in this encounter Care Teams Assembler Fluorescent Lights Relationship Specialty Start Date End Date Nolberto Humphrey DO PCP - General Internal Medicine 05/03/21 11/19/22 documented as of this encounter
--- OUTSIDE RECORDS SUMMARY | 2024-08-26 06:52 | XMS_ITS | Encounter Summary ---
Author Organization [facility] Address [address] [place] [address] Phone Care Team Providers Care Clinical Trial Educator Name Role Phone Olaf Carvajal MD Primary Care Provider [phone] Encounter Details Date Type Department Care Team (Late st Contact Info) Description 11/17/2020 Telephone [facility] Neuro Sleep [address] [place] [address] 6th Floor [address] [place] [address] Syeda Carrillo CMA Social History Tobacco Use Types Packs/Day Years Used Date Smoking Tobacco: Former Smokeless Tobacco: Never Alcohol Use Standard Drinks/Week Comments Yes 0 (1 standard drink = 0.6 oz pur e alcohol) Sex and Gender Information Value Date Recorded Sex Assigned at Not on file Legal Sex Male 2:20 PM SEAM CHECKER Gender Identity Not on file Sexual Orientation Straight 07/05/2021 1: 06 PM CDT documented as of this encounter Miscellaneous Notes * Telephone Encounter - Syeda Carrillo CMA - 11/17/2020 5:00 PM CST Called patient on 11/14 and 11/17 to schedule in lab sleep study, sent a [employer] message to call for appointment. CHECKER documented in this encounter Plan of Treatment Not on file documented as of this encounter Visit Diagnoses Not on filedocumented in this encounter Care Teams Clinical Trial Educator Relationship Specialty Start Date End Date Olaf Carvajal MD [address] [place] [address] PCP - General 11/03/12 05/02/21 documented as of this encounter
[2024-08-26 07:05] LABS: Hematocrit 33.5 % (42.0-52.0); Mean Corpuscular HGB Conc 32.8 g/dl (32-36); Mean Corpuscular Hemoglobin 31.2 pg (26-34); Mean Corpuscular Volume 94.9 fl (80-100); Mean Platelet Volume 11.2 fl (7.4-10.4); Platelet Count Result 140 k/mm3 (150-375); Red Blood Count 3.53 M/mm3 (4.6-6.20); Red Cell Distribution Width 12.7 % (11.5-14.5); White Blood Count 9.5 K/mm3 (4.5-10.0)
[2024-08-26 07:13] LABS: Alanine Aminotransferase 16 U/L (6-50); Albumin Level 3.3 g/dL (3.5-5.1); Alkaline Phosphatase 73 U/L (38-126); Anion Gap 1 mmol/L (4-12); Aspartate Amino Transferase 43 U/L (17-59); Bilirubin,Total 1.2 mg/dL (0.2-1.3); Blood Urea Nitrogen 18 mg/dL (9-20); Calcium 8.5 mg/dL (8.4-10.2); Carbon Dioxide 32 mmol/L (22-30); Chloride 102 mmol/L (98-107); Estimated CRCL calculation 66 ml/min; Estimated Glomerular Filt Rate > 60; Glucose 111 mg/dL (65-110); Potassium 3.6 mmol/L (3.4-5.0); Sodium 135 mmol/L (137-145)
[2024-08-26] MEDS: HYDROcodone/acetaminophen (*CRX) 7.5-325 MG TABLET 1 TAB PO ×3 (09:27→20:54)
[2024-08-26] MEDS: SENNA/DOCUSATE SODIUM TABLET 2 TAB PO ×2 (09:27→16:59)
[2024-08-26] MEDS: polyethylene glycoL 3350 17 GM POWD.PACK PO (09:28)
[2024-08-26] MEDS: ROSUVASTATIN 10 MG TABLET PO (09:28)
[2024-08-26] MEDS: dilTIAZem HCL CD 240 MG CAP.24HR PO (09:28)
--- NOTE | 2024-08-26 11:11 | P.PNIM_ITS ---
Progress Note: A&P Assessment and Plan (1) Ground-level fall: Code(s): W18.30XA - Fall on same level, unspecified, initial encounter Status: Acute Assessment and Plan: Patient slipped on wet pavement outside and landed hard on his left hip. Denies head trauma loss of consciousness in the fall. Patient on dual antiplatelet therapy with ASA and plavix. - Head CT: No fracture or acute intracranial process - C spine: Severe cervical spondylosis. No acute osseous abnormality. - Chest XR: Minimal left basilar atelectasis. - Hip/pelvis XR: 2.5 cm proximal to its placement of a transcervical fracture of the proximal left femur. - Knee XR: At least minimal tricompartmental osteoarthritis the left knee. No knee joint effusion or acute osseous abnormality - PT/OT partial weight bearing (2) Fracture of femoral neck, left: Code(s): S72.002A - Fracture of unspecified part of neck of left femur, initial encounter for closed fracture Status: Acute Assessment and Plan: Patient slipped on wet pavement outside and landed hard on his left hip. Denies head trauma loss of consciousness in the fall. Patient on dual antiplatelet therapy with ASA and plavix. - Hip/pelvis XR: 2.5 cm proximal to its placement of a transcervical fracture of the proximal left femur. - Knee XR: At least minimal tricompartmental osteoarthritis the left knee which could be underestimated on nonweightbearing imaging. No knee joint effusion or acute osseous abnormality - Analgesics - DVT ppx: per surgery, currently on SCD, holding asa and plavix. - Antibiotic: Ancef, course completed on 08/25 - PT/OT partial weight bearing - Ortho consulted, appreciate recommendations s/p bipolar replacement on 08/[address] Santiago -continue PT/OT- care coordination following for rehab placement (3) Coronary artery disease: Code(s): I25.10 - Atherosclerotic heart disease of [place] coronary artery without angina pectoris Status: Acute Assessment and Plan: Chronic, continue diltiazem and rosuvastatin. Currently holding asa and plavix in anticipation for surgery. Resume when appropriate. (4) Hyperlipidemia: Code(s): E78.5 - Hyperlipidemia, unspecified Status: Acute Assessment and Plan: Chronic, continue home medications - Rosuvastatin 10 mg daily (5) Hypertension: Code(s): I10 - Essential (primary) hypertension Status: Acute Assessment and Plan: Chronic, continue home medications - diltiazem 240 mg daily - monitor (6) Obstructive sleep apnea on CPAP: Code(s): G47.33 - Obstructive sleep apnea (adult) (pediatric); Z99.89 - Dependence on other enabling machines and devices Status: Acute Assessment and Plan: Continue CPAP use (7) Constipation: Code(s): K59.00 - Constipation, unspecified Status: Acute Assessment and Plan: continue miralax and colace will add suppository if needed Time Spent With Patient Time with patient: Greater than 35 minutes Subjective Date/time seen: 08/26/24 11:11 Interval history: 78-year-old male with coronary artery disease, hypertension, dyslipidemia, paroxysmal supraventricular tachycardia, and obstructive sleep apnea on CPAP presented to the hospital via EMS for evaluation of left hip pain after fall. Assuming care. Pt is seen and examined. He is working with PT/OT. Care coordination following for [facility]/rehab once cleared with ortho. Didnot have BM in few days- passing gas- states have urge-just haven't happened yet Review of Systems Review of Systems: 12 systems were reviewed and are negativ e except for as per HPI. All systems reviewed & are unremarkable except as noted in HPI and below Exam Narrative: General: male in no acute respiratory distress who is nontoxic appearing, lying semi recumbent in bed. HEENT: Normocephalic. Atraumatic.Extraocular movement intact. Sclera clear and anicteric. No facial asymmetry. Chest: Lungs are clear to auscultation bilaterally. No wheezes or crackles. CV: Heart was regular rate and rhythm. S1/S2. No murmurs, gallops, or rubs. Abd: Abdomen was soft. Nontender. Nondistended. Positive bowel sounds. No organomegaly or masses. Ext: No clubbing, cyanosis, or edema. 2+ DP pulses bilaterally. Able to move his toes. Dressing clean/dry/intact to the lateral left leg. Neuro: Patient is alert. Speech is clear. Mild bilateral numbness to the feet (patient states this is chronic and unchanged). Objective Data Vital Signs Vital Signs: Vital Signs - 24 hr 08/25/24 11:57 08/25/24 15:45 08/25/24 20:00 Temperature 97.7 F 98.6 F Pulse Rate 94 78 Respiratory Rate 20 20 Blood Pressure 133/59 L 124/63 Pulse Oximetry 96 94 Oxygen Delivery Room Air 08/25/24 20:13 08/25/24 21:24 08/25/24 22:55 Temperature 98.0 F 98.0 F Pulse Rate 88 88 97 Respiratory Rate 14 14 Blood Pressure 131/57 L 131/57 L Pulse Oximetry 95 95 Oxygen Delivery CPAP 08/25/24 23:03 08/26/24 02:01 08/26/24 05:32 Temperature 97.1 F L Pulse Rate 97 66 Respiratory Rate 16 14 Blood Pressure 143/64 H Pulse Oximetry 99 Oxygen Delivery CPAP CPAP 08/26/24 08:00 Temperature Pulse Rate Respiratory Rate Blood Pressure Pulse Oximetry Oxygen Delivery Room Air Intake/Output Intake/Output: Intake & Output 08/23/24 08/24/24 08/25/24 08/26/24 23:59 23:59 23:59 23:59 Intake Total 6797 037 1454 390 Output Total 1800 1650 1400 1075 Balance -320 -669 770 -679 Meds/Results Medications: Active Medications Generic Name Dose Route Start Last Admin Trade Name Freq PRN Reason Stop Dose Admin Acetaminophen 650 mg 08/22/24 13:08 08/25/24 22:14 Acetaminophen 325 Mg Tablet PO 650 mg Q4H PRN Administration Mild Pain (1-3) or Fever Hydrocodone Bitart/Acetaminophen 1 tab 08/23/24 11:45 08/24/24 20:18 Hydrocodone/Acetaminophen (*Crx) 5-325 Mg Tablet PO 1 tab Q4H PRN Administration Pain Rated 4-6 Hydrocodone Bitart/Acetaminophen 1 tab 08/24/24 18:28 Hydrocodone/Acetaminophen (*Crx) 5-325 Mg Tablet PO Q4H PRN Pain Rated 4-6 Hydrocodone Bitart/Acetaminophen 1 tab 08/24/24 18:28 08/26/24 09:27 Hydrocodone/Acetaminophen (*Crx) 7.5-325 Mg Tablet PO 1 tab Q4H PRN Administration Pain Rated 7-10 Cyclobenzaprine HCl 10 mg 08/24/24 18:28 08/25/24 13:36 Cyclobenzaprine Hcl 10 Mg Tablet PO 10 mg Q8H PRN Administration Muscle Spasm Diltiazem HCl 240 mg 08/23/24 09:00 12/18/24 09:28 Diltiazem Hcl Cd 240 Mg Cap.24hr PO 240 mg QAM JAY Administration Fentanyl Citrate 25 mcg 08/24/24 17:44 Fentanyl Citrate Inj (*Crx) 100 Mcg/2 Ml Vial IV PUSH Q2M PRN Pain Hydromorphone HCl 1 mg 08/22/24 19:44 08/24/24 11:13 Hydromorphone Hcl Inj (*Crx) 1 Mg/Ml Syr IV PUSH 1 mg Q3H PRN Administration Pain Rated 7-10 Hydromorphone HCl 1 mg 08/24/24 18:28 08/24/24 20:29 Hydromorphone Hcl Inj (*Crx) 1 Mg/Ml Syr IV PUSH 1 mg Q2H PRN Administration Breakthrough Pain Rated 7-10 or NPO Hydromorphone HCl 0.5 mg 08/24/24 18:28 Hydromorphone Hcl Inj (*Crx) 1 Mg/Ml Syr IV PUSH Q2H PRN Breakthrough Pain Rated 4-6 or NPO Hydroxyzine Pamoate 50 mg 08/24/24 18:28 Hydroxyzine Pamoate 25 Mg Capsule PO Q4H PRN Itching Ibuprofen 800 mg in 200 mls @ 400 mls/hr 08/24/24 18:28 08/25/24 21:30 Caldolor 800 Mg/200 Ml IVPB Infused Q6H PRN Infusion Breakthrough Pain Rated 1-3 or NPO Naloxone HCl 0.1 mg 08/24/24 18:28 Naloxone Hcl 0.4 Mg/Ml Vial IV PUSH Q2M PRN Opiate Reversal Ondansetron HCl 4 mg 08/22/24 13:08 08/23/24 17:11 Ondansetron Inj 4 Mg/2 Ml Vial IV PUSH 4 mg Q4H PRN Administration Nausea Ondansetron HCl 4 mg 08/24/24 17:44 Ondansetron Inj 4 Mg/2 Ml Vial IV PUSH ONCE PRN Nausea Ondansetron HCl 4 mg 08/24/24 18:28 Ondansetron Inj 4 Mg/2 Ml Vial IV PUSH Q4H PRN Nausea And Vomiting Polyethylene Glycol 17 gm 08/25/24 09:00 08/26/24 09:28 Polyethylene Glycol 3350 17 Gm Powd.Pack PO 17 gm QAM JAY Administration Ropinirole HCl 1 mg 08/22/24 21:00 08/25/24 20:29 Ropinirole Hcl 1 Mg Tablet BY MOUTH 1 mg HS JAY Administration Rosuvastatin Calcium 10 mg 08/23/24 09:00 08/26/24 09:28 Rosuvastatin 10 Mg Tablet PO 10 mg QAM JAY Administration Senna/Docusate Sodium 1 tab 08/23/24 21:00 08/25/24 20:29 Senna/Docusate Sodium Tablet PO 1 tab HS JAY Administration Senna/Docusate Sodium 2 tab 08/25/24 09:00 08/26/24 09:27 Senna/Docusate Sodium Tablet PO 2 tab BID JAY Administration Tramadol HCl 50 mg 08/24/24 18:28 Tramadol Hcl (*Crx) 50 Mg Tablet PO Q4H PRN Pain Rated 1-3 Radiology Results: ITS Impressions Head CT 08/22/24 11:23 IMPRESSION: 1. Normal aging brain. No fracture or acute intracranial process. Cervical Spine CT 08/22/24 11:28 IMPRESSION: 1. Severe cervical spondylosis. No acute osseous abnormality. Hip/Pelvis X-Ray 08/22/24 12:37 IMPRESSION: 1. 2.5 cm proximal to its placement of a transcervical fracture of the proximal left femur. Chest X-Ray 08/22/24 12:41 IMPRESSION: 1. Minimal left basilar atelectasis. Knee X-Ray 08/22/24 13:21 IMPRESSION: 1. At least minimal tricompartmental osteoarthritis the left knee which could be underestimated on nonweightbearing imaging. No knee joint effusion or acute osseous abnormality Intraoperative X-Ray 08/24/24 17:19 IMPRESSION: 1. 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 Labs Labs: Laboratory Results - last 24 hr 08/26/24 06:13 WBC 9.5 RBC 3.53 L Hgb 11.0 L Hct 33.5 L MCV 94.9 MCH 31.2 MCHC 32.8 RDW 12.7 Plt Count 140 L MPV 11.2 H Sodium 135 L Potassium 3.6 Chloride 102 Carbon Dioxide 32 H Anion Gap 1 L BUN 18 Creatinine 1.10 Estim Creat Clear Calc 66 Estimated GFR > 60 Glucose 111 H Calcium 8.5 Total Bilirubin 1.2 AST 43 ALT 16 Alkaline Phosphatase 73 Total Protein 6.0 L Albumin 3.3 L Quality VTE Prophylaxis VTE prophylaxis: mechanical ordered
[2024-08-26 14:15] VITALS: BP 129/42; PULSE 84; RESP 16; TEMP 36.6; O2SAT 94
[2024-08-26] MEDS: BISACODYL 10 MG SUPPOSITORY RECTAL (14:17)
[2024-08-26] MEDS: SENNA/DOCUSATE SODIUM TABLET 1 TAB PO (20:54)
[2024-08-26] MEDS: rOPINIRole HCL 1 MG TABLET BY MOUTH (20:54)
[2024-08-26] MEDS: hydrOXYzine pamoate 25 MG CAPSULE 50 MG PO (20:54)
[2024-08-26 21:09] VITALS: BP 108/64; PULSE 85; RESP 18; TEMP 36.7; O2SAT 97
[2024-08-26 23:52] VITALS: PULSE 93; RESP 24
[2024-08-27 03:33] VITALS: PULSE 96; RESP 18
[2024-08-27 05:38] VITALS: BP 125/58; PULSE 85; RESP 20; TEMP 36.6; O2SAT 99
[2024-08-27 07:20] LABS: Hematocrit 30.6 % (42.0-52.0); Hemoglobin 10.2 g/dL (14.0-18.0); Mean Corpuscular HGB Conc 33.3 g/dl (32-36); Mean Corpuscular Hemoglobin 31.7 pg (26-34); Mean Platelet Volume 11.1 fl (7.4-10.4); Platelet Count Result 147 k/mm3 (150-375); Red Blood Count 3.22 M/mm3 (4.6-6.20); Red Cell Distribution Width 12.7 % (11.5-14.5); White Blood Count 7.4 K/mm3 (4.5-10.0)
[2024-08-27 07:30] LABS: Alanine Aminotransferase 22 U/L (6-50); Albumin Level 3.2 g/dL (3.5-5.1); Alkaline Phosphatase 71 U/L (38-126); Anion Gap -1 mmol/L (4-12); Aspartate Amino Transferase 42 U/L (17-59); Bilirubin,Total 1.2 mg/dL (0.2-1.3); Blood Urea Nitrogen 17 mg/dL (9-20); Calcium 8.3 mg/dL (8.4-10.2); Carbon Dioxide 33 mmol/L (22-30); Chloride 102 mmol/L (98-107); Estimated CRCL calculation 67 ml/min; Estimated Glomerular Filt Rate > 60; Glucose 115 mg/dL (65-110); Potassium 3.8 mmol/L (3.4-5.0); Sodium 134 mmol/L (137-145)
--- NOTE | 2024-08-27 08:50 | PM.IMPN ---
Progress Note: A&P Assessment and Plan (1) Ground-level fall: Code(s): W18.30XA - Fall on same level, unspecified, initial encounter Status: Acute Assessment and Plan: Patient slipped on wet pavement outside and landed hard on his left hip. Denies head trauma loss of consciousness in the fall. Patient on dual antiplatelet therapy with ASA and plavix. - Head CT: No fracture or acute intracranial process - C spine: Severe cervical spondylosis. No acute osseous abnormality. - Chest XR: Minimal left basilar atelectasis. - Hip/pelvis XR: 2.5 cm proximal to its placement of a transcervical fracture of the proximal left femur. - Knee XR: At least minimal tricompartmental osteoarthritis the left knee. No knee joint effusion or acute osseous abnormality - PT/OT partial weight bearing (2) Fracture of femoral neck, left: Code(s): S72.002A - Fracture of unspecified part of neck of left femur, initial encounter for closed fracture Status: Acute Assessment and Plan: Patient slipped on wet pavement outside and landed hard on his left hip. Denies head trauma loss of consciousness in the fall. Patient on dual antiplatelet therapy with ASA and plavix. - Hip/pelvis XR: 2.5 cm proximal to its placement of a transcervical fracture of the proximal left femur. - Knee XR: At least minimal tricompartmental osteoarthritis the left knee which could be underestimated on nonweightbearing imaging. No knee joint effusion or acute osseous abnormality - Analgesics - DVT ppx: per surgery, currently on SCD, holding asa and plavix. - Antibiotic: Ancef, course completed on 08/25 - PT/OT partial weight bearing - Ortho consulted, appreciate recommendations s/p bipolar replacement on 08/[address] Santaigo -continue PT/OT- care coordination following for rehab placement (3) Coronary artery disease: Code(s): I25.10 - Atherosclerotic heart disease of [place] coronary artery without angina pectoris Status: Acute Assessment and Plan: Chronic, continue diltiazem and rosuvastatin. Currently holding asa and plavix in anticipation for surgery. Resume when appropriate. (4) Hyperlipidemia: Code(s): E78.5 - Hyperlipidemia, unspecified Status: Acute Assessment and Plan: Chronic, continue home medications - Rosuvastatin 10 mg daily (5) Hypertension: Code(s): I10 - Essential (primary) hypertension Status: Acute Assessment and Plan: Chronic, continue home medications - diltiazem 240 mg daily - monitor (6) Obstructive sleep apnea on CPAP: Code(s): G47.33 - Obstructive sleep apnea (adult) (pediatric); Z99.89 - Dependence on other enabling machines and devices Status: Acute Assessment and Plan: Continue CPAP use (7) Constipation: Code(s): K59.00 - Constipation, unspecified Status: Acute Assessment and Plan: continue miralax and colace will add suppository if needed Time Spent With Patient Time with patient: Greater than 35 minutes Subjective Date/time seen: 08/27/24 08:50 Interval history: 78-year-old male with coronary artery disease, hypertension, dyslipidemia, paroxysmal supraventricular tachycardia, and obstructive sleep apnea on CPAP presented to the hospital via EMS for evaluation of left hip pain after fall. Pt is seen and examined. Had BM last night. Insurance did not approve [facility]- so care coordination working on other options. Review of Systems Review of Systems: 12 systems were reviewed and are negative except for as per HPI. All systems reviewed & are unremarkable except as noted in HPI and below Exam Narrative: General: male in no acute respiratory distress who is nontoxic appearing, lying semi recumbent in bed. HEENT: Normocephalic. Atraumatic.Extraocular movement intact. Sclera clear and anicteric. No facial asymmetry. Chest: Lungs are clear to auscultation bilaterally. No wheezes or crackles. CV: Heart was regular rate and rhythm. S1/S2. No murmurs, gallops, or rubs. Abd: Abdomen was soft. Nontender. Nondistended. Positive bowel sounds. No organomegaly or masses. Ext: No clubbing, cyanosis, or edema. 2+ DP pulses bilaterally. Able to move his toes. Dressing clean/dry/intact to the lateral left leg. Neuro: Patient is alert. Speech is clear. Mild bilateral numbness to the feet (patient states this is chronic and unchanged). Objective Data Vital Signs Vital Signs: Vital Signs - 24 hr 08/26/24 14:15 08/26/24 21:09 08/26/24 23:52 Temperature 97.8 F 98.1 F Pulse Rate 84 85 93 Respiratory Rate 16 18 24 H Blood Pressure 129/42 L 108/64 Pulse Oximetry 94 97 Oxygen Delivery CPAP 08/27/24 03:33 08/27/24 05:38 Temperature 97.8 F Pulse Rate 96 85 Respiratory Rate 18 20 Blood Pressure 125/58 L Pulse Oximetry 99 Oxygen Delivery CPAP Intake/Output Intake/Output: Intake & Output 08/24/24 08/25/24 08/26/24 08/27/24 23:59 23:59 23:59 23:59 Intake Total 900 2170 870 1100 Output Total 1650 1400 1075 250 Balance -750 770 -205 850 Meds/Results Medications: Active Medications Generic Name Dose Route Start Last Admin Trade Name Freq PRN Reason Stop Dose Admin Acetaminophen 650 mg 08/22/24 13:08 08/25/24 22:14 Acetaminophen 325 Mg Tablet PO 650 mg Q4H PRN Administration Mild Pain (1-3) or Fever Hydrocodone Bitart/Acetaminophen 1 tab 08/23/24 11:45 08/24/24 20:18 Hydrocodone/Acetaminophen (*Crx) 5-325 Mg Tablet PO 1 tab Q4H PRN Administration Pain Rated 4-6 Hydrocodone Bitart/Acetaminophen 1 tab 08/24/24 18:28 Hydrocodone/Acetaminophen (*Crx) 5-325 Mg Tablet PO Q4H PRN Pain Rated 4-6 Hydrocodone Bitart/Acetaminophen 1 tab 08/24/24 18:28 08/26/24 20:54 Hydrocodone/Acetaminophen (*Crx) 7.5-325 Mg Tablet PO 1 tab Q4H PRN Administration Pain Rated 7-10 Cyclobenzaprine HCl 10 mg 08/24/24 18:28 08/25/24 13:36 Cyclobenzaprine Hcl 10 Mg Tablet PO 10 mg Q8H PRN Administration Muscle Spasm Diltiazem HCl 240 mg 08/23/24 09:00 08/26/24 09:28 Diltiazem Hcl Cd 240 Mg Cap.24hr PO 240 mg QAM JAY Administration Fentanyl Citrate 25 mcg 08/24/24 17:44 Fentanyl Citrate Inj (*Crx) 100 Mcg/2 Ml Vial IV PUSH Q2M PRN Pain Hydromorphone HCl 1 mg 08/22/24 19:44 08/24/24 11:13 Hydromorphone Hcl Inj (*Crx) 1 Mg/Ml Syr IV PUSH 1 mg Q3H PRN Administration Pain Rated 7-10 Hydromorphone HCl 1 mg 08/24/24 18:28 08/24/24 20:29 Hydromorphone Hcl Inj (*Crx) 1 Mg/Ml Syr IV PUSH 1 mg Q2H PRN Administration Breakthrough Pain Rated 7-10 or NPO Hydromorphone HCl 0.5 mg 08/24/24 18:28 Hydromorphone Hcl Inj (*Crx) 1 Mg/Ml Syr IV PUSH Q2H PRN Breakthrough Pain Rated 4-6 or NPO Hydroxyzine Pamoate 50 mg 08/24/24 18:28 08/26/24 20:54 Hydroxyzine Pamoate 25 Mg Capsule PO 50 mg Q4H PRN Administration Itching Ibuprofen 800 mg in 200 mls @ 400 mls/hr 08/24/24 18:28 08/25/24 21:30 Caldolor 800 Mg/200 Ml IVPB Infused Q6H PRN Infusion Breakthrough Pain Rated 1-3 or NPO Naloxone HCl 0.1 mg 08/24/24 18:28 Naloxone Hcl 0.4 Mg/Ml Vial IV PUSH Q2M PRN Opiate Reversal Ondansetron HCl 4 mg 08/22/24 13:08 08/23/24 17:11 Ondansetron Inj 4 Mg/2 Ml Vial IV PUSH 4 mg Q4H PRN Administration Nausea Ondansetron HCl 4 mg 08/24/24 17:44 Ondansetron Inj 4 Mg/2 Ml Vial IV PUSH ONCE PRN Nausea Ondansetron HCl 4 mg 08/24/24 18:28 Ondansetron Inj 4 Mg/2 Ml Vial IV PUSH Q4H PRN Nausea And Vomiting Polyethylene Glycol 17 gm 08/25/24 09:00 08/26/24 09:28 Polyethylene Glycol 3350 17 Gm Powd.Pack PO 17 gm QAM JAY Administration Ropinirole HCl 1 mg 08/22/24 21:00 08/26/24 20:54 Ropinirole Hcl 1 Mg Tablet BY MOUTH 1 mg HS JAY Administration Rosuvastatin Calcium 10 mg 08/23/24 09:00 08/26/24 09:28 Rosuvastatin 10 Mg Tablet PO 10 mg QAM JAY Administration Senna/Docusate Sodium 1 tab 08/23/24 21:00 08/26/24 20:54 Senna/Docusate Sodium Tablet PO 1 tab HS JAY Administration Senna/Docusate Sodium 2 tab 08/25/24 09:00 08/26/24 16:59 Senna/Docusate Sodium Tablet PO 2 tab BID JAY Administration Tramadol HCl 50 mg 08/24/24 18:28 Tramadol Hcl (*Crx) 50 Mg Tablet PO Q4H PRN Pain Rated 1-3 Radiology Results: ITS Impressions Head CT 08/22/24 11:23 IMPRESSION: 1. Normal aging brain. No fracture or acute intracranial process. Cervical Spine CT 08/22/24 11:28 IMPRESSION: 1. Severe cervical spondylosis. No acute osseous abnormality. Hip/Pelvis X-Ray 08/22/24 12:37 IMPRESSION: 1. 2.5 cm proximal to its placement of a transcervical fracture of the proximal left femur. Chest X-Ray 08/22/24 12:41 IMPRESSION: 1. Minimal left basilar atelectasis. Knee X-Ray 08/22/24 13:21 IMPRESSION: 1. At least minimal tricompartmental osteoarthritis the left knee which could be underestimated on nonweightbearing imaging. No knee joint effusion or acute osseous abnormality Intraoperative X-Ray 08/24/24 17:19 IMPRESSION: 1. Placement of a bipolar type left hip hemiarthroplasty which is in near-anatomic alignment. Labs Labs: Laboratory Results - last 24 hr 08/27/24 07:06 WBC 7.4 RBC 3.22 L Hgb 10.2 L Hct 30.6 L MCV 95.0 MCH 31.7 MCHC 33.3 RDW 12.7 Plt Count 147 L MPV 11.1 H Sodium 134 L Potassium 3.8 Chloride 102 Carbon Dioxide 33 H Anion Gap -1 L BUN 17 Creatinine 1.10 Estim Creat Clear Calc 67 Estimated GFR > 60 Glucose 115 H Calcium 8.3 L Total Bilirubin 1.2 AST 42 ALT 22 Alkaline Phosphatase 71 Total Protein 6.0 L Albumin 3.2 L Quality VTE Prophylaxis VTE prophylaxis: mechanical ordered
[2024-08-27] MEDS: dilTIAZem HCL CD 240 MG CAP.24HR PO (09:50)
[2024-08-27] MEDS: SENNA/DOCUSATE SODIUM TABLET 2 TAB PO (09:50)
[2024-08-27] MEDS: polyethylene glycoL 3350 17 GM POWD.PACK PO (09:50)
[2024-08-27] MEDS: ACETAMINOPHEN 325 MG TABLET 650 MG PO (09:50)
[2024-08-27] MEDS: ROSUVASTATIN 10 MG TABLET PO (09:50)
--- NOTE | 2024-08-27 13:51 | P.DS_ITS ---
DS: Admitting Diagnosis Discharge Date 08/27 Admitting Diagnosis fall, lt hip fx DS: Discharge Diagnosis Discharge Diagnosis (1) Ground-level fall: Code(s): W18.30XA - Fall on same level, unspecified, initial encounter Status: Acute (2) Fracture of femoral neck, left: Code(s): S72.002A - Fracture of unspecified part of neck of left femur, initial encounter for closed fracture Status: Acute (3) Coronary artery disease: Code(s): I25.10 - Atherosclerotic heart disease of [place]' coronary artery without angina pectoris Status: Acute (4) Hyperlipidemia: Code(s): E78.5 - Hyperlipidemia, unspecified Status: Acute (5) Hypertension: Code(s): I10 - Essential (primary) hypertension Status: Acute (6) Obstructive sleep apnea on CPAP: Code(s): G47.33 - Obstructive sleep apnea (adult) (pediatric); Z99.89 - Dependence on other enabling machines and devices Status: Acute (7) Constipation: Code(s): K59.00 - Constipation, unspecified Status: Acute DS: Summary Hospital Course Hospital Course: Interval history: 78-year-old male with coronary artery disease, hypertension, dyslipidemia, paroxysmal supraventricular tachycardia, and obstructive sleep apnea on CPAP presented to the hospital via EMS for evaluation of left hip pain after fall. # Fall Patient slipped on wet pavement outside and landed hard on his left hip. Denies head trauma loss of consciousness in the fall. Patient on dual antiplatelet therapy with ASA and plavix. - Head CT: No fracture or acute intracranial process - C spine: Severe cervical spondylosis. No acute osseous abnormality. - Chest XR: Minimal left basilar atelectasis. - Hip/pelvis XR: 2.5 cm proximal to its placement of a transcervical fracture of the proximal left femur. - Knee XR: At least minimal tricompartmental osteoarthritis the left knee. No knee joint effusion or acute osseous abnormality - PT/OT partial weight bearing # Fracture of femoral neck, left: Patient slipped on wet pavement outside and landed hard on his left hip. Denies head trauma loss of consciousness in the fall. Patient on dual antiplatelet therapy with ASA and plavix. - Hip/pelvis XR: 2.5 cm proximal to its placement of a transcervical fracture of the proximal left femur. - Knee XR: At least minimal tricompartmental osteoarthritis the left knee which could be underestimated on nonweightbearing imaging. No knee joint effusion or acute osseous abnormality - Analgesics - DVT ppx: per surgery, currently on SCD, holding asa and plavix. - Antibiotic: Ancef, course completed on 08/25 - PT/OT partial weight bearing s/p bipolar replacement on 08/[address] Santiago -continue PT/OT- care coordination following for rehab placement # htn diltiazem 240 mg stable- no changes Status at Discharge Functional status at discharge: uses cane/walker Overall status at discharge: patient is progressing back to baseline Time Spent with Patient Time attestation: Total time spent providing and/or coordinating discharge services: Time spent: Greater than 30 minutes Exam Narrative: General: male in no acute respiratory distress who is nontoxic appearing, lying semi recumbent in bed. HEENT: Normocephalic. Atraumatic.Extraocular movement intact. Sclera clear and anicteric. No facial asymmetry. Chest: Lungs are clear to auscultation bilaterally. No wheezes or crackles. CV: Heart was regular rate and rhythm. S1/S2. No murmurs, gallops, or rubs. Abd: Abdomen was soft. Nontender. Nondistended. Positive bowel sounds. No organomegaly or masses. Ext: No clubbing, cyanosis, or edema. 2+ DP pulses bilaterally. Able to move his toes. Dressing clean/dry/intact to the lateral left leg. Neuro: Patient is alert. Speech is clear. Mild bilateral numbness to the feet (patient states this is chronic and unchanged). Const: General: comfortable DS: Data Data Completed and Pending Labs on day of discharge: Labs from last 24 hours 08/27/24 07:06 WBC 7.4 RBC 3.22 L Hgb 10.2 L Hct 30.6 L MCV 95.0 MCH 31.7 MCHC 33.3 RDW 12.7 Plt Count 147 L MPV 11.1 H Sodium 134 L Potassium 3.8 Chloride 102 Carbon Dioxide 33 H Anion Gap -1 L BUN 17 Creatinine 1.10 Estim Creat Clear Calc 67 Estimated GFR > 60 Glucose 115 H Calcium 8.3 L Total Bilirubin 1.2 AST 42 ALT 22 Alkaline Phosphatase 71 Total Protein 6.0 L Albumin 3.2 L Discharge Plan Discharge Attending physician on discharge: John Carrero Consulting providers: Pedro Santiago Discharging Clinician: Jannette Hoover Patient Disposition: SNF Activity: may shower Diet: as tolerated and heart healthy Patient Instructions: Clopidogrel (By mouth) Patient Language: Azerbaijani Stand Alone Forms: General Discharge Information Follow-up/Referrals: Pedro Santiago MD [Physician] - 2 Weeks Ciaran Rizo MD [Primary Care Provider] - 2 Weeks Discharge Medications: New cyclobenzaprine 10 mg Tablet 10 mg PO Q8H PRN (Reason: Muscle Spasm) Qty: 30 0RF hydrocodone-acetaminophen 5-325 mg Tablet 1 tablet PO Q4H PRN (Reason: Pain Rated 4-6) Qty: 20 0RF hydroxyzine pamoate 25 mg Capsule 50 mg PO Q4H PRN (Reason: Itching) Qty: 20 0RF Continued clopidogrel 75 mg Tablet 75 mg PO QAM Qty: 30 0RF rosuvastatin [Crestor] 10 mg Tablet 10 mg PO QAM Qty: 30 0RF diltiazem HCl 240 mg Capsule,Ext.Rel 24h Degradable 240 mg PO QAM Qty: 30 3RF aspirin 81 mg Tablet,Delayed Release (Dr/Ec) 81 mg PO BID ropinirole 1 mg tablet See Rx Instructions .ROUTE .COMPLEX Qty: 90 1RF Dose Instruction: TAKE 1 TABLET BY MOUTH EVERY DAY AT BEDTIME Rx Instructions: TAKE 1 TABLET BY MOUTH EVERY DAY AT BEDTIME Date of admission: 08/22/24 16:51 Primary Care Provider: Ciaran Rizo Admitting Provider: Dom Milner Attending physician on admission: Milvia Saldivar Condition: Stable Quality VTE Prophylaxis VTE prophylaxis: mechanical ordered Hospitalist MIPS Heart Failure (Exclusion) Patient has history of Heart Transplant or Left Ventricular Assistive Device?: No IF YES, STOP HERE Heart Failure (Qualifier) Patient has current or prior documentation of LVEF less than or equal to 40%, or mod/servere depressed LVSF?: No IF NO, STOP HERE
[2024-08-27 14:00] VITALS: BP 128/68; PULSE 92; RESP 16; TEMP 36.8; O2SAT 96
== END 2024-08-27 15:45 | DRG 522 ==
LOC: ANHED 13:05 → ANH3MEDSUR 14:07
PROVIDERS: Orthopaedic Surgery; Physician Assistant; Student in an Organized Health Care Education/Training Program; Admitting Provider Internal Medicine; Emergency Provider Emergency Medicine; PCP Family Medicine; Visit Provider Nurse Practitioner
PROC: 0SRS01A Replacement of Left Hip Joint, Femoral Surface with Metal Synthetic Substitute, Uncemented, Open Approach (ICD-10-PCS; CPT 27125; principal; 2024-08-24 15:00)
DX: S72.032A Displaced midcervical fracture of left femur, initial encounter for closed fracture (principal); I47.10 Supraventricular tachycardia, unspecified; I25.10 Atherosclerotic heart disease of native coronary artery without angina pectoris; I10 Essential (primary) hypertension; E78.5 Hyperlipidemia, unspecified; G47.33 Obstructive sleep apnea (adult) (pediatric); G25.81 Restless legs syndrome; W01.0XXA Fall on same level from slipping, tripping and stumbling without subsequent striking against object, initial encounter; Z86.73 Personal history of transient ischemic attack (TIA), and cerebral infarction without residual deficits; Z87.442 Personal history of urinary calculi; Z95.5 Presence of coronary angioplasty implant and graft; Z87.891 Personal history of nicotine dependence; Z79.02 Long term (current) use of antithrombotics/antiplatelets; Z79.82 Long term (current) use of aspirin
CPT/HCPCS: 36415; 70450; 71045; 72125; 73502; 73562; 80048; 80053; 83735; 85025; 85027; 85610; 85730; 93005; 96374; 96375; 96376; 97110; 97116; 97161; 97165; 97530; 97535; 99199; 99285; A9270; C1713; C1776; G0378; J0171; J0330; J0690; J1100; J1171; J1741; J2270; J2405; J2704; J3010; J3370; J7120

== ENCOUNTER 2024-10-15 12:55 | Outpatient (CLI) | payer OTHER, SELFPAY ==
--- NOTE | ~2024-10-15 | XR_ITS ---
AP view of the pelvis and AP and lateral views of the left hip Clinical history: Pain Findings: No acute fracture or dislocation is seen. Osseous alignment is anatomic. Left hip arthropla sty in place. No hardware complication. There is heterotopic ossification about the left greater troc hanter. Impression: No acute abnormality. Left hip arthroplasty in place. Reviewed, dictated and finalized at location . TREATER Impression: No acute abnormality. Left hip arthroplasty in place.
== END 2024-10-15 12:56 | disposition home or self-care (01) ==
LOC: MICIMG 12:56
PROVIDERS: PCP Family Medicine; Visit Provider Nurse Practitioner Family
DX: Z96.642 Presence of left artificial hip joint (principal)
CPT/HCPCS: 73502

== ENCOUNTER 2024-11-19 14:34 | Outpatient (CLI) | payer OTHER, SELFPAY ==
--- NOTE | ~2024-11-19 | XR_ITS ---
CHEST RADIOGRAPH, PA AND LATERAL CLINICAL HISTORY: J06.9 - Acute upper respiratory infection, unspecified . COMPARISON: 08/22/2024 TECHNIQUE: PA and lateral views of the chest. FINDINGS The cardiomediastinal silhouette is unremarkable. Blunting of the left costophrenic sulcus suggesting a small left-sided pleural effusion. The remainder of the lungs are clear. IMPRESSION: Small left-sided pleural effusion, without focal infiltrate. Reviewed, dictated and finalized at location A.
== END 2024-11-19 14:35 | disposition home or self-care (01) ==
LOC: MICIMG 14:36
PROVIDERS: PCP Family Medicine; Visit Provider Family Medicine
DX: J90 Pleural effusion, not elsewhere classified (principal)
CPT/HCPCS: 71046

== ENCOUNTER 2025-07-07 09:56 | Outpatient (CLI) | payer OTHER, SELFPAY ==
--- NOTE | ~2025-07-07 | XR_ITS ---
EXAMINATION: XR finger 1st RT min 2V, 07/07/2025 10:00 CDT HISTORY: ANTERIOR PAIN OF RT 1ST DIGIT METACARPAL x2 WKS COMPARISON: No comparisons available. Findings: No acute fracture or malalignment. Moderate degenerative changes Soft tissues unremarkable. Impression: No acute fracture or malalignment. Reviewed, dictated and finalized at location P. Impression: No acute fracture or malalignment.
== END 2025-07-07 09:57 | disposition home or self-care (01) ==
LOC: MICIMG 09:57
PROVIDERS: PCP Nurse Practitioner Family; Visit Provider Nurse Practitioner Family
DX: M79.644 Pain in right finger(s) (principal)
CPT/HCPCS: 73140

== ENCOUNTER 2025-09-08 00:22 | Day surgery (SDC) | payer OTHER, SELFPAY ==
[2025-08-23 13:39] VITALS: BMI 33.9
--- NOTE | 2025-08-23 13:57 | PC.NURSE ---
Spoke with PATIENT regarding medication Plavix. Patient verbalizes understanding that the last dose is to be taken on 09/03/25 and the Endoscopist will instruct them when to restart after the procedure.
--- OUTSIDE RECORDS SUMMARY | 2025-09-08 00:26 | XMS_ITS | Encounter Summary ---
Author Organization [facility] [employer] 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
--- OUTSIDE RECORDS SUMMARY | 2025-09-08 00:26 | XMS_ITS | Clinical Summary ---
Author Organization [facility] Address [address] [place] [address] Care Team Providers Care Customer Liaison Name Role Phone Ciaran Rizo MD Primary Care Provider [phone] Allergies No known active allergies Medications rOPINIRole (REQUIP) 1 mg tablet Take 1 tablet (1 mg total) by mouth nightly 2 Active aspirin 81 mg enteric coated tablet TAKE 1 TABLET BY MOUTH EVERY DAY 90 tablet 3 4 Active diltiazem (TIAZAC) 240 mg 24 hr capsule Take 1 capsule by mouth once daily in the morning 90 capsule 1 5 Active rosuvastatin (CRESTOR) 10 mg tablet TAKE 1 TABLET BY MOUTH ONCE DAILY IN THE MORNING 180 tablet 5 Active clopidogreL (PLAVIX) 75 mg tablet TAKE 1 TABLET BY MOUTH IN THE MORNING 90 tablet 3 5 Active clopidogreL (PLAVIX) 75 mg tablet TAKE 1 TABLET BY MOUTH IN THE MORNING 90 tablet 5 08/24/20 25 Discontinued Active Problems Problem Noted Date Diagnosed Date History of coronary artery stent placement 01/04 Visit for wound check 07/24/2021 Chest pain 07/12/2021 Dyspnea on effort 05/09/2021 Iron deficiency 02/24/2018 RLS (restless legs syndrome) 02/24/2018 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 Possibly triggering AF. [...] 04/20/2013 02/24/2018 Obesity 04/20/2013 02/24/2018 Atrial fibrillation 03/28/2012 01/05/20 22 Assessment & Plan (09/12/2021 4:29 PM WALLPAPER INSPECTOR): Infrequent AF episodes seen on ambulatory monitoring and in hospital. [place] unclear, but appears to be overestimated by ambulatory monitor (confused with SVT). Suspect AF may be triggered primarily by SVT. Would recommend starting with SVT ablation and implantation of an ILR for AF surveillance. If symptomatic AF returns, AF ablation or antiarrhythmic drugs can be considered. [id number] = 3. Anticoagulation is reasonable for now, and decisions regarding need for long- term anticoagulation can be guided by ILR surveillance data. --Continue apixaban 5 mg PO BID. Hold starting 2 days prior to EPS/SVT ablation. --ILR implantation at time of SVT ablation. --ILR data to guide need for half-way anticoagulation. 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 Gender Identity Not on file Sexual Orientation Straight 07/05/2021 1: 06 PM CDT Last Filed Vital Signs Vital Sign Reading Time Taken Comments Blood Pressure 122/70 05/31/2025 10:31 AM CDT Pulse 84 05/31/2025 10:31 AM CDT Temperature 36.9 C (98.4 F) 07/13/2021 4:24 AM CDT Respiratory Rate 16 09/12/2021 12:4 7 PM WALLPAPER INSPECTOR Oxygen Saturation 98% 05/31/2025 10: 31 AM CDT Inhaled Oxygen Concentration - - Weight 112.7 kg (248 lb 6.4 oz) 025 10:31 AM CDT Height 182.9 cm (6') 05/31/2025 10:31 AM CDT Body Mass Index 33.69 05/31/2025 10:31 AM CDT Plan of Treatment Health Maintenance Due Date Last Done Comments Depression Screening 1945 Hepatitis C Screening 1945 DTaP/Tdap/Td Vaccine (1 - Tdap) 1957 Hepatitis B Screening 1964 Pneumococcal vaccine 65+ (1 of 1 - PCV) 1996 Zoster Vaccine (1 of 2) 1996 Abdominal Aortic Aneurysm (AAA) Screen 2011 Well Visit 65+ 2011 Fall Risk Assessment 07/13/2022 07/13/2021 Influenza Vaccine (#1) 2025 Medical Devices Implanted Type Area Assistant Women'S Basketball Coach Device Identifier Shelf Expiration Date Model / Serial / Lot [employer] [id number] Synergy Xd Monorail 2.5mm 38mm 144cm Delivery System 1 Access - S0 - [id number] Implanted:Qty: 1 on 07/11/2021 by Rosendo Silva MD at [facility] Stent [employer] 04/05/2023 [id number] 250 / 0 / [id number] Description:LAD [employer] [id number] Stent Drug Eluting S Megatron Mr 3.10x72an - S0 - [id number] Implanted:Qty: 1 on 07/11/2021 by Rosendo Silva MD at [facility] [employer]ent [employer] 01/03/2022 [id number] 350 / 0 / [id number] Description:LAD [employer] [id number] Synergy Xd Monorail 3mm 38mm 144cm Delivery System 1 Access Port - S0 - [id number] Implanted:Qty: 1 on 07/11/2021 by Rosendo Silva MD at [facility] St[employer] 02/20/2023 [id number] 300 / 0 / [id number] Description:RCA [employer] [id number] Synergy Xd Monorail 3.5mm 28mm 144cm Delivery System 1 Access - S0 - [id number] Implanted:Qty: 1 on 07/11/2021 by Rosendo Silva MD at [facility] Stent [employer] 02/09/2023 [id number] 350 / 0 / [id number] Description:RCA [employer] 76460-46 Perclose 6fr Suture Mediate Knot Push Vascular Device Closure - S0 - [id number] Implanted:Qty: 1 on 07/11/2021 by Rosendo Silva MD at [facility] [employer] 04/08/2023 [id number] / 0 / [id number] Insurance [facility] Member Subscriber Plan / Payer (Ef fective 2020-Present) Name:Olaf Menchaca Relation to Subscriber:Self Name:Olaf Menchaca Payer ID:[id number] (NAIC) Type:MEDICARE RISK OTHER Address: [place] [id number] [facility] Advance Directives For more information, please contact: [phone] * Full Code (Latest Code Status on File) Date Activated Date Inactivated Comments 07/11/2021 5:10 PM 07/13/2021 9:05 PM Care Teams Customer Liaison Relationship Specialty Start Date End Date Ciaran Rizo MD PCP - General Family Practice 05/21/23
--- OUTSIDE RECORDS SUMMARY | 2025-09-08 00:26 | XMS_ITS | Encounter Summary ---
Author Organization [facility] [employer] [facility] Address [address] [place] [address] Phone Care Team Providers Care Safety Scientist Name Role Phone Olaf Carvajal MD Primary Care Provider [phone] Nolberto Humphrey DO Primary Care Provider [phone] Leatha Silvestre MD Primary Care Provider [phone] Ciaran Rizo MD Primary Care Provider [phone] Reason for Visit * Reason Onset Date Comments Follow-up 10/27/2019 Sent patient fol low up appointments with Wilmer Patton NP for compliance 2-3 mths for 01/04/2020 @ 2:30pm and [address] Светлана Castillo on 07/25/2020 @ 3:30 pm Encounter Details Date Type Department Care Team (Late st Contact Info) Description 10/27/2019 Documentation [facility] [address] [place] [address] 6[address] [place] [address] Allegra Wild Follow-up (Sent patient [...] on file 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 Gender Identity Not on file Sexual Orientation Straight 07/05/2021 1: 06 PM CDT documented as of this encounter Plan of Treatment Not on file documented as of this encounter Visit Diagnoses Not on filedocumented in this encounter Care Teams Safety Scientist Relationship Specialty Start Date End Date Olaf Carvajal MD [address] [place] [address] PCP - General 11/03/12 05/02/21 Nolberto Humphrey DO [address] [place] [address] PCP - General Internal Medicine 05/03/21 11/19/22 Leatha Silvestre MD [address] [place] [address] PCP - General Internal Medicine 11/20/22 05/20/23 Ciaran Rizo MD [address] [place] [address] PCP - General Family Practice 05/21/23 documented as of this encounter
[2025-09-08 06:36] VITALS: BP 139/92; PULSE 74; RESP 18; TEMP 36.1; O2SAT 97; BMI 34.1
[2025-09-08] MEDS: LACTATED RINGERS 1,000 ML 150 ML IV CONT (06:50)
--- NOTE | 2025-09-08 08:17 | WPDANESEPPF ---
Anes - Initial Pre Proc Eval Procedure: Operation Date: 09/08/25 08:00 Proposed Procedures p Diagnostic Colonoscopy - Mauricio Armstrong MD Date/Time: 09/08/25 08:17 Surgeon: Mauricio Armstrong MD Pre Op Diagnosis: Constipation, unspecified Patient Data Age: 79 Gender: M Height: 1.83 m Weight: 114.2 kg Last Vital Signs Temp 36.1 C L 09/08/25 06:36 Pulse 74 09/08/25 06:36 Resp 18 09/08/25 06:36 BP 139/92 H 09/08/25 06:36 Pulse Ox 97 09/08/25 06:36 O2 Del Method Room Air 09/08/25 06:36 Allergies Allergy/AdvReac Type Severity Reaction Status Date / Time adhesive bandage/tape AdvReac Severe Redness of Uncoded 07/20/25 13:01 Skin Home Medications ?Medication ?Instructions ?Recorded ?Confirmed ?Type clopidogrel 75 mg tablet 75 mg PO QAM #30 tabs 06/30/21 09/08/25 Rx rosuvastatin 10 mg tablet (Crestor) 10 mg PO QAM #30 tabs 06/30/21 09/08/25 Rx diltiazem HCl 240 mg 240 mg PO QAM #30 caps 12/22/21 09/08/25 Rx capsule,extended release 24 hr, controlled aspirin 81 mg tablet,delayed 81 mg PO BID 08/22/24 09/08/25 History release ropinirole 1 mg tablet See Rx Instructions .Route 08/02/25 09/08/25 Rx .COMPLEX #180 tabs cholecalciferol (vitamin D3) 50 50 mcg PO DAILY 08/23/25 09/08/25 History mcg (2,000 unit) capsule (D3-1999) Patient hx anesthesia problems: none Family hx anesthesia problems: none Results Review: All pre-operative results and documents have been reviewed as part of the pre-operative evaluation. [facility] Past Medical History Medical History Hypertension Kidney stone Transient ischemic attack (2013) Restless leg syndrome Obstructive sleep apnea on CPAP Supraventricular tachycardia Coronary artery disease Pericarditis (11/2021) Dyslipidemia Surgical History Surgical History History of cataract extraction with lens replacement History of coronary artery stent placement (07/2021) Family History Family History Mother Heart disease Cerebrovascular accident Father Heart disease Sibling Heart disease Afib Social History Social History Social History: Surrogate decision maker: Irasema Croft, spouse. Code status: Full code. Caffeine-coffee Smoking packs per day: 0.5 Smoking cigarettes per day: 10.0 Years smoked: 15 Smoking pack-years: 7.50 Smoking status: Former smoker Tobacco type: cigarettes Second hand tobacco smoke exposure: Yes (as a child) Smoking end date: 09/09/81 Alcohol intake: current Drinks per week: 1 Alcohol use details: Beer Substance use: never Substance use type: does not use Lack of Transportation: No Lack of Food: Never True Current Housing: I Have Housing Concerned About Future Housing: No Difficulty Paying Gas/Electric Bills: No Difficulty Paying for Meds: No Currently Unemployed: No Education: High School Diploma/GED Difficulty w/ Childcare or Family Care: No Living arrangements: with family Occupation/Education: retired Spiritual care concerns: No Anes - Eval Final PreProcedure Day of Procedure 09/08/25 08:17 Patient weight: obese Heart: regular rate and rhythm Lungs: decreased breath sounds Airway: Mallampati scale class II Neurological: alert and oriented Last oral intake: >/= 8 hours ASA classification: III Emergent: no Anesthetic plan: proceed Anesthesia type and monitoring: general GIVS and standard monitoring Results Review: All pre-operative results and documents have been reviewed as part of the pre-operative evaluation. Informed Consent: The patient's anesthetic plan and its attendant risks and benefits were discussed with the patient/family/POA. Questions were solicited and answers provided to the satisfaction of the patient/family/POA.
--- NOTE | 2025-09-08 08:25 | PM.HPGS ---
History of Present Illness History of Present Illness Consent: Risks, benefits, and alternatives have been discussed and questions answered. Patient agrees to proceed with procedure. Chief complaint: Constipation, unspecified Narrative: Olaf Croft is a 79 year old male who is here for screening colonoscopy. Review of Systems Review of Systems: 12 systems were reviewed and are negative except for as per HPI. All systems reviewed & are unremarkable except as noted in HPI and below PMFSH Past Medical History Medical History Hypertension Kidney stone Transient ischemic attack (2013) Restless leg syndrome Obstructive sleep apnea on CPAP Supraventricular tachycardia Coronary artery disease Pericarditis (11/2021) Dyslipidemia Surgical History Surgical History History of cataract extraction with lens replacement History of coronary artery stent placement (07/2021) Family History Family History Mother Heart disease Cerebrovascular accident Father Heart disease Sibling Heart disease Afib Social History Social History Social History: Surrogate decision maker: Irasema Croft, spouse. Code status: Full code. Caffeine-coffee Smoking packs per day: 0.5 Smoking cigarettes per day: 10.0 Years smoked: 15 Smoking pack-years: 7.50 Smoking status: Former smoker Tobacco type: cigarettes Second hand tobacco smoke exposure: Yes (as a child) Smoking end date: 09/09/81 Alcohol intake: current Drinks per week: 1 Alcohol use details: Beer Substance use: never Substance use type: does not use Lack of Transportation: No Lack of Food: Never True Current Housing: I Have Housing Concerned About Future Housing: No Difficulty Paying Gas/Electric Bills: No Difficulty Paying for Meds: No Currently Unemployed: No Education: High School Diploma/GED Difficulty w/ Childcare or Family Care: No Living arrangements: with family Occupation/Education: retired Spiritual care concerns: No Meds Home Medications and Allergies Home Medications ?Medication ?Instructions ?Recorded ?Confirmed ?Type clopidogrel 75 mg tablet 75 mg PO QAM #30 tabs 06/30/21 09/08/25 Rx rosuvastatin 10 mg tablet (Crestor) 10 mg PO QAM #30 tabs 06/30/21 09/08/25 Rx diltiazem HCl 240 mg 240 mg PO QAM #30 caps 12/22/21 09/08/25 Rx capsule,extended release 24 hr, controlled aspirin 81 mg tablet,delayed 81 mg PO BID 08/22/24 09/08/25 History release ropinirole 1 mg tablet See Rx Instructions .Route 08/02/25 09/08/25 Rx .COMPLEX #180 tabs cholecalciferol (vitamin D3) 50 50 mcg PO DAILY 08/23/25 09/08/25 History mcg (2,000 unit) capsule (D3-1999) Allergies Allergy/AdvReac Type Severity Reaction Status Date / Time adhesive bandage/tape AdvReac Severe Redness of Uncoded 07/20/25 13:01 Skin Vital Signs Vital Signs - 24 hr 09/08/25 06:36 Temperature 97 F L Pulse Rate 74 Respiratory Rate 18 Blood Pressure 139/92 H Pulse Oximetry 97 Oxygen Delivery Room Air Exam Narrative: General: male in no acute respiratory distress who is nontoxic appearing, lying semi recumbent in bed. HEENT: Normocephalic. Atraumatic.Extraocular movement intact. Sclera clear and anicteric. No facial asymmetry. Chest: Lungs are clear to auscultation bilaterally. No wheezes or crackles. CV: Heart was regular rate and rhythm. S1/S2. No murmurs, gallops, or rubs. Abd: Abdomen was soft. Nontender. Nondistended. Positive bowel sounds. No organomegaly or masses. Ext: No clubbing, cyanosis, or edema. 2+ DP pulses bilaterally. Able to move his toes. Dressing clean/dry/intact to the lateral left leg. Neuro: Patient is alert. Speech is clear. Mild bilateral numbness to the feet (patient states this is chronic and unchanged). Const: General: comfortable Assessment and Plan Assessment and plan (1) Colon cancer screening: Code(s): Z12.11 - Encounter for screening for malignant neoplasm of colon Status: Acute Attestation Student Attestation 79-year-old male who is here for screening colonoscopy.
[2025-09-08 08:42] VITALS: BP 105/63; PULSE 64; RESP 13; O2SAT 97
--- NOTE | 2025-09-08 08:45 | PM.HPGS ---
History of Present Illness History of Present Illness Consent: Risks, benefits, and alternatives have been discussed and questions answered. Patient agrees to proceed with procedure. Chief complaint: Constipation, unspecified Narrative: Olaf Croft is a 79 year old male [facility] Past Medical History Medical History Hypertension Kidney stone Transient ischemic attack (2013) Restless leg syndrome Obstructive sleep apnea on CPAP Supraventricular tachycardia Coronary artery disease Pericarditis (11/2021) Dyslipidemia Surgical History Surgical History History of cataract extraction with lens replacement History of coronary artery stent placement (07/2021) Family History Family History Mother Heart disease Cerebrovascular accident Father Heart disease Sibling Heart disease Afib Social History Social History Social History: Surrogate decision maker: Irasema Croft, spouse. Code status: Full code. Caffeine-coffee Smoking packs per day: 0.5 Smoking cigarettes per day: 10.0 Years smoked: 15 Smoking pack-years: 7.50 Smoking status: Former smoker Tobacco type: cigarettes Second hand tobacco smoke exposure: Yes (as a child) Smoking end date: 09/09/81 Alcohol intake: current Drinks per week: 1 Alcohol use details: Beer Substance use: never Substance use type: does not use Lack of Transportation: No Lack of Food: Never True Current Housing: I Have Housing Concerned About Future Housing: No Difficulty Paying Gas/Electric Bills: No Difficulty Paying for Meds: No Currently Unemployed: No Education: High School Diploma/GED Difficulty w/ Childcare or Family Care: No Living arrangements: with family Occupation/Education: retired Spiritual care concerns: No Meds Home Medications and Allergies Home Medications ?Medication ?Instructions ?Recorded ?Confirmed ?Type clopidogrel 75 mg tablet 75 mg PO QAM #30 tabs 06/30/21 09/08/25 Rx rosuvastatin 10 mg tablet (Crestor) 10 mg PO QAM #30 tabs 06/30/21 09/08/25 Rx diltiazem HCl 240 mg 240 mg PO QAM #30 caps 12/22/21 09/08/25 Rx capsule,extended release 24 hr, controlled aspirin 81 mg tablet,delayed 81 mg PO BID 08/22/24 09/08/25 History release ropinirole 1 mg tablet See Rx Instructions .Route 08/02/25 09/08/25 Rx .COMPLEX #180 tabs cholecalciferol (vitamin D3) 50 50 mcg PO DAILY 08/23/25 09/08/25 History mcg (2,000 unit) capsule (D3-1999) Allergies Allergy/AdvReac Type Severity Reaction Status Date / Time adhesive bandage/tape AdvReac Severe Redness of Uncoded 07/20/25 13:01 Skin Vital Signs Vital Signs - 24 hr 09/08/25 06:36 09/08/25 08:42 Temperature 97 F L Pulse Rate 74 64 Respiratory Rate 18 13 Blood Pressure 139/92 H 105/63 Pulse Oximetry 97 97 Oxygen Delivery Room Air Room Air
[2025-09-08 08:52] VITALS: BP 105/68; PULSE 62; RESP 18; O2SAT 97
[2025-09-08 09:02] VITALS: BP 114/73; PULSE 64; RESP 19; O2SAT 94
== END 2025-09-08 09:10 | disposition home or self-care (01) ==
PROVIDERS: Internal Medicine Gastroenterology; PCP Family Medicine; Referring Provider Family Medicine; Visit Provider Internal Medicine Gastroenterology
PROC: 0DJD8ZZ Inspection of Lower Intestinal Tract, Via Natural or Artificial Opening Endoscopic (ICD-10-PCS; CPT 45378; principal; 2025-09-08 08:00)
DX: Z12.11 Encounter for screening for malignant neoplasm of colon (principal); K59.00 Constipation, unspecified; Z87.891 Personal history of nicotine dependence
CPT/HCPCS: G0121; J2003; J2704; J7120